=== PATIENT | male | born 1950 | race Caucasian/White ===

== ENCOUNTER → 2021-02-24 08:19 | Outpatient (CLI) | payer MEDICARE, SELFPAY ==
--- NOTE | ~2021-02-24 | CT_ITS ---
EXAMINATION: CT thoracic spine wo con DATE: 02/24/2021 08:52 INDICATION: Thoracic back pain. TECHNIQUE: Computed tomography (CT) of the thoracic spine was performed without intravenous contrast. Automated exposure control and iterative reconstruction technique were employed. The dose-length pro duct was 1058.02 mGy-cm. COMPARISON: None FINDINGS: There is 7 degrees dextrocurvature of thoracic spine. There is mild chronic anterior wedgin g of T5-T8, T11, and T12 vertebral bodies. There is severely decreased disc height from T5-T6 through T8-T9. There is mild to moderately decreased disc height at most other levels. There are bridging en dplate osteophytes from T5 to T12, consistent with diffuse idiopathic skeletal hyperostosis (DISH). T here is multilevel mild facet joint osteoarthritis. No neural foraminal stenosis or central canal maurizio nosis. There is ectasia of ascending aorta measuring 4.4 cm. The central pulmonary arteries are enlar ged, consistent with pulmonary arterial hypertension. A calcified right lung nodule and calcified rig ht hilar lymph nodes are consistent with old granulomatous disease. Cardiomegaly is noted. There are coronary artery calcifications. There are changes of aortic valve replacement and coronary artery byp ass grafting. There are surgical changes of the stomach. Calcifications in the spleen are consistent with old granulomatous disease. IMPRESSION: 1. Severe thoracic spondylosis. 2. DISH. Reviewed, dictated and finalized at location B.
--- NOTE | ~2021-02-24 | CT_ITS ---
EXAMINATION: CT lumbar spine wo con DATE: 02/24/2021 08:52 INDICATION: Lumbar spinal stenosis. Low back pain. TECHNIQUE: Computed tomography (CT) of the lumbar spine was performed without intravenous contrast. A utomated exposure control and iterative reconstruction technique were employed. The dose-length produ ct was 1037.84 mGy-cm. COMPARISON: None FINDINGS: There is 3 degrees levocurvature of lumbar spine. There is mild chronic anterior wedging of T12 vertebral body. There is mildly decreased disc height at T11-T12 and T12-L1. The following disc levels are specifically discussed: L1-L2: The disc does not extend beyond the endplate margin. There is mild bilateral facet joint osteo arthritis. There is no neural foraminal stenosis. There is no central canal stenosis. L2-L3: The disc is mildly bulging. There is severe bilateral facet joint osteoarthritis. There is no neural foraminal stenosis. There is no central canal stenosis. L3-L4: The disc is bulging. There is severe bilateral facet joint osteoarthritis. There is mild bilat eral neural foraminal stenosis. There is mild central canal stenosis. L4-L5: The disc is bulging. There is severe bilateral facet joint osteoarthritis. There is mild bilat eral neural foraminal stenosis. There is no central canal stenosis. L5-S1: The disc does not extend beyond the endplate margin. There is severe bilateral facet joint ost eoarthritis. There is mild bilateral neural foraminal stenosis. There is no central canal stenosis. IMPRESSION: 1. Mild lumbar spondylosis. Reviewed, dictated and finalized at location B. IMPRESSION: 1. Mild lumbar spondylosis.
== END ==
PROVIDERS: PCP Internal Medicine; Visit Provider Internal Medicine
DX: M47.894 Other spondylosis, thoracic region (principal); M48.14 Ankylosing hyperostosis [Forestier], thoracic region; M47.896 Other spondylosis, lumbar region
CPT/HCPCS: 72128; 72131

== ENCOUNTER 2022-04-17 17:42 | Emergency (ER) | payer MEDICARE, SELFPAY ==
--- NOTE | ~2022-04-17 | XR_ITS ---
EXAM: XR knee LT 3V, XR tibia fibula LT 2V DATE: 04/17/2022 18:35 (accession [id number]), 04/17/2022 18:36 (accession [id number]) HISTORY: fall injury,fall 1 wk ago,abrasions ant Lt knee, edema left lower leg. COMPARISON: None available. FINDINGS: Decreased mineralization. Left knee arthroplasty, without hardware fracture or abnormal pe rihardware lucency. Small volume left knee joint fluid. No fracture or dislocation. Mild degenerative change at the ankle joint. IMPRESSION: No acute osseous finding in the left knee or left tibia/fibula. Reviewed, dictated and finalized at location K. IMPRESSION: No acute osseous finding in the left knee or left tibia/fibula.
--- NOTE | ~2022-04-17 | XR_ITS ---
EXAM: XR elbow LT min 3V DATE: 04/17/2022 18:34 HISTORY: fall injury;fell 1 wk ago, abrasion post Lt elbow . COMPARISON: None available. FINDINGS: Normal mineralization. No fracture or dislocation. No lytic or blastic lesion. Joint space s are maintained. No erosion or periosteal change. Multiple surgical clips in the mid forearm. IMPRESSION: No acute osseous finding in the left elbow. Reviewed, dictated and finalized at location K.
[2022-04-17 17:45] VITALS: BP 151/88; PULSE 84; RESP 16; TEMP 36.4; O2SAT 98
--- NOTE | 2022-04-17 18:06 | ED.LOWEXIN ---
HPI - Extremity Injury (Lower) General Chief Complaint: Extremity Injury, Lower Stated Complaint: fall last tuesday, busted arm and leg Time Seen by Provider: 04/17/22 17:54 History of Present Illness HPI Narrative: 72-year-old male presents to the emergency room complaints of multiple injuries following a fall. Patient states 7 days ago he suffered a mechanical fall from standing position, landing directly on his left knee and then rolled onto his left elbow and lower back. Patient states that he suffered abrasions to his left knee and left elbow. Patient is currently taking Coumadin. Patient states that he noticed bruising immediately around his left knee which then spread into his bowen and ankle. Patient states that left knee pain is worse with ambulation, but is able to bear weight. Denies head injury. Denies neck or back pain. Related Data Home Medications Medication Instructions Recorded Confirmed alprazolam 1 mg tablet 1 mg PO TID PRN 04/30/20 04/13/22 aspirin 81 mg chewable tablet 81 mg PO DAILY 04/30/20 04/13/22 clotrimazole-betamethasone 1 1 applic topical BID 04/30/20 04/13/22 %-0.05 % topical cream docusate sodium 100 mg capsule 100 mg PO BID 04/30/20 04/13/22 (Colace) dutasteride 0.5 mg-tamsulosin ER 1 cap PO DAILY 04/30/20 04/13/22 0.4 mg capsule ext.release 24hr mphas (Bibiana) empagliflozin 10 mg tablet 10 mg PO DAILY 04/30/20 04/13/22 (Jardiance) finasteride 5 mg tablet 5 mg PO DAILY 04/30/20 04/13/22 furosemide 20 mg tablet 20 mg PO QAM 04/30/20 04/13/22 hydrocodone 10 mg-acetaminophen 15 ml PO Q12H PRN 04/30/20 04/13/22 325 mg/15 mL (15 mL) oral solution isosorbide mononitrate 30 mg 30 mg PO DAILY 04/30/20 04/13/22 tablet,extended release 24 hr metoprolol tartrate 50 mg tablet 50 mg PO Q12H 04/30/20 04/13/22 nitroglycerin 0.3 mg sublingual 0.3 mg sublingual Q5M PRN 04/30/20 04/13/22 tablet (Nitrostat) rosuvastatin 10 mg tablet (Crestor) 10 mg PO DAILY 04/30/20 04/13/22 sitagliptin 100 mg tablet (Januvia) 100 mg PO DAILY 04/30/20 04/13/22 solifenacin 10 mg tablet (Vesicare) 10 mg PO DAILY 04/30/20 04/13/22 torsemide 20 mg tablet 20 mg PO QAM 04/30/20 04/13/22 triamcinolone acetonide 0.1 % 1 applic topical BID PRN 04/30/20 04/13/22 topical cream valsartan 80 mg tablet (Diovan) 80 mg PO DAILY 04/30/20 04/13/22 warfarin 7.5 mg tablet 7.5 mg PO 2XW 04/30/20 04/13/22 insulin detemir U-100 100 unit/mL 25 unit subcut QHS 03/16/22 04/13/22 (3 mL) subcutaneous pen (Levemir FlexTouch U-100 Insulin) metformin 1,000 mg 24 hr 1,000 mg PO BID 03/16/22 04/13/22 tablet,extended release pantoprazole 40 mg tablet,delayed 40 mg PO QAM 03/16/22 04/13/22 release tamsulosin 0.4 mg capsule 0.4 mg PO DAILY 03/16/22 04/13/22 Allergies Allergy/AdvReac Type Severity Reaction Status Date / Time No Known Allergies Allergy Verified 04/13/22 10:35 Review of Systems Review of Systems: CONSTITUTIONAL: Denies fever, chills, or sweats. EYES: Denies visual changes, redness, or discharge. ENT: Denies rhinorrhea, congestion, sore throat, or otalgia. CARDIOVASCULAR: Denies chest pain, palpitations, or edema. RESPIRATORY: Denies cough or dyspnea. GASTROINTESTINAL: Denies abdominal pain, nausea, vomiting, or diarrhea. GENITOURINARY: Denies dysuria or hematuria. SKIN: Reports abrasions to left knee and left elbow MUSCULOSKELETAL: Reports left knee and left elbow pain NEUROLOGIC: Denies headache, numbness, dizziness, or weakness. PSYCHIATRIC: Denies anxiety or depression. [facility], [facility] Past Medical History Medical History Anxiety Arthritis HTN (hypertension) Family History Family History Father Diabetes mellitus Heart disease Mother Heart disease Social History Social History Smoking status: Never smoker Alcohol intake: never Substance
[2022-04-17 18:55] LABS: Basophils Percent Auto 0.3 % (0.2-1.2); Eosinophils Absolute Auto 0.1 K/mm3 (0-0.3); Eosinophils Percent Auto 0.8 % (0-4.4); Hematocrit 34.2 % (42.0-52.0); Hemoglobin 10.9 g/dL (14.0-18.0); Immature Granulocyte Absolute 0.03 K/mm3 (0.00-0.031); Immature Granulocyte Percent A 0.3 % (0-0.5); Lymphocytes Absolute Auto 1.82 K/mm3 (0.9-3.2); Lymphocytes Percent Auto 18.2 % (18.3-44.2); Mean Corpuscular HGB Conc 31.9 g/dl (32-36); Mean Corpuscular Hemoglobin 28.2 pg (26-34); Mean Corpuscular Volume 88.4 fl (80-100); Mean Platelet Volume 9.4 fl (7.4-10.4); Monocytes Percent Auto 10.4 % (2.6-8.5); Platelet Count Result 204 k/mm3 (150-375); Red Blood Count 3.87 M/mm3 (4.6-6.20); Red Cell Distribution Width 13.8 % (11.5-14.5)
[2022-04-17 19:04] LABS: Alanine Aminotransferase 14 U/L (6-50); Albumin Level 3.7 g/dL (3.5-5.1); Alkaline Phosphatase 60 U/L (38-126); Anion Gap 6 mmol/L (8-16); Aspartate Amino Transferase 19 U/L (17-59); Bilirubin,Total 0.4 mg/dL (0.2-1.3); Blood Urea Nitrogen 18 mg/dL (9-20); Calcium 8.4 mg/dL (8.4-10.2); Carbon Dioxide 31 mmol/L (22-30); Chloride 102 mmol/L (98-107); Estimated CRCL calculation 97 ml/min; Estimated Glomerular Filt Rate > 60; Glucose 177 mg/dL (65-110); Sodium 139 mmol/L (137-145)
[2022-04-17 19:06] LABS: Prothrombin Time 30.4 Seconds (11.1-14.7)
[2022-04-17] MEDS: CEPHALEXIN 500 MG CAPSULE PO (19:29)
== END 2022-04-17 19:43 | disposition home or self-care (01) ==
PROVIDERS: Emergency Provider Nurse Practitioner Family; PCP Family Medicine
DX: S50.02XA Contusion of left elbow, initial encounter (principal); S80.212A Abrasion, left knee, initial encounter; L08.9 Local infection of the skin and subcutaneous tissue, unspecified; I10 Essential (primary) hypertension; M19.90 Unspecified osteoarthritis, unspecified site; Z79.4 Long term (current) use of insulin; Z79.84 Long term (current) use of oral hypoglycemic drugs; Z79.01 Long term (current) use of anticoagulants; W18.30XA Fall on same level, unspecified, initial encounter
CPT/HCPCS: 36415; 73080; 73562; 73590; 80053; 83605; 85025; 85610; 87070; 87205; 99284; A9270

== ENCOUNTER → 2022-04-30 09:07 | Outpatient (CLI) | payer MEDICARE, SELFPAY ==
--- NOTE | ~2022-04-30 | MR_ITS ---
EXAMINATION: MR lower leg LT wo con DATE: 04/30/2022 10:06 INDICATION: Cellulitis at the left leg TECHNIQUE: Magnetic resonance imaging (MRI) of the left lower leg was performed without intravenous c ontrast. Sequences included axial, sagittal and coronal T1-weighted FSE and fluid sensitive FSE STIR. The contralateral right lower leg is included on the coronal images. COMPARISON: Radiographs dated FINDINGS: Metallic magnetic field artifact about the left knee associated with a total knee arthroplasty. Catarina l bone marrow signal throughout the bilateral lower legs. Prominent enthesopathic ossification at the distal patellar tendon. Focal asymmetric diffuse fatty atrophy of the musculature at the bilateral l ower legs. Diffuse subcutaneous edema throughout the bilateral calves including minimal fluid along t he margins of the superficial muscular fascia particularly at the posterior calves. No abnormal locul ated fluid collections to suggest abscess or hematoma. Visualized portion of the tendons are normal. IMPRESSION: 1. Relatively symmetric diffuse subcutaneous edema at the bilateral calves with no abscess. 2. Likely age-related symmetric mild diffuse fatty atrophy of the musculature of the bilateral lower legs. Reviewed, dictated and finalized at location B. IMPRESSION: 1. Relatively symmetric diffuse subcutaneous edema at the bilateral calves with no abscess. 2. Likely age-related symmetric mild diffuse fatty atrophy of the musculature o f the bilateral lower legs.
== END ==
PROVIDERS: PCP Internal Medicine; Visit Provider Internal Medicine
DX: T79.A22A Traumatic compartment syndrome of left lower extremity, initial encounter (principal); S80.12XA Contusion of left lower leg, initial encounter; X58.XXXA Exposure to other specified factors, initial encounter
CPT/HCPCS: 73718

== ENCOUNTER 2022-06-01 15:03 | Outpatient (CLI) | payer MEDICARE, SELFPAY ==
[2022-06-01 18:36] LABS: Basophils Percent Auto 0.2 % (0.2-1.2); Eosinophils Absolute Auto 0.1 K/mm3 (0-0.3); Eosinophils Percent Auto 1.1 % (0-4.4); Hematocrit 40.4 % (42.0-52.0); Hemoglobin 12.5 g/dL (14.0-18.0); Immature Granulocyte Absolute 0.04 K/mm3 (0.00-0.031); Immature Granulocyte Percent A 0.4 % (0-0.5); Lymphocytes Absolute Auto 2.37 K/mm3 (0.9-3.2); Lymphocytes Percent Auto 24.7 % (18.3-44.2); Mean Corpuscular HGB Conc 30.9 g/dl (32-36); Mean Corpuscular Hemoglobin 27.4 pg (26-34); Mean Corpuscular Volume 88.4 fl (80-100); Mean Platelet Volume 10.1 fl (7.4-10.4); Neutrophils Absolute Auto 6.1 K/mm3 (1.3-6.7); Neutrophils Percent Auto 63.6 % (45.5-73.1); Platelet Count Result 210 k/mm3 (150-375); Red Blood Count 4.57 M/mm3 (4.6-6.20); Red Cell Distribution Width 13.9 % (11.5-14.5); White Blood Count 9.6 K/mm3 (4.5-10.0)
[2022-06-01 18:48] LABS: Alanine Aminotransferase 12 U/L (6-50); Albumin Level 4.2 g/dL (3.5-5.1); Alkaline Phosphatase 59 U/L (38-126); Anion Gap 11 mmol/L (8-16); Aspartate Amino Transferase 30 U/L (17-59); Bilirubin,Total 0.3 mg/dL (0.2-1.3); Blood Urea Nitrogen 18 mg/dL (9-20); Calcium 8.9 mg/dL (8.4-10.2); Carbon Dioxide 27 mmol/L (22-30); Chloride 105 mmol/L (98-107); Cholesterol 144 mg/dL (0-200); Estimated Glomerular Filt Rate > 60; Glucose 98 mg/dL (65-110); HDL Direct 39 mg/dL; Potassium 4.2 mmol/L (3.4-5.0); Sodium 143 mmol/L (137-145); Triglycerides 190 mg/dL (<150)
[2022-06-01 19:04] LABS: LDL Cholesterol Direct 54 mg/dL
[2022-06-01 19:10] LABS: Creatinine Urine 192.3 mg/dL
[2022-06-01 19:13] LABS: MALB Creatinine Ratio 18.8 mg/g (0-30); Microalbumin Urine Random 36.2 mg/L (0-16.7)
[2022-06-01 19:24] LABS: INR 1.8; Prothrombin Time 20.6 Seconds (11.1-14.7)
[2022-06-01 20:28] LABS: Prostate Specific Antigen 0.8 ng/mL (< OR = 4.0)
[2022-06-01 20:32] LABS: Hemoglobin A1C 6.3 % (<5.7)
[2022-06-01 21:07] LABS: Folic Acid 10.5 ng/mL (2.76->20)
== END 2022-06-01 15:04 | disposition home or self-care (01) ==
LOC: ANHGOSHLAB 15:05
PROVIDERS: PCP Internal Medicine; Visit Provider Internal Medicine
DX: Z12.5 Encounter for screening for malignant neoplasm of prostate (principal); Z95.5 Presence of coronary angioplasty implant and graft; I25.10 Atherosclerotic heart disease of native coronary artery without angina pectoris; Z79.01 Long term (current) use of anticoagulants; E11.9 Type 2 diabetes mellitus without complications; Z95.2 Presence of prosthetic heart valve; D64.9 Anemia, unspecified
CPT/HCPCS: 36415; 80053; 80061; 82043; 82607; 82728; 82746; 83036; 84153; 85025; 85610; G0103

== ENCOUNTER 2022-06-14 09:05 | Outpatient (CLI) | payer MEDICARE, SELFPAY ==
[2022-06-14 19:28] LABS: INR 1.6; Prothrombin Time 18.3 Seconds (11.1-14.7)
== END 2022-06-14 09:06 | disposition home or self-care (01) ==
PROVIDERS: PCP Internal Medicine; Visit Provider Internal Medicine Cardiovascular Disease
DX: I25.810 Atherosclerosis of coronary artery bypass graft(s) without angina pectoris (principal)
CPT/HCPCS: 36415; 85610

== ENCOUNTER 2022-06-22 13:22 | Outpatient (CLI) | payer MEDICARE, SELFPAY ==
[2022-06-22 20:43] LABS: INR 3.5; Prothrombin Time 34.3 Seconds (11.1-14.7)
== END 2022-06-22 13:23 | disposition home or self-care (01) ==
LOC: ANHGOSHLAB 13:30
PROVIDERS: PCP Internal Medicine; Visit Provider Internal Medicine Cardiovascular Disease
DX: Z79.01 Long term (current) use of anticoagulants (principal)
CPT/HCPCS: 36415; 85610

== ENCOUNTER → 2022-07-01 09:13 | Outpatient (CLI) | payer MEDICARE, SELFPAY ==
--- NOTE | ~2022-07-01 | XR_ITS ---
XR chest 2V 07/01/2022 09:32 Indication: Cough. Wheezing. Procedure: PA and lateral views the chest Comparison: No prior studies for comparison. Findings: Status post median sternotomy for CABG. Cardiomegaly. There is a prosthetic heart valve. No pleural effusion or pneumothorax. No acute osseous abnormality. Mild thoracic spondylosis. Impression: 1: No acute cardiopulmonary disease. Reviewed, dictated and finalized at location A. Impression: 1: No acute cardiopulmonary disease.
== END ==
PROVIDERS: PCP Internal Medicine; Visit Provider Internal Medicine
DX: R05.9 Cough, unspecified (principal)
CPT/HCPCS: 71046

== ENCOUNTER 2022-07-15 10:40 | Outpatient (RCR) | payer MEDICARE, SELFPAY ==
[2022-07-15 19:46] LABS: Basophils Percent Auto 0.3 % (0.2-1.2); Eosinophils Absolute Auto 0.1 K/mm3 (0-0.3); Eosinophils Percent Auto 1.3 % (0-4.4); Hematocrit 39.2 % (42.0-52.0); Hemoglobin 12.8 g/dL (14.0-18.0); Immature Granulocyte Absolute 0.03 K/mm3 (0.00-0.031); Immature Granulocyte Percent A 0.3 % (0-0.5); Lymphocytes Absolute Auto 2.33 K/mm3 (0.9-3.2); Mean Corpuscular HGB Conc 32.7 g/dl (32-36); Mean Corpuscular Hemoglobin 27.2 pg (26-34); Mean Corpuscular Volume 83.2 fl (80-100); Mean Platelet Volume 10.4 fl (7.4-10.4); Monocytes Percent Auto 8.8 % (2.6-8.5); Neutrophils Absolute Auto 7.6 K/mm3 (1.3-6.7); Neutrophils Percent Auto 68.3 % (45.5-73.1); Platelet Count Result 218 k/mm3 (150-375); Red Blood Count 4.71 M/mm3 (4.6-6.20); Red Cell Distribution Width 14.2 % (11.5-14.5); White Blood Count 11.1 K/mm3 (4.5-10.0)
[2022-07-15 20:20] LABS: Hemoglobin A1C 6.2 % (<5.7)
[2022-07-15 21:26] LABS: Folic Acid 10.4 ng/mL (2.76->20)
== END 2022-07-15 10:41 | disposition home or self-care (01) ==
LOC: ANHGOSHLAB 10:40
PROVIDERS: PCP Internal Medicine; Visit Provider Internal Medicine
DX: D51.9 Vitamin B12 deficiency anemia, unspecified (principal); D64.9 Anemia, unspecified; E11.9 Type 2 diabetes mellitus without complications
CPT/HCPCS: 36415; 82607; 82746; 83036; 85025

== ENCOUNTER 2022-09-23 08:51 | Outpatient (CLI) | payer MEDICARE, SELFPAY ==
[2022-09-23 19:46] LABS: Hematocrit 39.7 % (42.0-52.0); Hemoglobin 12.5 g/dL (14.0-18.0); Mean Corpuscular HGB Conc 31.5 g/dl (32-36); Mean Corpuscular Hemoglobin 26.6 pg (26-34); Mean Corpuscular Volume 84.5 fl (80-100); Mean Platelet Volume 10.1 fl (7.4-10.4); Platelet Count Result 208 k/mm3 (150-375); Red Cell Distribution Width 14.1 % (11.5-14.5)
[2022-09-23 20:29] LABS: Hemoglobin A1C 7.3 % (<5.7)
== END 2022-09-23 08:52 | disposition home or self-care (01) ==
PROVIDERS: PCP Internal Medicine; Visit Provider Internal Medicine
DX: E11.59 Type 2 diabetes mellitus with other circulatory complications (principal); Z79.4 Long term (current) use of insulin; D51.9 Vitamin B12 deficiency anemia, unspecified
CPT/HCPCS: 36415; 82607; 83036; 85027

== ENCOUNTER 2022-09-23 09:36 | Outpatient (RCR) | payer MEDICARE, SELFPAY ==
[2022-07-19 19:26] LABS: INR 2.6; Prothrombin Time 26.7 Seconds (11.1-14.7)
[2022-09-23 19:35] LABS: Prothrombin Time 22.4 Seconds (11.1-14.7)
== END 2022-10-17 23:59 | disposition home or self-care (01) ==
LOC: ANHGOSHLAB 09:36
PROVIDERS: PCP Internal Medicine; Referring Provider Internal Medicine Cardiovascular Disease; Visit Provider Internal Medicine Cardiovascular Disease
DX: Z51.81 Encounter for therapeutic drug level monitoring (principal); E11.59 Type 2 diabetes mellitus with other circulatory complications; Z79.4 Long term (current) use of insulin; Z79.01 Long term (current) use of anticoagulants
CPT/HCPCS: 36415; 82607; 83036; 85027; 85610

== ENCOUNTER → 2022-10-25 13:24 | Outpatient (CLI) | payer MEDICARE, SELFPAY ==
--- NOTE | ~2022-10-25 | XR_ITS ---
Clinical Indication: Cough, shortness of breath AP and lateral views of the chest: Comparison: 07/01/2022 Findings: Small bilateral pleural effusions are present. Cardiomediastinal silhouette is stable, sta tus post CABG. Bones and soft tissues are unremarkable. Impression: Small bilateral pleural effusions. Status post CABG and cardiac valve replacement. Reviewed, dictated and finalized at location . [employer] Impression: Small bilateral pleural effusions. Status post CABG and cardiac valve replacement.
== END ==
PROVIDERS: PCP Clinical Nurse Specialist; Visit Provider Clinical Nurse Specialist
DX: R05.9 Cough, unspecified (principal); R06.02 Shortness of breath; J90 Pleural effusion, not elsewhere classified
CPT/HCPCS: 71046

== ENCOUNTER 2023-01-03 08:01 | Outpatient (CLI) | payer MEDICARE, SELFPAY ==
[2023-01-03 18:56] LABS: Alanine Aminotransferase 20 U/L (6-50); Albumin Level 3.9 g/dL (3.5-5.1); Alkaline Phosphatase 67 U/L (38-126); Anion Gap 6 mmol/L (8-16); Aspartate Amino Transferase 42 U/L (17-59); Bilirubin,Total 0.6 mg/dL (0.2-1.3); Blood Urea Nitrogen 28 mg/dL (9-20); Calcium 8.8 mg/dL (8.4-10.2); Carbon Dioxide 28 mmol/L (22-30); Chloride 105 mmol/L (98-107); Cholesterol 143 mg/dL (0-200); Estimated Glomerular Filt Rate > 60; Glucose 108 mg/dL (65-110); HDL Direct 33 mg/dL; Potassium 4.1 mmol/L (3.4-5.0); Sodium 139 mmol/L (137-145); Triglycerides 310 mg/dL (<150)
[2023-01-03 19:09] LABS: LDL Cholesterol Direct 57 mg/dL
[2023-01-03 19:36] LABS: Hematocrit 43.1 % (42.0-52.0); Mean Corpuscular HGB Conc 32.5 g/dl (32-36); Mean Corpuscular Hemoglobin 27.5 pg (26-34); Mean Corpuscular Volume 84.5 fl (80-100); Mean Platelet Volume 10.9 fl (7.4-10.4); Platelet Count Result 249 k/mm3 (150-375); Red Cell Distribution Width 15.3 % (11.5-14.5); White Blood Count 11.2 K/mm3 (4.5-10.0)
[2023-01-03 20:10] LABS: Hemoglobin A1C 7.2 % (<5.7)
== END 2023-01-03 08:02 | disposition home or self-care (01) ==
LOC: ANHGOSHLAB 08:03
PROVIDERS: PCP Internal Medicine; Visit Provider Internal Medicine
DX: E11.59 Type 2 diabetes mellitus with other circulatory complications (principal); I25.810 Atherosclerosis of coronary artery bypass graft(s) without angina pectoris; Z79.4 Long term (current) use of insulin
CPT/HCPCS: 36415; 80053; 80061; 83036; 85027

== ENCOUNTER 2023-01-18 07:57 | Outpatient (RCR) | payer MEDICARE, SELFPAY ==
[2022-10-22 20:00] LABS: INR 2.7
[2022-11-05 21:23] LABS: INR 3.7; Prothrombin Time 35.9 Seconds (11.1-14.7)
[2022-11-19 17:34] LABS: INR 2.3; Prothrombin Time 24.7 Seconds (11.1-14.7)
[2022-12-03 20:25] LABS: INR 2.1
[2022-12-10 19:50] LABS: INR 2.3; Prothrombin Time 24.2 Seconds (11.1-14.7)
[2022-12-24 20:09] LABS: INR 1.8; Prothrombin Time 20.4 Seconds (11.1-14.7)
[2023-01-03 19:07] LABS: INR 2.9; Prothrombin Time 29.2 Seconds (11.1-14.7)
[2023-01-18 10:30] LABS: INR 1.3; Prothrombin Time 15.4 Seconds (11.1-14.7)
== END 2023-01-20 23:59 | disposition home or self-care (01) ==
LOC: ANHGOSHLAB 07:57
PROVIDERS: PCP Internal Medicine; Visit Provider Internal Medicine Cardiovascular Disease
DX: Z51.81 Encounter for therapeutic drug level monitoring (principal); Z79.01 Long term (current) use of anticoagulants; Z79.899 Other long term (current) drug therapy
CPT/HCPCS: 36415; 80053; 80061; 83036; 85027; 85610

== ENCOUNTER 2023-02-08 08:15 | Outpatient (RCR) | payer MEDICARE, SELFPAY ==
[2023-01-31 18:48] LABS: INR 4.7; Prothrombin Time 42.5 Seconds (11.1-14.7)
[2023-02-08 20:17] LABS: INR 2.5; Prothrombin Time 26.2 Seconds (11.1-14.7)
== END 2023-05-01 23:59 | disposition home or self-care (01) ==
LOC: ANHGOSHLAB 08:15
PROVIDERS: PCP Internal Medicine; Visit Provider Internal Medicine
DX: Z51.81 Encounter for therapeutic drug level monitoring (principal); Z79.01 Long term (current) use of anticoagulants
CPT/HCPCS: 36415; 85610

== ENCOUNTER 2023-05-02 08:16 | Outpatient (CLI) | payer MEDICARE, SELFPAY ==
[2023-05-02 15:56] LABS: Hematocrit 41.4 % (42.0-52.0); Hemoglobin 13.4 g/dL (14.0-18.0); Mean Corpuscular HGB Conc 32.4 g/dl (32-36); Mean Corpuscular Hemoglobin 28.1 pg (26-34); Mean Corpuscular Volume 86.8 fl (80-100); Mean Platelet Volume 10.4 fl (7.4-10.4); Platelet Count Result 186 k/mm3 (150-375); Red Blood Count 4.77 M/mm3 (4.6-6.20); White Blood Count 8.6 K/mm3 (4.5-10.0)
[2023-05-02 17:32] LABS: Hemoglobin A1C 5.7 % (<5.7)
[2023-05-02 17:46] LABS: Alanine Aminotransferase 15 U/L (6-50); Albumin Level 3.9 g/dL (3.5-5.1); Alkaline Phosphatase 47 U/L (38-126); Anion Gap 7 mmol/L (8-16); Aspartate Amino Transferase 25 U/L (17-59); Bilirubin,Total 0.4 mg/dL (0.2-1.3); Blood Urea Nitrogen 16 mg/dL (9-20); Calcium 8.7 mg/dL (8.4-10.2); Carbon Dioxide 27 mmol/L (22-30); Chloride 104 mmol/L (98-107); Cholesterol 118 mg/dL (0-200); Estimated Glomerular Filt Rate > 60; Glucose 141 mg/dL (65-110); HDL Direct 33 mg/dL; Potassium 3.5 mmol/L (3.4-5.0); Sodium 138 mmol/L (137-145); Triglycerides 199 mg/dL (<150)
[2023-05-02 17:57] LABS: LDL Cholesterol Direct 46 mg/dL
== END 2023-05-02 08:17 | disposition home or self-care (01) ==
LOC: ANHGOSHLAB 08:19
PROVIDERS: PCP Internal Medicine; Visit Provider Internal Medicine
DX: E11.59 Type 2 diabetes mellitus with other circulatory complications (principal); Z79.4 Long term (current) use of insulin
CPT/HCPCS: 36415; 80053; 80061; 83036; 85027

== ENCOUNTER 2023-05-19 08:59 | Outpatient (RCR) | payer MEDICARE, SELFPAY ==
[2023-03-01 20:05] LABS: Prothrombin Time 61.2 Seconds (11.1-14.7)
[2023-03-01 20:38] LABS: INR 7.4
[2023-03-07 14:00] LABS: INR 3.9; Prothrombin Time 42.1 Seconds (11.1-14.7)
[2023-03-14 18:47] LABS: INR 1.3; Prothrombin Time 16.4 Seconds (11.1-14.7)
[2023-03-21 19:05] LABS: INR 2.5; Prothrombin Time 29.3 Seconds (11.1-14.7)
[2023-04-05 14:26] LABS: Prothrombin Time 67.4 Seconds (11.1-14.7)
[2023-04-11 20:26] LABS: INR 1.7
[2023-04-18 14:41] LABS: INR 3.8; Prothrombin Time 41.1 Seconds (11.1-14.7)
[2023-04-25 14:31] LABS: INR 4.9; Prothrombin Time 50.3 Seconds (11.1-14.7)
[2023-05-02 16:07] LABS: INR 4.9; Prothrombin Time 50.4 Seconds (11.1-14.7)
[2023-05-19 14:56] LABS: INR 1.7; Prothrombin Time 21.6 Seconds (11.1-14.7)
== END 2023-05-30 23:59 | disposition home or self-care (01) ==
LOC: ANHGOSHLAB 08:59
PROVIDERS: PCP Internal Medicine; Visit Provider Internal Medicine Cardiovascular Disease
DX: Z51.81 Encounter for therapeutic drug level monitoring (principal); Z79.01 Long term (current) use of anticoagulants; Z79.899 Other long term (current) drug therapy
CPT/HCPCS: 36415; 80053; 80061; 83036; 85027; 85610

== ENCOUNTER 2023-07-28 08:29 | Emergency (ER) | payer MEDICARE, SELFPAY ==
--- NOTE | ~2023-07-28 | XR_ITS ---
Clinical Indication: Palpitations PA and lateral views of the chest: Comparison: 10/25/2022 Findings: Possible minimal right pleural effusion. Left lung clear. Cardiomediastinal silhouette is stable, status post probable CABG. Bones and soft tissues are unremarkable. Impression: Possible minimal right pleural effusion. Stable cardiomegaly, status post probable CABG. Reviewed, dictated and finalized at location . Impression: Possible minimal right pleural effusion. Stable cardiomegaly, status post probable CABG.
--- NOTE | 2023-07-28 08:31 | ECG_ITS ---
Measurements Intervals [place] Rate: 83 P: DE: 0 QRS: -28 QRSD: 116 T: 136 QT: 380 QTc: 447 Interpretive Statements ATRIAL FIBRILLATION FREQUENT VENTRICULAR PREMATURE COMPLEXES INTRAVENTRICULAR CONDUCTION DELAY DELAYED PRECORDIAL R/S TRANSITION LEFT VENTRICULAR HYPERTROPHY WITH ST-T CHANGE ABNORMAL ECG NO PREVIOUS ECG AVAILABLE FOR COMPARISON Electronically Signed On 07-28-2023 8:55:25 CDT by Enrique Vela D.O.
[2023-07-28 08:49] LABS: Basophils Percent Auto 0.3 % (0.2-1.2); Eosinophils Percent Auto 0.4 % (0-4.4); Hematocrit 39.6 % (42.0-52.0); Hemoglobin 12.5 g/dL (14.0-18.0); Immature Granulocyte Absolute 0.02 K/mm3 (0.00-0.031); Immature Granulocyte Percent A 0.3 % (0-0.5); Lymphocytes Absolute Auto 1.05 K/mm3 (0.9-3.2); Lymphocytes Percent Auto 13.6 % (18.3-44.2); Mean Corpuscular HGB Conc 31.6 g/dl (32-36); Mean Corpuscular Hemoglobin 27.9 pg (26-34); Mean Corpuscular Volume 88.4 fl (80-100); Mean Platelet Volume 9.9 fl (7.4-10.4); Monocytes Absolute Auto 0.7 K/mm3 (0.1-0.6); Monocytes Percent Auto 8.7 % (2.6-8.5); Neutrophils Absolute Auto 5.9 K/mm3 (1.3-6.7); Neutrophils Percent Auto 76.7 % (45.5-73.1); Platelet Count Result 146 k/mm3 (150-375); Red Blood Count 4.48 M/mm3 (4.6-6.20); Red Cell Distribution Width 14.9 % (11.5-14.5); White Blood Count 7.7 K/mm3 (4.5-10.0)
[2023-07-28 08:50] VITALS: BP 153/77; PULSE 82; RESP 18; TEMP 36.5; O2SAT 97
[2023-07-28 09:01] LABS: INR 3.6; Partial Thromboplastin Time 41.3 SECONDS (22.3-36.8); Prothrombin Time 39.3 Seconds (11.1-14.7)
[2023-07-28 09:03] LABS: Alanine Aminotransferase 16 U/L (6-50); Albumin Level 4.1 g/dL (3.5-5.1); Alkaline Phosphatase 45 U/L (38-126); Anion Gap 6 mmol/L (8-16); Aspartate Amino Transferase 22 U/L (17-59); Bilirubin,Total 0.6 mg/dL (0.2-1.3); Blood Urea Nitrogen 16 mg/dL (9-20); Calcium 8.7 mg/dL (8.4-10.2); Carbon Dioxide 27 mmol/L (22-30); Chloride 108 mmol/L (98-107); Estimated CRCL calculation 101 ml/min; Estimated Glomerular Filt Rate > 60; Glucose 151 mg/dL (65-110); Lipase 70 U/L (23-300); Potassium 3.9 mmol/L (3.4-5.0); Sodium 141 mmol/L (137-145)
[2023-07-28 09:15] LABS: Troponin I < 0.012 ng/mL (0.000-0.034)
[2023-07-28 11:38] VITALS: BP 155/97; PULSE 78; RESP 19; O2SAT 97
[2023-07-28 12:23] LABS: Troponin I < 0.012 ng/mL (0.000-0.034)
[2023-07-28 12:50] VITALS: BP 158/92; PULSE 69; RESP 19; O2SAT 97
[2023-07-28 13:16] LABS: Magnesium 1.7 mg/dL (1.6-2.3)
--- NOTE | 2023-07-28 14:04 | ED.ARRPALP ---
HPI - Arrhythmia/Palpitations General Chief Complaint: Arrhythmia/Palpitations Stated Complaint: palpitations Time Seen by Provider: 07/28/23 11:57 History of Present Illness HPI narrative: Patient is a 73-year-old male who presents ER with irregular heart rate. He has been noticing over the last week. He was recently started on a cardiac event monitor. He sees Dr. Vela. He reports its most noticeable when he is laying down at night trying to sleep because he can hear the clicking of his mechanical valve. He has no dizziness or weakness. No racing the heart. No chest pain or chest pressure. He is found no alleviating factors. Related Data Home Medications Medication Instructions Recorded Confirmed alprazolam 1 mg tablet 1 mg PO TID PRN 04/30/20 07/21/23 aspirin 81 mg chewable tablet 81 mg PO DAILY 04/30/20 07/21/23 docusate sodium 100 mg capsule 100 mg PO BID 04/30/20 07/21/23 (Colace) triamcinolone acetonide 0.1 % 1 applic topical BID PRN 04/30/20 07/21/23 topical cream calcium 600 mg-D3 800 unit-mag11 1 tablet PO DAILY 06/01/22 07/21/23 50 ei-zbcm-sywsiy-matias-s.borat tablet furosemide 20 mg tablet 20 mg PO .2Xweekly PRN 06/01/22 07/21/23 metoprolol tartrate 50 mg tablet 50 mg PO DAILY 06/01/22 07/21/23 multivitamin 1 tablet PO DAILY 06/01/22 07/21/23 citalopram 40 mg tablet 40 mg PO DAILY PRN 09/27/22 07/21/23 omega 2-fkl-xxv-fish oil 1,000 mg 2 cap PO DAILY 01/28/23 07/21/23 (120 mg-180 mg) capsule (Fish Oil) torsemide 20 mg tablet 20 mg PO .prn 01/28/23 07/21/23 semaglutide (weight loss) 0.5 0.5 mg subcut WEEKLY 02/24/23 07/21/23 mg/0.5 mL subcutaneous pen injector Allergies Allergy/AdvReac Type Severity Reaction Status Date / Time No Known Allergies Allergy Verified 07/21/23 09:07 Review of Systems Review of Systems: All systems reviewed & are unremarkable except as noted in HPI and below Cardiovascular: Cardiovascular: Denies chest pain and Denies radiating jaw, neck or arm pain Comments: Irregular heartbeat Respiratory: Respiratory: Reports no additional respiratory complaints Gastrointestinal: Gastrointestinal: Reports no additional gastrointestinal complaints Genitourinary: Genitourinary: Reports no additional male genitourinary complaints [facility] Past Medical History Medical History Allergies Anxiety Arthritis CAD (coronary artery disease) Cellulitis CHF (congestive heart failure) Heart attack Heart disease HTN (hypertension) Morbid obesity due to excess calories Skin cancer Surgical History Surgical History History of bariatric surgery History of left knee replacement History of open heart surgery 1994 Open heart Mechanical Valve Family History Family History Father Diabetes mellitus Heart disease Hypertension Mother Heart disease Social History Social History Smoking status: Never smoker Alcohol intake: never Substance use: never Lack of Transportation: No Lack of Food: Never True Current Housing: I Have Housing Concerned About Future Housing: Decline to Answer Difficulty Paying Gas/Electric Bills: No Difficulty Paying for Meds: No Currently Unemployed: No Education: High School Diploma/GED Difficulty w/ Childcare or Family Care: No Exam Narrative: GENERAL: Well-appearing, well-nourished, and in no acute distress. HEAD: Normocephalic, atraumatic. ENT: Mucous membranes moist. CHEST: Clear to auscultation. No respiratory distress. HEART: Irregular regular rate and rhythm. Mechanical click. Normal peripheral pulses. ABDOMEN: Soft, nontender, nondistended. EXTREMITIES: Normal range of motion. No edema. SKIN: Warm, dry, no rash. NEURO: Alert and oriented x3. PSYCH: Normal mood and affect. Course Course Emerg
[2023-07-28 14:35] VITALS: BP 158/92; PULSE 66; RESP 17; O2SAT 99
== END 2023-07-28 14:36 | disposition home or self-care (01) ==
PROVIDERS: Emergency Provider Emergency Medicine; PCP Internal Medicine
DX: I48.91 Unspecified atrial fibrillation (principal); I49.3 Ventricular premature depolarization; I25.10 Atherosclerotic heart disease of native coronary artery without angina pectoris; I50.9 Heart failure, unspecified; I11.0 Hypertensive heart disease with heart failure; I25.2 Old myocardial infarction; M19.90 Unspecified osteoarthritis, unspecified site; F41.9 Anxiety disorder, unspecified; Z96.652 Presence of left artificial knee joint; Z95.2 Presence of prosthetic heart valve; Z98.84 Bariatric surgery status; Z85.828 Personal history of other malignant neoplasm of skin; Z79.82 Long term (current) use of aspirin; Z79.85 Long-term (current) use of injectable non-insulin antidiabetic drugs; I45.9 Conduction disorder, unspecified; I51.7 Cardiomegaly
CPT/HCPCS: 36415; 71046; 80053; 83690; 83735; 84484; 85025; 85610; 85730; 93005; 99284

== ENCOUNTER 2023-08-12 07:34 | Inpatient (IN) | payer MEDICARE, SELFPAY ==
[2023-08-12] VITALS (13 sets, daily range): BP systolic 116–169; BP diastolic 74–99; PULSE 60–89; RESP 15–16; TEMP 36.3–36.8; O2SAT 93–98; BMI 36.6
--- NOTE | 2023-08-12 | ECHO_ITS ---
Patient Info Name: Reggie Nevarez Age: 73 years : 1950 Gender: Male Ht: 70 in Wt: 254 lbs BSA: 2.43 m2 HR: 74 bpm BP: 116 / 99 mmHg Heart Rhythm: Atrial Fibrillation Technical Quality: Poor Exam Date: 08/12/2023 2:12 PM Exam Location: [facility] Patient Status: Inpatient Admit Date: 08/12/2023 Staff Ordering Physician: Enrique Vela DO [employer] Operator: Danna Coles RDCS Attending Provider: Enrique Vela DO Referring Physician: Dane BAIN; Exam Type: CA echo dop color flow w con Study Info Indications - MECHANICAL AOV, PAF Complete two-dimensional, color flow and Doppler transthoracic echocardiogram is performed with contrast to opacify the left ventricle and to improve the deliniation of the left ventricle endocardial borders. Contrast/Agitated Saline Contrast/Ag. Saline: Definity Amount: 2.00 ml Administered By: Danna Coles RDCS Existing IV Access: Yes Reason for Poor Study: poor echocardiographic windows Summary 1. Technically suboptima study due to poor sonographic images. 2. Definity contrast administered improved wall motion interpretation. 3. Left ventricular chamber dimension is mildly enlarged. 4. Left ventricular systolic function is normal, estimated at 60-65%. 5. There is mild concentric increased left ventricular wall thickness. 6. The left ventricular diastolic function is abnormal. 7. E/e' 24 is elevated. 8. Atrial fibrillation. 9. Left atrial chamber dimension is severely enlarged. 10. Right atrial chamber dimension is severely enlarged. 11. Mechanical aortic valve is not well seen. 12. There is mild regurgitation of the mechanical aortic valve. 13. The mitral valve has moderately calcified annulus. 14. There is mild mitral valve regurgitation. 15. No pulmonary hypertension, estimated pulmonary arterial systolic pressure is 39 mmHg. Left Ventricle E/e' 24 is elevated. Atrial fibrillation. Definity contrast administered improved wall motion interpretation. Left ventricular chamber dimension is mildly enlarged. Left ventricular systolic function is normal, estimated at 60-65%. There is mild concentric increased left ventricular wall thickness. The left ventricular diastolic function is abnormal. Technically suboptima study due to poor sonographic images. Right Ventricle Right ventricular chamber dimension is normal. Right ventricular systolic function is normal. Left Atria Left atrial chamber dimension is severely enlarged. Right Atria Right atrial chamber dimension is severely enlarged. Aortic Valve There is no mechanical aortic valve stenosis by valve area and gradients. Mechanical aortic valve is not well seen. There is mild regurgitation of the mechanical aortic valve. Pulmonic Valve There is no pulmonic regurgitation. Mitral Valve The mitral valve has moderately calcified annulus. There is no mitral valve stenosis. There is mild mitral valve regurgitation. Tricuspid Valve There is no tricuspid valve regurgitation. No pulmonary hypertension, estimated pulmonary arterial systolic pressure is 39 mmHg. Pericardium/Pleural There is no pericardial effusion. Inferior Vena Cava Normal inferior vena cava with >50% collapse upon inspiration consistent with normal right atrial pressure, 5 mmHg. Aorta The aortic root size at the sinus of Valsalva is normal. Left Ventricular Outflow Tract Name Value Normal
--- NOTE | 2023-08-12 07:52 | ECG_ITS ---
Measurements Intervals [place] Rate: 68 P: [place]: 0 QRS: -24 QRSD: 118 T: 143 QT: 413 QTc: 441 Interpretive Statements ATRIAL FIBRILLATION WITH ABERRANT CONDUCTION OR VENTRICULAR PREMATURE COMPLEXES MODERATE INTRAVENTRICULAR CONDUCTION DELAY [105+ ms QRS DURATION, 80+ ms Q/S IN V1/V2, NO Q AND 60+ ms R IN I/aVL/V5/V6] MODERATE VOLTAGE CRITERIA FOR LVH, CONSIDER NORMAL VARIANT [MEETS CRITERIA IN ONE OF: R(aVL), S(V1), R(V5), R(V5/V6)+S(V1)] COMPARED TO ECG 07/28/2023 08:34:22 NO SIGNIFICANT CHANGES Electronically Signed On 08-12-2023 14:26:02 CDT by Velvet Nova M.D.
--- NOTE | 2023-08-12 08:05 | ADMGEN ---
This patient, Reggie Nevarez, was admitted to [facility] 3 AN IMU OVERFLOW STATUS PT FOR SOTALOL LOADING PER DR. DEL ANGEL. Patient/family oriented to hospital policies and general routines including ID bracelet, bed and alarms, visiting hours, pain management, procedures, bathroom and other care routines, personal items, smoking policy, room service/diet, and visiting hours. Information on how to activate the Rapid Response Team has been discussed. Patient/Family are encouraged to report perceived risks to care and to ask questions if they do not understand what they are told or what they should do.
[2023-08-12 08:28] LABS: Alanine Aminotransferase 14 U/L (6-50); Albumin Level 3.8 g/dL (3.5-5.1); Alkaline Phosphatase 48 U/L (38-126); Anion Gap 4 mmol/L (8-16); Aspartate Amino Transferase 20 U/L (17-59); Bilirubin,Total 0.8 mg/dL (0.2-1.3); Blood Urea Nitrogen 16 mg/dL (9-20); Calcium 8.4 mg/dL (8.4-10.2); Carbon Dioxide 26 mmol/L (22-30); Chloride 109 mmol/L (98-107); Estimated CRCL calculation 119 ml/min; Estimated Glomerular Filt Rate > 60; Glucose 140 mg/dL (65-110); Magnesium 1.7 mg/dL (1.6-2.3); Potassium 3.7 mmol/L (3.4-5.0); Sodium 139 mmol/L (137-145)
[2023-08-12 08:36] LABS: Basophils Percent Auto 0.3 % (0.2-1.2); Eosinophils Absolute Auto 0.1 K/mm3 (0-0.3); Eosinophils Percent Auto 0.6 % (0-4.4); Hematocrit 37.9 % (42.0-52.0); Hemoglobin 12.1 g/dL (14.0-18.0); Immature Granulocyte Absolute 0.02 K/mm3 (0.00-0.031); Immature Granulocyte Percent A 0.2 % (0-0.5); Lymphocytes Absolute Auto 1.04 K/mm3 (0.9-3.2); Lymphocytes Percent Auto 11.8 % (18.3-44.2); Mean Corpuscular HGB Conc 31.9 g/dl (32-36); Mean Corpuscular Hemoglobin 28.2 pg (26-34); Mean Corpuscular Volume 88.3 fl (80-100); Mean Platelet Volume 10.5 fl (7.4-10.4); Monocytes Absolute Auto 0.7 K/mm3 (0.1-0.6); Monocytes Percent Auto 7.7 % (2.6-8.5); Neutrophils Percent Auto 79.4 % (45.5-73.1); Platelet Count Result 153 k/mm3 (150-375); Red Blood Count 4.29 M/mm3 (4.6-6.20); Red Cell Distribution Width 14.8 % (11.5-14.5); White Blood Count 8.8 K/mm3 (4.5-10.0)
[2023-08-12] MEDS: SOTALOL HCL 80 MG TABLET PO ×2 (09:24→20:59)
--- NOTE | 2023-08-12 10:22 | PC.NURSE ---
DR. DEL ANGEL TO BEDSIDE TO SEE PT. CONDITION UPDATE GIVEN.
--- NOTE | 2023-08-12 11:27 | ECG_ITS ---
Measurements Intervals [place] Rate: 58 P: [place]: 0 QRS: -22 QRSD: 113 T: 135 QT: 433 QTc: 427 Interpretive Statements ATRIAL FIBRILLATION WITH SLOW VENTRICULAR RESPONSE WITH ABERRANT CONDUCTION OR VENTRICULAR PREMATURE COMPLEXES VOLTAGE CRITERIA FOR LVH [MEETS CRITERIA IN ONE OF: R(aVL), S(V1), R(V5), R(V5/V6)+S(V1)] MODERATE T-WAVE ABNORMALITY, CONSIDER LATERAL ISCHEMIA [-0.1+ mV T WAVE IN I/aVL/V5/V6] COMPARED TO ECG 08/12/2023 08:24:02 NO SIGNIFICANT CHANGES Electronically Signed On 08-12-2023 14:31:46 CDT by Velvet Nova M.D.
--- NOTE | 2023-08-12 12:11 | PM.IMHP ---
H&P: HPI History of Present Illness Date/Time: 08/12/23 12:11 Chief Complaint: Palpitations Narrative: 73 yr old man who is my regular cardiology patient and a patient of Dr. Nova presents as a direct admit for Sotalol loading for symptomatic atrial fibrillation. He has a history of CAD, CABG, mechanical aortic valve, DM, hypertension, dyslipidemia, PAF. He has palpitations, dizziness, sob when resting only for last few weeks. Reports he is limited at walking in from parking lot chronically due to knee pains first then FELICIANO. Denies chest pain, sob, orthopnea, PND, edema, dizziness, palpitations. 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 2004 [facility]: Mechanical aortic valve replacement. 1994 [facility]: 3 vessel CABG. Echo/MUGA:: 10/14/21 Echo at [facility]: TDS, EF 50%, mechanical AVR, mild AI, mild MR, mild LAE, mod LVH, grade I diastolic dysfunction. Electrophysiology:: 07/28/23 EKG: Atrial fibrillation at 83 bpm, frequent PVC's, IVCD, delayed precordial R/S transition, LVH with ST-T changes. 04/13/22 EKG: Sinus rhythm with first degree AV block, IVCD, LVH with ST-T change, BRWP, borderline T wave in anterolateral le Review of Systems Review of Systems: All systems reviewed & are unremarkable except as noted in HPI and below Constitutional: Constitutional: Reports as per HPI, Denies chills, Reports fatigue and Denies fever(s) Cardiovascular: Cardiovascular: Reports as per HPI, Reports chest pain, Reports irregular heart rhythm, Denies leg edema and Reports lightheadedness Respiratory: Respiratory: Reports as per HPI and Reports dyspnea Gastrointestinal: Gastrointestinal: Reports as per HPI and Denies abdominal pain Genitourinary: Genitourinary: Reports as per HPI and Denies dysuria Musculoskeletal: Musculoskeletal: Reports as per HPI Neurologic: Reports as per HPI, Reports dizziness and Denies syncope [facility] Past Medical History Medical History Allergies Anxiety Arthritis CAD (coronary artery disease) Cellulitis CHF (congestive heart failure) Heart attack Heart disease HTN (hypertension) Morbid obesity due to excess calories Skin cancer Surgical History Surgical History History of bariatric surgery History of left knee replacement History of open heart surgery 1994 Open heart Mechanical Valve Family History Family History Father Diabetes mellitus Heart disease Hypertension Mother Heart disease Social History Social History Smoking status: Never smoker Alcohol intake: never Substance use: never Lack of Transportation: No Lack of Food: Never True Current Housing: I Have Housing Concerned About Future Housing: No Difficulty Paying Gas/Electric Bills: No Difficulty Paying for Meds: No Currently Unemployed: No Education: Trade/Vocational Certificate Difficulty w/ Childcare or Family Care: No Spiritual care concerns: No Meds Home Medications and Allergies Home Medications Medication Instructions Recorded Confirmed Type alprazolam 1 mg tablet 1 mg PO TID PRN Anxiety 04/30/20 08/12/23 History aspirin 81 mg chewable tablet 81 mg PO DAILY 04/30/20 08/12/23 History docusate sodium 100 mg capsule 100 mg PO BID 04/30/20 08/12/23 History (Colace) triamcinolone acetonide 0.1 % 1 applic topical BID PRN Rash 04/30/20 08/12/23 History topical cream metoprolol tartrate 50 mg tablet 50 mg PO DAILY 06/01/22 08/12/23 History multivitamin 1 tablet PO DAILY 06/01/22 08/12/23 History hydrocodone 10 mg-acetaminophen 1 tablet PO Q8H PRN pain #60 tabs 06/22/22 08/12/23 Rx 325 mg tablet pen need
[2023-08-12] MEDS: PERFLUTREN LIPID MICROSPHERES 1.5 ML VIAL DILUTED TO 10 ML TOTAL VOLUME IV PUSH (14:45)
--- NOTE | 2023-08-12 15:05 | IVDEFINITY ---
Prior to administration of IV Definity the patient was educated on the risks and benefits of the imaging enhancing agent including potential adverse side effects. The patient verbalized understanding. Allergies were verified. No exclusion criteria were identified and at least one of the following inclusion criteria were met: 1) physician request, 2) patient technically difficult to image (per the [place] [employer]ocardi[employer] guidelines of two or more segments not discernable within the apical view), or 3) questionable left ventricular function. ?
[2023-08-12] MEDS: WARFARIN (*PBKC) 5 MG TABLET BY MOUTH (17:16)
[2023-08-12] MEDS: DOCUSATE SODIUM 100 MG CAPSULE PO (17:16)
[2023-08-12] MEDS: MAGNESIUM OXIDE 400 MG TABLET PO (17:17)
--- NOTE | 2023-08-12 18:15 | PC.NURSE ---
REPORT CALLED TO CITLALY PEREZ IN IMU. PT. IS TO TRANSFER TO IMU 210 TO CONTINUE CARE FOR SOTALOL LOADING. PT. AND FAMILY AWARE.
--- NOTE | 2023-08-12 18:45 | PC.NURSE ---
TRANSFERRED TO IMU 210 VIA ON MEDIA PROMOTER WITH ALL PERSONAL BELONGINGS. CHART AND MEDICATIONS GIVEN TO CHRIS BOUCHER ON ARRIVAL. FAMILY AT SIDE. VOICES NO C/O. NO DISTRESS NOTED. MONITOR REMAINS AFIB.
[2023-08-12 20:37] LABS: Glucose Point of Care 128 mg/dl (65-105)
--- NOTE | 2023-08-12 22:49 | ECG_ITS ---
Measurements Intervals [place] Rate: 67 P: CT: 0 QRS: -21 QRSD: 113 T: 134 QT: 453 QTc: 479 Interpretive Statements ATRIAL FIBRILLATION MODERATE INTRAVENTRICULAR CONDUCTION DELAY [105+ ms QRS DURATION, 80+ ms Q/S IN V1/V2, NO Q AND 60+ ms R IN I/aVL/V5/V6] MINIMAL VOLTAGE CRITERIA FOR LVH, CONSIDER NORMAL VARIANT [MEETS CRITERIA IN ONE OF: R(aVL), S(V1), R(V5), R(V5/V6)+S(V1)] ST DEVIATION AND MODERATE T-WAVE ABNORMALITY, CONSIDER LATERAL ISCHEMIA [-0.1+ mV T WAVE IN I/aVL/V5/V6] ABNORMAL ECG COMPARED TO ECG 08/12/2023 11:36:45 INTRAVENTRICULAR CONDUCTION DELAY NOW PRESENT Electronically Signed On 08-13-2023 8:31:27 CDT by Sameer Bailon M.D.
[2023-08-13] VITALS (21 sets, daily range): BP systolic 138–172; BP diastolic 68–94; PULSE 55–84; RESP 16–20; TEMP 36.2–36.5; O2SAT 95–99
[2023-08-13 05:22] LABS: INR 2.9; Prothrombin Time 33.1 Seconds (11.1-14.7)
--- NOTE | 2023-08-13 08:13 | PM.PNCARD ---
Progress Note: A&P Assessment and Plan (1) PAF (paroxysmal atrial fibrillation): Code(s): I48.0 - Paroxysmal atrial fibrillation Status: Acute Assessment and Plan: Symptomatic. Rate is normal. On Warfarin for mechanical AV. INR 2.9 today. Goal INR 2.5-3.0. Stopped Metoprolol. Started 08/12/23 Sotalol 80 mg every 12 hours. Check EKG 1-2 hours post each dose to check QT interval. Anticipate 1 more night stay. (2) Dyslipidemia: Code(s): E78.5 - Hyperlipidemia, unspecified Status: Acute Assessment and Plan: On Rosuvastatin. (3) HTN (hypertension): Qualifiers: Hypertension type: primary hypertension Qualified Code(s): I10 - Essential (primary) hypertension Code(s): I10 - Essential (primary) hypertension Status: Acute Assessment and Plan: High. Start Losartan 50 mg daily. Monitor BP. (4) H/O mechanical aortic valve replacement: Code(s): Z95.2 - Presence of prosthetic heart valve Status: Acute Assessment and Plan: 08/12/23 Echo: EF 60-65%, mild LVH, diastolic dysfunction (E/e' 24), severe biatrial enlargement, mechanical aortic valve, mild AI, mod MAC, mild MR. (5) CAD (coronary artery disease), autologous vein bypass graft: Qualifiers: Associated angina: without angina Qualified Code(s): I25.810 - Atherosclerosis of coronary artery bypass graft(s) without angina pectoris Code(s): I25.810 - Atherosclerosis of coronary artery bypass graft(s) without angina pectoris Status: Acute Assessment and Plan: Stable. (6) Diabetes: Qualifiers: Diabetes mellitus type: type 2 Diabetes mellitus usp insulin use: without usp use Diabetes mellitus complication status: with circulatory complication Diabetes mellitus complication detail: with other circulatory complications Qualified Code(s): E11.59 - Type 2 diabetes mellitus with other circulatory complications Code(s): E11.9 - Type 2 diabetes mellitus without complications Status: Acute Assessment and Plan: Continue home medication. (7) NANI (obstructive sleep apnea): Code(s): G47.33 - Obstructive sleep apnea (adult) (pediatric) Status: Acute Assessment and Plan: Diagnosed a few years ago but did not stay on CPAP due to not wearing it long enough due to claustrophobia and had device taken away. He is interested in trying it again. Will need to refer to sleep medicine specialist and reorder split night as outpatient. Subjective Date/time seen: 08/13/23 08:13 Interval history: Had trouble breathing last night to sleep, and requested CPAP which immediately allowed him to sleep. Denies chest pain. Exam Const: General: cooperative, healthy appearing, comfortable and obese Nutritional Appearance: obese Orientation/consciousness: oriented to person, oriented to place and oriented to time Resp: Auscultation: clear to auscultation bilaterally, no crackles, no rales, no rhonchi and no wheezes Cardio: Rate: regular rate Rhythm: abnormal rhythm Heart sounds: Clicking heart sound present (S2 click) and no murmurs Peripheral pulses: dorsalis pedis present Neuro: General: oriented to person, oriented to place and oriented to time Extrem: Right lower extremity: edema Left lower extremity: edema Other: Mild edema of both legs Objective Data Vital Signs Vital Signs: Vital Signs - 24 hr 08/12/23 09:24 08/12/23 12:00 08/12/23 09:30 Temperature 98.1 F Pulse Rate 76 65 Respiratory Rate 16 Blood Pressure 160/74 H Pulse Oximetry 97 Oxygen Delivery Room Air 08/12/23 12:00 08/12/23 16:00 08/12/23 16:30 Temperature 98.2 F Pulse Rate 63 Respiratory Rate 16 Blood Pressure 166/90 H Pulse Oximetry 98 Oxygen Delivery Room Air Room Air 08/12/23 16:00 08/12/23 10:00 08/12/23 12:00 Temperature Pulse Rate 70 68 64 Respiratory Rate Blood Pressure Pulse Oximetry Ox
[2023-08-13 08:17] LABS: Glucose Point of Care 106 mg/dl (65-105)
[2023-08-13] MEDS: MULTIVITAMINS THERAPEUTIC TAB (*BKC) 1 TABLET PO (08:58)
[2023-08-13] MEDS: metFORMIN HCL 500 MG TABLET 1000 MG PO (08:58)
[2023-08-13] MEDS: OMEGA 3 POLYUNSAT FATTY ACIDS 1 GM CAP PO (08:58)
[2023-08-13] MEDS: PANTOPRAZOLE 40 MG TABLET PO (08:58)
[2023-08-13] MEDS: SOTALOL HCL 80 MG TABLET PO ×2 (08:58→20:05)
[2023-08-13] MEDS: TAMSULOSIN HCL 0.4 MG CAPSULE PO (08:58)
[2023-08-13] MEDS: ROSUVASTATIN 10 MG TABLET PO (08:58)
[2023-08-13] MEDS: MAGNESIUM OXIDE 400 MG TABLET PO (08:59)
[2023-08-13] MEDS: ASPIRIN 81 MG CHEWABLE TABLET PO (08:59)
[2023-08-13] MEDS: ISOSORBIDE MONONITRATE 30 MG TAB.ER.24H PO (08:59)
[2023-08-13] MEDS: FINASTERIDE 5 MG TABLET PO (08:59)
[2023-08-13] MEDS: DOCUSATE SODIUM 100 MG CAPSULE PO ×2 (08:59→16:37)
[2023-08-13] MEDS: ALBUTEROL SULFATE NEB 2.5 MG/3 ML INH INHALATION ×3 (10:15→21:24)
--- NOTE | 2023-08-13 11:00 | ECG_ITS ---
Measurements Intervals [place] Rate: 72 P: [place]: 0 QRS: -24 QRSD: 114 T: 133 QT: 417 QTc: 458 Interpretive Statements ATRIAL FIBRILLATION MODERATE INTRAVENTRICULAR CONDUCTION DELAY [105+ ms QRS DURATION, 80+ ms Q/S IN V1/V2, NO Q AND 60+ ms R IN I/aVL/V5/V6] MODERATE VOLTAGE CRITERIA FOR LVH, CONSIDER NORMAL VARIANT [MEETS CRITERIA IN ONE OF: R(aVL), S(V1), R(V5), R(V5/V6)+S(V1)] ST DEVIATION AND MODERATE T-WAVE ABNORMALITY, CONSIDER LATERAL ISCHEMIA [-0.1+ mV T WAVE IN I/aVL/V5/V6] ABNORMAL ECG COMPARED TO ECG 08/12/2023 23:01:05 NO SIGNIFICANT CHANGES Electronically Signed On 08-13-2023 12:31:31 CDT by Sameer Bailon M.D.
[2023-08-13 12:17] LABS: Glucose Point of Care 85 mg/dl (65-105)
[2023-08-13] MEDS: VALSARTAN 80 MG TABLET 160 MG PO ×2 (12:28→20:05)
[2023-08-13 16:39] LABS: Glucose Point of Care 110 mg/dl (65-105)
--- NOTE | 2023-08-13 21:51 | ECG_ITS ---
Measurements Intervals [place] Rate: 57 P: [place]: 0 QRS: -22 QRSD: 111 T: 138 QT: 424 QTc: 416 Interpretive Statements ATRIAL FIBRILLATION WITH SLOW VENTRICULAR RESPONSE MODERATE INTRAVENTRICULAR CONDUCTION DELAY [105+ ms QRS DURATION, 80+ ms Q/S IN V1/V2, NO Q AND 60+ ms R IN I/aVL/V5/V6] MINIMAL VOLTAGE CRITERIA FOR LVH, CONSIDER NORMAL VARIANT [MEETS CRITERIA IN ONE OF: R(aVL), S(V1), R(V5), R(V5/V6)+S(V1)] ST DEVIATION AND MODERATE T-WAVE ABNORMALITY, CONSIDER LATERAL ISCHEMIA [-0.1+ mV T WAVE IN I/aVL/V5/V6] ABNORMAL ECG COMPARED TO ECG 08/13/2023 11:07:40 NO SIGNIFICANT CHANGES Electronically Signed On 08-14-2023 8:51:02 CDT by Sameer Bailon M.D.
[2023-08-14] VITALS (14 sets, daily range): BP systolic 151–168; BP diastolic 81–96; PULSE 55–80; RESP 16–20; TEMP 36.1–37.3; O2SAT 96–100
[2023-08-14 01:32] LABS: Glucose Point of Care 104 mg/dl (65-105)
[2023-08-14] MEDS: ALBUTEROL SULFATE NEB 2.5 MG/3 ML INH INHALATION ×2 (02:32→08:38)
[2023-08-14 05:08] LABS: Prothrombin Time 33.5 Seconds (11.1-14.7)
[2023-08-14 05:16] LABS: Anion Gap 7 mmol/L (8-16); Blood Urea Nitrogen 14 mg/dL (9-20); Carbon Dioxide 28 mmol/L (22-30); Chloride 106 mmol/L (98-107); Estimated CRCL calculation 103 ml/min; Estimated Glomerular Filt Rate > 60; Glucose 112 mg/dL (65-110); Magnesium 1.9 mg/dL (1.6-2.3); Potassium 4.1 mmol/L (3.4-5.0); Sodium 141 mmol/L (137-145)
[2023-08-14 07:45] LABS: Glucose Point of Care 109 mg/dl (65-105)
--- NOTE | 2023-08-14 08:15 | PM.DS ---
DS: Admitting Diagnosis Discharge Date 08/14/23 Admitting Diagnosis Symptomatic atrial fibrillation DS: Discharge Diagnosis Discharge Diagnosis Plan Symptomatic atrial fibrillation DS: Summary Hospital Course Reason for hospitalization: Sotalol loading for PAF Hospital Course: 73 yr old man who is my regular cardiology patient and a patient of Dr. Nova? presents as a direct admit for Sotalol loading for symptomatic atrial fibrillation.? He has a history of CAD, CABG, mechanical aortic valve, DM, hypertension, dyslipidemia, PAF, NANI years ago but did not tolerate CPAP due to claustrophobia. He tolerated Sotalol 80 mg every 12 hours and EKG were checked 2 hours post each dose with normal QTc interval. This morning reports he is feeling better and can breathe much better since using CPAP for sleep here in hospital and he is tolerating it. He has He has palpitations, dizziness, sob when resting only for last few weeks when diagnosed with new onset atrial fibrillation. Reports he is limited at walking in from parking lot chronically due to knee pains first then FELICIANO. Denies chest pain, sob, orthopnea, PND, edema, dizziness, palpitations. Time spent discussing smoking cessation with patient: more than 10 minutes Status at Discharge Cognitive/behavioral status at discharge: Normal and at baseline Functional status at discharge: independent ambulation Overall status at discharge: patient is back to baseline Time Spent with Patient Time attestation: Total time spent providing and/or coordinating discharge services: Time spent: Less than 30 minutes Exam Const: General: cooperative, healthy appearing, comfortable and obese Nutritional Appearance: obese Orientation/consciousness: oriented to person, oriented to place and oriented to time Resp: Auscultation: clear to auscultation bilaterally, no crackles, no rales, no rhonchi and no wheezes Cardio: Rate: regular rate Rhythm: abnormal rhythm Heart sounds: Clicking heart sound present (S2 click) and no murmurs Peripheral pulses: dorsalis pedis present Neuro: General: oriented to person, oriented to place and oriented to time Extrem: Right lower extremity: edema Left lower extremity: edema Other: Mild edema of both legs DS: Data Data Completed and Pending Labs on day of discharge: Labs from last 24 hours 08/14/23 08/14/23 08/13/23 07:24 04:20 19:56 PT 33.5 H INR 3.0 Sodium 141 Potassium 4.1 Chloride 106 Carbon Dioxide 28 Anion Gap 7 L BUN 14 Creatinine 0.70 Estim Creat Clear Calc 103 Estimated GFR > 60 Glucose 112 H POC Capillary Glucose 109 H 104 Calcium 9.0 Magnesium 1.9 08/13/23 08/13/23 08/13/23 15:43 11:53 07:36 PT INR Sodium Potassium Chloride Carbon Dioxide Anion Gap BUN Creatinine Estim Creat Clear Calc Estimated GFR Glucose POC Capillary Glucose 110 H 85 106 H Calcium Magnesium Discharge Plan Discharge Attending physician on discharge: Enrique Vela Discharging Clinician: Enrique Vela Patient Disposition: Home, Self-Care Activity: as tolerated Diet: heart healthy Patient Instructions: Antibiotic Form, Warfarin (By mouth), Sotalol (By mouth), Heart Failure (DC), A-fib (Atrial Fibrillation) (GEN) Stand Alone Forms: General Discharge Information Follow-up/Referrals: Enrique Vela, [Physician] - (Already has appointment for 2 weeks) Discharge Medications: New sotalol 80 mg Tablet 80 mg PO Q12HR Qty: 180 2RF valsartan [Diovan] 80 mg Tablet 160 mg PO Q12HR Qty: 180 2RF albuterol sulfate 2.5 mg /3 mL (0.083 %) Solution For Nebulization 2.5 mg inhalation Q6HRT 30 Days Qty: 360 0RF Continued albuterol sulfate 90 mcg/actuation HFA aerosol inhaler 1 puff inhalation Q4H PRN (Reason: shortness of breath or wheezing) Qty: 8.5 1RF Ozempic 2 mg/dose (8 mg/3 mL) pen injector 2 mg subcut WEEKLY Qt
[2023-08-14] MEDS: VALSARTAN 80 MG TABLET 160 MG PO (08:52)
[2023-08-14] MEDS: SOTALOL HCL 80 MG TABLET PO (08:52)
[2023-08-14] MEDS: TAMSULOSIN HCL 0.4 MG CAPSULE PO (08:52)
[2023-08-14] MEDS: ROSUVASTATIN 10 MG TABLET PO (08:52)
[2023-08-14] MEDS: MULTIVITAMINS THERAPEUTIC TAB (*BKC) 1 TABLET PO (08:53)
[2023-08-14] MEDS: DOCUSATE SODIUM 100 MG CAPSULE PO (08:53)
[2023-08-14] MEDS: PANTOPRAZOLE 40 MG TABLET PO (08:53)
[2023-08-14] MEDS: ISOSORBIDE MONONITRATE 30 MG TAB.ER.24H PO (08:53)
[2023-08-14] MEDS: ASPIRIN 81 MG CHEWABLE TABLET PO (08:53)
[2023-08-14] MEDS: MAGNESIUM OXIDE 400 MG TABLET PO (08:53)
[2023-08-14] MEDS: metFORMIN HCL 500 MG TABLET 1000 MG PO (08:53)
[2023-08-14] MEDS: OMEGA 3 POLYUNSAT FATTY ACIDS 1 GM CAP PO (08:53)
[2023-08-14] MEDS: FINASTERIDE 5 MG TABLET PO (08:53)
--- NOTE | 2023-08-14 11:00 | ECG_ITS ---
Measurements Intervals [place] Rate: 56 P: [place]: 0 QRS: -23 QRSD: 112 T: 138 QT: 438 QTc: 424 Interpretive Statements ATRIAL FIBRILLATION WITH SLOW VENTRICULAR RESPONSE MODERATE INTRAVENTRICULAR CONDUCTION DELAY [105+ ms QRS DURATION, 80+ ms Q/S IN V1/V2, NO Q AND 60+ ms R IN I/aVL/V5/V6] VOLTAGE CRITERIA FOR LVH [MEETS CRITERIA IN ONE OF: R(aVL), S(V1), R(V5), R(V5/V6)+S(V1)] ST DEVIATION AND MODERATE T-WAVE ABNORMALITY, CONSIDER LATERAL ISCHEMIA [-0.1+ mV T WAVE IN I/aVL/V5/V6] ABNORMAL ECG COMPARED TO ECG 08/13/2023 21:56:15 NO SIGNIFICANT CHANGES Electronically Signed On 08-15-2023 9:22:55 CDT by Sameer Bailon M.D.
[2023-08-14 11:53] LABS: Glucose Point of Care 87 mg/dl (65-105)
== END 2023-08-14 12:47 | disposition home or self-care (01) | DRG 310 ==
LOC: ANHCPC 16:54 → ANHIMU 19:01
PROVIDERS: Admitting Provider Internal Medicine Cardiovascular Disease; PCP Internal Medicine; Visit Provider Internal Medicine Cardiovascular Disease
DX: I48.0 Paroxysmal atrial fibrillation (principal); I25.10 Atherosclerotic heart disease of native coronary artery without angina pectoris; I10 Essential (primary) hypertension; E11.9 Type 2 diabetes mellitus without complications; E78.5 Hyperlipidemia, unspecified; E66.01 Morbid (severe) obesity due to excess calories; G47.33 Obstructive sleep apnea (adult) (pediatric); F41.9 Anxiety disorder, unspecified; Z96.652 Presence of left artificial knee joint; I25.2 Old myocardial infarction; Z23 Encounter for immunization; Z68.36 Body mass index [BMI] 36.0-36.9, adult; Z98.84 Bariatric surgery status; Z79.01 Long term (current) use of anticoagulants; Z79.82 Long term (current) use of aspirin; Z95.1 Presence of aortocoronary bypass graft; Z95.2 Presence of prosthetic heart valve
CPT/HCPCS: 36415; 80048; 80053; 82948; 83735; 84443; 85025; 85610; 90471; 90694; 93005; 94640; 94660; A9270; C8929; G0008; Q9957

== ENCOUNTER 2023-09-01 08:00 | Outpatient (RCR) | payer MEDICARE, SELFPAY ==
[2023-06-07 18:42] LABS: INR 3.8
[2023-06-13 13:42] LABS: INR 2.6; Prothrombin Time 30.4 Seconds (11.1-14.7)
[2023-06-20 13:14] LABS: INR 3.7; Prothrombin Time 39.8 Seconds (11.1-14.7)
[2023-06-27 11:49] LABS: INR 3.7; Prothrombin Time 40.2 Seconds (11.1-14.7)
[2023-07-04 13:53] LABS: INR 2.3; Prothrombin Time 26.9 Seconds (11.1-14.7)
[2023-07-18 19:23] LABS: INR 1.9
[2023-07-26 16:51] LABS: INR 3.3; Prothrombin Time 36.3 Seconds (11.1-14.7)
[2023-08-08 13:29] LABS: INR 2.1
[2023-08-22 18:58] LABS: INR 2.3; Prothrombin Time 27.2 Seconds (11.1-14.7)
[2023-09-01 19:33] LABS: INR 2.6; Prothrombin Time 29.4 Seconds (11.1-14.7)
== END 2023-09-05 23:59 | disposition home or self-care (01) ==
LOC: ANHGOSHLAB 08:00
PROVIDERS: PCP Internal Medicine; Visit Provider Internal Medicine Cardiovascular Disease
DX: Z51.81 Encounter for therapeutic drug level monitoring (principal); Z79.01 Long term (current) use of anticoagulants
CPT/HCPCS: 36415; 85610

== ENCOUNTER 2023-09-20 08:47 | Outpatient (CLI) | payer MEDICARE, SELFPAY ==
--- NOTE | 2023-10-01 22:55 | WPDHOMESLEEP ---
Sleep Study - Home Unattended Date of Study: 09/20/23 Ordering Provider: JESUS Flores Interpreting Provider: Katy Russell MD Home Sleep Study Type: Apnea Link Air Height: 1.78 m Weight: 108.862 kg Body Mass Index: 34.4 Neck Circumference (inches): 18.5 [place]: 3 Reason for Sleep Study Poor sleep, cannot sleep more than 3 hours a night since March after developing atrial fibrillation * 01/22/2016- split night sleep study; Apnea-hypopnea index 48.7, minimum saturation 80%, optimal pressure CPAP 11 cm; BMI was 45.2, now 34.4. * 08/12/2023 - echo = Left ventricular systolic function is normal, estimated at 60-65%. There is mild concentric increased left ventricular wall thickness. The left ventricular diastolic function is abnormal. Sleep History Reggie Nevarez is a 73-year-old man with atrial fibrillation since March. He finds it hard to breathe at night. He Frequently awakens from sleep feeling short of breath. He never wakes at night with heartburn, belching or coughing.??He occasionally snores, never snores loudly enough that others complain. He occasionally has trouble sleeping when he has a cold. He rarely wakes up gasping for breath during the night. He frequently has breathing problems at night. He never sweats excessively at night. He constantly notices his heart pounding or beating irregularly during the night. He rarely falls asleep during the day. He rarely falls asleep involuntarily, never falls asleep while driving. He never experiences loss of muscle tone with strong emotion. He never has daytime difficulty at work due to excessive sleepiness. He never feels paralyzed on waking or falling asleep. He never experiences vivid dreams upon waking or falling asleep. He never feels afraid of going to sleep. He never has nightmares. He never recalls his dreams. He occasionally has thoughts racing through his mind. He occasionally feels sad or depressed. He occasionally feels anxiety. He never notices parts of his body jerk. He never kicks during the night. He never feels crawling or aching feelings in his legs. He frequently feels leg pain at night. He never has morning jaw pain, never grinds his teeth at night. He occasionally feels bothered by pain during the day, never awakened by pain during the night. He occasional wakes up feeling stiff in the morning, and he rarely wakes feeling sore or achy. He rarely awakens with pain in his neck, spine, or joints. Normal bedtime is 8:00 p.m., falling asleep within an hour. He wakes once at night. while awake at night, he frequently goes outside for fresh air. He typically gets 3 hours of sleep per night. His wake up time is 5:00 a.m.. He takes no naps in the day. he is drowsy for 3 hours after waking. He feels better in the afternoon compared to other times of day. Habits:??Tobacco: Never Caffeine: 2 servings of tea daily. Alcohol: none Recreational substances: none PMFSH Past Medical History Medical History Allergies Anemia Anxiety Arthritis CAD (coronary artery disease) Cellulitis CHF (congestive heart failure) Diabetes Dyslipidemia GERD (gastroesophageal reflux disease) Heart attack Heart disease HTN (hypertension) Morbid obesity due to excess calories PAF (paroxysmal atrial fibrillation) Skin cancer Surgical History Surgical History History of bariatric surgery History of left knee replacement History of open heart surgery 1995 Open heart Mechanical Valve Family History Family History Father Diabetes mellitus Heart disease Hypertension Mother Heart disease Social History Social History Smoking status: Never smoker Alcohol intake: never Substance use: never Lack of Transportation: No Lack of Norma
[2023-10-01 23:16] VITALS: BMI 34.4
== END 2023-09-21 08:00 | disposition home or self-care (01) ==
LOC: ANHCSM 08:47
PROVIDERS: PCP Internal Medicine; Visit Provider Physician Assistant
DX: G47.33 Obstructive sleep apnea (adult) (pediatric) (principal)
CPT/HCPCS: 95806

== ENCOUNTER 2023-10-03 08:37 | Outpatient (RCR) | payer MEDICARE, SELFPAY ==
[2023-10-03 12:32] LABS: INR 1.6; Prothrombin Time 20.3 Seconds (11.1-14.7)
== END 2024-01-01 23:59 | disposition home or self-care (01) ==
LOC: ANHGOSHLAB 08:37
PROVIDERS: PCP Internal Medicine; Visit Provider Internal Medicine Cardiovascular Disease
DX: Z95.2 Presence of prosthetic heart valve (principal)
CPT/HCPCS: 36415; 85610

== ENCOUNTER → 2023-11-29 08:31 | Outpatient (CLI) | payer MEDICARE, SELFPAY ==
--- NOTE | ~2023-11-29 | XR_ITS ---
Left Shoulder Technique: AP and axillary views were obtained. Clinical History: Osteoarthritis Findings: No fracture or dislocation is seen. Osseous alignment is anatomic. The glenohumeral and acr omioclavicular joint spaces are preserved. Soft tissues are unremarkable. Impression: Unremarkable left shoulder radiographs. Reviewed, dictated and finalized at [facility]. ERMAKER CONTINUOUS CHURN Impression: Unremarkable left shoulder radiographs.
--- NOTE | ~2023-11-29 | XR_ITS ---
Right Shoulder Technique: AP and axillary views were obtained. Clinical History: Osteoporosis arthritis Findings: No fracture or dislocation is seen. Osseous alignment is anatomic. There is mild to moderat e degenerative change of the glenohumeral joint. AC joint is intact. Soft tissues are unremarkable. Impression: Mild to moderate glenohumeral joint degenerative change. Reviewed, dictated and finalized at location . MECHANIC Impression: Mild to moderate glenohumeral joint degenerative change.
--- NOTE | ~2023-11-29 | XR_ITS ---
Lumbosacral Spine: AP and lateral views with neutral, flexion, extension positioning Clinical History: Pain Findings: The normal lordotic curve is maintained. No fracture identified. There is 4 mm retrolisthes is of L2 over L3. There is moderate to advanced facet arthropathy throughout the lumbar spine. Interv ertebral disc spaces are relatively well-preserved. The sacroiliac joints are normally outlined. Impression: 4 mm retrolisthesis of L2 over L3. No instability evident on flexion or extension. Moderate to advanced facet arthropathy throughout the lumbar spine. Reviewed, dictated and finalized at location M. [employer] SUPERVISOR Impression: 4 mm retrolisthesis of L2 over L3. No instability evident on flexion or extensi on. Moderate to advanced facet arthropathy throughout the lumbar spine.
== END ==
PROVIDERS: PCP Nurse Practitioner Family; Visit Provider Nurse Practitioner Family
DX: M43.16 Spondylolisthesis, lumbar region (principal); M47.896 Other spondylosis, lumbar region; M19.011 Primary osteoarthritis, right shoulder
CPT/HCPCS: 72110; 73030

== ENCOUNTER 2024-03-16 13:01 | Outpatient (CLI) | payer MEDICARE, SELFPAY ==
--- NOTE | ~2024-03-16 | XR_ITS ---
EXAMINATION: [id number], XR_[id number] DATE: 03/16/2024 13:56 INDICATION: Bilateral knee pain TECHNIQUE: 1. Weight bearing anteroposterior and lateral views of the left knee were obtained. 2. Weight bearing anteroposterior and lateral views of the right knee were obtained. COMPARISON: None. FINDINGS: Left total knee arthroplasty with patellar resurfacing which appears well seated in near-anatomic ali gnment. No periprosthetic lucency to suggest loosening or infection. Normal alignment at the right kn ee. No fractures. Tricompartmental osteoarthritis at the right knee, severe in the medial compartment , mild to moderate at the patellofemoral compartment and mild at the lateral compartment. Soft tissue s are unremarkable with no joint effusion at either knee. IMPRESSION: 1. Severe medial compartment predominant tricompartmental osteoarthritis at the right knee. 2. Expected appearance of a left total knee arthroplasty. Reviewed, dictated and finalized at location A. IMPRESSION: 1. Severe medial compartment predominant tricompartmental osteoarthritis at the right knee. 2. Expected appearance of a left total knee arthroplasty.
--- NOTE | ~2024-03-16 | XR_ITS ---
XR cervical spine 4-5V DATE: 03/16/2024 13:56 INDICATION: Cervical radiculopathy. Shoulder pain. TECHNIQUE: Standing AP, open-mouth, odontoid, lateral and swimmer views COMPARISON: None FINDINGS: C1 and C2 are normally aligned and the odontoid process is intact. No fracture or dislocati on or locked facet or prevertebral soft tissue swelling. There is approximately 2.5 mm anterolisthesis at C4-5 and approximately 1.4 mm anterolisthesis at C5- 6. Mild loss of interspace height at C5-6. Moderately severe degenerative disc disease at C6-7. Status post sternotomy. Left dual lead pacemaker device. IMPRESSION: Moderate cervical spondylosis Reviewed, dictated and finalized at location A.
== END 2024-03-16 13:02 ==
PROVIDERS: PCP Pain Medicine Interventional Pain Medicine; Visit Provider Pain Medicine Interventional Pain Medicine
DX: M43.02 Spondylolysis, cervical region (principal); M17.11 Unilateral primary osteoarthritis, right knee; M25.519 Pain in unspecified shoulder; M54.17 Radiculopathy, lumbosacral region; Z96.652 Presence of left artificial knee joint
CPT/HCPCS: 72050; 73560

== ENCOUNTER 2024-12-17 09:36 | Outpatient (CLI) | payer MEDICARE, SELFPAY ==
--- NOTE | ~2024-12-17 | XR_ITS ---
EXAMINATION: XR hand BI arthritis min 3V DATE: 12/17/2024 10:09 INDICATION: Pain in joints of unspecified hand. TECHNIQUE: 4 views of right hand and 4 views of left hand on a total of 7 radiographs were obtained. COMPARISON: Left hand radiographs 03/14/2020 FINDINGS: RIGHT HAND: Alignment is normal. No fracture. There is mild osteoarthritis of first carpometacarpal j oint and most of the metacarpophalangeal joints and interphalangeal joints. There is moderate osteoar thritis of first interphalangeal joint and third, fourth, and fifth distal interphalangeal joints. LEFT HAND: Alignment is normal. No acute fracture. 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 There is severe osteoarthritis of first carpometacarpal joint . There is mild osteoarthritis of first metacarpophalangeal joint and some of the interphalangeal erasmo nts. There is moderate osteoarthritis of second, fourth, and fifth distal interphalangeal joints. The re are surgical clips in the forearm. IMPRESSION: 1. Polyarticular osteoarthritis. Reviewed, dictated and finalized at location A. CRIPTION BENEFIT SPECIALIST
== END 2024-12-17 09:37 | disposition home or self-care (01) ==
DX: M19.041 Primary osteoarthritis, right hand (principal); M19.042 Primary osteoarthritis, left hand
CPT/HCPCS: 73130

== ENCOUNTER 2025-01-03 13:19 | Outpatient (CLI) | payer MEDICARE, SELFPAY | END 2025-01-03 13:20 | disposition home or self-care (01) | LOC: MICIMG 13:21 | PROVIDERS: Visit Provider Specialist | DX: N18.2 Chronic kidney disease, stage 2 (mild) (principal) | CPT/HCPCS: 76770 ==

== ENCOUNTER 2025-01-10 07:47 | Outpatient (CLI) | payer MEDICARE, SELFPAY ==
--- OUTSIDE RECORDS SUMMARY | 2025-01-10 08:11 | XMS_ITS | Clinical Summary ---
Author Organization [facility] Address [address] [facility] [place] [address] Care Team Providers Care Filtering Machine Tender Name Role Phone Bennie Nova MD Primary Care Provider Alison jeronimo Source Comments [facility],non-owned Affiliates and Associated Physician Practices is amultiple site organization consisting of ambulatory clinics and hospital sitesin [place], [place], [place] and [place]. This disclosure is being madepursuant to the Care Everywhere program and may not contain all information available regarding this patient. Last updated 18.[facility] Novavax Allergies No known active allergies Medications * Be aware that medications may not be up to date on this document. Alwaysverify current medications with the patient. Medication Sig Dispensed Refills Start Date End Date Status clopidogrel (PLAVIX) 75 MG tablet Take 75 mg by mouth Two times a week. Active warfarin (COUMADIN) 5 MG tablet Take 5 mg by mouth once daily. 1.5- 2 tabs Active pioglitazone-metformin (ACTOPLUS MET) 15-850 MG tablet Take 1 Tab by mouth 2 times daily with morning and evening meal. Active torsemide (DEMADEX) 20 MG tablet Take 40 mg by mouth 2 times daily. Active tamsulosin CR 24hr (FLOMAX) 0.4 MG capsule Take 0.4 mg by mouth at bedtime. Take 30 minutes after a meal at the same time each day. Active traMADol (ULTRAM) 50 MG tablet Take 100 mg by mouth 2 times daily. Active metoprolol succinate XL 24hr (TOPROL XL) 50 MG tablet Take 50 mg by mouth 2 times daily. Active aspirin 81 MG tablet Take 81 mg by mouth once daily. Active valsartan (DIOVAN) 80 MG tablet Take 80 mg by mouth once daily. Active sitaGLIPtin (JANUVIA) 100 MG tablet Take 100 mg by mouth once daily. Active atorvastatin (LIPITOR) 20 MG tablet Take 20 mg by mouth at bedtime. Active ALPRAZolam (XANAX) 1 MG tablet Take 1 mg by mouth 3 times daily as needed. Active hydrocodone-acetaminop hen (LORTAB) 10-500 MG tablet Take 1 Tab by mouth every 4 hours as needed. Active Social History Tobacco Use Types Packs/Day Years Used Date Smoking Tobacco: Never Alcohol Use Standard Drinks/Week Comments Not Asked 0 (1 standard drink = 0.6 oz pur e alcohol) Sex and Gender Information Value Date Recorded Sex Assigned at Not on file Gender Identity Not on file Sexual Orientation Not on file Last Filed Vital Signs Vital Sign Reading Time Taken Comments Blood Pressure 182/85 10/09/2012 3:10 PM VENDING TECHNICIAN Pulse 70 10/09/2012 3:10 PM VENDING TECHNICIAN Temperature 36.7 C (98.1 F) 12/29/2010 11:35 AM VENDING TECHNICIAN Respiratory Rate 16 12/29/2010 11:35 AM VENDING TECHNICIAN Oxygen Saturation - - Inhaled Oxygen Concentration - - Weight 173.3 kg (382 lb) 10/09/2012 3:10 PM VENDING TECHNICIAN Height 177.8 cm (5' 10 ) 10/09/2012 3:10 PM VENDING TECHNICIAN Body Mass Index 54.81 10/09/2012 3:10 PM VENDING TECHNICIAN Plan of Treatment Health Maintenance Due Date Last Done Comments COLOGUARD (AGES 45-75) - COL ON CA SCREENING 1950 COLON MONITORING 1950 COLONOSCOPY - COLON CA SCREENING 1950 CT COLONOGRAPHY - COLON CA SCREENING 1950 Colorectal Cancer Screening 1950 FIT - COLON CA SCREENING 1950 FLEX SIG - COLON CA SCREENING 1950 MEDICARE AWV 12 MONTHS 1950 HEPATITIS C SCREENING 01/25/1968 DTAP/TDAP/TD VACCINES (1 - Tdap) 1969 PNEUMOCOCCAL VACCINE 50+ (1 of 1 - PCV) 01/30/2000 ZOSTER VACCINE (1 of 2) 01/30/2000 Respiratory Syncytial Virus (RSV) Vaccine Pt: or over 60 yrs (1 - Risk 60-74 years 1-dose series) 2010 COVID-19 VACCINE (2023-2 5 season) 2024 INFLUENZA VACCINE (#1) 2024 DEPRESSION SCREENING 11/07/2024 HEPATITIS B VACCINE Aged Out No longe r eligible based on patient's age to complete this topic HIB VACCINE Aged Out No longer eligi ble based on patient's age to complete this topic HPV VACCINE Aged Out No longer eligi ble based on patient's age to complete this topic MENINGOCOCCAL (Group B) VACCINE Aged Out No longer eligible based on patient's age to complete this topic MENINGOCOCCAL VACCINE Aged Out No francisco rani eligible based on patient's age to complete this topic Care Teams Filtering Machine Tender Relationship Specialty Start Date End Date Bennie Nova MD PCP - General Internal Medicine 10/10/12
--- OUTSIDE RECORDS SUMMARY | 2025-01-10 08:11 | XMS_ITS | Encounter Summary ---
Author Organization [facility] Address [address] [place] [address] Care Team Providers Care Hydrotechnical Specialist Name Role Phone Bennie Nova MD Primary Care Provider Alison ilfrancisco javier Encounter Details Date Type Department Care Team (Late st Contact Info) Description 04/13/2024 Lab Requisition [facility] - DermPath Lab [address] [place] [address] Lou Clark PA-C [address] [place] [address] Neoplasm of uncertain behavior of skin Social History Tobacco Use Types Packs/Day Years Used Date Smoking Tobacco: Never Alcohol Use Standard Drinks/Week Comments Not Asked 0 (1 standard drink = 0.6 oz pur e alcohol) Sex and Gender Information Value Date Recorded Sex Assigned at Not on file Gender Identity Not on file Sexual Orientation Not on file documented as of this encounter Plan of Treatment Not on file documented as of this encounter Procedures Procedure Name Priority Date/Time Associated Diagnosis Comments DERMATOPATHOLOGY Routine 04/13/2024 12:0 0 AM CDT Neoplasm of uncertain behavior of skin documented in this encounter Results * DERMATOPATHOLOGY (04/13/2024 12:00 AM CDT) Case Report Dermatopathology Report Case: [id number] Authorizing Provider: Lou Clark, Collected: 04/13/2024 12:00 AM HELEN Ordering Location: [facility] - Received: 04/16/2024 11:01 AM DermPath Lab Pathologist: Kassidy Mann MD Specimens: A) - Skin, right neck B) - Skin, left forehead 1:29 PM CDT DERMATOPATHOLOGY LABORATORY Final Diagnosis Specimen A. 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 The specimen consists of a shave biopsy measuring 6x4x2 mm. Jar 0. Specimen B: Received is one formalin filled container labeled with the patient's name and designated left forehead. The specimen consists of a shave biopsy measuring 8x7x2,7x5x2 mm. Jar 0. 1:29 PM CDT DERMATOPATHOLOGY LABORATORY Microscopic Description Specimen A. SKIN, right neck: The epidermis shows parakeratosis, full thickness disorderly maturation of keratinocytes, mitoses at different levels, and dyskeratotic cells. Specimen B. SKIN, left forehead: The epidermis shows parakeratosis, full thickness disorderly maturation of keratinocytes, mitoses at different levels, and dyskeratotic cells. 1:29 PM CDT DERMATOPATHOLOGY LABORATORY Disclaimer An external and internal positive and negative controls are appropriate for the histochemical, immunohistochemical and immunofluorescence stain(s) in this case (if any), except where stated explicitly. The performance characteristics of the stain(s) cited in this report were developed and its performance characteristic determined by the Dermatopathology Laboratory at [facility], directed by Dr. Luba Garcia. These tests need not be, and therefore are not, approved by the [place] Food and Drug Administration. The tests are used for clinical purposes. Billing Codes Specimen Charges Stain Charges 17882 98731 1 1 4 1:29 PM CDT DERMATOPATHOLOGY LABORATORY Embedded Images 1:29 PM CDT DERMATOPATHOLOGY LABORATORY Pathology/Cytology TISSUE SPECIMEN FROM SKIN / Unknown 04/13/2024 04/16/2024 11:01 AM CDT Miscellaneous samples (specimen) TISSUE SPECIMEN FROM SKIN / Unknown 04/13/2024 04/16/2024 11:01 AM CDT Lou Clark PA-C LAB - PATHOL OGY/CYTOLOGY ORDERABLES DERMATOPATHOLOGY LABORATORY [facility] - Department of Dermatology [facility] Specialized Medicine [address] [place] [address], [address] [phone] documented in this encounter Visit Diagnoses Diagnosis Neoplasm of uncertain behavior of skin documented in this encounter Care Teams Hydrotechnical Specialist Relationship Specialty Start Date End Date Bennie Nova MD PCP - General Internal Medicine 10/10/12 documented as of this encounter
--- OUTSIDE RECORDS SUMMARY | 2025-01-10 08:11 | XMS_ITS | Patient Health Summary ---
Author Organization [facility] Address [address] [place] [address] Care Team Providers Care Planer Offbearer Name Role Phone Bennie Nova MD Primary Care Provider Alison jeronimo Note from [facility],non-owned Affiliates and Associated Physician Practices is amultiple site organization consisting of ambulatory clinics and hospital sitesin [place], [place], [place] and [place]. This disclosure is being madepursuant to the Care Everywhere program and may not contain all information available regarding this patient. Last updated 18.[facility] Allergies No known active allergies Medications * Be aware that medications may not be up to date on this document. Alwaysverify current medications with the patient. * clopidogrel (PLAVIX) 75 MG tablet Take 75 mg by mouth Two times a week. * warfarin (COUMADIN) 5 MG tablet Take 5 mg by mouth once daily. 1.5- 2 tabs * pioglitazone-metformin (ACTOPLUS MET) 15-850 MG tablet Take 1 Tab by mouth 2 times daily with morning and evening meal. * torsemide (DEMADEX) 20 MG tablet Take 40 mg by mouth 2 times daily. * tamsulosin CR 24hr (FLOMAX) 0.4 MG capsule Take 0.4 mg by mouth at bedtime. Take 30 minutes after a meal at the same time each day. * traMADol (ULTRAM) 50 MG tablet Take 100 mg by mouth 2 times daily. * metoprolol succinate XL 24hr (TOPROL XL) 50 MG tablet Take 50 mg by mouth 2 times daily. * aspirin 81 MG tablet Take 81 mg by mouth once daily. * valsartan (DIOVAN) 80 MG tablet Take 80 mg by mouth once daily. * sitaGLIPtin (JANUVIA) 100 MG tablet Take 100 mg by mouth once daily. * atorvastatin (LIPITOR) 20 MG tablet Take 20 mg by mouth at bedtime. * ALPRAZolam (XANAX) 1 MG tablet Take 1 mg by mouth 3 times daily as needed. * hydrocodone-acetaminophen (LORTAB) 10-500 MG tablet Take 1 Tab by mouth every 4 hours as needed. Social History Tobacco Use Types Packs/Day Years [...] Comments Blood Pressure 182/85 10/09/2012 3:10 PM COLLAR TRIMMER Pulse 70 10/09/2012 3:10 PM COLLAR TRIMMER Temperature 36.7 C (98.1 F) 12/29/2010 11:35 AM COLLAR TRIMMER Respiratory Rate 16 12/29/2010 11:35 AM COLLAR TRIMMER Oxygen Saturation - - Inhaled Oxygen Concentration - - Weight 173.3 kg (382 lb) 10/09/2012 3:10 PM COLLAR TRIMMER Height 177.8 cm (5' 10 ) 10/09/2012 3:10 PM COLLAR TRIMMER Body Mass Index 54.81 10/09/2012 3:10 PM COLLAR TRIMMER Procedures * DERMATOPATHOLOGY(Performed 04/13/2024) Performed for Neoplasm of uncertain behavior of skin * DERMATOPATHOLOGY(Performed 11/20/2019) Results * DERMATOPATHOLOGY (04/13/2024 12:00 AM CDT) Only the most recent of2 resultswithin the time period is included. Case Report Dermatopathology Report Case: [id number] Authorizing Provider: Lou Clark, Collected: 04/13/2024 12:00 AM HELEN Ordering Location: [facility] - Received: 04/16/2024 11:01 AM DermPath Lab Pathologist: Kassidy aMnn MD Specimens: A) - Skin, right neck B) - Skin, left forehead 1:29 PM T DERMATOPATHOLOGY LABORATORY Final Diagnosis Specimen A. 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 Jar 0. 1:29 PM T DERMATOPATHOLOGY LABORATORY Microscopic Description Specimen A. SKIN, right neck: The epidermis shows parakeratosis, full thickness disorderly maturation of keratinocytes, mitoses at different levels, and dyskeratotic cells. Specimen B. SKIN, left forehead: The epidermis shows parakeratosis, full thickness disorderly maturation of keratinocytes, mitoses at different levels, and dyskeratotic cells. 1:29 PM T DERMATOPATHOLOGY LABORATORY Disclaimer An external and internal positive and negative controls are appropriate for the histochemical, immunohistochemical and immunofluorescence stain(s) in this case (if any), except where stated explicitly. The performance characteristics of the stain(s) cited in this report were developed and its performance characteristic determined by the Dermatopathology Laboratory at [facility], directed by Dr. Luba Garcia. These tests need not be, and therefore are not, approved by the [place] Food and Drug Administration. The tests are used for clinical purposes. Billing Codes Specimen Charges Stain Charges 03290 [id number] 1 1 1:29 PM CDT DERMATOPATHOLOGY LABORATORY Embedded Images 1:29 PM CDT DERMATOPATHOLOGY LABORATORY Pathology/Cytology TISSUE SPECIMEN FROM SKIN / Unknown 04/13/2024 04/16/2024 11:01 AM CDT Miscellaneous samples (specimen) TISSUE SPECIMEN FROM SKIN / Unknown 04/13/2024 04/16/2024 11:01 AM CDT Lou Clark PA-C LAB - PATHOL OGY/CYTOLOGY ORDERABLES DERMATOPATHOLOGY LABORATORY [facility] - Department of [facility] [address] [place] [address], [address] [phone] Care Teams Planer Offbearer Relationship Specialty Start Date End Date Bennie Nova MD PCP - General Internal Medicine 10/10/12
--- OUTSIDE RECORDS SUMMARY | 2025-01-10 08:11 | XMS_ITS | Referral Summary ---
Author Organization [facility] Address [address] [place] [address] Care Team Providers Care Cocktail Waitress Name Role Phone Bennie Nova MD Primary Care Provider Alison jeronimo Source Comments [facility],non-owned Affiliates and Associated Physician Practices is amultiple site organization consisting of ambulatory clinics and hospital sitesin [place], [place], [place] and [place]. This disclosure is being madepursuant to the Care Everywhere program and may not contain all information available regarding this patient. Last updated 18.[facility] [address] Allergies No known active allergies Medications * [...] Comments Blood Pressure 182/85 10/09/2012 3:10 PM SILVERING DEPARTMENT SUPERVISOR Pulse 70 10/09/2012 3:10 PM SILVERING DEPARTMENT SUPERVISOR Temperature 36.7 C (98.1 F) 12/29/2010 11:35 AM SILVERING DEPARTMENT SUPERVISOR Respiratory Rate 16 12/29/2010 11:35 AM SILVERING DEPARTMENT SUPERVISOR Oxygen Saturation - - Inhaled Oxygen Concentration - - Weight 173.3 kg (382 lb) 10/09/2012 3:10 PM SILVERING DEPARTMENT SUPERVISOR Height 177.8 cm (5' 10 ) 10/09/2012 3:10 PM SILVERING DEPARTMENT SUPERVISOR Body Mass Index 54.81 10/09/2012 3:10 PM SILVERING DEPARTMENT SUPERVISOR Plan of Treatment Not on file Care Teams Cocktail Waitress Relationship Specialty Start Date End Date Bennie Nova MD PCP - General Internal Medicine 10/10/12
--- OUTSIDE RECORDS SUMMARY | 2025-01-10 08:11 | XMS_ITS | Patient Health Record ---
Author Organization [facility] Office Address [address] [place] [address] [place] [address] Care Team Providers Care Mammal Keeper Name Role Phone Gigi Justin Unavailable [phone] REASON FOR REFERRAL No Information MEDICATIONS Medication SIG (Take, Route, Frequency, Duration) Notes Start Date End Date Status Ergocalciferol 1.25 MG (21029 UT) 1 capsule Orally Once a week for 90 day(s) 04/25/2024 09/29/2025 Active Calcitriol 0.25 MCG 1 capsule Orally Onc e a day for 90 day(s) 04/25/2024 09/29/2025 Active SOCIAL HISTORY Sex Assigned At : Social History Observation Description Sex Assigned At Male PROBLEMS Problem Type ICD Code Onset Dates Problem Status W/U Status Risk SNOMED Code Notes Problem Hyperlipidemia, unspecified (E78.5) Active confirmed Hyperlipidemia (29817549) Problem Anxiety disorder, unspecified (F41.9) Active confirmed Anxiety disorde r (436950345) Problem Heart failure, unspecified (I50.9) Active confirmed Heart failure (45512431) Problem Chronic kidney disease, stage 2 (mild) (N18.2) Active confirmed Chronic kidne y disease stage 2 (551997418) Problem Renal osteodystrophy (N25.0) Active confirmed Renal osteodystrophy (69677739) Problem Chronic fatigue, unspecified (R53.82) Active confirmed Chronic fatigue syndrome (disorder) (81045560) Problem 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) Active confirmed History of malignant neoplasm of larynx (181145010) Problem Benign prostatic hyperplasia without lower urinary tract symptoms (N40.0) Active confirmed Benign pros tatic hypertrophy without outflow obstruction (220059573) Problem CAD (coronary artery disease) (I25.10) Active confirmed Coronary artery disease (79999363) Encounters Encounter Location Date Provider Diagnosis [place] [facility] [address] [facility] [place] [address] 03/23/2024 Gigi Justin Chronic kidney disea se, stage 3a N18.31 ; Anxiety disorder, unspecified F41.9 ; Chronic fatigue, unspecified R53.82 ; Renal osteodystrophy N25.0 and Heart failure, unspecified I50.9 [facility] [address] [place] [address] 04/04/2024 Gigi Justin Chronic kidney disea se, stage 3a N18.31 ; Anxiety disorder, unspecified F41.9 ; Chronic fatigue, unspecified R53.82 ; Renal osteodystrophy N25.0 and Heart failure, unspecified I50.9 [place] [facility] [address] [place] [address] 04/25/2024 Gigi Singh Chronic kidney disea se, stage 3a N18.31 ; Anxiety disorder, unspecified F41.9 ; Chronic fatigue, unspecified R53.82 ; Renal osteodystrophy N25.0 and Heart failure, unspecified I50.9 [place] [facility] [address] [place] [address] 07/13/20[facility] [address] [place] [address] 12/12/2024 Gigi Justin Chronic kidney disea se, stage 3a N18.31 ; 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 ; Hyperlipidemia, unspecified E78.5 ; CAD (coronary artery disease) I25.10 and Benign prostatic hyperplasia without lower urinary tract symptoms N40.0 [place] [facility] [address] [place] [address] 12/26/2024 [facility] Office [address] [place] [address] 01/02/2025 Gigi Justin Chronic kidney disea se, stage 2 (mild) N18.2 ; Anxiety disorder, unspecified F41.9 ; Chronic fatigue, unspecified R53.82 ; Renal osteodystrophy N25.0 ; Heart failure, unspecified I50.9 ; 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 ; Hyperlipidemia, unspecified E78.5 ; CAD (coronary artery disease) I25.10 and Benign prostatic hyperplasia without lower urinary tract symptoms N40.0 [facility] [address] [place] [address] 12/19/2024 Gigi Justin [place] [facility] [address] [facility] [address] [place] [address] 01/02/2025 [facility] Office [address] [facility] [address] [place] [address] 04/25/2024 Gigi Justin ASSESSMENTS Encounter Date Diagnosis Assessment Notes Treatment Notes Treatment Clinical Notes Section Notes 03/23/2024 Chronic kidney disease, stage 3a (ICD-10 - N18.31) 04/04/2024 Chronic kidney disease, stage 3a (ICD-10 - N18.31) 04/25/2024 Chronic kidney disease, stage 3a (ICD-10 - N18.31) 12/12/2024 Personal history of malignant neoplasm of larynx (ICD-10 - Z85.21) 12/12/2024 Chronic kidney disease, stage 3a (ICD-10 - N18.31) 01/02/2025 Chronic kidney disease, stage 2 (mild) (ICD-10 - N18.2) 01/02/2025 Anxiety disorder, unspecified (ICD-10 - F41.9) 12/12/2024 Hyperlipidemia, unspecified (ICD-10 - E78.5) 04/25/2024 Anxiety disorder, unspecified (ICD-10 - F41.9) 04/04/2024 Anxiety disorder, unspecified (ICD-10 - F41.9) 03/23/2024 Anxiety disorder, unspecified (ICD-10 - F41.9) 03/23/2024 Chronic fatigue, unspecified (ICD-10 - R53.82) 04/04/2024 Chronic fatigue, unspecified (ICD-10 - R53.82) 04/25/2024 Chronic fatigue, unspecified (ICD-10 - R53.82) 12/12/2024 CAD (coronary artery disease) (ICD-10 - I25.10) 01/02/2025 Chronic fatigue, unspecified (ICD-10 - R53.82) 01/02/2025 Renal osteodystrophy (ICD-10 - N25.0) 04/25/2024 Renal osteodystrophy (ICD-10 - N25.0) 12/12/2024 Benign prostatic hyperplasia without lower urinary tract symptoms (ICD-10 - N40.0) 04/04/2024 Renal osteodystrophy (ICD-10 - N25.0) 03/23/2024 Renal osteodystrophy (ICD-10 - N25.0) 03/23/2024 Heart failure, unspecified (ICD-10 - I50.9) 04/04/2024 Heart failure, unspecified (ICD-10 - I50.9) 04/25/2024 Heart failure, unspecified (ICD-10 - I50.9) 01/02/2025 Heart failure, unspecified (ICD-10 - I50.9) 01/02/2025 Personal history of malignant neoplasm of larynx (ICD-10 - Z85.21) 01/02/2025 Hyperlipidemia, unspecified (ICD-10 - E78.5) 01/02/2025 CAD (coronary artery disease) (ICD-10 - I25.10) 01/02/2025 Benign prostatic hyperplasia without lower urinary tract symptoms (ICD-10 - N40.0) PLAN OF TREATMENT Next Appt Details Provider Name:Gigi Justin , 02/13/2025 04:15:00 PM, [address] [facility], [facility] [address], [place], [address],
--- OUTSIDE RECORDS SUMMARY | 2025-01-10 08:12 | XMS_ITS | Clinical Summary ---
Author Organization [facility] Office Center Address [address] [place] [address] Care Team Providers Care Field Support Specialist Name Role Phone Bennie Nova MD Primary Care Provider Allergies No known active allergies Medications ALPRAZolam (XANAX) 1 mg tablet TAKE 1 TABLET 3 TIMES DAILY NEEDED. 5 Active clopidogreL (Plavix) 75 mg tablet TAKE 1 TABLET twice a week. Active colchicine (Mitigare) 0.6 mg capsule daily Active docusate sodium (Stool Softener) 100 mg capsule TAKE 1 CAPSULE 3 TIMES DAILY. Active dutasteride-tams ulosin (Bibiana) 0.5-0.4 mg capsule, ER multiphase 24 hr daily Act fermin empagliflozin (Jardiance) 10 mg tablet daily Active enoxaparin (LOVENOX) 120 mg/0.8 mL syringe INJECT 120 MG Twice daily beginning on 03/28/16, 03/29/16 and 03/30/16. INJECT 120 mg once daily in morning only on 03/31/16 6 Active famotidine (Pepcid) 20 mg tablet TAKE 1 TABLET AT BEDTIME. Active glipiZIDE XL (GLUCOTROL XL) 10 mg 24 hr tablet 2 times daily Active insulin lispro (HumaLOG) 100 unit/mL vial for injection sliding scale 5 Active metFORMIN (GLUCOPHAGE) 1,000 mg tablet TAKE TABLET 1 tab po every 24 hours Active metoprolol tartrate (LOPRESSOR) 50 mg immediate release tablet every 12 hours 5 Active multivitamin-min -iron-FA-vit K (Adults Multivitamin) 18 mg iron-400 mcg-25 mcg tablet daily [address] (PROTONIX) 20 mg EC tablet 2 times daily 6 Active rosuvastatin (Crestor) 10 mg tablet daily Active solifenacin (Vesicare) 10 mg tablet daily 5 Active torsemide (DEMADEX) 20 mg tablet 2 times daily Active traMADoL (ULTRAM) 50 mg tablet TAKE 1 TABLET EVERY 4 TO 6 HOURS NEEDED FOR PAIN. Active ursodioL (ACTIGALL) 300 mg capsule TAKE 1 CAPSULE 2 TIMES DAILY. 6 Active warfarin (Coumadin) 7.5 mg tablet every other day 5 Active atorvastatin (LIPITOR) 40 mg tablet Take 1 tablet (40 mg total) by mouth daily Active dipyridamole (PERSANTINE) 75 mg tablet Take 1 tablet (75 mg total) by mouth 4 (four) times a day Active ferrous sulfate 325 mg (65 mg of elemental iron) tabletIndication s:Iron Deficiency Anemia Take 1 tablet (65 mg of elemental iron total) by mouth 3 (three) times a day with meals Active vitamin B complex capsule Take 1 capsule by mouth daily Active sacubitriL-valsa rtan (ENTRESTO) 49-51 mg tabletIndication s:chronic heart failure Take 1 tablet by mouth Active nitroglycerin (NITROSTAT) 0.[address] 1 tablet (0.4 mg total) under the tongue every 5 (five) minutes as needed for chest pain Active albuterol 2.5 mg/0.5 mL solution for nebulization Take by nebulization Active finasteride (PROSCAR) 5 mg tablet Take 1 tablet (5 mg total) by mouth daily Active cholestyramine-a spartame (QUESTRAN LIGHT) 4 gram powder in packet Active HYDROcodone-acet aminophen (XODOL) 7.5-300 mg per tablet Take 1 tablet by mouth every 6 (six) hours as needed for moderate pain (pain scale 5-7) Active gabapentin (NEURONTIN) 300 mg capsule Take 1 capsule (300 mg total) by mouth 3 (three) times a day Active cholecalciferol (VITAMIN D-3) 2000 unit capsule 1 capsule (2,000 Units total) Active calcitRIOL (ROCALTROL) 0.25 mcg capsule Take 1 capsule (0.25 mcg total) by mouth daily Active finerenone (Kerendia) 20 mg tablet Take by mouth Active semaglutide (Ozempic) 2 mg/dose (8 mg/3 mL) pen injector injection Inject 2 mg under the skin once a week Active Active Problems Problem Noted Date Diagnosed Date Malabsorption 06/29/2016 History of bariatric surgery 03/04/2016 Eating disorder, unspecified 09/30/2015 Chronic coronary artery disease 09/18/2015 Diabetes mellitus 09/18/2015 Benign essential hypertension 09/18/2015 Obstructive sleep apnea syndrome 09/18/2015 Morbid obesity 09/18/2015 Arthritis 05/01/2015 Surgical History Surgery Date Site/Laterality Comments BARIATRIC SURGERY ARTHROSCOPIC REPAIR ACL 11/07/2007 - 11/06/2008 REPLACEMENT TOTAL KNEE Left CORONARY ARTERY BYPASS GRAFT 11/07/1994 - 11/06/1995 3 vessel AORTIC VALVE REPLACEMENT 11/07/2004 - 11/06/2005 PLASTIC SURGERY ear reconstruction FEMORAL ARTERY ANEURYSM REPAIR Right INSERT / REPLACE / REMOVE PACEMAKER BONE TUMOR RESECTION neck COLONOSCOPY Medical History Medical History Date Comments Diabetes (HCC) Neuropathy Heart disease Arthritis H/O aortic valve replacement Mitral valve regurgitation Colon polyp Atrial fibrillation (HCC) Hypertension Hyperlipidemia Coronary artery disease Myocardial infarction (HCC) Type 2 diabetes mellitus (HCC) Sleep apnea Prostate atrophy Family History Medical History Relation Name Comments Heart disease Brother 1 Family history of cardiac disorder - (Added by TW Conv) Diabetes Brother 2 Family history of diabetes mellitus - (Added by TW Conv) Diabetes Father Family history of diabetes mellitus - (Added by TW Conv) Heart disease Father Family history of cardiac disorder - (Added by TW Conv) Hypertension Father Family history of hypertension - (Added by TW Conv) Obesity Father Family history of obesity - (Added by TW Conv) Arthritis Mother Family history of arthritis - (Added by TW Conv) Heart disease Mother Family history of cardiac disorder - (Added by TW Conv) Obesity Other 1 Family history of obesity - (Added by TW Conv) Obesity Other 2 Family history of obesity - Relation: Grandparent (Added by TW Conv) Heart disease Sister 1 Family history of cardiac disorder - (Added by TW Conv) Cancer Sister 2 Family history of malignant neoplasm - (Added by TW Conv) Relation Name Status Comments Brother 1 Brother 2 Father Mother Other 1 Other 2 Sister 1 Sister 2 Social History Tobacco Use Types Packs/Day Years Used Date Smoking Tobacco: Never AUDIT-C Answer Date Recorded Q1: How often do you have a drink containing alcohol? Never 08/17/2024 Q2: How many drinks containi ng alcohol do you have on a typical day when you are drinking? Patient does not drink Q3: How often do you have si x or more drinks on one occasion? Never 08/17/2024 Personal Safety Answer Date Recorded Have you ever been in or are you currently in a harmful physical or emotional relationship or is someone making you feel afraid or unsafe? 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 SUPPORT EQUIPMENT ASSEMBLER Gender Identity Not on file Sexual Orientation Not on file Obstetrics History Last Filed Vital Signs Vital Sign Reading Time Taken Comments Blood Pressure 128/84 10/02/2024 12:46 PM GROUND SU[employer] EQUIPMENT ASSEMBLER Pulse 88 10/02/2024 12:46 PM GROUND SUPPORT EQUIPMENT ASSEMBLER Temperature 36.7 C (98.1 F) 08/17/2024 9:05 AM CDT Respiratory Rate 16 10/02/2024 12:46 PM GROUND SUPPORT EQUIPMENT ASSEMBLER Oxygen Saturation 98% 10/02/2024 12:46 PM GROUND SUPPORT EQUIPMENT ASSEMBLER Inhaled Oxygen Concentration - - Weight 113.4 kg (250 lb) 10/02/2024 12:46 PM GROUND SUPPORT EQUIPMENT ASSEMBLER Height 177.8 cm (5' 10 ) 10/02/2024 12:46 PM GROUND SUPPORT EQUIPMENT ASSEMBLER Body Mass Index 35.87 10/02/2024 12:46 PM GROUND SUPPORT EQUIPMENT ASSEMBLER Plan of Treatment Health Maintenance Due Date Last Done Comments Albumin Creatinine Ratio, Urine 1950 Depression Screening 1950 Fall Risk Assessment 1950 Hemoglobin A1C 1950 Hepatitis C Screening 1950 Dilated Eye Exam 1950 Foot Exam 1950 DTaP/Tdap/Td Vaccine (1 - Tdap) 1961 Hepatitis B Screening 01/30/1968 Pneumococcal vaccine 65+ (1 of 2 - PCV) 1969 Zoster Vaccine (1 of 2) 01/30/2000 Well Visit 65+ 2015 Lipid Panel 04/02/2017 04/02/2016 Influenza Vaccine (#1) 2024 09/22/2020 eGFR 07/29/2024 07/29/2023 Colon Cancer Screening-Colonoscopy 08/17/20342023 Medical Devices Implanted Type Area Shingle Carrier Device Identifier Shelf Expiration Date Model / Serial / Lot Pacemaker Pacemaker N/A: Heart Plate Plate Left: Knee Prosthetic Valve Prosthetic Valve Bilateral : Heart Procedures Procedure Name Priority Date/Time Associated Diagnosis Comments COLONOSCOPY 08/17/2024 8:17 AM CDT EGFR STAT 07/29/2023 10:21 AM CDT SERUM LIPID PANEL Routine 04/02/2016 3:0 8 AM CDT from Last 3 Months or Most Recently Relevant to Health Maintenance Results * Colonoscopy (08/17/2024 8:17 AM CDT) Anatomical Region Laterality Modality Other Narrative Procedure Note Meryl Spears MD - 08/17/2024 8:17 AM CDT [facility] END[facility] Patient Name: Reggie Nevarez Procedure Date: 08/17/2024 8:17 AM Date of : 1950 Admit Type: Outpatient Age: 74 Gender: Male Attending MD: Meryl Spears M.D. Room: [facility] ENDOSCOPY ROOM 05 Note Status: Finalized Procedure: Colonoscopy Indications: Chronic diarrhea Referring MD: Bennie Nova M.D. Providers: Meryl Spears M.D. Medicines: See the Anesthesia note for documentation of the administered medications Complications: No immediate complications. Estimated Blood Loss: Estimated blood loss: none. Procedure: Pre-Anesthesia Assessment: - Prior to the procedure, a History and Physicalwas performed, and patient medications, allergies and sensitivities were reviewed. The patient'stolerance of previous anesthesia was reviewed. - The risks and benefits of the procedure and the sedation options and risks were discussed with the patient. All questions were answered and informed consent was obtained. The benefits, risks and alternatives of theprocedure and sedation were discussed and informed consentwas obtained. All questions were answered. Please referto the signed informed consent document in the medical record. The scope was passed under direct vision.The PCF-H180AL colonoscope was introduced through theanus and advanced to the cecum, identified byappendiceal orifice and ileocecal valve. The colonoscopy was performed without difficulty. The patient tolerated the procedure well. The quality of the bowel preparation was good. The ileocecal valve,appendiceal orifice, and rectum were photographed. Prep was administered in a single dose. Findings: The perianal and digital rectal examinations were normal. Pertinent negatives include normal sphincter tone. A 5 mm polyp was found in the transverse colon. The polyp wassessile. The polyp was removed with a jumbo cold forceps. Resection andretrieval were complete. A 12 mm polyp was found in the sigmoid colon. The polyp was sessile.The polyp was removed with a hot snare. Resection and retrieval were complete. To prevent bleeding after the polypectomy, one hemostaticclip was successfully placed. Clip donor relations coordinator: [employer]. Therewas no bleeding at the end of the procedure. Multiple small-mouthed diverticula were found in the left colon. Biopsies were taken with a cold forceps for histology. The retroflexed view of the distal rectum and anal verge was normaland showed no anal or rectal abnormalities. Impression: - One 5 mm polyp in the transverse colon, removedwith a jumbo cold forceps. Resected and retrieved. - One 12 mm polyp in the sigmoid colon, removedwith a hot snare. Resected and retrieved. Clip was placed. Clip donor relations coordinator: [employer]. - Diverticulosis in the left colon. Biopsied. - The distal rectum and anal verge are normal on retroflexion view. Recommendation: - Resume previous diet. - Continue present medications. - Await pathology results. Meryl Spears M.D. Meryl Spears M.D. 08/17/2024 9:11:17 AM . Number of Addenda: 0 Note Initiated On: 08/17/2024 8:17 AM Recognized by the [employer] for promoting quality in endoscopy Meryl Spears MD ENDOSCOPY PROCEDURES Kim l Result * eGFR (07/29/2023 10:21 AM CDT) eGFR >90 90 - 130 mL/min/1. 73 m2 [facility] Comment: Interpretive Data Reference Interval Normal >/= 90 mL/min/1.73m2 Mildly decreased* 60 - 89 mL/min/1.73m2 Mildly to moderately decreased 45 - 59 mL/min/1.73m2 Moderately to severely decreased 30 - 44 mL/min/1.73m2 Severely decreased 15 - 29 mL/min/1.73m2 Kidney Failure < 15 mL/min/1.73m2 *Relative to young adult level Estimated glomerular filtration rate is determined by the 2020 CKD-EPI equation recommended by the National Kidney Foundation (A Unifying Approach to GFR Estimation: Recommendations of the NKF-ASK Task Force on Reassessing the Inclusion of Race in Diagnosing Kidney Disease, JASN 2020). The CKD-EPI equation should not be used for patients with unstable renal function and has not been validated in children and those over 70. Current interpretive data was last reviewed 2021. Blood 07/29/2023 10:2 1 AM CDT 07/29/2023 10:27 AM CDT Benjy Webb MD LAB BLOOD ORDERABLES Final Result [facility] Department [place] [address] * (ABNORMAL) Serum lipid panel (04/02/2016 3:08 AM CDT) Cholesterol 186 30 - 200 mg/dl HISTORICAL RESULTS Comment: Interpretive Data Desirable: <200 mg/dL Borderline high: 200-239 mg/dL High: > or = 240 mg/dL Literature Reference: National Cholesterol Education Program (NCEP) Expert Panel on Detection, Evaluation, and Treatment of High Blood Cholesterol in Adults (Adult Treatment Panel III). Circulation 2004; 110:227. Current interpretive data was last revised on 2015. Triglycerides 556(H) 0 - 150 mg/dl HISTORICAL RESULTS Comment: Interpretive Data Desirable: < 150 mg/dL Borderline High: 150 - 199 mg/dL High: 200 - 499 mg/dL Very High: > or = 499 mg/dL Literature Reference: See Cholesterol Current interpretive data was last revised on 2015. HDL 21(L) >=40 mg/dl HISTORICAL RESULTS Comment: Interpretive Data Less than 40 mg/dL - low; A major risk factor for heart disease. Greater than or equal to 60 mg/dL - High; considered protective of heart disease. Literature Reference: See Cholesterol Current interpretive data was last revised on 2015. LDL 54 10 - 129 mg/dl HISTORICAL RESULTS Comment: Interpretive Data Optimal: < 100 mg/dL Near Optimal: 100 - 129 mg/dL Borderline High: 130 - 159 mg/dL High: 160 - 189 mg/dL Very high: > or = 190 mg/dL Literature Reference: See Cholesterol Current interpretive data was last revised on 2015. Non-HDL cholesterol, calculated 165 mg/dl HISTORICAL RESULTS Comment: Interpretive Data When triglycerides are >200 mg/dL, non-HDL C is a secondary target of therapy, with a goal 30 mg/dL higher than the identified LDL-C goal. Reference: See Cholesterol Reference. Current interpretive data was last revised 2015. Serum 04/02/2016 3:08 AM CDT us Historical Provider LAB BLOOD ORDERABLES Kim carpio Result HISTORICAL RESULTS from Last 3 Months or Most Recently Relevant to Health Maintenance Insurance MEDICARE [employer] [place] MEDICARE [id number] [facility] MEDICARE [facility] BLUE CROSS MEDICARE SUPPLEMENT Care Teams Field Support Specialist Relationship Specialty Start Date End Date Bennie Nova MD [address] [place] [address] PCP - General Cardiovascular Disease 06/02/21
--- OUTSIDE RECORDS SUMMARY | 2025-01-10 08:12 | XMS_ITS ---
Author Organization [facility] Address [address] [address] [place] [address] Care Team Providers Care Manager Food Beverage Name Role Phone Nhan Gigi Unavailable [phone] SOCIAL HISTORY Sex Assigned At : Social History Observation Description Sex Assigned At Male Encounters Encounter Location Date Provider Diagnosis [place] [facility] [address] [facility] [address] [place] [address] 12/26/2024 Gigi Justin PLAN OF TREATMENT Next Appt Details Provider Name:Gigi Justin , 02/13/2025 04:15:00 PM, [address] [facility], [facility] [address], [place], [address], Progress Notes * MANNIE CABELLODOB:1950 ( 74 yo F)Acc No.[id number]:12/26/2024 Progress Notes Patient: MANNIE CABELLO Provider: MD DENY, Brandon.Jose.C.P, F.A.S.N. :1950 Age:74 Y Sex:Female Date:12/26/2024 Address:[address] [place], [place] [address] [address], [place] [address] Subjective: * Chief Complaints: * * Medical History: Objective: Assessment: Plan: * Treatment: * Billing Information: * Visit Code: * Procedure Codes: * YSIS TESTER Sign off status: Pending * Provider: MD DENY, Brandon.Jose.C.P, F.A.S.N. Date: 12/26/2024
--- OUTSIDE RECORDS SUMMARY | 2025-01-10 08:12 | XMS_ITS | Clinical Summary ---
Author Organization [facility] [place] Address [address] [place] [address] Care Team Providers Care Wildlife Removal Specialist Name Role Phone Tiana Patterson MD Primary Care Provider Allergies Active Allergy Reactions Criticality Noted Date Comments Finerenone Other (See Comments) Low 06/21/2024 Lowers BP Medications albuterol (PROVENTIL,VENTOL IN) 2.5 mg/0.5 mL Solution for Nebulization Take by inhalation. Active amoxicillin (AMOXIL) 500 mg capsule TAKE 4 CAPSULES BY MOUTH ONE DOSE 1 HOUR PRIOR TO PROCEDURE 4 Active atorvastatin (LIPITOR) 40 mg tablet Take 40 mg by mouth daily. Active calcitRIOL (ROCALTROL) 0.25 mcg capsule take 1 capsule by mouth every day for 90 days Active Cholecalciferol, Vitamin D3, 50 mcg (2,000 unit) Capsule 2,000 Units. Active cholestyramine aspartame (PREVALITE,QUESTR AN LIGHT) 4 gram Powder in Packet Take 4 Grams by mouth. Active dipyridamole (PERSANTINE) 75 mg tablet take 1 tablet by mouth four times a day Active cyanocobalamin 1,000 mcg Tablet Take 1 Tablet by mouth daily. 4 Active Zetia 10 mg tablet Zetia 10 mg tablet 4 Active ergocalciferol (VITAMIN D2) 50,000 unit capsule Take 50,000 Units by mouth every 7 days. Active Jardiance 10 mg tablet Take 10 mg by mouth daily. Active ferrous sulfate 325 mg (65 mg iron) tablet ferrous sulfate 325 mg (65 mg iron) tablet 4 Active finasteride (PROSCAR) 5 mg tablet Take 5 mg by mouth daily. Active Kerendia 20 mg Tablet Take by mouth. 4 Active gabapentin (NEURONTIN) 300 mg capsule take 1 capsule by mouth four times a day Active HYDROcodone-aceta minophen (NORCO) 7.5-325 mg Tablet TAKE 1 TABLET BY MOUTH ONCE OR TWICE DAILY NEEDED 4 Active pantoprazole (PROTONIX) 40 mg Tablet, Delayed Release (E.C.) Take 40 mg by mouth daily. Active Entresto 97-103 mg Tablet Take 1 Tablet by mouth 2 times daily. Active Ozempic 2 mg/dose (8 mg/3 mL) Pen Injector INJECT 2MG UNDER THE SKIN ONCE WEEKLY. START WEEK 13 AND CONTINUE THEREAFTER Active SITagliptin phosphate (Januvia) 100 mg Tablet Take 100 mg by mouth daily. Active tamsulosin (FLOMAX) 0.4 mg capsule Take 0.4 mg by mouth daily. Active triamcinolone acetonide (KENALOG) 0.1 % Cream APPLY THIN COAT TO AFFECTED AREA TWICE A DAY Active warfarin (COUMADIN) 7.5 mg tablet warfarin 7.5 mg tablet Active Active Problems Problem Noted Date Diagnosed Date Diabetes mellitus 09/18/2015 Overview (11/01/2024): neg egfr Encounters Date Type Department Care Team Description 12/25/2024 External Device Data [facility]CTION Provider, Abstract 11/29/2024 External Device Data [facility] Provider, Abstract 11/28/2024 External Device Data [facility] Provider, Abstract 11/27/2024 External Device Data [facility] Provider, Abstract 11/20/2024 External Device Data [facility] Provider, Abstract 11/06/2024 External Device Data [facility] Provider, Abstract 11/01/2024 12:00 PM GAUGER DELIVERY Office Visit [facility] On[facility] and H[facility]ology - [place] [address] [place] [id number] Baron Menjivar MD Lymphadenopathy (Primary Dx) from Last 3 Months Family History Medical History Relation Name Comments Heart Disease Brother No Known Problems Child 1 No Known Problems Child 2 Diabetes Father Heart Disease Father No Known Problems Mother No Known Problems Sister Relation Name Status Comments Brother Child 1 Alive Child 2 Alive Father Mother Sister Alive Social History Tobacco Use Types Packs/Day Years Used Date Smoking Tobacco: Never Smokeless Tobacco: Never Alcohol Use Standard Drinks/Week Comments Never 0 (1 standard drink = 0.6 oz pur e alcohol) Sex and Gender Information Value Date Recorded Sex Assigned at Not on file Legal Sex Male 3:06 PM GAUGER DELIVERY Gender Identity Not on file Sexual Orientation Not on file Last Filed Vital Signs Vital Sign Reading Time Taken Comments Blood Pressure 131/79 11/01/2024 11:29 AM GAUGER DELIVERY Pulse 84 11/01/2024 11:29 AM GAUGER DELIVERY Temperature 36.6 C (97.8 F) 11/01/2024 11:29 AM GAUGER DELIVERY Respiratory Rate 16 11/01/2024 11:29 AM GAUGER DELIVERY Oxygen Saturation 96% 11/01/2024 11:29 AM GAUGER DELIVERY Inhaled Oxygen Concentration - - Weight 112.5 kg (248 lb) 11/01/2024 11:29 AM GAUGER DELIVERY Height 177.8 cm (5' 10 ) 11/01/2024 11:29 AM GAUGER DELIVERY Body Mass Index 35.58 11/01/2024 11:29 AM GAUGER DELIVERY Plan of Treatment Upcoming Encounters Date Type Department Care Team (Late st Contact Info) Description 02/08/2025 11:30 AM CDT Office Visit [facility] - [place] [address] [facility] [address] [place] [address] Tommy Ruiz MD [address] [facility] [address] [place] [address] Health Maintenance Due Date Last Done Comments DIABETES ANNUAL FOOT EXAM 01/30/1968 DIABETES ANNUAL RETINAL EXAM 01/30/1968 DIABETES HBA1C Q 6 MONTHS 01/30/1968 DIABETES MICROALBUMIN ANNUAL SCREEN 01/30/1968 LDL CHOLESTEROL ANNUAL 01/30/1968 DTAP/TDAP/TD VACCINES (1 - Tdap) 1969 PNEUMOCOCCAL VACCINE 50+ YEA RS (1 of 2 - PCV) 1969 FIT-DNA Q 3 years 1995 FIT/FOBT Q 1 year 1995 Flex Sig/CT Colonography Q 5 years 1995 ZOSTER VACCINE (1 of 2) 01/30/2000 RSV VACCINE (60+ or ) (1 - Risk 60-74 years 1-dose series) 2010 INFLUENZA VACCINE (#1) 2024 COLORECTAL SCREENING 08/17/2034 08/17/2024, 08/17/20 Colorectal Cancer Screening 08/17/2034 Insurance MEDICARE PART A AND B BCBS SUPP Care Teams Wildlife Removal Specialist Relationship Specialty Start Date End Date Tiana Patterson MD [address] [place] [id number] PCP - General Internal Medicine 11/02/24
--- OUTSIDE RECORDS SUMMARY | 2025-01-10 08:12 | XMS_ITS | CONTINUITY OF CARE DOCUMENT ---
Author Name brant guo Address Unknown Organization [facility] Address [address] [place] [address] Phone [phone] Care Team Providers Care Customer Engineer Name Role Phone Karl Wyman MD Unavailable [phone] Karl Wyman MD Unavailable NAHED WALTER MD Unavailable [phone] PROBLEMS Condition Status Date Provider Notes Vitamin D deficiency active Karl Hylton D B12 deficiency active Karl Wyman MD FOAL TE [facility] anticoagulant therapy active Rosalie Ulloa RN CAD s/p CABG;carotid plaue active Karl agudelo MD BALTAZAR to LAD and diagonal s tent circ , because free radial clsoed mechanical aortic valve replacement active Karl Wyman MD Hypertension active Karl Wyman MD Hyperlipidemia;NEG CRP and lpa active Karl Wyman MD NANI, adult;cpap in [place] active Karl Wyman MD Atrial fib;NML TSH active Karl Wyman MD and frequeent pvc and nsvt Morbid obesity active Karl Wyman MD kaye alysa slavere Diabetes mellitus, type 2 active Karl barfield MD neg egfr Systolic heart failure, chronic active Karl Wyman MD lowest 35 Microalbuminuria active Karl Wyman MD ne g egfr o n x 3 rx Pulmonary hypertension completed 1 - Karl Wyman MD Diarrhea active Karl Wyman MD IRON DEFICIENCY active Karl Wyman MD Screening active Karl Wyman MD FAMILY HISTORY OF HEART DISEASE active Karl Wyman MD dad Pulsatile tinnitus, bilateral completed - Karl Wyman MD PVCs active Meet foy MD Bradycardia, severe completed - Karl Wyman MD Sick sinus syndrome active Meet Naranjo MD S/P Dual chamb PCM - Biotronik ( MRI Safe) active Karl Wyman MD rv lead i n septum by sk Mitral regurgitation, severe active Kvng Jenkins MD Adenomatous colonic polyp active Karl barfield MD ENCOUNTERS Date Type Provider Location Encounter Diag nosis - In-person encounter Office Visit Karl Wyman MD [facility] MicroalbuminuriaAdenomatous colonic polyp - In-person encounter Office Visit Karl Wyman MD [facility] - In-person encounter Office Visit Karl Wyman MD [facility] - In-person encounter Office Visit Kvng Jenkins MD [facility] Mitral regurgitation, severe - In-person encounter Office Visit Karl Wyman MD [facility] CAD s/p CABG;carotid plaueSystolic heart failure, chronic - In-person encounter Office Visit Karl Wyman MD [facility] CAD s/p CABG;carotid plauePulmonary hypertensionS/P Dual chamb PCM - Biotronik ( MRI Safe) - In-person encounter Office Visit Meet Naranjo MD [facility] - In-person encounter Office Visit Karl Wyman MD [facility] CAD s/p CABG;carotid plaueOSA, adult;cpap in tolDiabetes mellitus, type 2Systolic heart failure, chronicScreeningPulsatile tinnitus, bilateralBradycardia, severe - In-person encounter Office Visit Meet Naranjo MD [facility] - In-person encounter Office Visit Meet Naranjo MD [facility] - In-person encounter Office Visit Meet Naranjo MD [facility] ScreeningPVCsSick sinus syndrome - In-person encounter Office Visit Karl Wyman MD [facility] mechanical aortic valve replacementAtrial fib;NML TSHMorbid obesitySystolic heart failure, chronicDiarrheaIRON DEFICIENCYFAMILY HISTORY OF HEART DISEASE - In-person encounter Office Visit Lincoln Maldonado MD [facility] - In-person encounter Office Visit Karl Wyman MD [facility] CAD s/p CABG;carotid plauemechanical aortic valve replacementHypertensionHyperlipi demia;NEG CRP and lpaOSA, adult;cpap in tolAtrial fib;NML TSHMorbid obesityDiabetes mellitus, type 2Systolic heart failure, chronic VITAL SIGNS Date Observation Value Provider Body Mass Index (Ratio) 35.41 kg/m2 Ronda Wyman MD blood pressure, diastolic 79 mm[Hg] [facility] [place] [facility], systolic 131 mm[Hg] Gissellemanny bailey [place] oxygen saturation, oximetry 99 % [facility] pulse rate 85 /min [facility] blood pressure, cuff size regular [facility] weight E&M 246.8 [lb_av] [facility] height E&M 70 [in_i] [facility] Body Mass Index (Ratio) 34.43 kg/m2 Ronda Wyman MD respiratory rate E&M 12 /min Mattie Hamlin blood pressure, cuff size regular Ol ivia [place] blood pressure, diastolic 64 mm[Hg] Ol ivia [place] blood pressure, systolic 158 mm[Hg] Foreign via [place] oxygen saturation, oximetry 98 % Mattie Hamlin pulse rate 91 /min Mattie [place] weight E&M 240 [lb_av] Mattie [place] height E&M 70 [in_i] Mattie [place] Body Mass Index (Ratio) 34.15 kg/m2 Ronda Wyman MD pulse rate 87 /min Kira Vasquez blood pressure, cuff size regular Ta dat Vasquez blood pressure, diastolic 78 mm[Hg] Ta bitha Vasquez blood pressure, systolic 120 mm[Hg] Tab itha Vasquez oxygen saturation, oximetry 97 % Kira Vasquez weight E&M 238 [lb_av] Kira Vasquez respiratory rate E&M 12 /min Kira Vasquez height E&M 70 [in_i] Kira Vasquez Body Mass Index (Ratio) 34.81 kg/m2 Norman Jenkins MD pulse rate 77 /min Isa Ruiz blood pressure, diastolic 82 mm[Hg] Li zbeth Waller blood pressure, systolic 138 mm[Hg] Elaine latosha Waller oxygen saturation, oximetry 98 % Isa Ruiz respiratory rate E&M 12 /min Isa Ruiz blood pressure, cuff size regular [facility]&M 242.6 [lb_av] Isa Waller height E&M 70 [in_i] Isa Ruiz Body Mass Index (Ratio) 34.15 kg/m2 Ronda Wyman MD blood pressure, cuff size large Ke rri Gruenenfelder blood pressure, diastolic 50 mm[Hg] Ke rri Gruenenfelder blood pressure, systolic 92 mm[Hg] Ker ri Gruenenfelder oxygen saturation, oximetry 96 % Brenda Gruenenfelder respiratory rate E&M 12 /min Brenda G ruenenfelder pulse rate 75 /min Brenda Gruenenfe lder weight E&M 238 [lb_av] Brenda Gruenenfe lder height E&M 70 [in_i] Brenda Gruenenfe [facility] Body Mass Index (Ratio) 34.86 kg/m2 Ronda Wyman MD respiratory rate E&M 20 /min Chung Keith blood pressure, cuff size regular Do nnell Keith blood pressure, diastolic 93 mm[Hg] Do nnell Keith blood pressure, systolic 137 mm[Hg] Eddy meyers Keith pulse rate 77 /min Chung Keith oxygen saturation, oximetry 95 % Chung Keith weight E&M 243 [lb_av] Chung Keith height E&M 70 [in_i] Chung Keith Body Mass Index (Ratio) 34.86 kg/m2 Estiven Naranjo MD blood pressure, cuff size large Ke rri Gruenenfelder blood pressure, diastolic 70 mm[Hg] Ke rri Gruenenfelder blood pressure, systolic 120 mm[Hg] Ker ri Gruenenfelder oxygen saturation, oximetry 96 % Brenda Gruenenfelder respiratory rate E&M 12 /min Brenda G ruenenfelder pulse rate 70 /min Brenda Tomas [facility] weight E&M 243 [lb_av] Brenda Tomas [facility] height E&M 70 [in_i] Brenda Tomas [facility] Body Mass Index (Ratio) 35.01 kg/m2 Ronda Wyman MD weight E&M 244 [lb_av] [facility], cuff size regular Tr lisette Null blood pressure, diastolic 92 mm[Hg] lisette Null blood pressure, systolic 157 mm[Hg] [facility] oxygen saturation, oximetry 97 % [facility] respiratory rate E&M 18 /min [facility] pulse rate 67 /min [facility] Body Mass Index (Ratio) 34.86 kg/m2 Estiven Naranjo MD oxygen saturation, oximetry 97 % Brenda Vargas respiratory rate E&M 12 /min Brenda potter pulse rate 66 /min Brenda Marin [facility] weight E&M 243 [lb_av] Brenda Marin [facility] height E&M 70 [in_i] Brenda Tomas Body Mass Index (Ratio) 34.29 kg/m2 Ochoa Becerra blood pressure, cuff size regular Ja rret blood pressure, diastolic 76 mm[Hg] Ja rret blood pressure, systolic 126 mm[Hg] Jar ret pulse rate 79 /min Evan oxygen saturation, oximetry 98 % Evan respiratory rate E&M 16 /min Evan Easterday weight E&M 239 [lb_av] Evan y height E&M 70 [in_i] Evan y Body Mass Index (Ratio) 34.72 kg/m2 Estiven Naranjo MD blood pressure, diastolic 80 mm[Hg] Li nkLogic blood pressure, systolic 172 mm[Hg] Alessia kLogic blood pressure, cuff size regular Ke rri Gruenenfelder blood pressure, diastolic 80 mm[Hg] Ke rri Gruenenfelder blood pressure, systolic 172 mm[Hg] Spencer ri [place] oxygen saturation, oximetry 98 % [facility] rate E&M 12 /min [facility]da [facility] pulse rate 90 /min Brenda Tomas lder weight E&M 242 [lb_av] Brenda Grmarcinfe lder height E&M 70 [in_i] Brenda Gruenenfe er Body Mass Index (Ratio) 35.15 kg/m2 Ronda Wyman MD blood pressure, cuff size regular Ja rret blood pressure, diastolic 83 mm[Hg] Ja rret blood pressure, systolic 135 mm[Hg] Jar ret pulse rate 57 /min Evan y oxygen saturation, oximetry 98 % Evan respiratory rate E&M 16 /min Evan weight E&M 245 [lb_av] Evan y height E&M 70 [in_i] Evan y blood pressure, cuff size regular Ja rret blood pressure, diastolic 86 mm[Hg] Ja rret blood pressure, systolic 136 mm[Hg] Khris ret pulse rate 65 /min Evan y oxygen saturation, oximetry 98 % Evan respiratory rate E&M 14 /min Evan height E&M 70 [in_i] Evan y Body Mass Index (Ratio) 35.01 kg/m2 Ronda Wyman MD height E&M 70 [in_i] [facility] blood pressure, cuff size regular [facility] blood pressure, diastolic 77 mm[Hg] [facility] blood pressure, systolic 148 mm[Hg] [facility] rate 92 /min [facility] oxygen saturation, oximetry 99 % [facility] respiratory rate E&M 15 /min [facility] iller weight E&M 244 [lb_av] [facility] ALLERGIES Allergy Name Onset Date Reaction Criticality Status KERENDIA charli bp Low Criticality active MULTAQ Low Criticality active RESULTS Date Observation Value Provider Reference Range Interpretation Location coagulation managed by Chay Goetz RN international normalized ratio (INR) 3.2 Chay Goetz RN Normal prothrombin time (patient) 38.7 s Chay Goetz RN coagulation managed by Chay Goetz RN international normalized ratio (INR) 3.2 Chay Goetz RN Normal prothrombin time (patient) 28.4 s Chay Goetz RN coagulation managed by Chay Goetz RN international normalized ratio (INR) 2.6 Chay Goetz RN Normal prothrombin time (patient) 31.4 s Chay Goetz RN coagulation managed by Chay Goetz RN international normalized ratio (INR) 3.3 Chay Goetz RN Normal prothrombin time (patient) 40.0 s Chay Bahs RN coagulation managed by Chay Goetz RN Chay Goetz RN international normalized ratio (INR) 3.2 Chay Bahs RN Normal prothrombin time (patient) 38.9 s Chay Bahs RN coagulation managed by Sera Souza RN international normalized ratio (INR) 2.9 Sera Souza RN Normal coagulation managed by Chay Goetz RN Chay Goetz RN international normalized ratio (INR) 1.9 Chay Goetz RN Normal prothrombin time (patient) 22.6 s Chay Goetz RN coagulation managed by Chay Goetz RN international normalized ratio (INR) 6.4 Chay Goetz RN Normal prothrombin time (patient) 77.3 s Chay Goetz RN coagulation managed by Chay Goetz RN international normalized ratio (INR) 3.3 Chay Goetz RN Normal prothrombin time (patient) 39.2 s Chay Goetz RN coagulation managed by Rosalie Ulloa RN prothrombin time (patient) 23.3 s Rosalie Ulloa RN international normalized ratio (INR) 1.9 Rosalie Ulloa RN Normal coagulation managed by Chay Goetz RN international normalized ratio (INR) 1.6 Chay Goetz RN Normal prothrombin time (patient) 19.8 s Chay Goetz RN coagulation managed by Rosalie Ulloa RN international normalized ratio (INR) 2.3 Rosalie Ulloa RN Normal prothrombin time (patient) 28.2 s Rosalie Ulloa RN coagulation managed by Rosalie Ulloa RN prothrombin time (patient) 25.2 s Rosalie Ulloa RN international normalized ratio (INR) 2.1 Rosalie Ulloa RN Normal coagulation managed by Rosalie Ulloa RN international normalized ratio (INR) 1.8 Rosalie Ulloa RN Normal coagulation managed by Chay Goetz RN Chay Goetz RN international normalized ratio (INR) 2.6 Chay Goetz RN Normal prothrombin time (patient) 30.9 s Chay Goetz RN coagulation managed by Chay Goetz RN Chay Goetz RN international normalized ratio (INR) 1.7 Chay Bahs RN Normal prothrombin time (patient) 19.8 s Chay Goetz RN coagulation managed by Chay Goetz RN Chay Goetz RN international normalized ratio (INR) 2.1 Chay Bahs RN Normal prothrombin time (patient) 25.4 s Chay Goetz RN coagulation managed by Rosalie Ulloa RN international normalized ratio (INR) 2.5 Rosalie Ulloa RN Normal coagulation managed by Chay Bahs RN Chay Goetz RN international normalized ratio (INR) 1.9 Chay Bahs RN Normal prothrombin time (patient) 22.5 s Chay Bahs RN coagulation managed by Chay Bahs RN Chay Goetz RN international normalized ratio (INR) 3.3 Chay Goetz RN Normal prothrombin time (patient) 39.7 s Chay Goetz RN coagulation managed by Chay Goetz RN Chay Goetz RN international normalized ratio (INR) 3.1 Chay Goetz RN Normal prothrombin time (patient) 37.7 s Chay Bahs RN coagulation managed by Rosalie Ulloa RN prothrombin time (patient) 29.9 s Rosalie Ulloa RN international normalized ratio (INR) 2.5 Rosalie Ulloa RN Normal coagulation managed by Chay Goetz RN Chay Bahs RN international normalized ratio (INR) 3.7 Chay Goetz RN Normal prothrombin time (patient) 44.1 s Chay Goetz RN coagulation managed by Chay Goetz RN international normalized ratio (INR) 1.3 Chay Goetz RN Normal prothrombin time (patient) 16.1 s Chay Goetz RN coagulation managed by Chay Goetz RN international normalized ratio (INR) 2.7 Chay Goetz RN Normal prothrombin time (patient) 32.7 s Chay Goetz RN coagulation managed by Chay Goetz RN international normalized ratio (INR) 2.4 Chay Goetz RN Normal prothrombin time (patient) 29.1 s Chay Goetz RN international normalized ratio (INR) 4.8 Brenda Betancurbrennen Normal prothrombin time (patient) 57.1 s Brenda Vargas coagulation managed by Rosalie Ulloa RN prothrombin time (patient) 48.1 s Rosalie Ulloa RN international normalized ratio (INR) 4.0 Rosalie Ulloa RN Normal coagulation managed by Rosalie Ulloa RN international normalized ratio (INR) 2.4 Rosalie Ulloa RN Normal prothrombin time (patient) 28.7 s Rosalie Ulloa RN coagulation managed by Rosalie Ulloa RN prothrombin time (patient) 17.9 s Rosalie Ulloa RN international normalized ratio (INR) 1.5 Rosalie Ulloa RN Normal coagulation managed by Chay Goetz RN international normalized ratio (INR) 3.1 Chay Goetz RN Normal prothrombin time (patient) 37.2 s Chay Goetz RN coagulation managed by Chay Goetz RN international normalized ratio (INR) 2.8 Chay Goetz RN Normal prothrombin time (patient) 33.4 s Chay Goetz RN coagulation managed by Chay Bahs RN international normalized ratio (INR) 2.3 Chay Bahs RN Normal prothrombin time (patient) 27.7 s Chay Bahs RN coagulation managed by Chay Bahs RN Chay Bahs RN international normalized ratio (INR) 2.4 Chay Bahs RN Normal prothrombin time (patient) 29.2 s Chay Bahs RN coagulation managed by Chay Goetz RN Chay Bahs RN international normalized ratio (INR) 1.5 Chay Goetz RN Normal prothrombin time (patient) 17.8 s Chay Bahs RN coagulation managed by Chay Cartwright Goetz RN international normalized ratio (INR) 1.3 Chay Goetz RN Normal prothrombin time (patient) 15.5 s Chay Goetz RN coagulation managed by Chay Cartwright Goetz RN international normalized ratio (INR) 1.2 Chay Goetz RN Normal prothrombin time (patient) 14.6 s Chay Bahs RN coagulation managed by Chay Cartwright Goetz RN international normalized ratio (INR) 4.3 Chay Goetz RN Normal prothrombin time (patient) 51.4 s Chay Bahs RN international normalized ratio (INR) 2.3 Sheryl Arriola Normal coagulation managed by Sheryl Arriola international normalized ratio (INR) 3.1 Sheryl Arriola Normal coagulation managed by Sheryl Arriola coagulation managed by Chay Goetz RN international normalized ratio (INR) 2.4 Chay Bahs CHRIS Normal prothrombin time (patient) 28.4 s Chay Goetz RN coagulation managed by Chay Bahs RN international normalized ratio (INR) 1.9 Chay Goetz RN Normal international normalized ratio (INR) 2.1 Chay Goetz RN Normal coagulation managed by Chay Goetz RN coagulation managed by Chay Goetz RN international normalized ratio (INR) 3.2 Chay Bahkeiry PEREZ Normal prothrombin time (patient) 38.5 s Chay Goetz RN coagulation managed by Chay Goetz RN international normalized ratio (INR) 3.5 Chay Goetz RN Normal prothrombin time (patient) 42.2 s Chay Goetz RN international normalized ratio (INR) 3.0 Sheryl Flako Normal coagulation managed by Sheryl Arriola RN Sheryltheresa Arriola coagulation managed by Rosalie Ulloa RN international normalized ratio (INR) 1.9 Rosalie Ulloa RN Normal prothrombin time (patient) 22.8 s Rosalie Ulloa RN coagulation managed by Chay Goetz RN international normalized ratio (INR) 5.0 Sheryl Arriola Normal coagulation managed by Rosalie Ulloa RN international normalized ratio (INR) 1.3 Rosalie Ulloa RN Normal prothrombin time (patient) 15.8 s Rosalie Ulloa RN coagulation managed by Rosalie Ulloa RN international normalized ratio (INR) 1.3 Rosalie Ulloa RN Normal prothrombin time (patient) 15.8 s Rosalie Ulloa RN coagulation managed by Chay Goetz RN international normalized ratio (INR) 1.9 Chay Goetz RN Normal prothrombin time (patient) 23.0 s Chay Goetz RN coagulation managed by Rosalie Ulloa RN international normalized ratio (INR) 6.0 Rosalie Ulloa RN Normal prothrombin time (patient) 72.3 s Rosalie Ulloa RN coagulation managed by Rosalie Ulloa RN coagulation managed by Chay Goetz RN international normalized ratio (INR) 1.8 Chay Goetz RN Low prothrombin time (patient) 22.0 s Chay Goetz RN HISTORY OF MEDICATION USE Medication Status Instructions Dates Provider Indications Com ments warfarin 7.5 mg tablet active TAKE 1 TABLET BY MOUTH ON TUESDAY, TUESDAY AND Tuesday Sheryl Flako warfarin 7.5 mg tablet completed Take one tab on Tuesdays, , and Saturdays. - Sheryl Flako ferrous sulfate 325 mg (65 mg iron) tablet active TAKE 1 TABLET BY MOUTH EVERY DAY Sheryl Flako Jardiance 10 mg tablet active TAKE 1 TABLET BY MOUTH EVERY DAY Sheryl Flako Zetia 10 mg tablet active Take 1 tablet by mouth once daily Karl Wyman MD Entresto 97-103 mg tablet active Take 1 tablet by mouth twice a day Karl Wyman MD triamcinolone acetonide 0.1% cream active Karl Wyman MD nitroglycerin 0.4 mg tablet, sublingual active Karl Wyman MD triamcinolone aceton-0.9% NaCl completed - Karl Wyman MD calcitriol 0.25 mcg capsule active TAKE 0.25 MCG CAPSULE A DAY Yuliana Aldana cholestyramine (bulk) powder active Yuliana Aldana Nitrostat completed DOSE UNKNOWN , NEEDED - Karl Wyman MD Nitrostat completed - Karl Wyman MD warfarin 5 mg tablet active Take 1 tablet by mouth on Mon, Wed, Fri, Sun. Sheryl Arriola Kerendia 20 mg tablet active TAKE 1 TABLET BY MOUTH ONCE A DAY Karl Wyman MD Entresto 49-51 mg tablet completed Take 1 tablet by mouth twice a day - Karl Morelsto 24-26 mg tablet completed Take 1 tablet by mouth twice a day - Karl Wyman MD Multaq 400 mg tablet completed TAKE 1 TABLET BY MOUTH TWICE DAILY WITH THE MORNING AND EVENING MEAL - Isa Waller hydrocodone-aceta minophen 7.5-300 mg tablet active Karl Wyman MD gabapentin 300 mg capsule active Karl Wyman MD torsemide 20 mg tablet completed as needed as directed TAKE 1 TABLET TWICE DAILY - Karl Wyman MD torsemide 20 mg tablet completed as needed as directed TAKE 1 TABLET TWICE DAILY - Karl Wyman MD Kerendia 20 mg tablet completed Take 1 tablet by mouth once a day - Kira Vasquez ergocalciferol (vitamin D2) 1,250 mcg (50,000 unit) capsule active TAKE 1 CAPSULE BY MOUTH EVERY 7 DAYS Karl Wyman MD warfarin 5 mg tablet completed Take 1 tablet by mouth every evening Except on Sat,Tues, and Thurs take 1 (one) tablet to = 5 mg - Rosalie Ulloa RN Coreg 3.125 mg tablet completed TAKE 1 TABLET BY MOUTH TWICE A DAY - Karl Wyman MD Entresto 97-103 mg tablet completed Take 1 tablet by mouth twice a day - Karl Wyman MD Ozempic 2 mg/dose (8 mg/3 mL) pen injector active Karl Wyman MD levofloxacin 500 mg tablet completed Take 1 tablet by mouth once a day for 14 days - Karl Wyman MD warfarin 2.5 mg tablet completed Take 1 tablet by mouth every evening Take With 5 mg tablet TUE,THUR,and SAT ONLY to = Seven and a half (7.5 mg) - Rosalie Ulloa RN warfarin 5 mg tablet completed Take 1 tablet by mouth every evening EXCEPT on Tues, Thurs, Sat and Sun take 1 1/2 tab - Rosalie Ulloa RN isosorbide mononitrate 30 mg tablet extended release 24 hr completed TAKE 1 TABLET BY MOUTH EVERY DAY - Karl Wyman MD dipyridamole 75 mg tablet active TAKE 1 TABLET BY MOUTH FOUR TIMES A DAY Brenda Vargas Percocet 5-325 mg tablet completed - Meet Naranjo MD cephalexin 500 mg capsule completed Take 1 capsule by mouth three times a day - Ochoa Bryanjai Percocet 5-325 mg tablet completed - Meet Naranjo MD Percocet 5-325 mg tablet completed Take 1 tablet by mouth every eight hours for pain - Karl Wyman MD atorvastatin 40 mg tablet active one tab daily Chay Goetz RN FeroSul 325 mg (65 mg iron) tablet completed Take 1 tablet by mouth once a day - Sheryl Arriola Kerendia 20 mg tablet completed Take 1 tablet by mouth once daily - Chay Goetz RN warfarin 5 mg tablet completed Take 1 tablet by mouth every evening EXCEPT on TUE,THUR and SAT Take one and one half tablets to = 7 1/2 mg - Chay Goetz RN warfarin 1 mg tablet completed Take 1 tablet by mouth every evening take on Tue-Tue-Tue only - Rosalie Ulloa RN warfarin 5 mg tablet completed Take 1 tablet by mouth every evening - Rosalie Ulloa RN warfarin 5 mg tablet completed Take 1 1/2 tablet by mouth every evening Per - Rosalie Ulloa RN Jardiance 10 mg tablet completed TAKE 1 TABLET BY MOUTH DAILY - Sheryl Arriola dipyridamole 75 mg tablet completed 1 tablet by mouth four times a day - Brenda Vargas sotalol 80 mg tablet completed one tab every 12 hours - Lincoln Maldonado MD pantoprazole 40 mg tablet,delayed release (DR/EC) active [facility] mg tablet completed - Karl Wyman MD sotalol 80 mg tablet completed - [facility] [employer] torsemide 20 mg tablet completed one tab as needed - Karl Wyman MD aspirin 81 mg capsule completed - [facility] hydrocodone-aceta minophen 10-300 mg tablet completed - Karl Wyman MD sildenafil 100 mg tablet completed - Karl Wyman MD albuterol sulfate 90 mcg/actuation HFA aerosol inhaler active Rose Mary Vasquez omega 3 completed - [facility] furosemide 20 mg tablet completed - [facility] rosuvastatin 10 mg tablet completed - Chay Goetz RN isosorbide mononitrate 30 mg tablet extended release 24 hr completed one tab in AM - Sheryl Flako warfarin tablet completed Mon&Fri 7.5mgT,W,Th,S,S -5mg - Rosalie Ulloa RN finasteride 5 mg tablet active one tab daily Chay Goetz RN tamsulosin 0.4 mg capsule active once daily Chay Goetz RN valsartan 160 mg tablet completed one tab every 12 hours - Karl Wyman MD semaglutide 1 mg/dose (4 mg/3 mL) pen injector completed once weekly - Karl Wyman MD metformin 1,000 mg tablet completed one tab daily - Karl Wyman MD SOCIAL HISTORY Date Observation Value Provider personal history of marijuana use no Karl Wyman MD drug use no Karl Hawthorne alcohol use no Karl [place]th[place] smoking status Never smoker Karl Wyman MD personal history of marijuana use no Karl Wyman MD drug use no Karl [place] alcohol use no Karl Serota M D smoking status Never smoker Karl Wyman MD personal history of marijuana use no Karl Wyman MD drug use no Karl Serota M D alcohol use no Karl Serota M D smoking status Never smoker Karl Wyman MD personal history of marijuana use no Isa Waller drug use no Isa Waller alcohol use no Isa Waller smoking status Never smoker Isa Waller personal history of marijuana use no Karl Wyman MD drug use no Karl Serota M D alcohol use no Karl Serota M D smoking status Never smoker Karl Wyman MD personal history of marijuana use no Karl Wyman MD drug use no Karl Serota M D alcohol use no Karl Serota M D smoking status Never smoker Karl Wyman MD personal history of marijuana use no Karl Wyman MD drug use no Karl Serota M D alcohol use no Karl Serota M D smoking status Never smoker Karl Wyman MD personal history of marijuana use no Ochoa Becerra drug use no Ochoa Becerra alcohol use no Ochoa Becerra smoking status Never smoker Ochoa Becerra personal history of marijuana use no Ochoa Becerra drug use no Ochoa Becerra alcohol use no Ochoa Becerra smoking status Never smoker Ochoa Becerra number of grandchildren Meet Becerra personal history of marijuana use no Karl Wyman MD drug use no Karl Wyman M D alcohol use no Karl Wyman M D smoking status Never smoker Karl Wyman MD personal history of marijuana use no Tony Susannah drug use no Tony Susannah alcohol use no Tony Susannah smoking status Never smoker Tony Ferraroina ri personal history of marijuana use no Julia Ventimiglia [employer] drug use no Julia Ventimig heidi [employer] alcohol use no Julia Ventimig heidi [employer] smoking status Never smoker Julia Ventim iglia [employer] FUNCTIONAL STATUS Date Observation Value Provider HRA, CV Assess/Plan, Angina (inactive) Management Plan continue current therapy Karl Wyman MD HRA, CV Assess/Plan, Angina (inactive) Management Plan continue current therapy Karl Wyman MD HRA, CV Assess/Plan, Angina (inactive) Management Plan continue current therapy Karl Wyman MD HRA, CV Assess/Plan, Angina (inactive) Management Plan continue current therapy Kvng Jenkins MD HRA, CV Assess/Plan, Angina (inactive) Management Plan continue current therapy Karl Wyman MD HRA, CV Assess/Plan, Angina (inactive) Management Plan continue current therapy Karl Wyman MD HRA, CV Assess/Plan, Angina (inactive) Management Plan continue current therapy Karl Wyman MD HRA, CV Assess/Plan, Angina (inactive) Management Plan continue current therapy Ochoa Becerra HRA, CV Assess/Plan, Angina (inactive) Management Plan continue current therapy Ochoa Becerra HRA, CV Assess/Plan, Angina (inactive) Management Plan continue current therapy Karl Wyman MD HRA, CV Assess/Plan, Angina (inactive) Management Plan continue current therapy Tony Davalos HRA, CV Assess/Plan, Angina (inactive) Management Plan continue current therapy Julia Giles [employer] INSURANCE PROVIDERS Payer name Policy type / Coverage type Becky red constitution party ID [place] [employer] Medicare [id number] [facility] [id number] ADVANCE DIRECTIVES Name Date DISCUSSED - NO DECISION MADE TREATMENT PLAN Date Name Performer :pro 1130 ef 35 Karl Wyman MD Cardiology: c ardiovented Karl Wyman MD Cardiology: 1 5% PVC burden, may not been true PVCs due to presence of AFIB Karl Wyman MD Cardiology Karl Wyman MD Cardiology: i ma open to lad, 55% cx in stent stent with neg ifr 24 , rca is smlall and 100% f ree radial closed p et 24 abnl cath His updated medication list for this problem includes: Nitroglycerin 0.4 Mg Tablet, Sublingual (Nitroglycerin) Warfarin 5 Mg Tablet (Warfarin) ..... Take 1 1/2 tablet by mouth every evening Dipyridamole 75 Mg Tablet (Dipyridamole) ..... Take 1 tablet by mouth four times a day Karl Wyman MD Cardiology:3.3 irnm todapedro m ild ai Karl Wyman MD Cardiology Karl Wyman MD Cardiology: 1 9 Karl Wyman MD Cardiology: s evre with mild ai Karl Wyman MD Cardiology: p ro 920 ef 35 Karl Wyman MD Cardiology: n eg pft N EG BRAIN CT Karl Wyman MD :sevre with mild ai Karl bryant MD :pro 920 ef 35 Karl Wyman MD :19 Karl Wyman MD Cardiology Karl Wyman MD Cardiology: n eg o and p, not do to ozempoci Karl Wyman MD Cardiology Karl Wyman MD Cardiology Karl Wyman MD Cardiology Karl Wyman MD Cardiology:steven open to lad, 55% cx stemnt with neg ifr 24 , rca is smlall and 100% pet 24 abnl cath 08, llima to lad, and dx, cx stent open non dom righ 90% f ree radial clses Karl Wyman MD Cardiology: c ardiovented Karl Wyman MD Cardiology: 3 1 Karl Wyman MD Cardiology: n eg pft N EG BRAIN CT Kalr Wyman MD Cardiology: e f 55, pro 920 Karl Wyman MD :ef 55, pro 920 Karl Wyman MD Cardiology:cardiovented Karl fernando MD Cardiology: 5 .9 Karl Wyman MD Cardiology: u p to date with colon Karl Wyman MD Cardiology: H is updated medication list for this problem includes: Carvedilol 3.125 Mg Tablet (Carvedilol) ..... Take 1 tablet by mouth twice a day BP today: 120/78 P rior BP: 138/82 (06/19/2024) Karl Wyman MD Cardiology Karl Wyman MD Cardiology:pet 24 ab nl cath 08, llima to lad, and dx, cx stent open non dom righ 90% f ree radial clses Karl Wyman MD Cardiology: n eg pft N EG BRAIN CT Karl Wyman MD Cardiology: 1 5% PVC burden, may not been true PVCs due to presence of AFIB Karl Wyman MD Cardiology:candi fernando MD Cardiology Karl Wyman MD Cardiology:upt to 55, pro 2300 H fransisco Wyman MD Cardiology Kvng Jenkins MD Cardiology Kvng Jenkins MD Cardiology Kvng Jenkins MD Cardiology Kvng Jenkins MD Cardiology Karl Wyman MD Cardiology: 3 1 Karl Wyman MD Cardiology Karl Wyman MD Cardiology Karl Wyman MD Cardiology: 5 .9 aKrl Wyman MD Cardiology Karl Wyman MD Cardiology:up to 55 p ro 2300 e f 43% Karl Wyman MD Cardiology: u p to date with colon Karl Wyman MD Cardiology: p et 24,large defect fixed, some reversibliey c ath 08, baltazar to lad and dx, cx stnet open nod dom righ 90% Karl Wyman MD Cardiology:sevre mr by maryse p ap 30, avr good, mod to severe mr and mild ai and mild tr Karl Wyman MD Cardiology: c chaitanya 05/2024 Karl Wyman MD Cardiology: n eg pft N EG BRAIN CT Karl Wyman MD Cardiology: 3 1 Karl Wyman MD Cardiology: u p to date with colon Karl Wyman MD Cardiology: 5 .9 Karl Wyman MD Cardiology Karl Wyman MD Cardiology: p ro 2300 e f 43% Karl Wyman MD Cardiology: A F burden 97% from 03/10 Karl Wyman MD Cardiology Karl Wyman MD Cardiology:pet 24,la rge defect fixed, some reversibliey c ath 08, baltazar to lad and dx, cx stnet open nod dom righ 90% Karl Wyman MD Cardiology:pap 30, a vr good, mod to severe mr and mild ai and mild tr Karl Wyman MD Cardiology: n eg pft N EG BRAIN CT Karl Wyman MD :31 Karl Wyman MD Electrophysiology Saulius Kalvai herb SNYDER Electrophysiology Saulius Kalvai tis MD Cardiology: 3 0 Karl Wyman MD Cardiology Karl Wyman MD Cardiology:up to date with colon Karl Wyman MD Cardiology:pro 2300 e f 43% Karl Wyman MD Cardiology Karl Wyman MD Cardiology:cath 08, baltazar to lad and dx, cx stnet open nod dom righ 90% Karl Wyman MD Cardiology:5.9 Karl Wyman MD Cardiology: 2 4 Karl Wyman MD Cardiology:pap 30, a vr goo but has mod to severe mr and mild ai and milt tr Karl Wyman MD Cardiology:neg pft N EG VIT D AND BRAIN CT Karl Wyman MD Cardiology:neg o and p, not do t o ozempoci Karl Wyman MD Electrophysiology: E cho was done 12/2023 showing EF 43%, mod LVH, mod LAE, mod to severe MR, normal functioning mechanical aortic valve prosthesis. Mild aortic valve regurgitation. Ochoa Becerra Electrophysiology:Echo EF 43% fr om 12/2023 Ochoa Becerra Electrophysiology:AF burden 97% from 03/10 Ochoa Becerra Electrophysiology: B P today: 126/76 P rior BP: 172/80 (02/24/2024) Ochoa Becerra Electrophysiology:Pt denies any CP or SOB. Ochoa Becerra Electrophysiology:ca nnot control A> fib without a .pacemaker Orders: [id number] MOD 45-59 min (CPT-[id number]) Meet Naranjo MD Electrophysiology:wo re holter in Dec which revealed AFIB 100% avg rate 67 bpm. 7 runs of non sustained VT, 15% PVC burden. U nclear how long he has been in AFIB, he had decreased EF, he has mod to severe MR, I recommend BiV PCM implant for synchrony and consider Cardioversion afterwards given LAE, LV hypokinesis, and presence of aortic mechanical valve, he has mod to severe MR, and HF with LV dysfunction with EF of 43%. Pt is symptomatic H is updated medication list for this problem includes: Warfarin 5 Mg Tablet (Warfarin) ..... Take 1 tablet by mouth every evening except on , th, sat and sun take 1 1/2 tab Warfarin 1 Mg Tablet (Warfarin) ..... Take 1 tablet by mouth every evening take on tue-tue-tue only Isosorbide Mononitrate 30 Mg Tablet Extended Release 24 Hr (Isosorbide mononitrate) ..... One tab in am Dipyridamole 75 Mg Tablet (Dipyridamole) ..... 1 tablet by mouth four times a day Nitroglycerin 0.4 Mg Tablet, Sublingual (Nitroglycerin) Meet Naranjo MD Electrophysiology:15 % PVC burden, may not been true PVCs due to presence of AFIB Ochoa Becerra Electrophysiology:wo re holter in Dec which revealed AFIB 100% avg rate 67 bpm. 7 runs of non sustained VT, 15% PVC burden. U nclear how long he has been in AFIB, he had decreased EF, he has mod to severe MR, I recommend BiV PCM implant for synchrony and consider Cardioversion afterwards given LAE, LV hypokinesis, and presence of aortic mechanical valve, he has mod to severe MR, and HF with LV dysfunction with EF of 43%. Pt is symptomatic and would benefit from Biv PCM for optimal treatment of his AFIB and CHF. Ochoa Becerra Electrophysiology: H is updated medication list for this problem includes: Valsartan 160 Mg Tablet (Valsartan) ..... One tab every 12 hours Jardiance 10 Mg Tablet (Empagliflozin) ..... Take 1 tablet by mouth daily Ochoa Becerra Electrophysiology: B P today: 172/80 P rior BP: 135/83 (01/12/2024) His updated medication list for this problem includes: Torsemide 20 Mg Tablet (Torsemide) ..... One tab as needed Valsartan 160 Mg Tablet (Valsartan) ..... One tab every 12 hours Ochoa Becerra Electrophysiology:Ec ho was done 12/2023 showing EF 43%, mod LVH, mod LAE, mod to severe MR, normal functioning mechanical aortic valve prosthesis. Mild aortic valve regurgitation. Ochoa Becerra Electrophysiology: c ath 08, juan to lad and sx open cx stent open , non dom righ 90% February 24, 2024 n o angina at this time H is updated medication list for this problem includes: Warfarin 5 Mg Tablet (Warfarin) ..... Take 1 tablet by mouth every evening except on , , sat and sun take 1 1/2 tab Warfarin 1 Mg Tablet (Warfarin) ..... Take 1 tablet by mouth every evening take on tue-tue-tue only Isosorbide Mononitrate 30 Mg Tablet Extended Release 24 Hr (Isosorbide mononitrate) ..... One tab in am Dipyridamole 75 Mg Tablet (Dipyridamole) ..... 1 tablet by mouth four times a day Nitroglycerin 0.4 Mg Tablet, Sublingual (Nitroglycerin) Ochoa Becerra :NEG VIT D AND BRAIN CT Karl fernando MD :24 Karl Wyman MD :5.9 Karl Wmyan MD :EF43, PRO 2250 Karl Wyman MD Cardiology Karl Wyman MD Cardiology:neg brain ct Karl fernando MD Cardiology:6 Karl Wyman MD Cardiology:The patie nt is using CPAP on a regular basis. The patient has been benefiting from therapy and should continue use. Karl Wyman MD Cardiology:15% pvc Karl Wyman MD Cardiology:cath 08, juan to lad and sx open cx stent open , non dom righ 90% Karl Wyman MD Cardiology:ef 43 p ro 1900 Karl Wyman MD Cardiology:due to ozempci ? Ronda Wyman MD Cardiology: H is updated medication list for this problem includes: Rosuvastatin 10 Mg Tablet (Rosuvastatin) Karl Wyman MD Cardiology: 2 12 Karl Wyman MD Cardiology:pap 30 a vr good but now has mod to severe mr adn midl ai and mild tr Karl Wyman MD :30 Karl Wyman MD :avr good but now arreguin s mod to severe mr adn midl ai and mild tr Karl Wyman MD :pro 1900 Karl Wyman MD Cardiology Tonyhernán Davalos Cardiology: EKG show s Afib with very slow ventricular response. We will stop sotalol. Will obtain telecentry and lab work Otnyhernán Davalos Cardiology: H is updated medication list for this problem includes: Metformin 1,000 Mg Tablet (Metformin) ..... One tab daily Valsartan 160 Mg Tablet (Valsartan) ..... One tab every 12 hours Jardiance 10 Mg Tablet (Empagliflozin) ..... Take 1 tablet by mouth daily Tony Davalos Cardiology: B P today: 136/86 P rior BP: 148/77 (10/06/2023) The following medications were removed from the medication list: Sotalol 80 Mg Tablet (Sotalol) ..... One tab every 12 hours His updated medication list for this problem includes: Torsemide 20 Mg Tablet (Torsemide) ..... One tab as needed Valsartan 160 Mg Tablet (Valsartan) ..... One tab every 12 hours Tony Davalos Cardiology: H x of CABG and stents in the past l ast echo showed EF of 60-65% The following medications were removed from the medication list: Sotalol 80 Mg Tablet (Sotalol) His updated medication list for this problem includes: Dipyridamole 75 Mg Tablet (Dipyridamole) ..... 1 tablet by mouth four times a day Sotalol 80 Mg Tablet (Sotalol) Nitroglycerin 0.4 Mg Tablet, Sublingual (Nitroglycerin) Isosorbide Mononitrate 30 Mg Tablet Extended Release 24 Hr (Isosorbide mononitrate) Tony Davalos Cardiology:Pt came t [facility] for IN[facility] check, however complained to nurse of SOB, orthopnea and dizziness. Diuretics have been on hold for a few months. Exact reason unknown. Will obtain echo. EKG shows Afib with very slow ventricular response. We will stop sotalol. Will obtain telecentry and lab work Tony Davalos :212 Karl Wyman MD :6 Karl Wyman MD Cardiology: H is updated medication list for this problem includes: Jardiance 10 Mg Tablet (Empagliflozin) ..... Take 1 tablet by mouth daily Valsartan 160 Mg Tablet (Valsartan) Metformin 1,000 Mg Tablet (Metformin) [facility] Cardiology:untreated with AHI of 8=48 and oxygen saturation dropping to 80% w ill refer to pulmonary for further management [facility] Cardiology:with EF o f 60% on last echo l ast pBNP 1900 w ill add Jardiance in setting of diastolic CHF, CAD and DM The following medications were removed from the medication list: Furosemide 20 Mg Tablet (Furosemide) Sotalol 80 Mg Tablet (Sotalol) His updated medication list for this problem includes: Dipyridamole 75 Mg Tablet (Dipyridamole) ..... 1 tablet by mouth four times a day Sotalol 80 Mg Tablet (Sotalol) Torsemide 20 Mg Tablet (Torsemide) Nitroglycerin 0.4 Mg Tablet, Sublingual (Nitroglycerin) Isosorbide Mononitrate 30 Mg Tablet Extended Release 24 Hr (Isosorbide mononitrate) Valsartan 160 Mg Tablet (Valsartan) [facility] Cardiology: T he following medications were removed from the medication list: Furosemide 20 Mg Tablet (Furosemide) Sotalol 80 Mg Tablet (Sotalol) His updated medication list for this problem includes: Sotalol 80 Mg Tablet (Sotalol) Torsemide 20 Mg Tablet (Torsemide) Valsartan 160 Mg Tablet (Valsartan) Julia Giles [facility] Cardiology:Hx of CAB G and stents in the past l ast echo showed EF of 60-65% w ill obtain full report and any recent cardiac test (stress and cath) w ill stop asa as on warfarin T he following medications were removed from the medication list: Sotalol 80 Mg Tablet (Sotalol) His updated medication list for this problem includes: Dipyridamole 75 Mg Tablet (Dipyridamole) ..... 1 tablet by mouth four times a day Sotalol 80 Mg Tablet (Sotalol) Nitroglycerin 0.4 Mg Tablet, Sublingual (Nitroglycerin) Isosorbide Mononitrate 30 Mg Tablet Extended Release 24 Hr (Isosorbide mononitrate) Julia Giles [facility] Cardiology:currently in afib r ate is controlled O n sotalol with normal Egfr on last labs Q TC 398 today o n warfarin for AC G iven that patient symptomatic with afib will plan for CV. INR 1.8 today so will plan after therapuetic R isk/benefits discussed with patient and understanding verbalized. 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 1 tablet by mouth four times a day Sotalol 80 Mg Tablet (Sotalol) Nitroglycerin 0.4 Mg Tablet, Sublingual (Nitroglycerin) Isosorbide Mononitrate 30 Mg Tablet Extended Release 24 Hr (Isosorbide mononitrate) Julia Giles [facility] Date Name PROTHROMBIN TIME WIT H INR PROTHROMBIN TIME WIT H INR PROBNP, N TERMINAL BASIC METABOLIC PANE L W/EGFR CXR- PA/Lat Holter Monitor [address] Angio Chest (Aort a) CT Angio, abdomen an d pelvis Holter Monitor 24 Hr Complete Echo LIPID PANEL PROBNP, N TERMINAL PROTHROMBIN TIME WIT H INR CBC (INCLUDES DIFF/P LT) BASIC METABOLIC PANE L W/EGFR Holter Monitor [address] Angio Coronaries PROBNP, N TERMINAL Holter Monitor 24 Hr RPM (remote patient monitoring) Complete Echo M[facility] - [facility] Complete Echo Holter Monitor 24 Hr Renal Artery Duplex RPM (remote patient monitoring) MAGNESIUM BASIC METABOLIC PANE L W/EGFR PROTHROMBIN TIME WIT H INR Stress Cardiac PET-C T Complete Echo PARTIAL THROMBOPLAST IN TIME, ACTIVATED PROTHROMBIN TIME WIT H INR LIPID PANEL CBC (INCLUDES DIFF/P LT) BASIC METABOLIC PANE L W/EGFR Carotid Duplex Bilat eral DLCO - 13261 FRC - 68332 FVC - 66441 CXR- PA/Lat FOLATE, SERUM VITAMIN B12 IRON AND TOTAL IRON BINDING CAPACITY FERRITIN CBC (INCLUDES DIFF/P LT) Stress Cardiac PET-C T TSH, free T4, total T3 PROBNP, N TERMINAL BASIC METABOLIC PANE L W/EGFR Complete Echo CRP, high sensitivit y LIPID PANEL Lipoprotein (a) BASIC METABOLIC PANE L W/EGFR Microalb/Creatinine Urine, Random HEMOGLOBIN A1c Monitor - Telemetry (Mobile Cardiac) Complete Echo PROTHROMBIN TIME WIT H INR CRP, high sensitivit y Microalb/Creatinine Urine, Random LIPID PANEL Lipoprotein (a) TSH, free T4, total T3 FOLATE, SERUM Vitamin D, 25-Hydrox y IRON AND TOTAL IRON BINDING CAPACITY FERRITIN CBC (INCLUDES DIFF/P LT) HISTORY OF PROCEDURES Procedure Date Procedure Name Provider Procedure Notes S tatus Gamal Pacheco MD complet ed Gamal Justin MD completed Gamal Wyman MD complete d Gamal Pacheco MD complet ed Gamal Escudero MD compl eted Gamal Herbert MD complete d Gamal Herbert MD complete d Gamal Goetz RN completed Gamal Wyman MD complete d Complex e/m visit ad d on Karl Wyman MD completed Gamal Naranjo MD comp leted Gamal Wyman MD complete d Gamal Wyman MD complete d Gamal Ulloa RN completed Gamal Ulloa RN completed Complex e/m visit ad d on Karl Wyman MD completed Gamal Wyman MD complete d Gamal Wyman MD complete d Gamal Wyman MD complete d Gamal Ulloa RN completed Gamal Wyman MD complete d Complex e/m visit ad d on Karl Wyman MD completed Gamal Wyman MD complete d Complex e/m visit ad d on Karl Wyman MD completed Gamal Wyman MD complete d Complex e/m visit ad d on Karl Wyman MD completed EKG Karl Wyman MD complete d Gamal Maldonado MD completed Protime Chay Goetz RN completed Protjonn Naranjo MD comp leted Protjonn Wyman MD complete d Protjonn Naranjo MD comp leted Protjonn Naranjo MD comp leted Gamal Justin MD completed Protime Rhina Escudero MD compl eted Gamal Wyman MD complete d ARTUR Naranjo MD comp leted Gamal Maldonado MD completed Gamal Herbert MD complete d Gamal Wyman MD complete d Spirometry Karl Wyman MD complete d FVC / MVV - 96096 Karl Wyman MD c ompleted SpO2 w/o 6min walk/titration Karl Wyman MD completed SVC - 57714 Karl Wyman MD complet ed DLCO - 68649 Karl Wyman MD comple venus Gamal Pacheco MD complet ed Gamal Whiting MD completed Gamal Pacheco MD complet ed Gamal Wyman MD complete d Gamal Wyman MD complete d Gamal Herbert MD complete d Gamal Maldonado MD completed ARTUR Wyman MD complete d Gamal Goetz RN completed Phone Anti-Coag Management Karl Wyman MD completed Gamal Maldonado MD completed Gamal Maldonado MD completed Gamal Herbert MD complete d Gamal Webb MD complet ed Gamal Maldonado MD completed Gamal Wyman MD complete d Gamal Wyman MD complete d Gamal Whiting MD completed Gamal Wyman MD complete d
--- OUTSIDE RECORDS SUMMARY | 2025-01-10 08:12 | XMS_ITS | Clinical Summary ---
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 Name Role Phone Unavailable Primary Care Provider Unavailabl e Social History Tobacco Use Types Packs/Day Years Used Date Smoking Tobacco: Never Assessed Sex and Gender Information Value Date Recorded Sex Assigned at Not on file Legal Sex Male 8:45 AM CDT Gender Identity Not on file Sexual Orientation Not on file Plan of Treatment Health Maintenance Due Date Last Done Comments Colorectal Cancer Screening Colonoscopy (10 Years) 1950 Hepatitis C 01/30/1968 DTaP, Tdap and Td Vaccines ( 1 - Tdap) 1969 Zoster Vaccines (1 of 2) 01/30/2000 Annual Medicare Wellness Visit 2015 Pneumococcal Vaccine: 65+ Ye ars (1 of 1 - PCV) 2015 COVID-19 Vaccine ( - 2023-2 5 season) 2024 Influenza Adult (#1) 2024 RSV Immunization or 60+ Years (1 - 1-dose 75+ series) 2025 Meningococcal B Vaccine Aged Out No l onger eligible based on patient's age to complete this topic Meningococcal Vaccine Aged Out No francisco rani eligible based on patient's age to complete this topic RSV Immunizations Under 20 Months Aged Out No longer eligible based on patient's age to complete this topic Insurance MEDICARE [facility]
--- OUTSIDE RECORDS SUMMARY | 2025-01-10 08:12 | XMS_ITS | Data Portability ---
Author Organization [facility] Address [address] [place] [id number] Assessment No assessment recorded. Plan of Treatment Reminders Order Date Submit Date Provider Last Modified By Organization Details Last Modified Time Details Appointments None record ed. Lab None record ed. Referral None record ed. Procedures None record ed. Surgeries None record ed. Imaging None record ed. Medication Orders None record ed. Patient TargetsNo targets recorded. Patient InstructionsNo instructions recorded. Reason for Referral None Reported. Medical Equipment None Reported. Vitals None Recorded Social History None recorded. Functional Status None recorded. Mental Status None recorded. Family History Nothing Reported. Medical History No medical history recorded. Immunizations Vaccine Type Date Status Note Provider Nam e and Address Organization Details Recorded Time COVID-19, mRNA, LNP-S, PF, 100 mcg/0.5mL dose or 50 mcg/0.25mL dose 12/12/2020 completed WAYNE Nuñez [place] [facility] 12/12/2020 14:14:04 COVID-19, mRNA, LNP-S, PF, 100 mcg/0.5mL dose or 50 mcg/0.25mL dose 01/12/2021 completed Emily Carmona MA [facility] 01/12/2021 16:25:39 Past Encounters Encounter ID Performer Location Encounter Start Date Encounter Closed Date Diagnosis/Indication Diagnosis SNOMED-CT Code Diagnosis ICD10 Code Diagnosis Note [id number] ISAI Valdez 14 IM [address] [place] [id number] 12/12/2020 12:21:04 12/12/2020 18:38:06 Administration of SARS-CoV-2 antigen vaccine [id number] Z23 [id number] ISAI Valdez 14 [address] [place] [address] 01/09/2021 12:02:47 01/12/2021 07:55:43 Administration of SARS-CoV-2 antigen vaccine [id number] Health Concerns Section Related Observation LastModified by Organization Detai ls LastModified Time None Recorded Concern Status LastModified by Organization Details LastModified Time None Recorded Advance Directives Directive None Recorded Payers Encounter Date Sequence Insurance Name Policy Number Policy Umana Covered Member ID Umana Member ID Guarantor Name 12/12/2020 1 [place] Reggie Nevarez [id number] Reggie Nevarez 12/12/2020 2 [place] [id number] Reggie Nevarez [id number] Reggie Nevarez 01/09/2021 1 [place] Reggie Nevarez [id number] Reggie Nevarez 01/09/2021 2 [place] [id number] Reggie Nevarez [id number] Reggie Nevarez
--- OUTSIDE RECORDS SUMMARY | 2025-01-10 08:12 | XMS_ITS | Referral Summary ---
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 Gender Identity Not on file Sexual Orientation Not on file Last Filed Vital Signs Vital Sign Reading Time Taken Comments Blood Pressure 128/84 10/02/2024 12:46 PM RESIDENTIAL LEASING AGENT Pulse 88 10/02/2024 12:46 PM RESIDENTIAL LEASING AGENT Temperature 36.7 C (98.1 F) 08/17/2024 9:05 AM CDT Respiratory Rate 16 10/02/2024 12:46 PM RESIDENTIAL LEASING AGENT Oxygen Saturation 98% 10/02/2024 12:46 PM RESIDENTIAL LEASING AGENT Inhaled Oxygen Concentration - - Weight 113.4 kg (250 lb) 10/02/2024 12:46 PM RESIDENTIAL LEASING AGENT Height 177.8 cm (5' 10 ) 10/02/2024 12:46 PM RESIDENTIAL LEASING AGENT Body Mass Index 35.87 10/02/2024 12:46 PM RESIDENTIAL LEASING AGENT Plan of Treatment Not on file Medical Devices Implanted Type Area Batch Operator Device Identifier Shelf Expiration Date Model / [...] Spears MD - 08/17/2024 8:17 AM CDT [facility] GI ENDOSCOPY Patient Name: Reggie Nevarez Procedure Date: 08/17/2024 8:17 AM Date of : 1950 Admit Type: Outpatient Age: 74 Gender: Male Attending MD: Meryl Spears M.D. Room: [facility] ENDOSCOPY ROOM 05 Note Status: [...] polypectomy, one hemostaticclip was successfully placed. 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 Therewas no bleeding at the end of [...] Resected and retrieved. Clip was placed. 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 - Diverticulosis in the left colon. Biopsied. - The distal rectum and anal verge are normal on retroflexion view. Recommendation: - Resume previous diet. - Continue present medications. - Await pathology results. Meryl Spears M.D. Meryl Spears M.D. 08/17/2024 9:11:17 AM . Number of Addenda: 0 Note Initiated On: 08/17/2024 8:17 AM Recognized by the [employer] for promoting quality in endoscopy us Meryl Spears MD ENDOSCOPY PROCEDURES Kim l Result * eGFR (07/29/2023 10:21 AM CDT) eGFR >90 90 - 130 mL/min/1. 73 m2 [facility]STORE[facility] Comment: Interpretive Data Reference Interval Normal >/= [...] MD LAB BLOOD ORDERABLES Final Result [facility]ST[facility] Department [place] [address] * (ABNORMAL) Serum lipid panel (04/02/2016 3:08 [...] Recently Relevant to Health Maintenance Insurance MEDICARE [facility] MEDICARE [facility] MEDICARE [facility] BLUE CROSS MEDICARE SUPPLEMENT Care Teams Charge Poster Relationship Specialty Start Date End Date Bennie Nova MD [address] [place] [address] PCP - General Cardiovascular Disease 06/02/21
--- OUTSIDE RECORDS SUMMARY | 2025-01-10 08:12 | XMS_ITS | Data Portability ---
Author Organization [place] - [facility], Main Office Address [address] [place] [address] Care Team Providers Care Forest Examiner Name Role Phone TIANA PATTERSON Primary Care Provider [phone] TIANA PATTERSON Referring Provider [phone] STELLA WYMAN Pharmacovigilance Scientist GIGI RUIZ Time Clock Inspector Assessment Encounter Date Assessment Date Assessment LastModified by Organization Details LastModified Time 06/05/2024 06/05/2024 10/20/2023: A1C 5.8 PSA 0.72 Gluc 100 TG 176 HGB 12.7 Urine micro alb 65.2 01/13/2024: A1C 5.9 Urine micro alb 24.6 Glob 2.4L, TP WNL 04/29/2024: A1C 6.2 04/30/2024: TP 5.8L, glob 2.4L HGB 12.7 05/03/2024: VIT D 26.4 Urine micro alb30.9 Not available 06/04/2024 19:17:35 09/04/2024 09/04/2024 10/20/2023: A1C 5.8 PSA 0.72 Gluc 100 TG 176 HGB 12.7 Urine micro alb 65.2 01/13/2024: A1C 5.9 Urine micro alb 24.6 Glob 2.4L, TP WNL 04/29/2024: A1C 6.2 04/30/2024: TP 5.8L, glob 2.4L HGB 12.7 05/03/2024: VIT D 26.4 Urine micro alb30.9 08/31/2024: A1C 5.9 VIT D 24.1 Gluc 107, TP 6.0, Glob 2.3 TG 168 Urine micro alb 19.9 Not available 09/03/2024 18:04:45 12/06/2024 12/06/2024 10/20/2023: A1C 5.8 PSA 0.72 Gluc 100 TG 176 HGB 12.7 Urine micro alb 65.2 01/13/2024: A1C 5.9 Urine micro alb 24.6 Glob 2.4L, TP WNL 04/29/2024: A1C 6.2 04/30/2024: TP 5.8L, glob 2.4L HGB 12.7 05/03/2024: VIT D 26.4 Urine micro alb30.9 08/31/2024: A1C 5.9 VIT D 24.1 Gluc 107, TP 6.0, Glob 2.3 TG 168 Urine micro alb 19.9 11/22/2024: Dr Spears Glob 2.2L, TP WNL Hep panel Neg Not available 12/06/2024 12:26:15 Plan of Treatment Reminders Order Date Submit Date Provider Last Modified By Organization Details Last Modified Time Details Appointments Any 15 2024 08:30A Warner vasquez MD Not available Not available Not available Lab urinalysi s, dipstick 2024 025 [facility] [place], [address] [facility], [address], [place], [address], 12/17/2024 10:49:09 lipid panel, serum [address] (Lab), [address] [place], [address], 12/06/2024 09:45:12 CBC w/ auto diff [address] (Lab), [address] [place], [address], 12/06/2024 09:45:12 CMP, serum or plasma [address] (Lab), [address] [place], [address], 12/06/2024 09:45:13 TSH, serum or plasma [address] (Lab), [address] [place], [address], 12/06/2024 09:45:13 vitamin D, 25-hydrox y, total, serum [address] (Lab), [address] [place], [address], 12/06/2024 09:45:13 glycohemo globin, total, blood [address] (Lab), [address] [place], [address], 12/06/2024 09:45:12 microalbu min, urine [address] (Lab), [address] [place], [address], 12/06/2024 09:45:12 lipid panel, serum [address] (Lab), [address] [place], [address], 09/10/2024 10:02:41 CBC w/ auto diff [address] (Lab), [address] [place], [address], 09/10/2024 10:02:41 CMP, serum or plasma [address] (Lab), [address] [place], [address], 09/10/2024 10:02:41 TSH, serum or plasma [address] (Lab), [address] [place], [address], 09/10/2024 10:02:41 vitamin D, 25-hydrox y, total, serum [address] (Lab), [address] [place], [address], 09/10/2024 10:02:41 glycohemo globin, total, blood [address] (Lab), [address] [place], [address], 09/10/2024 10:02:41 microalbu min, urine [address] (Lab), [address] [place], [address], 09/10/2024 10:02:41 lipid panel, serum 2023 [facility] (Lab), [address] [place], [address], 07/02/2024 14:54:00 CBC w/ auto diff 2023 [facility] (Lab), [address] [place], [address], 07/02/2024 14:34:27 CMP, serum or plasma 2023 [facility] (Lab), [address] [place], [address], 08/31/2024 11:43:26 TSH, serum or plasma 2023 024 [facility] (Lab), [address] [place], [address], 08/31/2024 12:03:05 vitamin D, 25-hydrox y, total, serum [email or web address] [place] [address] (Lab), [address] [place], [address], 12/03/2024 12:43:14 glycohemo globin, total, blood 2023 024 [facility] (Lab), [address] [place], [address], 09/03/2024 14:39:57 microalbu min, urine 2023 024 [facility] (Lab), [address] [place], [address], 08/31/2024 11:40:26 Referral nephrolog ist referral - Please call patient to schedule an appointme nt. Thank you. 2024 025 ROSA Ruiz MD (Nephrology, [address] [facility], [address], [place], [address], 01/09/2025 04:24:45 pulmonolo gist referral - Please call patient to schedule an appointme nt. Thank you. 2024 025 FLETCHER Aldridge FACE CLEANER-C, [address] [facility], [address], [place], [address], 12/10/2024 15:15:25 urologist referral - Please call patient to schedule an appointme nt. Thank you. 2024 025 [email or web address] Rafael Mares, [address] [facility], [address], [place], [address], 12/10/2024 15:04:30 podiatris t referral - Please call patient to schedule an appointme nt. Thank you. ( I believe this patient is already being followed by your office) 2024 025 FLETCHER Wu DPM, [address], [address], [place], [address], 12/10/2024 14:50:39 cardiolog ist referral - Please call patient to schedule an appointme nt. Thank you. 2024 025 FLETCHER Birmingham MD, [address], [address], [place], [address], 01/09/2025 15:36:36 nephrolog ist referral 2023 024 tammy Ruiz MD (Nephrology, [address], [address], [place], [address], 09/10/2024 10:02:41 pulmonolo gist referral - Please call patient to schedule. 2023 024 [email or web address] Pham MIXONP-C, [address] [facility], [facility] [address], [place], [address], 09/21/2024 13:26:19 urologist referral - Please call patient to schedule. 2023 024 ROSA Mares, [address] [facility], [facility] [address], [place], [address], 09/12/2024 16:30:27 podiatris t referral - Please call patient to schedule. 2023 024 [email or web address] Wu DPM, [address], [address], [place], [address], 11/15/2024 09:52:52 cardiolog ist referral 2023 024 tammy Wyman MD, [address] [facility], [facility] [address], [place], [address], 09/10/2024 10:02:41 nephrolog ist referral 2023 024 [email or web address] Gigi Ruiz MD (Nephrology, [address], [address], [place], [address], 12/03/2024 12:43:33 pulmonolo gist referral 2023 024 [email or web address] Jorge Tyson MD, [address] [facility], [place], [address], 10/25/2024 18:26:15 podiatris t referral 2023 024 [email or web address] Marcelino Wu DPM, [address], [address], [place], [address], 10/25/2024 18:24:16 cardiolog ist referral 2023 024 [email or web address] Stella Wyman MD, [address], [address], [place], [address], 10/25/2024 18:24:43 Procedures None recorded. Surgeries None recorded. Imaging None recorded. Medication Orders tamsulosi n 0.4 mg capsule 2024 025 [facility]acy #[id number], [address], [place], [address], 12/14/2024 16:12:42 tamsulosi n 0.4 mg capsule 2023 024 [facility] #[id number], [address], [place], [address], 06/05/2024 15:26:30 Patient TargetsNo targets recorded. Patient Instructions Encounter Date Encounter Id Patient Instructions Last Modified By Organization Details Last Modified Time 09/12/2024 [id number] 1. The patient i s already taking tamsulosin and finasteride 2. I really do not think there is anything I can offer except limit his fluids but otherwise no other recommendations and just follow up as needed Not available 09/12/2024 16:15:42 12/14/2024 [id number] 1. BPH with obstruction 2. I will increase his tamsulosin to 2 capsules a day he will take it at 6:00 p.m. 3. He can either have his primary care refill the prescription or he can come back here in 1 year Not available 12/14/2024 16:12:13 Reason for Referral Channel Marketing Coordinator Referral for Type 2 diabetes mellitus without complication Referring Physician: iTana Patterson Internal Medicine, Encounter Date: 06/05/2024 Pharmacovigilance Scientist Referral for Co ronary arteriosclerosis Referring Physician: Tiana Patterson Internal Medicine, Encounter Date: 06/05/2024 Er Rn Referral for O bstructive sleep apnea syndrome Referring Physician: Bernard Lieberman Medicine, Encounter Date: 06/05/2024 Time Clock Inspector Referral for Pr oteinuria Referring Physician: Bernard Lieberman Medicine, Encounter Date: 06/05/2024 Channel Marketing Coordinator Referral for Type 2 diabetes mellitus without complication Please call patient to schedule. Referring Physician: Bernard Lieberman, Encounter Date: 09/04/2024 Pharmacovigilance Scientist Referral for Co ronary arteriosclerosis Referring Physician: Bernard Lieberman Medicine, Encounter Date: 09/04/2024 Er Rn Referral for O bstructive sleep apnea syndrome Please call patient to schedule. Referring Physician: Bernard Lieberman Medicine, Encounter Date: 09/04/2024 Time Clock Inspector Referral for Pr oteinuria Referring Physician: Bernard Lieberman, Encounter Date: 09/04/2024 Urologist Referral for Urina ry incontinence Please call patient to schedule. Referring Physician: Bernard Lieberman Medicine, Encounter Date: 09/04/2024 Channel Marketing Coordinator Referral for Type 2 diabetes mellitus without complication Please call patient to schedule an appointment. Thank you. ( I believe this patient is already being followed by your office) Referring Physician: Tiana Patterson Internal Medicine, Encounter Date: 12/06/2024 Pharmacovigilance Scientist Referral for Co ronary arteriosclerosis Please call patient to schedule an appointment. Thank you. Referring Physician: Tiana Patterson Internal Medicine, Encounter Date: 12/06/2024 Er Rn Referral for O bstructive sleep apnea syndrome Please call patient to schedule an appointment. Thank you. Referring Physician: Tiana Patterson Internal Medicine, Encounter Date: 12/06/2024 Time Clock Inspector Referral for Pr oteinuria Please call patient to schedule an appointment. Thank you. Referring Physician: Tiana Patterson Internal Medicine, Encounter Date: 12/06/2024 Urologist Referral for Urina ry incontinence Please call patient to schedule an appointment. Thank you. Referring Physician: Tiana Patterson Internal Medicine, Encounter Date: 12/06/2024 Results Created Date Observation Date Name Description Value Unit Range Abnormal Flag Note LastModifiedBy Organization Detail LastModifiedTime 08/31/2008/31/2024 CBC/C OMPLE TE BLD COUNT W/DIF F white blood cells 7.4 x10'3 /uL 4.2-10 .8 Not Available [facility] (Lab) [address] [place], [address], 08/31/2024 11:18:30 08/31/20 24 08/31/2024 CBC/C OMPLE TE BLD COUNT W/DIF F red blood cells 4.90 x10'6 /uL 4.10-5 .80 Not Available [facility] (Lab) [address] [place], [address], 08/31/2024 11:18:30 08/31/20 24 08/31/2024 CBC/C OMPLE TE BLD COUNT W/DIF F hemoglobin 14.9 g/dL 13.2-1 7.0 Not Available [facility] (Lab) [address] [place], [address], 08/31/2024 11:18:30 08/31/20 24 08/31/2024 CBC/C OMPLE TE BLD COUNT W/DIF F hematocrit 45.5 % 39.3-5 0.0 Not Available [facility] (Lab) [address] [place], [address], 08/31/2024 11:18:30 08/31/2008/31/2024 CBC/C OMPLE TE BLD COUNT W/DIF F mean red cell volume 92.9 fL 80.0-9 7.0 Not Available [facility] (Lab) [address] [place], [address], 08/31/2024 11:18:30 08/31/2008/31/2024 CBC/C OMPLE TE BLD COUNT W/DIF F mean red cell hemoglobin 30.4 pg 27.0-3 3.0 Not Available [facility] (Lab) [address] [place], [address], 08/31/2024 11:18:30 08/31/2008/31/2024 CBC/C OMPLE TE BLD COUNT W/DIF F mean RBC HGB concentratio n 32.7 g/dL 31.0-3 6.0 Not Available [facility] (Lab) [address] [place], [address], 08/31/2024 11:18:30 08/31/2008/31/2024 CBC/C OMPLE TE BLD COUNT W/DIF F red cell distribution width 14.0 % 11.8-1 5.5 Not Available [facility] (Lab) [address] [place], [address], 08/31/2024 11:18:30 08/31/2008/31/2024 CBC/C OMPLE TE BLD COUNT W/DIF F platelets 151 x10'3 /uL 150-40 0 Not Available [facility] (Lab) [address] [place], [address], 08/31/2024 11:18:30 08/31/2008/31/2024 CBC/C OMPLE TE BLD COUNT W/DIF F mean platelet volume 10.0 fL 9.0-12 .4 Not Available [facility] (Lab) [address] [place], [address], 08/31/2024 11:18:30 08/31/2008/31/2024 CBC/C OMPLE TE BLD COUNT W/DIF F neutrophils 78.8 % 39.0-7 2.0 high Not Available [facility] (Lab) [address] [place], [address], 08/31/2024 11:18:30 08/31/2008/31/2024 CBC/C OMPLE TE BLD COUNT W/DIF F lymphocytes 11.8 % 16.0-4 7.0 low Not Available [facility] (Lab) [address] [place], [address], 08/31/2024 11:18:30 08/31/2008/31/2024 CBC/C OMPLE TE BLD COUNT W/DIF F monocytes 8.1 % 5.0-12 .0 Not Available [facility] (Lab) [address] [place], [address], 08/31/2024 11:18:30 08/31/2008/31/2024 CBC/C OMPLE TE BLD COUNT W/DIF F eosinophils 0.5 % 1.0-7. 0 low Not Available [facility] (Lab) [address] [place], [address], 08/31/2024 11:18:30 08/31/2008/31/2024 CBC/C OMPLE TE BLD COUNT W/DIF F basophils 0.3 % 0.0-2. 0 Not Available [facility] (Lab) [address] [place], [address], 08/31/2024 11:18:30 08/31/2008/31/2024 CBC/C OMPLE TE BLD COUNT W/DIF F immature granulocytes 0.5 % 0.00-0 .50 Not Available [facility] (Lab) [address] [place], [address], 08/31/2024 11:18:30 08/31/2008/31/2024 CBC/C OMPLE TE BLD COUNT W/DIF F neutrophils, absolute count 5.82 x10'3 /uL 1.5-8. 0 Not Available [facility] (Lab) [address] [place], [address], 08/31/2024 11:18:30 08/31/2008/31/2024 CBC/C OMPLE TE BLD COUNT W/DIF F lymphocytes, absolute count 0.87 x10'3 /uL 1.07-3 .43 low Not Available [facility] (Lab) [address] [place], [address], 08/31/2024 11:18:30 08/31/2008/31/2024 CBC/C OMPLE TE BLD COUNT W/DIF F monocytes, absolute count 0.60 x10'3 /uL 0.29-0 .99 Not Available [facility] (Lab) [address] [place], [address], 08/31/2024 11:18:30 08/31/2008/31/2024 CBC/C OMPLE TE BLD COUNT W/DIF F eosinophils, absolute count 0.04 x10'3 /uL 0.02-0 .53 Not Available [facility] (Lab) [address] [place], [address], 08/31/2024 11:18:30 08/31/20 24 08/31/2024 CBC/C OMPLE TE BLD COUNT W/DIF F basophils, absolute count 0.02 x10'3 /uL 0.01-0 .08 Not Available [facility] (Lab) [address] [place], [address], 08/31/2024 11:18:30 08/31/20 24 08/31/2024 CBC/C OMPLE TE BLD COUNT W/DIF F immature granulocytes ,absolute 0.04 x10'3 /uL 0.00-0 .05 Not Available [facility] (Lab) [address] [place], [address], 08/31/2024 11:18:30 08/31/20 24 08/31/2024 CBC/C OMPLE TE BLD COUNT W/DIF F nucleated red blood cells 0.0 % -0 Not Available [facility] (Lab) [address] [place], [address], 08/31/2024 11:18:30 08/31/20 24 08/31/2024 CBC/C OMPLE TE BLD COUNT W/DIF F NRBC# 0.00 x10'3 /uL Not Available [facility] (Lab) [address] [place], [address], 08/31/2024 11:18:30 08/31/20 24 08/31/2024 MICRO ALBUM IN RANDO M URINE microalbumin , urine 19.9 mg/L 0.0-16 .6 high Not Available [facility] (Lab) [address] [place], [address], 08/31/2024 11:40:26 08/31/20 24 08/31/2024 LIPID PANEL cholesterol 151 mg/dL 140-19 9 NIH SHANA NSUS RECOM MENDA TION FOR VICKY STERO L: ADULT CHILD LOW RISK: <200 <170 BORDE RLINE : <200- 239 ----- HIGH RISK: >240 >200 Not Available [facility] (Lab) [address] [place], [address], 08/31/2024 11:43:16 08/31/2008/31/2024 LIPID PANEL triglyceride s 168 mg/dL 0-150 high NIH SHANA NSUS REPOR T RECOM MENDA TION FOR TRIGL YCERI VIOLETTA: ADULT CHILD LOW RISK: <150 ----- BODER LINE: 150-1 99 ----- HIGH RISK: >200 ----- Not Available [facility] (Lab) [address] [place], [address], 08/31/2024 11:43:16 08/31/2008/31/2024 LIPID PANEL HDL cholesterol 45 mg/dL 40- Not Available [facility] (Lab) [address] [place], [address], 08/31/2024 11:43:16 08/31/2008/31/2024 LIPID PANEL LDL cholesterol, calculated 72 mg/dL 0-130 NIH SHANA NSUS REPOR T RECOM MENDA TIONS FOR LDL: ADULT CHILD LOW RISK <130 <110 (OPTI MAL LDL) <100 ----- BORDE RLINE : 130-1 59 ----- HIGH RISK: >160 >130 A TRIGL YCERI DE RESUL T >400 INVAL IDATE S THE CALCU LATIO N FOR LDL FRACT IONAT ION - THE LDL RESUL T WILL NOT BE REPOR SHANNAN. Not Available [facility] (Lab) [address] [place], [address], 08/31/2024 11:43:16 08/31/2008/31/2024 COMPR EHENS DEANNA METAB OLIC PANEL sodium 138 mmol/ L 137-14 5 Not Available [facility] (Lab) [address] [place], [address], 08/31/2024 11:43:26 08/31/2008/31/2024 COMPR EHENS DEANNA METAB OLIC PANEL potassium 5.0 mmol/ L 3.5-5. 1 Not Available [facility] (Lab) [address] [place], [address], 08/31/2024 11:43:26 08/31/20 24 08/31/2024 COMPR EHENS DEANNA METAB OLIC PANEL chloride 104 mmol/ L 98-107 Not Available [facility] (Lab) [address] [place], [address], 08/31/2024 11:43:26 08/31/2008/31/2024 COMPR EHENS DEANNA METAB OLIC PANEL carbon dioxide 28 mmol/ L 22-30 Not Available [facility] (Lab) [address] [place], [address], 08/31/2024 11:43:26 08/31/2008/31/2024 COMPR EHENS DEANNA METAB OLIC PANEL anion gap 11.0 mmol/ L 14-22 low Not Available [facility] (Lab) [address] [place], [address], 08/31/2024 11:43:26 08/31/2008/31/2024 COMPR EHENS DEANNA METAB OLIC PANEL glucose 107 mg/dL 70-99 high Not Available [facility] (Lab) [address] [place], [address], 08/31/2024 11:43:26 08/31/2008/31/2024 COMPR EHENS DEANNA METAB OLIC PANEL BUN 16 mg/dL 8-19 Not Available [facility] (Lab) [address] [place], [address], 08/31/2024 11:43:26 08/31/20 24 08/31/2024 COMPR EHENS DEANNA METAB OLIC PANEL creatinine 0.76 mg/dL 0.66-1 .25 Not Available [facility] (Lab) [address] [place], [address], 08/31/2024 11:43:26 08/31/2008/31/2024 COMPR EHENS DEANNA METAB OLIC PANEL GFR >60 Refer ence Range : [place] ge GFR Healt hy Adult : >60 mL/mi n/1.7 3 m2 Chron ic Kidne y Disea se: 15-60 mL/mi n/1.7 3 m2 Kidne y Failu re: <15/m L/min /1.73 m2 www.n iddk. nih.g ov The MDRD study equat ion has not been valid ated in child samia <18 years of age; pregn ant women ; the elder ly >85 years of age; or in some racia l or ethni c subgr oups, such as Hisva nics. Outsi de the valid ated tiffanie eters , estim ated GFR is less accur ate, requi ring clini christopher judgm ent on a case- by-ca se basis . Clini christopher inter preta tion for other races and ages must be made by the clini julianna. The MDRD study equat ion has not been valid ated for the evalu ation of serum creat inine relat ed to nutri elijah l statu s or medic ation usage . For perso ns <18 years of age, a pedia tric GFR calcu lator is avail able on the [facility] websi te: https ://fozia luna.caesar rg/pr ofess ional s/kdo qi/gf r_cal culat or Not Available [facility] (Lab) [address] [place], [address], 08/31/2024 11:43:26 08/31/2008/31/2024 COMPR EHENS DEANNA METAB OLIC PANEL alkaline phosphatase 64 U/L 38-126 Not Available [facility] (Lab) [address] [place], [address], 08/31/2024 11:43:26 08/31/20 24 08/31/2024 COMPR EHENS DEANNA METAB OLIC PANEL alanine aminotransfe rase 17 U/L 0-50 Not Available [facility] (Lab) [address] [place], [address], 08/31/2024 11:43:26 08/31/20 24 08/31/2024 COMPR EHENS DEANNA METAB OLIC PANEL aspartate aminotransfe rase 23 U/L 15-46 Not Available [facility] (Lab) [address] [place], [address], 08/31/2024 11:43:26 08/31/2008/31/2024 COMPR EHENS DEANNA METAB OLIC PANEL bilirubin, total 0.80 mg/dL 0.20-1 .30 Not Available [facility] (Lab) [address] [place], [address], 08/31/2024 11:43:26 08/31/2008/31/2024 COMPR EHENS DEANNA METAB OLIC PANEL calcium 9.4 mg/dL 8.4-10 .2 Not Available [facility] (Lab) [address] [place], [address], 08/31/2024 11:43:26 08/31/20 24 08/31/2024 COMPR EHENS DEANNA METAB OLIC PANEL total protein 6.0 g/dL 6.3-8. 2 low Not Available [facility] (Lab) [address] [place], [address], 08/31/2024 11:43:26 08/31/20 24 08/31/2024 COMPR EHENS DEANNA METAB OLIC PANEL albumin 3.7 g/dL 3.0-4. 4 Not Available [facility] (Lab) [address] [place], [address], 08/31/2024 11:43:26 08/31/20 24 08/31/2024 COMPR EHENS DEANNA METAB OLIC PANEL globulin 2.3 g/dL 2.6-4. 2 low Not Available [facility] (Lab) [address] [place], [address], 08/31/2024 11:43:26 08/31/2008/31/2024 COMPR EHENS DEANNA METAB OLIC PANEL A/G ratio 1.6 ratio 1.0-2. 0 Not Available [facility] (Lab) [address] [place], [address], 08/31/2024 11:43:26 08/31/2008/31/2024 TSH W/REF SAAD FT4 TSH with reflex free T4 0.684 uIU/m L 0.465- 4.680 Not Available [facility] (Lab) [address] [place], [address], 08/31/2024 12:03:05 08/31/2008/31/2024 VITAM IN D 25-HY DROXY [id number] 24.1 NG/mL 30-100 low Vitam in D Statu s: Defic ient: <20 ng/mL Insuf ficie nt: 20-29 ng/mL Suffi cient : 30-10 0 ng/mL Not Available [facility] (Lab) [address] [place], [address], 08/31/2024 12:05:58 08/31/2009/03/2024 HEMOG LOBIN A1C HA1C 5.9 % 4.0-6. 0 Diabe sal Scree elliott Crite jack: <5.7% Consi stent with absen ce of diabe sal 5.7-6 .4% Consi stent with incre ased risk for diabe sal (pred iabet es) >OR=6 .5% Consi stent with diabe sal REFER ENCE: Diabe sal Care 2015, 39(Zacarias ppl.1 ):s13 -s22 Not Available [facility] (Lab) [address] [place], [address], 09/03/2024 14:39:57 05/22/20 24 05/22/2024 cardi ac stres s test No observ ation record ed. [address] [facility] [address], [place], [address], 10/23/2024 09:06:42 09/14/20 24 09/14/2024 imagi ng/di agnos tic resul t No observ ation record ed. [address] [facility] [address], [place], [address], 10/23/2024 09:07:00 09/18/20 24 09/18/2024 CT, angio gram, chest + abdom en + pelvi s, w/ contr ast No observ ation record ed. [address] [place], [address], 10/23/2024 09:08:31 09/27/20 24 09/27/2024 XR, chest , 2 view No observ ation record ed. [address] [place], [address], 10/23/2024 09:08:46 10/24/20 24 10/24/2024 US, liver [facility] [place] [address] [place] [address] Patien t Name: MANNIE NEVAREZ Access ion #: [id number] Sex: M : 1949 4 Dictat ed By: Lashell bryant Francisco Attend ing Physic franklyn: ALFONZO HEBERT Orderi allison Physic franklyn: ALFONZO HBEERT Exam Date: 2023 06:58 AM Exam Name: US ABDOME N SINGLE ORGAN Admitt ing Diagno sis(es ): INDICA TION: non alcoho lic fatty liver TECHNI QUE: Multip le real-t jonn sonogr aphic images were obtain ed of the right upper quadra nt. COMPAR SANDEE: US ABDOME N RETROP ER on DOS: 4 FINDIN GS: The liver demons trates increa sed echote xture withou t focal mass lesion s. The liver measur es 18.5 cm. There is no intrah epatic or extrah epatic ductal dilata tion. The common duct measur es 0.5 cm. Cholel ithias is. The gallbl adder wall measur es 0.3 cm and is within normal limits . The right kidney measur es 10.8 cm. The right kidney is normal in contou r, size, and shape. The echoge nicity is normal . There is no hydron ephros is. The pancre as is not well visual ized due to overly ing bowel gas. IMPRES MEGAN: Hepato megaly and hepati c steato sis. Cholel ithias is. Electr onical ly Signed by: Lashell Francisco at 2023 07:51: 24 AM Page 1 [email or web address] [facility] ([employer]) [address] [place] [address], [id number], 11/27/2024 11:50:16 Result Notes None recorded. Problems Name Problem SNOMED Code Status Onset Date Resolution Date Notes Provider Name and Address Organization Details Recorded Time Spinal stenosis of lumbar region 36324001 Active 2022 Not Available [facility] 3 12:47:20 Morbid obesity 473820337 Active 2022 Not Available [facility] 3 12:47:20 Osteoarthr itis of knee 744105606 Active Not Available [facility] 3 12:47:20 Low back pain 635866226 Active 2022 Not Available [facility] 3 12:47:20 Osteoarthr itis 577924882 Active 2021 Not Available [facility] 3 12:47:20 Arthropath y of joint of hand 323467221 Active Not Available [facility] 3 12:47:20 Osteoarthr itis of right knee joint [id number] 00 Active 2022 BENNIE Luis null, [place] - [place] [employer] [facility] 3 08:45:57 Coronary arterioscl erosis 05221963 Active 2022 Tiana bryant MD [address], [place], [address] , [facility] 3 13:56:07 Type 2 diabetes mellitus without complicati on [id number] Active 2022 Tiana bryant MD [address], [place], [address] , [facility] 3 13:56:16 Hyperlipid emia 47913318 Active 2022 Tiana bryant MD [address], [place], [address] , [facility] 3 13:56:56 Vitamin D deficiency 30872924 Active 2022 Tiana bryant MD [address], [place], [address] , [facility] 3 14:07:39 Urinary incontinen ce 397172423 Active 2022 Tiana bryant MD [address], [place], [address] , [facility] 3 14:23:53 Gastroesop hageal reflux disease without esophagiti s 112167727 Active 2022 Tiana bryant MD [address], [place], [address] , [facility] 3 14:24:14 Chronic pain 18138612 Active 2022 Tiana bryant MD [address], [place], [address] , [facility] 3 14:24:54 Atrial fibrillati on 27555568 Active 2022 Tiana bryant MD [address], [place], [address] , [facility] 3 14:25:54 Obstructiv e sleep apnea syndrome 00104024 Active 2022 Tiana bryant MD [address], [place], [address] , [facility] 3 14:26:12 Bilateral osteoarthr itis of knees [id number] 07 Active 2022 Sarah Rabago RMJose null, [place] - [facility] 3 08:33:04 Osteoarthr itis of left knee joint 1093022205382 09 Active 2022 Amaya Beth CMA null, [place] [facility] 3 08:49:55 Chronic diarrhea 774727391 Active 2023 Evelina Best MA null, [place] [facility] 4 11:40:20 Proteinuri a 56983884 Active 2023 Tiana bryant MD [address], [place], [address] , [facility] 4 17:27:16 Pain of left knee joint 1264594157501 07 Active 2023 Tiana bryant MD [address], [place], [address] , [facility] 4 09:36:49 Diarrhea 41726781 Active 2023 Tiana bryant MD [address], [place], [address] , [facility] 4 10:17:42 Chronic pain syndrome 288511752 Active 2023 Evelina Best MA null, [place] [facility] 4 14:16:46 Neuropathy 151843394 Active 2023 Tiana bryant MD [address], [place], [address] , [facility] [employer] [facility] 4 15:37:24 Pruritic rash 03534719 Active 2023 Tiana bryant MD [address], [place], [address] , [facility] [employer] [facility] 4 09:27:08 Lesion of skin of face 935250609777 Active 2023 Tiana bryant MD [address], [place], [address] , [facility] [employer] [facility] 4 09:29:33 Erectile dysfunctio n 779682304 Active 2023 Tiana bryant MD [address], [place], [address] , [facility] [employer] [facility] 4 12:03:37 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 001470596 Active 2023 Rafael Mares MD [address], [place], [address] , [facility] [employer] [facility] 4 16:15:23 Paratrache al lymphadeno tierra 19206017 Active 2023 Mildred Fam CMA null, [facility] [employer] [facility] 4 09:52:03 Non-alcoho lic fatty liver 858932708 Active 2023 Mildred Fam DISEASE EDUCATION SPECIALIST null, [facility] [employer] [facility] 4 09:56:45 Hepatomega ly 92808907 Active 2023 Mildred Fam CMA null, [facility] [employer] [facility] 4 16:09:09 Notes:Medical History: Anxie ty Rhinitis with postnasal drip Obesity with very sevre OSAHS, AHI = 49, 01/22/16, off autoCPAP Hypertension Hyperlipidemia T2DM with neuropathy CAD s/p FL ZACK Urge urinary incontinence BPH RLS Gout Knee/Hand OA on hydrocodone Procedure History: T&A 195 CABG 1993 AVR 2004 Gastric sleeve surgery 2016 Problem Notes None recorded. Procedures Surgical History Date Name Laterality Status Provider Name and Address Organization Details Recorded Time 03/16/20 Pacemaker completed Valarie Reed DYLONJose [place] [employer] [place] [employer] [facility] 04/26/2024 09:09:47 01/26/20 Medicare Wellness CPT Code, subsequent completed Eusebia Taylor MA [facility] [employer] [facility] 01/26/2024 10:46:49 11/07/19 00 bariatric operative procedure completed Bibiana Manzano [place] [employer] [facility] [employer] [facility] 09/12/2024 14:14:45 open heart surgery completed Valarie Reed Jose MA [employer] [facility] [employer] [facility] 10/20/2023 14:17:29 Knee Replacement completed Valarie Reed Jose [facility] [employer] [facility] 10/20/2023 14:06:52 Knee completed Valarie Reed Jose [employer] [facility] [employer] [facility] 10/20/2023 14:07:29 Tonsillectomy completed Valarie Reed [facility] [employer] [facility] [employer] [facility] 10/20/2023 14:07:35 Imaging Results Imaging Date Name Status LastModified by Ninoska espinozaformerly [facility] Details LastModified Time 05/22/2024 cardiac stress test completed [address] [facility] [address], [place], [address], 10/23/2024 09:06:42 09/14/2024 imaging/diagn ostic result completed [address] [facility] [address], [place], [address], 10/23/2024 09:07:00 09/18/2024 CT, angiogram, chest + abdomen + pelvis, w/ contrast completed [address] [place], [address], 10/23/2024 09:08:31 09/27/2024 XR, chest, 2 view completed [address] [place], [address], 10/23/2024 09:08:46 10/24/2024 US, liver active [facility] [address] [place], [address], 11/27/2024 11:50:16 Procedure Notes None recorded. Medical Equipment None Reported. Allergies No known drug allergies Medications Name Sig Start Date Stop Date Status Note LastModified by Organization Details LastModified Time amoxicillin 500 mg capsule TAKE ONE CAPSULE 3 TIMES DAILY FOR 5 DAYS 2024 active Not Available Not Available Not Avai lable atorvastati n 40 mg tablet TAKE 1 TABLET BY MOUTH EVERY DAY active Not Available Not Available No t Available clonidine HCl 0.1 mg tablet TAKE 1 TABLET BY MOUTH EVERY DAY 12/30 completed Not Available Not Available Not Available ropinirole 1 mg tablet TAKE 1 TABLET BY MOUTH EVERY DAY NEEDED active Not Available Not Available No t Available torsemide 20 mg tablet TAKE 1 TABLET BY MOUTH TWICE A DAY NEEDED DIRECTED 12/06 completed Not Available Not Available Not Available albuterol sulfate 2.5 mg/3 mL (0.083 %) solution for nebulizatio n PLEASE SEE ATTACHED FOR DETAILED DIRECTION S active Not Available Not Available No t Available citalopram 40 mg tablet 08/06 completed Not Available Not Available Not Available Stool Softener 100 mg capsule TAKE ONE CAPSULE TWICE DAILY 02/18 completed Not Available Not Available Not Available alprazolam 1 mg tablet Take 1 tablet as needed by oral route. 10/26 completed Not Available Not Available Not Available ofloxacin 0.3 % eye drops 11/17 completed Not Available Not Available Not Available tizanidine 4 mg tablet TAKE 1 TABLET BY MOUTH TWICE A DAY NEEDED MUSCLE SPASMS 12/30 completed Not Available Not Available Not Available sotalol 80 mg tablet TAKE 1 TABLET BY MOUTH TWICE A DAY 04/16 completed Not Available Not Available Not Available warfarin 7.5 mg tablet TAKE 1 TABLET BY MOUTH ON TUESDAY, TUESDAY AND TUESDAY active Not Available Not Available No t Available isosorbide mononitrate ER 30 mg tablet,exte nded release 24 hr TAKE 1 TABLET BY MOUTH EVERY DAY 09/04 completed Not Available Not Available Not Available fluorouraci l 5 % topical cream APPLY TO AFFECTED AREA(S) ON LEFT OF FOREHEAD/ RIGHT OF NECK TWICE DAILY X6 WEEKS 09/12 completed Not Available Not Available Not Available cyanocobala min (vit B-12) 1,000 mcg tablet TAKE 1 TABLET BY MOUTH EVERY DAY 12/06 completed Not Available Not Available Not Available warfarin 2.5 mg tablet TAKE 1 TABLET BY MOUTH EVERY EVENING WITH 5 MG TABLET TUE,THUR, AND SAT ONLY TOTAL = 7.5MG 09/12 completed Not Available Not Available Not Available valsartan 80 mg tablet TAKE 1 TABLET BY MOUTH EVERY DAY 10/20 completed Not Available Not Available Not Available clopidogrel 75 mg tablet TAKE 1 TABLET BY MOUTH 2 TIMES A WEEK 12/30 completed Not Available Not Available Not Available fexofenadin e 180 mg tablet TAKE 1 TABLET BY MOUTH EVERY DAY FOR 10 DAYS 01/12 completed Not Available Not Available Not Available hydrocodone 10 mg-acetamin ophen 325 mg tablet TAKE 1 TABLET BY MOUTH TWICE A DAY NEEDED FOR PAINNo alcohol, driving or with sedating medicatio ns 04/16 completed Not Available Not Available Not Available aspirin 81 mg tablet,mena yed release Take 1 tablet every day by oral route. 10/26 completed Not Available Not Available Not Available sildenafil 100 mg tablet TAKE 1 30 MINUTES TO 4 HOURS BEFORE ACTIVITY 09/12 completed Not Available Not Available Not Available triamcinolo ne acetonide 0.1 % topical cream APPLY THIN COAT TO AFFECTED AREA TWICE A DAY active Not Available Not Available No t Available temazepam 7.5 mg capsule TAKE 1 CAPSULE BY MOUTH EVERY DAY AT BEDTIME NEEDED FOR SLEEP 10/20 completed Not Available Not Available Not Available carvedilol 3.125 mg tablet TAKE 1 TABLET BY MOUTH TWICE A DAY active Not Available Not Available No t Available Lipitor 20 mg tablet Take 1 tablet twice a day by oral route. 08/06 completed Not Available Not Available Not Available warfarin 4 mg tablet TAKE 1 TABLET BY MOUTH EVERY DAY 09/12 completed Not Available Not Available Not Available oxycodone-a cetaminophe n 5 mg-325 mg tablet TAKE 1 TABLET BY MOUTH EVERY EIGHT HOURS FOR PAIN 04/16 completed Not Available Not Available Not Available tamsulosin 0.4 mg capsule Take 2 capsules by oral route for 90 days. 2024 active Not Available Not Available Not Avai lable dipyridamol e 75 mg tablet TAKE 1 TABLET BY MOUTH FOUR TIMES A DAY active Not Available Not Available No t Available OneTouch Ultra Test strips USE TO TEST TWICE DAILY active Not Available Not Available No t Available Kenalog 10 mg/mL suspension for injection in office 01/25 completed [facility]: [id number]- 20 Not Available Not Available Not Available doxycycline monohydrate 100 mg capsule TAKE 1 CAPSULE BY MOUTH TWICE A DAY FOR 7 DAYS 12/30 completed Not Available Not Available Not Available hydrocodone 7.5 mg-acetamin ophen 325 mg tablet TAKE 1 TABLET BY MOUTH ONCE A DAY TO TWICE A DAY NEEDED active Not Available Not Available No t Available cephalexin 500 mg capsule TAKE 1 CAPSULE BY MOUTH THREE TIMES A DAY 04/16 completed Not Available Not Available Not Available pantoprazol e 40 mg tablet,mena yed release TAKE 1 TABLET BY MOUTH EVERY DAY active Not Available Not Available No t Available oseltamivir 75 mg capsule 08/06 completed Not Available Not Available Not Available ferrous sulfate 325 mg (65 mg iron) tablet TAKE 1 TABLET BY MOUTH EVERY DAY active Not Available Not Available No t Available metformin 1,000 mg tablet TAKE 1 TABLET BY MOUTH EVERY DAY 04/16 completed Not Available Not Available Not Available ropinirole 0.5 mg tablet TAKE 1 TABLET BY MOUTH EVERY DAY NEEDED active Not Available Not Available No t Available clotrimazol e-betametha sone 1 %-0.05 % topical cream APPLY TO AFFECTED AREA TWICE A DAY 09/12 completed Not Available Not Available Not Available warfarin 5 mg tablet TAKE 1 1/2 TABLET BY MOUTH EVERY EVENING EXCEPT ON TUESDAY, TUESDAY ,TUESDAY TAKE ONLY 1 TAB active Not Available Not Available No t Available metoprolol tartrate 50 mg tablet TAKE 1 TABLET BY MOUTH TWICE A DAY 10/20 completed Not Available Not Available Not Available triamcinolo ne acetonide 0.025 % topical ointment 08/06 completed Not Available Not Available Not Available nitroglycer in 0.[address] 1 TABLET UNDER THE TONGUE EVERY 5 MINUTES, UP TO 3 DOSES NEEDED FOR CHEST PAIN active Not Available Not Available No t Available Xylocaine 20 mg/mL (2 %) injection solution In office injection administe red by the provider 06/03 completed Not Available Not Available Not Available gabapentin 300 mg capsule TAKE 1 CAPSULE BY MOUTH FOUR TIMES A DAY active Not Available Not Available No t Available diclofenac sodium 75 mg tablet,mena yed release TAKE 1 TABLET BY MOUTH TWICE A DAY NEEDED 04/26 completed Not Available Not Available Not Available codeine 10 mg-guaifene sin 100 mg/5 mL oral liquid 08/06 completed Not Available Not Available Not Available bisacodyl 5 mg tablet,mena yed release TAKE 6 TABLETS BY MOUTH AT 8 AM ON 02/02 completed Not Available Not Available Not Available digoxin 125 mcg (0.125 mg) tablet TAKE 1 TABLET BY MOUTH EVERY DAY 12/30 completed Not Available Not Available Not Available furosemide 20 mg tablet TAKE 1 TABLET BY MOUTH EVERY DAY 12/30 completed Not Available Not Available Not Available ergocalcife rol (vitamin D2) 1,250 mcg (50,000 unit) capsule TAKE 1 CAPSULE BY MOUTH ONE TIME PER WEEK active Not Available Not Available No t Available warfarin 1 mg tablet TAKE 1 TABLET BY MOUTH EVERY EVENING TAKE ON RI ONLY 04/16 completed Not Available Not Available Not Available levofloxaci n 500 mg tablet TAKE 1 TABLET BY MOUTH ONCE A DAY FOR 14 DAYS 04/16 completed Not Available Not Available Not Available levofloxaci n 750 mg tablet TAKE 1 TABLET BY MOUTH EVERY DAY AFTER FOOD 06/03 completed Not Available Not Available Not Available albuterol sulfate HFA 90 mcg/actuati on aerosol inhaler INHALE 1 PUFF BY MOUTH ONCE EVERY 4 HOURS NEEDED FOR SHORTNESS OF BREATH/WH EEZING 12/30 completed Not Available Not Available Not Available doxycycline hyclate 100 mg tablet TAKE 1 TABLET BY MOUTH ONCE EVERY 12 HOURS FOR 7 DAYS 12/30 completed Not Available Not Available Not Available calcitriol 0.25 mcg capsule TAKE 1 CAPSULE BY MOUTH EVERY DAY FOR 90 DAYS active Not Available Not Available No t Available finasteride 5 mg tablet TAKE 1 TABLET BY MOUTH EVERY DAY active Not Available Not Available No t Available amoxicillin 875 mg-potassiu m clavulanate 125 mg tablet TAKE 1 TABLET BY MOUTH TWICE A DAY AFTER FOOD 11/10 completed Not Available Not Available Not Available valsartan 160 mg tablet TAKE 1 TABLET BY MOUTH TWICE A DAY 04/26 completed Not Available Not Available Not Available Asprin Ec Low Dose 81 mg tablet,mena yed release Take 1 tablet every day by oral route. 08/15 completed Not Available Not Available Not Available valsartan 40 mg tablet TAKE 1 TABLET BY MOUTH EVERY DAY 12/30 completed Not Available Not Available Not Available ezetimibe 10 mg tablet TAKE 1 TABLET BY MOUTH EVERY DAY active Not Available Not Available No t Available rosuvastati n 10 mg tablet TAKE 1 TABLET BY MOUTH EVERY DAY 10/26 completed Not Available Not Available Not Available rosuvastati n 40 mg tablet Take 1 tablet every day by oral route. 12/15 completed Not Available Not Available Not Available Marcaine (PF) 0.5 % (5 mg/mL) injection solution in office 01/25 completed Not Available Not Available Not Available hydrocodone 10 mg-acetamin ophen 300 mg tablet Take 1 tablet as needed by oral route. 08/06 completed Not Available Not Available Not Available BD Ultra-Fine Mini Pen Needle 31 gauge x 3/16 USE TO INJECT ONCE DAILY WITH LEVEMIR active Not Available Not Available No t Available solifenacin 10 mg tablet Take 1 tablet every day by oral route. 02/18 completed Not Available Not Available Not Available Vitamin B-12 active Not Available Not Available Not Available aspirin 80 mg 08/15 completed Not Available Not Available Not Available digoxin 08/15 completed Not Available Not Available Not Available Vitamin D3 12/06 completed Not Available Not Available Not Available Vitamin B12 1,000mg daily active Not Available Not Available No t Available hydrocodone 7.5 mg-acetamin ophen 300 mg tablet TAKE 1 TABLET BY MOUTH EVERY DAY NEEDED 12/06 completed Not Available Not Available Not Available lidocaine (PF) 10 mg/mL (1 %) injection solution In office injection administe red by the provider 11/10 completed [facility]: [phone] [phone]- [phone] Not Available Not Available Not Available tramadol ER 100 mg tablet,exte nded release 24 hr Take 1 tablet twice a day by oral route. 08/15 completed Not Available Not Available Not Available Januvia 100 mg tablet TAKE 1 TABLET BY MOUTH EVERY DAY 12/30 completed Not Available Not Available Not Available Cholestyram ine Light 4 gram oral powder TAKE 1 TO 2 SCOOPS BY MOUTH ONCE DAILY NEEDED active Not Available Not Available No t Available Gavilyte-C 240 gram-22.72 gram-6.72 gram-5.84 gram oral solution 06/03 completed Not Available Not Available Not Available Multaq 400 mg tablet TAKE 1 TABLET BY MOUTH TWICE A DAY WITH MEALS IN THE MORNING & IN THE EVENING 09/04 completed Not Available Not Available Not Available Colcrys 02/18 completed Not Available Not Available Not Available dutasteride 0.5 mg-tamsulos in ER 0.4 mg capsule ext.release 24hr mphas TAKE 1 CAPSULE BY MOUTH EVERY DAY 06/03 completed Not Available Not Available Not Available ropivacaine (PF) 5 mg/mL (0.5 %) injection solution in office procedure , administe red by provider 12/15 completed [facility] [phone] Not Available Not Available Not Available metoprolol succ 50 mg-hydrochl orothiazide 12.5 mg tablet,ext. rel 24 hr Take 1 tablet twice a day by oral route. 08/15 completed Not Available Not Available Not Available Janumet XR 50 mg-500 mg tablet,exte nded release Take 1 tablet twice a day by oral route. 08/06 completed Not Available Not Available Not Available Ca 600 mg-D3 800 unit-mag ox 40 mg-Zn-coppe r-Mn-boron chewable tablet CHEW AND SWALLOW 1 TABLET THREE TIMES DAILY 08/15 completed Not Available Not Available Not Available Levemir FlexTouch U-100 Insulin 100 unit/mL (3 mL) subcutaneou s pen INJECT 20 UNITS UNDER THE SKIN ONCE DAILY DIRECTED 10/20 completed Not Available Not Available Not Available Jardiance 10 mg tablet TAKE 1 TABLET BY MOUTH EVERY DAY active Not Available Not Available No t Available Entresto 97 mg-103 mg tablet TAKE 1 TABLET BY MOUTH TWICE A DAY active Not Available Not Available No t Available Entresto 49 mg-51 mg tablet TAKE 1 TABLET BY MOUTH TWICE A DAY 12/06 completed Not Available Not Available Not Available Entresto 24 mg-26 mg tablet TAKE 1 TABLET BY MOUTH TWICE A DAY 09/04 completed Not Available Not Available Not Available Ozempic 0.25 mg or 0.5 mg (2 mg/1.5 mL) subcutaneou s pen injector INJECT 0.25MG UNDER THE SKIN ONCE WEEKLY [id number] THEN INCREASE TO 0.5MG ONCE WEEKLY [id number] 10/20 completed Not Available Not Available Not Available OneTouch Ultra Blue Test Strip USE TO TEST 4 TIMES A WEEK 02/18 completed Not Available Not Available Not Available OneTouch Ultra2 Meter USE DIRECTED 02/18 completed Not Available Not Available Not Available OneTouch Delica Plus Lancet 33 gauge USE TO TEST 4 TIMES A WEEK 02/18 completed Not Available Not Available Not Available Ozempic 1 mg/dose (4 mg/3 mL) subcutaneou s pen injector INJECT 1 MG (0.75 ML) UNDER THE SKIN ONCE WEEKLY FOR WEEKS 9-12 OF THERAPY 10/20 completed Not Available Not Available Not Available BinaxNOW COVID-19 Ag Self Test kit REFER TO MANUFACTU RER PACKING FOR DIRECTION S 10/20 completed Not Available Not Available Not Available Kerendia 20 mg tablet TAKE 1 TABLET BY MOUTH EVERY DAY active Not Available Not Available No t Available Ozempic 2 mg/dose (8 mg/3 mL) subcutaneou s pen injector INJECT 2MG UNDER THE SKIN ONCE WEEKLY active Not Available Not Available No t Available Vitals Date Recorded Body height Body mass index (BMI) Body weight Body temperature Heart rate Systolic blood pressure Diastolic blood pressure Provider Name and Address Organization Details Last Updated DateTime 4 175.26 cm 34.9 kg/m2 098704. 8 g 97.4 [degF] 78 /min 110 mm[Hg] 62 mm[Hg] BENNIE Saldivar [place] - [facility] [employer] [facility] 4 14:56:36 Date Recorded Body height Body temperature Heart rate Systolic blood pressure Diastolic blood pressure Provider Name and Address Organization Details Last Updated DateTime 09/04/2024 175.26 cm 97.2 [degF] 78 /min 128 mm[Hg] 70 mm[Hg] BENNIE [facility]divar [facility] [employer] [facility] 4 11:56:36 Date Recorded Body height Body mass index (BMI) Body weight Body temperature Oxygen saturation Oxygen saturation in Arterial blood by Pulse oximetry Heart rate Systolic blood pressure Diastolic blood pressure Provider Name and Address Organization Details Last Updated DateTime 4 172.72 cm 37.6 kg/m2 376148. 32 g 97.3 [degF] 96 % 96 % 85 /min 132 mm[Hg] 73 mm[Hg] Bibiana Manzano [facility] [employer] [facility] 4 14:13:00 Date Recorded Body height Body mass index (BMI) Body weight Body temperature Heart rate Oxygen saturation Oxygen saturation in Arterial blood by Pulse oximetry Pain severity - 0-10 verbal numeric rating [Score] - Reported Systolic blood pressure Diastolic blood pressure Provider Name and Address Organization Details Last Updated DateTime 5 172.72 cm 36.6 kg/m2 530301. 76 g 97.4 [degF] 89 /min 98 % 98 % 5 120 mm[Hg] 60 mm[Hg] Diane Clarke MA [facility] [employer] [facility] 5 09:06:59 Date Recorded Body height Body temperature Heart rate Oxygen saturation Oxygen saturation in Arterial blood by Pulse oximetry Systolic blood pressure Diastolic blood pressure Provider Name and Address Organization Details Last Updated DateTime 5 172.72 cm 97.2 [degF] 85 /min 97 % 97 % 116 mm[Hg] 93 mm[Hg] Bibiana Manzano [employer] [facility] [employer] 5 15:36:18 Social History Question Answer Notes LastModified by Organizat ion Details LastModified Time Tobacco Smoking Status Never Smoker Not Available [facility] 01/05/2023 12:45:57 Do You Have An Advance Directive? No Information not available 10/20/2023 What Is Your Level Of Alcohol Consumption? None [id number] Information not available 01/05/2023 Are You Blind Or Do You Have Difficulty Seeing? No Information not available 10/20/2023 What Is Your Level Of Caffeine Consumption? Moderate Information not available 10/20/2023 In The 14 Days Before Symptom Onset, Have You Had Close Contact With A Laboratory-confi rmed COVID-19 While That Case Was Ill? No Information not available 10/20/2023 In The 14 Days Before Symptom Onset, Have You Had Close Contact With A Person Who Is Under Investigation For COVID-19 While That Person Was Ill? No Information not available 10/20/2023 Are You Currently Employed? No [employer] Information not available 10/20/2023 Are You Deaf Or Do You Have Serious Difficulty Hearing? No Information not available 10/20/2023 What Type Of Diet Are You Following? REGULAR [id number] Information not available 01/05/2023 What Is The Highest Grade Or Level Of School You Have Completed Or The Highest Degree You Have Received? [id number] Information not available 10/20/2023 Do You Have An Electrostatic Air Filter? No [id number] Information not available 01/05/2023 Have There Been Any Changes To Your Family Or Social Situation? No Information not available 04/16/2024 What Is The Fluoride Status Of Your Home? Unknown Information not available 10/20/2023 Are There Any Guns Present In Your Home? Yes MIGRATION.[id number] [id number] Information not available 01/05/2023 Do You Have A Humidifier? Yes MIGRATION.48402 67044 Information not available 01/05/2023 Do You Use Insect Repellent Routinely? No Information not available 12/06/2024 Where Do You Live? [place] MIGRATION.50138 [id number] Information not available 01/05/2023 Do You Have A Medical Power Of Business Performance Manager? Yes Information not available 10/20/2023 Do You Have Moisture Problems In Your Home? No MIGRATION.[id number] [id number] Information not available 01/05/2023 What Was The Date Of Your Most Recent Tobacco Screening? 12/14/2024 [email or web address] Information not available 12/14/2024 Do You Have Any Pets? Yes MIGRATION.11825 60172 Information not available 01/05/2023 What Is Your Relationship Status? Information not available 10/20/2023 Do You Use Your Seat Belt Or Car Seat Routinely? Yes Information not available 10/20/2023 Do You Have Smoke And Carbon Monoxide Detectors In Your Home? Yes MIGRATION.65381 [id number] Information not available 01/05/2023 Are You Passively Exposed To Smoke? No MIGRATION.22146 68988 Information not available 01/05/2023 Are There Any Smokers In Your House? No Information not available 10/20/2023 Do You Feel Stressed (tense, Restless, Nervous, Or Anxious, Or Unable To Sleep At Night)? [id number] Information not available 10/20/2023 Do You Use Any Illicit Or Recreational Drugs? No Information not available 10/20/2023 Do You Use Sunscreen Routinely? No MIGRATION.43447 38449 Information not available 01/05/2023 Has Tobacco Cessation Counseling Been Provided? No N/a Information not available 10/20/2023 Have You Recently Traveled Abroad? No MIGRATION.05517 06471 Information not available 01/05/2023 Do You Have Any Dietary Restrictions? No MIGRATION.11182 58630 Information not available 01/05/2023 Do You Or Have You Ever Used Any Other Forms Of Tobacco Or Nicotine? No Information not available 10/20/2023 Sex: Male Functional Status Question Answer Note LastModified by Organizat ion Details LastModified Time Do you have difficulty walking or climbing stairs? Yes Information not available 10/20/2023 Do you have transportation difficulties? No Information not available 01/26/2024 Are you able to walk? YESASSIST usually uses cane Information not available 10/20/2023 Do you have difficulty doing errands alone? No Information not available 10/20/2023 Are you able to care for yourself? Yes Information n ot available 10/20/2023 Do you have difficulty dressing or bathing? Yes Information not available 10/20/2023 What is your exercise level? Occasional [email or web address] Information not available 01/26/2024 Mental Status Question Answer Note LastModified by Organization D etails LastModified Time Do you have difficulty concentrating, remembering or making decisions? No Information no t available 10/20/2023 Family History Relationship Description Onset Age of this Age Resolved Age Notes LastModified by Organization Details LastModified Time Father Heart disease [id number] Not available 01/05/2023 12:45:59 Father Hypertensive disorder [id number] Not available 01/05/2023 12:45:59 Father Diabetes mellitus MIGRATION.504 [id number] Not available 01/05/2023 12:45:59 Medical History Condition Response BLINDNESS N KIDNEY STONES N CARPAL TUNNEL SYNDROME N MRSA N LUNG DISEASE/DISORDER N HISTORY OF DRUG ABUSE N RADIATION / CHEMOTHERAPY N COPD N SPORTS INJURY N ANKLE PAIN N BLOOD DISEASES N SCHIZOPHRENIA N SHINGLES N BOWEL PROBLEMS N SHOULDER PAIN N DEPRESSION (INCLUDING POST ) N STROKE/TIA N KNEE PAIN N ULCERS N BENIGN PROSTATIC HYPERPLASIA N OBESITY N GERD/NAUSEA N ANEURYSM N URINARY/BLADDER/KIDNEY PROBLEMS N CORONARY ARTERY DISEASE (CAD) Y ADDICTION CONCERNS N USE OF BLOOD THINNERS Y SKIN PROBLEMS Y EMPHYSEMA N MUSCLE,JOINT OR BONE PROBLEMS N DVT N STOMACH ULCERS N BLOOD CLOTS N USE OF NSAIDS N CONCUSSION OR SPINAL TRAUMA N NEUROPATHY N AIDS/HIV N FRACTURES N ELBOW PAIN N HYPERTENSION Y TOURETTE'S N ANXIETY DISORDER N Metal allergy N BLOOD TRANSFUSION N ANEMIA/BLOOD DISORDER N BIPOLAR DISORDER N BRONCHITIS N OSTEOARTHRITIS N TUBERCULOSIS N FOOT PROBLEM N HEART VALVE DISORDERS Y SLEEP APNEA Y ALLERGIES/HAYFEVER N SOFT TISSUE INJURY N INFECTIOUS DISEASE N HEART ARRHYTHMIA N INSOMNIA N RHEUMATOID ARTHRITIS N HIGH CHOLESTEROL / HYPERLIPIDEMIA N EDEMA N CHRONIC PAIN SYNDROME N CAROTID BLOCKAGE N BACK / NECK PROBLEMS N BURSITIS N HERNIATED DISC N DIALYSIS N FIBROMYALGIA N OSTEOPOROSIS N ARTHRITIS Y NO SIGNIFICANT PAST MEDICAL HISTORY N PERIPHERAL NEUROPATHY N DIABETES, TYPE Y HEARTBURN / REFLUX N HEPATITIS / LIVER DISEASE N GOUT N SLEEP DISORDER N ALZHEIMER'S DISEASE N HERPES N SEIZURES/EPILEPSY N HEADACHES/MIGRAINES N VASCULAR DISEASE N HIP PAIN N Blood Disorder N DIZZINESS N HEAD TRAUMA OR INJURY N HEART DISEASE/HEART PROBLEMS Y MULTIPLE SCLEROSIS N CARDIAC ARRHYTHMIA N CANCER: SPECIFY Y ANESTHESIA COMPLICATIONS N ATRIAL FIBRILLATION Y AUTOIMMUNE DISEASE N Past Encounters Encounter ID Performer Location Encounter Start Date Encounter Closed Date Diagnosis/Indication Diagnosis SNOMED-CT Code Diagnosis ICD10 Code Diagnosis Note [id number] [facility] [address] [place] [address] 02/18/2021 00:00:00 02/18/2021 11:32:06 [id number] [facility] [address] [place] [address] 06/19/2021 00:00:00 06/19/2021 14:55:34 [id number] [facility] [address] [place] [address], [place] [address] 11/17/2021 00:00:00 11/17/2021 15:32:34 [id number] [facility] [address] [place] [address], [place] [address] 01/12/2022 00:00:00 01/12/2022 10:01:46 [id number] [facility] [address] [place] [address] 2022 00:00:00 2022 14:19:26 [id number] [facility] [address] [place] [address] 05/26/2022 00:00:00 05/26/2022 15:15:44 [id number] [facility] [address] [place] [address], [place] [address] 08/10/2022 00:00:00 08/10/2022 10:20:52 [id number] [facility] [address] [place] [address] 09/08/2022 00:00:00 09/08/2022 09:38:15 [id number] [facility] [address] [place] [address] 11/25/2022 00:00:00 11/25/2022 09:19:23 [id number] [facility] [address] [place] [address] 12/17/2022 00:00:00 12/17/2022 10:08:24 [id number] [facility] [address] [place] [address] 12/23/2022 00:00:00 12/23/2022 09:20:24 [id number] [facility] [address] [place] [address] 12/30/2022 00:00:00 12/30/2022 09:33:05 [id number] OSMAR Suarez [facility] [address] [place] [address] 03/25/2023 08:38:13 03/25/2023 09:26:01 Osteoarthritis of right knee joint [id number] 20193 M17.11 [id number] OSMAR Suarez [facility] [address] [place] [address] 06/24/2023 08:44:09 06/24/2023 09:15:28 Osteoarthritis of right knee joint 8987210893 55086 M17.11 [id number] Tiana bryant MD [facility] [address] [facility], [address] [place] [address] 10/20/2023 13:47:19 10/20/2023 15:03:58 Screening - NAD 600584858 Z13.9 C-scope: Get yearly flu shotGet TdapGet Shingrix vaccineGet PCV #20Get COVID 19 vaccineGet RSV vaccine RTC in 3 months, do labs ER if worse, he did verbalize his understand ing of the above Coronary arteriosclerosis 58879581 I25.10 On ASAOn dipyridamo le 75mg qidOn isosorbide ER 30mg dailyOn NTGOn sotalol 80mg bidOn torsemide 20mg dailyOn valsartan 160mg bidOn warfarin Sees Dr Wyman, INR to be done by [facility] 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 722152772 E11.9 On jardiance 10mg dailyOn metformin 1000mg dailyOn Ozempic 2mg weekly Get labs Hyperlipidemia 64694429 E78.5 Screening for malignant neoplasm of prostate 614936781 Z12.5 Vitamin D deficiency 347 35410 E55.9 Urinary incontinence 165 593592 R32 On finasterid e 5mg daily Gastroesop hageal reflux disease without esophagitis 889136253 K21.9 On pantoprazo le 40mg dailyGet EGD done Chronic pain 91884289 G8 9.29 Advised not to take any NSAIDs!Nee ds to see pain management , unable to provide any opiates or controlled substances Atrial fibrillation 4943 6004 I48[address] Wyman Obstructiv e sleep apnea syndrome 21907801 G47.33 Screening for malignant neoplasm of colon 410835029 Z12.11 [id number] Jorge Richard MD [facility] [address] [place] [address] 10/26/2023 08:26:07 10/26/2023 09:13:32 Osteoarthritis of right knee joint [id number] 41753 M17.11 [id number] Tiana bryant MD [facility] [place] [facility] [address] [facility], [address] [place] [address] 01/26/2024 08:52:47 01/26/2024 10:22:16 Screening - NAD 308078339 Z13.9 C-scope: Get this done Get yearly flu shotGet TdapGet Shingrix vaccineGet PCV #20Get COVID 19 vaccineGet RSV vaccine RTC in 3 months, do labs ER if worse, he did verbalize his understand ing of the above Coronary arteriosclerosis 03233906 I25.10 ECHO 01/05/2024 : In a fib On ASAOn dipyridamo le 75mg qidOn isosorbide ER 30mg dailyOn NTGOn sotalol 80mg bidOn torsemide 20mg dailyOn valsartan 160mg bidOn warfarin Sees Dr Wyman, INR to be done by [facility] 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 707411545 E11.9 On jardiance 10mg dailyNot on metformin 1000mg dailyNot on Ozempic 2mg weekly, stopped by Dr Wyamn 01/12/2024 , d/t diarrhea Get labs Hyperlipidemia 42819958 E78.5 On atorvastat in 40mg dailyGet labs Vitamin D deficiency 347 79150 E55.9 Urinary incontinence 165 108860 R32 On finasterid e 5mg daily Gastroesop hageal reflux disease without esophagitis 241054620 K21.9 On pantoprazo le 40mg dailyGet EGD done Chronic pain 17190611 G8 9.29 Advised not to take any NSAIDs!Nee ds to see pain management , unable to provide any opiates or controlled substances OV 01/26/2024 :[facility] pain management 11/17/2023 His hydrocodon e was not prescribed , and this did coincide with his diarrhea, may be withdrawal ? Atrial fibrillation 4943 6004 I48.[address] Wyman Obstructiv e sleep apnea syndrome 65140469 G47.33 Dr Tyson 08/10/2022 Screening for malignant neoplasm of colon 584594850 Z12.11 Proteinuria 48988487 R80 .9 On [facility] eds to see nephrology Pain of le ft knee joint 0040052153 67435 M25.562 José Miguel PRASAD 01/25/2024 , s/p kenalog Diarrhea 31965305 R19.7 Has stopped the metformin, ozempicHis opiates were not renewed by pain management Also stop the iron tabsMay need to be on cholestyra mine or take lomotil as neededIf not better then see GI Adult heal th examination 695880690 Z00.00 Screening for disorder 267809008 Z13.9 [id number] OSMAR Suarez [facility] [address] [place] [address] 01/25/2024 08:59:32 01/25/2024 11:45:22 Osteoarthritis of left knee joint 8651297255 79003 M17.12 [id number] Tiana bryant MD [facility] [address] [place] [address] 04/16/2024 08:54:53 04/16/2024 09:30:32 Screening - NAD 794450475 Z13.9 C-scope: Get this done Get yearly flu shotGet TdapGet Shingrix vaccineGet PCV #20Get COVID 19 vaccineGet RSV vaccine RTC in 2 months, do labs ER if worse, he did verbalize his understand ing of the above Coronary arteriosclerosis 06889568 I25.10 ECHO 01/05/2024 : In a fib On ASAOn dipyridamo le 75mg qidOn isosorbide ER 30mg dailyOn NTGOn sotalol 80mg bidOn torsemide 20mg dailyOn valsartan 160mg bidOn warfarin Sees Dr Wyman, INR to be done by [facility] 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 667121379 E11.9 On jardiance 10mg dailyNot on metformin 1000mg dailyNot on Ozempic 2mg weekly, stopped by Dr Wyman 01/12/2024 , d/t diarrhea Get labs Hyperlipidemia 02814230 E78.5 On atorvastat in 40mg dailyGet labs Vitamin D deficiency 347 23947 E55.9 Urinary incontinence 165 472616 R32 On finasterid e 5mg daily Gastroesop hageal reflux disease without esophagitis 204541075 K21.9 On pantoprazo le 40mg dailyGet EGD done Chronic pain 71421652 G8 9.29 Advised not to take any NSAIDs!Nee ds to see pain management , unable to provide any opiates or controlled substances OV 01/26/2024 :[facility] pain management 11/17/2023 His hydrocodon e was not prescribed , and this did coincide with his diarrhea, may be withdrawal ? OV 04/16/2024 :Now see Dr Rach aggarwal hydrocodon e as needed Atrial fibrillation 4943 6004 I48.[address] Wyman Obstructiv e sleep apnea syndrome 30991225 G47.33 Dr Tyson 08/10/2022 Screening for malignant neoplasm of colon 787824313 Z12.11 Proteinuria 55103147 R80 .9 On [facility] eds to see nephrology Pain of le ft knee joint 1947984007 74190 M25.562 José Miguel PRASAD 01/25/2024 , s/p kenalog Diarrhea 23172995 R19.7 Has stopped the metformin, ozempicHis opiates were not renewed by pain management Also stop the iron tabsMay need to be on cholestyra mine or take lomotil as neededIf not better then see GI OV 04/16/2024 :On cholestyra minaShould see GI to determine the cause of the diarrhea Neuropathy 065456489 G62 .9 Sees his manager of investigations Is on qutenza (capsacin) Pruritic rash 55671974 L 28.2 Lesion of skin of face 4847854419 06 L98.9 Sees his dermatolog ist in [facility] hyperemic lesion noted on the L scalp and R mid neck [id number] Tiana bryant MD [facility] [address] [facility] [address] [place] [address] 04/26/2024 08:23:58 04/26/2024 09:38:30 Screening - NAD 017029218 Z13.9 C-scope: Get this done Get yearly flu shotGet TdapGet Shingrix vaccineGet PCV #20Get COVID 19 vaccineGet RSV vaccine RTC in 2 months, do labs ER if worse, he did verbalize his understand ing of the above Coronary arteriosclerosis 46147319 I25.10 ECHO 01/05/2024 : In a fibUS carotid 02/02/2024 On ASAOn coregOn dipyridamo le 75mg qidOn isosorbide ER 30mg dailyOn NTGNot on sotalol 80mg bidOn torsemide 20mg dailyNot on valsartan 160mg bid, d/c 04/12/2024 On entresto 97-103mg bid Dr Wyman 04/12/[address] Wyman, INR to be done by [facility] 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 760312303 E11.9 On jardiance 10mg dailyNot on metformin 1000mg dailyNot on Ozempic 2mg weekly, stopped by Dr Wyman 01/12/2024 , d/t diarrhea Get labs Hyperlipidemia 27264923 E78.5 On atorvastat in 40mg dailyGet labs Vitamin D deficiency 347 01330 E55.9 Urinary incontinence 165 431293 R32 On finasterid e 5mg daily Gastroesop hageal reflux disease without esophagitis 296048511 K21.9 On pantoprazo le 40mg dailyGet EGD done, has seen Dr Spears Chronic pain 55942081 G8 9.29 Advised not to take any NSAIDs!Nee ds to see pain management , unable to provide any opiates or controlled substances OV 01/26/2024 :[facility] pain management 11/17/2023 His hydrocodon e was not prescribed , and this did coincide with his diarrhea, may be withdrawal ? OV 04/16/2024 :Now see Dr Rach aggarwal hydrocodon e as needed OV 04/26/2024 :On hydrocodon Bonnie gabapentin Atrial fibrillation 4943 6004 I48.[address] Wyman Obstructiv e sleep apnea syndrome 19503375 G47.33 Dr Tyson 08/10/2022 Proteinuria 24677474 R80 .[address] Ruiz 03/27/2024 Pain of le ft knee joint 7477320745 36951 M25.562 José Miguel Mcduffie PA 01/25/2024 , s/p kenalog Diarrhea 61250139 R19.7 Has stopped the metformin, ozempicHis opiates were not renewed by pain management Also stop the iron tabsMay need to be on cholestyra mine or take lomotil as neededIf not better then see GI OV 04/16/2024 :On cholestyra minaShould see GI to determine the cause of the diarrhea OV 04/26/2024 :Dr Spears 04/11/2024 , to get EGD and C-scope Neuropathy 084508428 G62 .9 Sees his manager of investigations Is on qutenza (capsacin) Pruritic rash 46205041 L 28.2 Has noted a rash underneath the abdominal fold, none today, but has used clot-betam ethasone in the past with good reliefRene w the clotrimazo le-betamet hasone cream Lesion of skin of face 5977728806 06 L98.9 [facility] noted on the L scalp and R mid neck [id number] Tiana bryant MD [facility] [address] [facility], [address] [place] [address] 06/05/2024 14:41:48 06/05/2024 15:28:55 Screening - NAD 003578074 Z13.9 C-scope: Get this done Get yearly flu shotGet TdapGet Shingrix vaccineGet PCV #20Get COVID 19 vaccineGet RSV vaccine RTC in 3 months, do labs ER if worse, he did verbalize his understand ing of the above Coronary arteriosclerosis 25917275 I25.10 ECHO 01/05/2024 : In a fibUS carotid 02/02/2024 On ASAOn coreg 3.125mg bidOn dipyridamo le 75mg qidOn isosorbide ER 30mg dailyOn NTGNot on sotalol 80mg bidOn torsemide 20mg dailyNot on valsartan 160mg bid, d/c 04/12/2024 On entresto 97-103mg bid Dr Wyman 04/12/[address] Wyman, INR to be done by [facility] is now to get another procedure done by Dr Wyamn as per his history 06/05/2024 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 644896302 E11.9 On jardiance 10mg dailyNot on metformin 1000mg dailyBack on Ozempic 2mg weekly as he feels that his diarrhea has improved, advised to stop if getting any procedure 06/05/2024 Get labs Hyperlipidemia 04045767 E78.5 On atorvastat in 40mg dailyGet labs Vitamin D deficiency 347 28951 E55.9 Urinary incontinence 165 576648 R32 On finasterid e 5mg dailyOn flomax renewed 06/05/2024 Gastroesop hageal reflux disease without esophagitis 399030361 K21.9 On pantoprazo le 40mg dailyGet EGD done, has seen Dr Spears Chronic pain 01902957 G8 9.29 Advised not to take any NSAIDs!Nee ds to see pain management , unable to provide any opiates or controlled substances OV 01/26/2024 :[facility] pain management 11/17/2023 His hydrocodon e was not prescribed , and this did coincide with his diarrhea, may be withdrawal ? OV 04/16/2024 :Now see Dr Loyd n hydrocodon e as needed OV 04/26/2024 :On hydrocodon Bonnie gabapentin OV 06/05/2024 :On hydrocodon Bonnie gabapentin Sees Dr Watters Atrial fibrillation 3[address] 05/22/[address] Wyman Obstructiv e sleep apnea syndrome 81053362 G47.33 Dr Tyson 08/10/2022 Proteinuria 29364857 R80 .9 Not on kerendiaDr Ruiz 03/27/2024 Pain of le ft knee joint 8301905843 65894 M25.562 José Miguel PRASAD 01/25/2024 , s/p kenalog Diarrhea 45782247 R19.7 Has stopped the metformin, ozempicHis opiates were not renewed by pain management Also stop the iron tabsMay need to be on cholestyra mine or take lomotil as neededIf not better then see GI OV 04/16/2024 :On cholestyra minaShould see GI to determine the cause of the diarrhea OV 04/26/2024 :Dr Spears 04/11/2024 , to get EGD and C-scope OV 06/05/2024 : Get EGD and C-scope Neuropathy 489484283 G62 .9 Sees his manager of investigations Is on qutenza (capsacin) Pruritic rash 66136085 L 28.2 Has noted a rash underneath the abdominal fold, none today, but has used clot-betam ethasone in the past with good reliefRene w the clotrimazo le-betamet hasone cream as needed Lesion of skin of face 8766151656 06 L98.9 Sees his dermatolog ist in [facility] hyperemic lesion noted on the L scalp and R mid neck [id number] Tiana bryant MD [employer] [facility] [place] [facility] [address] [facility], [facility] [place] [address] 09/04/2024 11:32:25 09/04/2024 12:23:42 Screening - NAD 593696616 Z13.9 C-scope: Get this done Get yearly flu shotGet TdapGet Shingrix vaccineGet PCV #20Get COVID 19 vaccineGet RSV vaccine RTC in 3 months, do labs ER if worse, he did verbalize his understand ing of the above Coronary arteriosclerosis 00074761 I25.10 ECHO 01/05/2024 : In a fibUS carotid 02/02/2024 [facility] 08/21/2024 : [facility] Dr Jenkins On ASANot on coreg 3.125mg bidOn dipyridamo le 75mg qidNot on isosorbide ER 30mg dailyOn NTGNot on sotalol 80mg bidOn torsemide 20mg dailyNot on valsartan 160mg bid, d/c 04/12/2024 On entresto 49-51mg bid Dr Spencer warfarin Sees Dr Wyman last OV 08/09/2024 , referred Dr Wise 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 746164333 E11.9 On jardiance 10mg dailyNot on metformin 1000mg dailyBack on Ozempic 2mg weekly as he feels that his diarrhea has improved, advised to stop if getting any procedure 06/05/2024 Get labs Hyperlipidemia 71578716 E78.5 On atorvastat in 40mg dailyGet labs Vitamin D deficiency 347 44103 E55.9 Urinary incontinence 165 246289 R32 On finasterid e 5mg dailyOn flomax renewed 06/05/[address] Mares 09/04/2024 Gastroesop hageal reflux disease without esophagitis 508734295 K21.9 On pantoprazo le 40mg dailyGet EGD done, has seen Dr Spears Chronic pain 37259842 G8 9.29 Advised not to take any NSAIDs!Nee ds to see pain management , unable to provide any opiates or controlled substances OV 01/26/2024 :[facility] pain management 11/17/2023 His hydrocodon e was not prescribed , and this did coincide with his diarrhea, may be withdrawal ? OV 04/16/2024 :Now see Dr Rach aggarwal hydrocodon e as needed OV 04/26/2024 :On hydrocodon Bonnie gabapentin OV 06/05/2024 :On hydrocodon Bonnie gabapentin Sees Dr Watters OV 09/04/2024 :On hydrocodon Bonnie gabapentin Sees Dr Watters Atrial fibrillation 4943 [address] 05/22/[address] Wyman Obstructiv e sleep apnea syndrome 94360148 G47.33 Dr Tyson 08/10/2022 Proteinuria 65739893 R80 .9 On kerendiaLo w protein, more protein in diet and see nephrology Dr Ruiz 03/27/2024 Pain of le ft knee joint 1765271609 80172 M25.562 José Miguel PRASAD 01/25/2024 , s/p kenalog Diarrhea 11967652 R19.7 Has stopped the metformin, ozempicHis opiates were not renewed by pain management Also stop the iron tabsMay need to be on cholestyra mine or take lomotil as neededIf not better then see GI OV 04/16/2024 :On cholestyra minaShould see GI to determine the cause of the diarrhea OV 04/26/2024 :Dr Spears 04/11/2024 , to get EGD and C-scope OV 06/05/2024 : Get EGD and C-scope OV 09/04/2024 : To get EGD and C-scope Neuropathy 033177918 G62 .9 Sees his manager of investigations Is on qutenza (capsacin) Pruritic rash 69238696 L 28.2 Has noted a rash underneath the abdominal fold, none today, but has used clot-betam ethasone in the past with good reliefRene w the clotrimazo le-betamet hasone cream as needed Lesion of skin of face 4270821499 06 L98.9 Sees his dermatolog ist in [place] , [facility] hyperemic lesion noted on the L scalp and R mid neck Erectile dysfunction 860 345947 F52.21 On sildenafil Does well [id number] Rafael Mares MD [facility] [address], [address] [place] [address] 09/12/2024 13:53:44 09/12/2024 15:13:23 Urinary incontinence 991995228 R32 Benign pro static hyperplasia with outflow obstruction 934463259 N40.1 [id number] Tiana bryant MD [facility] [address] [place] [address], [place] [address] 1 12/06/2024 09:01:34 12/06/2024 09:45:25 Screening - NAD 382452194 Z13.9 C-scope: As per Dr Spears, EGD/C-scop e: 08/17/2024 Get yearly flu shotGet TdapGet Shingrix vaccineGet PCV #20Get COVID 19 vaccineGet RSV vaccine RTC in 3 months, do labs ER if worse, he did verbalize his understand ing of the above Coronary arteriosclerosis [id number] I25.10 ECHO 01/05/2024 : In a fibUS carotid 02/02/2024 HC 08/21/2024 : [facility] Dr Jenkins On ASANot on coreg 3.125mg bidOn dipyridamo le 75mg qidNot on isosorbide ER 30mg dailyOn NTGNot on sotalol 80mg bidOn torsemide 20mg dailyNot on valsartan 160mg bid, d/c 04/12/2024 On entresto 49-51mg bid Dr Spencer warfarin Sees Dr Zamzam britt OV 08/09/2024 , referred Dr Kathleen Wyman 09/27/2024 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 027311735 E11.9 On jardiance 10mg dailyNot on metformin 1000mg dailyBack on Ozempic 2mg weekly as he feels that his diarrhea has improved, advised to stop if getting any procedure 06/05/2024 Get labs Hyperlipidemia 07343344 E78.5 On atorvastat in 40mg dailyGet labs Vitamin D deficiency 347 00481 E55.9 Urinary incontinence 165 364610 R32 On finasterid e 5mg dailyOn flomax renewed 06/05/2024 Dr Mares 09/12/2024 Gastroesop hageal reflux disease without esophagitis 685174019 K21.9 On pantoprazo le 40mg dailyGet EGD done, has seen Dr Spears Chronic pain 17191550 G8 9.29 Advised not to take any NSAIDs!Nee ds to see pain management , unable to provide any opiates or controlled substances OV 01/26/2024 :[facility] pain management 11/17/2023 His hydrocodon e was not prescribed , and this did coincide with his diarrhea, may be withdrawal ? OV 04/16/2024 :Now see Dr Loyd n hydrocodon e as needed OV 04/26/2024 :On hydrocodon Bonnie gabapentin OV 06/05/2024 :On hydrocodon Bonnie gabapentin Sees Dr Watters OV 09/04/2024 :On hydrocodon Bonnie gabapentin Sees Dr Watters Atrial fibrillation [address] 05/22/[address] Wyman Obstructiv e sleep apnea syndrome 60178719 G47.33 Dr Tyson 08/10/2022 Proteinuria 73132333 R80 .9 On kerendiaLo w protein, more protein in diet and see nephrology Dr Ruiz 03/27/2024 Pain of le ft knee joint 8256565078 75351 M25.562 José Miguel PRASAD 01/25/2024 , s/p kenalog Diarrhea 97644306 R19.7 Has stopped the metformin, ozempicHis opiates were not renewed by pain management Also stop the iron tabsMay need to be on cholestyra mine or take lomotil as neededIf not better then see GI OV 04/16/2024 :On cholestyra minaShould see GI to determine the cause of the diarrhea OV 04/26/2024 :Dr Spears 04/11/2024 , to get EGD and C-scope OV 06/05/2024 : Get EGD and C-scope OV 09/04/2024 : To get EGD and C-scope OV 12/06/2024 : Dr Spears 11/16/2024 OV Neuropathy 575559418 G62 .9 Sees his manager of investigations Is on qutenza (capsacin) Pruritic rash 89284667 L 28.2 Has noted a rash underneath the abdominal fold, none today, but has used clot-betam ethasone in the past with good reliefRene w the clotrimazo le-betamet hasone cream as needed Lesion of skin of face 2667492548 06 L98.9 Se[place] dermatolog ist [place] , [place] hype[place]ic lesion noted on the L scalp and R mid neck Erectile dysfunction 860 247504 F52.21 On sildenafil Does well Paratrache al lymphadenopathy 84219129 R59.0 Dr Ruiz 11/01/2024 : f/u in [address] scan [id number] Rafael Mares MD [facility] [address], [address] [place] [address] 12/14/2024 15:01:37 12/14/2024 16:00:20 Urinary incontinence 528901679 R32 Benign pro static hyperplasia with outflow obstruction 068636775 N40.1 Health Concerns Section Related Observation LastModified by Organization Detai ls LastModified Time None Recorded Concern Status LastModified by Organization Details LastModified Time None Recorded Advance Directives Directive N: Payers Encounter Date Sequence Insurance Name Policy Number Policy Umana Covered Member ID Umana Member ID Guarantor Name 06/05/2024 1 [place] Mannie Nevarez [id number] 05 Mannie Nevarez 06/05/2024 2 [place] [id number] Mannie Nevarez [id number] 22 Mannie Nevarez 09/04/2024 1 [place] Mann[place] Nevarez [id number] Mannie Nevarez 09/04/2024 2 [place] [id number] Mannie Nevarez [id number] Mannie De La Torre Nevarez 09/12/2024 1 [place] Mannie Nevarez [id number] 05 Mannie Nevarez 09/12/2024 2 [place] [id number] Mannie Nevarez [id number] 22 Mannie De La Torre Nevarez 12/06/2024 1 [place] Mannie Nevarez [id number] 05 Mannie Nevarez 12/06/2024 2 [place] [id number] Mannie Nevarez [id number] 22 Mannie Nevarez 12/14/2024 1 [place] Mannie Nevarez [id number] 05 Mannie Nevarez 12/14/2024 2 [place] [id number] Mannie Nevarez [id number] 22 Mannie Nevarez Notes Date Note Type Note Provider Name and Address Organization Details Recorded Time 06/05/2024 text/html OV 10/20/2023:He re to establish care Past [email or web address] Reviewed social family and surgical history, does well today, get labs OV 01/26/2024: Here for his f/u apt, he has noted some diarrhea, no blood in stool, no abdominal pain, no N/V or constipation, normal appetite OV 04/16/2024:Here for his f/u apt, he was c/o a lesion on the glans penis, this is now resolved, he also has seen Dr Watters OV 04/26/2024: Here for his f/u apt, he is doing well today, he would like his clotrimazole cream renewed, has no new labs for now, is to now get a stress test with Dr Wyman prior to doing his EGD/C-scope, states that the cholestyramine has helped a lot and his diarrhea is much better OV 06/05/2024: Here for his f/u apt, he is doing well today, he did do the labs on 05/03/2024 Tiana Patterson MD [address], [address], [place], [address], [facility] [employer] 06/05/2024 15:48:10 09/04/2024 text/html OV 10/20/2023:He re to establish care Past hxCADHLDDMII Reviewed social family and surgical history, does well today, get labs OV 01/26/2024: Here for his f/u apt, he has noted some diarrhea, no blood in stool, no abdominal pain, no N/V or constipation, normal appetite OV 04/16/2024:Here for his f/u apt, he was c/o a lesion on the glans penis, this is now resolved, he also has seen Dr Watters OV 04/26/2024: Here for his f/u apt, he is doing well today, he would like his clotrimazole cream renewed, has no new labs for now, is to now get a stress test with Dr Wyman prior to doing his EGD/C-scope, states that the cholestyramine has helped a lot and his diarrhea is much better OV 06/05/2024: Here for his f/u apt, he is doing well today, he did do the labs on 05/03/2024 OV 09/04/2024: Here for his routine apt, he feels well today Tiana Patterson MD [address], [place], [address], [facility] [employer] 09/06/2024 18:53:52 09/12/2024 text/html this patient is taking tamsulosin and finasteride. He has some slight urinary incontinence occasionally. He is also diabetic and he is obese. He gets up maybe a few times per night but he was wondering for some reason if he can be started on Flomax but he did not realize tamsulosin was the same as Flomax He also drinks excessive amount of fluids throughout the day Rafael Mares MD [address], [place], [address], [facility] [employer] 09/12/2024 16:16:03 12/06/2024 text/html OV 10/20/2023:He re to establish care Past hxCADHLDDMII Reviewed social family and surgical history, does well today, get labs OV 01/26/2024: Here for his f/u apt, he has noted some diarrhea, no blood in stool, no abdominal pain, no N/V or constipation, normal appetite OV 04/16/2024:Here for his f/u apt, he was c/o a lesion on the glans penis, this is now resolved, he also has seen Dr Watters OV 04/26/2024: Here for his f/u apt, he is doing well today, he would like his clotrimazole cream renewed, has no new labs for now, is to now get a stress test with Dr Wyman prior to doing his EGD/C-scope, states that the cholestyramine has helped a lot and his diarrhea is much better OV 06/05/2024: Here for his f/u apt, he is doing well today, he did do the labs on 05/03/2024 OV 09/04/2024: Here for his routine apt, he feels well today OV 12/06/2024: Here for his routine apt, he has seen the GI Dr Spears and also done labs with his office, he feels well today, and is also now seeing Dr Watters, does c/o neuropathy, but he does take the gabapentin Tiana Patterson MD [address], [place], [address], [facility] [employer] 12/06/2024 12:26:32 12/14/2024 text/html this patient has had BPH for years he has been taking tamsulosin once a day and when he misses a dose he can definitely tell because his stream gets much slower He is on several different medications of blood pressure pills. He has obesity. But overall he says the medication works well when he is taking it Rafael Mares MD [address] [facility], [facility] [address], [place], [address], [facility] 12/14/2024 16:12:44
--- OUTSIDE RECORDS SUMMARY | 2025-01-10 08:12 | XMS_ITS | Encounter Summary ---
Author Organization [facility] Address [address] [place] [address] Care Team Providers Care Regional Trainer Name Role Phone Bennie Nova MD Primary Care Provider Alison ilfrancisco javier Encounter Details Date Type Department Care Team (Late st Contact Info) Description 11/21/2019 Lab Requisition [facility] [address] [facility], [place] [address] Hali Fletcher DO [address] [facility] [address] DEPT [place] [address] Social History Tobacco Use Types Packs/Day Years [...] Priority Date/Time Associated Diagnosis Comments DERMATOPATHOLOGY Routine 11/20/2019 12:0 0 AM FLOWER PICKER documented in this encounter Results * DERMATOPATHOLOGY (11/20/2019 12:00 AM FLOWER PICKER) Case Report Dermatopathology Report Case: [id number] Authorizing Provider: Hali Fletcher DO Collected: 11/20/2019 12:00 AM Ordering Location: [facility] D[facility] Lab Received: 11/21/2019 01:31 PM Pathologist: Warner Garcia MD Specimen: Skin, left alevism 0 7:23 PM [facility] DERMATOPATHOLOGY LABORATORY Final Diagnosis Specimen A. 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 0 7:23 PM [facility] Gross Description Specimen A: Received is one formalin filled container labeled with the patient's name and designated left alevism. The specimen consists of a shave measuring 3l4i4um. Jar 0. 0 7:23 PM [facility] DERMATOPATH[facility]Y [facility]ORY Microscopic Description Specimen A. SKIN, left alevism: Arising in the epidermis and extending into the dermis there are irregularly shaped aggregates of keratinocytes showing evidence of premature cornification. 0 7:23 PM [facility] Disclaimer An external and internal positive and negative controls are appropriate for the histochemical, immunohistochemical and immunofluorescence stain(s) in this case (if any), except where stated explicitly. The performance characteristics of the stain(s) cited in this report were developed and its performance characteristic determined by the Dermatopathology Laboratory at [facility], directed by Dr. Luba Garcia. These tests need not be, and therefore are not, approved by the [place] Food and Drug Administration. The tests are used for clinical purposes. Billing Codes Specimen Charges Stain Charges 16937 1 0 7:23 PM [facility] Embedded Images 0 7:23 PM [facility] Pathology/Cytolog y TISSUE SPECIMEN FROM SKIN / Unknown 11/20/2019 11/21/2019 1:31 PM [facility] Hali Fletcher DO LAB - PATHOLOGY/C YTOLOGY ORDERABLES DERMATOPATHOLOGY LABORATORY [facility] - Department of Dermatology [address] [place] [address], [address] [phone] documented in this encounter Visit Diagnoses Not on filedocumented in this encounter Care Teams Regional Trainer Relationship Specialty Start Date End Date Bennie Nova MD PCP - General Internal Medicine 10/10/12 documented as of this encounter
--- OUTSIDE RECORDS SUMMARY | 2025-01-10 08:12 | XMS_ITS ---
Author Organization [facility] Address [address] [facility] [address] [place] [address] Care Team Providers Care Cotton Program Technician Name Role Phone Nhan Gigi Unavailable [phone] SOCIAL HISTORY Sex Assigned At : Social History Observation Description Sex Assigned At Male PROBLEMS Problem Type ICD Code Onset Dates Problem Status W/U Status Risk SNOMED Code Notes Problem Chronic kidney disease, stage 2 (mild) (N18.2) Active confirmed Chronic kidney disease stage 2 ([id number]) Encounters Encounter Location Date Provider Diagnosis [place] [facility] [address] [facility] [address] [place] [address] 01/02/2025 Gigi Justin Chronic kidney disea se, stage 2 (mild) N18.2 ; Anxiety disorder, unspecified F41.9 ; Chronic fatigue, unspecified R53.82 ; Renal osteodystrophy N25.0 ; Heart failure, unspecified I50.9 ; 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 ; Hyperlipidemia, unspecified E78.5 ; CAD (coronary artery disease) I25.10 and Benign prostatic hyperplasia without lower urinary tract symptoms N40.0 ASSESSMENTS Encounter Date Diagnosis Assessment Notes Treatment [...] OF TREATMENT Next Appt Details Provider Name:Gigi Nhan , 02/13/2025 04:15:00 PM, [address] [facility] [address], [place], [place], [facility], Progress Notes * MANNIE CABELLODOB:1950 ( 74 yo F)Acc No.[id number]:01/02/2025 Progress Notes Patient: MANNIE CABELLO Provider: MD DENY, F.A.C.P, F.A.S.N. :1950 Age:74 Y Sex:Female Date:01/02/2025 Address:[address] [place] [address], [place] [address] Subjective: * Chief Complaints: * * Medical History: Objective: Assessment: * Assessment: 1. Chronic kidney disease, stage 2 (mild) - N18.2 (Primary) 2. Anxiety disorder, unspecified - F41.9 3. Chronic fatigue, unspecified - R53.82 4. Renal osteodystrophy - N25.0 5. Heart failure, unspecified - I50.9 6. Personal history of malignant neoplasm of larynx - Z85.21 7. Hyperlipidemia, unspecified - E78.5 8. CAD (coronary artery disease) - I25.10 9. Benign prostatic hyperplasia without lower urinary tract symptoms - N40.0 Plan: * Treatment: * Billing Information: * Visit Code: 34939 Office Visit, Est Pt., Level 4. * Procedure Codes: * ER TECHNICIAN Sign off status: Pending * Provider: MD DENY, Brandon.A.C.P, F.A.S.N. Date: 01/02/2025
--- OUTSIDE RECORDS SUMMARY | 2025-01-10 08:12 | XMS_ITS ---
Author Organization [facility] Address [address] [place] [address] Care Team Providers Care Patient Support Assistant Name Role Phone Gigi Justin Unavailable [phone] MEDICATIONS Medication SIG (Take, Route, Frequency, Duration) Notes Start Date End Date Status Ergocalciferol 1.25 MG (24061 UT) 1 capsule Orally Once a week for 90 day(s) 04/25/2024 09/29/2025 Active Calcitriol 0.25 MCG 1 capsule Orally Onc e a day for 90 day(s) 04/25/2024 09/29/2025 Active SOCIAL HISTORY Sex Assigned At : Social History Observation Description Sex Assigned At Male Encounters Encounter Location Date Provider Diagnosis [place] [facility] [address] [facility] [address] [place] [address] 01/02/2025 Gigi Justin PLAN OF TREATMENT Medication Medication Name Sig Start Date Stop Date Notes Ergocalciferol 1.25 MG (5000 0 UT) 1 capsule Orally Once a week for 90 day(s) 04/25/2024 09/29/2025 Calcitriol 0.25 MCG 1 capsule Orally Onc e a day for 90 day(s) 04/25/2024 09/29/2025 Next Appt Details Provider Name:Gigi Justin , 02/13/2025 04:15:00 PM, [address] [facility], [facility] [address], [place], [address], Progress Notes * CABELLOMANNIEDOB:1950 ( 74 yo F)Acc No.[id number]:01/02/2025 Patient: MANNIE CABELLO :1950 Age:74 Y Sex:Female Address:[address] [place] [address] [address], [place] [address] * Refills Refill Ergocalciferol Capsule, 1.25 MG (35104 UT), Orally, 13, 1 capsule, Once a week, 90 day(s), Refills=2 Refill Calcitriol Capsule, 0.25 MCG, Orally, 90 Capsule, 1 capsule, Once a day, 90 day(s), Refills=2 * * Date:
--- OUTSIDE RECORDS SUMMARY | 2025-01-10 08:12 | XMS_ITS | Continuity of Care Document ---
Author Organization [facility] Address [address] [place] [address] [place] [address] Phone Care Team Providers Care Gang Knife Fish Chopper Name Role Phone Hoa Gonzalez Unavailable Unavailable Procedures Procedure Date Eye Exam & Treatment Refraction Eye Exam & Treatment Eye Exam & Treatment Refraction Advance Directives Directive Yes / No Effective Date File Name No Information Encounters Encounter Description Practice Location Reason(s) For Visit Diagnoses Date Provider Providers Copied on Encounter [facility], [address] [place] [address] [address], [place], [place], [id number], tel:[phone] [facility] No Information Jan- 4-201 0 Lisa Solitario [address] [facility] [address] , [address], [place], [place], [facility], [place]. tel:[phone] [facility], [address] [place] [address] [address], [place], [place], [id number], [place] tel:[phone] [facility] No Information 9-200 9 Lisa Solitario [address], [place], [place], [facility], [place]. tel:[phone] [facility], [address] [place] [address] [address], [place], [place], [address], tel:[phone] [facility] No Information 7200 7 Lisa Camara. [address] , [address], [place], [address], [place]. tel:[phone] Family History Family Member Type Diagnosis Age At Onset No Information Payers Payer name Insurance type Covered constitution party ID Authorheidy guerrero(s) [facility] Out Of State [id number] Social History Type Description Quantity Date Captured [...]
[2025-01-10 08:44] LABS: INR 2.5; Prothrombin Time 27.3 Seconds (11.1-14.7)
== END 2025-01-10 07:48 | disposition home or self-care (01) ==
PROVIDERS: PCP Internal Medicine; Visit Provider Internal Medicine Cardiovascular Disease
DX: I48.0 Paroxysmal atrial fibrillation (principal); Z95.2 Presence of prosthetic heart valve; Z79.01 Long term (current) use of anticoagulants
CPT/HCPCS: 36415; 85610

== ENCOUNTER 2025-01-29 08:14 | Outpatient (CLI) | payer MEDICARE, SELFPAY ==
--- NOTE | ~2025-01-29 | CT_ITS ---
EXAMINATION: CT chest abdomen pelvis w con DATE: 01/29/2025 08:47 INDICATION: Lymphadenopathy TECHNIQUE: Computed tomography (CT) of the chest, abdomen, and pelvis was performed with 100 mL Omnip aque-350 intravenous contrast. Automated exposure control and iterative reconstruction technique were employed. The dose-length product was 1728.15 mGy-cm. COMPARISON: None FINDINGS: CHEST CT: Small right and trace left posterior layering pleural effusions with mild dependent atelectasis in madina th lungs. Calcified nodules in the right lower lobe along with calcified right hilar and mediastinal lymph nodes consistent with old granulomatous disease. No pneumonia or pulmonary edema. Cardiomegaly. Atherosclerotic coronary artery calcific lesion. Aortic valve repair. Dual-lead cardiac pacemaker wi th lead tips at the right atrial appendage and at the right ventricle. Thoracic aorta is normal in ca liber with no dissection. Single mildly enlarged right paratracheal lymph node which measures 2.5 x 1 .5 cm and which may be reactive. No other pathologically enlarged thoracic lymphadenopathy. Small sli ding-type hiatal hernia. Severe thoracic spondylosis with bridging osteophytes at multiple levels con sistent with diffuse idiopathic skeletal hyperostosis (DISH). ABDOMEN/PELVIS CT: Sleeve gastrectomy with suture line along the greater curvature of the stomach. Calcified gallstones in the dependent aspect of the otherwise normal-appearing gallbladder. Multiple splenic calcification s consistent with old granulomatous disease. Pancreas, bilateral adrenal glands and right kidney are normal. 5 mm nonobstructing stone at a lower pole calyx of the left kidney with no hydronephrosis. Madina wels including the appendix are normal. Bladder is normal. No free intraperitoneal gas or fluid. No p athologically enlarged abdominal or pelvic lymphadenopathy. Mild lumbar spondylosis. Moderate bilater al hip and sacroiliac osteoarthritis. IMPRESSION: 1. Single mildly enlarged right paratracheal lymph node which is most likely reactive. No other patho logically enlarged thoracic, abdominal or pelvic lymphadenopathy. 2. Cardiomegaly. 3. Small right and trace left pleural effusions. 4. Cholelithiasis. 5. 5 mm nonobstructing left renal stone. Reviewed, dictated and finalized at location B. IMPRESSION: 1. Single mildly enlarged right paratracheal lymph node which is most likely re active. No other pathologically enlarged thoracic, abdominal or pelvic lymphade nopathy. 2. Cardiomegaly. 3. Small right and trace left pleural effusions. 4. Cholelithiasis. 5. 5 mm nonobstructing left renal stone.
--- OUTSIDE RECORDS SUMMARY | 2025-01-29 08:35 | XMS_ITS | Clinical Summary ---
Author Organization [facility] Address [address] [facility] [place] [address] Care Team Providers Care Industrial Maintenance Repairer Name Role Phone Bennie Nova MD Primary Care Provider Alison jeronimo Source Comments [facility],non-owned Affiliates and Associated Physician Practices is amultiple site organization consisting of ambulatory clinics and hospital sitesin [place], [place], [place] and [place]. This disclosure is being madepursuant to the Care Everywhere program and may not contain all information available regarding this patient. Last updated 18.[facility] Allergies No known active allergies Medications * [...] Comments Blood Pressure 182/85 10/09/2012 3:10 PM NEWSCAST DIRECTOR Pulse 70 10/09/2012 3:10 PM NEWSCAST DIRECTOR Temperature 36.7 C (98.1 F) 12/29/2010 11:35 AM NEWSCAST DIRECTOR Respiratory Rate 16 12/29/2010 11:35 AM NEWSCAST DIRECTOR Oxygen Saturation - - Inhaled Oxygen Concentration - - Weight 173.3 kg (382 lb) 10/09/2012 3:10 PM NEWSCAST DIRECTOR Height 177.8 cm (5' 10 ) 10/09/2012 3:10 PM NEWSCAST DIRECTOR Body Mass Index 54.81 10/09/2012 3:10 PM NEWSCAST DIRECTOR Plan of Treatment Health Maintenance Due Date [...] to complete this topic MENINGOCOCCAL (Group B) VACC INE SHARED DECISION-MAKING Aged Out No longer eligibl e based on patient's age to complete this topic MENINGOCOCCAL GROUPS A/C/Y/W VACCINE Aged Out No longer eligible b ased on patient's age to complete this topic Care Teams Industrial Maintenance Repairer Relationship Specialty Start Date End Date Bennie Nova MD PCP - General Internal Medicine 10/10/12
--- OUTSIDE RECORDS SUMMARY | 2025-01-29 08:35 | XMS_ITS | Encounter Summary ---
Author Organization [facility] Address [address] [place] [address] Care Team Providers Care Water Gas Operator Name Role Phone Bennie Nova MD Primary Care Provider Alison ilfrancisco javier Encounter Details Date Type Department Care Team (Late st Contact Info) Description 04/13/2024 Lab Requisition [facility] - DermPath Lab [address] [facility], [place] [address] Lou Clark PA-C [address] [place] [address] Neoplasm of uncertain behavior of [...] AM CDT) Case Report Dermatopathology Report Case: [id number] Authorizing Provider: Lou Clark, Collected: 04/13/2024 12:00 AM HELEN Ordering Location: [facility] - Received: 04/16/2024 11:01 AM DermPath [...] characteristic determined by the Dermatopathology Laboratory at [facility], directed by Dr. Luba Garcia. These tests need not be, and therefore are not, approved by the [place] Food and Drug Administration. The tests are used for clinical purposes. Billing Codes Specimen Charges Stain Charges 23287 82156 1 1 4 1:29 PM CDT DERMATOPATHOLOGY LABORATORY Embedded Images 1:29 PM CDT DERMATOPATHOLOGY LABORATORY Pathology/Cytology TISSUE SPECIMEN FROM SKIN / Unknown 04/13/2024 04/16/2024 11:01 AM CDT Miscellaneous samples (specimen) TISSUE SPECIMEN FROM SKIN / Unknown 04/13/2024 04/16/2024 11:01 AM CDT Lou Clark PA-C LAB - PATHOL OGY/CYTOLOGY ORDERABLES DERMATOPATHOLOGY LABORATORY [facility] - Department of Dermatology [facility] [address] [place] [address], [address] [phone] documented in this encounter Visit Diagnoses Diagnosis Neoplasm of uncertain behavior of skin documented in this encounter Care Teams Water Gas Operator Relationship Specialty Start Date End Date Bennie Nova MD PCP - General Internal Medicine 10/10/12 documented as of this encounter
--- OUTSIDE RECORDS SUMMARY | 2025-01-29 08:35 | XMS_ITS | Data Portability ---
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 Operator Name Role Phone NAHED PATTERSON Primary Care Provider NAHED PATTERSON Referring Provider STELLA WYMAN Business Information Analyst GIGI RUIZ Furnace Operator [employer] Assessment Encounter Date Assessment Date Assessment LastModified [...] Lab urinalysi s, dipstick 2024 025 ROSA [facility], [address] [facility] [address], [place], [address], 12/17/2024 10:49:09 lipid panel, serum [email or web address] [place] [address] (Lab), [address] [place], [address], 12/06/2024 09:45:12 CBC w/ auto diff [email or web address] (Lab), [address] [place], [address], 12/06/2024 09:45:12 CMP, serum or plasma [address] (Lab), [address] [place], [address], 12/06/2024 09:45:13 TSH, serum or plasma [address] (Lab), [address] [place], [address], 12/06/2024 09:45:13 vitamin D, 25-hydrox y, total, serum [address] (Lab), [address] [place], [address], 12/06/2024 09:45:13 glycohemo globin, total, blood [address] (Lab), [address] [place], [address], 12/06/2024 09:45:12 microalbu min, urine [address] (Lab), [address] [place], [address], 12/06/2024 09:45:12 lipid panel, serum [address] (Lab), [address] [place], [address], 09/10/2024 10:02:41 CBC w/ auto diff [address] (Lab), [address] [place], [address], 09/10/2024 10:02:41 CMP, serum or plasma [address] (Lab), [address] [place], [address], 09/10/2024 10:02:41 TSH, serum or plasma [address] (Lab), [address] [place], [address], 09/10/2024 10:02:41 vitamin D, 25-hydrox y, total, serum [address] (Lab), [address] [place], [address], 09/10/2024 10:02:41 glycohemo globin, total, blood [address] (Lab), [address] [place], [address], 09/10/2024 10:02:41 microalbu min, urine [address] (Lab), [address] [place], [address], 09/10/2024 10:02:41 lipid panel, serum 2023 [facility] (Lab), [address] [place], [address], 07/02/2024 14:54:00 CBC w/ auto diff 2023 [facility] (Lab), [address] [place], [address], 07/02/2024 14:34:27 CMP, serum or plasma 2023 [facility] (Lab), [address] [place], [address], 08/31/2024 11:43:26 TSH, serum or plasma 2023 024 [facility] (Lab), [address] [place], [address], 08/31/2024 12:03:05 vitamin D, 25-hydrox y, total, serum [email or web address] [place] [address] (Lab), [address] [place], [address], 12/03/2024 12:43:14 glycohemo globin, total, blood 2023 024 [facility] (Lab), [address] [place], [address], 09/03/2024 14:39:57 microalbu min, urine 2023 024 [facility] (Lab), [address] [place], [address], 08/31/2024 11:40:26 Referral nephrolog ist referral - Please call patient to schedule an appointme nt. Thank you. 2024 025 [email or web address] Gigi Ruiz MD (Nephrology, [address] [facility], [address], [place], [address], 01/15/2025 18:05:31 pulmonolo gist referral - Please call patient to schedule an appointme nt. Thank you. 2024 025 FLETCHER Aldridge COILER-C, [address] [facility], [address], [place], [address], 12/10/2024 15:15:25 urologist referral - Please call patient to schedule an appointme nt. Thank you. 2024 025 [email or web address] Rafael Mares, [address] [facility], [address], [place], [address], 12/10/2024 15:04:30 podiatris t referral - Please call patient to schedule an appointme nt. Thank you. ( I believe this patient is already being followed by your office) 2024 025 FLETCHER Wu DPM, [address], [address], [place], [address], 12/10/2024 14:50:39 cardiolog ist referral - Please call patient to schedule an appointme nt. Thank you. 2024 025 FLETCHER Birmingham MD, [address], [address], [place], [address], 01/09/2025 15:36:36 nephrolog ist referral 2023 024 tammy Ruiz MD (Nephrology, [address], [address], [place], [address], 09/10/2024 10:02:41 pulmonolo gist referral - Please call patient to schedule. 2023 024 [email or web address] Pham MIXONP-C, [address] [facility], [facility] [address], [place], [address], 09/21/2024 13:26:19 urologist referral - Please call patient to schedule. 2023 024 ROSA Mares, [address] [facility], [facility] [address], [place], [address], 09/12/2024 16:30:27 podiatris t referral - Please call patient to schedule. 2023 024 [email or web address] Wu DPM, [address], [address], [place], [address], 11/15/2024 09:52:52 cardiolog ist referral 2023 024 tammy Wyman MD, [address] [facility], [facility] [address], [place], [address], 09/10/2024 10:02:41 nephrolog ist referral 2023 024 [email or web address] Gigi Ruiz MD (Nephrology, [address], [address], [place], [address], 12/03/2024 12:43:33 pulmonolo gist referral 2023 024 [email or web address] Jorge Tyson MD, [address] [facility], [place], [address], 10/25/2024 18:26:15 podiatris t referral 2023 024 [email or web address] Marcelino Wu DPM, [address], [address], [place], [address], 10/25/2024 18:24:16 cardiolog ist referral 2023 024 [email or web address] Stella Wyman MD, [address], [address], [place], [address], 10/25/2024 18:24:43 Procedures None recorded. Surgeries None recorded. Imaging None recorded. Medication Orders tamsulosi n 0.4 mg capsule 2024 025 [facility] #[id number], [address], [place], [address], 12/14/2024 16:12:42 tamsulosi n 0.4 mg capsule 2023 024 [facility] #[id number], [address], [place], [address], 06/05/2024 15:26:30 Patient TargetsNo targets recorded. Patient Instructions Encounter Date Encounter Id Patient Instructions Last Modified By Organization Details Last Modified Time 09/12/2024 [id number] 1. The patient i s already taking tamsulosin and finasteride 2. I really do not think there is anything I can offer except limit his fluids but otherwise no other recommendations and just follow up as needed Not available 09/12/2024 16:15:42 12/14/2024 [id number] 1. BPH with obstruction 2. I will increase his tamsulosin to 2 capsules a day he will take it at 6:00 p.m. 3. He can either have his primary care refill the prescription or he can come back here in 1 year Not available 12/14/2024 16:12:13 Reason for Referral Spring Bender Referral for Type 2 diabetes mellitus without complication Referring Physician: Nahed Patterson Internal Medicine, Encounter Date: 06/05/2024 Business Information Analyst Referral for Co ronary arteriosclerosis Referring Physician: Nahed Patterson Internal Medicine, Encounter Date: 06/05/2024 Fashion Director Referral for O bstructive sleep apnea syndrome Referring Physician: Bernard Lieberman Medicine, Encounter Date: 06/05/2024 Furnace Operator Oil Or Gas Referral for Pr oteinuria Referring Physician: Bernard Lieberman Medicine, Encounter Date: 06/05/2024 Spring Bender Referral for Type 2 diabetes mellitus without complication Please call patient to schedule. Referring Physician: Bernard Lieberman, Encounter Date: 09/04/2024 Business Information Analyst Referral for Co ronary arteriosclerosis Referring Physician: Bernard Lieberman Medicine, Encounter Date: 09/04/2024 Fashion Director Referral for O bstructive sleep apnea syndrome Please call patient to schedule. Referring Physician: Bernard Lieberman Medicine, Encounter Date: 09/04/2024 Furnace Operator Oil Or Gas Referral for Pr oteinuria Referring Physician: Bernard Lieberman, Encounter Date: 09/04/2024 Urologist Referral for Urina ry incontinence Please call patient to schedule. Referring Physician: Bernard Lieberman Medicine, Encounter Date: 09/04/2024 Spring Bender Referral for Type 2 diabetes mellitus without complication Please call patient to schedule an appointment. Thank you. ( I believe this patient is already being followed by your office) Referring Physician: Nahed Patterson Internal Medicine, Encounter Date: 12/06/2024 Business Information Analyst Referral for Co ronary arteriosclerosis Please call patient to schedule an appointment. Thank you. Referring Physician: Nahed Ptaterson Internal Medicine, Encounter Date: 12/06/2024 Fashion Director Referral for O bstructive sleep apnea syndrome Please call patient to schedule an appointment. Thank you. Referring Physician: Nahed Patterson Internal Medicine, Encounter Date: 12/06/2024 Furnace Operator Oil Or Gas Referral for Pr oteinuria Please call patient to schedule an appointment. Thank you. Referring Physician: Nahed Patterson Internal Medicine, Encounter Date: 12/06/2024 Urologist Referral for Urina ry incontinence Please call patient to schedule an appointment. Thank you. Referring Physician: Nahed Patterson Internal Medicine, Encounter Date: 12/06/2024 Results Created Date Observation Date Name Description Value Unit Range Abnormal Flag Note LastModifiedBy Organization Detail LastModifiedTime 08/31/2008/31/2024 CBC/C OMPLE TE BLD COUNT W/DIF F white blood cells 7.4 x10'3 /uL 4.2-10 .8 Not Available [facility] (Lab) [address] [place], [address], 08/31/2024 11:18:30 08/31/20 24 08/31/2024 CBC/C OMPLE TE BLD COUNT W/DIF F red blood cells 4.90 x10'6 /uL 4.10-5 .80 Not Available [facility] (Lab) [address] [place], [address], 08/31/2024 11:18:30 08/31/20 24 08/31/2024 CBC/C OMPLE TE BLD COUNT W/DIF F hemoglobin 14.9 g/dL 13.2-1 7.0 Not Available [facility] (Lab) [address] [place], [address], 08/31/2024 11:18:30 08/31/20 24 08/31/2024 CBC/C OMPLE TE BLD COUNT W/DIF F hematocrit 45.5 % 39.3-5 0.0 Not Available [facility] (Lab) [address] [place], [address], 08/31/2024 11:18:30 08/31/2008/31/2024 CBC/C OMPLE TE BLD COUNT W/DIF F mean red cell volume 92.9 fL 80.0-9 7.0 Not Available [facility] (Lab) [address] [place], [address], 08/31/2024 11:18:30 08/31/2008/31/2024 CBC/C OMPLE TE BLD COUNT W/DIF F mean red cell hemoglobin 30.4 pg 27.0-3 3.0 Not Available [facility] (Lab) [address] [place], [address], 08/31/2024 11:18:30 08/31/2008/31/2024 CBC/C OMPLE TE BLD COUNT W/DIF F mean RBC HGB concentratio n 32.7 g/dL 31.0-3 6.0 Not Available [facility] (Lab) [address] [place], [address], 08/31/2024 11:18:30 08/31/2008/31/2024 CBC/C OMPLE TE BLD COUNT W/DIF F red cell distribution width 14.0 % 11.8-1 5.5 Not Available [facility] (Lab) [address] [place], [address], 08/31/2024 11:18:30 08/31/2008/31/2024 CBC/C OMPLE TE BLD COUNT W/DIF F platelets 151 x10'3 /uL 150-40 0 Not Available [facility] (Lab) [address] [place], [address], 08/31/2024 11:18:30 08/31/2008/31/2024 CBC/C OMPLE TE BLD COUNT W/DIF F mean platelet volume 10.0 fL 9.0-12 .4 Not Available [facility] (Lab) [address] [place], [address], 08/31/2024 11:18:30 08/31/2008/31/2024 CBC/C OMPLE TE BLD COUNT W/DIF F neutrophils 78.8 % 39.0-7 2.0 high Not Available [facility] (Lab) [address] [place], [address], 08/31/2024 11:18:30 08/31/2008/31/2024 CBC/C OMPLE TE BLD COUNT W/DIF F lymphocytes 11.8 % 16.0-4 7.0 low Not Available [facility] (Lab) [address] [place], [address], 08/31/2024 11:18:30 08/31/2008/31/2024 CBC/C OMPLE TE BLD COUNT W/DIF F monocytes 8.1 % 5.0-12 .0 Not Available [facility] (Lab) [address] [place], [address], 08/31/2024 11:18:30 08/31/2008/31/2024 CBC/C OMPLE TE BLD COUNT W/DIF F eosinophils 0.5 % 1.0-7. 0 low Not Available [facility] (Lab) [address] [place], [address], 08/31/2024 11:18:30 08/31/2008/31/2024 CBC/C OMPLE TE BLD COUNT W/DIF F basophils 0.3 % 0.0-2. 0 Not Available [facility] (Lab) [address] [place], [address], 08/31/2024 11:18:30 08/31/2008/31/2024 CBC/C OMPLE TE BLD COUNT W/DIF F immature granulocytes 0.5 % 0.00-0 .50 Not Available [facility] (Lab) [address] [place], [address], 08/31/2024 11:18:30 08/31/2008/31/2024 CBC/C OMPLE TE BLD COUNT W/DIF F neutrophils, absolute count 5.82 x10'3 /uL 1.5-8. 0 Not Available [facility] (Lab) [address] [place], [address], 08/31/2024 11:18:30 08/31/2008/31/2024 CBC/C OMPLE TE BLD COUNT W/DIF F lymphocytes, absolute count 0.87 x10'3 /uL 1.07-3 .43 low Not Available [facility] (Lab) [address] [place], [address], 08/31/2024 11:18:30 08/31/2008/31/2024 CBC/C OMPLE TE BLD COUNT W/DIF F monocytes, absolute count 0.60 x10'3 /uL 0.29-0 .99 Not Available [facility] (Lab) [address] [place], [address], 08/31/2024 11:18:30 08/31/2008/31/2024 CBC/C OMPLE TE BLD COUNT W/DIF F eosinophils, absolute count 0.04 x10'3 /uL 0.02-0 .53 Not Available [facility] (Lab) [address] [place], [address], 08/31/2024 11:18:30 08/31/20 24 08/31/2024 CBC/C OMPLE TE BLD COUNT W/DIF F basophils, absolute count 0.02 x10'3 /uL 0.01-0 .08 Not Available [facility] (Lab) [address] [place], [address], 08/31/2024 11:18:30 08/31/20 24 08/31/2024 CBC/C OMPLE TE BLD COUNT W/DIF F immature granulocytes ,absolute 0.04 x10'3 /uL 0.00-0 .05 Not Available [facility] (Lab) [address] [place], [address], 08/31/2024 11:18:30 08/31/20 24 08/31/2024 CBC/C OMPLE TE BLD COUNT W/DIF F nucleated red blood cells 0.0 % -0 Not Available [facility] (Lab) [address] [place], [address], 08/31/2024 11:18:30 08/31/20 24 08/31/2024 CBC/C OMPLE TE BLD COUNT W/DIF F NRBC# 0.00 x10'3 /uL Not Available [facility] (Lab) [address] [place], [address], 08/31/2024 11:18:30 08/31/20 24 08/31/2024 MICRO ALBUM IN RANDO M URINE microalbumin , urine 19.9 mg/L 0.0-16 .6 high Not Available [facility] (Lab) [address] [place], [address], 08/31/2024 11:40:26 08/31/20 24 08/31/2024 LIPID PANEL cholesterol 151 mg/dL 140-19 9 NIH SHANA NSUS RECOM MENDA TION FOR VICKY STERO L: ADULT CHILD LOW RISK: <200 <170 BORDE RLINE : <200- 239 ----- HIGH RISK: >240 >200 Not Available [facility] (Lab) [address] [place], [address], 08/31/2024 11:43:16 08/31/2008/31/2024 LIPID PANEL triglyceride s 168 mg/dL 0-150 high NIH SHANA NSUS REPOR T RECOM MENDA TION FOR TRIGL YCERI VIOLETTA: ADULT CHILD LOW RISK: <150 ----- BODER LINE: 150-1 99 ----- HIGH RISK: >200 ----- Not Available [facility] (Lab) [address] [place], [address], 08/31/2024 11:43:16 08/31/2008/31/2024 LIPID PANEL HDL cholesterol 45 mg/dL 40- Not Available [facility] (Lab) [address] [place], [address], 08/31/2024 11:43:16 08/31/2008/31/2024 LIPID PANEL LDL cholesterol, [...] WILL NOT BE REPOR SHANNAN. Not Available [facility] (Lab) [address] [place], [address], 08/31/2024 11:43:16 08/31/2008/31/2024 COMPR EHENS DEANNA METAB OLIC PANEL sodium 138 mmol/ L 137-14 5 Not Available [facility] (Lab) [address] [place], [address], 08/31/2024 11:43:26 08/31/2008/31/2024 COMPR EHENS DEANNA METAB OLIC PANEL potassium 5.0 mmol/ L 3.5-5. 1 Not Available [facility] (Lab) [address] [place], [address], 08/31/2024 11:43:26 08/31/20 24 08/31/2024 COMPR EHENS DEANNA METAB OLIC PANEL chloride 104 mmol/ L 98-107 Not Available [facility] (Lab) [address] [place], [address], 08/31/2024 11:43:26 08/31/2008/31/2024 COMPR EHENS DEANNA METAB OLIC PANEL carbon dioxide 28 mmol/ L 22-30 Not Available [facility] (Lab) [address] [place], [address], 08/31/2024 11:43:26 08/31/2008/31/2024 COMPR EHENS DEANNA METAB OLIC PANEL anion gap 11.0 mmol/ L 14-22 low Not Available [facility] (Lab) [address] [place], [address], 08/31/2024 11:43:26 08/31/2008/31/2024 COMPR EHENS DEANNA METAB OLIC PANEL glucose 107 mg/dL 70-99 high Not Available [facility] (Lab) [address] [place], [address], 08/31/2024 11:43:26 08/31/2008/31/2024 COMPR EHENS DEANNA METAB OLIC PANEL BUN 16 mg/dL 8-19 Not Available [facility] (Lab) [address] [place], [address], 08/31/2024 11:43:26 08/31/20 24 08/31/2024 COMPR EHENS DEANNA METAB OLIC PANEL creatinine 0.76 mg/dL 0.66-1 .25 Not Available [facility] (Lab) [address] [place], [address], 08/31/2024 11:43:26 08/31/2008/31/2024 COMPR EHENS DEANNA METAB OLIC PANEL GFR >60 Refer ence Range : Burton ge GFR Healt hy Adult : >60 [...] or ethni c subgr oups, such as Hisok nics. Outsi de the valid ated tiffanie [...] calcu lator is avail able on the [facility] websi te: https ://fozia luna.caesar rg/pr ofess ional s/kdo qi/gf r_cal culat or Not Available [facility] (Lab) [address] [place], [address], 08/31/2024 11:43:26 08/31/2008/31/2024 COMPR EHENS DEANNA METAB OLIC PANEL alkaline phosphatase 64 U/L 38-126 Not Available [facility] (Lab) [address] [place], [address], 08/31/2024 11:43:26 08/31/20 24 08/31/2024 COMPR EHENS DEANNA METAB OLIC PANEL alanine aminotransfe rase 17 U/L 0-50 Not Available [facility] (Lab) [address] [place], [address], 08/31/2024 11:43:26 08/31/20 24 08/31/2024 COMPR EHENS DEANNA METAB OLIC PANEL aspartate aminotransfe rase 23 U/L 15-46 Not Available [facility] (Lab) [address] [place], [address], 08/31/2024 11:43:26 08/31/2008/31/2024 COMPR EHENS DEANNA METAB OLIC PANEL bilirubin, total 0.80 mg/dL 0.20-1 .30 Not Available [facility] (Lab) [address] [place], [address], 08/31/2024 11:43:26 08/31/2008/31/2024 COMPR EHENS DEANNA METAB OLIC PANEL calcium 9.4 mg/dL 8.4-10 .2 Not Available [facility] (Lab) [address] [place], [address], 08/31/2024 11:43:26 08/31/20 24 08/31/2024 COMPR EHENS DEANNA METAB OLIC PANEL total protein 6.0 g/dL 6.3-8. 2 low Not Available [facility] (Lab) [address] [place], [address], 08/31/2024 11:43:26 08/31/20 24 08/31/2024 COMPR EHENS DEANNA METAB OLIC PANEL albumin 3.7 g/dL 3.0-4. 4 Not Available [facility] (Lab) [address] [place], [address], 08/31/2024 11:43:26 08/31/20 24 08/31/2024 COMPR EHENS DEANNA METAB OLIC PANEL globulin 2.3 g/dL 2.6-4. 2 low Not Available [facility] (Lab) [address] [place], [address], 08/31/2024 11:43:26 08/31/2008/31/2024 COMPR EHENS DEANNA METAB OLIC PANEL A/G ratio 1.6 ratio 1.0-2. 0 Not Available [facility] (Lab) [address] [place], [address], 08/31/2024 11:43:26 08/31/2008/31/2024 TSH W/REF SAAD FT4 TSH with reflex free T4 0.684 uIU/m L 0.465- 4.680 Not Available [facility] (Lab) [address] [place], [address], 08/31/2024 12:03:05 08/31/2008/31/2024 VITAM IN D 25-HY DROXY [id number] 24.1 NG/mL 30-100 low Vitam in D Statu s: Defic ient: <20 ng/mL Insuf ficie nt: 20-29 ng/mL Suffi cient : 30-10 0 ng/mL Not Available [facility] (Lab) [address] [place], [address], 08/31/2024 12:05:58 08/31/2009/03/2024 HEMOG LOBIN A1C HA1C 5.9 % 4.0-6. 0 Diabe sal Scree elliott Crite jack: <5.7% Consi stent with absen ce of diabe sal 5.7-6 .4% Consi stent with incre ased risk for diabe sal (pred iabet es) >OR=6 .5% Consi stent with diabe sal REFER ENCE: Diabe sal Care 2015, 39(Zacarias ppl.1 ):s13 -s22 Not Available [facility] (Lab) [address] [place], [address], 09/03/2024 14:39:57 05/22/20 24 05/22/2024 cardi ac stres s test No observ ation record ed. [address] [facility] [address], [place], [address], 10/23/2024 09:06:42 09/14/20 24 09/14/2024 imagi ng/di agnos tic resul t No observ ation record ed. [address] [facility] [address], [place], [address], 10/23/2024 09:07:00 09/18/20 24 09/18/2024 CT, angio gram, chest + abdom en + pelvi s, w/ contr ast No observ ation record ed. [address] [place], [address], 10/23/2024 09:08:31 09/27/20 24 09/27/2024 XR, chest , 2 view No observ ation record ed. [address] [place], [address], 10/23/2024 09:08:46 10/24/20 24 10/24/2024 US, liver [facility] [address] [place] [address] Patien t Name: MANNIE NEVAREZ Access ion #: [id number] Sex: M : 1949 4 Dictat ed By: Lashell bryant Francisco Attend ing Physic franklyn: ALFONZO HEBERT Orderi allison Physic franklyn: ALFONZO HEBERT Exam Date: 2023 06:58 AM Exam Name: [...] at 2023 07:51: 24 AM Page 1 [email or web address] [facility] (One Call Scheduling) [address] [place] [address], [address], 11/27/2024 11:50:16 Result Notes None recorded. Problems Name Problem SNOMED Code Status Onset Date Resolution Date Notes Provider Name and Address Organization Details Recorded Time Spinal stenosis of lumbar region 68242286 Active 2022 Not Available [facility] 3 12:47:20 Morbid obesity 985686551 Active 2022 Not Available [facility] 3 12:47:20 Osteoarthr itis of knee 782424188 Active Not Available [facility] 3 12:47:20 Low back pain 870309661 Active 2022 Not Available [facility] 3 12:47:20 Osteoarthr itis 987552232 Active 2021 Not Available [facility] 3 12:47:20 Arthropath y of joint of hand 090771288 Active Not Available [facility] 3 12:47:20 Osteoarthr itis of right knee joint 1063319535049 00 Active 2022 BENNIE Luis null, [place] [employer] [facility] 3 08:45:57 Coronary arterioscl erosis 90798407 Active 2022 Nahed bryant MD [address], [address], [place], [address] , [facility] 3 13:56:07 Type 2 diabetes mellitus without complicati on 560867639 Active 2022 Nahed bryant MD [address], [address], [place], [address] , [facility] 3 13:56:16 Hyperlipid emia 25965649 Active 2022 Nahed bryant MD [address], [place], [address] , [facility] 3 13:56:56 Vitamin D deficiency 22044782 Active 2022 Nahed bryant MD [address], [place], [address] , [facility] 3 14:07:39 Urinary incontinen ce 849001420 Active 2022 Nahed bryant MD [address], [place], [address] , [facility] 3 14:23:53 Gastroesop hageal reflux disease without esophagiti s 221471474 Active 2022 Nahed bryant MD [address], [address], [place], [address] , [facility] 3 14:24:14 Chronic pain 99254217 Active 2022 Nahed bryant MD [address], [place], [address] , [facility] 3 14:24:54 Atrial fibrillati on 95829241 Active 2022 Nahed bryant MD [address], [place], [address] , [facility] 3 14:25:54 Obstructiv e sleep apnea syndrome 38684756 Active 2022 Nahed bryant MD [address], [address], [place], [address] , [facility] 3 14:26:12 Bilateral osteoarthr itis of knees 0713284362097 07 Active 2022 Sarah Rabago RMJose null, [place] - [facility] 3 08:33:04 Osteoarthr itis of left knee joint 9703162313091 09 Active 2022 Amaya Beth CMA null, [place] [facility] [place] [facility] 3 08:49:55 Chronic diarrhea 291628037 Active 2023 Evelina Best MA null, [place] [facility] 4 11:40:20 Proteinuri a [id number] Active 2023 Nahed bryant MD [address], [address], [place], [address] , [facility] 4 17:27:16 Pain of left knee joint [id number] 07 Active 2023 Nahed bryant MD [address], [address], [place], [address] , [facility] 4 09:36:49 Diarrhea 45764362 Active 2023 Nahed bryant MD [address], [place], [address] , [facility] [facility] 4 10:17:42 Chronic pain syndrome 538999451 Active 2023 Evelina Best MA null, [place] [facility] [place] [facility] 4 14:16:46 Neuropathy 773477765 Active 2023 Nahed bryant MD [address], [address], [place], [address] , [facility] [employer] [facility] 4 15:37:24 Pruritic rash 75454874 Active 2023 Nahed bryant MD [address], [address], [place], [address] , [facility] [employer] [facility] 4 09:27:08 Lesion of skin of face 513027369657 Active 2023 Nahed bryant MD [address], [address], [place], [address] , [facility] [employer] [facility] 4 09:29:33 Erectile dysfunctio n 987101359 Active 2023 Nahed bryant MD [address], [address], [place], [address] , [facility] [employer] [facility] 4 12:03:37 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 502117288 Active 2023 Rafael Mares MD [address], [address], [place], [address] , [facility] [employer] [facility] 4 16:15:23 Paratrache al lymphadeno tierra 85006118 Active 2023 Mildred Fam CMA null, [facility] [employer] [facility] 4 09:52:03 Non-alcoho lic fatty liver 261070228 Active 2023 Mildred Fam [employer]LE [employer] DEVELOPER null, [facility] [employer] [facility] 4 09:56:45 Hepatomega ly 46573907 Active 2023 Mildred Fam CMA null, [facility] [employer] [facility] 4 16:09:09 Notes:Medical History: Anxie ty Rhinitis with postnasal drip Obesity with very sevre OSAHS, AHI = 49, 01/22/16, off autoCPAP Hypertension Hyperlipidemia T2DM with neuropathy CAD s/p [place] ZACK Urge urinary incontinence BPH RLS Gout Knee/Hand OA on hydrocodone Procedure History: T&A 195 CABG 1993 AVR 2004 Gastric sleeve surgery 2016 Problem Notes None recorded. Procedures Surgical History Date Name Laterality Status Provider Name and Address Organization Details Recorded Time 03/16/20 Pacemaker completed Valarie Reed DYLONJose [place] [employer] [place] [employer] [facility] 04/26/2024 09:09:47 01/26/20 Medicare Wellness CPT Code, subsequent completed Eusebia Taylor MA [facility] [employer] [facility] 01/26/2024 10:46:49 11/07/19 00 bariatric operative procedure completed Bibiana Manzano [place] [employer] [facility] [employer] [facility] 09/12/2024 14:14:45 open heart surgery completed Valarie Reed Jose [place] [employer] [facility] [employer] [facility] 10/20/2023 14:17:29 Knee Replacement completed Valarie Reed Jose [facility] [employer] [facility] 10/20/2023 14:06:52 Knee completed Valarie Reed Jose [employer] [facility] [employer] [facility] 10/20/2023 14:07:29 Tonsillectomy completed Valarie Reed [facility] [employer] [facility] [employer] [facility] 10/20/2023 14:07:35 Imaging Results Imaging Date Name Status LastModified by [facility] Details LastModified Time 05/22/2024 cardiac stress test completed [address] [facility] [address], [place], [address], 10/23/2024 09:06:42 09/14/2024 imaging/diagn ostic result completed [address] [facility] [address], [place], [address], 10/23/2024 09:07:00 09/18/2024 CT, angiogram, chest + abdomen + pelvis, w/ contrast completed [address] [place], [address], 10/23/2024 09:08:31 09/27/2024 XR, chest, 2 view completed [address] [place], [address], 10/23/2024 09:08:46 10/24/2024 US, liver active [email or web address] [facility] ([facility]) [address] [place], [address], 11/27/2024 11:50:16 Procedure Notes None recorded. Medical Equipment None Reported. Allergies No known drug allergies Medications Name Sig Start Date Stop Date Status Note LastModified by Organization Details LastModified Time amoxicillin 500 mg capsule TAKE ONE CAPSULE BY MOUTH 3 TIMES DAILY FOR 5 DAYS active Not Available Not Available No t Available atorvastati n 40 mg tablet TAKE 1 [...] suspension for injection in office 01/25 completed [facility]: 0003- 0494- 20 Not Available Not Available Not Available doxycycline monohydrate 100 mg capsule TAKE 1 CAPSULE BY MOUTH TWICE A DAY FOR 7 DAYS 12/30 completed Not Available Not Available Not Available hydrocodone 7.5 mg-acetamin ophen 325 mg tablet TAKE 1 TABLET BY MOUTH EVERY DAY TO TWICE A DAY NEEDED active [...] administe red by the provider 11/10 completed [facility]: [phone]- [phone]- [phone] Not Available Not Available [...] , administe red by provider 12/15 completed [facility] [phone] -[phone] Not Available Not Available Not [...] INJECT 0.25MG UNDER THE SKIN ONCE WEEKLY [id number] THEN INCREASE TO 0.5MG ONCE WEEKLY [id number] 10/20 completed Not Available Not Available Not [...] Updated DateTime 4 175.26 cm 34.9 kg/m2 882880. 8 g 97.4 [degF] 78 /min 110 mm[Hg] 62 mm[Hg] BENNIE Saldivar [place] - [facility] [place] [employer] [facility] 4 14:56:36 Date Recorded Body height Body temperature Heart rate Systolic blood pressure Diastolic blood pressure Provider Name and Address Organization Details Last Updated DateTime 09/04/2024 175.26 cm 97.2 [degF] 78 /min 128 mm[Hg] 70 mm[Hg] BENNIE Saldivar [facility] [employer] [facility] 4 11:56:36 Date Recorded Body height Body mass index (BMI) Body weight Body temperature Oxygen saturation Oxygen saturation in Arterial blood by Pulse oximetry Heart rate Systolic blood pressure Diastolic blood pressure Provider Name and Address Organization Details Last Updated DateTime 4 172.72 cm 37.6 kg/m2 573360. 32 g 97.3 [degF] 96 % 96 % 85 /min 132 mm[Hg] 73 mm[Hg] Bibiana Manzano [facility] [employer] [facility] 4 14:13:00 Date Recorded Body height Body mass index (BMI) Body weight Body temperature Heart rate Oxygen saturation Oxygen saturation in Arterial blood by Pulse oximetry Pain severity - 0-10 verbal numeric rating [Score] - Reported Systolic blood pressure Diastolic blood pressure Provider Name and Address Organization Details Last Updated DateTime 5 172.72 cm 36.6 kg/m2 916372. 76 g 97.4 [degF] 89 /min 98 % 98 % 5 120 mm[Hg] 60 mm[Hg] Diane Clarke MA [facility] [employer] [facility] 5 09:06:59 Date Recorded Body height Body temperature Heart rate Oxygen saturation Oxygen saturation in Arterial blood by Pulse oximetry Systolic blood pressure Diastolic blood pressure Provider Name and Address Organization Details Last Updated DateTime 5 172.72 cm 97.2 [degF] 85 /min 97 % 97 % 116 mm[Hg] 93 mm[Hg] Bibiana Manzano [facility] [employer] [facility] 5 15:36:18 Social History Question Answer Notes LastModified by Organizat ion Details LastModified Time Tobacco Smoking Status Never Smoker Not Available [facility] 01/05/2023 12:45:57 Do You Have An Advance Directive? No Information not available 10/20/2023 What Is Your Level Of Alcohol Consumption? None [id number] Information not available 01/05/2023 Are You Blind [...] Type Of Diet Are You Following? REGULAR MIGRATION.[id number] [id number] Information not available 01/05/2023 What Is The Highest Grade Or Level Of School You Have Completed Or The Highest Degree You Have Received? [id number] Information not available 10/20/2023 Do You Have An Electrostatic Air Filter? No MIGRATION.38989 08095 Information not available 01/05/2023 Have There Been Any Changes To Your Family Or Social Situation? No Information not available 04/16/2024 What Is The Fluoride Status Of Your Home? Unknown Information not available 10/20/2023 Are There Any Guns Present In Your Home? Yes [id number].46200 [id number] Information not available 01/05/2023 Do You Have A Humidifier? Yes MIGRATION.34718 60469 Information not available 01/05/2023 Do You Use Insect Repellent Routinely? No Information not available 12/06/2024 Where Do You Live? [place] MIGRATION.58118 62498 Information not available 01/05/2023 Do You Have A Medical Power Of Chief Credit Officer? Yes Information not available 10/20/2023 Do You Have Moisture Problems In Your Home? No MIGRATION.57601 00773 Information not available 01/05/2023 What Was The Date Of Your Most Recent Tobacco Screening? 12/14/2024 [email or web address] Information not available 12/14/2024 Do You Have Any Pets? Yes MIGRATION.18341 94223 Information not available 01/05/2023 What Is Your Relationship Status? Information not available 10/20/2023 Do You Use Your Seat Belt Or Car Seat Routinely? Yes Information not available 10/20/2023 Do You Have Smoke And Carbon Monoxide Detectors In Your Home? Yes MIGRATION.64698 85977 Information not available 01/05/2023 Are You Passively Exposed To Smoke? No MIGRATION.81118 98994 Information not available 01/05/2023 Are There Any Smokers In Your House? No Information not available 10/20/2023 Do You Feel Stressed (tense, Restless, Nervous, Or Anxious, Or Unable To Sleep At Night)? [id number] Information not available 10/20/2023 Do You Use Any Illicit Or Recreational Drugs? No Information not available 10/20/2023 Do You Use Sunscreen Routinely? No MIGRATION.84816 39528 Information not available 01/05/2023 Has Tobacco Cessation Counseling Been Provided? No N/a Information not available 10/20/2023 Have You Recently Traveled Abroad? No MIGRATION.54868 46732 Information not available 01/05/2023 Do You Have Any Dietary Restrictions? No MIGRATION.24501 25093 Information not available 01/05/2023 Do You Or [...] Organization Details LastModified Time Father Heart disease [id number] Not available 01/05/2023 12:45:59 Father Hypertensive disorder [id number] Not available 01/05/2023 12:45:59 Father Diabetes mellitus [id number].010 [id number] Not available 01/05/2023 12:45:59 Medical History Condition Response BLINDNESS N KIDNEY STONES N MRSA N CARPAL TUNNEL SYNDROME N LUNG DISEASE/DISORDER N HISTORY OF DRUG ABUSE N COPD N RADIATION / CHEMOTHERAPY N SPORTS INJURY N ANKLE PAIN N BLOOD DISEASES N SCHIZOPHRENIA N SHINGLES N SHOULDER PAIN N DEPRESSION (INCLUDING POST ) N BOWEL PROBLEMS N STROKE/TIA N KNEE PAIN N ULCERS [...] N NEUROPATHY N AIDS/HIV N FRACTURES N HYPERTENSION Y ELBOW PAIN N TOURETTE'S N Metal allergy N ANXIETY DISORDER N BLOOD TRANSFUSION N ANEMIA/BLOOD DISORDER N BIPOLAR DISORDER N BRONCHITIS N OSTEOARTHRITIS N TUBERCULOSIS N FOOT PROBLEM N HEART VALVE DISORDERS Y SLEEP APNEA Y SOFT TISSUE INJURY N ALLERGIES/HAYFEVER N INFECTIOUS DISEASE N HEART ARRHYTHMIA N [...] SNOMED-CT Code Diagnosis ICD10 Code Diagnosis Note [id number] [facility] [address] [place] [address] 02/18/2021 00:00:00 02/18/2021 11:32:06 [id number] [facility] [address] [place] [address] 06/19/2021 00:00:00 06/19/2021 14:55:34 [id number] [facility] [address] [place] [address] 11/17/2021 00:00:00 11/17/2021 15:32:34 [id number] [facility] [address] [place] [address] 01/12/2022 00:00:00 01/12/2022 10:01:46 [id number] [facility] [address] [place] [address] 2022 00:00:00 2022 14:19:26 [id number] [facility] [address] [place] [address] 05/26/2022 00:00:00 05/26/2022 15:15:44 [id number] [facility] [address] [place] [address] 08/10/2022 00:00:00 08/10/2022 10:20:52 [id number] [facility] [address] [place] [address] 09/08/2022 00:00:00 09/08/2022 09:38:15 [id number] [facility] [address] [place] [address] 11/25/2022 00:00:00 11/25/2022 09:19:23 [id number] [facility] [address] [place] [address] 12/17/2022 00:00:00 12/17/2022 10:08:24 [id number] [facility] [address] [place] [address] 12/23/2022 00:00:00 12/23/2022 09:20:24 [id number] [facility] [address] [place] [address] 12/30/2022 00:00:00 12/30/2022 09:33:05 [id number] OSMAR Suarez [facility] [address] [place] [address] 03/25/2023 08:38:13 03/25/2023 09:26:01 Osteoarthritis of right knee joint 5540030884 72289 M17.11 [id number] OSMAR Suarez [facility] [address] [place] [address] 06/24/2023 08:44:09 06/24/2023 09:15:28 Osteoarthritis of right knee joint 0819307223 98344 M17.11 [id number] Nahed bryant MD [facility] [address] [facility], [address] [place] [address] 10/20/2023 13:47:19 10/20/2023 15:03:58 Screening - NAD 438716620 Z13.9 C-scope: Get yearly flu shotGet TdapGet Shingrix vaccineGet PCV #20Get COVID 19 vaccineGet RSV vaccine RTC in 3 months, do labs ER if worse, he did verbalize his understand ing of the above Coronary arteriosclerosis 26137110 I25.10 On ASAOn dipyridamo le 75mg qidOn isosorbide ER 30mg dailyOn NTGOn sotalol 80mg bidOn torsemide 20mg dailyOn valsartan 160mg bidOn warfarin Sees Dr Wyman, INR to be done by [facility] 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 142315884 E11.9 On jardiance 10mg dailyOn metformin 1000mg dailyOn Ozempic 2mg weekly Get labs Hyperlipidemia 50395327 E78.5 Screening for malignant neoplasm of prostate 384911658 Z12.5 Vitamin D deficiency 347 46250 E55.9 Urinary incontinence 165 643117 R32 On finasterid e 5mg daily Gastroesop hageal reflux disease without esophagitis 221298630 K21.9 On pantoprazo le 40mg dailyGet EGD done Chronic pain 73965910 G8 9.29 Advised not to take any NSAIDs!Nee ds to see pain management , unable to provide any opiates or controlled substances Atrial fibrillation 4943 [address] I48[address] Wyman Obstructiv e sleep apnea syndrome 29899908 G47.33 Screening for malignant neoplasm of colon 120524024 Z12.11 [id number] Jorge Richard MD [facility] [address] [place] [address] 10/26/2023 08:26:07 10/26/2023 09:13:32 Osteoarthritis of right knee joint 6802841850 98081 M17.11 [id number] Nahed bryant MD [facility] [address] [facility], [facility] [address] [place] [address] 01/26/2024 08:52:47 01/26/2024 10:22:16 Screening - NAD 245149687 Z13.9 C-scope: Get this done Get yearly flu shotGet TdapGet Shingrix vaccineGet PCV #20Get COVID 19 vaccineGet RSV vaccine RTC in 3 months, do labs ER if worse, he did verbalize his understand ing of the above Coronary arteriosclerosis 36556483 I25.10 ECHO 01/05/2024 : In a fib On ASAOn dipyridamo le 75mg qidOn isosorbide ER 30mg dailyOn NTGOn sotalol 80mg bidOn torsemide 20mg dailyOn valsartan 160mg bidOn warfarin Sees Dr Wyman, INR to be done by [facility] 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 670973291 E11.9 On jardiance 10mg dailyNot on metformin 1000mg dailyNot on Ozempic 2mg weekly, stopped by Dr Wyman 01/12/2024 , d/t diarrhea Get labs Hyperlipidemia 42931474 E78.5 On atorvastat in 40mg dailyGet labs Vitamin D deficiency 347 67287 E55.9 Urinary incontinence 165 963567 R32 On finasterid e 5mg daily Gastroesop hageal reflux disease without esophagitis 677851823 K21.9 On pantoprazo le 40mg dailyGet EGD done Chronic pain 31972164 G8 9.29 Advised not to take any NSAIDs!Nee ds to see pain management , unable to provide any opiates or controlled substances OV 01/26/2024 :[facility] pain management 11/17/2023 His hydrocodon e was not prescribed , and this did coincide with his diarrhea, may be withdrawal ? Atrial fibrillation 4943 6004 I48.[address] Wyman Obstructiv e sleep apnea syndrome 75146919 G47.33 Dr Tyson 08/10/2022 Screening for malignant neoplasm of colon 375685109 Z12.11 Proteinuria 16744168 R80 .9 On [facility] eds to see nephrology Pain of le ft knee joint 6289541316 78772 M25.562 José Miguel PRASAD 01/25/2024 , s/p kenalog Diarrhea 69204347 R19.7 Has stopped the metformin, ozempicHis opiates were not renewed by pain management Also stop the iron tabsMay need to be on cholestyra mine or take lomotil as neededIf not better then see GI Adult heal th examination 257900248 Z00.00 Screening for disorder 165712351 Z13.9 [id number] OSMAR Suarez [facility] [address] [place] [address] 01/25/2024 08:59:32 01/25/2024 11:45:22 Osteoarthritis of left knee joint 5693441805 91235 M17.12 [id number] Nahed bryant MD [facility] [address] [place] [address] 04/16/2024 08:54:53 04/16/2024 09:30:32 Screening - NAD 759946902 Z13.9 C-scope: Get this done Get yearly flu shotGet TdapGet Shingrix vaccineGet PCV #20Get COVID 19 vaccineGet RSV vaccine RTC in 2 months, do labs ER if worse, he did verbalize his understand ing of the above Coronary arteriosclerosis 95917022 I25.10 ECHO 01/05/2024 : In a fib On ASAOn dipyridamo le 75mg qidOn isosorbide ER 30mg dailyOn NTGOn sotalol 80mg bidOn torsemide 20mg dailyOn valsartan 160mg bidOn warfarin Sees Dr Wyman, INR to be done by [facility] 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 565869715 E11.9 On jardiance 10mg dailyNot on metformin 1000mg dailyNot on Ozempic 2mg weekly, stopped by Dr Wyman 01/12/2024 , d/t diarrhea Get labs Hyperlipidemia 32894714 E78.5 On atorvastat in 40mg dailyGet labs Vitamin D deficiency 347 47817 E55.9 Urinary incontinence 165 205495 R32 On finasterid e 5mg daily Gastroesop hageal reflux disease without esophagitis 663709744 K21.9 On pantoprazo le 40mg dailyGet EGD done Chronic pain 49425913 G8 9.29 Advised not to take any NSAIDs!Nee ds to see pain management , unable to provide any opiates or controlled substances OV 01/26/2024 :[facility] pain management 11/17/2023 His hydrocodon e was not prescribed , and this did coincide with his diarrhea, may be withdrawal ? OV 04/16/2024 :Now see Dr Loyd n hydrocodon e as needed Atrial fibrillation 4943 6004 I48.[address] Wyman Obstructiv e sleep apnea syndrome 67191863 G47.33 Dr Tyson 08/10/2022 Screening for malignant neoplasm of colon 912233923 Z12.11 Proteinuria 76616502 R80 .9 On kerendiaNe eds to see nephrology Pain of le ft knee joint 2980787624 90625 M25.562 José Miguel PRASAD 01/25/2024 , s/p kenalog Diarrhea 69119172 R19.7 Has stopped the metformin, ozempicHis opiates were not renewed by pain management Also stop the iron tabsMay need to be on cholestyra mine or take lomotil as neededIf not better then see GI OV 04/16/2024 :On cholestyra minaShould see GI to determine the cause of the diarrhea Neuropathy 711069745 G62 .9 Sees his proposal editor Is on qutenza (capsacin) Pruritic rash 51677512 L 28.2 Lesion of skin of face 7006585525 06 L98.9 [facility] noted on the L scalp and R mid neck [id number] Nahed bryant MD [facility] [address] [facility] [address] [place] [address] 04/26/2024 08:23:58 04/26/2024 09:38:30 Screening - NAD 935121560 Z13.9 C-scope: Get this done Get yearly flu shotGet TdapGet Shingrix vaccineGet PCV #20Get COVID 19 vaccineGet RSV vaccine RTC in 2 months, do labs ER if worse, he did verbalize his understand ing of the above Coronary arteriosclerosis 58025830 I25.10 ECHO 01/05/2024 : In a fibUS carotid 02/02/2024 On ASAOn coregOn dipyridamo le 75mg qidOn isosorbide ER 30mg dailyOn NTGNot on sotalol 80mg bidOn torsemide 20mg dailyNot on valsartan 160mg bid, d/c 04/12/2024 On entresto 97-103mg bid Dr Wyamn 04/12/[address] Wyman, INR to be done by [facility] 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 833196763 E11.9 On jardiance 10mg dailyNot on metformin 1000mg dailyNot on Ozempic 2mg weekly, stopped by Dr Wyman 01/12/2024 , d/t diarrhea Get labs Hyperlipidemia 51832456 E78.5 On atorvastat in 40mg dailyGet labs Vitamin D deficiency 347 06456 E55.9 Urinary incontinence 165 576892 R32 On finasterid e 5mg daily Gastroesop hageal reflux disease without esophagitis 013960957 K21.9 On pantoprazo le 40mg dailyGet EGD done, has seen Dr Spears Chronic pain 04947815 G8 9.29 Advised not to take any [...] Dr Wyman Obstructiv e sleep apnea syndrome 99767763 G47.33 Dr Tyson 08/10/2022 Proteinuria 81484570 R80 .[address] Nhan 03/27/2024 Pain of le ft knee joint 9657925256 10213 M25.562 José Miguel Mcduffie PA 01/25/2024 , s/p kenalog Diarrhea 36004247 R19.7 Has stopped the metformin, ozempicHis opiates were not renewed by pain management Also stop the iron tabsMay need to be on cholestyra mine or take lomotil as neededIf not better then see GI OV 04/16/2024 :On cholestyra minaShould see GI to determine the cause of the diarrhea OV 04/26/2024 :Dr Spears 04/11/2024 , to get EGD and C-scope Neuropathy 160140441 G62 .9 Sees his proposal editor Is on qutenza (capsacin) Pruritic rash 16917048 L 28.2 Has noted a rash underneath the abdominal fold, none today, but has used clot-betam ethasone in the past with good reliefRene w the clotrimazo le-betamet hasone cream Lesion of skin of face 2812243757 06 L98.9 [facility] hyperem[facility] lesion noted on the L scalp and R mid neck [id number] MD FAMILIA [facility] [address] [facility] [address] [place] [address] 06/05/2024 14:41:48 06/05/2024 15:28:55 Screening - NAD 406917858 Z13.9 C-scope: Get this done Get yearly flu shotGet TdapGet Shingrix vaccineGet PCV #20Get COVID 19 vaccineGet RSV vaccine RTC in 3 months, do labs ER if worse, he did verbalize his understand ing of the above Coronary arteriosclerosis 96452856 I25.10 ECHO 01/05/2024 : In a fibUS carotid 02/02/2024 On ASAOn coreg 3.125mg bidOn dipyridamo le 75mg qidOn isosorbide ER 30mg dailyOn NTGNot on sotalol 80mg bidOn torsemide 20mg dailyNot on valsartan 160mg bid, d/c 04/12/2024 On entresto 97-103mg bid Dr Wyman 04/12/[address] Wyman, INR to be done by [facility] is now to get another procedure done by Dr Wyman as per his history 06/05/2024 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 503883955 E11.9 On jardiance 10mg dailyNot on metformin 1000mg dailyBack on Ozempic 2mg weekly as he feels that his diarrhea has improved, advised to stop if getting any procedure 06/05/2024 Get labs Hyperlipidemia 62154959 E78.5 On atorvastat in 40mg dailyGet labs Vitamin D deficiency 347 93405 E55.9 Urinary incontinence 165 527357 R32 On finasterid e 5mg dailyOn flomax renewed 06/05/2024 Gastroesop hageal reflux disease without esophagitis 247092020 K21.9 On pantoprazo le 40mg dailyGet EGD done, has seen Dr Spears Chronic pain 08496555 G8 9.29 Advised not to take any [...] Dr Wyman Obstructiv e sleep apnea syndrome 32222851 G47.33 Dr Tyson 08/10/2022 Proteinuria 92754935 R80 .9 Not on kerendiaDr Ruiz 03/27/2024 Pain of le ft knee joint 0448161607 98601 M25.562 José Miguel PRASAD 01/25/2024 , s/p kenalog Diarrhea 59275995 R19.7 Has stopped the metformin, ozempicHis opiates [...] 06/05/2024 : Get EGD and C-scope Neuropathy 044832170 G62 .9 Sees his proposal editor Is on qutenza (capsacin) Pruritic rash 78400735 L 28.2 Has noted a rash underneath the abdominal fold, none today, but has used clot-betam ethasone in the past with good reliefRene w the clotrimazo le-betamet hasone cream as needed Lesion of skin of face 6987306533 06 L98.9 Sees his dermatolog ist in [facility] hyperemic lesion noted on the L scalp and R mid neck [id number] Nahed bryant MD [facility] [address] [facility], [facility] [address] [place] [address] 09/04/2024 11:32:25 09/04/2024 12:23:42 Screening - NAD 106987497 Z13.9 C-scope: Get this done Get yearly flu shotGet TdapGet Shingrix vaccineGet PCV #20Get COVID 19 vaccineGet RSV vaccine RTC in 3 months, do labs ER if worse, he did verbalize his understand ing of the above Coronary arteriosclerosis 22295002 I25.10 ECHO 01/05/2024 : In a fibUS [...] 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 531760864 E11.9 On jardiance 10mg dailyNot on metformin 1000mg dailyBack on Ozempic 2mg weekly as he feels that his diarrhea has improved, advised to stop if getting any procedure 06/05/2024 Get labs Hyperlipidemia 46575137 E78.5 On atorvastat in 40mg dailyGet labs Vitamin D deficiency 347 44267 E55.9 Urinary incontinence 165 044366 R32 On finasterid e 5mg dailyOn flomax renewed 06/05/[address] Mares 09/04/2024 Gastroesop hageal reflux disease without esophagitis 589412680 K21.9 On pantoprazo le 40mg dailyGet EGD done, has seen Dr Spears Chronic pain 24037197 G8 9.29 Advised not to take any [...] Dr Wyman Obstructiv e sleep apnea syndrome 88098413 G47.33 Dr Tyson 08/10/2022 Proteinuria 35075312 R80 .9 On kerendiaLo w protein, more protein in diet and see nephrology Dr Ruiz 03/27/2024 Pain of le ft knee joint 3341321073 38449 M25.562 José Miguel PRASAD 01/25/2024 , s/p kenalog Diarrhea 46689464 R19.7 Has stopped the metformin, ozempicHis opiates [...] : To get EGD and C-scope Neuropathy 414513566 G62 .9 Sees his proposal editor Is on qutenza (capsacin) Pruritic rash 65149164 L 28.2 Has noted a rash underneath the abdominal fold, none today, but has used clot-betam ethasone in the past with good reliefRene w the clotrimazo le-betamet hasone cream as needed Lesion of skin of face 5262128298 06 L98.9 Sees his dermatolog ist in [facility] hyperemic lesion noted on the L scalp and R mid neck Erectile dysfunction 860 472167 F52.21 On sildenafil Does well [id number] Rafael Mares MD [facility] [place] [address] [place] [address] 09/12/2024 13:53:44 09/12/2024 15:13:23 Urinary incontinence 982391087 R32 Benign pro static hyperplasia with outflow obstruction 619488227 N40.1 [id number] Nahed bryant MD [facility] [address] [facility] [address] 1 12/06/2024 09:01:34 12/06/2024 09:45:25 Screening - NAD 859876387 Z13.9 C-scope: As per Dr Spears, EGD/C-scop e: 08/17/2024 Get yearly flu shotGet TdapGet Shingrix vaccineGet PCV #20Get COVID 19 vaccineGet RSV vaccine RTC in 3 months, do labs ER if worse, he did verbalize his understand ing of the above Coronary arteriosclerosis 66792613 I25.10 ECHO 01/05/2024 : In a fibUS [...] 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 694492038 E11.9 On jardiance 10mg dailyNot on metformin 1000mg dailyBack on Ozempic 2mg weekly as he feels that his diarrhea has improved, advised to stop if getting any procedure 06/05/2024 Get labs Hyperlipidemia 03454759 E78.5 On atorvastat in 40mg dailyGet labs Vitamin D deficiency 347 22330 E55.9 Urinary incontinence 165 934516 R32 On finasterid e 5mg dailyOn flomax renewed 06/05/2024 Dr Mares 09/12/2024 Gastroesop hageal reflux disease without esophagitis 758579445 K21.9 On pantoprazo le 40mg dailyGet EGD done, has seen Dr Spears Chronic pain 71476414 G8 9.29 Advised not to take any [...] Dr Wyman Obstructiv e sleep apnea syndrome 35653156 G47.33 Dr Tyson 08/10/2022 Proteinuria 47105292 R80 .9 On kerendiaLo w protein, more protein in diet and see nephrology Dr Ruiz 03/27/2024 Pain of le ft knee joint 0127944497 66721 M25.562 José Miguel PRASAD 01/25/2024 , s/p kenalog Diarrhea 09356850 R19.7 Has stopped the metformin, ozempicHis opiates [...] 12/06/2024 : Dr Spears 11/16/2024 OV Neuropathy 249922117 G62 .9 Sees his proposal editor Is on qutenza (capsacin) Pruritic rash 24212798 L 28.2 Has noted a rash underneath the abdominal fold, none today, but has used clot-betam ethasone in the past with good reliefRene w the clotrimazo le-betamet hasone cream as needed Lesion of skin of face 9886456778 06 L98.9 [place]olog ist [place] hyperemic lesion noted on the L scalp and R mid neck Erectile dysfunction 860 575451 F52.21 On sildenafil Does well Paratrache al lymphadenopathy 58885831 R59.0 Dr Ruiz 11/01/2024 : f/u in [address] scan [id number] Rafael Mares MD [facility] [address] [address] 12/14/2024 15:01:37 12/14/2024 16:00:20 Urinary incontinence 111814148 R32 Benign pro static hyperplasia with outflow obstruction 992868633 N40.1 Health Concerns Section Related Observation LastModified by Organization Kvng ls LastModified Time None Recorded Concern Status LastModified by Organization Details LastModified Time None Recorded Advance Directives Directive N: Payers Encounter Date Sequence Insurance Name Policy Number Policy Umana Covered Member ID Umana Member ID Guarantor Name 06/05/2024 1 [place] Mannie Nevarez [id number] Mannie Nevarez 06/05/2024 2 [place] [id number] Mannie Nevarez [id number] 22 Mannie Nevarez 09/04/2024 1 [place] Mannie Nevarez [id number] 05 Mannie Nevarez 09/04/2024 2 [place] [id number] Mannie Nevarez [id number] 22 Mannie Nevarez 09/12/2024 1 [place] Mannie Nevarez [id number] 05 Mannie Nevarez 09/12/2024 2 [place] [id number] Mannie Nevarez [id number] 22 Mannie Nevarez 12/06/2024 1 [place] Mannie Nevarez [id number] Mannie Nevarez 12/06/2024 2 [place] [id number] Mannie Nevarez [id number] 22 Mannie Nevarez 12/14/2024 1 [place] Mannie Nevarez [id number] 05 Mannie Nevarez 12/14/2024 2 [place] [id number] Mannie Nevarez [id number] 22 Mannie Nevarez Notes Date Note Type [...] he did do the labs on 05/03/2024 Nahed Patterson MD [address], [address], [place], [address], [employer] [facility] Animated Speech 06/05/2024 15:48:10 09/04/2024 text/html OV 10/20/2023:He re [...] his routine apt, he feels well today Nahed Pattersno MD [address], [address], [place], [address], [employer] [facility] Animated Speech 09/06/2024 18:53:52 09/12/2024 text/html this patient is [...] amount of fluids throughout the day Rafael Maers MD [address], [place], [address], [facility] [employer] [facility] Animated Speech 09/12/2024 16:16:03 12/06/2024 text/html OV 10/20/2023:He re [...] neuropathy, but he does take the gabapentin Nahed Patterson MD [address], [place], [address], [employer] [facility] Animated Speech 12/06/2024 12:26:32 12/14/2024 text/html this patient has [...] is taking it Rafael Mares MD [address], [address], [place], [address], [place] [facility] 12/14/2024 16:12:44
--- OUTSIDE RECORDS SUMMARY | 2025-01-29 08:35 | XMS_ITS | Clinical Summary ---
Author Organization [facility] [place] Address [address] [place] [address] Care Team Providers Care Experimental Mechanic Electrical Name Role Phone Tiana Patterson MD Primary [...] STL ABSTRACTION Provider, Abstract 11/01/2024 12:00 PM AUTOMOBILE REPOSSESSOR Office Visit [facility] - [place] [address] [place] [address] Baron Menjivar MD Lymphadenopathy (Primary Dx) [...] on file Legal Sex Male 3:06 PM AUTOMOBILE REPOSSESSOR Gender Identity Not on file Sexual Orientation Not on file Last Filed Vital Signs Vital Sign Reading Time Taken Comments Blood Pressure 131/79 11/01/2024 11:29 AM AUTOMOBILE REPOSSESSOR Pulse 84 11/01/2024 11:29 AM AUTOMOBILE REPOSSESSOR Temperature 36.6 C (97.8 F) 11/01/2024 11:29 AM AUTOMOBILE REPOSSESSOR Respiratory Rate 16 11/01/2024 11:29 AM AUTOMOBILE REPOSSESSOR Oxygen Saturation 96% 11/01/2024 11:29 AM AUTOMOBILE REPOSSESSOR Inhaled Oxygen Concentration - - Weight 112.5 kg (248 lb) 11/01/2024 11:29 AM AUTOMOBILE REPOSSESSOR Height 177.8 cm (5' 10 ) 11/01/2024 11:29 AM AUTOMOBILE REPOSSESSOR Body Mass Index 35.58 11/01/2024 11:29 AM AUTOMOBILE REPOSSESSOR Plan of Treatment Upcoming Encounters Date Type Department Care Team (Late st Contact Info) Description 02/08/2025 11:30 AM CDT Office Visit [facility] - [place] [address] [facility] [address] [place] [address] Tommy Ruiz MD [address] [facility] [address] [place] [address] Health Maintenance Due Date Last [...] A AND B BCBS SUPP Care Teams Experimental Mechanic Electrical Relationship Specialty Start Date End Date Tiana Patterson MD [address] [place] [address] PCP - General Internal Medicine 11/02/24
--- OUTSIDE RECORDS SUMMARY | 2025-01-29 08:35 | XMS_ITS | Patient Health Record ---
Author Organization [facility] Address [address] [place] [address] Care Team Providers Care Smt Machine Operator Name Role Phone Gigi Justin Unavailable [phone] REASON FOR REFERRAL No Information MEDICATIONS Medication SIG (Take, Route, Frequency, Duration) Notes Start Date End Date Status Ergocalciferol 1.25 MG (59697 UT) 1 capsule Orally Once a week [...] Problem Hyperlipidemia, unspecified (E78.5) Active confirmed Hyperlipidemia (77561901) Problem Anxiety disorder, unspecified (F41.9) Active confirmed Anxiety disorde r (741171560) Problem Heart failure, unspecified (I50.9) Active confirmed Heart failure (46679990) Problem Chronic kidney disease, stage 2 (mild) (N18.2) Active confirmed Chronic kidne y disease stage 2 (787294352) Problem Renal osteodystrophy (N25.0) Active confirmed Renal osteodystrophy (35869542) Problem Chronic fatigue, unspecified (R53.82) Active confirmed Chronic fatigue syndrome (disorder) (67919032) Problem 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) Active confirmed History of malignant neoplasm of larynx (818801592) Problem Benign prostatic hyperplasia without lower urinary tract symptoms (N40.0) Active confirmed Benign pros tatic hypertrophy without outflow obstruction (813682191) Problem CAD (coronary artery disease) (I25.10) Active confirmed Coronary artery disease (72214409) Encounters Encounter Location Date Provider Diagnosis [facility] [address] [facility] [place] [address] 03/23/2024 Gigi Justin Chronic kidney disea se, stage 3a N18.31 ; Anxiety disorder, unspecified F41.9 ; Chronic fatigue, unspecified R53.82 ; Renal osteodystrophy N25.0 and Heart failure, unspecified I50.9 [address] [place] [address] 04/04/2024 Gigi Justin Chronic kidney disea se, stage 3a N18.31 ; Anxiety disorder, unspecified F41.9 ; Chronic fatigue, unspecified R53.82 ; Renal osteodystrophy N25.0 and Heart failure, unspecified I50.9 [facility] [address] [place] [address] 04/25/2024 Gigi Singh Chronic kidney disea se, stage 3a N18.31 ; Anxiety disorder, unspecified F41.9 ; Chronic fatigue, unspecified R53.82 ; Renal osteodystrophy N25.0 and Heart failure, unspecified I50.9 [facility] [address] [place] [address] [facility] [address] [place] [address] 12/12/2024 Gigi Justin Chronic kidney disea se, stage 3a N18.31 ; 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 ; Hyperlipidemia, unspecified E78.5 ; CAD (coronary artery disease) I25.10 and Benign prostatic hyperplasia without lower urinary tract symptoms N40.0 [facility] [address] [place] [address] 12/26/2024 [facility] Office [address] [place] [address] 01/02/2025 Gigi Justin Chronic kidney disea se, stage 2 (mild) N18.2 ; Anxiety disorder, unspecified F41.9 ; Chronic fatigue, unspecified R53.82 ; Renal osteodystrophy N25.0 ; Heart failure, unspecified I50.9 ; 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 ; Hyperlipidemia, unspecified E78.5 ; CAD (coronary artery disease) I25.10 and Benign prostatic hyperplasia without lower urinary tract symptoms N40.0 [facility] [place] [facility] [address] [place] [address] 12/19/2024 Gigi Justin [facility] [address] [facility] 15 [place] [address] 01/02/2025 Gigi [facility] [address] [facility] 15 [place] [address] 04/25/2024 Gigi Justin ASSESSMENTS Encounter Date Diagnosis [...] Name:Gigi Justin , 02/13/2025 04:15:00 PM, [address] [facility], [facility] 15, [place], [address],
--- OUTSIDE RECORDS SUMMARY | 2025-01-29 08:35 | XMS_ITS | Data Portability ---
Author Organization [facility]GELIT[facility] LUCIANMyla Taylor Address [address] [place] [address] Assessment No assessment recorded. Plan of Treatment [...] 50 mcg/0.25mL dose 12/12/2020 completed WAYNE Nuñez MD - SI 12/12/2020 14:14:04 COVID-19, mRNA, LNP-S, PF, 100 mcg/0.5mL dose or 50 mcg/0.25mL dose 01/12/2021 completed Emily Carmona MA [facility] SI 01/12/2021 16:25:39 Past Encounters Encounter ID Performer Location Encounter Start Date Encounter Closed Date Diagnosis/Indication Diagnosis SNOMED-CT Code Diagnosis ICD10 Code Diagnosis Note [id number] ISAI Valdez 14 IM [address] [place] [address] 12/12/2020 12:21:04 12/12/2020 18:38:06 Administration of SARS-CoV-2 antigen vaccine 625658111 Z23 [id number] ISAI Valdez 14 IM 4 [place] [address] 01/09/2021 12:02:47 01/12/2021 07:55:43 Administration of SARS-CoV-2 antigen vaccine 321069163 Z23 Health Concerns Section Related Observation LastModified by Organization Detai ls LastModified Time None Recorded Concern Status LastModified by Organization Details LastModified Time None Recorded Advance Directives Directive None Recorded Payers Encounter Date Sequence Insurance Name Policy Number Policy Umana Covered Member ID Umana Member ID Guarantor Name 12/12/2020 1 [place] Reggie Nevarez [id number] 5 Reggie Nevarez 12/12/2020 2 [place] [id number] Reggie Nevarez [id number] Reggie Nevarez 01/09/2021 1 [place] Reggie Nevarez [id number] 5 Reggie Nevarez 01/09/2021 2 [place] [id number] Reggie Nevarez [id number] Reggie Nevarez
--- OUTSIDE RECORDS SUMMARY | 2025-01-29 08:36 | XMS_ITS ---
Author Organization [facility] Address [address] [place] [address] Care Team Providers Care Orchid Superintendent Name Role Phone Gigi Justin Unavailable [phone] SOCIAL HISTORY Sex Assigned At : Social History Observation Description Sex Assigned At Male Encounters Encounter Location Date Provider Diagnosis [place] [facility] [address] [facility] 15 [place] [address] 12/26/2024 Gigi Justin PLAN OF TREATMENT Next Appt Details Provider Name:Gigi Justin , 02/13/2025 04:15:00 PM, [address] [facility], [facility] 15, [place], [address], Progress Notes * MANNIE CABELLODOB:1950 ( 75 yo F)Acc No.[id number]:12/26/2024 Progress Notes Patient: MANNIE CABELLO Provider: MD DENY, Brandon.Jose.C.P, F.A.S.N. :1950 Age:74 Y Sex:Female Date:12/26/2024 Address:[address] [place], [place] [address] [address], [place] [address] Subjective: * Chief Complaints: * * Medical History: Objective: Assessment: Plan: * Treatment: * Billing Information: * Visit Code: * Procedure Codes: * Sign off status: Pending * Provider: MD DENY, Brandon.Jose.C.P, F.A.S.N. Date: 12/26/2024
--- OUTSIDE RECORDS SUMMARY | 2025-01-29 08:36 | XMS_ITS ---
Author Organization [facility] Address [address] [place] [address] Care Team Providers Care Kitchen Stewardess Name Role Phone Gigi Justin Unavailable [phone] MEDICATIONS Medication SIG (Take, Route, Frequency, Duration) Notes Start Date End Date Status Ergocalciferol 1.25 MG (69547 UT) 1 capsule Orally Once a week for 90 day(s) 04/25/2024 09/29/2025 Active Calcitriol 0.25 MCG 1 capsule Orally Onc e a day for 90 day(s) 04/25/2024 09/29/2025 Active SOCIAL HISTORY Sex Assigned At : Social History Observation Description Sex Assigned At Male Encounters Encounter Location Date Provider Diagnosis [facility] [address] [facility] [address] [place] [address] 01/02/2025 Gigi Justin PLAN OF TREATMENT Medication Medication Name Sig Start Date Stop Date Notes Ergocalciferol 1.25 MG (5000 0 UT) 1 capsule Orally Once a week for 90 day(s) 04/25/2024 09/29/2025 Calcitriol 0.25 MCG 1 capsule Orally Onc e a day for 90 day(s) 04/25/2024 09/29/2025 Next Appt Details Provider Name:Gigi Justin , 02/13/2025 04:15:00 PM, [address] [facility], [facility] 15, [place], [address], Progress Notes * CABELLOMANNIEDOB:1950 ( 75 yo F)Acc No.[id number]:01/02/2025 Patient: MANNIE CABELLO :1950 Age:74 Y Sex:Female Address:[address] [place] [address] [address], [place] [address] * Refills Refill Ergocalciferol Capsule, 1.25 MG (73049 UT), Orally, 13, 1 capsule, Once a week, 90 day(s), Refills=2 Refill Calcitriol Capsule, 0.25 MCG, Orally, 90 Capsule, 1 capsule, Once a day, 90 day(s), Refills=2 * * Date:
--- OUTSIDE RECORDS SUMMARY | 2025-01-29 08:36 | XMS_ITS | Clinical Summary ---
Author Organization [facility] Address [address] [place], [place] [address] Care Team Providers Care Coordinator Of Online Programs Name Role Phone Unavailable Primary Care Provider [...] age to complete this topic Insurance MEDICARE [facility]
--- OUTSIDE RECORDS SUMMARY | 2025-01-29 08:36 | XMS_ITS | Encounter Summary ---
Author Organization [facility] Address [address] [place] [address] Care Team Providers Care Rubber Goods Tester Name Role Phone Bennie Nova MD Primary Care Provider Alison ilfrancisco javier Encounter Details Date Type Department Care Team (Late st Contact Info) Description 11/21/2019 Lab Requisition [facility] [address] [facility], [place] [address] Hali Fletcher DO [address] [facility] 3 [place] [address] Social History Tobacco Use Types Packs/Day Years [...] Comments DERMATOPATHOLOGY Routine 11/20/2019 12:0 0 AM CUFF MATCHER documented in this encounter Results * DERMATOPATHOLOGY (11/20/2019 12:00 AM CUFF MATCHER) Case Report Dermatopathology Report Case: [id number] Authorizing Provider: Hali Fletcher DO Collected: 11/20/2019 12:00 AM Ordering Location: [facility] Lab Received: 11/21/2019 01:31 PM Pathologist: Warner Garcia MD Specimen: Skin, left yarsanism 0 7:23 PM [facility]ER[facility] Final Diagnosis Specimen A. 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 0 7:23 PM [facility] Gross Description Specimen A: Received is one formalin filled container labeled with the patient's name and designated left yarsanism. The specimen consists of a shave measuring 8s7m6ux. Jar 0. 0 7:23 PM [facility] Microscopic Description Specimen A. SKIN, left yarsanism: Arising in the epidermis and extending into the dermis there are irregularly shaped aggregates of keratinocytes showing evidence of premature cornification. 0 7:23 PM [facility] Disclaimer An external and internal positive and negative controls are appropriate for the histochemical, immunohistochemical and immunofluorescence stain(s) in this case (if any), except where stated explicitly. The performance characteristics of the stain(s) cited in this report were developed and its performance characteristic determined by the Dermatopathology Laboratory at [facility], directed by Dr. Luba Garcia. These tests need not be, and therefore are not, approved by the [place] Food and Drug Administration. The tests are used for clinical purposes. Billing Codes Specimen Charges Stain Charges 99273 1 0 7:23 PM [facility] Embedded Images 0 7:23 PM [facility] Pathology/Cytolog y TISSUE SPECIMEN FROM SKIN / Unknown 11/20/2019 11/21/2019 1:31 PM CUFF MATCHER Hali Fletcher DO LAB - PATHOLOGY/C YTOLOGY ORDERABLES DERMATOPATHOLOGY LABORATORY [facility] - Department of Dermatology [address] [place] [address], [address] [phone] documented in this encounter Visit Diagnoses Not on filedocumented in this encounter Care Teams Rubber Goods Tester Relationship Specialty Start Date End Date Bennie Nova MD PCP - General Internal Medicine 10/10/12 documented as of this encounter
--- OUTSIDE RECORDS SUMMARY | 2025-01-29 08:36 | XMS_ITS | Clinical Summary ---
Author Organization [facility] Address [address] [place] [address] Care Team Providers Care Visual Education Teacher Name Role Phone Bennie Nova MD Primary [...] on file Legal Sex Male 12:10 AM MECHANICAL ADJUSTER Gender Identity Not on file Sexual Orientation Not on file Obstetrics History Last Filed Vital Signs Vital Sign Reading Time Taken Comments Blood Pressure 128/84 10/02/2024 12:46 PM MECHANICAL ADJUSTER Pulse 88 10/02/2024 12:46 PM MECHANICAL ADJUSTER Temperature 36.7 C (98.1 F) 08/17/2024 9:05 AM CDT Respiratory Rate 16 10/02/2024 12:46 PM MECHANICAL ADJUSTER Oxygen Saturation 98% 10/02/2024 12:46 PM MECHANICAL ADJUSTER Inhaled Oxygen Concentration - - Weight 113.4 kg (250 lb) 10/02/2024 12:46 PM MECHANICAL ADJUSTER Height 177.8 cm (5' 10 ) 10/02/2024 12:46 PM MECHANICAL ADJUSTER Body Mass Index 35.87 10/02/2024 12:46 PM MECHANICAL ADJUSTER Plan of Treatment Health Maintenance Due Date [...] Screening-Colonoscopy 08/17/20342023 Medical Devices Implanted Type Area Rn New Grad Device Identifier Shelf Expiration Date Model / [...] Spears MD - 08/17/2024 8:17 AM CDT [facility] GI ENDOSCOPY Patient Name: Reggie Nevarez Procedure Date: 08/17/2024 8:17 AM Date of : 1950 Admit Type: Outpatient Age: 74 Gender: Male Attending MD: Meryl Spears M.D. Room: [facility] ENDOSCOPY ROOM 05 Note Status: Finalized Procedure: [...] polypectomy, one hemostaticclip was successfully placed. Clip cotton weigher operator: [employer]. Therewas no bleeding at the end of [...] Resected and retrieved. Clip was placed. Clip cotton weigher operator: [employer]. - Diverticulosis in the left colon. Biopsied. - The distal rectum and anal verge are normal on retroflexion view. Recommendation: - Resume previous diet. - Continue present medications. - Await pathology results. Meryl Spears M.D. Meryl Spears M.D. 08/17/2024 9:11:17 AM . Number of Addenda: 0 Note Initiated On: 08/17/2024 8:17 AM Recognized by the [employer] [place] [employer] Gastrointestinal Endoscopy for promoting quality in endoscopy Meryl Spears MD ENDOSCOPY PROCEDURES Kim l Result * eGFR (07/29/2023 10:21 AM CDT) eGFR >90 90 - 130 mL/min/1. 73 m2 [facility] Comment: Interpretive Data Reference Interval Normal >/= [...] BLOOD ORDERABLES Final Result [facility] Department [place] [address] * (ABNORMAL) Serum lipid panel (04/02/2016 3:08 [...] Recently Relevant to Health Maintenance Insurance MEDICARE [facility] MEDICARE BLUE CROSS MEDICARE SUPPLEMENT MEDICARE [facility] [employer] MEDICARE SUPPLEMENT Care Teams Visual Education Teacher Relationship Specialty Start Date End Date Bennie Nova MD [address] [place] [address] PCP - General Cardiovascular Disease 06/02/21
--- OUTSIDE RECORDS SUMMARY | 2025-01-29 08:36 | XMS_ITS | Referral Summary ---
Author Organization [facility] at [facility] Address [address] [place] [address] Care Team Providers Care Hot Mix Operator Name Role Phone Bennie Nova MD [...] on file Legal Sex Male 12:10 AM SUPERINTENDENT CONSTRUCTION Gender Identity Not on file Sexual Orientation Not on file Last Filed Vital Signs Vital Sign Reading Time Taken Comments Blood Pressure 128/84 10/02/2024 12:46 PM SUPERINTENDENT CONSTRUCTION Pulse 88 10/02/2024 12:46 PM SUPERINTENDENT CONSTRUCTION Temperature 36.7 C (98.1 F) 08/17/2024 9:05 AM CDT Respiratory Rate 16 10/02/2024 12:46 PM SUPERINTENDENT CONSTRUCTION Oxygen Saturation 98% 10/02/2024 12:46 PM SUPERINTENDENT CONSTRUCTION Inhaled Oxygen Concentration - - Weight 113.4 kg (250 lb) 10/02/2024 12:46 PM SUPERINTENDENT CONSTRUCTION Height 177.8 cm (5' 10 ) 10/02/2024 12:46 PM SUPERINTENDENT CONSTRUCTION Body Mass Index 35.87 10/02/2024 12:46 PM SUPERINTENDENT CONSTRUCTION Plan of Treatment Not on file Medical Devices Implanted Type Area Training Developer Device Identifier Shelf Expiration Date Model / [...] Spears MD - 08/17/2024 8:17 AM CDT [facility] Patient Name: Reggie Nevarez Procedure Date: 08/17/2024 8:17 AM Date of : 1950 Admit Type: Outpatient Age: 74 Gender: Male Attending MD: Meryl Spears M.D. Room: [facility] ENDOSCOPY ROOM 05 Note [...] polypectomy, one hemostaticclip was successfully placed. Clip blending machine operator: [employer]. Therewas no bleeding at the end of [...] Resected and retrieved. Clip was placed. Clip blending machine operator: [employer]. - Diverticulosis in the left colon. Biopsied. - The distal rectum and anal verge are normal on retroflexion view. Recommendation: - Resume previous diet. - Continue present medications. - Await pathology results. Meryl Spears M.D. Meryl Spears M.D. 08/17/2024 9:11:17 AM . Number of Addenda: 0 Note Initiated On: 08/17/2024 8:17 AM Recognized by the [place] [employer] for promoting quality [...] BLOOD ORDERABLES Final Result PHILIPPE CASTORENA [facility] [place] [address] * (ABNORMAL) Serum lipid panel (04/02/2016 3:08 [...] Recently Relevant to Health Maintenance Insurance MEDICARE [facility] MEDICARE BLUE CROSS MEDICARE [place] [address] [facility] BLUE CROSS MEDICARE SUPPLEMENT Care Teams Hot Mix Operator Relationship Specialty Start Date End Date Bennie Nova MD [address] [place] [address] PCP - General Cardiovascular Disease 06/02/21
--- OUTSIDE RECORDS SUMMARY | 2025-01-29 08:36 | XMS_ITS | Continuity of Care Document ---
Author Organization [facility] Address [address] [place] [address] [place] [address] Phone Care Team Providers Care Client Business Manager Name Role Phone Hoa Gonzalez Unavailable Unavailable Procedures Procedure Date Eye Exam & Treatment Refraction Eye Exam & Treatment Eye Exam & Treatment Refraction Advance Directives Directive Yes / No Effective Date File Name No Information Encounters Encounter Description Practice Location Reason(s) For Visit Diagnoses Date Provider Providers Copied on Encounter [facility], [address] [place] [address] [address], [place], [place], [address], tel:[phone] [facility] No Information Jan- 4-201 0 Lisa Solitario [address] [facility] , [address], [place], [place], [facility], [place]. tel:[phone] [facility], [address] [place] [address] [address], [place], [place], [id number], [place] tel:[phone] [facility] No Information 9-200 9 Lisa Solitario [address] [facility] [address], [place], [place], [facility], [place]. tel:[phone] [facility], [address] [place] [address] [address], [place], [place], [id number], tel:[phone] [facility] No Information 7[address] Lisa Camara. [address] , [address], [place], [address], [place]. tel:[phone] Family History Family Member Type Diagnosis Age At Onset No Information Payers Payer name Insurance type Covered republican ID Authorheidy guerrero(s) [facility] Out Of State [id number] Social History Type Description Quantity Date Captured [...]
--- OUTSIDE RECORDS SUMMARY | 2025-01-29 08:36 | XMS_ITS | CONTINUITY OF CARE DOCUMENT ---
Author Name brant guo Address Unknown Organization [facility] Address [address] [facility] [address] [place] [address] Phone [phone] Care Team Providers Care Collection Clerk Name Role Phone Karl Wyman MD Unavailable [phone] Karl Wyman MD Unavailable NAHED WALTER MD Unavailable PROBLEMS Condition Status Date Provider Notes Vitamin D deficiency active Karl Hawthorne B12 deficiency active Karl Wyman MD FOAMISH TE NOML assisted anticoagulant therapy active Rosalie Ulloa RN Adenomatous colonic polyp active Karl barfield MD Mitral regurgitation, severe active Kvng Jenkins MD S/P Dual chamb PCM - Biotronik ( MRI Safe) active Karl Wyman MD rv lead i n septum by sk Sick sinus syndrome active Meet Naranjo MD Bradycardia, severe completed - Karl Wyman MD PVCs active Meet foy MD Pulsatile tinnitus, bilateral completed - Karl Wyman MD FAMILY HISTORY OF HEART DISEASE active Karl Wyman MD dad Screening active Karl Wyman MD IRON DEFICIENCY active Karl Wyman MD Diarrhea active Karl Wyman MD Pulmonary hypertension completed 1 - Karl Wyman MD Microalbuminuria active Karl Wyman MD ne g egfr o n x 3 rx Systolic heart failure, chronic active Karl Wyman MD lowest 35 Diabetes mellitus, type 2 active Karl barfield MD neg egfr Morbid obesity active Karl Wyman MD kaye alysa slavere Atrial fib;NML TSH active Karl Wyman MD and frequeent pvc and nsvt NANI, adult;cpap in [place] active Karl Wyman MD Hyperlipidemia;NEG CRP and lpa active Karl Wyman MD Hypertension active Karl Wyman MD mechanical aortic valve replacement active Karl Wyman MD CAD s/p CABG;carotid plaue active Karl agudelo MD BALTAZAR to LAD and diagonal s tent circ , because free radial clsoed ENCOUNTERS Date Type Provider Location Encounter Diag nosis - In-person encounter Office Visit Karl Wyman MD [facility] MicroalbuminuriaAdenomatous colonic polyp - In-person encounter Office Visit Karl Wyman MD [facility] - In-person encounter Office Visit Karl Wyman MD [facility] - In-person encounter Office Visit Kvng Jenkins MD [facility] Mitral regurgitation, severe - In-person encounter Office Visit Karl Wyman MD [facility] CAD s/p CABG;carotid plaueSystolic heart failure, chronic - In-person encounter Office Visit Karl Wyman MD [facility] CAD s/p CABG;carotid plauePulmonary hypertensionS/P Dual chamb PCM - Biotronik ( MRI Safe) - In-person encounter Office Visit Meet Naranjo MD [facility] - In-person encounter Office Visit Karl Wyman MD [facility] CAD s/p CABG;carotid plaueOSA, adult;cpap in tolDiabetes mellitus, type 2Systolic heart failure, chronicScreeningPulsatile tinnitus, bilateralBradycardia, severe - In-person encounter Office Visit Meet Naranjo MD [facility] - In-person encounter Office Visit Meet Naranjo MD [facility] - In-person encounter Office Visit Meet Naranjo MD [facility] ScreeningPVCsSick sinus syndrome - In-person encounter Office Visit Karl Wyman MD [facility] mechanical aortic valve replacementAtrial fib;NML TSHMorbid obesitySystolic heart failure, chronicDiarrheaIRON DEFICIENCYFAMILY HISTORY OF HEART DISEASE - In-person encounter Office Visit Lincoln Maldonado MD [facility] - In-person encounter Office Visit Karl Wyman MD [facility] CAD s/p CABG;carotid plauemechanical aortic valve replacementHypertensionHyperlipi demia;NEG CRP and lpaOSA, adult;cpap in tolAtrial fib;NML TSHMorbid obesityDiabetes mellitus, type 2Systolic heart failure, chronic VITAL SIGNS Date Observation Value Provider Body Mass Index (Ratio) 35.41 kg/m2 Ronda Wyman MD blood pressure, diastolic 79 mm[Hg] [facility] pressure, systolic 131 mm[Hg] Gissellemanny bailey [place] oxygen saturation, oximetry 99 % [facility] pulse rate 85 /min [facility] blood pressure, cuff size regular [facility] weight E&M 246.8 [lb_av] [facility] height E&M 70 [in_i] [facility] Body Mass Index (Ratio) 34.43 kg/m2 Ronda [...] Isa Ruiz blood pressure, cuff size regular [facility] weight E&M 242.6 [lb_av] Isa Waller height [...] Ronda Wyman MD weight E&M 244 [lb_av] [facility], cuff size regular Tr lisette Null blood pressure, diastolic 92 mm[Hg] lisette Null blood pressure, systolic 157 mm[Hg] [facility] oxygen saturation, oximetry 97 % [facility] respiratory rate E&M 18 /min [facility] pulse rate 67 /min [facility] Body Mass Index (Ratio) 34.86 kg/m2 Estiven [...] Sachineld oxygen saturation, oximetry 98 % [facility] respiratory rate E&M 12 /min [facility] pulse rate 90 /min Brenda Tomas lder weight E&M 242 [lb_av] Brenda Grmarcinfe lder height E&M 70 [in_i] Brenda Gruenenfe er Body Mass Index (Ratio) 35.15 kg/m2 Ronda yWman MD blood pressure, cuff size regular Ja [...] Ronda Wyman MD height E&M 70 [in_i] [facility] blood pressure, cuff size regular [facility] blood pressure, diastolic 77 mm[Hg] [facility] blood pressure, systolic 148 mm[Hg] [facility] pulse rate 92 /min [facility] oxygen saturation, oximetry 99 % [facility] respiratory rate E&M 15 /min [facility] iller weight E&M 244 [lb_av] [facility] ALLERGIES Allergy Name Onset Date Reaction Criticality [...] s Rosalie Ulloa RN coagulation managed by hCay Goetz RN international normalized ratio (INR) 5.0 [...] pantoprazole 40 mg tablet,delayed release (DR/EC) active [facility] alprazolam 1 mg tablet completed - Karl Wyman MD sotalol 80 mg tablet completed - JuliaAscension St. [facility]'s Sleep Centermigltx SEAT BUILDER torsemide 20 mg tablet completed one tab as needed - Karl Wyman MD aspirin 81 mg capsule completed - [facility]P hydrocodone-aceta minophen 10-300 mg tablet completed - Karl Wyman MD sildenafil 100 mg tablet completed - Karl Wyman MD albuterol sulfate 90 mcg/actuation HFA aerosol inhaler active Rose Mary Vasquez omega 3 completed - [facility] SEAT BUILDER furosemide 20 mg tablet completed - [facility]igl[facility] rosuvastatin 10 mg tablet completed - Chay Goetz RN isosorbide mononitrate 30 mg tablet extended release 24 hr completed one tab in AM - Sheryl Flkao warfarin tablet completed Mon&Fri 7.5mgT,W,Th,S,S -5mg - [...] history of marijuana use no Julia Ventimiglia SEAT BUILDER drug use no Julia Ventimig heidi SEAT BUILDER alcohol use no Julia Ventimig heidi SEAT BUILDER smoking status Never smoker Julia Ventim iglia SEAT BUILDER FUNCTIONAL STATUS Date Observation Value Provider HRA, [...] Management Plan continue current therapy Julia Giles SEAT BUILDER INSURANCE PROVIDERS Payer name Policy type / Coverage type Becky red libertarian ID [place] MEDICARE Medicare [id number] [facility] [id number] ADVANCE DIRECTIVES Name Date DISCUSSED - NO [...] EG BRAIN CT Karl Wyman MD Cardiology: e f 55, pro [...] Cardiology Karl Wyman MD Cardiology: 5 .9 Karl [...] a .pacemaker Orders: 9203 MOD 45-59 min (CPT-19160) Meet Naranjo MD Electrophysiology:wo re holter in [...] MD :24 Karl Wyman MD :5.9 Karl Wyman MD :EF43, PRO 2250 Karl Wyman MD [...] adn midl ai and mild tr Karl Wymna MD :30 Karl Wyman MD :avr good but now arreguin s mod to severe mr adn midl ai and mild tr Karl Wyman MD :pro 1900 Karl Wyman MD Cardiology Tonyhernán Davalos Cardiology: EKG show s Afib with very slow ventricular response. We will stop sotalol. Will obtain telecentry and lab work Tonyhernán Davalos Cardiology: H is updated medication list [...] Tablet (Valsartan) Metformin 1,000 Mg Tablet (Metformin) [facility] Cardiology:untreated with AHI of 8=48 and oxygen saturation dropping to 80% w ill refer to pulmonary for further management [facility] Cardiology:with EF o f 60% on [...] (Isosorbide mononitrate) Valsartan 160 Mg Tablet (Valsartan) [facility] Cardiology: T he following medications were removed from the medication list: Furosemide 20 Mg Tablet (Furosemide) Sotalol 80 Mg Tablet (Sotalol) His updated medication list for this problem includes: Sotalol 80 Mg Tablet (Sotalol) Torsemide 20 Mg Tablet (Torsemide) Valsartan 160 Mg Tablet (Valsartan) Julia Giles [facility] Cardiology:Hx of CAB G and [...] Release 24 Hr (Isosorbide mononitrate) Julia Giles [facility] Cardiology:currently in afib r ate [...] obtain his recent tele monitor from previous branch officer T he following medications were removed from the medication list: Sotalol 80 Mg Tablet (Sotalol) His updated medication list for this problem includes: Dipyridamole 75 Mg Tablet (Dipyridamole) ..... 1 tablet by mouth four times a day Sotalol 80 Mg Tablet (Sotalol) Nitroglycerin 0.4 Mg Tablet, Sublingual (Nitroglycerin) Isosorbide Mononitrate 30 Mg Tablet Extended Release 24 Hr (Isosorbide mononitrate) Julia Giles [facility] Date Name PROTHROMBIN TIME WIT [...] W/EGFR Carotid Duplex Bilat eral DLCO - 72042 FRC - 66543 FVC - 48326 CXR- PA/Lat FOLATE, SERUM VITAMIN B12 IRON [...] MD complete d FVC / MVV - 98454 Karl Wyman MD c ompleted SpO2 w/o 6min walk/titration Karl Wyman MD completed SVC - 38450 Karl Wyman MD complet ed DLCO - 90879 Karl Wyman MD comple venus Gamal Pacheco [...]
--- OUTSIDE RECORDS SUMMARY | 2025-01-29 08:36 | XMS_ITS ---
Author Organization [facility] Address [address] [facility] [address] [place] [address] Care Team Providers Care Brine Process Operator Name Role Phone Nhan Gigi Unavailable [phone] SOCIAL HISTORY Sex Assigned At : Social History Observation Description Sex Assigned At Male PROBLEMS Problem Type ICD Code Onset Dates Problem Status W/U Status Risk SNOMED Code Notes Problem Chronic kidney disease, stage 2 (mild) (N18.2) Active confirmed Chronic kidney disease stage 2 (345452548) Encounters Encounter Location Date Provider Diagnosis [place] [facility] [address] [facility] [address] [place] [address] 01/02/2025 Gigi Justin Chronic kidney disea se, [...] Name:Gigi Nhan , 02/13/2025 04:15:00 PM, [address] [facility] [address], [place], [place], [facility], Progress Notes * MANNIE CABELLODOB:1950 ( 75 yo F)Acc No.[id number]:01/02/2025 Progress Notes Patient: MANNIE CABELLO Provider: MD DENY, F.A.C.P, F.A.S.N. :1950 Age:74 Y Sex:Female Date:01/02/2025 Address:[address] [place] [address], [place] [address] Subjective: * Chief Complaints: * * Medical [...] Treatment: * Billing Information: * Visit Code: 08884 Office Visit, Est Pt., Level 4. * Procedure Codes: * Sign off status: Pending * Provider: MD DENY, F.A.C.P, F.A.S.N. Date: 01/02/2025
[2025-01-29 08:44] LABS: Estimated Glomerular Filt Rate > 60
== END 2025-01-29 08:15 | disposition home or self-care (01) ==
PROVIDERS: PCP Internal Medicine; Visit Provider Internal Medicine Medical Oncology
DX: R59.1 Generalized enlarged lymph nodes (principal); I51.7 Cardiomegaly; J90 Pleural effusion, not elsewhere classified; K80.20 Calculus of gallbladder without cholecystitis without obstruction; N20.0 Calculus of kidney
CPT/HCPCS: 36415; 71260; 74177; 80053; 85025; Q9967

== ENCOUNTER 2025-01-29 09:24 | Outpatient (CLI) | payer MEDICARE, SELFPAY ==
[2025-01-29 09:37] LABS: Basophils Percent Auto 0.3 % (0.2-1.2); Eosinophils Absolute Auto 0.1 K/mm3 (0-0.3); Eosinophils Percent Auto 0.8 % (0-4.4); Hematocrit 44.9 % (42.0-52.0); Hemoglobin 14.6 g/dL (14.0-18.0); Immature Granulocyte Absolute 0.02 K/mm3 (0.00-0.031); Immature Granulocyte Percent A 0.3 % (0-0.5); Lymphocytes Absolute Auto 1.24 K/mm3 (0.9-3.2); Lymphocytes Percent Auto 19.4 % (18.3-44.2); Mean Corpuscular HGB Conc 32.5 g/dl (32-36); Mean Corpuscular Hemoglobin 29.8 pg (26-34); Mean Corpuscular Volume 91.6 fl (80-100); Monocytes Absolute Auto 0.6 K/mm3 (0.1-0.6); Monocytes Percent Auto 9.2 % (2.6-8.5); Neutrophils Absolute Auto 4.5 K/mm3 (1.3-6.7); Platelet Count Result 147 k/mm3 (150-375); Red Cell Distribution Width 14.4 % (11.5-14.5); White Blood Count 6.4 K/mm3 (4.5-10.0)
--- OUTSIDE RECORDS SUMMARY | 2025-01-29 10:27 | XMS_ITS | Clinical Summary ---
Author Organization [facility] Address [address] [place] [address] Care Team Providers Care Call Out Operator Name Role Phone Tiana Patterson MD Primary [...] STL ABSTRACTION Provider, Abstract 11/01/2024 12:00 PM BRIQUETTE MACHINE OPERATOR Office Visit [facility] Oncology and Hematology - [address] [place] [phone] Baron Menjivar MD Lymphadenopathy (Primary Dx) [...] on file Legal Sex Male 3:06 PM BRIQUETTE MACHINE OPERATOR Gender Identity Not on file Sexual Orientation Not on file Last Filed Vital Signs Vital Sign Reading Time Taken Comments Blood Pressure 131/79 11/01/2024 11:29 AM BRIQUETTE MACHINE OPERATOR Pulse 84 11/01/2024 11:29 AM BRIQUETTE MACHINE OPERATOR Temperature 36.6 C (97.8 F) 11/01/2024 11:29 AM BRIQUETTE MACHINE OPERATOR Respiratory Rate 16 11/01/2024 11:29 AM BRIQUETTE MACHINE OPERATOR Oxygen Saturation 96% 11/01/2024 11:29 AM BRIQUETTE MACHINE OPERATOR Inhaled Oxygen Concentration - - Weight 112.5 kg (248 lb) 11/01/2024 11:29 AM BRIQUETTE MACHINE OPERATOR Height 177.8 cm (5' 10 ) 11/01/2024 11:29 AM BRIQUETTE MACHINE OPERATOR Body Mass Index 35.58 11/01/2024 11:29 AM BRIQUETTE MACHINE OPERATOR Plan of Treatment Upcoming Encounters Date Type Department Care Team (Late st Contact Info) Description 02/08/2025 11:30 AM CDT Office Visit [facility] Oncology and Hematology [facility] [address] [facility] [place] [facility] [address] [place] [address] Tommy Ruiz MD [address] [facility] [address] [place] [address] Health Maintenance Due Date Last [...] 1995 ZOSTER VACCINE (1 of 2) 01/30/2000 INFLUENZA VACCINE (#1) 2024 Traditional Medicare (ACO) A nnual Wellness Visit 01/26/2025 01/26/2024 RSV VACCINE (60+ or ) (1 - 1-dose 75+ series) 2025 COLORECTAL SCREENING 08/17/2034 08/17/2024, 08/17/20 Colorectal Cancer Screening 08/17/2034 Insurance MEDICARE PART A AND B BCBS SUPP Care Teams Call Out Operator Relationship Specialty Start Date End Date Tiana Patterson MD [address] [place] [phone] PCP - General Internal Medicine 11/02/24
--- OUTSIDE RECORDS SUMMARY | 2025-01-29 10:27 | XMS_ITS | Clinical Summary ---
Author Organization [facility] Address [address] [facility] [place] [address] Care Team Providers Care Police Matron Name Role Phone Bennie Nova MD Primary Care Provider Alison jeronimo Source Comments [facility],non-owned Affiliates and Associated Physician Practices is amultiple site organization consisting of ambulatory clinics and hospital sitesin [place], [place], [place]. This disclosure is being madepursuant to the Care Everywhere program and may not contain all information available regarding this patient. Last updated 18.[facility] Allergies No known active allergies Medications * [...] Comments Blood Pressure 182/85 10/09/2012 3:10 PM SENIOR SQL SERVER DATABASE DEVELOPER Pulse 70 10/09/2012 3:10 PM SENIOR SQL SERVER DATABASE DEVELOPER Temperature 36.7 C (98.1 F) 12/29/2010 11:35 AM SENIOR SQL SERVER DATABASE DEVELOPER Respiratory Rate 16 12/29/2010 11:35 AM SENIOR SQL SERVER DATABASE DEVELOPER Oxygen Saturation - - Inhaled Oxygen Concentration - - Weight 173.3 kg (382 lb) 10/09/2012 3:10 PM SENIOR SQL SERVER DATABASE DEVELOPER Height 177.8 cm (5' 10 ) 10/09/2012 3:10 PM SENIOR SQL SERVER DATABASE DEVELOPER Body Mass Index 54.81 10/09/2012 3:10 PM SENIOR SQL SERVER DATABASE DEVELOPER Plan of Treatment Health Maintenance Due Date [...] age to complete this topic Care Teams Police Matron Relationship Specialty Start Date End Date Bennie Nova MD PCP - General Internal Medicine 10/10/12
--- OUTSIDE RECORDS SUMMARY | 2025-01-29 10:27 | XMS_ITS | Encounter Summary ---
Author Organization [facility] Address [address] [place] [address] Care Team Providers Care Cell Reliner Name Role Phone Bennie Nova MD Primary Care Provider Alison ilfrancisco javier Encounter Details Date Type Department Care Team (Late st Contact Info) Description 04/13/2024 Lab Requisition [facility] - DermPath Lab [address] [facility] [place] [address] Lou Clark PA-C [address] [place] [address] Neoplasm of uncertain behavior of [...] AM CDT) Case Report Dermatopathology Report Case: [id number] Authorizing Provider: Lou Clark, Collected: 04/13/2024 12:00 AM HELEN Ordering Location: [facility] - Received: 04/16/2024 11:01 AM DermPath Lab [...] characteristic determined by the Dermatopathology Laboratory at [facility], directed by Dr. Luba Garcia. These tests need not be, and therefore are not, approved by the [place] Food and Drug Administration. The tests are used for clinical purposes. Billing Codes Specimen Charges Stain Charges 38904 47626 1 1 4 1:29 PM CDT DERMATOPATHOLOGY LABORATORY Embedded Images 1:29 PM CDT DERMATOPATHOLOGY LABORATORY Pathology/Cytology TISSUE SPECIMEN FROM SKIN / Unknown 04/13/2024 04/16/2024 11:01 AM CDT Miscellaneous samples (specimen) TISSUE SPECIMEN FROM SKIN / Unknown 04/13/2024 04/16/2024 11:01 AM CDT Lou Clark PA-C LAB - PATHOL OGY/CYTOLOGY ORDERABLES DERMATOPATHOLOGY LABORATORY [facility] - Department of Dermatology [facility] [address] [place] [address], [address] [phone] documented in this encounter Visit Diagnoses Diagnosis Neoplasm of uncertain behavior of skin documented in this encounter Care Teams Cell Reliner Relationship Specialty Start Date End Date Bennie Nova MD PCP - General Internal Medicine 10/10/12 documented as of this encounter
[2025-01-29 10:28] LABS: Alanine Aminotransferase 14 U/L (6-50); Albumin Level 4.2 g/dL (3.5-5.1); Alkaline Phosphatase 59 U/L (38-126); Anion Gap 9 mmol/L (4-12); Aspartate Amino Transferase 30 U/L (17-59); Bilirubin,Total 0.9 mg/dL (0.2-1.3); Blood Urea Nitrogen 18 mg/dL (9-20); Calcium 8.7 mg/dL (8.4-10.2); Carbon Dioxide 28 mmol/L (22-30); Chloride 104 mmol/L (98-107); Estimated Glomerular Filt Rate > 60; Glucose 105 mg/dL (65-110); Potassium 4.3 mmol/L (3.4-5.0); Sodium 141 mmol/L (137-145)
--- OUTSIDE RECORDS SUMMARY | 2025-01-29 10:28 | XMS_ITS | Continuity of Care Document ---
Author Organization [facility] Address [address] [place] [address] [place] [address] Phone Care Team Providers Care Senior Research Associate Name Role Phone Hoa Gonzalez Unavailable Unavailable Procedures Procedure Date Eye Exam & Treatment Refraction Eye Exam & Treatment Eye Exam & Treatment Refraction Advance Directives Directive Yes / No Effective Date File Name No Information Encounters Encounter Description Practice Location Reason(s) For Visit Diagnoses Date Provider Providers Copied on Encounter [facility], [address] [place] [address] [address], [place], [place], [address], tel:[phone] [facility] No Information Jan- 4-201 0 Lisa Solitario [address] [facility] [facility] [address], [place], [place], [facility], [place]. tel:[phone] [facility], [address] [place] [address] [address], [place], [place], [address], [place] tel:[phone] [facility] No Information 9-200 9 Lisa Solitario [address], [place], [place], [facility], [place]. tel:[phone] [facility], [address] [place] [address] [address], [place], [place], [address], tel:[phone] [facility] No Information 7200 7 Lisa Camara. [address], [place], [address], [place]. tel:[phone] Family History Family Member Type Diagnosis Age At Onset No Information Payers Payer name Insurance type Covered green party ID Authorheidy guerrero(s) [facility] Out Of State [id number] Social History Type Description Quantity Date Captured [...]
--- OUTSIDE RECORDS SUMMARY | 2025-01-29 10:28 | XMS_ITS | Encounter Summary ---
Author Organization [facility] Address [address] [place] [address] Care Team Providers Care Help Desk Supervisor Name Role Phone Bennie Nova MD Primary Care Provider Alison ilfrancisco javier Encounter Details Date Type Department Care Team (Late st Contact Info) Description 11/21/2019 Lab Requisition [facility] [address] [facility], [place] [address] Hali Fletcher DO [address] [facility] [address] [place] [address] Social History Tobacco Use Types Packs/Day Years [...] Comments DERMATOPATHOLOGY Routine 11/20/2019 12:0 0 AM DISTANCE EDUCATION COORDINATOR documented in this encounter Results * DERMATOPATHOLOGY (11/20/2019 12:00 AM DISTANCE EDUCATION COORDINATOR) Case Report Dermatopathology Report Case: [id number] Authorizing Provider: Hali Fletcher DO Collected: 11/20/2019 12:00 AM Ordering Location: [facility] Received: 11/21/2019 01:31 PM Pathologist: Warner Garcia MD Specimen: Skin, left nondenominational 0 7:23 PM [facility] DERMATOPATHOLOGY [facility]ORATORY Final Diagnosis Specimen A. 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 0 7:23 PM DISTANCE EDUCATION COORDINATOR DERMATOPATHOLOGY LABORATORY Gross Description Specimen A: Received is one formalin filled container labeled with the patient's name and designated left nondenominational. The specimen consists of a shave measuring [id number]. Jar 0. 0 7:23 PM [facility] DERMATOPATHOLOGY [facility]ORATORY Microscopic Description Specimen A. SKIN, left nondenominational: Arising in the epidermis and extending into the dermis there are irregularly shaped aggregates of keratinocytes showing evidence of premature cornification. 0 7:23 PM DISTANCE EDUCATION COORDINATOR DERMATOPATHOLOGY LABORATORY Disclaimer An external and internal positive and negative controls are appropriate for the histochemical, immunohistochemical and immunofluorescence stain(s) in this case (if any), except where stated explicitly. The performance characteristics of the stain(s) cited in this report were developed and its performance characteristic determined by the Dermatopathology Laboratory at [facility], directed by Dr. Luba Garcia. These tests need not be, and therefore are not, approved by the [place] Food and Drug Administration. The tests are used for clinical purposes. Billing Codes Specimen Charges Stain Charges 03991 1 0 7:23 PM DISTANCE EDUCATION COORDINATOR DERMATOPATHOLOGY LABORATORY Embedded Images 0 7:23 PM DISTANCE EDUCATION COORDINATOR DERMATOPATHOLOGY LABORATORY Pathology/Cytolog y TISSUE SPECIMEN FROM SKIN / Unknown 11/20/2019 11/21/2019 1:31 PM DISTANCE EDUCATION COORDINATOR Hali Fletcher DO LAB - PATHOLOGY/C YTOLOGY ORDERABLES DERMATOPATHOLOGY LABORATORY [facility] - Department of Dermatology [address] [place] [address], [address] [phone] documented in this encounter Visit Diagnoses Not on filedocumented in this encounter Care Teams Help Desk Supervisor Relationship Specialty Start Date End Date Bennie Nova MD PCP - General Internal Medicine 10/10/12 documented as of this encounter
--- OUTSIDE RECORDS SUMMARY | 2025-01-29 10:28 | XMS_ITS | Clinical Summary ---
Author Organization [facility] at the [facility] Address [address] [place] [address] Care Team Providers Care Superintendent [employer] Name Role Phone Bennie Nova MD Primary [...] on file Legal Sex Male 12:10 AM FOUNDER & CEO Gender Identity Not on file Sexual Orientation Not on file Obstetrics History Last Filed Vital Signs Vital Sign Reading Time Taken Comments Blood Pressure 128/84 10/02/2024 12:46 PM FOUNDER & CEO Pulse 88 10/02/2024 12:46 PM FOUNDER & CEO Temperature 36.7 C (98.1 F) 08/17/2024 9:05 AM CDT Respiratory Rate 16 10/02/2024 12:46 PM FOUNDER & CEO Oxygen Saturation 98% 10/02/2024 12:46 PM FOUNDER & CEO Inhaled Oxygen Concentration - - Weight 113.4 kg (250 lb) 10/02/2024 12:46 PM FOUNDER & CEO Height 177.8 cm (5' 10 ) 10/02/2024 12:46 PM FOUNDER & CEO Body Mass Index 35.87 10/02/2024 12:46 PM FOUNDER & CEO Plan of Treatment Health Maintenance Due Date [...] Screening-Colonoscopy 08/17/20342023 Medical Devices Implanted Type Area Farm Tractor Mechanic Device Identifier Shelf Expiration Date Model / [...] Spears MD - 08/17/2024 8:17 AM CDT [facility] GI ENDOSCOPY Patient Name: Reggie Nevarez Procedure Date: 08/17/2024 8:17 AM Date of : 1950 Admit Type: Outpatient Age: 74 Gender: Male Attending MD: Meryl Spears M.D. Room: [facility] ENDOSCOPY ROOM 05 Note Status: Finalized [...] polypectomy, one hemostaticclip was successfully placed. Clip cow rider: [place]. Therewas no bleeding at the end of [...] Resected and retrieved. Clip was placed. Clip cow rider: [place]. - Diverticulosis in the left colon. Biopsied. - The distal rectum and anal verge are normal on retroflexion view. Recommendation: - Resume previous diet. - Continue present medications. - Await pathology results. Meryl Spears M.D. Meryl Spears M.D. 08/17/2024 9:11:17 AM . Number of Addenda: 0 Note Initiated On: 08/17/2024 8:17 AM Recognized by the [place] [employer] for promoting quality in endoscopy Meryl Spears MD ENDOSCOPY PROCEDURES Kim l Result * eGFR (07/29/2023 10:21 AM CDT) eGFR >90 90 - 130 mL/min/1. 73 m2 [facility] Comment: Interpretive Data Reference Interval Normal [...] BLOOD ORDERABLES Final Result [facility] Department [place] [address] * (ABNORMAL) Serum lipid panel (04/02/2016 3:08 [...] Recently Relevant to Health Maintenance Insurance MEDICARE [facility] MEDICARE BLUE CROSS MEDICARE SUPPLEMENT MEDICARE [facility] BLUE CROSS MEDICARE SUPPLEMENT Care Teams Superintendent [employer] Relationship Specialty Start Date End Date Bennie Nova MD [address] [place] [address] PCP - General Cardiovascular Disease 06/02/21
--- OUTSIDE RECORDS SUMMARY | 2025-01-29 10:28 | XMS_ITS | Clinical Summary ---
Author Organization [facility] Address [address] [place], [place] [id number] Care Team Providers Care Account Underwriter Name Role Phone Unavailable Primary Care Provider [...] age to complete this topic Insurance MEDICARE [facility]
--- OUTSIDE RECORDS SUMMARY | 2025-01-29 10:28 | XMS_ITS | Referral Summary ---
Author Organization [facility] Address [address] [place] [address] Care Team Providers Care Financial Administration Officer Name Role Phone Bennie Nova MD Primary [...] on file Legal Sex Male 12:10 AM SCHOOL HEALTH ASSISTANT Gender Identity Not on file Sexual Orientation Not on file Last Filed Vital Signs Vital Sign Reading Time Taken Comments Blood Pressure 128/84 10/02/2024 12:46 PM SCHOOL HEALTH ASSISTANT Pulse 88 10/02/2024 12:46 PM SCHOOL HEALTH ASSISTANT Temperature 36.7 C (98.1 F) 08/17/2024 9:05 AM CDT Respiratory Rate 16 10/02/2024 12:46 PM SCHOOL HEALTH ASSISTANT Oxygen Saturation 98% 10/02/2024 12:46 PM SCHOOL HEALTH ASSISTANT Inhaled Oxygen Concentration - - Weight 113.4 kg (250 lb) 10/02/2024 12:46 PM SCHOOL HEALTH ASSISTANT Height 177.8 cm (5' 10 ) 10/02/2024 12:46 PM SCHOOL HEALTH ASSISTANT Body Mass Index 35.87 10/02/2024 12:46 PM SCHOOL HEALTH ASSISTANT Plan of Treatment Not on file Medical Devices Implanted Type Area Employee Wellness/Fitness Coordinator Device Identifier Shelf Expiration Date Model / [...] Spears MD - 08/17/2024 8:17 AM CDT [facility] GI ENDOSCOPY Patient Name: Reggie Nevarez Procedure Date: 08/17/2024 8:17 AM Date of : 1950 Admit Type: Outpatient Age: 74 Gender: Male Attending MD: Meryl Spears M.D. Room: [facility] ENDOSCOPY ROOM 05 Note Status: Finalized [...] polypectomy, one hemostaticclip was successfully placed. 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 Therewas no bleeding at the end of [...] Resected and retrieved. Clip was placed. 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 - Diverticulosis in the left colon. Biopsied. - The distal rectum and anal verge are normal on retroflexion view. Recommendation: - Resume previous diet. - Continue present medications. - Await pathology results. Meryl Spears M.D. Meryl Spears M.D. 08/17/2024 9:11:17 AM . Number of Addenda: 0 Note Initiated On: 08/17/2024 8:17 AM Recognized by the [employer] Gastrointestinal Endoscopy for promoting quality [...] Webb MD LAB BLOOD ORDERABLES Final Result [facility] Department [place] [address] * (ABNORMAL) Serum lipid panel (04/02/2016 3:08 [...] to Health Maintenance Insurance MEDICARE [facility] MEDICARE BLUE CROSS MEDICARE SUPPLEMENT MEDICARE [facility] BLUE CROSS MEDICARE SUPPLEMENT Care Teams Financial Administration Officer Relationship Specialty Start Date End Date Bennie Noav MD [address] [place] [address] PCP - General Cardiovascular Disease 06/02/21
--- OUTSIDE RECORDS SUMMARY | 2025-01-29 10:28 | XMS_ITS | CONTINUITY OF CARE DOCUMENT ---
Author Name brant guo Address Unknown Organization [facility] Address [address] [facility] [address] [place] [address] Phone [phone] Care Team Providers Care Sas Programmer Analyst Name Role Phone Karl Wyman MD Unavailable Karl Wyman MD Unavailable NAHED WALTER MD Unavailable [phone] PROBLEMS Condition Status Date Provider Notes Vitamin D deficiency active Karl Hylton D B12 deficiency active Karl Wyman MD FOAL [facility] anticoagulant therapy active Rosalie Ulloa RN CAD [...] - Karl Wyman MD Diarrhea active Karl yWman MD IRON DEFICIENCY active Karl Wyman MD Screening active Karl Wyman MD FAMILY HISTORY OF HEART DISEASE active Karl Wyman MD dad Pulsatile tinnitus, bilateral completed - Karl Wyman MD PVCs active Meet foy MD Sick sinus syndrome active Meet Naranjo MD S/P Dual chamb PCM - Biotronik ( MRI Safe) active Karl Wyman MD rv lead i n septum by sk Mitral regurgitation, severe active Kvng Jenkins MD Adenomatous colonic polyp active Karl barfield MD Bradycardia, severe completed - Karl Wyman MD ENCOUNTERS Date Type Provider Location Encounter Diag nosis - In-person encounter Office Visit Karl Wyman MD [place] [facility] MicroalbuminuriaAdenomatous colonic polyp - In-person encounter Office Visit Karl Wyman MD [place] [facility] - In-person encounter Office Visit Karl Wyman MD [place] [facility] - In-person encounter Office Visit Kvng Jenkins MD [facility] Mitral regurgitation, severe - In-person encounter Office Visit Karl Wyman MD [place] [facility] CAD s/p CABG;carotid plaueSystolic heart failure, chronic - In-person encounter Office Visit Karl Wyman MD [place] [facility] CAD s/p CABG;carotid plauePulmonary hypertensionS/P Dual chamb PCM - Biotronik ( MRI Safe) - In-person encounter Office Visit Meet Naranjo MD [place] [facility] - In-person encounter Office Visit Karl Wyman MD [place] [facility] CAD s/p CABG;carotid plaueOSA, adult;cpap in tolDiabetes mellitus, type 2Systolic heart failure, chronicScreeningPulsatile tinnitus, bilateralBradycardia, severe - In-person encounter Office Visit Meet Naranjo MD [place] [facility] - In-person encounter Office Visit Meet Naranjo MD [place] [facility] - In-person encounter Office Visit Meet Naranjo MD [place] [facility] ScreeningPVCsSick sinus syndrome - In-person encounter Office Visit Karl Wyman MD [place] [facility] mechanical aortic valve replacementAtrial fib;NML TSHMorbid obesitySystolic heart failure, chronicDiarrheaIRON DEFICIENCYFAMILY HISTORY OF HEART DISEASE - In-person encounter Office Visit Lincoln Maldonado MD [place] [facility] - In-person encounter Office Visit Karl Wyman MD [place] [facility] CAD s/p CABG;carotid plauemechanical aortic valve replacementHypertensionHyperlipi demia;NEG CRP and lpaOSA, adult;cpap in tolAtrial fib;NML TSHMorbid obesityDiabetes mellitus, type 2Systolic heart failure, chronic VITAL SIGNS Date Observation Value Provider Body Mass Index (Ratio) 35.41 kg/m2 Ronda Wyman MD blood pressure, diastolic 79 mm[Hg] [facility] [place] blood pressure, systolic 131 mm[Hg] Gissellemanny bailey [place] oxygen saturation, oximetry 99 % [facility] pulse rate 85 /min [facility] blood pressure, cuff size regular [facility] weight E&M 246.8 [lb_av] [facility] height E&M 70 [in_i] [facility] Body Mass Index (Ratio) 34.43 [...] Isa Ruiz blood pressure, cuff size regular [facility] weight E&M 242.6 [lb_av] Isa Waller [...] lder height E&M 70 [in_i] Brenda Gruenenfe [facility] Body Mass Index (Ratio) 34.86 kg/m2 Ronda [...] ruenenfelder pulse rate 70 /min Brenda Tomas [facility] weight E&M 243 [lb_av] Brenda Tomas [facility] height E&M 70 [in_i] Brenda Tomas [facility] Body Mass Index (Ratio) 35.01 kg/m2 Ronda Wyman MD weight E&M 244 [lb_av] [facility], cuff size regular Tr lisette Null blood pressure, diastolic 92 mm[Hg] lisette Null blood pressure, systolic 157 mm[Hg] [facility] oxygen saturation, oximetry 97 % [facility] respiratory rate E&M 18 /min [facility] pulse rate 67 /min [facility] Body Mass Index (Ratio) 34.86 kg/m2 Estiven Naranjo MD oxygen saturation, oximetry 97 % Brenda Vargas respiratory rate E&M 12 /min Brenda potter pulse rate 66 /min Brenda Marin [facility] weight E&M 243 [lb_av] Brenda Marin [facility] height E&M 70 [in_i] Brenda Tomas Body [...] Sachin[place] oxygen saturation, oximetry 98 % [facility] respiratory rate E&M 12 /min [facility] pulse rate 90 /min Brenda [...] Ja rret blood pressure, systolic 136 mm[Hg] Khrsi ret pulse rate 65 /min Evan y oxygen saturation, oximetry 98 % Evan respiratory rate E&M 14 /min Evan height E&M 70 [in_i] Evan y Body Mass Index (Ratio) 35.01 kg/m2 Ronda Wyman MD height E&M 70 [in_i] [facility] blood pressure, cuff size regular [facility] blood pressure, diastolic 77 mm[Hg] [facility] blood pressure, systolic 148 mm[Hg] [facility] pulse [facility] 92 /min [facility] oxygen saturation, oximetry 99 % [facility] respiratory rate E&M 15 /min [facility] iller weight E&M 244 [lb_av] [facility] ALLERGIES Allergy Name Onset Date Reaction [...] RN Normal prothrombin time (patient) 19.8 s Cahy Goetz RN coagulation managed by Chay Goetz [...] Normal prothrombin time (patient) 57.1 s Brenda Varags coagulation managed by Rosalie Ulloa RN prothrombin [...] s Chay Bahs RN coagulation managed by Chya Cartwright Goetz RN international normalized ratio (INR) [...] pantoprazole 40 mg tablet,delayed release (DR/EC) active [facility] alprazolam 1 mg tablet completed - Karl Wyman MD sotalol 80 mg tablet completed - [facility] FILM LIBRARY CLERK torsemide 20 mg tablet completed one tab as needed - Karl Wyman MD aspirin 81 mg capsule completed - [facility] hydrocodone-aceta minophen 10-300 mg tablet completed - Karl Wyman MD sildenafil 100 mg tablet completed - Karl Wyman MD albuterol sulfate 90 mcg/actuation HFA aerosol inhaler active Rose Mary Vasquez omega 3 completed - [facility] FILM LIBRARY CL[facility] furosemide 20 mg tablet completed - [facility] rosuvastatin 10 mg tablet completed - Chay [...] history of marijuana use no Julia Ventimiglia FILM LIBRARY CLERK drug use no Julia Ventimig heidi FILM LIBRARY CLERK alcohol use no Julia Ventimig heidi FILM LIBRARY CLERK smoking status Never smoker Julia Ventim iglia FILM LIBRARY CLERK FUNCTIONAL STATUS Date Observation Value Provider HRA, [...] (inactive) Management Plan continue current therapy Karl Wyamn MD HRA, CV Assess/Plan, Angina (inactive) Management [...] Management Plan continue current therapy Julia Giles FILM LIBRARY CLERK INSURANCE PROVIDERS Payer name Policy type / Coverage type Becky red republican ID [place] Medicare [id number] [facility] [id number] ADVANCE DIRECTIVES Name Date DISCUSSED - NO [...] Wyman MD Cardiology Karl Wyman MD Cardiology Kral Wyman MD Cardiology:steven open to lad, 55% [...] a .pacemaker Orders: 9203 MOD 45-59 min (CPT-07890) Meet Naranjo MD Electrophysiology:wo re holter in [...] true PVCs due to presence of AFIB cOhoa Becerra Electrophysiology:wo re holter in Dec which [...] Tablet (Valsartan) Metformin 1,000 Mg Tablet (Metformin) [facility] Cardiology:untreated with AHI of 8=48 and oxygen saturation dropping to 80% w ill refer to pulmonary for further management [facility] Cardiology:with EF o f 60% on last [...] (Isosorbide mononitrate) Valsartan 160 Mg Tablet (Valsartan) [facility] Cardiology: T he following medications were removed from the medication list: Furosemide 20 Mg Tablet (Furosemide) Sotalol 80 Mg Tablet (Sotalol) His updated medication list for this problem includes: Sotalol 80 Mg Tablet (Sotalol) Torsemide 20 Mg Tablet (Torsemide) Valsartan 160 Mg Tablet (Valsartan) Julia Giles [facility] Cardiology:Hx of CAB G and stents in [...] Release 24 Hr (Isosorbide mononitrate) Julia Giles [facility] Cardiology:currently in afib r ate is controlled [...] obtain his recent tele monitor from previous public relations studies director T he following medications were removed from the medication list: Sotalol 80 Mg Tablet (Sotalol) His updated medication list for this problem includes: Dipyridamole 75 Mg Tablet (Dipyridamole) ..... 1 tablet by mouth four times a day Sotalol 80 Mg Tablet (Sotalol) Nitroglycerin 0.4 Mg Tablet, Sublingual (Nitroglycerin) Isosorbide Mononitrate 30 Mg Tablet Extended Release 24 Hr (Isosorbide mononitrate) Julia Giles [facility] Date Name PROTHROMBIN TIME WIT H INR [...] W/EGFR Carotid Duplex Bilat eral DLCO - 75061 FRC - 96599 FVC - 28807 CXR- PA/Lat FOLATE, SERUM VITAMIN B12 IRON [...] MD complete d FVC / MVV - 86382 Karl Wyman MD c ompleted SpO2 w/o 6min walk/titration Karl Wyman MD completed SVC - 47697 Karl Wyman MD complet ed DLCO - 11113 Karl Wyman MD comple venus Gamal Pacheco [...]
== END 2025-01-29 09:25 | disposition home or self-care (01) ==
PROVIDERS: PCP Internal Medicine; Visit Provider Internal Medicine Hematology & Oncology
DX: R59.1 Generalized enlarged lymph nodes (principal)
CPT/HCPCS: 36415; 80053; 85025

== ENCOUNTER 2025-02-03 07:08 | Emergency (ER) | payer MEDICARE, SELFPAY ==
[2025-02-03] VITALS (17 sets, daily range): BP systolic 95–127; BP diastolic 60–93; PULSE 84; RESP 16; TEMP 36.7; O2SAT 94–100
--- NOTE | ~2025-02-03 | CT_ITS ---
CLINICAL INDICATION: Left hip pain. COMPARISON: Reference is made to a plain film evaluation of the left hip performed less than an hour earlier yielding degenerative disease without acute fracture. TECHNIQUE: Computed tomography (CT) of the pelvis was performed without intravenous contrast. The dos e-length product was 496.22 mGy-cm. FINDINGS/OBSERVATIONS: Bone mineralization is age-appropriate. No acute fracture is appreciated on cross sectional imaging. Significant degenerative disease is redemonstrated. Cystic degeneration is also noted, not detected on plain film evaluation. Bone island within the acetabulum, a nonspecific finding. Significant vascular calcifications are noted. Well-corticated osseous density is identified posterior to the left lateral sacrum. IMPRESSION: Degenerative disease, without acute fracture. Reviewed, dictated and finalized at location A.
--- NOTE | ~2025-02-03 | XR_ITS ---
HISTORY: L hip pain, spontaneous COMPARISON: Reference is made to CT examination of the chest abdomen and pelvis performed 5 days ear lier. TECHNIQUE: 2 views of the left hip along with an AP view of the pelvis FINDINGS: No acute fracture or dislocation is identified. Superior lateral sclerosis of the bilateral femoral acetabular joint spaces is present consistent wit h osteoarthritis. Degenerative disease within the visualized portion of the lower lumbar spine. Fecal stasis within the rectum. Age-appropriate mineralization. IMPRESSION: Degenerative disease without acute fracture or dislocation Reviewed, dictated and finalized at location A.
--- OUTSIDE RECORDS SUMMARY | 2025-02-03 07:10 | XMS_ITS | Clinical Summary ---
Author Organization [facility] Address [address] [place] [address] Care Team Providers Care Riveter Helper Name Role Phone Bennie Nova MD Primary Care Provider Alison jeronimo Source Comments [facility],non-owned Affiliates and Associated Physician Practices is amultiple site organization consisting of ambulatory clinics and hospital sitesin [place], [place], [place] and [place]. This disclosure is being madepursuant to the Care Everywhere program and may not contain all information available regarding this patient. Last updated 18.[facility] Allergies No known active allergies Medications * [...] Comments Blood Pressure 182/85 10/09/2012 3:10 PM DRAFTER CIVIL (CAD) Pulse 70 10/09/2012 3:10 PM DRAFTER CIVIL (CAD) Temperature 36.7 C (98.1 F) 12/29/2010 11:35 AM DRAFTER CIVIL (CAD) Respiratory Rate 16 12/29/2010 11:35 AM DRAFTER CIVIL (CAD) Oxygen Saturation - - Inhaled Oxygen Concentration - - Weight 173.3 kg (382 lb) 10/09/2012 3:10 PM DRAFTER CIVIL (CAD) Height 177.8 cm (5' 10 ) 10/09/2012 3:10 PM DRAFTER CIVIL (CAD) Body Mass Index 54.81 10/09/2012 3:10 PM DRAFTER CIVIL (CAD) Plan of Treatment Health Maintenance Due Date [...] age to complete this topic Care Teams Riveter Helper Relationship Specialty Start Date End Date Bennie Nova MD PCP - General Internal Medicine 10/10/12
--- OUTSIDE RECORDS SUMMARY | 2025-02-03 07:10 | XMS_ITS | Encounter Summary ---
Author Organization [facility] Address [address] [place] [address] Care Team Providers Care Pleat Patternmaker Name Role Phone Bennie Nova MD Primary Care Provider Alison ilfrancisco javier Encounter Details Date Type Department Care Team (Late st Contact Info) Description 04/13/2024 Lab Requisition [facility] - DermPath Lab [address] [facility] [place] [address] Lou Clark PA-C [address] [place] [address] Neoplasm of uncertain behavior of [...] AM CDT) Case Report Dermatopathology Report Case: [id number] Authorizing Provider: Lou Clark, Collected: 04/13/2024 12:00 AM HELEN Ordering Location: [facility] - Received: 04/16/2024 11:01 AM DermPath [...] characteristic determined by the Dermatopathology Laboratory at [facility], directed by Dr. Luba Garcia. These tests need not be, and therefore are not, approved by the [place] Food and Drug Administration. The tests are used for clinical purposes. Billing Codes Specimen Charges Stain Charges 36429 19810 1 1 4 1:29 PM CDT DERMATOPATHOLOGY LABORATORY Embedded Images 1:29 PM CDT DERMATOPATHOLOGY LABORATORY Pathology/Cytology TISSUE SPECIMEN FROM SKIN / Unknown 04/13/2024 04/16/2024 11:01 AM CDT Miscellaneous samples (specimen) TISSUE SPECIMEN FROM SKIN / Unknown 04/13/2024 04/16/2024 11:01 AM CDT Lou Clark PA-C LAB - PATHOL OGY/CYTOLOGY ORDERABLES DERMATOPATHOLOGY LABORATORY [facility] - Department of Dermatology [facility] [address] [place] [address], [address] [phone] documented in this encounter Visit Diagnoses Diagnosis Neoplasm of uncertain behavior of skin documented in this encounter Care Teams Pleat Patternmaker Relationship Specialty Start Date End Date Bennie Nova MD PCP - General Internal Medicine 10/10/12 documented as of this encounter
--- OUTSIDE RECORDS SUMMARY | 2025-02-03 07:10 | XMS_ITS | Patient Health Record ---
Author Organization [facility] Address [address] [place] [address] [place] [address] Care Team Providers Care Mortgage Manager Name Role Phone Gigi Justin Unavailable [phone] REASON FOR REFERRAL No Information MEDICATIONS Medication SIG (Take, Route, Frequency, Duration) Notes Start Date End Date Status Ergocalciferol 1.25 MG (00311 UT) 1 capsule Orally Once a week [...] Problem Hyperlipidemia, unspecified (E78.5) Active confirmed Hyperlipidemia (92117483) Problem Anxiety disorder, unspecified (F41.9) Active confirmed Anxiety disorde r (472857994) Problem Heart failure, unspecified (I50.9) Active confirmed Heart failure (88520655) Problem Chronic kidney disease, stage 2 (mild) (N18.2) Active confirmed Chronic kidne y disease stage 2 (892714081) Problem Renal osteodystrophy (N25.0) Active confirmed Renal osteodystrophy (70319121) Problem Chronic fatigue, unspecified (R53.82) Active confirmed Chronic fatigue syndrome (disorder) (60390747) Problem 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) Active confirmed History of malignant neoplasm of larynx (280976984) Problem Benign prostatic hyperplasia without lower urinary tract symptoms (N40.0) Active confirmed Benign pros tatic hypertrophy without outflow obstruction (943424361) Problem CAD (coronary artery disease) (I25.10) Active confirmed Coronary artery disease (46989121) Encounters Encounter Location Date Provider Diagnosis [facility] [address] [facility] [place] [address] 03/23/2024 Gigi Justin Chronic kidney disea se, stage 3a N18.31 ; Anxiety disorder, unspecified F41.9 ; Chronic fatigue, unspecified R53.82 ; Renal osteodystrophy N25.0 and Heart failure, unspecified I50.9 [facility] [address] [place] [address] 04/04/2024 Gigi Justin Chronic kidney disea se, stage 3a N18.31 ; Anxiety disorder, unspecified F41.9 ; Chronic fatigue, unspecified R53.82 ; Renal osteodystrophy N25.0 and Heart failure, unspecified I50.9 [facility] [address] [place] [address] 04/25/2024 Gigi Singh Chronic kidney disea se, stage 3a N18.31 ; Anxiety disorder, unspecified F41.9 ; Chronic fatigue, unspecified R53.82 ; Renal osteodystrophy N25.0 and Heart failure, unspecified I50.9 [facility] [address] [place] [address] [facility] [address] [place] [address] 12/12/2024 Gigi Justin Chronic kidney disea se, stage 3a N18.31 ; 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 ; Hyperlipidemia, unspecified E78.5 ; CAD (coronary artery disease) I25.10 and Benign prostatic hyperplasia without lower urinary tract symptoms N40.0 [facility] [address] [place] [address] 12/26/2024 [facility] [address] [place] [address] 01/02/2025 Gigi Justin Chronic kidney disea se, stage 2 (mild) N18.2 ; Anxiety disorder, unspecified F41.9 ; Chronic fatigue, unspecified R53.82 ; Renal osteodystrophy N25.0 ; Heart failure, unspecified I50.9 ; 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 ; Hyperlipidemia, unspecified E78.5 ; CAD (coronary artery disease) I25.10 and Benign prostatic hyperplasia without lower urinary tract symptoms N40.0 [facility] [place] [facility] [address] [place] [address] 12/19/2024 Gigi Justin [facility] [address] [facility] [address] [place] [address] 01/02/2025 [facility] [address] [facility] [address] [place] [address] 04/25/2024 Gigi Justin ASSESSMENTS Encounter Date Diagnosis [...] Name:Gigi Justin , 02/13/2025 04:15:00 PM, [address] [facility], [facility] [address], [place], [address],
--- OUTSIDE RECORDS SUMMARY | 2025-02-03 07:11 | XMS_ITS | Data Portability ---
Author Organization [place] [facility], Main Office Address [address] [place] [address] Care Team Providers Care Air Analyst Name Role Phone NAHED PATTERSON Primary Care Provider NAHED PATTERSON Referring Provider STELLA WYMAN Motion Study Analyst GIGI RUIZ Binding Cutter Synthetic Cloth Assessment Encounter Date Assessment Date Assessment LastModified [...] available Lab urinalysi s, dipstick 2024 025 SEWAREN [facility], [address] [facility] [address], [place], [address], 12/17/2024 10:49:09 lipid panel, serum [email or web address] (Lab), [address] [place], [address], 12/06/2024 09:45:12 CBC w/ auto diff 2024 025 [facility] (Lab), [address] [place], [address], 2025 13:52:13 CMP, serum or plasma 2024 025 ROSA [facility] (Lab), [address] [place], [address], 2025 13:52:13 TSH, serum or plasma [address] (Lab), [address] [place], [address], 12/06/2024 09:45:13 vitamin D, 25-hydrox y, total, serum [address] (Lab), [address] [place], [address], 12/06/2024 09:45:13 glycohemo globin, total, blood [address] (Lab), [address] [place], [address], 12/06/2024 09:45:12 microalbu min, urine [address] (Lab), [address] [place], [address], 12/06/2024 09:45:12 lipid panel, serum [address] (Lab), [address] [place], [address], 09/10/2024 10:02:41 CBC w/ auto diff [address] (Lab), [address] [place], [address], 09/10/2024 10:02:41 CMP, serum or plasma 2023 024 [facility] [address] (Lab), [address] [place], [address], 09/10/2024 10:02:41 TSH, serum or plasma [address] (Lab), [address] [place], [address], 09/10/2024 10:02:41 vitamin D, 25-hydrox y, total, serum [address] (Lab), [address] [place], [address], 09/10/2024 10:02:41 glycohemo globin, total, blood [address] (Lab), [address] [place], [address], 09/10/2024 10:02:41 microalbu min, urine [address] (Lab), [address] [place], [address], 09/10/2024 10:02:41 lipid panel, serum 2023 [facility] (Lab), [address] [place], [address], 07/02/2024 14:54:00 CBC w/ auto diff 2023 [facility] (Lab), [address] [place], [address], 07/02/2024 14:34:27 CMP, serum or plasma 2023 [facility] (Lab), [address] [place], [address], 08/31/2024 11:43:26 TSH, serum or plasma 2023 024 [facility] (Lab), [address] [place], [address], 08/31/2024 12:03:05 vitamin D, 25-hydrox y, total, serum 2023 024 [email or web address] [facility] (Lab), [address] [place], [address], 12/03/2024 12:43:14 glycohemo globin, total, blood 2023 024 [facility] (Lab), [address] [place], [address], 09/03/2024 14:39:57 microalbu min, urine 2023 024 [facility] (Lab), [address] [place], [address], 08/31/2024 11:40:26 Referral nephrolog ist referral - Please call patient to schedule an appointme nt. Thank you. 2024 025 [email or web address] Gigi Ruiz MD (Nephrology, [address] [facility], [address], [place], [address], 01/15/2025 18:05:31 pulmonolo gist referral - Please call patient to schedule an appointme nt. Thank you. 2024 025 FLETCHER DONALDSON-C, [address] [facility], [address], [place], [address], 12/10/2024 15:15:25 urologist referral - Please call patient to schedule an appointme nt. Thank you. 2024 025 Rafael Mares, [address] [facility], [facility] [address], [place], [address], 12/10/2024 15:04:30 podiatris t referral - Please call patient to schedule an appointme nt. Thank you. ( I believe this patient is already being followed by your office) 2024 025 FLETCHER Wu DPM, [address], [address], [place], [address], 12/10/2024 14:50:39 cardiolog ist referral - Please call patient to schedule an appointme nt. Thank you. 2024 025 FLETCHER Birmingham MD, [address], [address], [place], [address], 01/09/2025 15:36:36 nephrolog ist referral 2023 024 tammy Ruiz MD (Nephrology, [address], [address], [place], [address], 09/10/2024 10:02:41 pulmonolo gist referral - Please call patient to schedule. 2023 024 [email or web address] Pham Aldridge DIRECTORY CARRIER-C, [address] [facility], [address], [place], [address], 09/21/2024 13:26:19 urologist referral - Please call patient to schedule. 2023 024 ROSA Mares, [address] [facility], [facility] [address], [place], [address], 09/12/2024 16:30:27 podiatris t referral - Please call patient to schedule. 2023 024 [email or web address] Wu DPWarner, [address], [address], [place], [address], 11/15/2024 09:52:52 cardiolog ist referral 2023 024 tammy Wyman MD, [address] [facility], [address], [place], [address], 09/10/2024 10:02:41 nephrolog ist referral 2023 024 [email or web address] Gigi Ruiz MD (Nephrology, [address], [address], [place], [address], 12/03/2024 12:43:33 pulmonolo gist referral 2023 024 [email or web address] Jorge Tyson MD, [address] [facility], [place], [address], 10/25/2024 18:26:15 podiatris t referral 2023 024 [email or web address] Marcelino Wu DPM, [address], [address], [place], [address], 10/25/2024 18:24:16 cardiolog ist referral 2023 024 [email or web address] Stella Wyman MD, [address] [facility], [address], [place], [address], 10/25/2024 18:24:43 Procedures None recorded. Surgeries None recorded. Imaging None recorded. Medication Orders tamsulosi n 0.[address] [facility] #[id number], [address], [place], [address], 12/14/2024 16:12:42 tamsulosi n 0.4 mg capsule [address] [facility]acy #[id number], [address], [place], [address], 06/05/2024 15:26:30 Patient TargetsNo targets recorded. Patient Instructions Encounter Date Encounter Id Patient Instructions Last Modified By Organization Details Last Modified Time 09/12/2024 [id number] 1. The patient i s already taking tamsulosin and finasteride 2. I really do not think there is anything I can offer except limit his fluids but otherwise no other recommendations and just follow up as needed Not available 09/12/2024 16:15:42 12/14/2024 [id number] 1. BPH with obstruction 2. I will increase his tamsulosin to 2 capsules a day he will take it at 6:00 p.m. 3. He can either have his primary care refill the prescription or he can come back here in 1 year Not available 12/14/2024 16:12:13 Reason for Referral Quality Control Industrial Engineer Referral for Type 2 diabetes mellitus without complication Referring Physician: Nahed Patterson Internal Medicine, Encounter Date: 06/05/2024 Motion Study Analyst Referral for Co ronary arteriosclerosis Referring Physician: Nahed Patterson Internal Medicine, Encounter Date: 06/05/2024 Manager Erp Referral for O bstructive sleep apnea syndrome Referring Physician: Bernard Lieberman Medicine, Encounter Date: 06/05/2024 Binding Cutter Synthetic Cloth Referral for Pr oteinuria Referring Physician: Bernard Lieberman Medicine, Encounter Date: 06/05/2024 Quality Control Industrial Engineer Referral for Type 2 diabetes mellitus without complication Please call patient to schedule. Referring Physician: Bernard Lieberman, Encounter Date: 09/04/2024 Motion Study Analyst Referral for Co ronary arteriosclerosis Referring Physician: Bernard Lieberman, Encounter Date: 09/04/2024 Manager Erp Referral for O bstructive sleep apnea syndrome Please call patient to schedule. Referring Physician: Bernard Lieberman Medicine, Encounter Date: 09/04/2024 Binding Cutter Synthetic Cloth Referral for Pr oteinuria Referring Physician: Bernard Lieberman, Encounter Date: 09/04/2024 Urologist Referral for Urina ry incontinence Please call patient to schedule. Referring Physician: Bernard Lieberman, Encounter Date: 09/04/2024 Quality Control Industrial Engineer Referral for Type 2 diabetes mellitus without complication Please call patient to schedule an appointment. Thank you. ( I believe this patient is already being followed by your office) Referring Physician: Nahed Patterson Internal Medicine, Encounter Date: 12/06/2024 Motion Study Analyst Referral for Co ronary arteriosclerosis Please call patient to schedule an appointment. Thank you. Referring Physician: Nahed Patterson, Internal Medicine, Encounter Date: 12/06/2024 Manager Erp Referral for O bstructive sleep apnea syndrome Please call patient to schedule an appointment. Thank you. Referring Physician: Nahed Patterson Internal Medicine, Encounter Date: 12/06/2024 Binding Cutter Synthetic Cloth Referral for Pr oteinuria Please call patient [...] 7.4 x10'3 /uL 4.2-10 .8 Not Available [facility] (Lab) [address] [place], [address], 08/31/2024 11:18:30 08/31/20 24 08/31/2024 CBC/C OMPLE TE BLD COUNT W/DIF F red blood cells 4.90 x10'6 /uL 4.10-5 .80 Not Available [facility] (Lab) [address] [place], [address], 08/31/2024 11:18:30 08/31/20 24 08/31/2024 CBC/C OMPLE TE BLD COUNT W/DIF F hemoglobin 14.9 g/dL 13.2-1 7.0 Not Available [facility] (Lab) [address] [place], [address], 08/31/2024 11:18:30 08/31/20 24 08/31/2024 CBC/C OMPLE TE BLD COUNT W/DIF F hematocrit 45.5 % 39.3-5 0.0 Not Available [facility] (Lab) [address] [place], [address], 08/31/2024 11:18:30 08/31/2008/31/2024 CBC/C OMPLE TE BLD COUNT W/DIF F mean red cell volume 92.9 fL 80.0-9 7.0 Not Available [facility] (Lab) [address] [place], [address], 08/31/2024 11:18:30 08/31/2008/31/2024 CBC/C OMPLE TE BLD COUNT W/DIF F mean red cell hemoglobin 30.4 pg 27.0-3 3.0 Not Available [facility] (Lab) [address] [place], [address], 08/31/2024 11:18:30 08/31/2008/31/2024 CBC/C OMPLE TE BLD COUNT W/DIF F mean RBC HGB concentratio n 32.7 g/dL 31.0-3 6.0 Not Available [facility] (Lab) [address] [place], [address], 08/31/2024 11:18:30 08/31/2008/31/2024 CBC/C OMPLE TE BLD COUNT W/DIF F red cell distribution width 14.0 % 11.8-1 5.5 Not Available [facility] (Lab) [address] [place], [address], 08/31/2024 11:18:30 08/31/2008/31/2024 CBC/C OMPLE TE BLD COUNT W/DIF F platelets 151 x10'3 /uL 150-40 0 Not Available [facility] (Lab) [address] [place], [address], 08/31/2024 11:18:30 08/31/2008/31/2024 CBC/C OMPLE TE BLD COUNT W/DIF F mean platelet volume 10.0 fL 9.0-12 .4 Not Available [facility] (Lab) [address] [place], [address], 08/31/2024 11:18:30 08/31/2008/31/2024 CBC/C OMPLE TE BLD COUNT W/DIF F neutrophils 78.8 % 39.0-7 2.0 high Not Available [facility] (Lab) [address] [place], [address], 08/31/2024 11:18:30 08/31/2008/31/2024 CBC/C OMPLE TE BLD COUNT W/DIF F lymphocytes 11.8 % 16.0-4 7.0 low Not Available [facility] (Lab) [address] [place], [address], 08/31/2024 11:18:30 08/31/2008/31/2024 CBC/C OMPLE TE BLD COUNT W/DIF F monocytes 8.1 % 5.0-12 .0 Not Available [facility] (Lab) [address] [place], [address], 08/31/2024 11:18:30 08/31/2008/31/2024 CBC/C OMPLE TE BLD COUNT W/DIF F eosinophils 0.5 % 1.0-7. 0 low Not Available [facility] (Lab) [address] [place], [address], 08/31/2024 11:18:30 08/31/2008/31/2024 CBC/C OMPLE TE BLD COUNT W/DIF F basophils 0.3 % 0.0-2. 0 Not Available [facility] (Lab) [address] [place], [address], 08/31/2024 11:18:30 08/31/2008/31/2024 CBC/C OMPLE TE BLD COUNT W/DIF F immature granulocytes 0.5 % 0.00-0 .50 Not Available [facility] (Lab) [address] [place], [address], 08/31/2024 11:18:30 08/31/2008/31/2024 CBC/C OMPLE TE BLD COUNT W/DIF F neutrophils, absolute count 5.82 x10'3 /uL 1.5-8. 0 Not Available [facility] (Lab) [address] [place], [address], 08/31/2024 11:18:30 08/31/2008/31/2024 CBC/C OMPLE TE BLD COUNT W/DIF F lymphocytes, absolute count 0.87 x10'3 /uL 1.07-3 .43 low Not Available [facility] (Lab) [address] [place], [address], 08/31/2024 11:18:30 08/31/2008/31/2024 CBC/C OMPLE TE BLD COUNT W/DIF F monocytes, absolute count 0.60 x10'3 /uL 0.29-0 .99 Not Available [facility] (Lab) [address] [place], [address], 08/31/2024 11:18:30 08/31/2008/31/2024 CBC/C OMPLE TE BLD COUNT W/DIF F eosinophils, absolute count 0.04 x10'3 /uL 0.02-0 .53 Not Available [facility] (Lab) [address] [place], [address], 08/31/2024 11:18:30 08/31/20 24 08/31/2024 CBC/C OMPLE TE BLD COUNT W/DIF F basophils, absolute count 0.02 x10'3 /uL 0.01-0 .08 Not Available [facility] (Lab) [address] [place], [address], 08/31/2024 11:18:30 08/31/20 24 08/31/2024 CBC/C OMPLE TE BLD COUNT W/DIF F immature granulocytes ,absolute 0.04 x10'3 /uL 0.00-0 .05 Not Available [facility] (Lab) [address] [place], [address], 08/31/2024 11:18:30 08/31/20 24 08/31/2024 CBC/C OMPLE TE BLD COUNT W/DIF F nucleated red blood cells 0.0 % -0 Not Available [facility] (Lab) [address] [place], [address], 08/31/2024 11:18:30 08/31/20 24 08/31/2024 CBC/C OMPLE TE BLD COUNT W/DIF F NRBC# 0.00 x10'3 /uL Not Available [facility] (Lab) [address] [place], [address], 08/31/2024 11:18:30 08/31/20 24 08/31/2024 MICRO ALBUM IN RANDO M URINE microalbumin , urine 19.9 mg/L 0.0-16 .6 high Not Available [facility] (Lab) [address] [place], [address], 08/31/2024 11:40:26 08/31/20 24 08/31/2024 LIPID PANEL cholesterol 151 mg/dL 140-19 9 NIH SHANA NSUS RECOM MENDA TION FOR VICKY STERO L: ADULT CHILD LOW RISK: <200 <170 BORDE RLINE : <200- 239 ----- HIGH RISK: >240 >200 Not Available [facility] (Lab) [address] [place], [address], 08/31/2024 11:43:16 08/31/2008/31/2024 LIPID PANEL triglyceride s 168 mg/dL 0-150 high NIH SHANA NSUS REPOR T RECOM MENDA TION FOR TRIGL YCERI VIOLETTA: ADULT CHILD LOW RISK: <150 ----- BODER LINE: 150-1 99 ----- HIGH RISK: >200 ----- Not Available [facility] (Lab) [address] [place], [address], 08/31/2024 11:43:16 08/31/2008/31/2024 LIPID PANEL HDL cholesterol 45 mg/dL 40- Not Available [facility] (Lab) [address] [place], [address], 08/31/2024 11:43:16 08/31/2008/31/2024 LIPID PANEL LDL cholesterol, [...] WILL NOT BE REPOR SHANNAN. Not Available [facility] (Lab) [address] [place], [address], 08/31/2024 11:43:16 08/31/2008/31/2024 COMPR EHENS DEANNA METAB OLIC PANEL sodium 138 mmol/ L 137-14 5 Not Available [facility] (Lab) [address] [place], [address], 08/31/2024 11:43:26 08/31/2008/31/2024 COMPR EHENS DEANNA METAB OLIC PANEL potassium 5.0 mmol/ L 3.5-5. 1 Not Available [facility] (Lab) [address] [place], [address], 08/31/2024 11:43:26 08/31/2008/31/2024 COMPR EHENS DEANNA METAB OLIC PANEL chloride 104 mmol/ L 98-107 Not Available [facility] (Lab) [address] [place], [address], 08/31/2024 11:43:26 08/31/2008/31/2024 COMPR EHENS DEANNA METAB OLIC PANEL carbon dioxide 28 mmol/ L 22-30 Not Available [facility] (Lab) [address] [place], [address], 08/31/2024 11:43:26 08/31/2008/31/2024 COMPR EHENS DEANNA METAB OLIC PANEL anion gap 11.0 mmol/ L 14-22 low Not Available [facility] (Lab) [address] [place], [address], 08/31/2024 11:43:26 08/31/20 24 08/31/2024 COMPR EHENS DEANNA METAB OLIC PANEL glucose 107 mg/dL 70-99 high Not Available [facility] (Lab) [address] [place], [address], 08/31/2024 11:43:26 08/31/2008/31/2024 COMPR EHENS DEANNA METAB OLIC PANEL BUN 16 mg/dL 8-19 Not Available [facility] (Lab) [address] [place], [address], 08/31/2024 11:43:26 08/31/20 24 08/31/2024 COMPR EHENS DEANNA METAB OLIC PANEL creatinine 0.76 mg/dL 0.66-1 .25 Not Available [facility] (Lab) [address] [place], [address], 08/31/2024 11:43:26 08/31/2008/31/2024 COMPR EHENS DEANNA METAB OLIC PANEL GFR >60 Refer ence Range : [place] ge GFR Healt hy Adult : >60 [...] or ethni c subgr oups, such as Hispa nics. Outsi de the valid ated tiffanie [...] calcu lator is avail able on the [facility] websi te: https ://fozia chow.steve luna.o rg/pr ofess ional s/kdo qi/gf r_cal culat or Not Available [facility] (Lab) [address] [place], [address], 08/31/2024 11:43:26 08/31/2008/31/2024 COMPR EHENS DEANNA METAB OLIC PANEL alkaline phosphatase 64 U/L 38-126 Not Available [facility] (Lab) [address] [place], [address], 08/31/2024 11:43:26 08/31/20 24 08/31/2024 COMPR EHENS DEANNA METAB OLIC PANEL alanine aminotransfe rase 17 U/L 0-50 Not Available [facility] (Lab) [address] [place], [address], 08/31/2024 11:43:26 08/31/2008/31/2024 COMPR EHENS DEANNA METAB OLIC PANEL aspartate aminotransfe rase 23 U/L 15-46 Not Available [facility] (Lab) [address] [place], [address], 08/31/2024 11:43:26 08/31/2008/31/2024 COMPR EHENS DEANNA METAB OLIC PANEL bilirubin, total 0.80 mg/dL 0.20-1 .30 Not Available [facility] (Lab) [address] [place], [address], 08/31/2024 11:43:26 08/31/2008/31/2024 COMPR EHENS DEANNA METAB OLIC PANEL calcium 9.4 mg/dL 8.4-10 .2 Not Available [facility] (Lab) [address] [place], [address], 08/31/2024 11:43:26 08/31/2008/31/2024 COMPR EHENS DEANNA METAB OLIC PANEL total protein 6.0 g/dL 6.3-8. 2 low Not Available [facility] (Lab) [address] [place], [address], 08/31/2024 11:43:26 08/31/2008/31/2024 COMPR EHENS DEANNA METAB OLIC PANEL albumin 3.7 g/dL 3.0-4. 4 Not Available [facility] (Lab) [address] [place], [address], 08/31/2024 11:43:26 08/31/20 24 08/31/2024 COMPR EHENS DEANNA METAB OLIC PANEL globulin 2.3 g/dL 2.6-4. 2 low Not Available [facility] (Lab) [address] [place], [address], 08/31/2024 11:43:26 08/31/2008/31/2024 COMPR EHENS DEANNA METAB OLIC PANEL A/G ratio 1.6 ratio 1.0-2. 0 Not Available [facility] (Lab) [address] [place], [address], 08/31/2024 11:43:26 08/31/2008/31/2024 TSH W/REF SAAD FT4 TSH with reflex free T4 0.684 uIU/m L 0.465- 4.680 Not Available [facility] (Lab) [address] [place], [address], 08/31/2024 12:03:05 08/31/2008/31/2024 VITAM IN D 25-HY DROXY vd25oh 24.1 NG/mL 30-100 low Vitam in D Statu s: Defic ient: <20 ng/mL Insuf ficie nt: 20-29 ng/mL Suffi cient : 30-10 0 ng/mL Not Available [facility] (Lab) [address] [place], [address], 08/31/2024 12:05:58 08/31/2009/03/2024 HEMOG LOBIN A1C HA1C 5.9 % 4.0-6. 0 Diabe sal Scree elliott Crite jack: <5.7% Consi stent with absen ce of diabe sal 5.7-6 .4% Consi stent with incre ased risk for diabe sal (pred iabet es) >OR=6 .5% Consi stent with diabe sal REFER ENCE: Diabe sal Care 2016, 39(Zacarias ppl.1 ):s13 -s22 Not Available [facility] (Lab) [address] [place], [address], 09/03/2024 14:39:57 05/22/20 24 05/22/2024 cardi ac stres s test No observ ation record ed. [address] [facility] [address], [place], [address], 10/23/2024 09:06:42 09/14/20 24 09/14/2024 imagi ng/di agnos tic resul t No observ ation record ed. [address] [facility] [address], [place], [address], 10/23/2024 09:07:00 09/18/20 24 09/18/2024 CT, angio gram, chest + abdom en + pelvi s, w/ contr ast No observ ation record ed. [address] [place], [address], 10/23/2024 09:08:31 09/27/20 24 09/27/2024 XR, chest , 2 view No observ ation record ed. [address] [place], [address], 10/23/2024 09:08:46 10/24/20 24 10/24/2024 US, liver [facility] [address] [address] Patien t Name: MANNIE NEVAREZ Access ion #: [id number] Sex: M : 1949 4 Dictat ed By: Lashell bryant Francisco Attend ing Physic franklyn: ALFONZO HEBERT Orderi ng Physic franklyn: ALFONZO HEBERT Exam Date: 2023 [...] at 2023 07:51: 24 AM Page 1 [facility] ([facility] Sched[facility]) [address] [place], [address], 11/27/2024 11:50:16 01/30/2001/29/2025 imagi ng/di agnos tic resul t No observ ation record ed. [facility] [address] [place] [address] [address], [place], [address], 2025 17:01:47 Result Notes None recorded. Problems Name Problem SNOMED Code Status Onset Date Resolution Date Notes Provider Name and Address Organization Details Recorded Time Spinal stenosis of lumbar region 43795356 Active 2022 Not Available [facility] 3 12:47:20 Morbid obesity 562301567 Active 2022 Not Available [facility] 3 12:47:20 Osteoarthr itis of knee 490458833 Active Not Available [facility] 3 12:47:20 Low back pain 648874268 Active 2022 Not Available [facility] 3 12:47:20 Osteoarthr itis 644233356 Active 2021 Not Available [facility] 3 12:47:20 Arthropath y of joint of hand 349870498 Active Not Available [facility] 3 12:47:20 Osteoarthr itis of right knee joint 9812217683027 00 Active 2022 BENNIE Luis, [facility] 3 08:45:57 Coronary arterioscl erosis 11019281 Active 2022 Nahed bryant MD [address], [address], [place], [address] , [facility] 3 13:56:07 Type 2 diabetes mellitus without complicati on 911799976 Active 2022 Nahed bryant MD [address], [address], [place], [address] , [facility] 3 13:56:16 Hyperlipid emia 72489431 Active 2022 Nahed bryant MD [address], [address], [place], [address] , [facility] 3 13:56:56 Vitamin D deficiency 03682353 Active 2022 Nahed bryant MD [address], [address], [place], [address] , [facility] 3 14:07:39 Urinary incontinen ce 023462084 Active 2022 Nahed bryant MD [address], [address], [place], [address] , [facility] 3 14:23:53 Gastroesop hageal reflux disease without esophagiti s 003985947 Active 2022 Nahed bryant MD [address], [address], [place], [address] , [facility] 3 14:24:14 Chronic pain 89169667 Active 2022 Nahed bryant MD [address], [address], [place], [address] , [place] [facility] 3 14:24:54 Atrial fibrillati on 33574460 Active 2022 Nahed bryant MD [address], [address], [place], [address] , [place] [facility] 3 14:25:54 Obstructiv e sleep apnea syndrome 20452406 Active 2022 Nahed bryant MD [address], [address], [place], [address] , [place] [facility] 3 14:26:12 Bilateral osteoarthr itis of knees 1355661961405 07 Active 2022 BENNIE Luis null, [place] [facility] 3 08:33:04 Osteoarthr itis of left knee joint 6466905235543 09 Active 2022 Amaya Beth CMA null, [place] [facility] 3 08:49:55 Chronic diarrhea 940270290 Active 2023 Evelina Best MA null, [place] [facility] 4 11:40:20 Proteinuri a 66928603 Active 2023 Nahed bryant MD [address], [address], [place], [address] , [place] [facility] 4 17:27:16 Pain of left knee joint 4810597236244 07 Active 2023 Nahed bryant MD [address], [address], [place], [address] , [place] [facility] 4 09:36:49 Diarrhea 77136335 Active 2023 Nahed bryant MD [address], [address], [place], [address] , [place] [facility] 4 10:17:42 Chronic pain syndrome 283469731 Active 2023 Evelina Best MA null, [facility] 4 14:16:46 Neuropathy 074119399 Active 2023 Nahed bryant MD [address], [address], [place], [address] , [facility] 4 15:37:24 Pruritic rash 55837579 Active 2023 Nahed bryant MD [address], [place], [address] , [facility] 4 09:27:08 Lesion of skin of face 870555864863 Active 2023 Nahed bryant MD [address], [address], [place], [address] , [facility] 4 09:29:33 Erectile dysfunctio n [id number] Active 2023 Nahed bryant MD [address], [place], [address] , [facility] 4 12:03:37 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 [id number] Active 2023 Rafael Mares MD [address], [place], [address] , [facility] [facility] 4 16:15:23 Paratrache al lymphadeno tierra [id number] Active 2023 Mildred Fam CMA null, [facility] 4 09:52:03 Non-alcoho lic fatty liver 194488235 Active 2023 Mildred Fam CMA null, [facility] 4 09:56:45 Hepatomega ly 73915003 Active 2023 iMldred Fam CMA null, [facility] 16:09:09 Notes:Medical History: Anxie ty Rhinitis with postnasal drip Obesity with very sevre OSAHS, AHI = 49, 01/22/16, off autoCPAP Hypertension Hyperlipidemia T2DM with neuropathy CAD s/p [place] ZACK Urge urinary incontinence BPH RLS Gout Knee/Hand OA on hydrocodone Procedure History: T&A 195 CABG 1993 AVR 2004 Gastric sleeve surgery 2016 Problem Notes None recorded. Procedures Surgical History Date Name Laterality Status Provider Name and Address Organization Details Recorded Time 03/16/20 Pacemaker completed Valarie Reed Jose [employer] [facility] 04/26/2024 09:09:47 01/26/20 Medicare Wellness CPT Code, subsequent completed Eusebia Taylor MA [employer] [facility] 01/26/2024 10:46:49 11/07/19 00 bariatric operative procedure completed Bibiana Manzano [employer] [facility] 09/12/2024 14:14:45 open heart surgery completed Valarie Reed Jose [employer] [facility] 10/20/2023 14:17:29 Knee Replacement completed Valarie Reed Jose [employer] [facility] 10/20/2023 14:06:52 Knee completed Valarie Reed Jose [employer] [facility] 10/20/2023 14:07:29 Tonsillectomy completed Valarie Reed [facility] [employer] [facility] 10/20/2023 14:07:35 Imaging Results Imaging Date Name Status LastModified by [facility] [place] Details LastModified Time 05/22/2024 cardiac stress test completed [email or web address] [facility] [address], [place], [address], 10/23/2024 09:06:42 09/14/2024 imaging/diagn ostic result completed [address] [facility] [address], [place], [address], 10/23/2024 09:07:00 09/18/2024 CT, angiogram, chest + abdomen + pelvis, w/ contrast completed [id number] [place], [address], 10/23/2024 09:08:31 09/27/2024 XR, chest, 2 view completed [email or web address] [facility] [address] [place], [address], 10/23/2024 09:08:46 10/24/2024 US, liver active [email or web address] [facility] [address] [place], [address], 11/27/2024 11:50:16 2025 imaging/diagn ostic result active [facility] [address], [place], [address], 2025 17:01:47 Procedure Notes None recorded. Medical Equipment None [...] MOUTH EVERY EVENING WITH 5 MG TABLET TUE,, AND TUE ONLY TOTAL = 7.5MG 09/12 completed Not [...] suspension for injection in office 01/25 completed [facility]: 0003- 0494- 20 Not Available Not [...] TABLET BY MOUTH EVERY EVENING TAKE ON TUE-TUE- RI ONLY 04/16 completed Not Available Not [...] Not Available Not Available No t Available cholestyram ine (with sugar) 4 gram powder for susp in a packet active Not Available Not Available Not Available rosuvastati n 10 mg tablet TAKE [...] administe red by the provider 11/10 completed [facility]: 0409- 4276- 17 Not Available Not [...] , administe red by provider 12/15 completed [facility] 16393 -064- [phone] Not Available Not Available Not [...] INJECT 0.25MG UNDER THE SKIN ONCE WEEKLY [id number] THEN INCREASE TO 0.5MG ONCE WEEKLY [id number] 10/20 completed Not Available Not Available Not [...] Updated DateTime 4 175.26 cm 34.9 kg/m2 196922. 8 g 97.4 [degF] 78 /min 110 mm[Hg] 62 mm[Hg] Valarie Brianna BENNIE [place] [employer] [facility] [employer] [facility] 4 14:56:36 Date Recorded Body height Body temperature Heart rate Systolic blood pressure Diastolic blood pressure Provider Name and Address Organization Details Last Updated DateTime 09/04/2024 175.26 cm 97.2 [degF] 78 /min 128 mm[Hg] 70 mm[Hg] Valarie Reed Jose [place] [employer] [facility] [employer] [facility] 4 11:56:36 Date Recorded Body height Body mass index (BMI) Body weight Body temperature Oxygen saturation Oxygen saturation in Arterial blood by Pulse oximetry Heart rate Systolic blood pressure Diastolic blood pressure Provider Name and Address Organization Details Last Updated DateTime 4 172.72 cm 37.6 kg/m2 578960. 32 g 97.3 [degF] 96 % 96 % 85 /min 132 mm[Hg] 73 mm[Hg] Bibiana Manzano [place] [employer] [facility] [employer] [facility] 4 14:13:00 Date Recorded Body height Body mass index (BMI) Body weight Body temperature Heart rate Oxygen saturation Oxygen saturation in Arterial blood by Pulse oximetry Pain severity - 0-10 verbal numeric rating [Score] - Reported Systolic blood pressure Diastolic blood pressure Provider Name and Address Organization Details Last Updated DateTime 5 172.72 cm 36.6 kg/m2 054483. 76 g 97.4 [degF] 89 /min 98 % 98 % 5 120 mm[Hg] 60 mm[Hg] Diane Clarke MA [facility] [employer] [facility] 5 09:06:59 Date Recorded Body height Body temperature Heart rate Oxygen saturation Oxygen saturation in Arterial blood by Pulse oximetry Systolic blood pressure Diastolic blood pressure Provider Name and Address Organization Details Last Updated DateTime 5 172.72 cm 97.2 [degF] 85 /min 97 % 97 % 116 mm[Hg] 93 mm[Hg] Bibiana Manzano [place] - [facility] 5 15:36:18 Social History Question Answer Notes LastModified by Organizat ion Details LastModified Time Tobacco Smoking Status Never Smoker Not Available [employer] 01/05/2023 12:45:57 Do You Have An Advance Directive? No Information not available 10/20/2023 What Is Your Level Of Alcohol Consumption? None [id number] Information not available 01/05/2023 Are You Blind [...] Type Of Diet Are You Following? REGULAR [id number].[id number] Information not available 01/05/2023 What Is The Highest Grade Or Level Of School You Have Completed Or The Highest Degree You Have Received? [id number] Information not available 10/20/2023 Do You Have An Electrostatic Air Filter? No MIGRATION.43033 74683 Information not available 01/05/2023 Have There Been Any Changes To Your Family Or Social Situation? No Information not available 04/16/2024 What Is The Fluoride Status Of Your Home? Unknown Information not available 10/20/2023 Are There Any Guns Present In Your Home? Yes [id number].36556 [id number] Information not available 01/05/2023 Do You Have A Humidifier? Yes MIGRATION.78711 [id number] Information not available 01/05/2023 Do You Use Insect Repellent Routinely? No Information not available 12/06/2024 Where Do You Live? [place] MIGRATION.84709 93235 Information not available 01/05/2023 Do You Have A Medical Power Of Desk Pens Assembler? Yes Information not available 10/20/2023 Do You Have Moisture Problems In Your Home? No MIGRATION.15436 04030 Information not available 01/05/2023 What Was The Date Of Your Most Recent Tobacco Screening? 12/14/2024 [email or web address] Information not available 12/14/2024 Do You Have Any Pets? Yes MIGRATION.03871 12810 Information not available 01/05/2023 What Is Your Relationship Status? Information not available 10/20/2023 Do You Use Your Seat Belt Or Car Seat Routinely? Yes Information not available 10/20/2023 Do You Have Smoke And Carbon Monoxide Detectors In Your Home? Yes MIGRATION.81572 20278 Information not available 01/05/2023 Are You Passively Exposed To Smoke? No MIGRATION.42047 63876 Information not available 01/05/2023 Are There Any Smokers In Your House? No Information not available 10/20/2023 Do You Feel Stressed (tense, Restless, Nervous, Or Anxious, Or Unable To Sleep At Night)? [id number] Information not available 10/20/2023 Do You Use Any Illicit Or Recreational Drugs? No Information not available 10/20/2023 Do You Use Sunscreen Routinely? No MIGRATION.91495 43779 Information not available 01/05/2023 Has Tobacco Cessation Counseling Been Provided? No N/a Information not available 10/20/2023 Have You Recently Traveled Abroad? No MIGRATION.41398 51020 Information not available 01/05/2023 Do You Have Any Dietary Restrictions? No MIGRATION.94672 17813 Information not available 01/05/2023 Do You Or [...] Organization Details LastModified Time Father Heart disease [id number] Not available 01/05/2023 12:45:59 Father Hypertensive disorder [id number] Not available 01/05/2023 12:45:59 Father Diabetes mellitus [id number] Not available 01/05/2023 12:45:59 Medical History Condition Response BLINDNESS N KIDNEY STONES N MRSA N CARPAL TUNNEL SYNDROME N LUNG DISEASE/DISORDER N HISTORY OF DRUG ABUSE N RADIATION / CHEMOTHERAPY N COPD N SPORTS INJURY N ANKLE PAIN N BLOOD DISEASES N SCHIZOPHRENIA N SHINGLES N SHOULDER PAIN N BOWEL PROBLEMS N DEPRESSION (INCLUDING POST ) N STROKE/TIA N ULCERS N KNEE PAIN N BENIGN PROSTATIC HYPERPLASIA N OBESITY N [...] DISEASE N HEART ARRHYTHMIA N INSOMNIA N HIGH CHOLESTEROL / HYPERLIPIDEMIA N RHEUMATOID ARTHRITIS N EDEMA N CHRONIC PAIN SYNDROME N CAROTID BLOCKAGE N BACK / NECK PROBLEMS N BURSITIS N HERNIATED DISC N DIALYSIS N FIBROMYALGIA N OSTEOPOROSIS N ARTHRITIS Y NO SIGNIFICANT PAST MEDICAL HISTORY N PERIPHERAL NEUROPATHY N DIABETES, TYPE Y HEARTBURN / REFLUX N HEPATITIS / LIVER DISEASE N GOUT N ALZHEIMER'S DISEASE N SLEEP DISORDER N HERPES N HEADACHES/MIGRAINES N SEIZURES/EPILEPSY N VASCULAR DISEASE N Blood Disorder N HIP PAIN N DIZZINESS N HEAD TRAUMA OR INJURY N HEART DISEASE/HEART PROBLEMS Y MULTIPLE SCLEROSIS N CANCER: SPECIFY Y CARDIAC ARRHYTHMIA N ANESTHESIA COMPLICATIONS N ATRIAL FIBRILLATION Y AUTOIMMUNE DISEASE N Past Encounters Encounter ID Performer Location Encounter Start Date Encounter Closed Date Diagnosis/Indication Diagnosis SNOMED-CT Code Diagnosis ICD10 Code Diagnosis Note [id number] [facility] [place] [address] [place] [address] 02/18/2021 00:00:00 02/18/2021 11:32:06 [id number] [facility] [place] [address] [facility] [address] [place] [address] 06/19/2021 00:00:00 06/19/2021 14:55:34 [id number] [facility] [address] [address] 11/17/2021 00:00:00 11/17/2021 15:32:34 [id number] [facility] [address] [address] 01/12/2022 00:00:00 01/12/2022 10:01:46 [id number] [facility] [place] [address] [facility] [address] [place] [address] 2022 00:00:00 2022 14:19:26 [id number] [facility] [place] [address] [place] [address] 05/26/2022 00:00:00 05/26/2022 15:15:44 [id number] [facility] [address] [address] 08/10/2022 00:00:00 08/10/2022 10:20:52 [id number] [facility] [place] [address] [place] [address] 09/08/2022 00:00:00 09/08/2022 09:38:15 [id number] [facility] [place] [address] [place] [address] 11/25/2022 00:00:00 11/25/2022 09:19:23 [id number] [facility] [place] [address] [place] [address] 12/17/2022 00:00:00 12/17/2022 10:08:24 [id number] [facility] [place] [address] [place] [address] 12/23/2022 00:00:00 12/23/2022 09:20:24 [id number] [facility] [place] [address] [place] [address] 12/30/2022 00:00:00 12/30/2022 09:33:05 [id number] OSMAR Suarez [facility] [place] [address] [place] [address] 03/25/2023 08:38:13 03/25/2023 09:26:01 Osteoarthritis of right knee joint 3320876264 45978 M17.11 [id number] OSMAR Suarez [facility] [place] [address] [place] [address] 06/24/2023 08:44:09 06/24/2023 09:15:28 Osteoarthritis of right knee joint 9654268566 20012 M17.11 [id number] Nahed bryant MD [facility] [address] [facility], [address] [place] [address] 10/20/2023 13:47:19 10/20/2023 15:03:58 Screening - NAD 210477292 Z13.9 C-scope: Get yearly flu shotGet TdapGet Shingrix vaccineGet PCV #20Get COVID 19 vaccineGet RSV vaccine RTC in 3 months, do labs ER if worse, he did verbalize his understand ing of the above Coronary arteriosclerosis 26184030 I25.10 On ASAOn dipyridamo le 75mg qidOn isosorbide ER 30mg dailyOn NTGOn sotalol 80mg bidOn torsemide 20mg dailyOn valsartan 160mg bidOn warfarin Sees Dr Wyman, INR to be done by [facility] 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 708722279 E11.9 On jardiance 10mg dailyOn metformin 1000mg dailyOn Ozempic 2mg weekly Get labs Hyperlipidemia 19854748 E78.5 Screening for malignant neoplasm of prostate 975323230 Z12.5 Vitamin D deficiency 347 63976 E55.9 Urinary incontinence 165 569397 R32 On finasterid e 5mg daily Gastroesop hageal reflux disease without esophagitis 817577914 K21.9 On pantoprazo le 40mg dailyGet EGD done Chronic pain 39671064 G8 9.29 Advised not to take any NSAIDs!Nee ds to see pain management , unable to provide any opiates or controlled substances Atrial fibrillation 4943 [address] I48[address] Wyman Obstructiv e sleep apnea syndrome 09791421 G47.33 Screening for malignant neoplasm of colon 191649005 Z12.11 [id number] Jorge Richard MD [facility] [place] [address] [place] [address] 10/26/2023 08:26:07 10/26/2023 09:13:32 Osteoarthritis of right knee joint 4128157496 76077 M17.11 [id number] Nahed bryant MD [facility] [address] [facility], [address] [place] [address] 01/26/2024 08:52:47 01/26/2024 10:22:16 Screening - NAD 873190828 Z13.9 C-scope: Get this done Get yearly flu shotGet TdapGet Shingrix vaccineGet PCV #20Get COVID 19 vaccineGet RSV vaccine RTC in 3 months, do labs ER if worse, he did verbalize his understand ing of the above Coronary arteriosclerosis 81324194 I25.10 ECHO 01/05/2024 : In a fib On ASAOn dipyridamo le 75mg qidOn isosorbide ER 30mg dailyOn NTGOn sotalol 80mg bidOn torsemide 20mg dailyOn valsartan 160mg bidOn warfarin Sees Dr Wyman, INR to be done by [facility] 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 913062290 E11.9 On jardiance 10mg dailyNot on metformin 1000mg dailyNot on Ozempic 2mg weekly, stopped by Dr Wyman 01/12/2024 , d/t diarrhea Get labs Hyperlipidemia 96319366 E78.5 On atorvastat in 40mg dailyGet labs Vitamin D deficiency 347 39502 E55.9 Urinary incontinence 165 979164 R32 On finasterid e 5mg daily Gastroesop hageal reflux disease without esophagitis 345596314 K21.9 On pantoprazo le 40mg dailyGet EGD done Chronic pain 51586819 G8 9.29 Advised not to take any NSAIDs!Nee ds to see pain management , unable to provide any opiates or controlled substances OV 01/26/2024 :[facility] pain management 11/17/2023 His hydrocodon e was not prescribed , and this did coincide with his diarrhea, may be withdrawal ? Atrial fibrillation 4943 [address]004 I48.[address] Wyman Obstructiv e sleep apnea syndrome 07704271 G47.33 Dr Tyson 08/10/2022 Screening for malignant neoplasm of colon 056863467 Z12.11 Proteinuria 37595263 R80 .9 On [facility]rology Pain of le ft knee joint 9299548591 05481 M25.562 José Miguel PRASAD 01/25/2024 , s/p kenalog Diarrhea 99996649 R19.7 Has stopped the metformin, ozempicHis opiates were not renewed by pain management Also stop the iron tabsMay need to be on cholestyra mine or take lomotil as neededIf not better then see GI Adult heal th examination 900968464 Z00.00 Screening for disorder 834775908 Z13.9 [id number] OSMAR Suarez [facility] [place] [address] [place] [address] 01/25/2024 08:59:32 01/25/2024 11:45:22 Osteoarthritis of left knee joint 6050773641 85107 M17.12 [id number] Nahed bryant MD [facility] [address] [facility] [place] [address] 04/16/2024 08:54:53 04/16/2024 09:30:32 Screening - NAD 423926238 Z13.9 C-scope: Get this done Get yearly flu shotGet TdapGet Shingrix vaccineGet PCV #20Get COVID 19 vaccineGet RSV vaccine RTC in 2 months, do labs ER if worse, he did verbalize his understand ing of the above Coronary arteriosclerosis 28420767 I25.10 ECHO 01/05/2024 : In a fib On ASAOn dipyridamo le 75mg qidOn isosorbide ER 30mg dailyOn NTGOn sotalol 80mg bidOn torsemide 20mg dailyOn valsartan 160mg bidOn warfarin Sees Dr Wyman, INR to be done by [facility] 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 541292715 E11.9 On jardiance 10mg dailyNot on metformin 1000mg dailyNot on Ozempic 2mg weekly, stopped by Dr Wyman 01/12/2024 , d/t diarrhea Get labs Hyperlipidemia 62763818 E78.5 On atorvastat in 40mg dailyGet labs Vitamin D deficiency 347 45380 E55.9 Urinary incontinence 165 235785 R32 On finasterid e 5mg daily Gastroesop hageal reflux disease without esophagitis 124314511 K21.9 On pantoprazo le 40mg dailyGet EGD done Chronic pain 32888606 G8 9.29 Advised not to take any [...] Dr Wyman Obstructiv e sleep apnea syndrome 50763562 G47.33 Dr Tyson 08/10/2022 Screening for malignant neoplasm of colon 564016266 Z12.11 Proteinuria 41580292 R80 .9 On kerendiaNe eds to see nephrology Pain of le ft knee joint 3485909553 87114 M25.562 José Miguel PRASAD 01/25/2024 , s/p kenalog Diarrhea 56156480 R19.7 Has stopped the metformin, ozempicHis opiates were not renewed by pain management Also stop the iron tabsMay need to be on cholestyra mine or take lomotil as neededIf not better then see GI OV 04/16/2024 :On cholestyra minaShould see GI to determine the cause of the diarrhea Neuropathy 313519366 G62 .9 Sees his manager product support Is on qutenza (capsacin) Pruritic rash 69473360 L 28.2 Lesion of skin of face 5049908213 06 L98.9 Sees his dermatolog ist in [facility] hyperemic lesion noted on the L scalp and R mid neck [id number] Nahed bryant MD [facility] [address] [facility], [facility] [address] [place] [address] 04/26/2024 08:23:58 04/26/2024 09:38:30 Screening - NAD 536947646 Z13.9 C-scope: Get this done Get yearly flu shotGet TdapGet Shingrix vaccineGet PCV #20Get COVID 19 vaccineGet RSV vaccine RTC in 2 months, do labs ER if worse, he did verbalize his understand ing of the above Coronary arteriosclerosis 65441246 I25.10 ECHO 01/05/2024 : In a fibUS carotid 02/02/2024 On ASAOn coregOn dipyridamo le 75mg qidOn isosorbide ER 30mg dailyOn NTGNot on sotalol 80mg bidOn torsemide 20mg dailyNot on valsartan 160mg bid, d/c 04/12/2024 On entresto 97-103mg bid Dr Wyman 04/12/[address] Wyman, INR to be done by [facility] 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 210367659 E11.9 On jardiance 10mg dailyNot on metformin 1000mg dailyNot on Ozempic 2mg weekly, stopped by Dr Wyman 01/12/2024 , d/t diarrhea Get labs Hyperlipidemia 65662268 E78.5 On atorvastat in 40mg dailyGet labs Vitamin D deficiency 347 28064 E55.9 Urinary incontinence 165 321438 R32 On finasterid e 5mg daily Gastroesop hageal reflux disease without esophagitis 080566458 K21.9 On pantoprazo le 40mg dailyGet EGD done, has seen Dr Spears Chronic pain 39792228 G8 9.29 Advised not to take any [...] Dr Wyman Obstructiv e sleep apnea syndrome 17436317 G47.33 Dr Tyson 08/10/2022 Proteinuria 37432563 R80 .[address]han 03/27/2024 Pain of le ft knee joint 1217711266 36574 M25.562 José Miguel PRAASD 01/25/2024 , s/p kenalog Diarrhea 52585858 R19.7 Has stopped the metformin, ozempicHis opiates were not renewed by pain management Also stop the iron tabsMay need to be on cholestyra mine or take lomotil as neededIf not better then see GI OV 04/16/2024 :On cholestyra minaShould see GI to determine the cause of the diarrhea OV 04/26/2024 :Dr Spears 04/11/2024 , to get EGD and C-scope Neuropathy 797640266 G62 .9 Sees his manager product support Is on qutenza (capsacin) Pruritic rash 11299264 L 28.2 Has noted a rash underneath the abdominal fold, none today, but has used clot-betam ethasone in the past with good reliefRene w the clotrimazo le-betamet hasone cream Lesion of skin of face 9069175728 06 L98.9 Sees his dermatolog ist in [place] hyperemic lesion noted on the L scalp and R mid neck [id number] Nahed bryant MD [facility] [address] [facility] [address] [place] [address] 06/05/2024 14:41:48 06/05/2024 15:28:55 Screening - NAD 031386594 Z13.9 C-scope: Get this done Get yearly flu shotGet TdapGet Shingrix vaccineGet PCV #20Get COVID 19 vaccineGet RSV vaccine RTC in 3 months, do labs ER if worse, he did verbalize his understand ing of the above Coronary arteriosclerosis 56913283 I25.10 ECHO 01/05/2024 : In a fibUS carotid 02/02/2024 On ASAOn coreg 3.125mg bidOn dipyridamo le 75mg qidOn isosorbide ER 30mg dailyOn NTGNot on sotalol 80mg bidOn torsemide 20mg dailyNot on valsartan 160mg bid, d/c 04/12/2024 On entresto 97-103mg bid Dr Wyman 04/12/[address] Wyman, INR to be done by [facility] is now to get another procedure done by Dr Wyman as per his history 06/05/2024 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 642720275 E11.9 On jardiance 10mg dailyNot on metformin 1000mg dailyBack on Ozempic 2mg weekly as he feels that his diarrhea has improved, advised to stop if getting any procedure 06/05/2024 Get labs Hyperlipidemia 17939400 E78.5 On atorvastat in 40mg dailyGet labs Vitamin D deficiency 347 42232 E55.9 Urinary incontinence 165 195674 R32 On finasterid e 5mg dailyOn flomax renewed 06/05/2024 Gastroesop hageal reflux disease without esophagitis 274287606 K21.9 On pantoprazo le 40mg dailyGet EGD done, has seen Dr Spears Chronic pain 99087235 G8 9.29 Advised not to take any [...] Dr Wyman Obstructiv e sleep apnea syndrome 74731012 G47.33 Dr Tyson 08/10/2022 Proteinuria 23257801 R80 .9 Not on kerendiaDr Nhan 03/27/2024 Pain of le ft knee joint 9777681351 32471 M25.562 José Miguel PRASAD 01/25/2024 , s/p kenalog Diarrhea 14475888 R19.7 Has stopped the metformin, ozempicHis opiates [...] 06/05/2024 : Get EGD and C-scope Neuropathy 225473497 G62 .9 Sees his manager product support Is on qutenza (capsacin) Pruritic rash 63372571 L 28.2 Has noted a rash underneath the abdominal fold, none today, but has used clot-betam ethasone in the past with good reliefRene w the clotrimazo le-betamet hasone cream as needed Lesion of skin of face 4783645466 06 L98.9 Sees his dermatolog ist in [facility] hyperemic lesion noted on the L scalp and R mid neck [id number] Nahed bryant MD [facility] [address] [facility] [address] [place] [address] 09/04/2024 11:32:25 09/04/2024 12:23:42 Screening - NAD 681642446 Z13.9 C-scope: Get this done Get yearly flu shotGet TdapGet Shingrix vaccineGet PCV #20Get COVID 19 vaccineGet RSV vaccine RTC in 3 months, do labs ER if worse, he did verbalize his understand ing of the above Coronary arteriosclerosis 47187086 I25.10 ECHO 01/05/2024 : In a fibUS [...] 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 646447483 E11.9 On jardiance 10mg dailyNot on metformin 1000mg dailyBack on Ozempic 2mg weekly as he feels that his diarrhea has improved, advised to stop if getting any procedure 06/05/2024 Get labs Hyperlipidemia 33641963 E78.5 On atorvastat in 40mg dailyGet labs Vitamin D deficiency 347 82720 E55.9 Urinary incontinence 165 903618 R32 On finasterid e 5mg dailyOn flomax renewed 06/05/[address] Mares 09/04/2024 Gastroesop hageal reflux disease without esophagitis 934343149 K21.9 On pantoprazo le 40mg dailyGet EGD done, has seen Dr Spears Chronic pain 17768809 G8 9.29 Advised not to take any [...] Dr Wyman Obstructiv e sleep apnea syndrome 44522985 G47.33 Dr Tyson 08/10/2022 Proteinuria 84097137 R80 .9 On kerendiaLo w protein, more protein in diet and see nephrology Dr Ruiz 03/27/2024 Pain of le ft knee joint [id number] 27497 M25.562 José Miguel Reta PA 01/25/2024 , s/p kenalog Diarrhea 92279787 R19.7 Has stopped the metformin, ozempicHis opiates [...] : To get EGD and C-scope Neuropathy 465157096 G62 .9 Sees his manager product support Is on qutenza (capsacin) Pruritic rash 05125987 L 28.2 Has noted a rash underneath the abdominal fold, none today, but has used clot-betam ethasone in the past with good reliefRene w the clotrimazo le-betamet hasone cream as needed Lesion of skin of face 2249610314 06 L98.9 Sees his dermatolog ist in [facility] hyperemic lesion noted on the L scalp and R mid neck Erectile dysfunction 860 250969 F52.21 On sildenafil Does well [id number] Rafael Mares MD [facility] [place] [address] [facility] [address] [place] [address] 09/12/2024 13:53:44 09/12/2024 15:13:23 Urinary incontinence 451019562 R32 Benign pro static hyperplasia with outflow obstruction 597064967 N40.1 [id number] Nahed bryant MD [facility] Internal [facility] [address] [place] [address] 12/06/2024 09:01:34 12/06/2024 09:45:25 Screening - NAD 653535568 Z13.9 C-scope: As per Dr Spears, EGD/C-scop e: 08/17/2024 Get yearly flu shotGet TdapGet Shingrix vaccineGet PCV #20Get COVID 19 vaccineGet RSV vaccine RTC in 3 months, do labs ER if worse, he did verbalize his understand ing of the above Coronary arteriosclerosis 26443262 I25.10 ECHO 01/05/2024 : In a fibUS carotid 02/02/2024 HC 08/21/2024 : [facility] Dr Jenkins On ASANot on coreg 3.125mg bidOn dipyridamo le 75mg qidNot on isosorbide ER 30mg dailyOn NTGNot on sotalol 80mg bidOn torsemide 20mg dailyNot on valsartan 160mg bid, d/c 04/12/2024 On entresto 49-51mg bid Dr Spencer warfarin Sees Dr Wyman last OV 08/09/2024 , referred Dr Kathleen Wyman 09/27/2024 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.] Dr Wyman Obstructiv e sleep apnea syndrome 01314873 G47.33 Dr Tyson 08/10/2022 Proteinuria 54826160 R80 .9 On kerendiaLo w protein, more protein in diet and see nephrology Dr Ruiz 03/27/2024 Pain of le ft knee joint 2995050872 94795 M25.562 José Miguel Mcduffie PA 01/25/2024 , s/p kenalog Diarrhea 15635226 R19.7 Has stopped the metformin, ozempicHis opiates [...] 12/06/2024 : Dr Spears 11/16/2024 OV Neuropathy 032647974 G62 .9 Sees his manager product support Is on qutenza (capsacin) Pruritic rash 52615812 L 28.2 Has noted a rash underneath the abdominal fold, none today, but has used clot-betam ethasone in the past with good reliefRene w the clotrimazo le-betamet hasone cream as needed Lesion of skin of face 4318236352 06 L98.9 Sees [place] dermatolog ist in [place] , [place] hyperemic lesion noted on the L scalp and R mid neck Erectile dysfunction 860 751259 F52.21 On sildenafil Does well Paratrache al lymphadenopathy 50670022 R59.0 Dr Ruiz 11/01/2024 : f/u in [address] scan [id number] Rafael Mares MD [facility] [place] [address] [place] [address] 12/14/2024 15:01:37 12/14/2024 16:00:20 Urinary incontinence 366692783 R32 Benign pro static hyperplasia with outflow obstruction 831720446 N40.1 Health Concerns Section Related Observation LastModified by Organization Detai ls LastModified Time None Recorded Concern Status LastModified by Organization Details LastModified Time None Recorded Advance Directives Directive N: Payers Encounter Date Sequence Insurance Name Policy Number Policy Umana Covered Member ID Umana Member ID Guarantor Name 06/05/2024 1 [place] Mannie Nevarez [id number] Mannie Nevarez 06/05/2024 2 [place] [id number] Mannieobdulia Nevarez [id number] 22 Mannieobdulia Nevarez 09/04/2024 1 [place] Mannieobdulia Nevarez [id number] Mannieobdulia Nevarez 09/04/2024 2 [place] [id number] Mannieobdulia Nevarez [id number] 22 Mannie L Nevarez 09/12/2024 1 [place] Mannieobdulia Nevarez [id number] 05 Mannie Britt Nevarez 09/12/2024 2 [place] [id number] Mannieobdulia Nevarez [id number] 22 Mannie L Nevarez 12/06/2024 1 [place] Mannie Nevarez [id number] 05 Mannieobdulia Nevarez 12/06/2024 2 [place] [id number] Mannieobdulia Nevarez [id number] 22 Mannie L Nevarez 12/14/2024 1 [place] Mannie Nevarez [id number] 05 Mannieobdulia Nevarez 12/14/2024 2 [place] [id number] Mannieobdulia Nevarez [id number] 22 Mannie Nevarez Notes Date Note Type [...] the labs on 05/03/2024 Nahed Patterson MD [address] [place] [address], [facility] [address], [place], [address], [facility] [employer] 06/05/2024 15:48:10 09/04/2024 text/html OV 10/20/2023:He re to establish care [facility] social family and surgical history, does [...] routine apt, he feels well today Nahed Patterson MD [address], [facility] [address], [place], [address], [facility] [employer] [facility] 09/06/2024 18:53:52 09/12/2024 text/html this patient is [...] day Rafael Mares MD [address], [facility] [address], [place], [address], [facility] [employer] [facility] 09/12/2024 16:16:03 12/06/2024 text/html OV 10/20/2023:He re [...] take the gabapentin Nahed Patterson MD [address], [place], [address], [facility] 12/06/2024 12:26:32 12/14/2024 text/html this patient has [...] is taking it Rafael Mares MD [address], [place], [address], [employer] 12/14/2024 16:12:44
--- OUTSIDE RECORDS SUMMARY | 2025-02-03 07:11 | XMS_ITS | Clinical Summary ---
Author Organization [facility] Office [facility] Address [address] [place] [address] Care Team Providers Care Security Guard Supervisor Name Role Phone Bennie Nova MD Primary Care Provider [phone] Allergies No known active allergies Medications ALPRAZolam [...] on file Legal Sex Male 12:10 AM TECHNICAL RECRUITER Gender Identity Not on file Sexual Orientation Not on file Obstetrics History Last Filed Vital Signs Vital Sign Reading Time Taken Comments Blood Pressure 128/84 10/02/2024 12:46 PM TECHNICAL RECRUITER Pulse 88 10/02/2024 12:46 PM TECHNICAL RECRUITER Temperature 36.7 C (98.1 F) 08/17/2024 9:05 AM CDT Respiratory Rate 16 10/02/2024 12:46 PM TECHNICAL RECRUITER Oxygen Saturation 98% 10/02/2024 12:46 PM TECHNICAL RECRUITER Inhaled Oxygen Concentration - - Weight 113.4 kg (250 lb) 10/02/2024 12:46 PM TECHNICAL RECRUITER Height 177.8 cm (5' 10 ) 10/02/2024 12:46 PM TECHNICAL RECRUITER Body Mass Index 35.87 10/02/2024 12:46 PM TECHNICAL RECRUITER Plan of Treatment Health Maintenance Due Date [...] Screening-Colonoscopy 08/17/20342023 Medical Devices Implanted Type Area Lead Cargo Mover Device Identifier Shelf Expiration Date Model / [...] Spears MD - 08/17/2024 8:17 AM CDT [facility] GI ENDOSCOPY Patient Name: Reggie Nevarez Procedure Date: 08/17/2024 8:17 AM Date of : 1950 Admit Type: Outpatient Age: 74 Gender: Male Attending MD: Meryl Spears M.D. Room: [facility] ENDOSCOPY ROOM 05 Note Status: [...] polypectomy, one hemostaticclip was successfully placed. Clip varnish supervisor: Home Inventory S[pecialists. Therewas no bleeding at the end of [...] Resected and retrieved. Clip was placed. Clip varnish supervisor: Home Inventory S[pecialists. - Diverticulosis in the left colon. Biopsied. - The distal rectum and anal verge are normal on retroflexion view. Recommendation: - Resume previous diet. - Continue present medications. - Await pathology results. Meryl Spears M.D. Meryl Spears M.D. 08/17/2024 9:11:17 AM . Number of Addenda: 0 Note Initiated On: 08/17/2024 8:17 AM Recognized by the [employer] for promoting quality in endoscopy Meryl Spears MD ENDOSCOPY PROCEDURES Kim l Result * eGFR (07/29/2023 10:21 AM CDT) eGFR >90 90 - 130 mL/min/1. 73 m2 [facility] Comment: Interpretive Data Reference Interval Normal [...] BLOOD ORDERABLES Final Result [facility] Department [place] [address] * (ABNORMAL) Serum lipid panel (04/02/2016 3:08 [...] Recently Relevant to Health Maintenance Insurance MEDICARE [facility] MEDICARE BLUE CROSS MEDICARE SUPPLEMENT MEDICARE [facility] BLUE CROSS MEDICARE SUPPLEMENT Care Teams Security Guard Supervisor Relationship Specialty Start Date End Date Bennie Nova MD [address] [place] [address] PCP - General Cardiovascular Disease 06/02/21
--- OUTSIDE RECORDS SUMMARY | 2025-02-03 07:11 | XMS_ITS | Continuity of Care Document ---
Author Organization [facility] Address [address] [place] [address] [place] [address] Phone Care Team Providers Care Mail Agent Name Role Phone Hoa Gonzalez Unavailable Unavailable Procedures Procedure Date Eye Exam & Treatment Refraction Eye Exam & Treatment Eye Exam & Treatment Refraction Advance Directives Directive Yes / No Effective Date File Name No Information Encounters Encounter Description Practice Location Reason(s) For Visit Diagnoses Date Provider Providers Copied on Encounter [facility], [address] [place] [address] [address], [place], [place], [id number], tel:[phone] [facility] No Information Jan- 4-201 0 Lisa Solitario [address] [facility] [address] , [address], [place], [place], [facility], [place]. tel:[phone] [facility], [address] [place] [address] [address], [place], [place], [id number], [place] tel:[phone] [facility] No Information 9-200 9 Lisa Sol[address]ario [address] [facility], [place], [place], [facility], [place]. tel:[phone] [facility], [address] [place] [address] [address], [place], [place], [id number], tel:[phone] [facility] No Information 7200 7 Lisa Camara. [address] , [address], [place], [address], [place]. tel:[phone] Family History Family Member Type Diagnosis Age At Onset No Information Payers Payer name Insurance type Covered democrat ID Authorheidy guerrero(s) [facility] Out Of State [id number] Social History Type Description Quantity Date Captured [...]
--- OUTSIDE RECORDS SUMMARY | 2025-02-03 07:11 | XMS_ITS | Clinical Summary ---
Author Organization [facility] Address [address] [place], [place] [id number] Care Team Providers Care Consumer Analyst Name Role Phone Unavailable Primary Care Provider [...] age to complete this topic Insurance MEDICARE [facility]
--- OUTSIDE RECORDS SUMMARY | 2025-02-03 07:11 | XMS_ITS | Clinical Summary ---
Author Organization [facility] [place] Address [address] [place] [address] Care Team Providers Care Secretary To The Vice President Name Role Phone Tiana Patterson MD Primary [...] Encounters Date Type Department Care Team Description 01/30/2025 Orders Only [facility] On[facility] [address] [place] [address] Tommy Ruiz MD 12/25/2024 External Device Data ST[facility] ABSTRACTION Provider, Abstract 11/29/2024 External Device Data [facility] ABSTRACTION Provider, Abstract 11/28/2024 External Device Data [facility] ABSTRACTION Provider, Abstract 11/27/2024 External Device Data [place]STRACTION Provider, Abstract 11/20/2024 External Device Data [place]STRA[place] Provider, Abstract 11/06/2024 External Device Data [place] ABSTRACTION Provider, Abstract from Last 3 Months Family History Medical [...] on file Legal Sex Male 3:06 PM HIDE DROPPER Gender Identity Not on file Sexual Orientation Not on file Last Filed Vital Signs Vital Sign Reading Time Taken Comments Blood Pressure 131/79 11/01/2024 11:29 AM HIDE DROPPER Pulse 84 11/01/2024 11:29 AM HIDE DROPPER Temperature 36.6 C (97.8 F) 11/01/2024 11:29 AM HIDE DROPPER Respiratory Rate 16 11/01/2024 11:29 AM HIDE DROPPER Oxygen Saturation 96% 11/01/2024 11:29 AM HIDE DROPPER Inhaled Oxygen Concentration - - Weight 112.5 kg (248 lb) 11/01/2024 11:29 AM HIDE DROPPER Height 177.8 cm (5' 10 ) 11/01/2024 11:29 AM HIDE DROPPER Body Mass Index 35.58 11/01/2024 11:29 AM HIDE DROPPER Plan of Treatment Upcoming Encounters Date Type Department Care Team (Late st Contact Info) Description 02/08/2025 11:30 AM CDT Office Visit [facility] Oncology and Hematology - [place] [address] [facility] [address] [place] [address] Tommy Ruiz MD [address] [facility] [address] [place] [address] Health Maintenance Due Date Last [...] series) 2025 COLORECTAL SCREENING 08/17/2034 08/17/2024, 08/17/20 24 Colorectal Cancer Screening 08/17/2034 Procedures Procedure Name Priority Date/Time Associated Diagnosis Comments COMPREHENSIVE METABOLIC PANEL Routine 2025 2:[address] CHEST ABDOMEN PELVIS W CONT Routine 2025 9:00 AM CDT from Last 3 Months Results * COMPREHENSIVE METABOLIC PANEL (2025 2:42 PM CDT) Blood us Tommy Ruiz MD CHEMISTRY ORDERABLES Final Resu lt * CT CHEST ABDOMEN PELVIS W CONT (2025 9:00 AM CDT) Anatomical Region Laterality Modality Chest Computed Tomogra phy us Tommy Ruiz MD CT ORDERABLES Final Result from Last 3 Months Insurance [address] [place] [address] MEDICARE PART A AND B BCBS SUPP Care Teams Secretary To The Vice President Relationship Specialty Start Date End Date Tiana Patterson MD [address] [place] [phone] PCP - General Internal Medicine 11/02/24
--- OUTSIDE RECORDS SUMMARY | 2025-02-03 07:11 | XMS_ITS | CONTINUITY OF CARE DOCUMENT ---
Author Name brant guo Address Unknown Organization [facility] Address [address] [place] [address] Phone [phone] Care Team Providers Care Pulverizer Name Role Phone Karl Wyman MD Unavailable [phone] Karl Wyman MD Unavailable NAHED WALTER [...] alysa slavere Diabetes mellitus, type 2 active Kral barfield MD neg egfr Systolic heart failure, [...] In-person encounter Office Visit Karl Wyman MD [facility] MicroalbuminuriaAdenomatous colonic polyp - In-person encounter Office Visit Karl Wyman MD [facility] - In-person encounter Office Visit Karl Wyman MD [facility] - In-person encounter Office Visit Kvng Jenkins MD [facility] Mitral regurgitation, severe - In-person encounter Office Visit Karl Wyman MD [facility] CAD s/p CABG;carotid plaueSystolic heart failure, chronic - In-person encounter Office Visit Karl Wyman MD [facility] CAD s/p CABG;carotid plauePulmonary hypertensionS/P Dual chamb PCM - Biotronik ( MRI Safe) - In-person encounter Office Visit Meet Naranjo MD [facility] - In-person encounter Office Visit Karl Wyman MD [facility] CAD s/p CABG;carotid plaueOSA, adult;cpap in tolDiabetes mellitus, type 2Systolic heart failure, chronicScreeningPulsatile tinnitus, bilateralBradycardia, severe - In-person encounter Office Visit Meet Naranjo MD [facility] - In-person encounter Office Visit Meet Naranjo MD [facility] - In-person encounter Office Visit Meet Naranjo MD [facility] ScreeningPVCsSick sinus syndrome - In-person encounter Office Visit Karl Wyman MD [facility] mechanical aortic valve replacementAtrial fib;NML TSHMorbid obesitySystolic heart failure, chronicDiarrheaIRON DEFICIENCYFAMILY HISTORY OF HEART DISEASE - In-person encounter Office Visit Lincoln Maldonado MD [facility] - In-person encounter Office Visit Karl Wyman MD [facility] CAD s/p CABG;carotid plauemechanical aortic valve replacementHypertensionHyperlipi demia;NEG CRP and lpaOSA, adult;cpap in tolAtrial fib;NML TSHMorbid obesityDiabetes mellitus, type 2Systolic heart failure, chronic VITAL SIGNS Date Observation Value Provider Body Mass Index (Ratio) 35.41 kg/m2 Ronda Wyman MD blood pressure, diastolic 79 mm[Hg] [facility], systolic 131 mm[Hg] Gissellemanny bailey [place] oxygen saturation, oximetry 99 % [facility] pulse rate 85 /min [facility] blood pressure, cuff size regular [facility] weight E&M 246.8 [lb_av] [facility] height E&M 70 [in_i] [facility] Body Mass Index (Ratio) 34.43 kg/m2 Ronda [...] Isa Ruiz blood pressure, cuff size regular [facility] weight E&M 242.6 [lb_av] Isa Waller [...] lder height E&M 70 [in_i] Brenda Gruenenfe [facility] Body Mass Index (Ratio) 34.86 kg/m2 Ronda [...] ruenenfelder pulse rate 70 /min Brenda Tomas [facility] weight E&M 243 [lb_av] Brenda Tomas [facility] height E&M 70 [in_i] Brenda Tomas [facility] Body Mass Index (Ratio) 35.01 kg/m2 Ronda Wyman MD weight E&M 244 [lb_av] [facility] blood pressure, cuff size regular Tr lisette Null blood pressure, diastolic 92 mm[Hg] lisette Null blood pressure, systolic 157 mm[Hg] [facility] oxygen saturation, oximetry 97 % [facility] respiratory rate E&M 18 /min [facility] pulse rate 67 /min [facility] Body Mass Index (Ratio) 34.86 kg/m2 Estiven Naranjo MD oxygen saturation, oximetry 97 % Brenda Vargas respiratory rate E&M 12 /min Brenda potter pulse rate 66 /min Brenda Marin [facility] weight E&M 243 [lb_av] Brenda Marin [facility] height E&M 70 [in_i] Brenda Tomas Body Mass Index (Ratio) 34.29 kg/m2 Ochoa Becerra blood pressure, cuff size regular Ja rret blood pressure, diastolic 76 mm[Hg] Ja rret blood pressure, systolic 126 mm[Hg] Jar ret pulse rate 79 /min Evan oxygen saturation, oximetry 98 % Eavn respiratory rate E&M 16 /min Evan Easterday weight E&M 239 [lb_av] Evan y height E&M 70 [in_i] Evan y Body Mass Index (Ratio) 34.72 kg/m2 Estiven Naarnjo MD blood pressure, diastolic 80 mm[Hg] Li nkLogic blood pressure, systolic 172 mm[Hg] Alessia kLogic blood pressure, cuff size regular Ke rri Gruenenfelder blood pressure, diastolic 80 mm[Hg] Ke rri Gruenenfelder blood pressure, systolic 172 mm[Hg] Spencer ri Sachineld oxygen saturation, oximetry 98 % [facility] respiratory rate E&M 12 /min Brenda [facility] pulse rate 90 /min [...] Ronda Wyman MD height E&M 70 [in_i] [facility] blood pressure, cuff size regular [facility] blood pressure, diastolic 77 mm[Hg] [facility] blood pressure, systolic 148 mm[Hg] [facility] pulse rate 92 /min [facility] oxygen saturation, oximetry 99 % [facility] respiratory rate E&M 15 /min [facility] iller weight E&M 244 [lb_av] [facility] ALLERGIES Allergy Name Onset Date [...] TABLET BY MOUTH TWICE A DAY - Kral Wyman MD Entresto 97-103 mg tablet completed [...] pantoprazole 40 mg tablet,delayed release (DR/EC) active [facility] alprazolam 1 mg tablet completed - Karl Wyman MD sotalol 80 mg tablet completed - [facility]SS[facility] CALL CIRCUIT WORKER torsemide 20 mg tablet completed one tab as needed - Karl Wyman MD aspirin 81 mg capsule completed - [facility] hydrocodone-aceta minophen 10-300 mg tablet completed - Karl Wyman MD sildenafil 100 mg tablet completed - Karl Wyman MD albuterol sulfate 90 mcg/actuation HFA aerosol inhaler active Rose Mary Vasquez omega 3 completed - [facility] CALL CIRCUIT WORKER furosemide 20 mg tablet completed - [facility] rosuvastatin 10 mg tablet completed - [...] history of marijuana use no Julia Ventimiglia CALL CIRCUIT WORKER drug use no Julia Ventimig heidi CALL CIRCUIT WORKER alcohol use no Julia Ventimig heidi CALL CIRCUIT WORKER smoking status Never smoker Julia Ventim iglia CALL CIRCUIT WORKER FUNCTIONAL STATUS Date Observation Value Provider HRA, [...] Management Plan continue current therapy Julia Giles CALL CIRCUIT WORKER INSURANCE PROVIDERS Payer name Policy type / Coverage type Becky red constitution party ID [place] Medicare [id number] [facility] [id number] ADVANCE DIRECTIVES Name Date DISCUSSED - NO DECISION MADE TREATMENT PLAN Date Name Performer :pro 1130 ef 35 Karl Wyman MD Cardiology: c ardiovented Karl Wyman MD Cardiology: 1 5% PVC burden, may not been true PVCs due to presence of AFIB Karl Wyman MD Cardiology Kral Wyman MD Cardiology: i ma open to [...] Cardiology: 3 1 Karl Wyman MD Cardiology Kalr Wyman MD Cardiology Karl Wyman MD Cardiology: [...] cx stnet open nod dom righ 90% aKrl Wyman MD Cardiology:pap 30, a vr good, mod to severe mr and mild ai and mild tr Karl Wyman MD Cardiology: n eg pft N EG BRAIN CT Karl Wyman MD :31 Karl Wyman MD Electrophysiology Saulius Kalvai herb SNYDER Electrophysiology Saulius Kalvai tis MD Cardiology: 3 0 Kral Wyman MD Cardiology Karl Wyman MD Cardiology:up [...] a .pacemaker Orders: 9203 MOD 45-59 min (CPT-[id number]) Meet Naranjo MD Electrophysiology:wo re holter in [...] Tablet (Valsartan) Metformin 1,000 Mg Tablet (Metformin) [facility] Cardiology:untreated with AHI of 8=48 and oxygen saturation dropping to 80% w ill refer to pulmonary for further management [facility] Cardiology:with EF o f 60% [...] (Isosorbide mononitrate) Valsartan 160 Mg Tablet (Valsartan) [facility] Cardiology: T he following medications were removed from the medication list: Furosemide 20 Mg Tablet (Furosemide) Sotalol 80 Mg Tablet (Sotalol) His updated medication list for this problem includes: Sotalol 80 Mg Tablet (Sotalol) Torsemide 20 Mg Tablet (Torsemide) Valsartan 160 Mg Tablet (Valsartan) Julia Giles [facility] Cardiology:Hx of CAB G and stents in [...] Release 24 Hr (Isosorbide mononitrate) Julia Giles [facility] Cardiology:currently in afib r ate is controlled [...] obtain his recent tele monitor from previous bass fisher T he following medications were removed from the medication list: Sotalol 80 Mg Tablet (Sotalol) His updated medication list for this problem includes: Dipyridamole 75 Mg Tablet (Dipyridamole) ..... 1 tablet by mouth four times a day Sotalol 80 Mg Tablet (Sotalol) Nitroglycerin 0.4 Mg Tablet, Sublingual (Nitroglycerin) Isosorbide Mononitrate 30 Mg Tablet Extended Release 24 Hr (Isosorbide mononitrate) Julia Giles [facility] Date Name PROTHROMBIN TIME WIT H INR [...] W/EGFR Carotid Duplex Bilat eral DLCO - 16437 FRC - 76719 FVC - 03205 CXR- PA/Lat FOLATE, SERUM VITAMIN B12 IRON [...] ad d on Karl Wyman MD completed Gamla Wyman MD complete d Gamal Wyman MD complete d Gamal Wymna MD complete d Gamal Ulloa RN completed [...] MD complete d FVC / MVV - 27373 Karl Wyman MD c ompleted SpO2 w/o 6min walk/titration Karl Wyman MD completed SVC - 79083 Karl Wyman MD complet ed DLCO - 18136 Karl Wyman MD comple venus Gamal Pacheco [...]
--- OUTSIDE RECORDS SUMMARY | 2025-02-03 07:11 | XMS_ITS | Referral Summary ---
Author Organization [facility] Address [address] [place] [address] Care Team Providers Care Robot Technician Name Role Phone Bennie Nova MD Primary [...] on file Legal Sex Male 12:10 AM RESOURCE SPECIALIST TEACHER Gender Identity Not on file Sexual Orientation Not on file Last Filed Vital Signs Vital Sign Reading Time Taken Comments Blood Pressure 128/84 10/02/2024 12:46 PM RESOURCE SPECIALIST TEACHER Pulse 88 10/02/2024 12:46 PM RESOURCE SPECIALIST TEACHER Temperature 36.7 C (98.1 F) 08/17/2024 9:05 AM CDT Respiratory Rate 16 10/02/2024 12:46 PM RESOURCE SPECIALIST TEACHER Oxygen Saturation 98% 10/02/2024 12:46 PM RESOURCE SPECIALIST TEACHER Inhaled Oxygen Concentration - - Weight 113.4 kg (250 lb) 10/02/2024 12:46 PM RESOURCE SPECIALIST TEACHER Height 177.8 cm (5' 10 ) 10/02/2024 12:46 PM RESOURCE SPECIALIST TEACHER Body Mass Index 35.87 10/02/2024 12:46 PM RESOURCE SPECIALIST TEACHER Plan of Treatment Not on file Medical Devices Implanted Type Area Gm Mobile Device Identifier Shelf Expiration Date Model / [...] Spears MD - 08/17/2024 8:17 AM CDT [facility] GI ENDOSCOPY Patient Name: Reggie Nevarez Procedure Date: 08/17/2024 8:17 AM Date of : 1950 Admit Type: Outpatient Age: 74 Gender: Male Attending MD: Meryl Spears M.D. Room: [facility] ENDOSCOPY ROOM 05 Note Status: [...] polypectomy, one hemostaticclip was successfully placed. Clip book canvasser: [employer]. Therewas no bleeding at the end of [...] Resected and retrieved. Clip was placed. Clip book canvasser: [employer]. - Diverticulosis in the left colon. Biopsied. - The distal rectum and anal verge are normal on retroflexion view. Recommendation: - Resume previous diet. - Continue present medications. - Await pathology results. Meryl Spears M.D. Meryl Spears M.D. 08/17/2024 9:11:17 AM . Number of Addenda: 0 Note Initiated On: 08/17/2024 8:17 AM Recognized by the [employer] for promoting quality [...] BLOOD ORDERABLES Final Result PHILIPPE CASTORENA [facility] Department [place] [address] * (ABNORMAL) Serum lipid panel (04/02/2016 3:08 [...] Recently Relevant to Health Maintenance Insurance [facility]ICARE [facility] MEDICARE BLUE CROSS MEDICARE SUPPLEMENT MEDICARE [facility] BLUE CROSS MEDICARE SUPPLEMENT Care Teams Robot Technician Relationship Specialty Start Date End Date Bennie Nova MD [address] [place] [address] PCP - General Cardiovascular Disease 06/02/21
--- OUTSIDE RECORDS SUMMARY | 2025-02-03 07:11 | XMS_ITS | Data Portability ---
Author Organization ANGELITO LUCIANMyla Taylor Address [address] [place], [place] [address], [place] [address] Assessment No assessment recorded. Plan of Treatment [...] 50 mcg/0.25mL dose 12/12/2020 completed WAYNE Nuñez [place] - [place] 12/12/2020 14:14:04 COVID-19, mRNA, LNP-S, PF, 100 mcg/0.5mL dose or 50 mcg/0.25mL dose 01/12/2021 completed Emily Carmona MA [facility] SI 01/12/2021 16:25:39 Past Encounters Encounter ID Performer Location Encounter Start Date Encounter Closed Date Diagnosis/Indication Diagnosis SNOMED-CT Code Diagnosis ICD10 Code Diagnosis Note [id number] ISAI Valdez 14 IM [address] [place] [phone] 12/12/2020 12:21:04 12/12/2020 18:38:06 Administration of SARS-CoV-2 antigen vaccine 774689980 Z23 [id number] ISAI Valdez 14 IM [address] [place] [phone] 01/09/2021 12:02:47 01/12/2021 07:55:43 Administration of SARS-CoV-2 antigen vaccine 746681979 Z23 Health Concerns Section Related Observation LastModified by Organization Detai ls LastModified Time None Recorded Concern Status LastModified by Organization Details LastModified Time None Recorded Advance Directives Directive None Recorded Payers Encounter Date Sequence Insurance Name Policy Number Policy Umana Covered Member ID Umana Member ID Guarantor Name 12/12/2020 1 [place] Reggie Nevarez [id number] Reggie Nevarez 12/12/2020 2 [place] [id number] Reggie Nevarez [id number] Reggie Nevarez 01/09/2021 1 [place] Reggie Nevarez [id number] Reggie Nevarez 01/09/2021 2 [place] [id number] Reggie Nevarez [id number] Reggie Nevarez
--- OUTSIDE RECORDS SUMMARY | 2025-02-03 07:12 | XMS_ITS ---
Author Organization [facility] Address [address] [place] [address] [place] [address] Care Team Providers Care Plate Put In Worker Name Role Phone Gigi Justin Unavailable [phone] SOCIAL HISTORY Sex Assigned At : Social History Observation Description Sex Assigned At Male Encounters Encounter Location Date Provider Diagnosis [place] [facility] [address] [place] [address] 12/26/2024 Gigi Justin PLAN OF TREATMENT Next Appt Details Provider Name:Gigi Justin , 02/13/2025 04:15:00 PM, [address] [facility], [facility] [address], [place], [address], Progress Notes * MANNIE CABELLODOB:1950 ( 75 yo F)Acc No.[id number]:12/26/2024 Progress Notes Patient: MANNIE CABELLO Provider: MD DENY, Brandon.Jose.C.P, F.A.S.N. :1950 Age:74 Y Sex:Female Date:12/26/2024 Address:[address] [place], [place] [address] [address], [place] [address] Subjective: * Chief Complaints: * * Medical History: Objective: Assessment: Plan: * Treatment: * Billing Information: * Visit Code: * Procedure Codes: * Sign off status: Pending * Provider: MD DENY, Brandon.Jose.C.P, F.A.S.N. Date: 12/26/2024
--- OUTSIDE RECORDS SUMMARY | 2025-02-03 07:12 | XMS_ITS ---
Author Organization [facility] Address [address] [place] [address] Care Team Providers Care Delivery Helper Name Role Phone Gigi Justin Unavailable [phone] MEDICATIONS Medication SIG (Take, Route, Frequency, Duration) Notes Start Date End Date Status Ergocalciferol 1.25 MG (59854 UT) 1 capsule Orally Once a week for 90 day(s) 04/25/2024 09/29/2025 Active Calcitriol 0.25 MCG 1 capsule Orally Onc e a day for 90 day(s) 04/25/2024 09/29/2025 Active SOCIAL HISTORY Sex Assigned At : Social History Observation Description Sex Assigned At Male Encounters Encounter Location Date Provider Diagnosis [place] [facility] [address] [facility] [address] [place] [address] 01/02/2025 Gigi Justin PLAN OF TREATMENT Medication Medication Name Sig Start Date Stop Date Notes Ergocalciferol 1.25 MG (5000 0 UT) 1 capsule Orally Once a week for 90 day(s) 04/25/2024 09/29/2025 Calcitriol 0.25 MCG 1 capsule Orally Onc e a day for 90 day(s) 04/25/2024 09/29/2025 Next Appt Details Provider Name:Gigi Justin , 02/13/2025 04:15:00 PM, [address] [facility], [facility], [place], [address], Progress Notes * CABELLOMANNIEDOB:1950 ( 75 yo F)Acc No.[id number]:01/02/2025 Patient: MANNIE CABELLO :1950 Age:74 Y Sex:Female Address:[address] [place] [address] [address], [place] [address] * Refills Refill Ergocalciferol Capsule, 1.25 MG (01003 UT), Orally, 13, 1 capsule, Once a week, 90 day(s), Refills=2 Refill Calcitriol Capsule, 0.25 MCG, Orally, 90 Capsule, 1 capsule, Once a day, 90 day(s), Refills=2 * * Date:
--- OUTSIDE RECORDS SUMMARY | 2025-02-03 07:12 | XMS_ITS | Encounter Summary ---
Author Organization [facility] [employer] [facility] Address [address] [place] [address] Care Team Providers Care Lab Support Technician Name Role Phone Tiana Patterson MD Primary Care Provider Encounter Details Date Type Department Care Team (Late Contact Info) Description 01/30/2025 Orders Only [facility] Oncology and Hematology - [address] [place] [address] Tommy Ruiz MD [facility] [address] [place] [phone] Social History Tobacco Use Types Packs/Day Years Used Date Smoking Tobacco: Never Smokeless Tobacco: Never Alcohol Use Standard Drinks/Week Comments Never 0 (1 standard drink = 0.6 oz pur e alcohol) Sex and Gender Information Value Date Recorded Sex Assigned at Not on file Legal Sex Male 3:06 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 Gender Identity Not on file Sexual Orientation Not on file documented as of this encounter Plan of Treatment Upcoming Encounters Date Type Department Care Team (Late st Contact Info) Description 02/08/2025 11:30 AM CDT Office Visit [facility] Oncology and Hematology - [address] [place] [address] Tommy Ruiz MD [facility] [address] [place] [phone] documented as of this encounter Procedures Procedure Name Priority Date/Time Associated Diagnosis Comments COMPREHENSIVE METABOLIC PANEL Routine 2025 2:[address] CHEST ABDOMEN PELVIS W CONT Routine 2025 9:00 AM CDT documented in this encounter Results * COMPREHENSIVE METABOLIC PANEL (2025 2:42 PM CDT) Blood us Tommy Ruiz MD CHEMISTRY ORDERABLES Final Resu lt * CT CHEST ABDOMEN PELVIS W CONT (2025 9:00 AM CDT) Anatomical Region Laterality Modality Chest Computed Tomogra phy us Tommy Ruiz MD CT ORDERABLES Final Result documented in this encounter Visit Diagnoses Not on filedocumented in this encounter Care Teams Lab Support Technician Relationship Specialty Start Date End Date Tiana Patterson MD [address] [address] PCP - General Internal Medicine 11/02/24 documented as of this encounter
--- OUTSIDE RECORDS SUMMARY | 2025-02-03 07:12 | XMS_ITS | Encounter Summary ---
Author Organization [facility] Address [address] [place] [address] Care Team Providers Care Support Worker Name Role Phone Bennie Nova MD Primary Care Provider Alison ilfrancisco javier Encounter Details Date Type Department Care Team (Late st Contact Info) Description 11/21/2019 Lab Requisition [facility] [address] [facility] [place] [address] Hali Fletcher DO [address] [facility] [address] [place] [address] Social History Tobacco Use Types Packs/Day Years [...] Comments DERMATOPATHOLOGY Routine 11/20/2019 12:0 0 AM DIRECTOR OF EDUCATION AND TRAINING documented in this encounter Results * DERMATOPATHOLOGY (11/20/2019 12:00 AM DIRECTOR OF EDUCATION AND TRAINING) Case Report Dermatopathology Report Case: [id number] Authorizing Provider: Hali Fletcher DO Collected: 11/20/2019 12:00 AM Ordering Location: [facility] Received: 11/21/2019 01:31 PM Pathologist: Warner Garcia MD Specimen: Skin, left roman catholic 0 7:23 PM [facility] DERMATOPATHOLOGY LABORATORY Final Diagnosis Specimen A. SKIN, left roman catholic: SQUAMOUS CELL CARCINOMA, WELL DIFFERENTIATED (C44.329) 0 7:23 PM DIRECTOR OF EDUCATION AND TRAINING DERMATOPATHOLOGY LABORATORY Clinical History R/O NMSC, non-healing. 0 7:23 PM DIRECTOR OF EDUCATION AND TRAINING DERMATOPATHOLOGY LABORATORY Gross Description Specimen A: Received is one formalin filled container labeled with the patient's name and designated left roman catholic. The specimen consists of a shave measuring [id number]. Jar 0. 0 7:23 PM [facility] DERMATOPATHOLOGY LABORATORY Microscopic Description Specimen A. SKIN, left roman catholic: Arising in the epidermis and extending into the dermis there are irregularly shaped aggregates of keratinocytes showing evidence of premature cornification. 0 7:23 PM DIRECTOR OF EDUCATION AND TRAINING DERMATOPATHOLOGY LABORATORY Disclaimer An external and internal positive and negative controls are appropriate for the histochemical, immunohistochemical and immunofluorescence stain(s) in this case (if any), except where stated explicitly. The performance characteristics of the stain(s) cited in this report were developed and its performance characteristic determined by the Dermatopathology Laboratory at [facility], directed by Dr. Luba Garcia. These tests need not be, and therefore are not, approved by the [place] Food and Drug Administration. The tests are used for clinical purposes. Billing Codes Specimen Charges Stain Charges 45987 1 0 7:23 PM DIRECTOR OF EDUCATION AND TRAINING DERMATOPATHOLOGY LABORATORY Embedded Images 0 7:23 PM DIRECTOR OF EDUCATION AND TRAINING DERMATOPATHOLOGY LABORATORY Pathology/Cytolog y TISSUE SPECIMEN FROM SKIN / Unknown 11/20/2019 11/21/2019 1:31 PM DIRECTOR OF EDUCATION AND TRAINING Hali Fletcher DO LAB - PATHOLOGY/C YTOLOGY ORDERABLES DERMATOPATHOLOGY LABORATORY [facility] - Department of Dermatology [address] [place] [address], [address] [phone] documented in this encounter Visit Diagnoses Not on filedocumented in this encounter Care Teams Support Worker Relationship Specialty Start Date End Date Bennie Nova MD PCP - General Internal Medicine 10/10/12 documented as of this encounter
--- OUTSIDE RECORDS SUMMARY | 2025-02-03 08:51 | XMS_ITS | Clinical Summary ---
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 Gender Identity Not on file Sexual Orientation Not on file Obstetrics History Last Filed Vital Signs Vital Sign Reading Time Taken Comments Blood Pressure 128/84 10/02/2024 12:46 PM PIERCING MILL OPERATOR Pulse 88 10/02/2024 12:46 PM PIERCING MILL OPERATOR Temperature 36.7 C (98.1 F) 08/17/2024 9:05 AM CDT Respiratory Rate 16 10/02/2024 12:46 PM PIERCING MILL OPERATOR Oxygen Saturation 98% 10/02/2024 12:46 PM PIERCING MILL OPERATOR Inhaled Oxygen Concentration - - Weight 113.4 kg (250 lb) 10/02/2024 12:46 PM PIERCING MILL OPERATOR Height 177.8 cm (5' 10 ) 10/02/2024 12:46 PM PIERCING MILL OPERATOR Body Mass Index 35.87 10/02/2024 12:46 PM PIERCING MILL OPERATOR Plan of Treatment Health Maintenance Due Date [...] Screening-Colonoscopy 08/17/20342023 Medical Devices Implanted Type Area Mine Wirer Device Identifier Shelf Expiration Date Model / [...] Spears MD - 08/17/2024 8:17 AM CDT [facility] GI ENDOSCOPY Patient Name: Reggie Nevarez Procedure Date: 08/17/2024 8:17 AM Date of : 1950 Admit Type: Outpatient Age: 74 Gender: Male Attending MD: Meryl Spears M.D. Room: [facility] ENDOSCOPY ROOM 05 Note Status: Finalized [...] polypectomy, one hemostaticclip was successfully placed. Clip librarian assistant: Wh[employer]. Therewas no bleeding at the end of [...] Resected and retrieved. Clip was placed. Clip librarian assistant: [employer]. - Diverticulosis in the left colon. Biopsied. - The distal rectum and anal verge are normal on retroflexion view. Recommendation: - Resume previous diet. - Continue present medications. - Await pathology results. Meryl Spears M.D. Meryl Spears M.D. 08/17/2024 9:11:17 AM . Number of Addenda: 0 Note Initiated On: 08/17/2024 8:17 AM Recognized by the [place] [employer] for promoting quality in endoscopy Meryl Spears MD ENDOSCOPY PROCEDURES Kim l Result * eGFR (07/29/2023 10:21 AM CDT) eGFR >90 90 - 130 mL/min/1. 73 m2 [facility] Comment: Interpretive Data Reference Interval Normal >/= [...] BLOOD ORDERABLES Final Result [facility]IL[facility] Department [place] [address] * (ABNORMAL) Serum lipid panel (04/02/2016 3:08 [...] Recently Relevant to Health Maintenance Insurance MEDICARE [facility] MEDICARE BLUE CROSS MEDICARE SUPPLEMENT MEDICARE [facility] BLUE CROSS MEDICARE SUPPLEMENT Care Teams Ladler Relationship Specialty Start Date End Date Bennie Nova MD [address] [place] [address] PCP - General Cardiovascular Disease 06/02/21
--- OUTSIDE RECORDS SUMMARY | 2025-02-03 08:51 | XMS_ITS | Encounter Summary ---
Author Organization [facility] Address [address] [place] [address] Care Team Providers Care Directory Clerk Name Role Phone Bennie Nova MD Primary Care Provider Alison ilfrancisco javier Encounter Details Date Type Department Care Team (Late st Contact Info) Description 04/13/2024 Lab Requisition [facility] - DermPath Lab [address] [facility], [place] [address] Lou Clark PA-C [address] [place] [address] Neoplasm of uncertain behavior of [...] AM CDT) Case Report Dermatopathology Report Case: [id number] Authorizing Provider: Lou Clark, Collected: 04/13/2024 12:00 AM HELEN Ordering Location: [facility] - Received: 04/16/2024 11:01 AM DermPath [...] characteristic determined by the Dermatopathology Laboratory at [facility], directed by Dr. Luba Garcia. These tests need not be, and therefore are not, approved by the [place] Food and Drug Administration. The tests are used for clinical purposes. Billing Codes Specimen Charges Stain Charges 57160 17582 1 1 4 1:29 PM CDT DERMATOPATHOLOGY LABORATORY Embedded Images 1:29 PM CDT DERMATOPATHOLOGY LABORATORY Pathology/Cytology TISSUE SPECIMEN FROM SKIN / Unknown 04/13/2024 04/16/2024 11:01 AM CDT Miscellaneous samples (specimen) TISSUE SPECIMEN FROM SKIN / Unknown 04/13/2024 04/16/2024 11:01 AM CDT Lou Clark PA-C LAB - PATHOL OGY/CYTOLOGY ORDERABLES DERMATOPATHOLOGY LABORATORY [facility] - Department of Dermatology [facility] [address] [place] [address], [address] [phone] documented in this encounter Visit Diagnoses Diagnosis Neoplasm of uncertain behavior of skin documented in this encounter Care Teams Directory Clerk Relationship Specialty Start Date End Date Bennie Nova MD PCP - General Internal Medicine 10/10/12 documented as of this encounter
--- OUTSIDE RECORDS SUMMARY | 2025-02-03 08:51 | XMS_ITS | Encounter Summary ---
Author Organization [facility] Address [address] [place] [address] Care Team Providers Care Propulsion Motor And Generator Repairer Name Role Phone Tiana Patterson MD Primary Care Provider Encounter Details Date Type Department Care Team (Late Contact Info) Description 01/30/2025 Orders Only [facility] Oncology and Hematology - [address] [place] [address] Tommy Ruiz MD [facility] [address] [place] [phone] Social History Tobacco Use Types Packs/Day Years Used Date Smoking Tobacco: Never Smokeless Tobacco: Never Alcohol Use Standard Drinks/Week Comments Never 0 (1 standard drink = 0.6 oz pur e alcohol) Sex and Gender Information Value Date Recorded Sex Assigned at Not on file 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 Gender Identity Not on file Sexual Orientation Not on file documented as of this encounter Plan of Treatment Upcoming Encounters Date Type Department Care Team (Late st Contact Info) Description 02/08/2025 11:30 AM CDT Office Visit [facility] Oncology and Hematology - [address] [place] [address] Tommy Ruiz MD [facility] [address] [place] [phone] documented as of this encounter Procedures [...] on filedocumented in this encounter Care Teams Propulsion Motor And Generator Repairer Relationship Specialty Start Date End Date Tiana Patterson MD [address] [address] PCP - General Internal Medicine 11/02/24 documented as of this encounter
--- OUTSIDE RECORDS SUMMARY | 2025-02-03 08:51 | XMS_ITS | CONTINUITY OF CARE DOCUMENT ---
Author Name brant guo Address Unknown Organization [facility] Address [address] [place] [address] Phone [phone] Care Team Providers Care Plaster Foreman Name Role Phone Karl Wyman MD Unavailable Karl Wyman MD Unavailable [phone] NAHED WALTER MD Unavailable PROBLEMS Condition Status Date Provider Notes Vitamin D deficiency active Karl Hylton D B12 deficiency active Karl Wyman MD [facility]AL [facility] residential anticoagulant therapy active Rosalie Ulloa RN CAD [...] In-person encounter Office Visit Karl Wyman MD [facility] MicroalbuminuriaAdenomatous colonic polyp - In-person encounter Office Visit Karl Wyman MD [place] [facility] - In-person encounter Office Visit Karl Wyman MD [place] [facility] - In-person encounter Office Visit Kvng Jenkins MD [facility] Mitral regurgitation, severe - In-person encounter Office Visit Karl Wyman MD [place] [facility] CAD s/p CABG;carotid plaueSystolic heart failure, chronic - In-person encounter Office Visit Karl Wyman MD [place] [facility] CAD s/p CABG;carotid plauePulmonary hypertensionS/P Dual chamb PCM - Biotronik ( MRI Safe) - In-person encounter Office Visit Meet Naranjo MD [facility] - In-person encounter Office Visit Karl Wyman MD [facility] CAD s/p CABG;carotid plaueOSA, adult;cpap in tolDiabetes mellitus, type 2Systolic heart failure, chronicScreeningPulsatile tinnitus, bilateralBradycardia, severe - In-person encounter Office Visit Meet Naranjo MD [facility] - In-person encounter Office Visit Meet Naranjo MD [facility] - In-person encounter Office Visit Meet Naranjo MD [facility] ScreeningPVCsSick sinus syndrome - In-person encounter Office Visit Karl Wyman MD [place] [facility] mechanical aortic valve replacementAtrial fib;NML TSHMorbid obesitySystolic heart failure, chronicDiarrheaIRON DEFICIENCYFAMILY HISTORY OF HEART DISEASE - In-person encounter Office Visit Lincoln Maldonado MD [facility] - In-person encounter Office Visit Karl Wyman MD [facility] CAD s/p CABG;carotid plauemechanical aortic valve replacementHypertensionHyperlipi demia;NEG CRP and lpaOSA, adult;cpap in tolAtrial fib;NML TSHMorbid obesityDiabetes mellitus, type 2Systolic heart failure, chronic VITAL SIGNS Date Observation Value Provider Body Mass Index (Ratio) 35.41 kg/m2 Ronda Wyman MD blood pressure, diastolic 79 mm[Hg] [facility] [place] blood pressure, systolic 131 mm[Hg] Gissellemanny bailey [place] oxygen saturation, oximetry 99 % [facility] pulse rate 85 /min [facility] blood pressure, cuff size regular [facility] weight E&M 246.8 [lb_av] [facility] height E&M 70 [in_i] [facility] Body Mass Index (Ratio) 34.43 kg/m2 [...] Isa Ruiz blood pressure, cuff size regular [facility] weight E&M 242.6 [lb_av] Isa Waller height [...] lder height E&M 70 [in_i] Brenda Gruenenfe [facility][note 2] Body Mass Index (Ratio) 34.86 kg/m2 Ronda [...] ruenenfelder pulse rate 70 /min Brenda Tomas [facility][note 2] weight E&M 243 [lb_av] Brenda Tomas [facility][note 2] height E&M 70 [in_i] Brenda Tomas [facility][note 2] Body Mass Index (Ratio) 35.01 kg/m2 Ronda Wyman MD weight E&M 244 [lb_av] [facility], cuff size regular Tr lisette Null blood pressure, diastolic 92 mm[Hg] lisette Null blood pressure, systolic 157 mm[Hg] [facility] oxygen saturation, oximetry 97 % [facility] respiratory rate E&M 18 /min [facility] pulse rate 67 /min [facility] Body Mass Index (Ratio) 34.86 kg/m2 Estiven Naranjo MD oxygen saturation, oximetry 97 % Brenda Vargas respiratory rate E&M 12 /min Brenda potter pulse rate 66 /min Brenda Marin [facility][note 2] weight E&M 243 [lb_av] Brenda Marin [facility][note 2] height E&M 70 [in_i] Brenda Tomas Body [...] [place] oxygen saturation, oximetry 98 % [facility] respiratory rate E&M 12 /min [facility] pulse rate 90 /min Brenda Tomas lder [...] Ronda Wyman MD height E&M 70 [in_i] [facility] blood pressure, cuff size regular [facility] blood pressure, diastolic 77 mm[Hg] [facility] blood pressure, systolic 148 mm[Hg] [facility] pulse rate 92 /min [facility] oxygen saturation, oximetry 99 % [facility] respiratory rate E&M 15 /min [facility] iller weight E&M 244 [lb_av] [facility] ALLERGIES Allergy Name Onset Date Reaction [...] pantoprazole 40 mg tablet,delayed release (DR/EC) active [facility] alprazolam 1 mg tablet completed - Karl Wyman MD sotalol 80 mg tablet completed - [facility] [place]note 2]miglwi CALL BOX WIRER torsemide 20 mg tablet completed one tab as needed - Karl Wyman MD aspirin 81 mg capsule completed - [facility] hydrocodone-aceta minophen 10-300 mg tablet completed - Karl Wyman MD sildenafil 100 mg tablet completed - Karl Wyman MD albuterol sulfate 90 mcg/actuation HFA aerosol inhaler active Rose Mary Vasquez omega 3 completed - [facility] W[facility] furosemide 20 mg tablet completed - [facility] rosuvastatin 10 mg tablet completed - Chay [...] of marijuana use no Julia Ventimiglia CALL BOX WIRER drug use no Julia Ventimig heidi CALL BOX WIRER alcohol use no Julia Ventimig heidi CALL BOX WIRER smoking status Never smoker Julia Ventim iglia CALL BOX WIRER FUNCTIONAL STATUS Date Observation Value Provider HRA, [...] Plan continue current therapy Julia Giles CALL BOX WIRER INSURANCE PROVIDERS Payer name Policy type / Coverage type Becky red republican [place] Medicare [id number] [facility] [id number] ADVANCE DIRECTIVES Name Date DISCUSSED - NO [...] stnet open nod dom righ 90% Karl Wmyan MD Cardiology:5.9 Karl Wyman MD Cardiology: 2 [...] a .pacemaker Orders: 9203 MOD 45-59 min ([id number]) Meet Naranjo MD Electrophysiology:wo re holter in [...] Tablet (Valsartan) Metformin 1,000 Mg Tablet (Metformin) [facility] Cardiology:untreated with AHI of 8=48 and oxygen saturation dropping to 80% w ill refer to pulmonary for further management [facility] Cardiology:with EF o f 60% [...] (Isosorbide mononitrate) Valsartan 160 Mg Tablet (Valsartan) [facility] Cardiology: T he following medications were removed from the medication list: Furosemide 20 Mg Tablet (Furosemide) Sotalol 80 Mg Tablet (Sotalol) His updated medication list for this problem includes: Sotalol 80 Mg Tablet (Sotalol) Torsemide 20 Mg Tablet (Torsemide) Valsartan 160 Mg Tablet (Valsartan) Julia Giles [facility] Cardiology:Hx of CAB G and stents [...] Release 24 Hr (Isosorbide mononitrate) Julia Giles [facility] Cardiology:currently in afib r ate is [...] obtain his recent tele monitor from previous milk pasteurizer T he following medications were removed from the medication list: Sotalol 80 Mg Tablet (Sotalol) His updated medication list for this problem includes: Dipyridamole 75 Mg Tablet (Dipyridamole) ..... 1 tablet by mouth four times a day Sotalol 80 Mg Tablet (Sotalol) Nitroglycerin 0.4 Mg Tablet, Sublingual (Nitroglycerin) Isosorbide Mononitrate 30 Mg Tablet Extended Release 24 Hr (Isosorbide mononitrate) Julia Giles [facility] Date Name PROTHROMBIN TIME WIT H [...] W/EGFR Carotid Duplex Bilat eral DLCO - 54915 FRC - 05158 FVC - 34154 CXR- PA/Lat FOLATE, SERUM VITAMIN B12 IRON [...] d Protjonn Naranjo MD comp leted Protjonn Naarnjo MD comp leted Gamal Justin MD completed Protime Rhina Escudero MD compl eted Gamal Wyman MD complete d ARTUR Naranjo MD comp leted Gamal Maldonado MD completed Gamal Herbert MD complete d Gamal Wyman MD complete d Spirometry Karl Wyman MD complete d FVC / MVV - 49028 Karl Wyman MD c ompleted SpO2 w/o 6min walk/titration Karl Wyman MD completed SVC - 38227 Karl Wyman MD complet ed DLCO - 16545 Karl Wyman MD comple venus Gamal Pacheco [...]
--- OUTSIDE RECORDS SUMMARY | 2025-02-03 08:51 | XMS_ITS | Referral Summary ---
Author Organization [facility] at the [facility] Office Center Address [address] [place] [address] Care Team Providers Care Boot And Saddle Repair Person Name Role Phone Bennie Nova MD Primary [...] on file Legal Sex Male 12:10 AM CHILD PROTECTIVE SERVICES SPECIALIST Gender Identity Not on file Sexual Orientation Not on file Last Filed Vital Signs Vital Sign Reading Time Taken Comments Blood Pressure 128/84 10/02/2024 12:46 PM CHILD PROTECTIVE SERVICES SPECIALIST Pulse 88 10/02/2024 12:46 PM CHILD PROTECTIVE SERVICES SPECIALIST Temperature 36.7 C (98.1 F) 08/17/2024 9:05 AM CDT Respiratory Rate 16 10/02/2024 12:46 PM CHILD PROTECTIVE SERVICES SPECIALIST Oxygen Saturation 98% 10/02/2024 12:46 PM CHILD PROTECTIVE SERVICES SPECIALIST Inhaled Oxygen Concentration - - Weight 113.4 kg (250 lb) 10/02/2024 12:46 PM CHILD PROTECTIVE SERVICES SPECIALIST Height 177.8 cm (5' 10 ) 10/02/2024 12:46 PM CHILD PROTECTIVE SERVICES SPECIALIST Body Mass Index 35.87 10/02/2024 12:46 PM CHILD PROTECTIVE SERVICES SPECIALIST Plan of Treatment Not on file Medical Devices Implanted Type Area Cigarette Roller Device Identifier Shelf Expiration Date Model / [...] Region Laterality Modality Other Narrative Procedure Note Merly Spears MD - 08/17/2024 8:17 AM CDT [facility] GI ENDOSCOPY Patient Name: Reggie Nevarez Procedure Date: 08/17/2024 8:17 AM Date of : 1950 Admit Type: Outpatient Age: 74 Gender: Male Attending MD: Meryl Spears M.D. Room: [facility] ENDOSCOPY ROOM 05 Note Status: Finalized [...] polypectomy, one hemostaticclip was successfully placed. Clip counter help: [employer]. Therewas no bleeding at the end of [...] Resected and retrieved. Clip was placed. Clip counter help: [employer]. - Diverticulosis in the left colon. Biopsied. - The distal rectum and anal verge are normal on retroflexion view. Recommendation: - Resume previous diet. - Continue present medications. - Await pathology results. Meryl Spears M.D. Meryl Spears M.D. 08/17/2024 9:11:17 AM . Number of Addenda: 0 Note Initiated On: 08/17/2024 8:17 AM Recognized by the [place] [employer] Gastrointestinal Endoscopy for promoting quality [...] BLOOD ORDERABLES Final Result PHILIPPE [facility] [place] [address] * (ABNORMAL) Serum lipid panel (04/02/2016 3:08 [...] Recently Relevant to Health Maintenance Insurance MEDICARE [facility] MEDICARE BLUE CROSS MEDICARE SUPPLEMENT MEDICARE [facility] BLUE CROSS MEDICARE SUPPLEMENT Care Teams Boot And Saddle Repair Person Relationship Specialty Start Date End Date Bennie Nova MD [address] [place] [address] PCP - General Cardiovascular Disease 06/02/21
--- OUTSIDE RECORDS SUMMARY | 2025-02-03 08:51 | XMS_ITS | Clinical Summary ---
Author Organization [facility] Address [address] [facility] [place] [address] Care Team Providers Care Fire Sprinkler Fitter Name Role Phone Bennie Nova MD Primary Care Provider Alison jeronimo Source Comments [facility],non-owned Affiliates and Associated Physician Practices is amultiple site organization consisting of ambulatory clinics and hospital sitesin [place], [place], [place] and [place]. This disclosure is being madepursuant to the Care Everywhere program and may not contain all information available regarding this patient. Last updated 18.[facility] [employer] Allergies No known active allergies Medications * [...] Comments Blood Pressure 182/85 10/09/2012 3:10 PM BIBLE WORKER Pulse 70 10/09/2012 3:10 PM BIBLE WORKER Temperature 36.7 C (98.1 F) 12/29/2010 11:35 AM BIBLE WORKER Respiratory Rate 16 12/29/2010 11:35 AM BIBLE WORKER Oxygen Saturation - - Inhaled Oxygen Concentration - - Weight 173.3 kg (382 lb) 10/09/2012 3:10 PM BIBLE WORKER Height 177.8 cm (5' 10 ) 10/09/2012 3:10 PM BIBLE WORKER Body Mass Index 54.81 10/09/2012 3:10 PM BIBLE WORKER Plan of Treatment Health Maintenance Due Date [...] age to complete this topic Care Teams Fire Sprinkler Fitter Relationship Specialty Start Date End Date Bennie Nova MD PCP - General Internal Medicine 10/10/12
--- OUTSIDE RECORDS SUMMARY | 2025-02-03 08:51 | XMS_ITS | Continuity of Care Document ---
Author Organization [facility] Address [address] [place] [address] [place] [address] Phone Care Team Providers Care Wet End Operator Name Role Phone Hoa Gonzalez Unavailable Unavailable Procedures Procedure Date Eye Exam & Treatment Refraction Eye Exam & Treatment Eye Exam & Treatment Refraction Advance Directives Directive Yes / No Effective Date File Name No Information Encounters Encounter Description Practice Location Reason(s) For Visit Diagnoses Date Provider Providers Copied on Encounter [facility], [address] [place] [address] [address], [place], [place], [id number], tel:[phone] [facility] No Information Jan- 4-201 0 Lisa Solitario [address], [place], [place], [facility], [place]. tel:[phone] [facility], [address] [place] [address] [address], [place], [place], [id number], [place] tel:[phone] [facility] No Information 9-200 9 Lisa Solitario [address], [place], [place], [facility], [place]. tel:[phone] [facility], [address] [place] [address] [address], [place], [place], [id number], tel:[phone] [facility] No Information 7200 7 Lisa Camara. [address], [place], [address], [place]. tel:[phone] Family History Family Member Type Diagnosis Age At Onset No Information Payers Payer name Insurance type Covered alliance party ID Authorheidy guerrero(s) [facility] Out Of State [id number] Social History Type Description Quantity Date Captured [...]
--- OUTSIDE RECORDS SUMMARY | 2025-02-03 08:51 | XMS_ITS | Clinical Summary ---
Author Organization [facility] Address [address] [place] [address] Care Team Providers Care Optical Laboratory Technician Name Role Phone Tiana Patterson MD [...] Department Care Team Description 01/30/2025 Orders Only [facility] On[facility]ematology [facility] [address] [place] [phone] Tommy Ruiz MD 12/25/2024 External Device Data [...] on file Legal Sex Male 3:06 PM CURING OVEN TENDER Gender Identity Not on file Sexual Orientation Not on file Last Filed Vital Signs Vital Sign Reading Time Taken Comments Blood Pressure 131/79 11/01/2024 11:29 AM CURING OVEN TENDER Pulse 84 11/01/2024 11:29 AM CURING OVEN TENDER Temperature 36.6 C (97.8 F) 11/01/2024 11:29 AM CURING OVEN TENDER Respiratory Rate 16 11/01/2024 11:29 AM CURING OVEN TENDER Oxygen Saturation 96% 11/01/2024 11:29 AM CURING OVEN TENDER Inhaled Oxygen Concentration - - Weight 112.5 kg (248 lb) 11/01/2024 11:29 AM CURING OVEN TENDER Height 177.8 cm (5' 10 ) 11/01/2024 11:29 AM CURING OVEN TENDER Body Mass Index 35.58 11/01/2024 11:29 AM CURING OVEN TENDER Plan of Treatment Upcoming Encounters Date Type Department Care Team (Late st Contact Info) Description 02/08/2025 11:30 AM CDT Office Visit [facility] Oncology and Hematology - Only [address] [facility] [address] [place] [address] Tommy Ruiz MD [address] [facility] [address] [place] [address] Health Maintenance Due Date Last [...] Result from Last 3 Months Insurance [address] [place] [address] MEDICARE PART A AND B BCBS SUPP Care Teams Optical Laboratory Technician Relationship Specialty Start Date End Date Tiana Patterson MD [address] [place] [phone] PCP - General Internal Medicine 11/02/24
--- OUTSIDE RECORDS SUMMARY | 2025-02-03 08:51 | XMS_ITS | Clinical Summary ---
Author Organization [facility] Address [address] [place], [place] [id number] Care Team Providers Care Holistic Pulser Name Role Phone Unavailable Primary Care Provider [...] age to complete this topic Insurance MEDICARE [facility]
--- OUTSIDE RECORDS SUMMARY | 2025-02-03 08:52 | XMS_ITS | Encounter Summary ---
Author Organization [facility] Address [address] [place] [address] Care Team Providers Care Workforce Specialist Name Role Phone Bennie Nova MD Primary Care Provider Alison ilfrancisco javier Encounter Details Date Type Department Care Team (Late st Contact Info) Description 11/21/2019 Lab Requisition [facility] [address] [facility], [place] [address] Hali Fletcher DO [address] [facility] 3 [place] [address] Social History Tobacco Use Types Packs/Day Years [...] Comments DERMATOPATHOLOGY Routine 11/20/2019 12:0 0 AM AUTOMATIC SPINNING LATHE OPERATOR documented in this encounter Results * DERMATOPATHOLOGY (11/20/2019 12:00 AM AUTOMATIC SPINNING LATHE OPERATOR) Case Report Dermatopathology Report Case: [id number] Authorizing Provider: Hali Fletcher DO Collected: 11/20/2019 12:00 AM Ordering Location: [facility] DermPath Lab Received: 11/21/2019 01:31 PM Pathologist: Warner Garcia MD Specimen: Skin, left anabaptism 0 7:23 PM [facility] DERMATOPATH[facility]Y [facility]ORATORY Final Diagnosis Specimen A. SKIN, left anabaptism: SQUAMOUS CELL CARCINOMA, WELL DIFFERENTIATED (C44.329) 0 7:23 PM AUTOMATIC SPINNING LATHE OPERATOR DERMATOPATHOLOGY LABORATORY Clinical History R/O NMSC, non-healing. 0 7:23 PM AUTOMATIC SPINNING LATHE OPERATOR DERMATOPATHOLOGY LABORATORY Gross Description Specimen A: Received is one formalin filled container labeled with the patient's name and designated left anabaptism. The specimen consists of a shave measuring [id number]. Jar 0. 0 7:23 PM [facility] DERMATOPATH[facility]Y [facility]ORATORY Microscopic Description Specimen A. SKIN, left anabaptism: Arising in the epidermis and extending into the dermis there are irregularly shaped aggregates of keratinocytes showing evidence of premature cornification. 0 7:23 PM AUTOMATIC SPINNING LATHE OPERATOR DERMATOPATHOLOGY LABORATORY Disclaimer An external and internal positive and negative controls are appropriate for the histochemical, immunohistochemical and immunofluorescence stain(s) in this case (if any), except where stated explicitly. The performance characteristics of the stain(s) cited in this report were developed and its performance characteristic determined by the Dermatopathology Laboratory at [facility], directed by Dr. Luba Garcia. These tests need not be, and therefore are not, approved by the [place] Food and Drug Administration. The tests are used for clinical purposes. Billing Codes Specimen Charges Stain Charges 03371 1 0 7:23 PM AUTOMATIC SPINNING LATHE OPERATOR DERMATOPATHOLOGY LABORATORY Embedded Images 0 7:23 PM AUTOMATIC SPINNING LATHE OPERATOR DERMATOPATHOLOGY LABORATORY Pathology/Cytolog y TISSUE SPECIMEN FROM SKIN / Unknown 11/20/2019 11/21/2019 1:31 PM AUTOMATIC SPINNING LATHE OPERATOR Hali Fletcher DO LAB - PATHOLOGY/C YTOLOGY ORDERABLES DERMATOPATHOLOGY LABORATORY [facility] - Department of Dermatology [address] [place] [address], [address] [phone] documented in this encounter Visit Diagnoses Not on filedocumented in this encounter Care Teams Workforce Specialist Relationship Specialty Start Date End Date Bennie Nova MD PCP - General Internal Medicine 10/10/12 documented as of this encounter
--- OUTSIDE RECORDS SUMMARY | 2025-02-03 08:52 | XMS_ITS ---
Author Organization [facility] Address [address] [facility] [address] [place] [address] Care Team Providers Care Liaison Officer Name Role Phone Nhan Gigi Unavailable [phone] SOCIAL HISTORY Sex Assigned At : Social History Observation Description Sex Assigned At Male PROBLEMS Problem Type ICD Code Onset Dates Problem Status W/U Status Risk SNOMED Code Notes Problem Chronic kidney disease, stage 2 (mild) (N18.2) Active confirmed Chronic kidney disease stage 2 (886280654) Encounters Encounter Location Date Provider Diagnosis [place] [facility] [address] [facility] [address] [place] [address] 01/02/2025 Gigi Justin Chronic kidney disea se, [...] Name:Gigi Nhan , 02/13/2025 04:15:00 PM, [address] [facility], [place], [place], [facility], Progress Notes * MANNIE CABELLODOB:1950 ( 75 yo F)Acc No.[id number]:01/02/2025 Progress Notes Patient: MANNIE CABELLO Provider: MD DENY, F.A.C.P, F.A.S.N. :1950 Age:74 Y Sex:Female Date:01/02/2025 Address:[address] [place] [address], [place] [address] Subjective: * Chief Complaints: * * Medical [...] Treatment: * Billing Information: * Visit Code: 51681 Office Visit, Est Pt., Level 4. * Procedure Codes: * Sign off status: Pending * Provider: MD DENY, F.A.C.P, F.A.S.N. Date: 01/02/2025
--- NOTE | 2025-02-03 09:15 | ED_ITS ---
HPI - Extremity Injury (Lower) General Chief Complaint: Extremity Injury, Lower Stated Complaint: knot to left hip area Time Seen by Provider: 02/03/25 08:46 Source: patient and family Mode of arrival: ambulatory Limitations: no limitations History of Present Illness HPI Narrative: Patient presents with pain at left hip where he feels like he has a knot. He denies any trauma/injury/falls. Pain radiates down his leg. He discovered it yesterday when getting up while at a restaurant eating breakfast. He is on warfarin for a mechanical valve, last dose last night. He has had to use a walker but not normally (occasionally a cane). Tried a heating pad and cold ice packs as well as Biofreeze, voltaran. 2 knee surgeries on the left side but no prior hip injury/surgery. Related Data Home Medications ?Medication ?Instructions ?Recorded ?Confirmed ?Last Taken ?Type finasteride 5 mg tablet 5 mg PO DAILY 08/12/23 11/09/24 08/11/23 History warfarin 5 mg tablet See Rx Instructions .Route .COMPLEX 08/12/23 11/09/24 08/11/23 History triamcinolone acetonide 0.1 % 1 applic topical BID 08/26/23 11/09/24 Unknown History topical cream atorvastatin 40 mg tablet 40 mg PO DAILY 05/07/24 11/09/24 Unknown History carvedilol 3.125 mg tablet 3.125 mg PO Q12H 05/07/24 11/09/24 Unknown History cholestyramine (with sugar) 4 gram ea PO 05/07/24 11/09/24 Unknown History powder for susp in a packet dipyridamole 75 mg tablet 75 mg PO Q8H 05/07/24 11/09/24 Unknown History empagliflozin 10 mg tablet 10 mg PO DAILY 05/07/24 11/09/24 Unknown History (Jardiance) ferrous sulfate 325 mg (65 mg 325 mg PO DAILY 05/07/24 11/09/24 Unknown History iron) tablet,delayed release finerenone 20 mg tablet (Kerendia) 20 mg PO DAILY 05/07/24 11/09/24 Unknown History gabapentin 300 mg capsule 300 mg PO DAILY 05/07/24 11/09/24 Unknown History mecobalamin (vitamin B12) 1,000 1,000 mcg PO DAILY 05/07/24 11/09/24 Unknown History mcg chewable tablet sacubitril 97 mg-valsartan 103 mg 1 tablet PO BID 05/07/24 11/09/24 Unknown History tablet (Entresto) semaglutide 2 mg/dose (8 mg/3 mL) mg subcut 08/08/24 11/09/24 Unknown History subcutaneous pen injector (Ozempic) warfarin 7.5 mg tablet mg PO 08/08/24 11/09/24 Unknown History Allergies Allergy/AdvReac Type Severity Reaction Status Date / Time No Known Allergies Allergy Verified 02/03/25 07:20 [facility] Past Medical History Medical History History of heart attack Pacemaker PAF (paroxysmal atrial fibrillation) Morbid obesity due to excess calories Anemia Cellulitis Heart disease Heart attack CHF (congestive heart failure) CAD (coronary artery disease) Skin cancer Allergies Dyslipidemia HTN (hypertension) Arthritis Anxiety GERD (gastroesophageal reflux disease) Diabetes Surgical History Surgical History History of knee surgery trauma to both knees History of neck surgery History of bariatric surgery History of left knee replacement History of open heart surgery 1994 Open heart Mechanical Valve 2004 Family History Family History Father Diabetes mellitus Heart disease Hypertension Mother Heart disease Social History Social History (Updated 11/09/24 @ 07:41 by Amaya Beth [facility]) Smoking status: Never smoker Alcohol intake: never Substance use: never Do You Feel Safe in your Home?: Yes Lack of Transportation: No Lack of Food: Never True Current Housing: I Have Housing Concerned About Future Housing: No Difficulty Paying Gas/Electric Bills: No Difficulty Paying for Meds: No Currently Unemployed: No Education: Bachelor's Degree Difficulty w/ Childcare or Family Care: No Spiritual care concerns: No Exam 2 Narrative: GENERAL: Well-appearing, well-nourished, and in no acute distress. HEAD: Normocephalic, atraumatic. EYES: Non injected, non icteric ENT: Nares clear, no rhinorrhea or epistaxis. NECK: Supple. CHEST: Speaking in full sentences. No respiratory distress. HEART: Regular rate and rhythm. . ABDOMEN: Soft, nondistended. EXTREMITIES: Normal range of motion. No lower extremity edema. Pelvis stable to compression. Patient's hip joint is palpable but without bony deformity/abnormality. No leg shortening/rotation. SKIN: Warm, dry, no rash. No erythena/lesions/ecchymosis over left hip. NEURO: No focal deficits. Alert and oriented x3. PSYCH: Normal mood and affect. Course Vital Signs Vital signs: Vital Signs Temperature 98.1 F 02/03/25 07:17 Pulse Rate 84 02/03/25 07:17 Respiratory Rate 16 02/03/25 07:17 Blood Pressure 121/79 02/03/25 07:17 Pulse Oximetry 98 02/03/25 07:17 Oxygen Delivery Room Air 02/03/25 07:17 Temperature 98.1 F 02/03/25 07:17 Pulse Rate 84 02/03/25 07:17 Respiratory Rate 16 02/03/25 07:17 Blood Pressure 127/93 H 02/03/25 10:31 Pulse Oximetry 97 02/03/25 10:00 Oxygen Delivery Room Air 02/03/25 07:17 MDM - Extremity Injury (Lower) MDM Narrative Medical decision making narrative: Patient presents with left hip pain. No trauma/injury. In the emergency department she is afebrile with vital signs that are within normal limits. Patient's medications are reviewed and he is on warfarin 7.5 mg on Tuesday and 5 mg on the rest of the week. He does report he takes this in the evening in his last dose was yesterday, 02/02/2025. He also takes hydrocodone - acetaminophen 7.5-325 (once a day or twice if needed) and he notes that he took this at 4:00 a.m.. He is having pain again and so another dose of this is ordered. INR is elevated, 4.7, above goal for mechanical valve (he states 2.5-3.5). Plain film imaging is negative. Will obtain CT imaging given concern for occult labral tear but patient also has a possible occult seroma or hematoma given this supratherapeutic anticoagulation. Patient is able to ambulate to the door with the nurse. he experiences pain with this but is able to do so. No evidence of bleeding so recommendation for supra- therapeutic anticoagulation is to hold warfarin, repeat INR, and resume when appropriate. Unable to place outpatient order for this as unable to Cc patient's PCP. He has an upcoming appointment to establish with quantitative consultant Dr Momin on Tuesday. I recommend he hold tonya's warfarin dose and call cardiology office in the morning to ask if he should get an outpatient INR test tomorrow in anticipation of appointment on Tuesday or wait until Tuesday to do so. and verify understanding and are amenable to this plan. Prescribed acetaminophen and lidocaine patches. Discharged in stable condition. Differential Diagnosis Differential diagnosis: Likely other ( hip impingement, bursitis , fracture, dislocation, hematoma, seroma; labral tear) Lab Data Attestation: I reviewed the patient's lab results. Lab results narrative: no leukocytosis, anemia, thrombocytopenia. Chemistry normal. 02/03/25 09:54 02/03/25 09:54 Labs: Lab Results 02/03/25 Range/Units 09:54 WBC 7.8 (4.5-10.0) K/mm3 RBC 4.71 (4.6-6.20) M/mm3 Hgb 14.1 (14.0-18.0) g/dL Hct 43.1 (42.0-52.0) % MCV 91.5 (80-100) fl MCH 29.9 (26-34) pg MCHC 32.7 (32-36) g/dl RDW 14.4 (11.5-14.5) % Plt Count 151 (150-375) k/mm3 MPV 9.7 (7.4-10.4) fl Immature Gran % (Auto) 0.3 (0-0.5) % Neut % (Auto) 78.2 H (45.5-73.1) % Lymph % (Auto) 12.0 L (18.3-44.2) % [place] % (Auto) 9.1 H (2.6-8.5) % Eos % (Auto) 0.1 (0-4.4) % Baso % (Auto) 0.3 (0.2-1.2) % Lymph # (Auto) 0.94 (0.9-3.2) K/mm3 [place] # (Auto) 0.7 H (0.1-0.6) K/mm3 Eos # (Auto) 0.0 (0-0.3) K/mm3 Baso # (Auto) 0.0 (0.0-0.1) K/mm3 Abs Immat Gran (auto) 0.02 (0.00-0.031) K/mm3 Absolute Neuts (auto) 6.1 (1.3-6.7) K/mm3 Absolute Nucleated RBC 0.000 (0.0-0.012) K/mm3 Nucleated RBC % 0.0 (0.0-0.2) % PT 45.2 H (11.1-14.7) Seconds INR 4.7 APTT 47.0 H (22.3-36.8) Seconds Sodium 139 (137-145) mmol/L Potassium 4.3 (3.4-5.0) mmol/L Chloride 106 (98-107) mmol/L Carbon Dioxide 25 (22-30) mmol/L Anion Gap 8 (4-12) mmol/L BUN 14 (9-20) mg/dL Creatinine 0.63 L (0.7-1.3) mg/dL Estim Creat Clear Calc 105 ml/min Estimated GFR > 60 (59 - ) Glucose 94 (65-110) mg/dL Calcium 8.8 (8.4-10.2) mg/dL Imaging Data Radiologist's impression: IMPRESSION: Degenerative disease without acute fracture or dislocation IMPRESSION: Degenerative disease, without acute fracture. Discharge Plan Discharge Clinical Impression: Degenerative joint disease of left hip, Elevated INR, Acute pain of left hip Patient Disposition: Home, Self-Care Condition: Stable Instructions: Antibiotic Form, Elevated INR (ED), Hip Pain (ED), Lower Back Exercises (ED) Additional Instructions: INR was 4.7. * Recommend Hold Warfarin * Contact your primary care physician to request a repeat lab draw check of your INR if you don't currently have one scheduled. * Recommend Resume Warfarin at lower dose once INR therapeutic. No evidence of fracture or dislocation or abscess/hematoma/seroma. You may have a labral tear or other injury that would require additional imaging/physical therapy, etc. Follow up with your primary care physician. In the interim, you can continue to use the pain medicine you are prescribed and add additional acetaminophen (though each hydrocodone tablet also contains 325mg; take that into account so you don't accidentally overdose); maximum safe dosing of Tylenol/acetaminophen is 4000mg/day. Patient Language: Yoruba Prescriptions: New acetaminophen 500 mg capsule See Rx Instructions .ROUTE .COMPLEX PRN (Reason: pain) Qty: 30 0RF Rx Instructions: Take 1 or 2 (500mg or 1000mg) every 6 hours ; not to exceed 4000mg total per day lidocaine 4 % adhesive patch,medicated 1 patch topical DAILY PRN (Reason: pain) Qty: 15 0RF No Action albuterol sulfate 90 mcg/actuation HFA aerosol inhaler 1 puff inhalation Q4H PRN (Reason: shortness of breath or wheezing) Qty: 8.5 1RF Kerendia 20 mg tablet 20 mg PO DAILY dipyridamole 75 mg tablet 75 mg PO Q8H Rx Instructions: administer 1 hour before or 2 hours after food or meals ferrous sulfate 325 mg (65 mg iron) tablet,delayed release (DR/EC) 325 mg PO DAILY mecobalamin (vitamin B12) 1,000 mcg tablet,chewable 1,000 mcg PO DAILY carvedilol 3.125 mg tablet 3.125 mg PO Q12H Rx Instructions: must administer with a meal/food Entresto 97-103 mg tablet 1 tablet PO BID atorvastatin 40 mg tablet 40 mg PO DAILY Jardiance 10 mg tablet 10 mg PO DAILY gabapentin 300 mg capsule 300 mg PO DAILY cholestyramine (with sugar) 4 gram powder in packet PO hydrocodone-acetaminophen 10-325 mg tablet 1 tablet PO Q8H PRN (Reason: pain) Qty: 60 0RF sildenafil [Viagra] 100 mg tablet 100 mg PO DAILY PRN (Reason: sexual activity) Qty: 30 1RF Rx Instructions: administer 30 minutes to 4 hours before activity triamcinolone acetonide 0.1 % cream 1 applic topical BID warfarin 7.5 mg tablet PO Ozempic 2 mg/dose (8 mg/3 mL) pen injector subcut finasteride 5 mg tablet 5 mg PO DAILY warfarin 5 mg tablet See Rx Instructions .ROUTE .COMPLEX Rx Instructions: Takes 5mg po on , Tue, , Tue, Sat, Sun. Takes 4mg po on Tuesday only. (DME) pen needle, diabetic [BD Ultra-Fine Mini Pen Needle] 31 gauge x 3/16 needle See Rx Instructions .ROUTE .COMPLEX Qty: 100 3RF Dose Instruction: USE DAILY WITH LEVEMIR Rx Instructions: USE DAILY WITH LEVEMIR nitroglycerin 0.4 mg tablet, sublingual 0.4 mg sublingual Q5M PRN (Reason: chest pain) Qty: 30 0RF Rx Instructions: do not exceed 3 doses per episode (DME) OneTouch Ultra Test Strip See Rx Instructions .Route Qty: 100 2RF Rx Instructions: Use to check BS BID albuterol sulfate 2.5 mg /3 mL (0.083 %) solution for nebulization 2.5 mg inhalation Q4-6H PRN (Reason: shortness of breath or wheezing) Qty: 75 0RF pantoprazole 40 mg tablet,delayed release (DR/EC) 40 mg PO QAM Qty: 90 0RF Rx Instructions: NEEDS APPOINTMENT FOR FURTHER REFILLS tamsulosin 0.4 mg capsule 0.4 mg PO DAILY Qty: 90 0RF Rx Instructions: NEEDS APPOINTMENT FOR FURTHER REFILLS Follow-up/Referrals: Leonardo,MD Tiana [Primary Care Provider] - Time of Disposition: 12:02
[2025-02-03] MEDS: HYDROcodone/acetaminophen (*CRX) 7.5-325 MG TABLET 1 TAB PO (09:45)
[2025-02-03 10:02] LABS: Basophils Percent Auto 0.3 % (0.2-1.2); Eosinophils Percent Auto 0.1 % (0-4.4); Hematocrit 43.1 % (42.0-52.0); Hemoglobin 14.1 g/dL (14.0-18.0); Immature Granulocyte Absolute 0.02 K/mm3 (0.00-0.031); Immature Granulocyte Percent A 0.3 % (0-0.5); Lymphocytes Absolute Auto 0.94 K/mm3 (0.9-3.2); Mean Corpuscular HGB Conc 32.7 g/dl (32-36); Mean Corpuscular Hemoglobin 29.9 pg (26-34); Mean Corpuscular Volume 91.5 fl (80-100); Mean Platelet Volume 9.7 fl (7.4-10.4); Monocytes Absolute Auto 0.7 K/mm3 (0.1-0.6); Monocytes Percent Auto 9.1 % (2.6-8.5); Neutrophils Absolute Auto 6.1 K/mm3 (1.3-6.7); Neutrophils Percent Auto 78.2 % (45.5-73.1); Platelet Count Result 151 k/mm3 (150-375); Red Blood Count 4.71 M/mm3 (4.6-6.20); Red Cell Distribution Width 14.4 % (11.5-14.5); White Blood Count 7.8 K/mm3 (4.5-10.0)
[2025-02-03 10:11] LABS: Anion Gap 8 mmol/L (4-12); Blood Urea Nitrogen 14 mg/dL (9-20); Calcium 8.8 mg/dL (8.4-10.2); Carbon Dioxide 25 mmol/L (22-30); Chloride 106 mmol/L (98-107); Estimated CRCL calculation 105 ml/min; Estimated Glomerular Filt Rate > 60; Glucose 94 mg/dL (65-110); Potassium 4.3 mmol/L (3.4-5.0); Sodium 139 mmol/L (137-145)
[2025-02-03 10:16] LABS: INR 4.7; Prothrombin Time 45.2 Seconds (11.1-14.7)
--- NOTE | 2025-02-03 11:57 | PC.NURSE ---
Ambulatory in room using walker. Tolerated well.
[2025-02-03] MEDS: ACETAMINOPHEN 325 MG TABLET 650 MG PO (12:10)
[2025-02-03] MEDS: LIDOCAINE 5% PATCH 1 PATCH TRANSDERM (12:10)
== END 2025-02-03 12:46 | disposition home or self-care (01) ==
PROVIDERS: Emergency Provider Student in an Organized Health Care Education/Training Program; PCP Internal Medicine
DX: M25.552 Pain in left hip (principal); M16.12 Unilateral primary osteoarthritis, left hip; R79.1 Abnormal coagulation profile; I25.2 Old myocardial infarction; I48.0 Paroxysmal atrial fibrillation; I50.9 Heart failure, unspecified; I25.10 Atherosclerotic heart disease of native coronary artery without angina pectoris; E78.5 Hyperlipidemia, unspecified; E11.9 Type 2 diabetes mellitus without complications; E66.01 Morbid (severe) obesity due to excess calories; Z68.35 Body mass index [BMI] 35.0-35.9, adult; K21.9 Gastro-esophageal reflux disease without esophagitis; M19.90 Unspecified osteoarthritis, unspecified site; Z95.0 Presence of cardiac pacemaker; Z96.652 Presence of left artificial knee joint; Z86.2 Personal history of diseases of the blood and blood-forming organs and certain disorders involving the immune mechanism; Z85.828 Personal history of other malignant neoplasm of skin; Z79.01 Long term (current) use of anticoagulants; Z79.84 Long term (current) use of oral hypoglycemic drugs; Z79.85 Long-term (current) use of injectable non-insulin antidiabetic drugs
CPT/HCPCS: 36415; 73502; 73700; 80048; 85025; 85610; 85730; 99284; A9270

== ENCOUNTER 2025-02-12 06:47 | Outpatient (CLI) | payer MEDICARE, SELFPAY ==
--- OUTSIDE RECORDS SUMMARY | 2025-02-12 06:56 | XMS_ITS | Encounter Summary ---
Author Organization [facility] Address [address] [place] [address] Care Team Providers Care Directional Survey Drafter Name Role Phone Bennie Nova MD Primary Care Provider Alison ilfrancisco javier Encounter Details Date Type Department Care Team (Late st Contact Info) Description 04/13/2024 Lab Requisition [facility] - DermPath Lab [address] [facility], [place] [address] Lou Clark PA-C [address] [place] [address] Neoplasm of uncertain behavior of [...] AM CDT) Case Report Dermatopathology Report Case: [id number] Authorizing Provider: Lou Clark, Collected: 04/13/2024 12:00 AM HELEN Ordering Location: [facility] - Received: 04/16/2024 11:01 AM DermPath [...] characteristic determined by the Dermatopathology Laboratory at [facility], directed by Dr. Luba Garcia. These tests need not be, and therefore are not, approved by the [place] Food and Drug Administration. The tests are used for clinical purposes. Billing Codes Specimen Charges Stain Charges 27801 28990 1 1 4 1:29 PM CDT DERMATOPATHOLOGY LABORATORY Embedded Images 1:29 PM CDT DERMATOPATHOLOGY LABORATORY Pathology/Cytology TISSUE SPECIMEN FROM SKIN / Unknown 04/13/2024 04/16/2024 11:01 AM CDT Miscellaneous samples (specimen) TISSUE SPECIMEN FROM SKIN / Unknown 04/13/2024 04/16/2024 11:01 AM CDT Lou Clark PA-C LAB - PATHOL OGY/CYTOLOGY ORDERABLES DERMATOPATHOLOGY LABORATORY [facility] - Department of Dermatology [facility] [address] [place] [address], [address] [phone] documented in this encounter Visit Diagnoses Diagnosis Neoplasm of uncertain behavior of skin documented in this encounter Care Teams Directional Survey Drafter Relationship Specialty Start Date End Date Bennie Nova MD PCP - General Internal Medicine 10/10/12 documented as of this encounter
--- OUTSIDE RECORDS SUMMARY | 2025-02-12 06:56 | XMS_ITS ---
Author Organization [facility] Address [address] [place] [address] [place] [address] Care Team Providers Care Turret Punch Press Operator Name Role Phone Gigi Justin Unavailable [phone] MEDICATIONS Medication SIG (Take, Route, Frequency, Duration) Notes Start Date End Date Status Ergocalciferol 1.25 MG (42310 UT) 1 capsule Orally Once a week for 90 day(s) 04/25/2024 09/29/2025 Active Calcitriol 0.25 MCG 1 capsule Orally Onc e a day for 90 day(s) 04/25/2024 09/29/2025 Active SOCIAL HISTORY Sex Assigned At : Social History Observation Description Sex Assigned At Male Encounters Encounter Location Date Provider Diagnosis [place] [facility] [address] [facility] [address] [place] [address] 01/02/2025 Gigi Justin PLAN OF TREATMENT Medication Medication Name Sig Start Date Stop Date Notes Ergocalciferol 1.25 MG (5000 0 UT) 1 capsule Orally Once a week for 90 day(s) 04/25/2024 09/29/2025 Calcitriol 0.25 MCG 1 capsule Orally Onc e a day for 90 day(s) 04/25/2024 09/29/2025 Next Appt Details Provider Name:Gigi Justin , 02/13/2025 04:15:00 PM, [address] [facility], [facility], [place], [address], Progress Notes * CABELLOMANNIEDOB:1950 ( 75 yo F)Acc No.[id number]:01/02/2025 Patient: MANNIE CABELLO :1950 Age:74 Y Sex:Female Address:[address] [place] [address] [address], [place] [address] * Refills Refill Ergocalciferol Capsule, 1.25 MG (93639 UT), Orally, 13, 1 capsule, Once a week, 90 day(s), Refills=2 Refill Calcitriol Capsule, 0.25 MCG, Orally, 90 Capsule, 1 capsule, Once a day, 90 day(s), Refills=2 * * Date:
--- OUTSIDE RECORDS SUMMARY | 2025-02-12 06:56 | XMS_ITS | Encounter Summary ---
Author Organization [facility] Healthcare Address [address] [place] [address] Care Team Providers Care Census Taker Name Role Phone Bennie Nova MD Primary Care Provider [phone] Reason for Referral * Cardiology (Routine) - Closed Specialty Diagnoses / Procedures Referred By Contac t Referred To Contact Procedures MCT Mobile Cardiac Telemetry Event Monitor Nereyda Hutchinson MD [address] [place] [address] Phone: tel: Referral ID Status Reason Start Date Expiration Date Visits Re quested Visits Authorized [id number] Closed 02/11/2025 03/13/2026 1 1 Encounter Details Date Type Department Care Team (Late st Contact Info) Description 02/11/2025 Orders Only [facility] Cardiology [address] [facility] [address] [place] [phone] Nereyda Hutchinson MD [address] [place] [address] Social History Tobacco Use Types Packs/Day Years [...] on file Legal Sex Male 12:10 AM EDITOR BOOK Gender Identity Not on file Sexual Orientation Not on file documented as of this encounter Plan of Treatment Not on file documented as of this encounter Procedures Procedure Name Priority Date/Time Associated Diagnosis Comments MCT - MOBILE CARDIAC TELEMETRY EVENT MONITOR Routine 07/22/2023 12:20 PM CDT documented in this encounter Results * MCT Mobile Cardiac Telemetry Event Monitor (07/22/2023 12:20 PM CDT) Anatomical Region Laterality Modality Other us Historical Provider [facility] SUJEY Drew Result - Final documented in this encounter Visit Diagnoses Not on filedocumented in this encounter Care Teams Census Taker Relationship Specialty Start Date End Date Bennie Nova MD [address] [place] [address] PCP - General Cardiovascular Disease 06/02/21 documented as of this encounter
--- OUTSIDE RECORDS SUMMARY | 2025-02-12 06:56 | XMS_ITS | Clinical Summary ---
Author Organization [facility] Address [address] [place] [address] Care Team Providers Care Fundraising Officer Name Role Phone Bennie Nova MD Primary Care Provider Alison jeronimo Source Comments [facility],non-owned Affiliates and Associated Physician Practices is amultiple site organization consisting of ambulatory clinics and hospital sitesin [place], [place], [place] and [place]. This disclosure is being madepursuant to the Care Everywhere program and may not contain all information available regarding this patient. Last updated 18.[facility] [employer] Allergies No known active allergies Medications * [...] Comments Blood Pressure 182/85 10/09/2012 3:10 PM CASKET UPHOLSTERER Pulse 70 10/09/2012 3:10 PM CASKET UPHOLSTERER Temperature 36.7 C (98.1 F) 12/29/2010 11:35 AM CASKET UPHOLSTERER Respiratory Rate 16 12/29/2010 11:35 AM CASKET UPHOLSTERER Oxygen Saturation - - Inhaled Oxygen Concentration - - Weight 173.3 kg (382 lb) 10/09/2012 3:10 PM CASKET UPHOLSTERER Height 177.8 cm (5' 10 ) 10/09/2012 3:10 PM CASKET UPHOLSTERER Body Mass Index 54.81 10/09/2012 3:10 PM CASKET UPHOLSTERER Plan of Treatment Health Maintenance Due Date [...] 01/30/2000 ZOSTER VACCINE (1 of 2) 01/30/2000 COVID-19 VACCINE (2023-2 5 season) 2024 DEPRESSION SCREENING 11/07/2024 Respiratory Syncytial Virus (RSV) Vaccine Pt: or over 60 yrs (1 - 1-dose 75+ series) 2025 INFLUENZA VACCINE (Season Ended) 2025 HEPATITIS B VACCINE Aged Out No longe [...] age to complete this topic Care Teams Fundraising Officer Relationship Specialty Start Date End Date Bennie Nova MD PCP - General Internal Medicine 10/10/12
--- OUTSIDE RECORDS SUMMARY | 2025-02-12 06:56 | XMS_ITS | CONTINUITY OF CARE DOCUMENT ---
Author Name brant guo Address Unknown Organization [facility] Address [address] [facility] [address] [place] [address] Phone [phone] Care Team Providers Care Inventory Accountant Name Role Phone Karl Wyman MD Unavailable [...] slavere Diabetes mellitus, type 2 active Karl barfiedl MD neg egfr Systolic heart failure, chronic active Karl Wyman MD lowest 35 Microalbuminuria active Karl Wyman MD ne g egfr o n x 3 rx Pulmonary hypertension completed 1 - Karl Wyman MD Diarrhea active Kalr Wyman MD IRON DEFICIENCY active Karl Wyman [...] In-person encounter Office Visit Karl Wyman MD [facility] MicroalbuminuriaAdenomatous colonic polyp - In-person encounter Office Visit Karl Wyman MD [facility] - In-person encounter Office Visit Karl Wyman MD [facility] - In-person encounter Office Visit Kvng Jenkins MD [facility] Mitral regurgitation, severe - In-person encounter Office Visit Karl Wyman MD [facility] CAD s/p CABG;carotid plaueSystolic heart failure, chronic - In-person encounter Office Visit Karl Wyman MD [facility] CAD s/p CABG;carotid plauePulmonary hypertensionS/P Dual chamb PCM - Biotronik ( MRI Safe) - In-person encounter Office Visit Meet Naranjo MD [facility] - In-person encounter Office Visit Karl Wyman MD [facility] CAD s/p CABG;carotid plaueOSA, adult;cpap in tolDiabetes mellitus, type 2Systolic heart failure, chronicScreeningPulsatile tinnitus, bilateralBradycardia, severe - In-person encounter Office Visit Meet Naranjo MD [facility] - In-person encounter Office Visit Meet Naranjo MD [facility] - In-person encounter Office Visit Meet Naranjo MD [facility] ScreeningPVCsSick sinus syndrome - In-person encounter Office Visit Karl Wyman MD [facility] mechanical aortic valve replacementAtrial fib;NML TSHMorbid obesitySystolic heart failure, chronicDiarrheaIRON DEFICIENCYFAMILY HISTORY OF HEART DISEASE - In-person encounter Office Visit Lincoln Maldonado MD [facility] - In-person encounter Office Visit Karl Wyman MD [facility] CAD s/p CABG;carotid plauemechanical aortic valve replacementHypertensionHyperlipi demia;NEG CRP and lpaOSA, adult;cpap in tolAtrial fib;NML TSHMorbid obesityDiabetes mellitus, type 2Systolic heart failure, chronic VITAL SIGNS Date Observation Value Provider Body Mass Index (Ratio) 35.41 kg/m2 Ronda Wyman MD blood pressure, diastolic 79 mm[Hg] [facility] [place] blood pressure, systolic 131 mm[Hg] Gissellemanny bailey [place] oxygen saturation, oximetry 99 % [facility] pulse rate 85 /min [facility] blood pressure, cuff size regular [facility] weight E&M 246.8 [lb_av] [facility] height E&M 70 [in_i] [facility] Body Mass Index (Ratio) 34.43 kg/m2 Ronda [...] Isa Ruiz blood pressure, cuff size regular [facility] weight E&M 242.6 [lb_av] Isa Waller [...] height E&M 70 [in_i] Brenda Gruenenfe [facility] Body Mass Index (Ratio) 34.86 kg/m2 Ronda [...] pulse rate 70 /min Brenda Tomas [facility] weight E&M 243 [lb_av] Brenda Tomas [facility] height E&M 70 [in_i] Brenda Tomas [facility] Body Mass Index (Ratio) 35.01 kg/m2 Ronda Wyman MD weight E&M 244 [lb_av] [facility] blood pressure, cuff size regular Tr lisette Null blood pressure, diastolic 92 mm[Hg] lisette Null blood pressure, systolic 157 mm[Hg] [facility] oxygen saturation, oximetry 97 % [facility] respiratory rate E&M 18 /min [facility] pulse rate 67 /min [facility] Body Mass Index (Ratio) 34.86 kg/m2 Estiven Naranjo MD oxygen saturation, oximetry 97 % Brenda Vargas respiratory rate E&M 12 /min Brenda potter pulse rate 66 /min Brenda Marin [facility] weight E&M 243 [lb_av] Brenda Marin [facility] height E&M 70 [in_i] Brenda Tomas Body [...] blood pressure, systolic 172 mm[Hg] Spencer ri [facility] oxygen saturation, oximetry 98 % [facility] respiratory rate E&M 12 /min [facility] pulse rate 90 /min [...] Ronda Wyman MD height E&M 70 [in_i] [facility] blood pressure, cuff size regular [facility] blood pressure, diastolic 77 mm[Hg] [facility] blood pressure, systolic 148 mm[Hg] [facility] pulse rate 92 /min [facility] oxygen saturation, oximetry 99 % [facility] respiratory rate E&M 15 /min [facility] iller weight E&M 244 [lb_av] [facility] ALLERGIES Allergy Name Onset Date [...] nitroglycerin 0.4 mg tablet, sublingual active Karl Wymna MD triamcinolone aceton-0.9% NaCl completed - Karl [...] pantoprazole 40 mg tablet,delayed release (DR/EC) active [facility] alprazolam 1 mg tablet completed - Karl Wyman MD sotalol 80 mg tablet completed - [facility] STUDIO PRODUCER torsemide 20 mg tablet completed one tab as needed - Karl Wyman MD aspirin 81 mg capsule completed - [facility] hydrocodone-aceta minophen 10-300 mg tablet completed - Karl Wyman MD sildenafil 100 mg tablet completed - Karl Wyman MD albuterol sulfate 90 mcg/actuation HFA aerosol inhaler active Rose Mary Vasquez omega 3 completed - [facility] STUDIO PRODUCER furosemide 20 mg tablet completed - [facility] rosuvastatin 10 mg tablet completed - Chay [...] personal history of marijuana use no Karl Wmyan MD drug use no Karl Serota M [...] history of marijuana use no Julia Ventimiglia STUDIO PRODUCER drug use no Julia Ventimig heidi STUDIO PRODUCER alcohol use no Julia Ventimig heidi STUDIO PRODUCER smoking status Never smoker Julia Ventim iglia STUDIO PRODUCER FUNCTIONAL STATUS Date Observation Value Provider HRA, [...] Management Plan continue current therapy Julia Giles STUDIO PRODUCER INSURANCE PROVIDERS Payer name Policy type / Coverage type Becky red constitution party ID [place] Medicare [id number] [facility] [id number] ADVANCE DIRECTIVES Name Date DISCUSSED - NO [...] Karl Wyman MD Cardiology: 3 1 Karl Wymna MD Cardiology Karl Wyman MD Cardiology Karl [...] mr and mild ai and milt tr Kral Wyman MD Cardiology:neg pft N EG VIT [...] a .pacemaker Orders: 9203 MOD 45-59 min (CPT-[id number]) Meet Naranjo MD Electrophysiology:wo re holter in [...] Nitroglycerin 0.4 Mg Tablet, Sublingual (Nitroglycerin) Ochoa Bceerra :NEG VIT D AND BRAIN CT Karl [...] (Valsartan) Metformin 1,000 Mg Tablet (Metformin) [facility] Cardiology:untreated with AHI of 8=48 and oxygen saturation dropping to 80% w ill refer to pulmonary for further management [facility] Cardiology:with EF o f 60% [...] mononitrate) Valsartan 160 Mg Tablet (Valsartan) 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 1 tablet by mouth four times a day Sotalol 80 Mg Tablet (Sotalol) Nitroglycerin 0.4 Mg Tablet, Sublingual (Nitroglycerin) Isosorbide Mononitrate 30 Mg Tablet Extended Release 24 Hr (Isosorbide mononitrate) Julia Giles [facility] Date Name PROTHROMBIN TIME WIT [...] W/EGFR Carotid Duplex Bilat eral DLCO - 95493 FRC - 79896 FVC - 68278 CXR- PA/Lat FOLATE, SERUM VITAMIN B12 IRON [...] MD complete d FVC / MVV - 68033 Karl Wyman MD c ompleted SpO2 w/o 6min walk/titration Karl Wyman MD completed SVC - 37531 Karl Wyman MD complet ed DLCO - 36359 Karl Wyman MD comple venus Gamal Pacheco MD complet ed Gamal Whiting MD completed Gamal Pacheco MD complet ed Gamla Wyman MD complete d Gamal Wyman [...]
--- OUTSIDE RECORDS SUMMARY | 2025-02-12 06:56 | XMS_ITS ---
Author Organization [facility] Address [address] [facility] [address] [place] [address] Care Team Providers Care Regional Engineer Name Role Phone Nhan Gigi Unavailable [phone] SOCIAL HISTORY Sex Assigned At : Social History Observation Description Sex Assigned At Male PROBLEMS Problem Type ICD Code Onset Dates Problem Status W/U Status Risk SNOMED Code Notes Problem Chronic kidney disease, stage 2 (mild) (N18.2) Active confirmed Chronic kidney disease stage 2 (777478699) Encounters Encounter Location Date Provider Diagnosis [facility] [address] [facility] [address] [place] [address] 01/02/2025 Gigi Justin Chronic kidney disea se, [...] Name:Gigi Nhan , 02/13/2025 04:15:00 PM, [address] [facility] [address], [place], [place], [facility], Progress Notes * MANNIE CABELLODOB:1950 ( 75 yo F)Acc No.[id number]:01/02/2025 Progress Notes Patient: MANNIE CABELLO Provider: MD DENY, F.A.C.P, F.A.S.N. :1950 Age:74 Y Sex:Female Date:01/02/2025 Address:[address] [place] [address], [place] [address] Subjective: * Chief Complaints: * * Medical [...] Treatment: * Billing Information: * Visit Code: 00820 Office Visit, Est Pt., Level 4. * Procedure Codes: * Sign off status: Pending * Provider: MD DENY, F.A.C.P, F.A.S.N. Date: 01/02/2025
--- OUTSIDE RECORDS SUMMARY | 2025-02-12 06:56 | XMS_ITS | Clinical Summary ---
Author Organization [facility] Address [address] [place] [address] Care Team Providers Care Cloth Printer Helper Name Role Phone Tiana Patterson MD Primary Care Provider Allergies Active Allergy Reactions Criticality Noted Date Comments Finerenone Other (See Comments) Low 06/21/2024 Lowers BP Medications albuterol (PROVENTIL,BOLA GUADALUPE) 2.5 mg/0.5 mL Solution for Nebulization Take by inhalation. Active atorvastatin (LIPITOR) 40 mg tablet Take 40 mg by mouth daily. Active calcitRIOL (ROCALTROL) 0.25 mcg capsule take 1 capsule by mouth every day for 90 days Active Cholecalciferol, Vitamin D3, 50 mcg (2,000 unit) Capsule 2,000 Units. Active cholestyramine aspartame (PREVALITE,QUEST RAN LIGHT) 4 gram Powder in Packet Take 4 Grams by mouth. Active dipyridamole (PERSANTINE) 75 mg tablet take 1 tablet by mouth four times a day Active cyanocobalamin 1,000 mcg Tablet Take 1 Tablet by mouth daily. 10/02/20 24 Active ergocalciferol (VITAMIN D2) 50,000 unit capsule Take 50,000 Units by mouth every 7 days. Active Jardiance 10 mg tablet Take 10 mg by mouth daily. Active ferrous sulfate 325 mg (65 mg iron) tablet ferrous sulfate 325 mg (65 mg iron) tablet 10/03/20 24 Active finasteride (PROSCAR) 5 mg tablet Take 5 mg by mouth daily. Active Kerendia 20 mg Tablet Take by mouth. 08/09/20 24 Active gabapentin (NEURONTIN) 300 mg capsule take 1 capsule by mouth four times a day Active HYDROcodone-acet aminophen (NORCO) 7.5-325 mg Tablet TAKE 1 TABLET BY MOUTH ONCE OR TWICE DAILY NEEDED 10/12/20 24 Active pantoprazole (PROTONIX) 40 mg Tablet, Delayed Release (E.C.) Take 40 mg by mouth daily. Active Entresto 97-103 mg Tablet Take 1 Tablet by mouth 2 times daily. Active Ozempic 2 mg/dose (8 mg/3 mL) Pen Injector INJECT 2MG UNDER THE SKIN ONCE WEEKLY. START WEEK 13 AND CONTINUE THEREAFTER Active tamsulosin (FLOMAX) 0.4 mg capsule Take 0.4 mg by mouth daily. Active warfarin (COUMADIN) 7.5 mg tablet warfarin 7.5 mg tablet Active SITagliptin phosphate (Januvia) 100 mg Tablet Take 100 mg by mouth daily. 025 Discontinu ed(Alterna te therapy prescribed ) Active Problems Problem Noted Date Diagnosed Date Diabetes mellitus 09/18/2015 Overview (11/01/2024): neg egfr Encounters Date Type Department Care Team Description 02/08/2025 11:30 AM CDT Office Visit [facility] [address] [place] [address] Tommy Ruiz MD Lymphadenopathy (Primary Dx) 01/30/2025 Orders Only [facility] [place] [address] [place] [address] Tommy Ruiz MD 12/25/2024 External Device Data [...] Date Smoking Tobacco: Never Smokeless Tobacco: Never Tobacco Cessation:Counseling Given: Not Answered Alcohol Use Standard Drinks/Week Comments Never 0 (1 standard drink = 0.6 oz pur e alcohol) Sex and Gender Information Value Date Recorded Sex Assigned at Not on file Legal Sex Male 3:06 PM MEDICAL INSURANCE CLERK Gender Identity Not on file Sexual Orientation Not on file Last Filed Vital Signs Vital Sign Reading Time Taken Comments Blood Pressure 120/70 02/08/2025 11:06 AM CDT Pulse 86 02/08/2025 11:06 AM CDT Temperature 36.1 C (96.9 F) 02/08/2025 11:06 AM CDT Respiratory Rate 15 02/08/2025 11:0 6 AM CDT Oxygen Saturation 98% 02/08/2025 11: 06 AM CDT Inhaled Oxygen Concentration - - Weight 106.5 kg (234 lb 12.8 oz) 2024 11:06 AM CDT Height 177.8 cm (5' 10 ) 11/01/2024 11: 29 AM MEDICAL INSURANCE CLERK Body Mass Index 33.69 11/01/2024 11:29 AM MEDICAL INSURANCE CLERK Plan of Treatment Upcoming Encounters Date Type Department Care Team (Late st Contact Info) Description 05/14/2025 11:45 AM CDT Office Visit [facility] - [place] [address] [facility] [address] [place] [address] Tommy Ruiz MD [address] [facility] [address] [place] [address] Health Maintenance Due Date Last Done Comments DIABETES ANNUAL FOOT EXAM 01/30/1968 DIABETES ANNUAL RETINAL EXAM 01/30/1968 DIABETES MICROALBUMIN ANNUAL SCREEN 01/30/1968 LDL CHOLESTEROL ANNUAL 01/30/1968 DTAP/TDAP/TD VACCINES (1 - Tdap) 1969 PNEUMOCOCCAL VACCINE 50+ YEA RS (1 of 2 - PCV) 1969 FIT-DNA Q 3 years 1995 FIT/FOBT Q 1 year 1995 Flex Sig/CT Colonography Q 5 years 1995 ZOSTER VACCINE (1 of 2) 01/30/2000 INFLUENZA VACCINE (#1) 2024 RSV VACCINE (60+ or ) (1 - 1-dose 75+ series) 2025 DIABETES HBA1C Q 6 MONTHS 03/01/2025 08/31/2024 COLORECTAL SCREENING 08/17/2034 08/17/2024, 08/17/20 24 Colorectal [...] Final Result from Last 3 Months Insurance MEDICARE PART A AND B [facility] SUPP Care Teams Cloth Printer Helper Relationship Specialty Start Date End Date Tiana Patterson MD [address] [place] [address] [place] [phone] PCP - General Internal Medicine 11/02/24
--- OUTSIDE RECORDS SUMMARY | 2025-02-12 06:56 | XMS_ITS | Patient Health Record ---
Author Organization [facility] Address [address] [place] [address] [place] [address] Care Team Providers Care Occupational Health Rn Name Role Phone Gigi Justin Unavailable [phone] REASON FOR REFERRAL No Information MEDICATIONS Medication SIG (Take, Route, Frequency, Duration) Notes Start Date End Date Status Ergocalciferol 1.25 MG (82411 UT) 1 capsule Orally Once a week [...] Problem Hyperlipidemia, unspecified (E78.5) Active confirmed Hyperlipidemia (35335753) Problem Anxiety disorder, unspecified (F41.9) Active confirmed Anxiety disorde r (630028384) Problem Heart failure, unspecified (I50.9) Active confirmed Heart failure (36393146) Problem Chronic kidney disease, stage 2 (mild) (N18.2) Active confirmed Chronic kidne y disease stage 2 (794146520) Problem Renal osteodystrophy (N25.0) Active confirmed Renal osteodystrophy (46615348) Problem Chronic fatigue, unspecified (R53.82) Active confirmed Chronic fatigue syndrome (disorder) (43047381) Problem 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 [place] [address] 03/23/2024 Gigi Justin Chronic kidney disea se, stage 3a N18.31 ; Anxiety disorder, unspecified F41.9 ; Chronic fatigue, unspecified R53.82 ; Renal osteodystrophy N25.0 and Heart failure, unspecified I50.9 [facility] [address] [place] [address] 04/04/2024 Gigi Justin Chronic kidney disea se, stage 3a N18.31 ; Anxiety disorder, unspecified F41.9 ; Chronic fatigue, unspecified R53.82 ; Renal osteodystrophy N25.0 and Heart failure, unspecified I50.9 [facility] [address] [place] [address] 04/25/2024 Gigi Singh Chronic kidney disea se, stage 3a N18.31 ; Anxiety disorder, unspecified F41.9 ; Chronic fatigue, unspecified R53.82 ; Renal osteodystrophy N25.0 and Heart failure, unspecified I50.9 [facility] [address] [place] [address] [facility] [address] [place] [address] 12/12/2024 Gigi Justin Chronic kidney disea se, stage 3a N18.31 ; 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 ; Hyperlipidemia, unspecified E78.5 ; CAD (coronary artery disease) I25.10 and Benign prostatic hyperplasia without lower urinary tract symptoms N40.0 [facility] [address] [place] [address] 12/26/2024 [facility] [address] [place] [address] 01/02/2025 Gigi Justin Chronic kidney disea se, stage 2 (mild) N18.2 ; Anxiety disorder, unspecified F41.9 ; Chronic fatigue, unspecified R53.82 ; Renal osteodystrophy N25.0 ; Heart failure, unspecified I50.9 ; 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 ; Hyperlipidemia, unspecified E78.5 ; CAD (coronary artery disease) I25.10 and Benign prostatic hyperplasia without lower urinary tract symptoms N40.0 [facility] [address] [place] [address] 12/19/2024 Gigi Justin [facility] [address] [facility] [address] [place] [address] 01/02/2025 [facility] [address] [facility] [address] [place] [address] 04/25/2024 Gigi Justin ASSESSMENTS Encounter Date Diagnosis [...] Name:Gigi Justin , 02/13/2025 04:15:00 PM, [address] [facility], [facility] [address], [place], [address],
--- OUTSIDE RECORDS SUMMARY | 2025-02-12 06:57 | XMS_ITS | Continuity of Care Document ---
Author Organization [facility] Address [address] [place] [address] [place] [address] Phone Care Team Providers Care Interactive Media Marketing Specialist Name Role Phone Hoa Gonzalez Unavailable Unavailable Procedures Procedure Date Eye Exam & Treatment Refraction Eye Exam & Treatment Eye Exam & Treatment Refraction Advance Directives Directive Yes / No Effective Date File Name No Information Encounters Encounter Description Practice Location Reason(s) For Visit Diagnoses Date Provider Providers Copied on Encounter [facility], [address] [place] [address] [address], [place], [place], [id number], tel:[phone] [facility] No Information Jan- 4-201 0 Lisa Solitario [address], [place], [place], [facility], [place]. tel:[phone] [facility], [address] [place] [address] [address], [place], [place], [id number], [place] tel:[phone] [facility] No Information 9-200 9 Lisa Solitario [address], [place], [place], [facility], [place]. tel:[phone] [facility], [address] [place] [address] [address], [place], [place], [id number], tel:[phone] [facility] No Information 7200 7 Lisa Camara. [address], [place], [address], [place]. tel:[phone] Family History Family Member Type Diagnosis Age At Onset No Information Payers Payer name Insurance type Covered republican ID Authorheidy guerrero(s) [facility] Out Of State [id number] Social History Type Description Quantity Date Captured [...]
--- OUTSIDE RECORDS SUMMARY | 2025-02-12 06:57 | XMS_ITS | Data Portability ---
Author Organization [place] - [facility] [employer], Main Office Address [address] [place] [address] Care Team Providers Care Mechanical Product Design Engineer Name Role Phone TIANA PATTERSON Primary Care Provider TIANA PATTERSON Referring Provider [phone] STELLA WYMAN Assembly Line Leader GIGI RUIZ Fuel Oil Truck Driver Assessment Encounter Date Assessment Date Assessment LastModified [...] available Lab urinalysi s, dipstick 2024 025 BELEN [facility], [address] [facility] [address], [place], [address], 12/17/2024 10:49:09 lipid panel, serum [email or web address] (Lab), [address] [place], [address], 12/06/2024 09:45:12 CBC w/ auto diff 2024 025 [facility] (Lab), [address] [place], [address], 2025 13:52:13 CMP, serum or plasma 2024 025 ROSA [facility] (Lab), [address] [place], [address], 2025 13:52:13 TSH, serum or plasma [address] (Lab), [address] [place], [address], 12/06/2024 09:45:13 vitamin D, 25-hydrox y, total, serum [address] (Lab), [address] [place], [address], 12/06/2024 09:45:13 glycohemo globin, total, blood [address] (Lab), [address] [place], [address], 12/06/2024 09:45:12 microalbu min, urine [address] (Lab), [address] [place], [address], 12/06/2024 09:45:12 lipid panel, serum [address] (Lab), [address] [place], [address], 09/10/2024 10:02:41 CBC w/ auto diff [address] (Lab), [address] [place], [address], 09/10/2024 10:02:41 CMP, serum or plasma 2023 [facility]24 [email or web address] [address] (Lab), [address] [place], [address], 09/10/2024 10:02:41 TSH, serum or plasma [address] (Lab), [address] [place], [address], 09/10/2024 10:02:41 vitamin D, 25-hydrox y, total, serum [address] (Lab), [address] [place], [address], 09/10/2024 10:02:41 glycohemo globin, total, blood [address] (Lab), [address] [place], [address], 09/10/2024 10:02:41 microalbu min, urine [address] (Lab), [address] [place], [address], 09/10/2024 10:02:41 lipid panel, serum 2023 [facility] (Lab), [address] [place], [address], 07/02/2024 14:54:00 CBC w/ auto diff 2023 [facility] (Lab), [address] [place], [address], 07/02/2024 14:34:27 CMP, serum or plasma 2023 [facility] (Lab), [address] [place], [address], 08/31/2024 11:43:26 TSH, serum or plasma 2023 024 [facility] (Lab), [address] [place], [address], 08/31/2024 12:03:05 vitamin D, 25-hydrox y, total, serum 2023 024 [email or web address] [facility] (Lab), [address] [place], [address], 12/03/2024 12:43:14 glycohemo globin, total, blood 2023 024 [facility] (Lab), [address] [place], [address], 09/03/2024 14:39:57 microalbu min, urine 2023 024 [facility] (Lab), [address] [place], [address], 08/31/2024 11:40:26 Referral nephrolog ist referral - Please call patient to schedule an appointme nt. Thank you. 2024 025 [email or web address] Gigi Ruiz MD (Nephrology, [address] [facility], [address], [place], [address], 01/15/2025 18:05:31 pulmonolo gist referral - Please call patient to schedule an appointme nt. Thank you. 2024 025 ROSA Pham Aldridge DIESEL DINKEY ENGINEER-C, [address] [facility], [facility] [address], [place], [address], 02/08/2025 04:12:36 urologist referral - Please call patient to schedule an appointme nt. Thank you. 2024 025 [email or web address] Rafael Mares, [address] [facility], [facility] [address], [place], [address], 12/10/2024 15:04:30 podiatris t referral - Please call patient to schedule an appointme nt. Thank you. ( I believe this patient is already being followed by your office) 2024 025 FLETCHER Wu DPM, [address], [address], [place], [address], 12/10/2024 14:50:39 cardiolog ist referral - Please call patient to schedule an appointme nt. Thank you. 2024 025 FLETCHER Birmingham MD, [address], [address], [place], [address], 01/09/2025 15:36:36 nephrolog ist referral 2023 024 tammy Ruiz MD (Nephrology, [address], [address], [place], [address], 09/10/2024 10:02:41 pulmonolo gist referral - Please call patient to schedule. 2023 024 [email or web address] Pham MIXONP-C, [address] [facility], [facility] [address], [place], [address], 09/21/2024 13:26:19 urologist referral - Please call patient to schedule. 2023 024 ROSA Mares, [address] [facility], [facility] [address], [place], [address], 09/12/2024 16:30:27 podiatris t referral - Please call patient to schedule. 2023 024 [email or web address] Marcelino Wu DPM, [address], [address], [place], [address], 11/15/2024 09:52:52 cardiolog ist referral 2023 024 tammy Wyman MD, [address] [facility] [address], [place], [address], 09/10/2024 10:02:41 nephrolog ist referral 2023 024 [email or web address] Gigi Ruiz MD (Nephrology, [address], [address], [place], [address], 12/03/2024 12:43:33 pulmonolo gist referral 2023 024 [email or web address] Jorge Tyson MD, [address] [facility], [place], [address], 10/25/2024 18:26:15 podiatris t referral 2023 024 [email or web address] Marcelino Wu DPM, [address], [address], [place], [address], 10/25/2024 18:24:16 cardiolog ist referral 2023 024 Stella Wyman MD, [address] [facility], [address], [place], [address], 10/25/2024 18:24:43 Procedures None recorded. Surgeries None recorded. Imaging None recorded. Medication Orders tamsulosi n 0.4 mg capsule 2024 025 [facility] #[id number], [address], [place], [address], 12/14/2024 16:12:42 tamsulosi n 0.4 mg capsule 2023 024 [facility] #[id number], [address], [place], [address], 06/05/2024 15:26:30 Patient TargetsNo targets recorded. Patient Instructions Encounter Date Encounter Id Patient Instructions Last Modified By Organization Details Last Modified Time 09/12/2024 [id number] 1. The patient i s already taking tamsulosin and finasteride 2. I really do not think there is anything I can offer except limit his fluids but otherwise no other recommendations and just follow up as needed Not available 09/12/2024 16:15:42 12/14/2024 [id number] 1. BPH with obstruction 2. I will increase his tamsulosin to 2 capsules a day he will take it at 6:00 p.m. 3. He can either have his primary care refill the prescription or he can come back here in 1 year Not available 12/14/2024 16:12:13 Reason for Referral Entry Level Marketing Assistant Referral for Type 2 diabetes mellitus without complication Referring Physician: Tiana Patterson Internal Medicine, Encounter Date: 06/05/2024 Assembly Line Leader Referral for Co ronary arteriosclerosis Referring Physician: Tiana Patterson Internal Medicine, Encounter Date: 06/05/2024 Cell Support Operator Referral for O bstructive sleep apnea syndrome Referring Physician: Tiana Patterson Internal Medicine, Encounter Date: 06/05/2024 Fuel Oil Truck Driver Referral for Pr oteinuria Referring Physician: Bernard Lieberman Medicine, Encounter Date: 06/05/2024 Entry Level Marketing Assistant Referral for Type 2 diabetes mellitus without complication Please call patient to schedule. Referring Physician: Bernard Lieberman, Encounter Date: 09/04/2024 Assembly Line Leader Referral for Co ronary arteriosclerosis Referring Physician: Bernard Lieberman Medicine, Encounter Date: 09/04/2024 Cell Support Operator Referral for O bstructive sleep apnea syndrome Please call patient to schedule. Referring Physician: Bernard Lieberman Medicine, Encounter Date: 09/04/2024 Fuel Oil Truck Driver Referral for Pr oteinuria Referring Physician: Bernard Lieberman, Encounter Date: 09/04/2024 Urologist Referral for Urina ry incontinence Please call patient to schedule. Referring Physician: Bernard Lieberman, Encounter Date: 09/04/2024 Entry Level Marketing Assistant Referral for Type 2 diabetes mellitus without complication Please call patient to schedule an appointment. Thank you. ( I believe this patient is already being followed by your office) Referring Physician: Tiana Patterson Internal Medicine, Encounter Date: 12/06/2024 Assembly Line Leader Referral for Co ronary arteriosclerosis Please call patient to schedule an appointment. Thank you. Referring Physician: Tiana Patterson Internal Medicine, Encounter Date: 12/06/2024 Cell Support Operator Referral for O bstructive sleep apnea syndrome Please call patient to schedule an appointment. Thank you. Referring Physician: Tiana Patterson Internal Medicine, Encounter Date: 12/06/2024 Fuel Oil Truck Driver Referral for Pr oteinuria Please call patient [...] 7.4 x10'3 /uL 4.2-10 .8 Not Available [facility] (Lab) [address] [place], [address], 08/31/2024 11:18:30 08/31/20 24 08/31/2024 CBC/C OMPLE TE BLD COUNT W/DIF F red blood cells 4.90 x10'6 /uL 4.10-5 .80 Not Available [facility] (Lab) [address] [place], [address], 08/31/2024 11:18:30 08/31/20 24 08/31/2024 CBC/C OMPLE TE BLD COUNT W/DIF F hemoglobin 14.9 g/dL 13.2-1 7.0 Not Available [facility] (Lab) [address] [place], [address], 08/31/2024 11:18:30 08/31/20 24 08/31/2024 CBC/C OMPLE TE BLD COUNT W/DIF F hematocrit 45.5 % 39.3-5 0.0 Not Available [facility] (Lab) [address] [place], [address], 08/31/2024 11:18:30 08/31/2008/31/2024 CBC/C OMPLE TE BLD COUNT W/DIF F mean red cell volume 92.9 fL 80.0-9 7.0 Not Available [facility] (Lab) [address] [place], [address], 08/31/2024 11:18:30 08/31/2008/31/2024 CBC/C OMPLE TE BLD COUNT W/DIF F mean red cell hemoglobin 30.4 pg 27.0-3 3.0 Not Available [facility] (Lab) [address] [place], [address], 08/31/2024 11:18:30 08/31/2008/31/2024 CBC/C OMPLE TE BLD COUNT W/DIF F mean RBC HGB concentratio n 32.7 g/dL 31.0-3 6.0 Not Available [facility] (Lab) [address] [place], [address], 08/31/2024 11:18:30 08/31/2008/31/2024 CBC/C OMPLE TE BLD COUNT W/DIF F red cell distribution width 14.0 % 11.8-1 5.5 Not Available [facility] (Lab) [address] [place], [address], 08/31/2024 11:18:30 08/31/2008/31/2024 CBC/C OMPLE TE BLD COUNT W/DIF F platelets 151 x10'3 /uL 150-40 0 Not Available [facility] (Lab) [address] [place], [address], 08/31/2024 11:18:30 08/31/2008/31/2024 CBC/C OMPLE TE BLD COUNT W/DIF F mean platelet volume 10.0 fL 9.0-12 .4 Not Available [facility] (Lab) [address] [place], [address], 08/31/2024 11:18:30 08/31/2008/31/2024 CBC/C OMPLE TE BLD COUNT W/DIF F neutrophils 78.8 % 39.0-7 2.0 high Not Available [facility] (Lab) [address] [place], [address], 08/31/2024 11:18:30 08/31/2008/31/2024 CBC/C OMPLE TE BLD COUNT W/DIF F lymphocytes 11.8 % 16.0-4 7.0 low Not Available [facility] (Lab) [address] [place], [address], 08/31/2024 11:18:30 08/31/2008/31/2024 CBC/C OMPLE TE BLD COUNT W/DIF F monocytes 8.1 % 5.0-12 .0 Not Available [facility] (Lab) [address] [place], [address], 08/31/2024 11:18:30 08/31/2008/31/2024 CBC/C OMPLE TE BLD COUNT W/DIF F eosinophils 0.5 % 1.0-7. 0 low Not Available [facility] (Lab) [address] [place], [address], 08/31/2024 11:18:30 08/31/2008/31/2024 CBC/C OMPLE TE BLD COUNT W/DIF F basophils 0.3 % 0.0-2. 0 Not Available [facility] (Lab) [address] [place], [address], 08/31/2024 11:18:30 08/31/2008/31/2024 CBC/C OMPLE TE BLD COUNT W/DIF F immature granulocytes 0.5 % 0.00-0 .50 Not Available [facility] (Lab) [address] [place], [address], 08/31/2024 11:18:30 08/31/2008/31/2024 CBC/C OMPLE TE BLD COUNT W/DIF F neutrophils, absolute count 5.82 x10'3 /uL 1.5-8. 0 Not Available [facility] (Lab) [address] [place], [address], 08/31/2024 11:18:30 08/31/2008/31/2024 CBC/C OMPLE TE BLD COUNT W/DIF F lymphocytes, absolute count 0.87 x10'3 /uL 1.07-3 .43 low Not Available [facility] (Lab) [address] [place], [address], 08/31/2024 11:18:30 08/31/2008/31/2024 CBC/C OMPLE TE BLD COUNT W/DIF F monocytes, absolute count 0.60 x10'3 /uL 0.29-0 .99 Not Available [facility] (Lab) [address] [place], [address], 08/31/2024 11:18:30 08/31/2008/31/2024 CBC/C OMPLE TE BLD COUNT W/DIF F eosinophils, absolute count 0.04 x10'3 /uL 0.02-0 .53 Not Available [facility] (Lab) [address] [place], [address], 08/31/2024 11:18:30 08/31/20 24 08/31/2024 CBC/C OMPLE TE BLD COUNT W/DIF F basophils, absolute count 0.02 x10'3 /uL 0.01-0 .08 Not Available [facility] (Lab) [address] [place], [address], 08/31/2024 11:18:30 08/31/20 24 08/31/2024 CBC/C OMPLE TE BLD COUNT W/DIF F immature granulocytes ,absolute 0.04 x10'3 /uL 0.00-0 .05 Not Available [facility] (Lab) [address] [place], [address], 08/31/2024 11:18:30 08/31/20 24 08/31/2024 CBC/C OMPLE TE BLD COUNT W/DIF F nucleated red blood cells 0.0 % -0 Not Available [facility] (Lab) [address] [place], [address], 08/31/2024 11:18:30 08/31/2008/31/2024 CBC/C OMPLE TE BLD COUNT W/DIF F NRBC# 0.00 x10'3 /uL Not Available [facility] (Lab) [address] [place], [address], 08/31/2024 11:18:30 08/31/20 24 08/31/2024 MICRO ALBUM IN RANDO M URINE microalbumin , urine 19.9 mg/L 0.0-16 .6 high Not Available [facility] (Lab) [address] [place], [address], 08/31/2024 11:40:26 08/31/20 24 08/31/2024 LIPID PANEL cholesterol 151 mg/dL 140-19 9 NIH SHANA NSUS RECOM MENDA TION FOR VICKY STERO L: ADULT CHILD LOW RISK: <200 <170 BORDE RLINE : <200- 239 ----- HIGH RISK: >240 >200 Not Available [facility] (Lab) [address] [place], [address], 08/31/2024 11:43:16 08/31/2008/31/2024 LIPID PANEL triglyceride s 168 mg/dL 0-150 high NIH SHANA NSUS REPOR T RECOM MENDA TION FOR TRIGL YCERI VIOLETTA: ADULT CHILD LOW RISK: <150 ----- BODER LINE: 150-1 99 ----- HIGH RISK: >200 ----- Not Available [facility] (Lab) [address] [place], [address], 08/31/2024 11:43:16 08/31/2008/31/2024 LIPID PANEL HDL cholesterol 45 mg/dL 40- Not Available [facility] (Lab) [address] [place], [address], 08/31/2024 11:43:16 08/31/2008/31/2024 LIPID PANEL LDL cholesterol, [...] WILL NOT BE REPOR SHANNAN. Not Available [facility] (Lab) [address] [place], [address], 08/31/2024 11:43:16 08/31/2008/31/2024 COMPR EHENS DEANNA METAB OLIC PANEL sodium 138 mmol/ L 137-14 5 Not Available [facility] (Lab) [address] [place], [address], 08/31/2024 11:43:26 08/31/2008/31/2024 COMPR EHENS DEANNA METAB OLIC PANEL potassium 5.0 mmol/ L 3.5-5. 1 Not Available [facility] (Lab) [address] [place], [address], 08/31/2024 11:43:26 08/31/2008/31/2024 COMPR EHENS DEANNA METAB OLIC PANEL chloride 104 mmol/ L 98-107 Not Available [facility] (Lab) [address] [place], [address], 08/31/2024 11:43:26 08/31/2008/31/2024 COMPR EHENS DEANNA METAB OLIC PANEL carbon dioxide 28 mmol/ L 22-30 Not Available [facility] (Lab) [address] [place], [address], 08/31/2024 11:43:26 08/31/2008/31/2024 COMPR EHENS DEANNA METAB OLIC PANEL anion gap 11.0 mmol/ L 14-22 low Not Available [facility] (Lab) [address] [place], [address], 08/31/2024 11:43:26 08/31/2008/31/2024 COMPR EHENS DEANNA METAB OLIC PANEL glucose 107 mg/dL 70-99 high Not Available [facility] (Lab) [address] [place], [address], 08/31/2024 11:43:26 08/31/2008/31/2024 COMPR EHENS DEANNA METAB OLIC PANEL BUN 16 mg/dL 8-19 Not Available [facility] (Lab) [address] [place], [address], 08/31/2024 11:43:26 08/31/20 24 08/31/2024 COMPR EHENS DEANNA METAB OLIC PANEL creatinine 0.76 mg/dL 0.66-1 .25 Not Available [facility] (Lab) [address] [place], [address], 08/31/2024 11:43:26 08/31/2008/31/2024 COMPR EHENS DEANNA METAB OLIC PANEL GFR >60 Refer ence Range : [place] ge GFR Healt hy Adult : >60 mL/mi n/1.7 3 m2 Chron ic Kidne y Disea se: 15-60 mL/mi n/1.7 3 m2 Kidne y Failu re: <15/m L/min /1.73 m2 www.n iddk. [facility].g ov The MDRD study equat ion has not been valid ated in child samia <18 years of age; pregn ant women ; the elder ly >85 years of age; or in some racia l or ethni c subgr oups, such as Hisolu nics. Outsi de the valid ated tiffanie [...] calcu lator is avail able on the [facility] websi te: https ://fozia w.steve luna.o rg/pr ofess ional s/kdo qi/gf r_cal culat or Not Available [facility] (Lab) [address] [place], [address], 08/31/2024 11:43:26 08/31/2008/31/2024 COMPR EHENS DEANNA METAB OLIC PANEL alkaline phosphatase 64 U/L 38-126 Not Available [facility] (Lab) [address] [place], [address], 08/31/2024 11:43:26 08/31/20 24 08/31/2024 COMPR EHENS DEANNA METAB OLIC PANEL alanine aminotransfe rase 17 U/L 0-50 Not Available [facility] (Lab) [address] [place], [address], 08/31/2024 11:43:26 08/31/20 24 08/31/2024 COMPR EHENS DEANNA METAB OLIC PANEL aspartate aminotransfe rase 23 U/L 15-46 Not Available [facility] (Lab) [address] [place], [address], 08/31/2024 11:43:26 08/31/2008/31/2024 COMPR EHENS DEANNA METAB OLIC PANEL bilirubin, total 0.80 mg/dL 0.20-1 .30 Not Available [facility] (Lab) [address] [place], [address], 08/31/2024 11:43:26 08/31/2008/31/2024 COMPR EHENS DEANNA METAB OLIC PANEL calcium 9.4 mg/dL 8.4-10 .2 Not Available [facility] (Lab) [address] [place], [address], 08/31/2024 11:43:26 08/31/2008/31/2024 COMPR EHENS DEANNA METAB OLIC PANEL total protein 6.0 g/dL 6.3-8. 2 low Not Available [facility] (Lab) [address] [place], [address], 08/31/2024 11:43:26 08/31/20 24 08/31/2024 COMPR EHENS DEANNA METAB OLIC PANEL albumin 3.7 g/dL 3.0-4. 4 Not Available [facility] (Lab) [address] [place], [address], 08/31/2024 11:43:26 08/31/20 24 08/31/2024 COMPR EHENS DEANNA METAB OLIC PANEL globulin 2.3 g/dL 2.6-4. 2 low Not Available [facility] (Lab) [address] [place], [address], 08/31/2024 11:43:26 08/31/2008/31/2024 COMPR EHENS DEANNA METAB OLIC PANEL A/G ratio 1.6 ratio 1.0-2. 0 Not Available [facility] (Lab) [address] [place], [address], 08/31/2024 11:43:26 08/31/2008/31/2024 TSH W/REF SAAD FT4 TSH with reflex free T4 0.684 uIU/m L 0.465- 4.680 Not Available [facility] (Lab) [address] [place], [address], 08/31/2024 12:03:05 08/31/2008/31/2024 VITAM IN D 25-HY DROXY [id number] 24.1 NG/mL 30-100 low Vitam in D Statu s: Defic ient: <20 ng/mL Insuf ficie nt: 20-29 ng/mL Suffi cient : 30-10 0 ng/mL Not Available [facility] (Lab) [address] [place], [address], 08/31/2024 12:05:58 08/31/2009/03/2024 HEMOG LOBIN A1C HA1C 5.9 % 4.0-6. 0 Diabe sal Scree elliott Crite jack: <5.7% Consi stent with absen ce of diabe sal 5.7-6 .4% Consi stent with incre ased risk for diabe sal (pred iabet es) >OR=6 .5% Consi stent with diabe sal REFER ENCE: Diabe sal Care 2016, 39(Zacarias ppl.1 ):s13 -s22 Not Available [facility] (Lab) [address] [place], [address], 09/03/2024 14:39:57 05/22/20 24 05/22/2024 cardi ac stres s test No observ ation record ed. [address] [facility] [address], [place], [address], 10/23/2024 09:06:42 09/14/20 24 09/14/2024 imagi ng/di agnos tic resul t No observ ation record ed. [address] [facility] [address], [place], [address], 10/23/2024 09:07:00 09/18/20 24 09/18/2024 CT, angio gram, chest + abdom en + pelvi s, w/ contr ast No observ ation record ed. [address] [place], [address], 10/23/2024 09:08:31 09/27/20 24 09/27/2024 XR, chest , 2 view No observ ation record ed. [address] [place], [address], 10/23/2024 09:08:46 10/24/20 24 10/24/2024 US, liver [facility] [address] [place] [address] [phone] Patien t Name: MANNIE NEVAREZ Access ion #: [id number] Sex: M : 1949 4 Dictat [...] at 2023 07:51: 24 AM Page 1 [email or web address] [facility] (One Call Scheduling) [address] [place] [address], [address], 11/27/2024 11:50:16 01/30/20 25 2025 imagi ng/di agnos tic resul t No observ ation record ed. [address], [address], 2025 17:01:47 02/04/20 25 02/03/2025 imagi ng/di agnos tic resul t No observ ation record ed. [address], [address], 02/03/2025 11:27:52 02/04/20 25 02/03/2025 imagi ng/di agnos tic resul t No observ ation record ed. [address], [address], 02/03/2025 12:32:48 Result Notes None recorded. Problems Name Problem SNOMED Code Status Onset Date Resolution Date Notes Provider Name and Address Organization Details Recorded Time Spinal stenosis of lumbar region 60808912 Active 2022 Not Available [facility] 03/01/202 3 12:47:20 Morbid obesity 989653008 Active 2022 Not Available [facility] 3 12:47:20 Osteoarthr itis of knee 168238159 Active Not Available [facility] 3 12:47:20 Low back pain 748558760 Active 2022 Not Available [facility] 3 12:47:20 Osteoarthr itis 482891608 Active 2021 Not Available [facility] 3 12:47:20 Arthropath y of joint of hand 166414399 Active Not Available [facility] 3 12:47:20 Osteoarthr itis of right knee joint 7409106396224 00 Active 2022 BENNIE Luis, [place] - [facility] 3 08:45:57 Coronary arterioscl erosis 70247850 Active 2022 Tiana bryant MD [address], [address], [place], [address] , [facility] 3 13:56:07 Type 2 diabetes mellitus without complicati on 135524263 Active 2022 Tiana bryant MD [address], [address], [place], [address] , [facility] 3 13:56:16 Hyperlipid emia 58015336 Active 2022 Tiana bryant MD [address], [address], [place], [address] , [facility] 3 13:56:56 Vitamin D deficiency 09847235 Active 2022 Tiana bryant MD [address], [address], [place], [address] , [facility] 3 14:07:39 Urinary incontinen ce 456725377 Active 2022 Tiana bryant MD [address], [place], [address] , [facility] 3 14:23:53 Gastroesop hageal reflux disease without esophagiti s 430848009 Active 2022 Tiana bryant MD [address], [place], [address] , [facility] 3 14:24:14 Chronic pain 96754102 Active 2022 Tiana bryant MD [address], [place], [address] , [facility] 3 14:24:54 Atrial fibrillati on 25665473 Active 2022 Tiana bryant MD [address], [place], [address] , [facility] 3 14:25:54 Obstructiv e sleep apnea syndrome 00603823 Active 2022 Tiana bryant MD [address], [place], [address] , [facility] 3 14:26:12 Bilateral osteoarthr itis of knees 4287660814001 07 Active 2022 BENNIE Luis null, [place] - [facility] 3 08:33:04 Osteoarthr itis of left knee joint [id number] 09 Active 2022 Amaya Beth CMA null, [place] [facility] 3 08:49:55 Chronic diarrhea [id number] Active 2023 Evelina Best MA null, [place] [facility] 4 11:40:20 Proteinuri a [id number] Active 2023 Tiana bryant MD [address], [place], [address] , [facility] 4 17:27:16 Pain of left knee joint [id number] 07 Active 2023 Tiana bryant MD [address], [place], [address] , [facility] 4 09:36:49 Diarrhea 78340902 Active 2023 Tiana bryant MD [address], [place], [address] , [facility] 4 10:17:42 Chronic pain syndrome [id number] Active 2023 E[facility] Best [facility] system, [facility] 4 14:16:46 Neuropathy 379193994 Active 2023 Tiana bryant MD [address], [place], [address] , [facility] 4 15:37:24 Pruritic rash 33973117 Active 2023 Tiana bryant MD [address], [place], [address] , [facility] [employer] [facility] 4 09:27:08 Lesion of skin of face 141056279733 Active 2023 Tiana bryant MD [address], [place], [address] , [facility] 4 09:29:33 Erectile dysfunctio n 483420964 Active 2023 Tiana bryant MD [address], [place], [address] , [facility] [employer] [facility] 4 12:03:37 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 697123091 Active 2023 Rafael Mares MD [address], [place], [address] , [facility] 4 16:15:23 Paratrache al lymphadeno tierra 91542956 Active 2023 Mildred Fam CMA null, [facility] [employer] [facility] 4 09:52:03 Non-alcoho lic fatty liver 390343276 Active 2023 Mildred Fam [employer] DIRECTOR null, [facility] [employer] [facility] 4 09:56:45 Hepatomega ly 89688935 Active 2023 Mildred Fam CMA null, [place] [employer] [facility] [employer] [facility] 4 16:09:09 Notes:Medical History: Anxie ty Rhinitis with postnasal drip Obesity with very sevre OSAHS, AHI = 49, 01/22/16, off autoCPAP Hypertension Hyperlipidemia T2DM with neuropathy CAD s/p MN ZACK Urge urinary incontinence BPH RLS Gout Knee/Hand OA on hydrocodone Procedure History: T&A 1957 CABG 1993 AVR 2004 Gastric sleeve surgery 2016 Problem Notes None recorded. Procedures Surgical History Date Name Laterality Status Provider Name and Address Organization Details Recorded Time 03/16/20 24 Pacemaker completed BENNIE Saldivar [facility] [employer] [facility] 04/26/2024 09:09:47 01/26/20 Medicare Wellness CPT Code, subsequent completed Eusebia Taylor MA [facility] [employer] [facility] 01/26/2024 10:46:49 11/07/19 00 bariatric operative procedure completed Bibiana Manzano MS [employer] [facility] [employer] [facility] 09/12/2024 14:14:45 open heart surgery completed Valarie Reed Jose [facility] [employer] [facility] 10/20/2023 14:17:29 Knee Replacement completed BENNIE Saldivar [facility] [employer] [facility] 10/20/2023 14:06:52 Knee completed BENNIE Saldivar [facility] [employer] [facility] 10/20/2023 14:07:29 Tonsillectomy completed Valarie Reed Jose [facility] [employer] [facility] 10/20/2023 14:07:35 Imaging Results Imaging Date Name Status LastModified by [facility] Details LastModified Time 05/22/2024 cardiac stress test completed [address] [facility] [address], [place], [address], 10/23/2024 09:06:42 09/14/2024 imaging/diagn ostic result completed [address] [facility] [address], [place], [address], 10/23/2024 09:07:00 09/18/2024 CT, angiogram, chest + abdomen + pelvis, w/ contrast completed [address] [place], [address], 10/23/2024 09:08:31 09/27/2024 XR, chest, 2 view completed [address] [place], [address], 10/23/2024 09:08:46 10/24/2024 US, liver active [facility] ([facility] Sched[facility]) [address] [place], [address], 11/27/2024 11:50:16 2025 imaging/diagn ostic result active [address], [address], 2025 17:01:47 02/03/2025 imaging/diagn ostic result active [address], [address], 02/03/2025 11:27:52 02/03/2025 imaging/diagn ostic result active [address], [address], 02/03/2025 12:32:48 Procedure Notes None recorded. Medical Equipment None [...] EVENING WITH 5 MG TABLET TUE,, AND SAT ONLY TOTAL = 7.5MG 09/12 [...] Not Available Not Available No t Available Cholestyram ine Light 4 gram powder for suspension in a packet Take 1 packet twice a day by oral route as needed. 2024 active Not Available Not Available Not Avai lable Lipitor 20 mg tablet Take 1 tablet [...] suspension for injection in office 01/25 completed [facility]: [id number] [id number] 20 Not Available Not Available [...] Not Available No t Available amoxicillin 875 mg-mindiu m clavulanate 125 mg tablet TAKE 1 [...] administe red by the provider 11/10 completed [facility]: 0409- [id number] 17 Not Available Not Available [...] 2 SCOOPS BY MOUTH ONCE DAILY NEEDED 02/04 completed Not Available Not Available Not Available Gavilyte-C 240 gram-22.72 gram-6.72 gram-5.84 gram [...] , administe red by provider 12/15 completed [facility] [id number] -[id number] [phone] Not Available Not Available Not [...] INJECT 0.25MG UNDER THE SKIN ONCE WEEKLY S9FCTVR THEN INCREASE TO 0.5MG ONCE WEEKLY V2DNETU 10/20 completed Not Available Not Available Not [...] and Address Organization Details Last Updated DateTime 175.26 cm 34.9 kg/m2 221448. 8 g 97.4 [degF] 78 /min 110 mm[Hg] 62 mm[Hg] Valarie Reed Jose [facility] [employer] [facility] 4 14:56:36 Date Recorded Body height Body temperature Heart rate Systolic blood pressure Diastolic blood pressure Provider Name and Address Organization Details Last Updated DateTime 09/04/2024 175.26 cm 97.2 [degF] 78 /min 128 mm[Hg] 70 mm[Hg] Valarie Reed Jose [facility] [employer] [facility] 4 11:56:36 Date Recorded Body height Body mass index (BMI) Body weight Body temperature Oxygen saturation Oxygen saturation in Arterial blood by Pulse oximetry Heart rate Systolic blood pressure Diastolic blood pressure Provider Name and Address Organization Details Last Updated DateTime 4 172.72 cm 37.6 kg/m2 946874. 32 g 97.3 [degF] 96 % 96 % 85 /min 132 mm[Hg] 73 mm[Hg] Bibiana Manzano [facility] [employer] [facility] 4 14:13:00 Date Recorded Body height Body mass index (BMI) Body weight Body temperature Heart rate Oxygen saturation Oxygen saturation in Arterial blood by Pulse oximetry Pain severity - 0-10 verbal numeric rating [Score] - Reported Systolic blood pressure Diastolic blood pressure Provider Name and Address Organization Details Last Updated DateTime 5 172.72 cm 36.6 kg/m2 352056. 76 g 97.4 [degF] 89 /min 98 % 98 % 5 120 mm[Hg] 60 mm[Hg] Diane Clarke MA [facility] [employer] [facility] 5 09:06:59 Date Recorded Body height Body temperature Heart rate Oxygen saturation Oxygen saturation in Arterial blood by Pulse oximetry Systolic blood pressure Diastolic blood pressure Provider Name and Address Organization Details Last Updated DateTime 5 172.72 cm 97.2 [degF] 85 /min 97 % 97 % 116 mm[Hg] 93 mm[Hg] Bibiana Manzano MS [employer] [facility] [employer] [facility] 5 15:36:18 Social History Question Answer Notes LastModified by Organizat ion Details LastModified Time Tobacco Smoking Status Never Smoker Not Available [facility] 01/05/2023 12:45:57 Do You Have An Advance Directive? No Information not available 10/20/2023 What Is Your Level Of Alcohol Consumption? None [id number] Information not available 01/05/2023 Are You Blind Or Do You Have Difficulty Seeing? No Information not available 10/20/2023 What Is Your Level Of Caffeine Consumption? Moderate Information not available 10/20/2023 In The 14 Days Before Symptom Onset, Have You Had Close Contact With A [facility] While That Case Was Ill? No Information not available 10/20/2023 In The 14 Days Before Symptom Onset, Have You Had Close Contact With A Person Who Is Under Investigation For COVID-19 While That Person Was Ill? No Information not available 10/20/2023 Are You Currently Employed? No Ivette poe Information not available 10/20/2023 Are You Deaf Or Do You Have Serious Difficulty Hearing? No Information not available 10/20/2023 What Type Of Diet Are You Following? REGULAR [id number].[id number] Information not available 01/05/2023 What Is The Highest Grade Or Level Of School You Have Completed Or The Highest Degree You Have Received? [id number] Information not available 10/20/2023 Do You Have An Electrostatic Air Filter? No MIGRATION.66349 [id number] Information not available 01/05/2023 Have There Been Any Changes To Your Family Or Social Situation? No Information not available 04/16/2024 What Is The Fluoride Status Of Your Home? Unknown Information not available 10/20/2023 Are There Any Guns Present In Your Home? Yes [id number] Information not available 01/05/2023 Do You Have A Humidifier? Yes MIGRATION.13406 58215 Information not available 01/05/2023 Do You Use Insect Repellent Routinely? No Information not available 12/06/2024 Where Do You Live? [place] MIGRATION.[id number] Information not available 01/05/2023 Do You Have A Medical Power Of Dental Receptionist? Yes Information not available 10/20/2023 Do You Have Moisture Problems In Your Home? No MIGRATION.28854 41520 Information not available 01/05/2023 What Was The Date Of Your Most Recent Tobacco Screening? 12/14/2024 [email or web address] Information not available 12/14/2024 Do You Have Any Pets? Yes MIGRATION.86878 [id number] Information not available 01/05/2023 What Is Your Relationship Status? Information not available 10/20/2023 Do You Use Your Seat Belt Or Car Seat Routinely? Yes Information not available 10/20/2023 Do You Have Smoke And Carbon Monoxide Detectors In Your Home? Yes MIGRATION.24944 08811 Information not available 01/05/2023 Are You Passively Exposed To Smoke? No MIGRATION.45608 64567 Information not available 01/05/2023 Are There Any Smokers In Your House? No Information not available 10/20/2023 Do You Feel Stressed (tense, Restless, Nervous, Or Anxious, Or Unable To Sleep At Night)? [id number] Information not available 10/20/2023 Do You Use Any Illicit Or Recreational Drugs? No Information not available 10/20/2023 Do You Use Sunscreen Routinely? No MIGRATION.64131 81699 Information not available 01/05/2023 Has Tobacco Cessation Counseling Been Provided? No N/a Information not available 10/20/2023 Have You Recently Traveled Abroad? No MIGRATION.48980 18951 Information not available 01/05/2023 Do You Have Any Dietary Restrictions? No MIGRATION.22205 75416 Information not available 01/05/2023 Do You Or [...] Organization Details LastModified Time Father Heart disease [id number] Not available 01/05/2023 12:45:59 Father Hypertensive disorder [id number] [id number] Not available 01/05/2023 12:45:59 Father Diabetes mellitus [id number] [id number] Not available 01/05/2023 12:45:59 Medical History Condition [...] SNOMED-CT Code Diagnosis ICD10 Code Diagnosis Note [id number] [facility] [place] [address] [place] [address] 02/18/2021 00:00:00 02/18/2021 11:32:06 [id number] [facility] [place] [address] [place] [address] 06/19/2021 00:00:00 06/19/2021 14:55:34 [id number] [facility] [place] [address] [place] [address], [place] [address] 11/17/2021 00:00:00 11/17/2021 15:32:34 [id number] [facility] [address] [place] [address], [place] [address] 01/12/2022 00:00:00 01/12/2022 10:01:46 [id number] [facility] [place] [address] [place] [address] 2022 00:00:00 2022 14:19:26 [id number] [facility] [place] [address] [place] [address] 05/26/2022 00:00:00 05/26/2022 15:15:44 [id number] [facility] [address] [place] [address], [place] [address] 08/10/2022 00:00:00 08/10/2022 10:20:52 [id number] [facility] [place] [address] [place] [address] 09/08/2022 00:00:00 09/08/2022 09:38:15 [id number] [facility] [place] [address] [place] [address] 11/25/2022 00:00:00 11/25/2022 09:19:23 [id number] [facility] [place] [address] [place] [address] 12/17/2022 00:00:00 12/17/2022 10:08:24 [id number] [facility] [place] [address] [place] [address] 12/23/2022 00:00:00 12/23/2022 09:20:24 [id number] [facility] [place] [address] [place] [address] 12/30/2022 00:00:00 12/30/2022 09:33:05 [id number] OLU Suarez [facility] [place] [address] [place] [address] 03/25/2023 08:38:13 03/25/2023 09:26:01 Osteoarthritis of right knee joint 3070228652 25343 M17.11 [id number] OLU Suarez [facility] [place] [address] [place] [address] 06/24/2023 08:44:09 06/24/2023 09:15:28 Osteoarthritis of right knee joint 1297115188 21069 M17.11 [id number] Tiana bryant MD [facility] Internal Med [facility] [address] [facility], [address] [place] [address] 10/20/2023 13:47:19 10/20/2023 15:03:58 Screening - NAD 805270462 Z13.9 C-scope: Get yearly flu shotGet TdapGet Shingrix vaccineGet PCV #20Get COVID 19 vaccineGet RSV vaccine RTC in 3 months, do labs ER if worse, he did verbalize his understand ing of the above Coronary arteriosclerosis 11971541 I25.10 On ASAOn dipyridamo le 75mg qidOn isosorbide ER 30mg dailyOn NTGOn sotalol 80mg bidOn torsemide 20mg dailyOn valsartan 160mg bidOn warfarin Sees Dr Wyman, INR to be done by [facility] 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 610633624 E11.9 On jardiance 10mg dailyOn metformin 1000mg dailyOn Ozempic 2mg weekly Get labs Hyperlipidemia 58512139 E78.5 Screening for malignant neoplasm of prostate 534134202 Z12.5 Vitamin D deficiency 347 04750 E55.9 Urinary incontinence 165 695471 R32 On finasterid e 5mg daily Gastroesop hageal reflux disease without esophagitis 695242822 K21.9 On pantoprazo le 40mg dailyGet EGD done Chronic pain 78816026 G8 9.29 Advised not to take any NSAIDs!Nee ds to see pain management , unable to provide any opiates or controlled substances Atrial fibrillation 4943 [address] I48.[address] Wyman Obstructiv e sleep apnea syndrome 25626378 G47.33 Screening for malignant neoplasm of colon 001133800 Z12.11 [id number] Jorge Richard MD [facility] [place] [address] [place] [address] 10/26/2023 08:26:07 10/26/2023 09:13:32 Osteoarthritis of right knee joint 0460393254 34668 M17.11 [id number] Tiana bryant MD [facility] Internal Med [facility] [address] [facility], [facility] [address] [place] [address] 01/26/2024 08:52:47 01/26/2024 10:22:16 Screening - NAD 536703069 Z13.9 C-scope: Get this done Get yearly flu shotGet TdapGet Shingrix vaccineGet PCV #20Get COVID 19 vaccineGet RSV vaccine RTC in 3 months, do labs ER if worse, he did verbalize his understand ing of the above Coronary arteriosclerosis 19292278 I25.10 ECHO 01/05/2024 : In a fib On ASAOn dipyridamo le 75mg qidOn isosorbide ER 30mg dailyOn NTGOn sotalol 80mg bidOn torsemide 20mg dailyOn valsartan 160mg bidOn warfarin Sees Dr Wyman, INR to be done by [facility] 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 054291039 E11.9 On jardiance 10mg dailyNot on metformin 1000mg dailyNot on Ozempic 2mg weekly, stopped by Dr Wyman 01/12/2024 , d/t diarrhea Get labs Hyperlipidemia 91863524 E78.5 On atorvastat in 40mg dailyGet labs Vitamin D deficiency 347 98530 E55.9 Urinary incontinence 165 879749 R32 On finasterid e 5mg daily Gastroesop hageal reflux disease without esophagitis 455253731 K21.9 On pantoprazo le 40mg dailyGet EGD done Chronic pain 17209647 G8 9.29 Advised not to take any NSAIDs!Nee ds to see pain management , unable to provide any opiates or controlled substances OV 01/26/2024 :[facility] pain management 11/17/2023 His hydrocodon e was not prescribed , and this did coincide with his diarrhea, may be withdrawal ? Atrial fibrillation 4943 6004 I48.[address] Wyman Obstructiv e sleep apnea syndrome 34131270 G47.33 Dr Tyson 08/10/2022 Screening for malignant neoplasm of colon 664738344 Z12.11 Proteinuria 18841661 R80 .9 On kerendiaNe eds to see nephrology Pain of le ft knee joint 1662820534 64671 M25.562 José Miguel PRASAD 01/25/2024 , s/p kenalog Diarrhea 84277398 R19.7 Has stopped the metformin, ozempicHis opiates were not renewed by pain management Also stop the iron tabsMay need to be on cholestyra mine or take lomotil as neededIf not better then see GI Adult heal th examination 094181683 Z00.00 Screening for disorder 514864979 Z13.9 [id number] OLU Suarez [facility] [place] [address] [place] [address] 01/25/2024 08:59:32 01/25/2024 11:45:22 Osteoarthritis of left knee joint 6885926297 35446 M17.12 [id number] Tiana bryant MD [facility] Internal Med [facility] [address] [place] [address] 04/16/2024 08:54:53 04/16/2024 09:30:32 Screening - NAD 249059340 Z13.9 C-scope: Get this done Get yearly flu shotGet TdapGet Shingrix vaccineGet PCV #20Get COVID 19 vaccineGet RSV vaccine RTC in 2 months, do labs ER if worse, he did verbalize his understand ing of the above Coronary arteriosclerosis 95707371 I25.10 ECHO 01/05/2024 : In a fib On ASAOn dipyridamo le 75mg qidOn isosorbide ER 30mg dailyOn NTGOn sotalol 80mg bidOn torsemide 20mg dailyOn valsartan 160mg bidOn warfarin Sees Dr Wyman, INR to be done by [facility] 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 679551700 E11.9 On jardiance 10mg dailyNot on metformin 1000mg dailyNot on Ozempic 2mg weekly, stopped by Dr Wyman 01/12/2024 , d/t diarrhea Get labs Hyperlipidemia 07418858 E78.5 On atorvastat in 40mg dailyGet labs Vitamin D deficiency 347 48723 E55.9 Urinary incontinence 165 934409 R32 On finasterid e 5mg daily Gastroesop hageal reflux disease without esophagitis 278934377 K21.9 On pantoprazo le 40mg dailyGet EGD done Chronic pain 02670917 G8 9.29 Advised not to take any [...] Dr Wyman Obstructiv e sleep apnea syndrome 72070298 G47.33 Dr Tyson 08/10/2022 Screening for malignant neoplasm of colon 823918251 Z12.11 Proteinuria 36257606 R80 .9 On [facility] eds to see nephrology Pain of le ft knee joint 9971112510 51870 M25.562 José Miguel PRASAD 01/25/2024 , s/p kenalog Diarrhea 17440687 R19.7 Has stopped the metformin, ozempicHis opiates were not renewed by pain management Also stop the iron tabsMay need to be on cholestyra mine or take lomotil as neededIf not better then see GI OV 04/16/2024 :On cholestyra minaShould see GI to determine the cause of the diarrhea Neuropathy 639401316 G62 .9 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) Pruritic rash 96383814 L 28.2 Lesion of skin of face 4296419495 06 L98.9 Sees his dermatolog ist in [place] , [facility] hyperemic lesion noted on the L scalp and R mid neck [id number] Tiana bryant MD [facility] [address] [facility] [address] [place] [address] 04/26/2024 08:23:58 04/26/2024 09:38:30 Screening - NAD 673791435 Z13.9 C-scope: Get this done Get yearly flu shotGet TdapGet Shingrix vaccineGet PCV #20Get COVID 19 vaccineGet RSV vaccine RTC in 2 months, do labs ER if worse, he did verbalize his understand ing of the above Coronary arteriosclerosis 82196096 I25.10 ECHO 01/05/2024 : In a fibUS carotid 02/02/2024 On ASAOn coregOn dipyridamo le 75mg qidOn isosorbide ER 30mg dailyOn NTGNot on sotalol 80mg bidOn torsemide 20mg dailyNot on valsartan 160mg bid, d/c 04/12/2024 On entresto 97-103mg bid Dr Wyman 04/12/[address] Wyman, INR to be done by [facility] 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 427212125 E11.9 On jardiance 10mg dailyNot on metformin 1000mg dailyNot on Ozempic 2mg weekly, stopped by Dr Wyman 01/12/2024 , d/t diarrhea Get labs Hyperlipidemia 14366090 E78.5 On atorvastat in 40mg dailyGet labs Vitamin D deficiency 347 67771 E55.9 Urinary incontinence 165 790820 R32 On finasterid e 5mg daily Gastroesop hageal reflux disease without esophagitis 079967577 K21.9 On pantoprazo le 40mg dailyGet EGD done, has seen Dr Spears Chronic pain 09580052 G8 9.29 Advised not to take any [...] Dr Wyman Obstructiv e sleep apnea syndrome 27159416 G47.33 Dr Tyson 08/10/2022 Proteinuria 65435039 R80 [address] Ruiz 03/27/2024 Pain of le ft knee joint 6109900574 02520 M25.562 José Miguel Sheehanstef PRASAD 01/25/2024 , s/p kenalog Diarrhea 88798594 R19.7 Has stopped the metformin, ozempicHis opiates were not renewed by pain management Also stop the iron tabsMay need to be on cholestyra mine or take lomotil as neededIf not better then see GI OV 04/16/2024 :On cholestyra minaShould see GI to determine the cause of the diarrhea OV 04/26/2024 :Dr Spears 04/11/2024 , to get EGD and C-scope Neuropathy 183413876 G62 .9 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) Pruritic rash 11659486 L 28.2 Has noted a rash underneath the abdominal fold, none today, but has used clot-betam ethasone in the past with good reliefRene w the clotrimazo le-betamet hasone cream Lesion of skin of face 9373843633 06 L98.9 [facility] noted on the L scalp and R mid neck [id number] Tiana bryant MD [facility] Internal Med [place] [address] [facility], [address] [place] [address] 06/05/2024 14:41:48 06/05/2024 15:28:55 Screening - NAD 895953318 Z13.9 C-scope: Get this done Get yearly flu shotGet TdapGet Shingrix vaccineGet PCV #20Get COVID 19 vaccineGet RSV vaccine RTC in 3 months, do labs ER if worse, he did verbalize his understand ing of the above Coronary arteriosclerosis 55198647 I25.10 ECHO 01/05/2024 : In a fibUS carotid 02/02/2024 On ASAOn coreg 3.125mg bidOn dipyridamo le 75mg qidOn isosorbide ER 30mg dailyOn NTGNot on sotalol 80mg bidOn torsemide 20mg dailyNot on valsartan 160mg bid, d/c 04/12/2024 On entresto 97-103mg bid Dr Wyman 04/12/[address] Wyman, [facility] another procedure done by Dr Wyman as per his history 06/05/2024 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 706431260 E11.9 On jardiance 10mg dailyNot on metformin 1000mg dailyBack on Ozempic 2mg weekly as he feels that his diarrhea has improved, advised to stop if getting any procedure 06/05/2024 Get labs Hyperlipidemia 50959334 E78.5 On atorvastat in 40mg dailyGet labs Vitamin D deficiency 347 91340 E55.9 Urinary incontinence 165 416425 R32 On finasterid e 5mg dailyOn flomax renewed 06/05/2024 Gastroesop hageal reflux disease without esophagitis 092857656 K21.9 On pantoprazo le 40mg dailyGet EGD done, has seen Dr Spears Chronic pain 60166386 G8 9.29 Advised not to take any [...] Dr Wyman Obstructiv e sleep apnea syndrome 28078492 G47.33 Dr Tyson 08/10/2022 Proteinuria 50575032 R80 .9 Not on kerendiaDr Ruiz 03/27/2024 Pain of le ft knee joint 2281295884 60730 M25.562 José Miguel PRASAD 01/25/2024 , s/p kenalog Diarrhea 40649223 R19.7 Has stopped the metformin, ozempicHis opiates [...] 06/05/2024 : Get EGD and C-scope Neuropathy 064778217 G62 .9 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) Pruritic rash 45067778 L 28.2 Has noted a rash underneath the abdominal fold, none today, but has used clot-betam ethasone in the past with good reliefRene w the clotrimazo le-betamet hasone cream as needed Lesion of skin of face 4058660557 06 L98.9 [facility] ist [facility] [place] [facility] noted on the L scalp and R mid neck [id number] Tiana bryant MD [facility] Internal Med [facility] [address] [facility] [place] [address] 09/04/2024 11:32:25 09/04/2024 12:23:42 Screening - NAD 831277155 Z13.9 C-scope: Get this done Get yearly flu shotGet TdapGet Shingrix vaccineGet PCV #20Get COVID 19 vaccineGet RSV vaccine RTC in 3 months, do labs ER if worse, he did verbalize his understand ing of the above Coronary arteriosclerosis 01138654 I25.10 ECHO 01/05/2024 : In a fibUS carotid 02/02/2024 HC 08/21/2024 : HV Dr Jenkins On ASANot on coreg 3.125mg bidOn dipyridamo le 75mg qidNot on isosorbide ER 30mg dailyOn NTGNot on sotalol 80mg bidOn torsemide 20mg dailyNot on valsartan 160mg bid, d/c 04/12/2024 On entresto 49-51mg bid Dr Spencer warfarin Sees Dr Wyman last OV 08/09/2024 , referred Dr Wise 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 154849689 E11.9 On jardiance 10mg dailyNot on metformin 1000mg dailyBack on Ozempic 2mg weekly as he feels that his diarrhea has improved, advised to stop if getting any procedure 06/05/2024 Get labs Hyperlipidemia 94419970 E78.5 On atorvastat in 40mg dailyGet labs Vitamin D deficiency 347 85650 E55.9 Urinary incontinence 165 490351 R32 On finasterid e 5mg dailyOn flomax renewed 06/05/[address] Mares 09/04/2024 Gastroesop hageal reflux disease without esophagitis 627025631 K21.9 On pantoprazo le 40mg dailyGet EGD done, has seen Dr Spears Chronic pain 85442000 G8 9.29 Advised not to take any [...] Dr Wyman Obstructiv e sleep apnea syndrome 86021460 G47.33 Dr Tyson 08/10/2022 Proteinuria 28965884 R80 .9 On kerendiaLo w protein, more protein in diet and see nephrology Dr Ruiz 03/27/2024 Pain of le ft knee joint 5135546224 30337 M25.562 José Miguel Mcduffie PA 01/25/2024 , s/p kenalog Diarrhea 36385571 R19.7 Has stopped the metformin, ozempicHis opiates [...] : To get EGD and C-scope Neuropathy 528773071 G62 .9 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) Pruritic rash 01014099 L 28.2 Has noted a rash underneath the abdominal fold, none today, but has used clot-betam ethasone in the past with good reliefRene w the clotrimazo le-betamet hasone cream as needed Lesion of skin of face 3314759603 06 L98.9 Sees his dermatolog ist in [facility] hyperemic lesion noted on the L scalp and R mid neck Erectile dysfunction 860 326164 F52.21 On sildenafil Does well [id number] Rafael Mares MD [facility] [address] [place] [address] [place] [id number] 09/12/2024 13:53:44 09/12/2024 15:13:23 Urinary incontinence 656506279 R32 Benign pro static hyperplasia with outflow obstruction 639678538 N40.1 [id number] Tiana bryant MD [facility] [address] [facility] [address] [place] [address] 12/06/2024 09:01:34 12/06/2024 09:45:25 Screening - NAD 459084549 Z13.9 C-scope: As per Dr Spears, EGD/C-scop e: 08/17/2024 Get yearly flu shotGet TdapGet Shingrix vaccineGet PCV #20Get COVID 19 vaccineGet RSV vaccine RTC in 3 months, do labs ER if worse, he did verbalize his understand ing of the above Coronary arteriosclerosis 97892813 I25.10 ECHO 01/05/2024 : In a fibUS [...] 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.] Dr Wyman Obstructiv e sleep apnea syndrome 46237000 G47.33 Dr Tyson 08/10/2022 Proteinuria 24198925 R80 .9 On kerendiaLo w protein, more protein in diet and see nephrology Dr Ruiz 03/27/2024 Pain of le ft knee joint 2322781588 70914 M25.562 José Miguel PRASAD 01/25/2024 , s/p kenalog Diarrhea 86360882 R19.7 Has stopped the metformin, ozempicHis opiates [...] 12/06/2024 : Dr Spears 11/16/2024 OV Neuropathy 554872212 G62 .9 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) Pruritic rash 46109481 L 28.2 Has noted a rash underneath the abdominal fold, none today, but has used clot-betam ethasone in the past with good reliefRene w the clotrimazo le-betamet hasone cream as needed Lesion of skin of face 3762267617 06 L98.9 [place] hype[place] lesion noted on the L scalp and R mid neck Erectile dysfunction 860 100221 F52.21 On sildenafil Does well Paratrache al lymphadenopathy 97506717 R59.0 Dr Ruiz 11/01/2024 : f/u in [address] scan [id number] Rafael Mares MD [facility] [address] [address] 12/14/2024 15:01:37 12/14/2024 16:00:20 Urinary incontinence 913230968 R32 Benign pro static hyperplasia with outflow obstruction 696072207 N40.1 Health Concerns Section Related Observation LastModified by Organization Detai ls LastModified Time None Recorded Concern Status LastModified by Organization Details LastModified Time None Recorded Advance Directives Directive N: Payers Encounter Date Sequence Insurance Name Policy Number Policy Umana Covered Member ID Umana Member ID Guarantor Name 06/05/2024 1 [place] Mannie Nevarez [id number] Mannie Nevarez 06/05/2024 2 [place] [id number] Mannie Nevarez [id number] Mannie Nevarez 09/04/2024 1 [place] Mann[place] Nevarez [id number] Mannie Nevarez 09/04/2024 2 [place] [id number] Mannie Nevarez [id number] 22 Mannie Nevarez 09/12/2024 1 [place] Mannie Nevarez [id number] Mannie Nevarez 09/12/2024 2 [place] [id number] Mannie Nevarez [id number] 22 Mannie Nevarez 12/06/2024 1 [place] Mannie Nevarez [id number] 05 Mannie Nevarez 12/06/2024 2 [place] [id number] Mannie Nevarez [id number] 22 Mannie Nevarez 12/14/2024 1 [place] Mannie Nevarez [id number] 5 [id number] 05 Mannie Nevarez 12/14/2024 2 [place] [id number] Mannie Nevarez [id number] 22 Mannie Nevarez Notes Date Note Type [...] on 05/03/2024 Tiana Patterson MD [address], [address], [place], [address], [employer] [facility] [employer] 06/05/2024 15:48:10 09/04/2024 text/html OV 10/20/2023:He re [...] well today Tiana Patterson MD [address], [place], [address], [employer] [facility] [employer] 09/06/2024 18:53:52 09/12/2024 text/html this patient is [...] the day Rafael Mares MD [address], [place], [address], [employer] [facility] [employer] 09/12/2024 16:16:03 12/06/2024 text/html OV 10/20/2023:He re [...] Patterson MD [address], [place], [address], [employer] 12/06/2024 12:26:32 12/14/2024 text/html this patient has [...] is taking it Rafael Mares MD [address], [place], [address], [employer] 12/14/2024 16:12:44
--- OUTSIDE RECORDS SUMMARY | 2025-02-12 06:57 | XMS_ITS | Referral Summary ---
Author Organization [facility] Address [address] [place] [phone] Care Team Providers Care Aerial Survey Technician Name Role Phone Bennie Nova MD Primary Care Provider Encounters Date Type Department Care Team Description 02/11/2025 Orders Only [facility] Cardiology [address] [place] [address] [address] [place] [phone] Nereyda Hutchinson MD 02/06/2025 Anticoagulation Visit [facility] Cardiology [address] [place] [address] [address] [place] [phone] Hilda Robledo RN 02/05/2025 Orders Only [facility] Cardiology [address] [place] [address] [address] [place] [phone] Yessica Larios MD 02/05/2025 Telephone [facility] Cardiology [address] [place] [address] [address] [place] [phone] Jonah Momin MD 02/05/2025 9:15 AM CDT Office Visit [facility] Cardiology [address] [place] [address] [address] [place] [phone] Jonah Momin MD Atherosclerosis of [place] coronary artery of [place] heart without angina pectoris; Chronic atrial fibrillation, unspecified (HCC); Other thrombophilia (HCC) from Last 3 Months Allergies No known active allergies Medications empagliflozin (Jardiance) 10 mg tablet daily Active famotidine (Pepcid) 20 mg tablet TAKE 1 TABLET AT BEDTIME. Active pantoprazole DR (PROTONIX) 20 mg EC tablet 2 times daily 04/09/20 16 Active traMADoL (ULTRAM) 50 mg tablet TAKE 1 TABLET EVERY 4 TO 6 HOURS NEEDED FOR PAIN. Active warfarin (Coumadin) 7.5 mg tablet every other day 09/18/20 15 Active vitamin B complex capsule Take 1 capsule by mouth daily Active albuterol 2.5 mg/0.5 mL solution for [...] under the skin once a week Active atorvastatin (LIPITOR) 40 mg tablet Take 1 tablet (40 mg total) by mouth daily 90 tablet 02/06/20 026 Active ezetimibe (ZETIA) 10 mg tablet Take 1 tablet (10 mg total) by mouth daily 90 tablet 02/06/20 026 Active sacubitriL-valsa rtan (ENTRESTO) 97-103 mg tabletIndication s:chronic heart failure Take 1 tablet by mouth 2 (two) times a day 180 tablet 02/06/20 25 026 Active dipyridamole (PERSANTINE) 75 mg tablet Take 1 tablet (75 mg total) by mouth 4 (four) times a day 360 tablet 02/06/20 026 Active ALPRAZolam (XANAX) 1 mg tablet TAKE 1 TABLET 3 TIMES DAILY NEEDED. 09/18/20 15 025 Discontin ued(Thera py completed ) clopidogreL (Plavix) 75 mg tablet TAKE 1 TABLET twice a week. 025 Discontin ued(Thera py completed ) colchicine (Mitigare) 0.6 mg capsule daily Discontin ued(Thera py completed ) docusate sodium (Stool Softener) 100 mg capsule TAKE 1 CAPSULE 3 TIMES DAILY. Discontin ued(Thera py completed ) dutasteride-tams ulosin (Bibiana) 0.5-0.4 mg capsule, ER multiphase 24 hr daily Discontin ued(Thera py completed ) enoxaparin (LOVENOX) 120 mg/0.8 mL syringe INJECT 120 MG Twice daily beginning on 03/28/16, 03/29/16 and 03/30/16. INJECT 120 mg once daily in morning only on 03/31/16 03/18/20 16 025 Discontin ued(Thera py completed ) glipiZIDE XL (GLUCOTROL XL) 10 mg 24 hr tablet 2 times daily 025 Discontin ued(Thera py completed ) insulin lispro (HumaLOG) 100 unit/mL vial for injection sliding scale 09/18/20 15 025 Discontin ued(Thera py completed ) metFORMIN (GLUCOPHAGE) 1,000 mg tablet TAKE TABLET 1 tab po every 24 hours 025 Discontin ued(Thera py completed ) metoprolol tartrate (LOPRESSOR) 50 mg immediate release tablet every 12 hours 09/18/20 15 025 Discontin ued(Thera py completed ) multivitamin-min -iron-FA-vit K (Adults Multivitamin) 18 mg iron-400 mcg-25 mcg tablet daily 04/09/20 16 025 Discontin ued(Thera py completed ) rosuvastatin (Crestor) 10 mg tablet daily 025 Discontin ued(Thera py completed ) solifenacin (Vesicare) 10 mg tablet daily 09/18/20 15 025 Discontin ued(Thera py completed ) torsemide (DEMADEX) 20 mg tablet 2 times daily 025 Discontin ued(Thera py completed ) ursodioL (ACTIGALL) 300 mg capsule TAKE 1 CAPSULE 2 TIMES DAILY. 04/09/20 16 025 Discontin ued(Thera py completed ) atorvastatin (LIPITOR) 40 mg tablet Take 1 tablet (40 mg total) by mouth daily 025 Discontin ued(Reord er) dipyridamole (PERSANTINE) 75 mg tablet Take 1 tablet (75 mg total) by mouth 4 (four) times a day 025 Discontin ued(Reord er) ferrous sulfate 325 mg (65 mg of elemental iron) tabletIndication s:Iron Deficiency Anemia Take 1 tablet (65 mg of elemental iron total) by mouth 3 (three) times a day with meals 025 Discontin ued(Thera py completed ) sacubitriL-valsa rtan (ENTRESTO) 49-51 mg tabletIndication s:chronic heart failure Take 1 tablet by mouth 025 Discontin ued(Thera py completed ) nitroglycerin (NITROSTAT) 0.[address] 1 tablet (0.4 mg total) under the tongue every 5 (five) minutes as needed for chest pain 025 Discontin ued(Thera py completed ) Active Problems Problem Noted Date Diagnosed Date Chronic atrial fibrillation, unspecified Other thrombophilia 02/05/2025 Malabsorption 06/29/2016 History of bariatric surgery 03/04/2016 [...] on file Legal Sex 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 Gender Identity Not on file Sexual Orientation Not on file Last Filed Vital Signs Vital Sign Reading Time Taken Comments Blood Pressure 120/68 02/05/2025 8:57 AM CDT Pulse 85 02/05/2025 8:57 AM CDT Temperature 36.7 C (98.1 F) 08/17/2024 9:05 AM CDT Respiratory Rate 16 10/02/2024 12:46 PM EARTH SCIENCE TECHNICIAN Oxygen Saturation 97% 02/05/2025 8:57 AM CDT Inhaled Oxygen Concentration - - Weight 108.4 kg (239 lb) 02/05/2025 8:57 AM CDT Height 175.3 cm (5' 9 ) 02/05/2025 8:57 AM CDT Body Mass Index 35.29 02/05/2025 8:57 AM CDT Plan of Treatment Not on file Medical Devices Implanted Type Area Engineering Technician Device Identifier Shelf Expiration Date Model / Serial / Lot Pacemaker Pacemaker N/A: Heart Plate Plate Left: Knee Prosthetic Valve Prosthetic Valve Bilateral : Heart Procedures Procedure Name Priority Date/Time Associated Diagnosis Comments POCT LIPID PANEL Routine 02/05/2025 8:45 AM CDT Atherosclerosis of [place] coronary artery of [place] heart without angina pectoris ELECTROCARDIOGRAM REPORT Routine 02/05/2025 Chronic atrial fibrillation, unspecified (HCC) COLONOSCOPY 08/17/2024 8:17 AM CDT EGFR STAT 07/29/2023 10:21 AM CDT from Last 3 Months or Most Recently Relevant to Health Maintenance Results * POCT lipid panel (02/05/2025 8:45 AM CDT) Cholesterol, POC <100 mg/dL HDL, POC 43 mg/dL Triglycerides, POC 82 mg/dL LDL Cholesterol POC 39.6 mg/dL Chol/HDL Ratio, POC n/a Non-HDL Cholesterol, POC n/a mg/dL Cholesterol Total, POC <100 mg/dL Capillary blood 02/05/2025 8 :45 AM CDT us Jonha Momin MD POINT OF CARE TEST ORDERABLES Fi nal Result * Electrocardiogram Report (02/05/2025) 02/05/2025 us Jonah Momin MD ECG ORDERABLES Final Result * Colonoscopy (08/17/2024 8:17 AM CDT) Anatomical Region Laterality Modality Other Narrative Procedure Note Meryl Spears MD - 08/17/2024 8:17 AM CDT [facility] Patient Name: Reggie Nevarez Procedure Date: 08/17/2024 8:17 AM Date of : 1950 Admit Type: Outpatient Age: 74 Gender: Male Attending MD: Meryl Spears M.D. Room: [facility] ENDOSCOPY ROOM 05 Note Status: Finalized Procedure: [...] polypectomy, one hemostaticclip was successfully placed. Clip laserist: [employer]. Therewas no bleeding at the end of [...] Resected and retrieved. Clip was placed. Clip laserist: Game[employer]ell. - Diverticulosis in the left colon. Biopsied. - The distal rectum and anal verge are normal on retroflexion view. Recommendation: - Resume previous diet. - Continue present medications. - Await pathology results. Meryl Spears M.D. Meryl Spears M.D. 08/17/2024 9:11:17 AM . Number of Addenda: 0 Note Initiated On: 08/17/2024 8:17 AM Recognized by the [employer] for promoting quality [...] 1 AM CDT 07/29/2023 10:27 AM CDT us Benjy Webb MD LAB BLOOD ORDERABLES Final Result [facility] [address] from Last 3 Months or Most Recently Relevant to Health Maintenance Insurance MEDICARE [facility] MEDICARE [employer]UE [employer]OSS MEDICARE SUPPLEMENT MEDICARE [facility] [employer]OSS MEDICARE SUPPLEMENT Care Teams Aerial Survey Technician Relationship Specialty Start Date End Date Bennie Nova MD [address] [place] [address] PCP - General Cardiovascular Disease 06/02/21
--- OUTSIDE RECORDS SUMMARY | 2025-02-12 06:57 | XMS_ITS | Clinical Summary ---
Author Organization [facility] Address [address] [place] [address] Care Team Providers Care Cross Tie Turner Name Role Phone Unavailable Primary Care Provider [...] Vaccine ( - 2023-2 5 season) 2024 RSV Immunization or 60+ Years (1 [...] age to complete this topic Insurance MEDICARE [facility]
--- OUTSIDE RECORDS SUMMARY | 2025-02-12 06:57 | XMS_ITS | Data Portability ---
Author Organization [facility] Address [address] [address] Assessment No assessment recorded. Plan of Treatment [...] 50 mcg/0.25mL dose 12/12/2020 completed WAYNE Nuñez [place] - [place] 12/12/2020 14:14:04 COVID-19, mRNA, LNP-S, PF, 100 mcg/0.5mL dose or 50 mcg/0.25mL dose 01/12/2021 completed Emily Carmona MA [facility] SI 01/12/2021 16:25:39 Past Encounters Encounter ID Performer Location Encounter Start Date Encounter Closed Date Diagnosis/Indication Diagnosis SNOMED-CT Code Diagnosis ICD10 Code Diagnosis Note [id number] ISAI Valdez 14 IM [address] [place] [address] 12/12/2020 12:21:04 12/12/2020 18:38:06 Administration of SARS-CoV-2 antigen vaccine 135826879 Z23 [id number] ISAI Valdez 14 [address] [place] [address] 01/09/2021 12:02:47 01/12/2021 07:55:43 Administration of SARS-CoV-2 antigen vaccine 235054777 Z23 Health Concerns Section Related Observation LastModified by Organization Detai ls LastModified Time None Recorded Concern Status LastModified by Organization Details LastModified Time None Recorded Advance Directives Directive None Recorded Payers Encounter Date Sequence Insurance Name Policy Number Policy Umana Covered Member ID Umana Member ID Guarantor Name 12/12/2020 1 [place] Reggie Nevarez [id number] Reggie Nevarez 12/12/2020 2 [place] [id number] Reggie Nevarez [id number] Reggie Nevarez 01/09/2021 1 [place] Reggie Nevarez [id number] Reggie Nevarez 01/09/2021 2 [place] [id number] Reggie Nevarez [id number] Reggie Nevarez
--- OUTSIDE RECORDS SUMMARY | 2025-02-12 06:57 | XMS_ITS ---
Author Organization [facility] Address [address] [place] [address] [place] [address] Care Team Providers Care Edi Coordinator Name Role Phone Nhan Gigi Unavailable [phone] SOCIAL HISTORY Sex Assigned At : Social History Observation Description Sex Assigned At Male Encounters Encounter Location Date Provider Diagnosis [place] [facility] [address] [facility] [address] [place] [address] 12/26/2024 Gigi Justin PLAN OF TREATMENT Next Appt Details Provider Name:Gigi Justin , 02/13/2025 04:15:00 PM, [address] [facility], [facility] [address], [place], [address], Progress Notes * MANNIE CABELLODOB:1950 ( 75 yo F)Acc No.[id number]:12/26/2024 Progress Notes Patient: MANNIE CABELLO Provider: MD DENY, Brandon.Jose.C.P, F.A.S.N. :1950 Age:74 Y Sex:Female Date:12/26/2024 Address:[address] [place], [place] [address] [address], [place] [address] Subjective: * Chief Complaints: * * Medical History: Objective: Assessment: Plan: * Treatment: * Billing Information: * Visit Code: * Procedure Codes: * Sign off status: Pending * Provider: MD DENY, Brandon.Jose.C.P, F.A.S.N. Date: 12/26/2024
--- OUTSIDE RECORDS SUMMARY | 2025-02-12 06:57 | XMS_ITS | Clinical Summary ---
Author Organization [facility] Address [address] [place] [address] Care Team Providers Care Valve Tester Name Role Phone Bennie Nova MD Primary Care Provider [phone] Allergies No known active allergies Medications empagliflozin [...] mg total) by mouth daily 90 tablet 3 02/06/20 25 Active ezetimibe (ZETIA) 10 mg tablet Take 1 tablet (10 mg total) by mouth daily 90 tablet 3 02/06/20 25 Active sacubitriL-valsa rtan (ENTRESTO) 97-103 mg tabletIndication s:chronic heart failure Take 1 tablet by mouth 2 (two) times a day 180 tablet 3 02/06/20 25 Active dipyridamole (PERSANTINE) 75 mg tablet Take 1 tablet (75 mg total) by mouth 4 (four) times a day 360 tablet 3 02/06/20 Active ALPRAZolam (XANAX) 1 mg tablet TAKE 1 TABLET 3 TIMES DAILY NEEDED. 09/18/20 15 025 Discontin ued(Thera py completed ) clopidogreL (Plavix) 75 mg tablet TAKE 1 TABLET twice a week. 025 Discontin ued(Thera py completed ) colchicine (Mitigare) 0.6 mg capsule daily 025 Discontin ued(Thera py completed ) docusate sodium (Stool Softener) 100 mg capsule TAKE 1 CAPSULE 3 TIMES DAILY. 025 Discontin ued(Thera py completed ) dutasteride-tams ulosin (Bibiana) 0.5-0.4 mg capsule, ER multiphase 24 hr daily 025 Discontin ued(Thera py completed ) enoxaparin (LOVENOX) [...] ) rosuvastatin (Crestor) 10 mg tablet daily Discontin ued(Thera py completed ) solifenacin (Vesicare) 10 mg tablet daily 09/18/20 15 025 Discontin ued(Thera py completed ) torsemide (DEMADEX) 20 mg tablet 2 times daily Discontin ued(Thera py completed ) ursodioL (ACTIGALL) 300 mg capsule TAKE 1 CAPSULE 2 TIMES DAILY. 04/09/20 16 025 Discontin ued(Thera py completed ) atorvastatin (LIPITOR) 40 mg tablet Take 1 tablet (40 mg total) by mouth daily Discontin ued(Reord er) dipyridamole (PERSANTINE) 75 mg tablet Take 1 tablet (75 mg total) by mouth 4 (four) times a day Discontin ued(Reord er) ferrous sulfate 325 mg (65 mg of elemental iron) tabletIndication s:Iron Deficiency Anemia Take 1 tablet (65 mg of elemental iron total) by mouth 3 (three) times a day with meals Discontin ued(Thera py completed ) sacubitriL-valsa rtan [...] Date Diagnosed Date Chronic atrial fibrillation, unspecified 025 Other thrombophilia 02/05/2025 Malabsorption 06/29/2016 History of bariatric surgery 03/04/2016 Eating disorder, unspecified 09/30/2015 Chronic coronary artery disease 09/18/2015 Diabetes mellitus 09/18/2015 Benign essential hypertension 09/18/2015 Obstructive sleep apnea syndrome 09/18/2015 Morbid obesity 09/18/2015 Arthritis 05/01/2015 Encounters Date Type Department Care Team Description 02/11/2025 Orders Only [facility] Cardiology [address] [place] [address] [place] [address] [phone] ProviderNereyda MD 02/06/2025 Anticoagulation Visit [facility] Cardiology [address] [place] [address] [place] [address] [phone] Hilda Robledo RN 02/05/2025 9:15 AM CDT Office Visit [facility] Cardiology [address] [place] [address] [address] [place] [address] [phone] Jonah Momin MD Atherosclerosis of [place] coronary artery of [place] heart without angina pectoris; Chronic atrial fibrillation, unspecified (HCC); Other thrombophilia (HCC) 02/05/2025 Orders Only [facility] Cardiology [address] [place] [address] [address] [place] [phone] Yessica Larios MD 02/05/2025 Telephone [facility] Cardiology [address] [place] [address] [address] [place] [address] [phone] Jonah Momin MD from Last 3 Months Surgical History Surgery Date Site/Laterality Comments BARIATRIC [...] on file Legal 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 Gender Identity Not on file Sexual Orientation Not on file Obstetrics History Last Filed Vital Signs Vital Sign Reading Time Taken Comments Blood Pressure 120/68 02/05/2025 8:57 AM CDT Pulse 85 02/05/2025 8:57 AM CDT Temperature 36.7 C (98.1 F) 08/17/2024 9:05 AM CDT Respiratory Rate 16 10/02/2024 12:46 PM VACCINE CUSTOMER REPRESENTATIVE Oxygen Saturation 97% 02/05/2025 8:57 AM CDT Inhaled Oxygen Concentration - - Weight 108.4 kg (239 lb) 02/05/2025 8:57 AM CDT Height 175.3 cm (5' 9 ) 02/05/2025 8:57 AM CDT Body Mass Index 35.29 02/05/2025 8:57 AM CDT Plan of Treatment Health Maintenance Due Date [...] of 2) 01/30/2000 Well Visit 65+ 2015 eGFR 07/29/2024 07/29/2023 Influenza Vaccine (Season Ended) 2025 09/22/20 20 Lipid Panel 02/05/2026 02/05/2025, 04/02/2016 Colon Cancer Screening-Colonoscopy 08/17/20342023 Medical Devices Implanted Type Area Interactive Producer Device Identifier Shelf Expiration Date Model / Serial / Lot Pacemaker Pacemaker N/A: Heart Plate Plate Left: Knee Prosthetic Valve Prosthetic Valve Bilateral : Heart Procedures Procedure Name Priority Date/Time Associated Diagnosis Comments POCT LIPID PANEL Routine 02/05/2025 8:45 AM CDT Atherosclerosis of [place] coronary artery of [place] heart without angina pectoris ELECTROCARDIOGRAM REPORT Routine [...] blood 02/05/2025 8 :45 AM CDT us Jonah Momin MD POINT OF CARE TEST ORDERABLES Fi nal Result * Electrocardiogram Report (02/05/2025) 02/05/2025 us Jonah Momin MD ECG ORDERABLES Final Result * Colonoscopy (08/17/2024 8:17 AM CDT) Anatomical Region Laterality Modality Other Narrative Procedure Note Meryl Spears MD - 08/17/2024 8:17 AM CDT [facility] Patient Name: Reggie Nevarez Procedure Date: 08/17/2024 8:17 AM Date of : 1950 Admit Type: Outpatient Age: 74 Gender: Male Attending MD: Meryl Spears M.D. Room: [facility] ENDOSCOPY ROOM 05 Note Status: Finalized [...] polypectomy, one hemostaticclip was successfully placed. Clip professor of practice: Ofuz. Therewas no bleeding at the end of [...] Resected and retrieved. Clip was placed. Clip professor of practice: Ofuz. - Diverticulosis in the left colon. Biopsied. - The distal rectum and anal verge are normal on retroflexion view. Recommendation: - Resume previous diet. - Continue present medications. - Await pathology results. Meryl Spears M.D. Meryl Spears M.D. 08/17/2024 9:11:17 AM . Number of Addenda: 0 Note Initiated On: 08/17/2024 8:17 AM Recognized by the [place] [employer] for promoting quality in endoscopy Meryl Spears MD ENDOSCOPY PROCEDURES [place] Result * eGFR (07/29/2023 10:21 AM CDT) eGFR >90 90 - 130 mL/min/1. 73 m2 [facility] Comment: Interpretive Data Reference Interval Normal [...] Webb MD LAB BLOOD ORDERABLES Final Result [facility] Department [place] [address] from Last 3 Months or Most Recently Relevant to Health Maintenance Insurance MEDICARE [facility] MEDICARE [employer]UE [employer] MEDICARE SUPPLEMENT MEDICARE [facility] MEDICARE SUPPLEMENT Care Teams Valve Tester Relationship Specialty Start Date End Date Bennie Nova MD [address] [phone] PCP - General Cardiovascular Disease 06/02/21
--- OUTSIDE RECORDS SUMMARY | 2025-02-12 06:57 | XMS_ITS | Encounter Summary ---
Author Organization [facility] Address [address] [place] [address] Care Team Providers Care Director Of Tax Services Name Role Phone Bennie Nova MD Primary Care Provider Alison ilfrancisco javier Encounter Details Date Type Department Care Team (Late st Contact Info) Description 11/21/2019 Lab Requisition [facility] [address] [facility] [place] [address] Hali Fletcher DO [address] [facility] [address] [place] [phone] Social History Tobacco Use Types Packs/Day Years [...] Comments DERMATOPATHOLOGY Routine 11/20/2019 12:0 0 AM TIMBER SUPERVISOR documented in this encounter Results * DERMATOPATHOLOGY (11/20/2019 12:00 AM TIMBER SUPERVISOR) Case Report Dermatopathology Report Case: [id number] Authorizing Provider: Hali Fletcher DO Collected: 11/20/2019 12:00 AM Ordering Location: [facility] Lab Received: 11/21/2019 01:31 PM Pathologist: Warner Garcia MD Specimen: Skin, left yarsani 0 7:23 PM [facility] DERMATOPATHOLOGY LABORATORY Final Diagnosis Specimen A. SKIN, left yarsani: SQUAMOUS CELL CARCINOMA, WELL DIFFERENTIATED (C44.329) 0 7:23 PM TIMBER SUPERVISOR DERMATOPATHOLOGY LABORATORY Clinical History R/O NMSC, non-healing. 0 7:23 PM TIMBER SUPERVISOR DERMATOPATHOLOGY LABORATORY Gross Description Specimen A: Received is one formalin filled container labeled with the patient's name and designated left yarsani. The specimen consists of a shave measuring [id number]. Jar 0. 0 7:23 PM [facility] DERMATOPATHOLOGY LABORATORY Microscopic Description Specimen A. SKIN, left yarsani: Arising in the epidermis and extending into the dermis there are irregularly shaped aggregates of keratinocytes showing evidence of premature cornification. 0 7:23 PM TIMBER SUPERVISOR DERMATOPATHOLOGY LABORATORY Disclaimer An external and internal positive and negative controls are appropriate for the histochemical, immunohistochemical and immunofluorescence stain(s) in this case (if any), except where stated explicitly. The performance characteristics of the stain(s) cited in this report were developed and its performance characteristic determined by the Dermatopathology Laboratory at [facility], directed by Dr. Luba Garcia. These tests need not be, and therefore are not, approved by the [place] Food and Drug Administration. The tests are used for clinical purposes. Billing Codes Specimen Charges Stain Charges 64952 1 0 7:23 PM TIMBER SUPERVISOR DERMATOPATHOLOGY LABORATORY Embedded Images 0 7:23 PM TIMBER SUPERVISOR DERMATOPATHOLOGY LABORATORY Pathology/Cytolog y TISSUE SPECIMEN FROM SKIN / Unknown 11/20/2019 11/21/2019 1:31 PM TIMBER SUPERVISOR Hali Fletcher DO LAB - PATHOLOGY/C YTOLOGY ORDERABLES DERMATOPATHOLOGY LABORATORY [facility] - Department of Dermatology [address] [place] [address], [address] [phone] documented in this encounter Visit Diagnoses Not on filedocumented in this encounter Care Teams Director Of Tax Services Relationship Specialty Start Date End Date Bennie Nova MD PCP - General Internal Medicine 10/10/12 documented as of this encounter
[2025-02-12 08:28] LABS: Basophils Percent Auto 0.1 % (0.2-1.2); Eosinophils Percent Auto 0.1 % (0-4.4); Hematocrit 44.1 % (42.0-52.0); Hemoglobin 13.8 g/dL (14.0-18.0); Immature Granulocyte Absolute 0.02 K/mm3 (0.00-0.031); Immature Granulocyte Percent A 0.2 % (0-0.5); Lymphocytes Absolute Auto 0.88 K/mm3 (0.9-3.2); Lymphocytes Percent Auto 10.6 % (18.3-44.2); Mean Corpuscular HGB Conc 31.3 g/dl (32-36); Mean Corpuscular Hemoglobin 29.4 pg (26-34); Mean Corpuscular Volume 93.8 fl (80-100); Monocytes Absolute Auto 0.7 K/mm3 (0.1-0.6); Neutrophils Absolute Auto 6.8 K/mm3 (1.3-6.7); Platelet Count Result 160 k/mm3 (150-375); Red Cell Distribution Width 14.6 % (11.5-14.5); White Blood Count 8.3 K/mm3 (4.5-10.0)
[2025-02-12 08:35] LABS: Alanine Aminotransferase 14 U/L (6-50); Albumin Level 4.1 g/dL (3.5-5.1); Alkaline Phosphatase 57 U/L (38-126); Anion Gap 9 mmol/L (4-12); Aspartate Amino Transferase 18 U/L (17-59); Bilirubin,Total 1.1 mg/dL (0.2-1.3); Blood Urea Nitrogen 16 mg/dL (9-20); Calcium 8.9 mg/dL (8.4-10.2); Carbon Dioxide 24 mmol/L (22-30); Chloride 107 mmol/L (98-107); Estimated Glomerular Filt Rate > 60; Glucose 104 mg/dL (65-110); Sodium 140 mmol/L (137-145); Uric Acid 4.8 mg/dL (3.5-8.5)
[2025-02-12 08:59] LABS: Thyroid Stimulating Hormone 0.824 uIU/mL (0.465-4.680)
[2025-02-12 09:50] LABS: Parathyroid Intact 62.4 pg/mL (14.5-75.2)
[2025-02-12 09:55] LABS: Vitamin D 25 Hydroxy 38.6 ng/mL
[2025-02-12 09:56] LABS: Creatinine Urine 158.2 mg/dL
[2025-02-12 09:58] LABS: MALB Creatinine Ratio 35.1 mg/g (0-30); Microalbumin Urine Random 55.5 mg/L (0-16.7)
[2025-02-12 17:45] LABS: Add Urine Microscopic? YES; Appearance Urine Clear (Clear); Bacteria Urine None Seen /hpf; Bilirubin Urine Negative (Negative); Blood Urine Negative (Negative); Color Urine Yellow (Yellow); Glucose Urine UA 3+ mg/dL (Negative); Ketones Urine Trace mg/dL (Negative); Leukocyte Esterase Ur Negative LEU/UL (Negative); Nitrate Urine Negative (Negative); Non Pathogenic Casts 0-2; Protein Urine Trace mg/dL (Negative); RBC Urine 0-2 /hpf (0-2); Specific Grav Ur 1.037 (1.001-1.035); Squamous Epithelial Cell Urine None Seen /hpf (Few); Urobilinogen Urine 0.2 mg/dL (<2.0); WBC Urine 0-5 /hpf (0-3)
== END 2025-02-12 06:48 | disposition home or self-care (01) ==
PROVIDERS: PCP Internal Medicine; Visit Provider Specialist
DX: I12.9 Hypertensive chronic kidney disease with stage 1 through stage 4 chronic kidney disease, or unspecified chronic kidney disease (principal); N18.2 Chronic kidney disease, stage 2 (mild); E55.9 Vitamin D deficiency, unspecified; N39.0 Urinary tract infection, site not specified; R35.0 Frequency of micturition; R73.09 Other abnormal glucose; E78.41 Elevated Lipoprotein(a); E21.3 Hyperparathyroidism, unspecified; R94.6 Abnormal results of thyroid function studies
CPT/HCPCS: 36415; 80053; 81001; 82043; 82306; 83970; 84443; 84550; 85025

== ENCOUNTER 2025-04-09 09:02 | Outpatient (CLI) | payer MEDICARE, SELFPAY ==
--- OUTSIDE RECORDS SUMMARY | 2025-04-09 09:11 | XMS_ITS | Clinical Summary ---
Author Organization [facility] [place] Address [address] [place] [address] Care Team Providers Care Wall Insulation Sprayer Name Role Phone Tiana Patterson MD Primary [...] 1 Tablet by mouth daily. 4 Active ergocalciferol (VITAMIN D2) 50,000 unit [...] BY MOUTH ONCE OR TWICE DAILY NEEDED Active pantoprazole (PROTONIX) 40 mg Tablet, Delayed [...] Encounters Date Type Department Care Team Description 04/02/2025 External Device Data [facility] ABSTRACTION Provider, Abstract 03/28/2025 External Device Data [place] ABSTRACTION Provider, Abstract 03/27/2025 External Device Data [place] ABSTRACTION Provider, Abstract 03/26/2025 External Device Data [place] ABSTRACTION Provider, Abstract 02/08/2025 11:30 AM CDT Office Visit [facility] Oncology and Hematology - [place] [address] [place] [address] Tommy Ruiz MD Lymphadenopathy (Primary Dx) 01/30/2025 Orders Only [facility] Oncology and Hematology - [place] [address] [place] [address] Tommy Ruiz MD from Last 3 Months Family History Medical [...] on file Legal Sex Male 3:06 PM [place] Gender Identity Not on file Sexual Orientation [...] 11:06 AM CDT Height 177.8 cm (5' 10) 11/01/2024 11: 29 AM [place] Body Mass Index 33.69 11/01/2024 11:29 AM [place] Plan of Treatment Upcoming Encounters Date Type Department Care Team (Late st Contact Info) Description 05/14/2025 11:45 AM CDT Office Visit [facility] Oncology and Hematology - [place] [address] [facility] [address] [place] [address] Tommy Ruiz MD [address] [facility] [address] [place] [address] Health Maintenance Due Date Last [...] METABOLIC PANEL (2025 2:42 PM CDT) Blood Tommy Ruiz MD CHEMISTRY ORDERABLES Final Resu lt * CT CHEST ABDOMEN PELVIS W CONT (2025 9:00 AM CDT) Anatomical Region Laterality Modality Chest Computed Tomogra phy Tommy Ruiz MD CT ORDERABLES Final Result from Last 3 Months Insurance [address] [place] [address] MEDICARE PART A AND B [facility] Care Teams Wall Insulation Sprayer Relationship Specialty Start Date End Date Tiana Patterson MD [address] [place] [address] [address] [place] [phone] PCP - General Internal Medicine 11/02/24
--- OUTSIDE RECORDS SUMMARY | 2025-04-09 09:12 | XMS_ITS ---
Author Organization [facility] Address [address] [place] [address] [place] [address] Care Team Providers Care Manufacturing Sales Representative Name Role Phone Nhan Gigi Unavailable [phone] Social History Sex Assigned At : Social History Observation Description Sex Assigned At Male Problems Problem Type SNOMED Code ICD Code Onset Dates Problem Status W/U Status Risk Notes Problem Chronic kidney disease, stage 2 (mild) (N18.2) Active confirmed Encounters Encounter Location Date Provider Diagnosis [place] Office [address] [facility] [address] [place] [address] 01/02/2025 Gigi Justin Chronic kidney disea se, [...] Next Appt Details Provider Name:Gigi Justin , 06/12/2025 02:30:00 PM, [address] [place] [facility], [place], [address], Progress Notes * MANNIE CABELLODOB:1950 ( 75 yo F)Acc No.[id number]:01/02/2025 Progress Notes Patient: MANNIE APARICIO Provider: Nayeli MAE MD, F.A.C.P, F.A.S.N. :1950 A ge:74 Y S ex:Female Date:01/02/2025 Address:[address] [place] [address], [place], [place] Subjective: * Chief Complaints: * * Medical [...] Treatment: * Billing Information: * Visit Code: 70415 Office Visit, Est Pt., Level 4. * Procedure Codes: * Electronic signature of Fox Justin MD on 04/09/2025 at 09:11 AM CDT Sign off status: Pending * Provider: Nayeli MAE MD, Brandon.Jose.C.P, F.A.S.N. Date: 0 01/02/2025 Generated for Printing/Faxing/eTransmitting on: 0 04/09/2025 09:11 AM CDT
--- OUTSIDE RECORDS SUMMARY | 2025-04-09 09:12 | XMS_ITS | Clinical Summary ---
Author Organization [facility] Address [address] [facility] [address] Care Team Providers Care Life Skills Teacher Name Role Phone Bennie Nova MD Primary Care Provider Alison jeronimo Source Comments [facility],non-owned Affiliates and Associated Physician Practices is amultiple site organization consisting of ambulatory clinics and hospital sitesin [place], [place], [place] and [place]. This disclosure is being madepursuant to the Care Everywhere program and may not contain all information available regarding this patient. Last updated 18.[facility] [employer] Allergies No known active allergies Medications * Be aware that medications may not be up to date on this document. Alwaysverify current medications with the patient. clopidogrel (PLAVIX) 75 MG tablet Take 75 mg by mouth Two times a week. Active warfarin (COUMADIN) 5 MG tablet Take 5 mg by mouth once daily. 1.5- 2 tabs Active pioglitazone-me tformin (ACTOPLUS MET) 15-850 MG tablet Take 1 [...] mouth 3 times daily as needed. Active hydrocodone-missy taminophen (LORTAB) 10-500 MG tablet Take 1 Tab by mouth every 4 hours as needed. Active Social History Tobacco Use Types Packs/Day Years Used Date Smoking Tobacco: Never Alcohol Use Standard Drinks/Week Comments Not Asked 0 (1 standard drink = 0.6 oz pur e alcohol) Sex and Gender Information Value Date Recorded Sex Assigned at Not on file Legal Sex Male 10:01 AM HEALTHCARE MANAGER Gender Identity Not on file Sexual Orientation Not on file Last Filed Vital Signs Vital Sign Reading Time Taken Comments Blood Pressure 182/85 10/09/2012 3:10 PM HEALTHCARE MANAGER Pulse 70 10/09/2012 3:10 PM HEALTHCARE MANAGER Temperature 36.7 C (98.1 F) 12/29/2010 11:35 AM HEALTHCARE MANAGER Respiratory Rate 16 12/29/2010 11:35 AM HEALTHCARE MANAGER Oxygen Saturation - - Inhaled Oxygen Concentration - - Weight 173.3 kg (382 lb) 10/09/2012 3:10 PM HEALTHCARE MANAGER Height 177.8 cm (5' 10) 10/09/2012 3:10 PM HEALTHCARE MANAGER Body Mass Index 54.81 10/09/2012 3:10 PM HEALTHCARE MANAGER Plan of Treatment Health Maintenance Due Date [...] VACCINE (1 of 2) 01/30/2000 COVID-19 VACCINE (1 - 2023-2 5 season) 2024 DEPRESSION SCREENING 11/07/2024 Respiratory [...] patient's age to complete this topic Insurance [facility] MEDICARE [facility] BLUE [facility] ANTHEM ANTHEM MEDICARE Care Teams Life Skills Teacher Relationship Specialty Start Date End Date Bennie Nova MD PCP - General Internal Medicine 10/10/12
--- OUTSIDE RECORDS SUMMARY | 2025-04-09 09:12 | XMS_ITS | Continuity of Care Document ---
Author Organization [facility] [place] Address [address] [place] [address] [place] [address] Phone Care Team Providers Care Irrigation District Manager Name Role Phone Hoa Gonzalez Unavailable Unavailable Procedures Procedure Date Eye Exam & Treatment Refraction Eye Exam & Treatment Eye Exam & Treatment Refraction Advance Directives Directive Yes / No Effective Date File Name No Information Encounters Encounter Description Practice Location Reason(s) For Visit Diagnoses Date Provider Providers Copied on Encounter [facility], [address] [place] [address] [address], [place], [place], [id number], tel:[phone] [facility] [place] No Information Jan- 4-201 0 Lisa Solitario [address] , [address], [place], [place], [facility], [place]. tel:[phone] [facility], [address] [place] [address] [address], [place], [place], [id number], [place] tel:[phone] [facility] [place] No Information 9-200 9 Lisa Solitario [address], [place], [place], [facility], [place]. tel:[phone] [facility], [address] [place] [address] [address], [place], [place], [id number], tel:[phone] [facility] [place] No Information 7200 7 Lisa Camara. [address], [place], [address], [place]. tel:[phone] Family History Family Member Type Diagnosis Age At Onset No Information Payers Payer name Insurance type Covered republican ID Authorheidy guerrero(s) [facility] Out Of State [id number] Social History Type Description Quantity Date Captured [...]
--- OUTSIDE RECORDS SUMMARY | 2025-04-09 09:12 | XMS_ITS | Data Portability ---
Author Organization [place] - [facility] [employer], Main Office Address [address] [place] [address] Care Team Providers Care Physician Office Nurse Name Role Phone NAHED PATTERSON Primary Care Provider [phone] NAHED PATTERSON Referring Provider [phone] STELLA WYMAN Senior Treasury Analyst GIGI RUIZ Loader Operator/Ground Leader Assessment Encounter Date Assessment Date Assessment LastModified [...] available Lab urinalysi s, dipstick 2024 025 [facility], [address] [facility] [address], [place], [address], 12/17/2024 10:49:09 lipid panel, serum [email or web address] (Lab), [address] [place], [address], 12/06/2024 09:45:12 CBC w/ auto diff 2024 025 [facility] (Lab), [address] [place], [address], 2025 13:52:13 CMP, serum or plasma 2024 025 ROSA [facility] (Lab), [address] [place], [address], 2025 13:52:13 TSH, serum or plasma [address] (Lab), [address] [place], [address], 12/06/2024 09:45:13 vitamin D, 25-hydrox y, total, serum [address] (Lab), [address] [place], [address], 12/06/2024 09:45:13 glycohemo globin, total, blood [address] (Lab), [address] [place], [address], 12/06/2024 09:45:12 microalbu min, urine [address] (Lab), [address] [place], [address], 12/06/2024 09:45:12 lipid panel, serum [address] (Lab), [address] [place], [address], 03/04/2025 14:07:45 CBC w/ auto diff [address] (Lab), [address] [place], [address], 03/04/2025 14:07:46 CMP, serum or plasma [address] (Lab), [address] [place], [address], 03/04/2025 14:07:46 TSH, serum or plasma [address] (Lab), [address] [place], [address], 03/04/2025 14:07:46 vitamin D, 25-hydrox y, total, serum [address] (Lab), [address] [place], [address], 03/04/2025 14:07:46 glycohemo globin, total, blood [address] (Lab), [address] [place], [address], 03/04/2025 14:07:45 microalbu min, urine [address] (Lab), [address] [place], [address], 03/04/2025 14:07:45 lipid panel, serum 2023 024 [facility] (Lab), [address] [place], [address], 07/02/2024 14:54:00 CBC w/ auto diff 2023 024 [facility] (Lab), [address] [place], [address], 07/02/2024 14:34:27 CMP, serum or plasma 2023 024 [facility] (Lab), [address] [place], [address], 08/31/2024 11:43:26 TSH, serum or plasma 2023 024 [facility] (Lab), [address] [place], [address], 08/31/2024 12:03:05 vitamin D, 25-hydrox y, total, serum 2023 024 [email or web address] [facility] (Lab), [address] [place], [address], 12/03/2024 12:43:14 glycohemo globin, total, blood 2023 024 [facility] (Lab), [address] [place], [address], 09/03/2024 14:39:57 microalbu min, urine 2023 024 [facility] (Lab), [address] [place], [address], 08/31/2024 11:40:26 Referral nephrolog ist referral - Please call patient to schedule an appointme nt. Thank you. 2024 025 [email or web address] Gigi Ruiz MD (Nephrology, [address] [facility], [address], [place], [address], 01/15/2025 18:05:31 pulmonolo gist referral - Please call patient to schedule an appointme nt. Thank you. 2024 025 Pham Aldridge DINKEY ENGINE MECHANIC-C, [address] [facility], [facility] [address], [place], [address], 02/12/2025 08:48:37 urologist referral - Please call patient to schedule an appointme nt. Thank you. 2024 025 [email or web address] Rafael Mares, [address] [facility], [facility] [address], [place], [address], 12/10/2024 15:04:30 podiatris t referral - Please call patient to schedule an appointme nt. Thank you. ( I believe this patient is already being followed by your office) 2024 025 FLETCHER Wu DPM, [address], [address], [place], [address], 12/10/2024 14:50:39 cardiolog ist referral - Please call patient to schedule an appointme nt. Thank you. 2024 025 ROSA Birmingham MD, [address], [address], [place], [address], 04/09/2025 04:27:06 nephrolog ist referral 2023 024 tammy Ruiz MD (Nephrology, [address], [address], [place], [address], 09/10/2024 10:02:41 pulmonolo gist referral - Please call patient to schedule. 2023 024 [email or web address] Pham Aldridge DINKEY ENGINE MECHANIC-C, [address] [facility], [address], [place], [address], 09/21/2024 13:26:19 urologist referral - Please call patient to schedule. 2023 024 ROSA Mares, [address] [facility], [facility] [address], [place], [address], 09/12/2024 16:30:27 podiatris t referral - Please call patient to schedule. 2023 024 [email or web address] Wu [employer], [address], [address], [place], [address], 11/15/2024 09:52:52 cardiolog ist referral 2023 024 tammy Wyman MD, [address] [facility], [address], [place], [address], 09/10/2024 10:02:41 nephrolog ist referral 2023 024 [email or web address] Gigi Ruiz MD (Nephrology, [address], [address], [place], [address], 12/03/2024 12:43:33 pulmonolo gist referral 2023 024 [email or web address] Jorge Tyson MD, [address] [facility], [place], [address], 10/25/2024 18:26:15 podiatris t referral 2023 024 [email or web address] Marcelino Wu DPM, [address], [address], [place], [address], 10/25/2024 18:24:16 cardiolog ist referral 2023 024 [email or web address] Stella Wyman MD, [address] [facility], [address], [place], [address], 10/25/2024 18:24:43 Procedures None recorded. Surgeries None recorded. Imaging None recorded. Medication Orders tamsulosi n 0.4 mg capsule 2024 025 [facility]/Pharmacy #[id number], [address], [place], [address], 12/14/2024 16:12:42 tamsulosi n 0.4 mg capsule 2023 024 [facility]/Pharmacy #[id number], [address], [place], [address], 06/05/2024 15:26:30 Patient TargetsNo targets recorded. Patient Instructions Encounter Date Encounter Id Patient Instructions Last Modified By Organization Details Last Modified Time 09/12/2024 [id number] 1. The patient i s already taking tamsulosin and finasteride 2. I really do not think there is anything I can offer except limit his fluids but otherwise no other recommendations and just follow up as needed Not available 09/12/2024 16:15:42 12/14/2024 [id number] 1. BPH with obstruction 2. I will increase his tamsulosin to 2 capsules a day he will take it at 6:00 p.m. 3. He can either have his primary care refill the prescription or he can come back here in 1 year Not available 12/14/2024 16:12:13 Reason for Referral Senior Technical Support Analyst Referral for Type 2 diabetes mellitus without complication Referring Physician: Nahed Patterson Internal Medicine, Encounter Date: 06/05/2024 Senior Treasury Analyst Referral for Co ronary arteriosclerosis Referring Physician: Nahed Patterson Internal Medicine, Encounter Date: 06/05/2024 Personal Loan Specialist Referral for O bstructive sleep apnea syndrome Referring Physician: Bernard Lieberman Medicine, Encounter Date: 06/05/2024 Loader Operator/Ground Leader Referral for Pr oteinuria Referring Physician: Nahed Patterson Internal Medicine, Encounter Date: 06/05/2024 Senior Technical Support Analyst Referral for Type 2 diabetes mellitus without complication Please call patient to schedule. Referring Physician: Bernard Lieberman, Encounter Date: 09/04/2024 Senior Treasury Analyst Referral for Co ronary arteriosclerosis Referring Physician: Bernard Lieberman, Encounter Date: 09/04/2024 Personal Loan Specialist Referral for O bstructive sleep apnea syndrome Please call patient to schedule. Referring Physician: Nahed Patterson Internal Medicine, Encounter Date: 09/04/2024 Loader Operator/Ground Leader Referral for Pr oteinuria Referring Physician: Bernard Lieberman Medicine, Encounter Date: 09/04/2024 Urologist Referral for Urina ry incontinence Please call patient to schedule. Referring Physician: Bernard Lieberman, Encounter Date: 09/04/2024 Senior Technical Support Analyst Referral for Type 2 diabetes mellitus without complication Please call patient to schedule an appointment. Thank you. ( I believe this patient is already being followed by your office) Referring Physician: Nahed Patterson, Internal Medicine, Encounter Date: 12/06/2024 Senior Treasury Analyst Referral for Co ronary arteriosclerosis Please call patient to schedule an appointment. Thank you. Referring Physician: Nahed Patterson, Internal Medicine, Encounter Date: 12/06/2024 Personal Loan Specialist Referral for O bstructive sleep apnea syndrome Please call patient to schedule an appointment. Thank you. Referring Physician: Nahed Patterson, Internal Medicine, Encounter Date: 12/06/2024 Loader Operator/Ground Leader Referral for Pr oteinuria Please call patient to schedule an appointment. Thank you. Referring Physician: Nahed Patterson, Internal Medicine, Encounter Date: 12/06/2024 Urologist Referral for Urina ry incontinence Please call patient to schedule an appointment. Thank you. Referring Physician: Nahed Patterson, Internal Medicine, Encounter Date: 12/06/2024 Results Created Date Observation Date Name Description Value Unit Range Abnormal Flag Note LastModifiedBy Organization Detail LastModifiedTime 08/31/2008/31/2024 CBC/C OMPLE TE BLD COUNT W/DIF F white blood cells 7.4 x10'3 /uL 4.2-10 .8 Not Available [facility] (Lab) [address] [place], [address], 08/31/2024 11:18:30 08/31/20 24 08/31/2024 CBC/C OMPLE TE BLD COUNT W/DIF F red blood cells 4.90 x10'6 /uL 4.10-5 .80 Not Available [facility] (Lab) [address] [place], [address], 08/31/2024 11:18:30 08/31/20 24 08/31/2024 CBC/C OMPLE TE BLD COUNT W/DIF F hemoglobin 14.9 g/dL 13.2-1 7.0 Not Available [facility] (Lab) [address] [place], [address], 08/31/2024 11:18:30 08/31/2008/31/2024 CBC/C OMPLE TE BLD COUNT W/DIF F hematocrit 45.5 % 39.3-5 0.0 Not Available [facility] (Lab) [address] [place], [address], 08/31/2024 11:18:30 08/31/2008/31/2024 CBC/C OMPLE TE BLD COUNT W/DIF F mean red cell volume 92.9 fL 80.0-9 7.0 Not Available [facility] (Lab) [address] [place], [address], 08/31/2024 11:18:30 08/31/2008/31/2024 CBC/C OMPLE TE BLD COUNT W/DIF F mean red cell hemoglobin 30.4 pg 27.0-3 3.0 Not Available [facility] (Lab) [address] [place], [address], 08/31/2024 11:18:30 08/31/2008/31/2024 CBC/C OMPLE TE BLD COUNT W/DIF F mean RBC HGB concentratio n 32.7 g/dL 31.0-3 6.0 Not Available [facility] (Lab) [address] [place], [address], 08/31/2024 11:18:30 08/31/2008/31/2024 CBC/C OMPLE TE BLD COUNT W/DIF F red cell distribution width 14.0 % 11.8-1 5.5 Not Available [facility] (Lab) [address] [place], [address], 08/31/2024 11:18:30 08/31/20 24 08/31/2024 CBC/C OMPLE TE BLD COUNT W/DIF F platelets 151 x10'3 /uL 150-40 0 Not Available [facility] (Lab) [address] [place], [address], 08/31/2024 11:18:30 08/31/2008/31/2024 CBC/C OMPLE TE BLD COUNT W/DIF F mean platelet volume 10.0 fL 9.0-12 .4 Not Available [facility] (Lab) [address] [place], [address], 08/31/2024 11:18:30 08/31/2008/31/2024 CBC/C OMPLE TE BLD COUNT W/DIF F neutrophils 78.8 % 39.0-7 2.0 high Not Available [facility] (Lab) [address] [place], [address], 08/31/2024 11:18:30 08/31/2008/31/2024 CBC/C OMPLE TE BLD COUNT W/DIF F lymphocytes 11.8 % 16.0-4 7.0 low Not Available [facility] (Lab) [address] [place], [address], 08/31/2024 11:18:30 08/31/2008/31/2024 CBC/C OMPLE TE BLD COUNT W/DIF F monocytes 8.1 % 5.0-12 .0 Not Available [facility] (Lab) [address] [place], [address], 08/31/2024 11:18:30 08/31/2008/31/2024 CBC/C OMPLE TE BLD COUNT W/DIF F eosinophils 0.5 % 1.0-7. 0 low Not Available [facility] (Lab) [address] [place], [address], 08/31/2024 11:18:30 08/31/20 24 08/31/2024 CBC/C OMPLE TE BLD COUNT W/DIF F basophils 0.3 % 0.0-2. 0 Not Available [facility] (Lab) [address] [place], [address], 08/31/2024 11:18:30 08/31/2008/31/2024 CBC/C OMPLE TE BLD COUNT W/DIF F immature granulocytes 0.5 % 0.00-0 .50 Not Available [facility] (Lab) [address] [place], [address], 08/31/2024 11:18:30 08/31/2008/31/2024 CBC/C OMPLE TE BLD COUNT W/DIF F neutrophils, absolute count 5.82 x10'3 /uL 1.5-8. 0 Not Available [facility] (Lab) [address] [place], [address], 08/31/2024 11:18:30 08/31/2008/31/2024 CBC/C OMPLE TE BLD COUNT W/DIF F lymphocytes, absolute count 0.87 x10'3 /uL 1.07-3 .43 low Not Available [facility] (Lab) [address] [place], [address], 08/31/2024 11:18:30 08/31/2008/31/2024 CBC/C OMPLE TE BLD COUNT W/DIF F monocytes, absolute count 0.60 x10'3 /uL 0.29-0 .99 Not Available [facility] (Lab) [address] [place], [address], 08/31/2024 11:18:30 08/31/2008/31/2024 CBC/C OMPLE TE BLD COUNT W/DIF F eosinophils, absolute count 0.04 x10'3 /uL 0.02-0 .53 Not Available [facility] (Lab) [address] [place], [address], 08/31/2024 11:18:30 08/31/20 24 08/31/2024 CBC/C OMPLE TE BLD COUNT W/DIF F basophils, absolute count 0.02 x10'3 /uL 0.01-0 .08 Not Available [facility] (Lab) [address] [place], [address], 08/31/2024 11:18:30 08/31/20 24 08/31/2024 CBC/C OMPLE TE BLD COUNT W/DIF F immature granulocytes ,absolute 0.04 x10'3 /uL 0.00-0 .05 Not Available [facility] (Lab) [address] [place], [address], 08/31/2024 11:18:30 08/31/2008/31/2024 CBC/C OMPLE TE BLD COUNT W/DIF F nucleated red blood cells 0.0 % -0 Not Available [facility] (Lab) [address] [place], [address], 08/31/2024 11:18:30 08/31/2008/31/2024 CBC/C OMPLE TE BLD COUNT W/DIF F NRBC# 0.00 x10'3 /uL Not Available [facility] (Lab) [address] [place], [address], 08/31/2024 11:18:30 08/31/2008/31/2024 MICRO ALBUM IN RANDO M URINE microalbumin , urine 19.9 mg/L 0.0-16 .6 high Not Available [facility] (Lab) [address] [place], [address], 08/31/2024 11:40:26 08/31/2008/31/2024 LIPID PANEL cholesterol 151 mg/dL 140-19 9 NIH SHANA NSUS RECOM MENDA TION FOR VICKY STERO L: ADULT CHILD LOW RISK: <200 <170 BORDE RLINE : <200- 239 ----- HIGH RISK: >240 >200 Not Available [facility] (Lab) [address] [place], [address], 08/31/2024 11:43:16 08/31/2008/31/2024 LIPID PANEL triglyceride s 168 mg/dL 0-150 high NIH SHANA NSUS REPOR T RECOM MENDA TION FOR TRIGL YCERI VIOLETTA: ADULT CHILD LOW RISK: <150 ----- BODER LINE: 150-1 99 ----- HIGH RISK: >200 ----- Not Available [facility] (Lab) [address] [place], [address], 08/31/2024 11:43:16 08/31/2008/31/2024 LIPID PANEL HDL cholesterol 45 mg/dL 40- Not Available [facility] (Lab) [address] [place], [address], 08/31/2024 11:43:16 08/31/2008/31/2024 LIPID PANEL LDL cholesterol, calculated 72 mg/dL 0-130 NIH SHANA NSUS REPOR T RECOM MENDA TIONS FOR LDL: ADULT CHILD LOW RISK <130 <110 (OPTI MAL LDL) <100 ----- SUSYDE RLINE : 130-1 59 ----- HIGH RISK: >160 >130 A TRIGL YCERI DE RESUL T >400 INVAL IDATE S THE CALCU LATIO N FOR LDL FRACT IONAT ION - THE LDL RESUL T WILL NOT BE REPOR SHANNAN. Not Available [facility] (Lab) [address] [place], [address], 08/31/2024 11:43:16 08/31/2008/31/2024 COMPR EHENS DEANNA METAB OLIC PANEL sodium 138 mmol/ L 137-14 5 Not Available [facility] (Lab) [address] [place], [address], 08/31/2024 11:43:26 08/31/2008/31/2024 COMPR EHENS DEANNA METAB OLIC PANEL potassium 5.0 mmol/ L 3.5-5. 1 Not Available [facility] (Lab) [address] [place], [address], 08/31/2024 11:43:26 08/31/2008/31/2024 COMPR EHENS DEANNA METAB OLIC PANEL chloride 104 mmol/ L 98-107 Not Available [facility] (Lab) [address] [place], [address], 08/31/2024 11:43:26 08/31/2008/31/2024 COMPR EHENS DEANNA METAB OLIC PANEL carbon dioxide 28 mmol/ L 22-30 Not Available [facility] (Lab) [address] [place], [address], 08/31/2024 11:43:26 08/31/2008/31/2024 COMPR EHENS DEANNA METAB OLIC PANEL anion gap 11.0 mmol/ L 14-22 low Not Available [facility] (Lab) [address] [place], [address], 08/31/2024 11:43:26 08/31/2008/31/2024 COMPR EHENS DEANNA METAB OLIC PANEL glucose 107 mg/dL 70-99 high Not Available [facility] (Lab) [address] [place], [address], 08/31/2024 11:43:26 08/31/2008/31/2024 COMPR EHENS DEANNA METAB OLIC PANEL BUN 16 mg/dL 8-19 Not Available [facility] (Lab) [address] [place], [address], 08/31/2024 11:43:26 08/31/20 24 08/31/2024 COMPR EHENS DEANNA METAB OLIC PANEL creatinine 0.76 mg/dL 0.66-1 .25 Not Available [facility] (Lab) [address] [place], [address], 08/31/2024 11:43:26 08/31/20 24 08/31/2024 COMPR EHENS DEANNA METAB OLIC PANEL GFR >60 Refer ence Range : [place] ge GFR Healt hy Adult : >60 [...] calcu lator is avail able on the [facility] websi te: https ://fozia w.steve luna.o rg/pr ofess ional s/kdo qi/gf r_cal culat or Not Available [facility] (Lab) [address] [place], [address], 08/31/2024 11:43:26 08/31/20 24 08/31/2024 COMPR EHENS DEANNA METAB OLIC PANEL alkaline phosphatase 64 U/L 38-126 Not Available [facility] (Lab) [address] [place], [address], 08/31/2024 11:43:26 08/31/20 24 08/31/2024 COMPR EHENS DEANNA METAB OLIC PANEL alanine aminotransfe rase 17 U/L 0-50 Not Available [facility] (Lab) [address] [place], [address], 08/31/2024 11:43:26 08/31/2008/31/2024 COMPR EHENS DEANNA METAB OLIC PANEL aspartate aminotransfe rase 23 U/L 15-46 Not Available [facility] (Lab) [address] [place], [address], 08/31/2024 11:43:26 08/31/2008/31/2024 COMPR EHENS DEANNA METAB OLIC PANEL bilirubin, total 0.80 mg/dL 0.20-1 .30 Not Available [facility] (Lab) [address] [place], [address], 08/31/2024 11:43:26 08/31/2008/31/2024 COMPR EHENS DEANNA METAB OLIC PANEL calcium 9.4 mg/dL 8.4-10 .2 Not Available [facility] (Lab) [address] [place], [address], 08/31/2024 11:43:26 08/31/2008/31/2024 COMPR EHENS DEANNA METAB OLIC PANEL total protein 6.0 g/dL 6.3-8. 2 low Not Available [facility] (Lab) [address] [place], [address], 08/31/2024 11:43:26 08/31/2008/31/2024 COMPR EHENS DEANNA METAB OLIC PANEL albumin 3.7 g/dL 3.0-4. 4 Not Available [facility] (Lab) [address] [place], [address], 08/31/2024 11:43:26 08/31/2008/31/2024 COMPR EHENS DEANNA METAB OLIC PANEL globulin 2.3 g/dL 2.6-4. 2 low Not Available [facility] (Lab) [address] [place], [address], 08/31/2024 11:43:26 08/31/2008/31/2024 COMPR EHENS DEANNA METAB OLIC PANEL A/G ratio 1.6 ratio 1.0-2. 0 Not Available [facility] (Lab) [address] [place], [address], 08/31/2024 11:43:26 08/31/2008/31/2024 TSH W/REF SAAD FT4 TSH with reflex free T4 0.684 uIU/m L 0.465- 4.680 Not Available [facility] (Lab) [address] [place], [address], 08/31/2024 12:03:05 08/31/2008/31/2024 VITAM IN D 25-HY DROXY [id number] 24.1 NG/mL 30-100 low Vitam in D Statu s: Defic ient: <20 ng/mL Insuf ficie nt: 20-29 ng/mL Suffi cient : 30-10 0 ng/mL Not Available [facility] (Lab) [address] [place], [address], 08/31/2024 12:05:58 08/31/2009/03/2024 HEMOG LOBIN A1C HA1C 5.9 % 4.0-6. 0 Diabe sal Scree elliott Crite jack: <5.7% Consi stent with absen ce of diabe sal 5.7-6 .4% Consi stent with incre ased risk for diabe sal (pred iabet es) >OR=6 .5% Consi stent with diabe sal REFER ENCE: Diabe sal Care 2016, 39(Zacarias ppl.1 ):s13 -s22 Not Available [facility] (Lab) [address] [place], [address], 09/03/2024 14:39:57 05/22/20 24 05/22/2024 cardi ac stres s test No observ ation record ed. [address] [facility] [address], [place], [address], 10/23/2024 09:06:42 09/14/20 24 09/14/2024 imagi ng/di agnos tic resul t No observ ation record ed. [address] [facility] [address], [place], [address], 10/23/2024 09:07:00 09/18/20 24 09/18/2024 CT, angio gram, chest + abdom en + pelvi s, w/ contr ast No observ ation record ed. [address], [address], 10/23/2024 09:08:31 09/27/20 24 09/27/2024 XR, chest , 2 view No observ ation record ed. [address] [place], [address], 10/23/2024 09:08:46 10/24/20 24 10/24/2024 US, liver [facility] [address] [address] [phone] Patien t Name: MANNIE CABELLO Access ion #: [id number] Sex: M : 1949 4 Dictat ed By: Lashell Francisco Attend ing Physic franklyn: ALFONZO HEBERT Orderjai cooper Physic franklyn: ALFONZO HEBERT Exam Date: 2023 [...] at 2023 07:51: 24 AM Page 1 [facility] (One Call Scheduling) [address] [place], [address], 11/27/2024 11:50:16 01/30/20 25 2025 imagi ng/di agnos tic resul t No observ ation record ed. [address] [place] [address], [address], 2025 17:01:47 02/04/20 25 02/03/2025 imagi ng/di agnos tic resul t No observ ation record ed. [address], [address], 02/03/2025 11:27:52 02/04/20 25 02/03/2025 imagi ng/di agnos tic resul t No observ ation record ed. [address], [address], 02/03/2025 12:32:48 Result Notes None recorded. Problems Name Problem SNOMED Code Status Onset Date Resolution Date Notes Provider Name and Address Organization Details Recorded Time Spinal stenosis of lumbar region 87671991 Active 2022 Not Available [facility] 12:47:20 Morbid obesity 193154636 Active 2022 Not Available [facility] 3 12:47:20 Osteoarthr itis of knee 337991040 Active Not Available [facility] 3 12:47:20 Low back pain 391399687 Active 2022 Not Available [facility] 3 12:47:20 Osteoarthr itis 322142503 Active 2021 Not Available [facility] 3 12:47:20 Arthropath y of joint of hand 671244422 Active Not Available [facility] 3 12:47:20 Osteoarthr itis of right knee joint 8396140443664 00 Active 2022 BENNIE Luis, [facility] 3 08:45:57 Coronary arterioscl erosis 77096994 Active 2022 Nahed bryant MD [address], [address], [place], [address] , [facility] 3 13:56:07 Type 2 diabetes mellitus without complicati on 569083843 Active 2022 Nahed bryant MD [address], [place], [address] , [facility] 3 13:56:16 Hyperlipid emia 90286090 Active 2022 Nahed bryant MD [address], [address], [place], [address] , [facility] 3 13:56:56 Vitamin D deficiency 84477392 Active 2022 Nahed bryant MD [address], [address], [place], [address] , [facility] 3 14:07:39 Urinary incontinen ce 103434632 Active 2022 Nahed bryant MD [address], [place], [address] , [facility] 3 14:23:53 Gastroesop hageal reflux disease without esophagiti s 231937401 Active 2022 Nahed bryant MD [address], [address], [place], [address] , [facility] 3 14:24:14 Chronic pain 33693397 Active 2022 Nahed bryant MD [address], [address], [place], [address] , [facility] 3 14:24:54 Atrial fibrillati on 15428021 Active 2022 Nahed bryant MD [address], [address], [place], [address] , [facility] 3 14:25:54 Obstructiv e sleep apnea syndrome 17033066 Active 2022 Nahed bryant MD [address], [place], [address] , [facility] 3 14:26:12 Bilateral osteoarthr itis of knees 3285968416335 07 Active 2022 BENNIE Luis null, [place] [facility] 3 08:33:04 Osteoarthr itis of left knee joint [id number] 09 Active 2022 Amaya Beth CMA null, [place] [facility] 3 08:49:55 Chronic diarrhea 045215403 Active 2023 Evelina Best MA null, [place] [facility] 4 11:40:20 Proteinuri a 47159624 Active 2023 Nahed bryant MD [address], [address], [place], [address] , [facility] 4 17:27:16 Pain of left knee joint [id number] 07 Active 2023 Nahed bryant MD [address], [address], [place], [address] , [facility] 4 09:36:49 Diarrhea 24023125 Active 2023 Nahed bryant MD [address], [address], [place], [address] , [facility] 4 10:17:42 Chronic pain syndrome 570270476 Active 2023 Evelina Best MA [facility], [facility] 4 14:16:46 Neuropathy 088622548 Active 2023 Nahed bryant MD [address], [address], [place], [address] , [facility] 4 15:37:24 Pruritic rash 13656825 Active 2023 Nahed bryant MD [address], [address], [place], [address] , [facility] S[employer] 4 09:27:08 Lesion of skin of face 619715158513 Active 2023 Nahed bryant MD [address], [address], [place], [address] , [facility] 4 09:29:33 Erectile dysfunctio n 169504637 Active 2023 Nahed bryant MD [address], [address], [place], [address] , [facility] 4 12:03:37 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 376261952 Active 2023 Rafael Mares MD [address], [address], [place], [address] , [facility] 4 16:15:23 Paratrache al lymphadeno tierra 37549403 Active 2023 Mildred FamMICH null, [facility] 4 09:52:03 Non-alcoho lic fatty liver 640017922 Active 2023 Eduardajose Fam CMA null, [facility] 4 09:56:45 Hepatomega ly 09606117 Active 2023 Eduardajose FamMICH lorri, [facility] 4 16:09:09 Notes:Medical History: Anxie ty Rhinitis with postnasal drip Obesity with very sevre OSAHS, AHI = 49, 01/22/16, off autoCPAP Hypertension Hyperlipidemia T2DM with neuropathy CAD s/p [place] ZACK Urge urinary incontinence BPH RLS Gout Knee/Hand OA on hydrocodone Procedure History: T&A 1957 CABG 1993 AVR 2004 Gastric sleeve surgery 2016 Problem Notes None recorded. Procedures Surgical History Date Name Laterality Status Provider Name and Address Organization Details Recorded Time 03/16/20 24 Pacemaker completed BENNIE Saldivar [facility] 04/26/2024 09:09:47 01/26/20 24 Medicare Wellness CPT Code, subsequent completed Eusebia Taylor MA [facility] Youjia [facility] 01/26/2024 10:46:49 11/07/19 00 bariatric operative procedure completed Bibiana Manzano [facility] 09/12/2024 14:14:45 open heart surgery completed Valarie Reed Jose [facility] 10/20/2023 14:17:29 Knee Replacement completed Valarie Reed Jose [facility] 10/20/2023 14:06:52 Knee completed Valarie Reed Jose [facility] 10/20/2023 14:07:29 Tonsillectomy completed Valarie Reed Jose [facility] 10/20/2023 14:07:35 Imaging Results None recorded. Procedure Notes None recorded. Medical Equipment None [...] BY MOUTH TWICE A DAY NEEDED DIRECTED active Not Available Not Available No t Available albuterol sulfate 2.5 mg/3 mL (0.083 [...] TAKE 1 TABLET BY MOUTH EVERY DAY 12/14 /2023 completed Not Available Not Available Not Available [...] completed Not Available Not Available Not Available acetaminoph en 500 mg tablet TAKE 1-2 TABLETS BY MOUTH EVERY 6 HOURS NEEDED FOR PAIN *DO NOT EXCEED 8 TABLETS DAILY* active Not Available Not Available No t Available sildenafil 100 mg tablet TAKE 1 30 MINUTES TO 4 HOURS BEFORE ACTIVITY 09/12 completed Not Available Not Available Not Available triamcinolo ne acetonide 0.1 % topical cream APPLY THIN COAT TO AFFECTED AREA TWICE A DAY 2024 active Not Available Not Available Not Avai lable temazepam 7.5 mg capsule TAKE 1 CAPSULE BY MOUTH EVERY DAY AT BEDTIME NEEDED FOR SLEEP 10/20 completed Not Available Not Available Not Available carvedilol 3.125 mg tablet TAKE 1 TABLET BY MOUTH TWICE A DAY active Not Available Not Available No t Available Cholestyram ine Light 4 gram powder for suspension in a packet DISSOLVE CONTENTS OF 1 PACKET IN 4 TO 6 OUNCES OF LIQUID AND TAKE TWICE DAILY NEEDED active Not Available Not Available [...] Available Not Available tamsulosin 0.4 mg capsule TAKE 2 CAPSULES BY ORAL ROUTE FOR 90 DAYS. active Not Available Not Available No t Available dipyridamol e 75 mg tablet TAKE 1 TABLET BY MOUTH FOUR TIMES A DAY active Not Available Not Available No t Available OneTouch Ultra Test strips USE TO TEST TWICE DAILY active Not Available Not Available No t Available Kenalog 10 mg/mL suspension for injection in office 01/25 completed [facility]: 0003- [phone]- 20 Not Available Not Available Not Available doxycycline monohydrate 100 mg capsule TAKE 1 CAPSULE BY MOUTH TWICE A DAY FOR 7 DAYS 12/30 completed Not Available Not Available Not Available hydrocodone 7.5 mg-acetamin ophen 325 mg tablet TAKE 1-2 TABLETS BY MOUTH ONCE DAILY TO TWICE A DAY NEEDED active Not [...] red by the provider 11/10 completed [facility]: [phone]- [phone] Not Available Not Available [...] administe red by provider 12/15 completed [facility] [phone] -[phone] Not Available Not Available Not [...] Available Not Available No t Available Entresto 24 mg-26 mg tablet TAKE 1 TABLET BY MOUTH TWICE A DAY 09/04 completed Not Available Not Available Not Available Ozempic 0.25 mg or 0.5 mg (2 mg/1.5 mL) subcutaneou s pen injector INJECT 0.25MG UNDER THE SKIN ONCE WEEKLY [id number] THEN INCREASE TO 0.5MG ONCE WEEKLY [id number] 10/20 completed Not Available Not Available Not [...] Updated DateTime 5 172.72 cm 36.6 kg/m2 737001. 76 g 97.4 [degF] 89 /min 98 % 98 % 120 mm[Hg] 60 mm[Hg] Diane Clarke [place] [employer] 5 09:06:59 Date Recorded Body height Body temperature Heart rate Oxygen saturation Oxygen saturation in Arterial blood by Pulse oximetry Systolic blood pressure Diastolic blood pressure Provider Name and Address Organization Details Last Updated DateTime 5 172.72 cm 97.2 [degF] 85 /min 97 % 97 % 116 mm[Hg] 93 mm[Hg] Bibiana ARREOLA Sontra [facility] [employer] [facility] 5 15:36:18 Date Recorded Body height Body mass index (BMI) Body weight Body temperature Heart rate Systolic blood pressure Diastolic blood pressure Provider Name and Address Organization Details Last Updated DateTime 4 175.26 cm 34.9 kg/m2 296334. 8 g 97.4 [degF] 78 /min 110 mm[Hg] 62 mm[Hg] Valarie Reed [facility] [employer] [facility] [employer] [facility] 4 14:56:36 Date Recorded Body height Body temperature Heart rate Systolic blood pressure Diastolic blood pressure Provider Name and Address Organization Details Last Updated DateTime 09/04/2024 175.26 cm 97.2 [degF] 78 /min 128 mm[Hg] 70 mm[Hg] Valarie Reed [facility] [employer] [facility] [employer] [facility] 4 11:56:36 Date Recorded Body height Body mass index (BMI) Body weight Body temperature Oxygen saturation Oxygen saturation in Arterial blood by Pulse oximetry Heart rate Systolic blood pressure Diastolic blood pressure Provider Name and Address Organization Details Last Updated DateTime 4 172.72 cm 37.6 kg/m2 805644. 32 g 97.3 [degF] 96 % 96 % 85 /min 132 mm[Hg] 73 mm[Hg] Bibiana Manzano ME Sontra [facility] [employer] 4 14:13:00 Social History Question Answer Notes LastModified by Organizat ion Details LastModified Time Tobacco Smoking Status Never Smoker Not Available [facility] 01/05/2023 12:45:57 Do You Have An Advance Directive? No Information not available 10/20/2023 Are You Blind Or Do You Have Difficulty Seeing? No Information not available 10/20/2023 What Is Your Level Of Caffeine Consumption? Moderate Information not available 10/20/2023 In The 14 Days Before Symptom Onset, Have You Had Close Contact With A Laboratory-confir med COVID-19 While That Case Was Ill? No Information not available 10/20/2023 In The 14 Days Before Symptom Onset, Have You Had Close Contact With A Person Who Is Under Investigation For COVID-19 While That Person Was Ill? No Information not available 10/20/2023 Are You Deaf Or Do You Have Serious Difficulty Hearing? No Information not available 10/20/2023 What Type Of Diet Are You Following? REGULAR MIGRATION.[id number] Information not available 01/05/2023 What Is The Highest Grade Or Level Of School You Have Completed Or The Highest Degree You Have Received? [id number] Information not available 10/20/2023 Do You Have An Electrostatic Air Filter? No MIGRATION.79673 21487 Information not available 01/05/2023 Have There Been Any Changes To Your Family Or Social Situation? No Information no t available 04/16/2024 What Is The Fluoride Status Of Your Home? Unknown Information not available 10/20/2023 Are There Any Guns Present In Your Home? Yes [id number] [id number] Information not available 01/05/2023 Do You Have A Humidifier? Yes MIGRATION.66645 [id number] Information not available 01/05/2023 Do You Use Insect Repellent Routinely? No Information not available 12/06/2024 Where Do You Live? [place]House MIGRATION.49376 13514 Information not available 01/05/2023 Do You Have A Medical Power Of Adult Health Clinical Nurse Specialist? Yes Information not available 10/20/2023 Do You Have Moisture Problems In Your Home? No MIGRATION.78634 [id number] Information not available 01/05/2023 What Was The Date Of Your Most Recent Tobacco Screening? 12/14/2024 [email or web address] Information not available 12/14/2024 Do You Have Any Pets? Yes MIGRATION.55719 [id number] Information not available 01/05/2023 What Is Your Relationship Status? Information not available 10/20/2023 Do You Use Your Seat Belt Or Car Seat Routinely? Yes Information not available 10/20/2023 Do You Have Smoke And Carbon Monoxide Detectors In Your Home? Yes MIGRATION.24302 08110 Information not available 01/05/2023 Are You Passively Exposed To Smoke? No MIGRATION.70110 50497 Information not available 01/05/2023 Are There Any Smokers In Your House? No Information not available 10/20/2023 Do You Use Sunscreen Routinely? No MIGRATION.09324 09501 Information not available 01/05/2023 Has Tobacco Cessation Counseling Been Provided? No N/a Information not available 10/20/2023 Have You Recently Traveled Abroad? No MIGRATION.71343 62943 Information not available 01/05/2023 Do You Have Difficulty Walking Or Climbing Stairs? Yes Information not available 10/20/2023 Do You Have Any Dietary Restrictions? No MIGRATION.34173 09954 Information not available 01/05/2023 Sex: Male Functional Status Question Answer Note LastModified by Organizat ion Details LastModified Time Do you use any illicit or recreational drugs? No Information not available 10/20/2023 Do you or have you ever used any other forms of tobacco or nicotine? No Information not available 10/20/2023 What is your level of alcohol consumption? 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 [id number] Information not available 10/20/2023 Do you have difficulty concentrating, remembering or making decisions? No Information no t available 10/20/2023 Family History Relationship Description Onset Age of this Age Resolved Age Notes LastModified by Organization Details LastModified Time Father Heart disease [id number] Not available 01/05/2023 12:45:59 Father Hypertensive disorder [id number] [id number] Not available 01/05/2023 12:45:59 Father Diabetes mellitus [id number].349 [id number] Not available 01/05/2023 12:45:59 Medical History Condition [...] SNOMED-CT Code Diagnosis ICD10 Code Diagnosis Note [id number] OSMAR Suarez S[facility] [address] [place] [address] 02/18/2021 00:00:00 02/18/2021 11:32:06 [id number] Jorge Richard MD [facility] [address] [place] [address] 06/19/2021 00:00:00 06/19/2021 14:55:34 [id number] Jorge Tyson MD [facility] [address] 11/17/2021 00:00:00 11/17/2021 15:32:34 [id number] MD FAMILIA ChawlaS[facility] [address] 01/12/2022 00:00:00 01/12/2022 10:01:46 [id number] Jorge Richard MD [facility] [address] [place] [address] 2022 00:00:00 2022 14:19:26 [id number] MD FAMILIA ScottS[facility] [address] [place] [address] 05/26/2022 00:00:00 05/26/2022 15:15:44 [id number] MD MARY KATE Ch[facility] [address] 08/10/2022 00:00:00 08/10/2022 10:20:52 [id number] MD FAMILIA [facility] [address] [place] [address] 09/08/2022 00:00:00 09/08/2022 09:38:15 [id number] Ray García MD [facility] [address] [place] [address] 11/25/2022 00:00:00 11/25/2022 09:19:23 [id number] MD FAMILIA ScottS[facility] [address] [place] [address] 12/17/2022 00:00:00 12/17/2022 10:08:24 [id number] Ray García MD [facility] [address] [place] [address] 12/23/2022 00:00:00 12/23/2022 09:20:24 [id number] Ray García MD [facility] [address] [place] [address] 12/30/2022 00:00:00 12/30/2022 09:33:[id number] [facility] [address] [place] [address] 03/25/2023 08:38:13 03/25/2023 09:26:01 Osteoarthritis of right knee joint 0325142905 85939 M17.[id number] [facility] [address] [place] [address] 06/24/2023 08:44:09 06/24/2023 09:15:28 Osteoarthritis of right knee joint 1670350759 17509 M17.11 [id number] Nahed bryant MD [facility] Internal Med [address] [facility], [address] [place] [address] 10/20/2023 13:47:19 10/20/2023 15:03:58 Screening - NAD 612775175 Z13.9 C-scope: Get yearly flu shotGet TdapGet Shingrix vaccineGet PCV #20Get COVID 19 vaccineGet RSV vaccine RTC in 3 months, do labs ER if worse, he did verbalize his understand ing of the above Coronary arteriosclerosis 38937944 I25.10 On ASAOn dipyridamo le 75mg qidOn isosorbide ER 30mg dailyOn NTGOn sotalol 80mg bidOn torsemide 20mg dailyOn valsartan 160mg bidOn warfarin Sees Dr Wyman, INR to be done by [facility] 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 471644892 E11.9 On jardiance 10mg dailyOn metformin 1000mg dailyOn Ozempic 2mg weekly Get labs Hyperlipidemia 52827035 E78.5 Screening for malignant neoplasm of prostate 318674733 Z12.5 Vitamin D deficiency 347 67924 E55.9 Urinary incontinence 165 030894 R32 On finasterid e 5mg daily Gastroesop hageal reflux disease without esophagitis 529158263 K21.9 On pantoprazo le 40mg dailyGet EGD done Chronic pain 39998974 G8 9.29 Advised not to take any NSAIDs!Nee ds to see pain management , unable to provide any opiates or controlled substances Atrial fibrillation 4943 [address]004 I48[address] Wyman Obstructiv e sleep apnea syndrome 02807976 G47.33 Screening for malignant neoplasm of colon 369874825 Z12.11 [id number] Jorge Richard MD [facility] [address] [place] [address] 10/26/2023 08:26:07 10/26/2023 09:13:32 Osteoarthritis of right knee joint 1486042785 51981 M17.11 [id number] Nahed bryant MD [facility] Internal Med [address] [facility], [address] [place] [address] 01/26/2024 08:52:47 01/26/2024 10:22:16 Screening - NAD 049074434 Z13.9 C-scope: Get this done Get yearly flu shotGet TdapGet Shingrix vaccineGet PCV #20Get COVID 19 vaccineGet RSV vaccine RTC in 3 months, do labs ER if worse, he did verbalize his understand ing of the above Coronary arteriosclerosis 11524247 I25.10 ECHO 01/05/2024 : In a fib On ASAOn dipyridamo le 75mg qidOn isosorbide ER 30mg dailyOn NTGOn sotalol 80mg bidOn torsemide 20mg dailyOn valsartan 160mg bidOn warfarin Sees Dr Wyman, INR to be done by [facility] 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 161793206 E11.9 On jardiance 10mg dailyNot on metformin 1000mg dailyNot on Ozempic 2mg weekly, stopped by Dr Wyman 01/12/2024 , d/t diarrhea Get labs Hyperlipidemia 23519188 E78.5 On atorvastat in 40mg dailyGet labs Vitamin D deficiency 347 27091 E55.9 Urinary incontinence 165 519877 R32 On finasterid e 5mg daily Gastroesop hageal reflux disease without esophagitis 328180400 K21.9 On pantoprazo le 40mg dailyGet EGD done Chronic pain 28720862 G8 9.29 Advised not to take any NSAIDs!Nee ds to see pain management , unable to provide any opiates or controlled substances OV 01/26/2024 :[facility] pain management 11/17/2023 His hydrocodon e was not prescribed , and this did coincide with his diarrhea, may be withdrawal ? Atrial fibrillation 4943 6004 I48.[address] Wyman Obstructiv e sleep apnea syndrome 50999786 G47.33 Dr Tyson 08/10/2022 Screening for malignant neoplasm of colon 106223250 Z12.11 Proteinuria 22578446 R80 .9 On [facility] eds to see nephrology Pain of le ft knee joint 5603862080 52617 M25.562 José Miguel PRASAD 01/25/2024 , s/p kenalog Diarrhea 01646355 R19.7 Has stopped the metformin, ozempicHis opiates were not renewed by pain management Also stop the iron tabsMay need to be on cholestyra mine or take lomotil as neededIf not better then see GI Adult heal th examination 928756869 Z00.00 Screening for disorder 760543587 Z13.9 [id number] Jorge Richard MD [facility] [address] [place] [address] 01/25/2024 08:59:32 01/25/2024 11:45:22 Osteoarthritis of left knee joint 1745530031 51788 M17.12 [id number] Nahed bryant MD [facility] Sharon cochran [address] [facility] [place] [address] 04/16/2024 08:54:53 04/16/2024 09:30:32 Screening - NAD 700684456 Z13.9 C-scope: Get this done Get yearly flu shotGet TdapGet Shingrix vaccineGet PCV #20Get COVID 19 vaccineGet RSV vaccine RTC in 2 months, do labs ER if worse, he did verbalize his understand ing of the above Coronary arteriosclerosis 74491289 I25.10 ECHO 01/05/2024 : In a fib On ASAOn dipyridamo le 75mg qidOn isosorbide ER 30mg dailyOn NTGOn sotalol 80mg bidOn torsemide 20mg dailyOn valsartan 160mg bidOn warfarin Sees Dr Wyman, INR to be done by [facility] 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 298714290 E11.9 On jardiance 10mg dailyNot on metformin 1000mg dailyNot on Ozempic 2mg weekly, stopped by Dr Wyman 01/12/2024 , d/t diarrhea Get labs Hyperlipidemia 21113734 E78.5 On atorvastat in 40mg dailyGet labs Vitamin D deficiency 347 17373 E55.9 Urinary incontinence 165 558442 R32 On finasterid e 5mg daily Gastroesop hageal reflux disease without esophagitis 464160747 K21.9 On pantoprazo le 40mg dailyGet EGD done Chronic pain 86783745 G8 9.29 Advised not to take any [...] Dr Wyman Obstructiv e sleep apnea syndrome 03568149 G47.33 Dr Tyson 08/10/2022 Screening for malignant neoplasm of colon 531021497 Z12.11 Proteinuria 70335120 R80 .9 On [facility] eds to see nephrology Pain of le ft knee joint 0521274008 29160 M25.562 José Miguel PRASAD 01/25/2024 , s/p kenalog Diarrhea 50109295 R19.7 Has stopped the metformin, ozempicHis opiates were not renewed by pain management Also stop the iron tabsMay need to be on cholestyra mine or take lomotil as neededIf not better then see GI OV 04/16/2024 :On cholestyra minaShould see GI to determine the cause of the diarrhea Neuropathy 931550838 G62 .9 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 Is on qutenza (capsacin) Pruritic rash 61254455 L 28.2 Lesion of skin of face 1213644553 06 L98.9 Sees his dermatolog ist in [facility] hyperemic lesion noted on the L scalp and R mid neck [id number] Nahed bryant MD [facility] Internal [facility] [address] [facility], [address] [place] [address] 04/26/2024 08:23:58 04/26/2024 09:38:30 Screening - NAD 670490683 Z13.9 C-scope: Get this done Get yearly flu shotGet TdapGet Shingrix vaccineGet PCV #20Get COVID 19 vaccineGet RSV vaccine RTC in 2 months, do labs ER if worse, he did verbalize his understand ing of the above Coronary arteriosclerosis 92170320 I25.10 ECHO 01/05/2024 : In a fibUS carotid 02/02/2024 On ASAOn coregOn dipyridamo le 75mg qidOn isosorbide ER 30mg dailyOn NTGNot on sotalol 80mg bidOn torsemide 20mg dailyNot on valsartan 160mg bid, d/c 04/12/2024 On entresto 97-103mg bid Dr Wyman 04/12/[address] Wyman, INR to be done by [facility] 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 090747036 E11.9 On jardiance 10mg dailyNot on metformin 1000mg dailyNot on Ozempic 2mg weekly, stopped by Dr Wyman 01/12/2024 , d/t diarrhea Get labs Hyperlipidemia 29630036 E78.5 On atorvastat in 40mg dailyGet labs Vitamin D deficiency 347 02950 E55.9 Urinary incontinence 165 247202 R32 On finasterid e 5mg daily Gastroesop hageal reflux disease without esophagitis 594035365 K21.9 On pantoprazo le 40mg dailyGet EGD done, has seen Dr Spears Chronic pain 45232518 G8 9.29 Advised not to take any [...] Dr Wyman Obstructiv e sleep apnea syndrome 85298242 G47.33 Dr Tyson 08/10/2022 Proteinuria 93443393 R80 .[address] Ruiz 03/27/2024 Pain of le ft knee joint 5944539208 06893 M25.562 José Miguel Mcduffie PA 01/25/2024 , s/p kenalog Diarrhea 47517707 R19.7 Has stopped the metformin, ozempicHis opiates were not renewed by pain management Also stop the iron tabsMay need to be on cholestyra mine or take lomotil as neededIf not better then see GI OV 04/16/2024 :On cholestyra minaShould see GI to determine the cause of the diarrhea OV 04/26/2024 :Dr Spears 04/11/2024 , to get EGD and C-scope Neuropathy 481385981 G62 .9 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 Is on qutenza (capsacin) Pruritic rash 15106482 L 28.2 Has noted a rash underneath the abdominal fold, none today, but has used clot-betam ethasone in the past with good reliefRene w the clotrimazo le-betamet hasone cream Lesion of skin of face 0853588554 06 L98.9 [facility] on the L scalp and R mid neck [id number] Nahed bryant MD S[facility] Internal Med [address] [facility] [address] [place] [address] 06/05/2024 14:41:48 06/05/2024 15:28:55 Screening - NAD 687948256 Z13.9 C-scope: Get this done Get yearly flu shotGet TdapGet Shingrix vaccineGet PCV #20Get COVID 19 vaccineGet RSV vaccine RTC in 3 months, do labs ER if worse, he did verbalize his understand ing of the above Coronary arteriosclerosis 79096657 I25.10 ECHO 01/05/2024 : In a fibUS carotid 02/02/2024 On ASAOn coreg 3.125mg bidOn dipyridamo le 75mg qidOn isosorbide ER 30mg dailyOn NTGNot on sotalol 80mg bidOn torsemide 20mg dailyNot on valsartan 160mg bid, d/c 04/12/2024 On entresto 97-103mg bid Dr Wyman 04/12/[address] Wyman, INR to be done by [facility] is now to get another procedure done by Dr Wyman as per his history 06/05/2024 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 667680414 E11.9 On jardiance 10mg dailyNot on metformin 1000mg dailyBack on Ozempic 2mg weekly as he feels that his diarrhea has improved, advised to stop if getting any procedure 06/05/2024 Get labs Hyperlipidemia 21807927 E78.5 On atorvastat in 40mg dailyGet labs Vitamin D deficiency 347 68515 E55.9 Urinary incontinence 165 774404 R32 On finasterid e 5mg dailyOn flomax renewed 06/05/2024 Gastroesop hageal reflux disease without esophagitis 611490216 K21.9 On pantoprazo le 40mg dailyGet EGD done, has seen Dr Spears Chronic pain 04161602 G8 9.29 Advised not to take any [...] Bonnie gabapentin Sees Dr Watters Atrial fibrillation 0633 [address] 05/22/[address] Wyman Obstructiv e sleep apnea syndrome 33971008 G47.33 Dr Tyson 08/10/2022 Proteinuria 33379439 R80 .9 Not on kerendiaDr Ruiz 03/27/2024 Pain of le ft knee joint 7673513861 92822 M25.562 José Miguel PRASAD 01/25/2024 , s/p kenalog Diarrhea 92799484 R19.7 Has stopped the metformin, ozempicHis opiates [...] 06/05/2024 : Get EGD and C-scope Neuropathy 569896468 G62 .9 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 Is on qutenza (capsacin) Pruritic rash 25880755 L 28.2 Has noted a rash underneath the abdominal fold, none today, but has used clot-betam ethasone in the past with good reliefRene w the clotrimazo le-betamet hasone cream as needed Lesion of skin of face 1687468275 06 L98.9 [facility]olog ist [facility] [place] [facility] noted on the L scalp and R mid neck [id number] Nahed bryant MD S_G Internal Med [facility] [address] [place] [address] 09/04/2024 11:32:25 09/04/2024 12:23:42 Screening - NAD 505949803 Z13.9 C-scope: Get this done Get yearly flu shotGet TdapGet Shingrix vaccineGet PCV #20Get COVID 19 vaccineGet RSV vaccine RTC in 3 months, do labs ER if worse, he did verbalize his understand ing of the above Coronary arteriosclerosis 12168572 I25.10 ECHO 01/05/2024 : In a fibUS [...] 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 142334028 E11.9 On jardiance 10mg dailyNot on metformin 1000mg dailyBack on Ozempic 2mg weekly as he feels that his diarrhea has improved, advised to stop if getting any procedure 06/05/2024 Get labs Hyperlipidemia 63792624 E78.5 On atorvastat in 40mg dailyGet labs Vitamin D deficiency 347 92718 E55.9 Urinary incontinence 165 675381 R32 On finasterid e 5mg dailyOn flomax renewed 06/05/[address] Mares 09/04/2024 Gastroesop hageal reflux disease without esophagitis 049450568 K21.9 On pantoprazo le 40mg dailyGet EGD done, has seen Dr Spears Chronic pain 79391931 G8 9.29 Advised not to take any NSAIDs![place] ds to see pain management , unable [...] Dr Wyman Obstructiv e sleep apnea syndrome 48360766 G47.33 Dr Tyson 08/10/2022 Proteinuria 49223707 R80 .9 On kerendiaLo w protein, more protein in diet and see nephrology Dr Ruiz 03/27/2024 Pain of le ft knee joint 1356165708 16309 M25.562 José Miguel PRASAD 01/25/2024 , s/p kenalog Diarrhea 80128957 R19.7 Has stopped the metformin, ozempicHis opiates [...] : To get EGD and C-scope Neuropathy 556640176 G62 .9 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 Is on qutenza (capsacin) Pruritic rash 36546592 L 28.2 Has noted a rash underneath the abdominal fold, none today, but has used clot-betam ethasone in the past with good reliefRene w the clotrimazo le-betamet hasone cream as needed Lesion of skin of face 0835606231 06 L98.9 Sees his dermatolog ist in [facility] hyperemic lesion noted on the L scalp and R mid neck Erectile dysfunction 860 641638 F52.21 On sildenafil Does well [id number] Rafael Mares MD [facility] [address] [place] [address] 09/12/2024 13:53:44 09/12/2024 15:13:23 Urinary incontinence 471991018 R32 Benign pro static hyperplasia with outflow obstruction 858115882 N40.1 [id number] Nahed bryant MD [facility] Internal Med [facility] [address] [facility] [address] 12/06/2024 09:01:34 12/06/2024 09:45:25 Screening - NAD 722700186 Z13.9 C-scope: As per Dr Spears, EGD/C-scop e: 08/17/2024 Get yearly flu shotGet TdapGet Shingrix vaccineGet PCV #20Get COVID 19 vaccineGet RSV vaccine RTC in 3 months, do labs ER if worse, he did verbalize his understand ing of the above Coronary arteriosclerosis 46226348 I25.10 ECHO 01/05/2024 : In a fibUS [...] 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.] Dr Wyman Obstructiv e sleep apnea syndrome 03619725 G47.33 Dr Tyson 08/10/2022 Proteinuria 25230458 R80 .9 On kerendiaLo w protein, more protein in diet and see nephrology Dr Ruiz 03/27/2024 Pain of le ft knee joint 0850347870 53346 M25.562 José Miguel PRASAD 01/25/2024 , s/p kenalog Diarrhea 71999666 R19.7 Has stopped the metformin, ozempicHis opiates [...] 12/06/2024 : Dr Spears 11/16/2024 OV Neuropathy 644051556 G62 .9 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 Is on qutenza (capsacin) Pruritic rash 56945020 L 28.2 Has noted a rash underneath the abdominal fold, none today, but has used clot-betam ethasone in the past with good reliefRene w the clotrimazo le-betamet hasone cream as needed Lesion of skin of face 9789985033 06 L98.9 [place] dermatolog ist [place] , [place] hyperemic lesion noted on the L scalp and R mid neck Erectile dysfunction 860 868156 F52.21 On sildenafil Does well Paratrache al lymphadenopathy 90310402 R59.0 Dr Ruiz 11/01/2024 : f/u in [address] scan [id number] Rafael Mares MD [facility] [address] [address] 12/14/2024 15:01:37 12/14/2024 16:00:20 Urinary incontinence 077842688 R32 Benign pro static hyperplasia with outflow obstruction 199717734 N40.1 Health Concerns Section Related Observation LastModified by Organization Kvng ls LastModified Time None Recorded Concern Status LastModified by Organization Details LastModified Time None Recorded Advance Directives Directive N: Payers Encounter Date Sequence Insurance Name Policy Number Policy Umana Covered Member ID Umana Member ID Guarantor Name 06/05/2024 1 [place] Mannie Cabello [id number] Mannie Cabello 06/05/2024 2 [place] [id number] Mannie Cabello [id number] Mannie Cabello 09/04/2024 1 [place] Mannie Cabello [id number] Mannie Cabello 09/04/2024 2 [place] [id number] Mannie Cabello [id number] 22 Mannie Cabello 09/12/2024 1 [place] Mannie Cabello [id number] Mannie Cabello 09/12/2024 2 [place] [id number] Mannie Cabello [id number] 22 Mannie Cabello 12/06/2024 1 [place] Mannie Cabello [id number] Mannie Cabello 12/06/2024 2 [place] [id number] Mannie Cabello [id number] 22 Mannie Cabello 12/14/2024 1 [place] Mannie Cabello [id number] 05 Mannie Cabello 12/14/2024 2 [place] [id number] Mannie Cabello [id number] 22 Mannie Cabello Notes Date Note Type Note Provider Name [...] on 05/03/2024 Nahed Patterson MD [address], [address], [place], [address], [facility] [employer] 06/05/2024 15:48:10 09/04/2024 text/html OV 10/20/2023:He re [...] well today Nahed Patterson MD [address], [place], [address], [facility] [employer] [facility] [employer] 09/06/2024 18:53:52 09/12/2024 text/html this patient is [...] Mares MD [address], [place], [address], [facility] [employer] [facility] [employer] 09/12/2024 16:16:03 12/06/2024 text/html OV 10/20/2023:He re [...] Patterson MD [address], [place], [address], [facility] [employer] [facility] [employer] 12/06/2024 12:26:32 12/14/2024 text/html this patient has [...] is taking it Rafael Mares MD [address] [facility] [address], [place], [address], [facility] 12/14/2024 16:12:44
--- OUTSIDE RECORDS SUMMARY | 2025-04-09 09:12 | XMS_ITS | Encounter Summary ---
Author Organization [facility] Address [address] [place] [address] Care Team Providers Care Hearing Aid Assistant Name Role Phone Bennie Nova MD Primary Care Provider Alison jeronimo Encounter Details Date Type Department Care Team (Late st Contact Info) Description 04/13/2024 Lab Requisition [facility] - DermPath Lab [address] [facility] [place] [address] Lou Clark PA-C [address] [place] [address] Neoplasm of uncertain behavior of skin Social History Tobacco Use Types Packs/Day Years Used Date Smoking Tobacco: Never Alcohol Use Standard Drinks/Week Comments Not Asked 0 (1 standard drink = 0.6 oz pur e alcohol) Sex and Gender Information Value Date Recorded Sex Assigned at Not on file Legal Sex Male 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 Gender Identity Not on file Sexual Orientation Not on file documented as of this encounter Plan of Treatment Not on file documented as of this encounter Procedures Procedure Name Priority Date/Time Associated Diagnosis Comments DERMATOPATHOLOGY Routine 04/13/2024 12:0 0 AM CDT Neoplasm of uncertain behavior of skin documented in this encounter Results * DERMATOPATHOLOGY (04/13/2024 12:00 AM CDT) Case Report Dermatopathology Report Case: [id number] Authorizing Provider: Lou Clark, Collected: 04/13/2024 12:00 AM HELEN Ordering Location: [facility] - Received: 04/16/2024 11:01 AM DermPath Lab Pathologist: Kassidy Mann MD Specimens: A) - Skin, right neck B) - Skin, left forehead 1:29 PM CDT DERMATOPATHOLOGY LABORATORY Final Diagnosis Specimen A. 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 Billing Codes Specimen Charges Stain Charges 90297 74563 1 1 4 1:29 PM CDT DERMATOPATHOLOGY LABORATORY Embedded Images 1:29 PM CDT DERMATOPATHOLOGY LABORATORY Pathology/Cytology TISSUE SPECIMEN FROM SKIN / Unknown 04/13/2024 04/16/2024 11:01 AM CDT Miscellaneous samples (specimen) TISSUE SPECIMEN FROM SKIN / Unknown 04/13/2024 04/16/2024 11:01 AM CDT Lou Clark PA-C LAB - PATHOLOGY/CYTO LOGY ORDERABLES Final Result DERMATOPATHOLOGY LABORATORY [facility] - Department of Dermatology [facility] [address] [place] [address], [address] [phone] documented in this encounter Visit Diagnoses Diagnosis Neoplasm of uncertain behavior of skin documented in this encounter Care Teams Hearing Aid Assistant Relationship Specialty Start Date End Date Bennie Nova MD PCP - General Internal Medicine 10/10/12 documented as of this encounter
--- OUTSIDE RECORDS SUMMARY | 2025-04-09 09:12 | XMS_ITS | CONTINUITY OF CARE DOCUMENT ---
Author Name brant guo Address Unknown Organization [facility] Address [address] [place] [address] Phone [phone] Care Team Providers Care Production Maintenance Mechanic Name Role Phone Karl Wyman MD Unavailable [...] PCM - Biotronik ( MRI Safe) active Kral Wyman MD rv lead i n septum by sk Mitral regurgitation, severe active Kvng Jenkins MD Adenomatous colonic polyp active Karl barfield MD ENCOUNTERS Date Type Provider Location Encounter Diag nosis - In-person encounter Office Visit Karl Wyman MD [place] MicroalbuminuriaAdenomatous colonic polyp - In-person encounter Office Visit Karl Wyman MD [place] - In-person encounter Office Visit Karl Wyman MD [place] - In-person encounter Office Visit Kvng Jenkins MD [facility] Mitral regurgitation, severe - In-person encounter Office Visit Karl Wyman MD [place] [facility] CAD s/p CABG;carotid plaueSystolic heart failure, chronic - In-person encounter Office Visit Karl Wyman MD [place] [facility] CAD s/p CABG;carotid plauePulmonary hypertensionS/P Dual chamb PCM - Biotronik ( MRI Safe) - In-person encounter Office Visit Meet Naranjo MD [place] [facility] - In-person encounter Office Visit Karl Wyman MD [place] [facility] CAD s/p CABG;carotid plaueOSA, adult;cpap in tolDiabetes mellitus, type 2Systolic heart failure, chronicScreeningPulsatile tinnitus, bilateralBradycardia, severe - In-person encounter Office Visit Meet Naranjo MD [place] - In-person encounter Office Visit Meet Naranjo MD [place] - In-person encounter Office Visit Meet Naranjo MD [place] [facility] ScreeningPVCsSick sinus syndrome - In-person encounter Office Visit Karl Wyman MD [place] [facility] mechanical aortic valve replacementAtrial fib;NML TSHMorbid obesitySystolic heart failure, chronicDiarrheaIRON DEFICIENCYFAMILY HISTORY OF HEART DISEASE - In-person encounter Office Visit Lincoln Maldonado MD [place] - In-person encounter Office Visit Karl Wyman MD [place] CAD s/p CABG;carotid plauemechanical aortic valve replacementHypertensionHyperlipi demia;NEG CRP and lpaOSA, adult;cpap in tolAtrial fib;NML TSHMorbid obesityDiabetes mellitus, type 2Systolic heart failure, chronic VITAL SIGNS Date Observation Value Provider Body Mass Index (Ratio) 35.41 kg/m2 Ronda Wyman MD blood pressure, diastolic 79 mm[Hg] [facility], systolic 131 mm[Hg] Gissellemanny bailey [place] oxygen saturation, oximetry 99 % [facility] pulse rate 85 /min [facility] blood pressure, cuff size regular [facility] weight E&M 246.8 [lb_av] [facility] height E&M 70 [in_i] [facility] Body Mass Index (Ratio) 34.43 kg/m2 Ronda [...] Isa Ruiz blood pressure, cuff size regular [facility] weight E&M 242.6 [lb_av] Isa Waller height [...] lder height E&M 70 [in_i] Brenda Gruenenfe [facility] Body Mass Index (Ratio) 34.86 [...] ruenenfelder pulse rate 70 /min Brenda Tomas [facility] weight E&M 243 [lb_av] Brenda Tomas [facility] height E&M 70 [in_i] Brenda Tomas [facility] Body Mass Index (Ratio) 35.01 kg/m2 Ronda Wyman MD weight E&M 244 [lb_av] [facility] blood pressure, cuff size regular Tr lisette Null blood pressure, diastolic 92 mm[Hg] lisette Null blood pressure, systolic 157 mm[Hg] [facility] oxygen saturation, oximetry 97 % [facility] respiratory rate E&M 18 /min [facility] pulse rate 67 /min [facility] Body Mass Index (Ratio) 34.86 kg/m2 Estiven Naranjo MD oxygen saturation, oximetry 97 % Brenda Vargas respiratory rate E&M 12 /min Brenda potter pulse rate 66 /min Brenda Marin [facility] weight E&M 243 [lb_av] Brenda Marin [facility] height E&M 70 [in_i] Brenda [...] Sachineld oxygen saturation, oximetry 98 % [facility] respiratory rate E&M 12 /min [facility] pulse rate 90 /min Brenda [...] Ronda Wyman MD height E&M 70 [in_i] [facility] blood pressure, cuff size regular [facility] blood pressure, diastolic 77 mm[Hg] [facility] blood pressure, systolic 148 mm[Hg] [facility] pulse rate 92 /min [facility] oxygen saturation, oximetry 99 % [facility] respiratory rate E&M 15 /min [facility] iller weight E&M 244 [lb_av] [facility] ALLERGIES Allergy Name Onset Date [...] s Chay Goetz RN coagulation managed by hCay Goetz RN international normalized ratio (INR) 1.3 [...] pantoprazole 40 mg tablet,delayed release (DR/EC) active [facility] alprazolam 1 mg tablet completed - Karl Wyman MD sotalol 80 mg tablet completed - [facility] torsemide 20 mg tablet completed one tab as needed - Karl Wyman MD aspirin 81 mg capsule completed - [facility] hydrocodone-aceta minophen 10-300 mg tablet completed - Karl Wyman MD sildenafil 100 mg tablet completed - Karl Wyman MD albuterol sulfate 90 mcg/actuation HFA aerosol inhaler active Rose Mary Vasquez omega 3 completed - [facility] furosemide 20 mg tablet completed - [facility] rosuvastatin 10 mg tablet completed - Chay [...] history of marijuana use no Julia Ventimiglia [employer] drug use no Julia Ventimig heidi [employer] alcohol use no Julia Ventimig heidi [employer] smoking status Never smoker Julia Ventim iglia [employer] FUNCTIONAL STATUS Date Observation Value Provider HRA, [...] Management Plan continue current therapy Julia Giles [employer] INSURANCE PROVIDERS Payer name Policy type / Coverage type [place] red republican [place] [employer] Medicare [id number] [facility] [id number] ADVANCE DIRECTIVES Name Date DISCUSSED - NO [...] a .pacemaker Orders: 9203 MOD 45-59 min (CPT-[id number]) Meet Naranjo MD Electrophysiology:wo re holter in [...] Tablet (Valsartan) Metformin 1,000 Mg Tablet (Metformin) [facility] Cardiology:untreated with AHI of 8=48 and oxygen saturation dropping to 80% w ill refer to pulmonary for further management [facility] Cardiology:with EF o f 60% on [...] (Isosorbide mononitrate) Valsartan 160 Mg Tablet (Valsartan) [facility] Cardiology: T he following medications were removed from the medication list: Furosemide 20 Mg Tablet (Furosemide) Sotalol 80 Mg Tablet (Sotalol) His updated medication list for this problem includes: Sotalol 80 Mg Tablet (Sotalol) Torsemide 20 Mg Tablet (Torsemide) Valsartan 160 Mg Tablet (Valsartan) Julia Giles [facility] Cardiology:Hx of CAB G and stents [...] Extended Release 24 Hr (Isosorbide mononitrate) Julia Giels [facility] Cardiology:currently in afib r ate is [...] obtain his recent tele monitor from previous junior technical writer T he following medications were removed from the medication list: Sotalol 80 Mg Tablet (Sotalol) His updated medication list for this problem includes: Dipyridamole 75 Mg Tablet (Dipyridamole) ..... 1 tablet by mouth four times a day Sotalol 80 Mg Tablet (Sotalol) Nitroglycerin 0.4 Mg Tablet, Sublingual (Nitroglycerin) Isosorbide Mononitrate 30 Mg Tablet Extended Release 24 Hr (Isosorbide mononitrate) Julia Giles [facility] Date Name PROTHROMBIN TIME WIT H [...] W/EGFR Carotid Duplex Bilat eral DLCO - 83755 FRC - 67407 FVC - 53510 CXR- PA/Lat FOLATE, SERUM VITAMIN B12 IRON [...] MD complete d FVC / MVV - 44411 Karl Wyman MD c ompleted SpO2 w/o 6min walk/titration Karl Wyman MD completed SVC - 52389 Karl Wyman MD complet ed DLCO - 65920 Karl Wyman MD comple venus Gamal Pacheco [...]
--- OUTSIDE RECORDS SUMMARY | 2025-04-09 09:12 | XMS_ITS | Patient Health Record ---
Author Organization [facility] Address [address] [place] [address] Care Team Providers Care Waste Water Or Water Plant Operator Name Role Phone Gigi Justin Unavailable [phone] Reason For Referral No Information Medications Medication SIG (Take, Route, Frequency, Duration) Notes Start Date End Date Status Ergocalciferol 1.25 MG (40587 UT) 1 capsule Orally Once a week for 90 day(s) 04/25/2024 09/29/2025 Active Calcitriol 0.25 MCG 1 capsule Orally Onc e a day for 90 day(s) 04/25/2024 09/29/2025 Active Social History Sex Assigned At : Social History Observation Description Sex Assigned At Male Problems Problem Type SNOMED Code ICD Code Onset Dates Problem Status W/U Status Risk Notes Problem Hyperlipidemia (19399447) Hyperlipidemia, unspecified (E78.5) Active confirmed Problem Anxiety disorder (908754050) Anxiety disorder, unspecified (F41.9) Active confirmed Problem Chronic pain (93001997) Other chronic pain (G89.29) Active confirmed Problem Aortic valve disorder (5243929) Nonrheumatic aortic (valve) stenosis (I35.0) Active confirmed Problem Heart failure (62089497) Heart failure, unspecified (I50.9) Active confirmed Problem Chronic kidney disease stage 2 (773967124) Chronic kidney disease, stage 2 (mild) (N18.2) Active confirmed Problem Renal osteodystrophy (76108944) Renal osteodystrophy (N25.0) Active confirmed Problem Chronic fatigue syndrome (disorder) (03592898) Chronic fatigue, unspecified (R53.82) Active confirmed Problem Glycosuria (86610887) Glycosuria (R81) Active confirmed Problem History of malignant neoplasm of larynx (220701111) 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) Active confirmed Problem Benign prostatic hypertrophy without outflow obstruction (602650195) Benign prostatic hyperplasia without lower urinary tract symptoms (N40.0) Active confirmed Problem Coronary artery disease (48134443) CAD (coronary artery disease) (I25.10) Active confirmed Encounters Encounter Location Date Provider Diagnosis [facility] [address] [place] [address] 04/25/2024 Gigi Justin Chronic kidney disea se, stage 3a N18.31 ; Anxiety disorder, unspecified F41.9 ; Chronic fatigue, unspecified R53.82 ; Renal osteodystrophy N25.0 and Heart failure, unspecified I50.9 [facility] [address] [place] [address] 12/12/2024 Gigi Justin Chronic kidney disea se, stage 3a N18.31 ; 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 ; Hyperlipidemia, unspecified E78.5 ; CAD (coronary artery disease) I25.10 and Benign prostatic hyperplasia without lower urinary tract symptoms N40.0 [facility] [address] [place] [address] 01/02/2025 Gigi Justin Chronic kidney disea se, stage 2 (mild) N18.2 ; Anxiety disorder, unspecified F41.9 ; Chronic fatigue, unspecified R53.82 ; Renal osteodystrophy N25.0 ; Heart failure, unspecified I50.9 ; 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 ; Hyperlipidemia, unspecified E78.5 ; CAD (coronary artery disease) I25.10 and Benign prostatic hyperplasia without lower urinary tract symptoms N40.0 [facility] [address] [place] [address] 02/13/2025 Gigi Justin Chronic kidney disea se, [...] G89.29 and Nonrheumatic aortic (valve) stenosis I35.0 [facility] [address] [place] [address] 12/19/2024 Gigi Justin [place] [facility] [address] [address] 01/02/2025 [facility] [address] [facility] [address] [place] [address] 04/25/2024 Gigi Justin Assessments Encounter Date Diagnosis (ICD Code) Assessment Notes Treatment Notes Treatment Clinical Notes Section Notes 04/25/2024 Chronic kidney disease, stage 3a (ICD-10 - N18.31) 12/12/2024 Personal history of malignant neoplasm of larynx (ICD-10 - Z85.21) 12/12/2024 Chronic kidney disease, stage 3a (ICD-10 - N18.31) 01/02/2025 Chronic kidney disease, stage 2 (mild) (ICD-10 - N18.2) 02/13/2025 Chronic kidney disease, stage 2 (mild) (ICD-10 - N18.2) 02/13/2025 Anxiety disorder, unspecified (ICD-10 - F41.9) 01/02/2025 Anxiety disorder, unspecified (ICD-10 - F41.9) 12/12/2024 Hyperlipidemia, unspecified (ICD-10 - E78.5) 04/25/2024 Anxiety disorder, unspecified (ICD-10 - F41.9) 04/25/2024 Chronic fatigue, unspecified (ICD-10 - R53.82) 12/12/2024 CAD (coronary artery disease) (ICD-10 - I25.10) 01/02/2025 Chronic fatigue, unspecified (ICD-10 - R53.82) 02/13/2025 Chronic fatigue, unspecified (ICD-10 - R53.82) 02/13/2025 Renal osteodystrophy (ICD-10 - N25.0) 01/02/2025 Renal osteodystrophy (ICD-10 - N25.0) 04/25/2024 Renal osteodystrophy (ICD-10 - N25.0) 12/12/2024 Benign prostatic hyperplasia without lower urinary tract symptoms (ICD-10 - N40.0) 04/25/2024 Heart failure, unspecified (ICD-10 - I50.9) 01/02/2025 Heart failure, unspecified (ICD-10 - I50.9) 02/13/2025 Heart failure, unspecified (ICD-10 - I50.9) 02/13/2025 Personal history of malignant neoplasm of larynx (ICD-10 - Z85.21) 01/02/2025 Personal history of malignant neoplasm of larynx (ICD-10 - Z85.21) 01/02/2025 Hyperlipidemia, unspecified (ICD-10 - E78.5) 02/13/2025 Hyperlipidemia, unspecified (ICD-10 - E78.5) 01/02/2025 CAD (coronary artery disease) (ICD-10 - I25.10) 02/13/2025 CAD (coronary artery disease) (ICD-10 - I25.10) 02/13/2025 Benign prostatic hyperplasia without lower urinary tract symptoms (ICD-10 - N40.0) 01/02/2025 Benign prostatic hyperplasia without lower urinary tract symptoms (ICD-10 - N40.0) 02/13/2025 Glycosuria (ICD-10 - R81) 02/13/2025 Other chronic pain (ICD-10 - G89.29) 02/13/2025 Nonrheumatic aortic (valve) stenosis (ICD-10 - I35.0) Plan Of Treatment Next Appt Details Provider Name:Gigi Justin , 06/12/2025 02:30:00 PM, [address], [facility] [address], [place], [address],
--- OUTSIDE RECORDS SUMMARY | 2025-04-09 09:13 | XMS_ITS | Clinical Summary ---
Author Organization [facility] Address [address] [place] [address] Care Team Providers Care Patient Ambassador Name Role Phone Bennie Nova MD Primary Care Provider Allergies No known active allergies Medications empagliflozin (Jardiance) 10 mg tablet daily Active famotidine (Pepcid) 20 mg tablet TAKE 1 TABLET AT BEDTIME. Active pantoprazole DR (PROTONIX) 20 mg EC tablet 2 times daily 6 Active traMADoL (ULTRAM) 50 mg tablet TAKE 1 TABLET EVERY 4 TO 6 HOURS NEEDED FOR PAIN. Active warfarin (Coumadin) 7.5 mg tablet every other day 5 Active vitamin B complex capsule Take 1 [...] total) by mouth daily 90 tablet 3 5 026 Active ezetimibe (ZETIA) 10 mg tablet Take 1 tablet (10 mg total) by mouth daily 90 tablet 3 5 026 Active sacubitriL-valsa rtan (ENTRESTO) 97-103 mg tabletIndication s:chronic heart failure Take 1 tablet by mouth 2 (two) times a day 180 tablet 3 5 026 Active dipyridamole (PERSANTINE) 75 mg tablet Take 1 tablet (75 mg total) by mouth 4 (four) times a day 360 tablet 3 5 026 Active Active Problems Problem Noted Date Diagnosed Date Cardiac pacemaker in situ 02/13/2025 Overview (02/19/2025): Biotronik Amvia Edge Dual Pacemaker. Dx; SSS, Afib, PVC's. DOI 03/08/2024-[facility]. Biotronik remote. Chronic atrial fibrillation, unspecified 025 Other thrombophilia 02/05/2025 Malabsorption 06/29/2016 History of bariatric surgery 03/04/2016 Eating disorder, unspecified 09/30/2015 Chronic coronary artery disease 09/18/2015 Diabetes mellitus 09/18/2015 Benign essential hypertension 09/18/2015 Obstructive sleep apnea syndrome 09/18/2015 Morbid obesity 09/18/2015 Arthritis 05/01/2015 Encounters Date Type Department Care Team Description 03/22/2025 Anticoagulation Visit [facility] [address] [facility] [address] [place] [phone] Hilda Robledo RN 03/07/2025 Anticoagulation Visit [facility] [address] [place] [phone] Lou White RN 02/25/2025 Anticoagulation Visit [facility] [address] [place] [address] [place] [phone] Hilda Robledo RN 02/25/2025 Telephone [facility] [address] [place] [address] [place] [phone] Jonah Momin MD 02/13/2025 Orders Only [facility] [address] [facility] [address] [address] Jonah Momin MD Cardiac pacemaker in situ (Primary Dx); Chronic atrial fibrillation, unspecified (HCC); SSS (sick sinus syndrome) (HCC) 02/13/2025 Telephone [facility] [address] [place] [address] [place] [phone] Jonah Momin MD 02/12/2025 Anticoagulation Visit [facility] [address] [place] [address] [place] [phone] Sameer Graham RN 02/11/2025 Orders Only [facility] [address] [place] [address] [place] [phone] Nereyda Hutchinson MD 02/06/2025 Anticoagulation Visit [facility] [address] [place] [address] [place] [phone] Hilda Robledo, CHRIS 02/05/2025 9:15 AM CDT Office Visit [facility] [address] [place] [address] [place] [phone] Jonah Momin MD Atherosclerosis of [place] coronary artery of [place] heart without angina pectoris; Chronic atrial fibrillation, unspecified (HCC); Other thrombophilia (HCC) 02/05/2025 Orders Only [facility] [address] [place] [address] [place] [address] [phone] Yessica Larios MD 02/05/2025 Telephone [facility] [address] [place] [address] [place] [address] [phone] Jonah Momin MD from Last 3 Months [...] on file Legal Sex Male 12:10 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 Gender Identity Not on file Sexual Orientation Not on file Obstetrics History Last Filed Vital Signs Vital Sign Reading Time Taken Comments Blood Pressure 120/68 02/05/2025 8:57 AM CDT Pulse 85 02/05/2025 8:57 AM CDT Temperature 36.7 C (98.1 F) 08/17/2024 9:05 AM CDT Respiratory Rate 16 10/02/2024 12:46 PM PRECIPITATE WASHER Oxygen Saturation 97% 02/05/2025 8:57 AM CDT Inhaled Oxygen Concentration - - Weight 108.4 kg (239 lb) 02/05/2025 8:57 AM CDT Height 175.3 cm (5' 9) 02/05/2025 8:57 AM CDT Body Mass Index [...] Screening-Colonoscopy 08/17/20342023 Medical Devices Implanted Type Area Behavioral Interventionist Device Identifier Shelf Expiration Date Model / Serial / Lot Pacemaker Pacemaker N/A: Heart Plate Plate Left: Knee Prosthetic Valve Prosthetic Valve Bilateral : Heart Procedures Procedure Name Priority Date/Time Associated Diagnosis Comments PROTIME-INR Routine 03/22/2025 PROTIME-INR Routine 03/05/2025 PROTIME-INR Routine 02/25/2025 PROTIME-INR Routine 02/12/2025 POCT LIPID PANEL Routine 02/05/2025 8:45 AM CDT Atherosclerosis of [place] coronary artery of [place] heart without angina pectoris ELECTROCARDIOGRAM REPORT Routine 02/05/2025 Chronic atrial fibrillation, unspecified (HCC) COLONOSCOPY 08/17/2024 8:17 AM CDT EGFR STAT 07/29/2023 10:21 AM CDT from Last 3 Months or Most Recently Relevant to Health Maintenance Results * (ABNORMAL) Protime-INR (03/22/2025) INR 3.70(A) 0.90 - 1.10 EXTERNAL LAB Blood Result [facility] Provider MD LAB BLOOD ORDERABLES Kim l Result EXTERNAL LAB * (ABNORMAL) Protime-INR (03/05/2025) INR 3.10(A) 0.90 - 1.10 EXTERNAL LAB Blood Result [facility] Provider MD LAB BLOOD ORDERABLES Kim l Result EXTERNAL LAB * (ABNORMAL) Protime-INR (02/25/2025) INR 5.50(A) 0.90 - 1.10 EXTERNAL LAB Blood Result [facility] Provider MD LAB BLOOD ORDERABLES Kim l Result EXTERNAL LAB * (ABNORMAL) Protime-INR (02/12/2025) INR 2.00(A) 0.90 - 1.10 EXTERNAL LAB Blood 02/12/2025 Result [facility] Historical Provider MD LAB BLOOD ORDERABLES Kim l Result EXTERNAL LAB * POCT lipid panel (02/05/2025 8:45 AM [...] Spears MD - 08/17/2024 8:17 AM CDT [facility] GI ENDOSCOPY Patient Name: Reggie Nevarez Procedure Date: 08/17/2024 8:17 AM Date of : 1950 Admit Type: Outpatient Age: 74 Gender: Male Attending MD: Meryl Spears M.D. Room: [facility] ENDOSCOPY ROOM 05 Note Status: [...] polypectomy, one hemostaticclip was successfully placed. Clip water quality control engineer: Anagear. Therewas no bleeding at the end of [...] Resected and retrieved. Clip was placed. Clip water quality control engineer: Datil echoBase. - Diverticulosis in the left colon. Biopsied. - The distal rectum and anal verge are normal on retroflexion view. Recommendation: - Resume previous diet. - Continue present medications. - Await pathology results. Meryl Spears M.D. Meryl Spears M.D. 08/17/2024 9:11:17 AM . Number of Addenda: 0 Note Initiated On: 08/17/2024 8:17 AM Recognized by the [place] for promoting quality in endoscopy Meryl Spears MD ENDOSCOPY PROCEDURES Kim l Result * eGFR (07/29/2023 10:21 AM CDT) eGFR >90 90 - 130 mL/min/1. 73 m2 [facility] Comment: Interpretive Data Reference Interval Normal >/= [...] Webb MD LAB BLOOD ORDERABLES Final Result Performing Organization Address City/State/[facility] [place] Phone Number [facility] [place] [address] from Last 3 Months or Most Recently Relevant to Health Maintenance Insurance MEDICARE [facility] MEDICARE [facility] MEDICARE SUPPLEMENT MEDICARE [facility] MEDICARE SUPPLEMENT Care Teams Patient Ambassador Relationship Specialty Start Date End Date Bennie Nova MD [address] [place] [address] PCP - General Cardiovascular Disease 06/02/21
--- OUTSIDE RECORDS SUMMARY | 2025-04-09 09:13 | XMS_ITS ---
Author Organization [facility] Address [address] [facility] [address] [place] [address] Care Team Providers Care Advanced Practice Registered Nurse Name Role Phone Gigi Justin Unavailable [phone] Social History Sex Assigned At : Social History Observation Description Sex Assigned At Male Problems Problem Type SNOMED Code ICD Code Onset Dates Problem Status W/U Status Risk Notes Problem Glycosuria (57733777) Glycosuria (R81) Active confirmed Problem Chronic pain (96411903) Other chronic pain (G89.29) Active confirmed Problem Nonrheumatic aortic (valve) stenosis (I35.0) Active confirmed Encounters Encounter Location Date Provider Diagnosis [place] [facility] [address] [facility] [address] [place] [address] 02/13/2025 Gigi Justin Chronic kidney disea se, [...] Next Appt Details Provider Name:Gigi Nhan , 06/12/2025 02:30:00 PM, [address] [place] [address], [place], [place], [facility], Progress Notes * MANNIE CABELLODOB:1950 ( 75 yo F)Acc No.[id number]:02/13/2025 Progress Notes Patient: MANNIE APARICIO Provider: Nayeli MAE MD, F.A.C.P, F.A.S.N. :1950 A ge:75 Y S ex:Female Date:02/13/2025 Address:[address] [place] [address] Subjective: * Chief Complaints: * * Medical [...] Treatment: * Billing Information: * Visit Code: 85645 Office Visit, Est Pt., Level 4. * Procedure Codes: * Electronic signature of Fox Justin MD on 04/09/2025 at 09:12 AM CDT Sign off status: Pending * Provider: Nayeli MAE MD, F.A.C.P, F.A.S.N. Date: 0 02/13/2025 Generated for Printing/Faxing/eTransmitting on: 0 04/09/2025 09:12 AM CDT
--- OUTSIDE RECORDS SUMMARY | 2025-04-09 09:13 | XMS_ITS ---
Author Organization [facility] Address [address] [place] [address] [place] [address] Care Team Providers Care Retail Product Advisor Name Role Phone Justin Gigi Unavailable [phone] Social History Sex Assigned At : Social History Observation Description Sex Assigned At Male Encounters Encounter Location Date Provider Diagnosis [place] [facility] [address] [facility] [address] [place] [address] 12/26/2024 Gigi Justin Plan Of Treatment Next Appt Details Provider Name:Gigi Justin , 06/12/2025 02:30:00 PM, [address] [facility] [address], [place], [address], Progress Notes * MANNIE CABELLODOB:1950 ( 75 yo F)Acc No.[id number]:12/26/2024 Progress Notes Patient: MANNIE APARICIO Provider: Nayeli MAE MD, F.Jose.C.P, F.A.S.N. :1950 A ge:74 Y S ex:Female Date:12/26/2024 Address:[address] [place], [place] [address], [place] [address] Subjective: * Chief Complaints: * * Medical History: Objective: * Vitals: Assessment: Plan: * Treatment: * Billing Information: * Visit Code: * Procedure Codes: * Electronic signature of Fox Justin MD on 04/09/2025 at 09:12 AM CDT Sign off status: Pending * Provider: Nayeli MAE MD, Brandon.Jose.C.P, F.A.S.N. Date: 12/26/2024 Generated for Printing/Faxing/eTransmitting on: 04/09/2025 09:12 AM CDT
--- OUTSIDE RECORDS SUMMARY | 2025-04-09 09:13 | XMS_ITS | Referral Summary ---
Author Organization [facility] Address [address] [place] [address] Care Team Providers Care Wheel Presser Name Role Phone Bennie Nova MD Primary Care Provider Encounters Date Type Department Care Team Description 03/22/2025 Anticoagulation Visit [facility] Cardiology [address] [facility] [address] [place] [phone] Hilda Robledo, RN 03/07/2025 Anticoagulation Visit [facility] Cardiology [address] [place] [address] [address] [place] [phone] Lou White, CHRIS 02/25/2025 Anticoagulation Visit [facility] Cardiology [address] [place] [address] [address] [place] [phone] Hilda Robledo, RN 02/25/2025 Telephone [facility] Cardiology [address] [place] [address] [address] [place] [phone] Jonah Momin MD 02/13/2025 Orders Only [facility]iology [address] [facility] [address] [place] [phone] Jonah Momin MD Cardiac pacemaker in situ (Primary Dx); Chronic atrial fibrillation, unspecified (HCC); SSS (sick sinus syndrome) (HCC) 02/13/2025 Telephone [facility]iology [address] [facility] [address] [place] [phone] Jonah Momin MD 02/12/2025 Anticoagulation Visit [facility] Cardiology [facility] [address] [place] [phone] Sameer Graham, RN 02/11/2025 Orders Only [facility] Cardiology [facility] [address] [place] [phone] Nereyda Hutchinson MD 02/06/2025 Anticoagulation Visit [facility] Cardiology [address] [place] [address] [place] [phone] Hilda Robledo RN 02/05/2025 Orders Only [place] [address] [address] [place] [phone] Yessica Larios MD 02/05/2025 Telephone [facility]iology [address] [place] [address] [place] [phone] Jonah Momin MD 02/05/2025 9:15 AM CDT Office Visit [facility] Cardiology [address] [place] [address] [place] [phone] Jonah Momin MD Atherosclerosis of [place] coronary artery of [place] heart without angina pectoris; Chronic atrial fibrillation, [...] Dual Pacemaker. Dx; SSS, Afib, PVC's. DOI 03/08/2024-[facility]. Biotronik remote. 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 Gender Identity Not on file Sexual Orientation Not on file Last Filed Vital Signs Vital Sign Reading Time Taken Comments Blood Pressure 120/68 02/05/2025 8:57 AM CDT Pulse 85 02/05/2025 8:57 AM CDT Temperature 36.7 C (98.1 F) 08/17/2024 9:05 AM CDT Respiratory Rate 16 10/02/2024 12:46 PM MANAGER COMPETITIVE INTELLIGENCE Oxygen Saturation 97% 02/05/2025 8:57 AM CDT Inhaled Oxygen Concentration - - Weight 108.4 kg (239 lb) 02/05/2025 8:57 AM CDT Height 175.3 cm (5' 9) 02/05/2025 8:57 AM CDT Body Mass Index 35.29 02/05/2025 8:57 AM CDT Plan of Treatment Not on file Medical Devices Implanted Type Area Mri Assistant Device Identifier Shelf Expiration Date Model / Serial / Lot Pacemaker Pacemaker N/A: Heart Plate Plate Left: Knee Prosthetic Valve Prosthetic Valve Bilateral : Heart Procedures Procedure Name Priority Date/Time Associated Diagnosis Comments PROTIME-INR Routine 03/22/2025 PROTIME-INR Routine 03/05/2025 PROTIME-INR Routine 02/25/2025 PROTIME-INR Routine 02/12/2025 POCT LIPID PANEL Routine 02/05/2025 8:45 AM CDT Atherosclerosis of [place] coronary artery of [place] heart without angina pectoris ELECTROCARDIOGRAM REPORT Routine 02/05/2025 Chronic atrial fibrillation, unspecified (HCC) COLONOSCOPY 08/17/2024 8:17 AM CDT EGFR STAT 07/29/2023 10:21 AM CDT from Last 3 Months or Most Recently Relevant to Health Maintenance Results * (ABNORMAL) Protime-INR (03/22/2025) INR 3.70(A) 0.90 - 1.10 EXTERNAL LAB Blood Result [facility] Provider MD LAB BLOOD ORDERABLES Kim l Result EXTERNAL LAB * (ABNORMAL) Protime-INR (03/05/2025) INR 3.10(A) 0.90 - 1.10 EXTERNAL LAB Blood Result [facility] Provider MD LAB BLOOD ORDERABLES Kim l Result EXTERNAL LAB * (ABNORMAL) Protime-INR (02/25/2025) INR 5.50(A) 0.90 - 1.10 EXTERNAL LAB Blood Result [facility] Provider MD LAB BLOOD ORDERABLES Kim l Result EXTERNAL LAB * (ABNORMAL) Protime-INR (02/12/2025) INR 2.00(A) 0.90 - 1.10 EXTERNAL LAB Blood 02/12/2025 Result [facility] Provider MD LAB BLOOD ORDERABLES Kim l [...] - 08/17/2024 8:17 AM CDT [facility] GI ENDOSCOPY Patient Name: Reggie Nevarez Procedure Date: 08/17/2024 8:17 AM Date of : 1950 Admit Type: Outpatient Age: 74 Gender: Male Attending MD: Meryl Spears M.D. Room: [facility] ENDOSCOPY ROOM 05 Note Status: [...] polypectomy, one hemostaticclip was successfully placed. Clip candy depositing machine operator: Zigswitch. Therewas no bleeding at the end of [...] Resected and retrieved. Clip was placed. Clip candy depositing machine operator: Zigswitch. - Diverticulosis in the left colon. Biopsied. - The distal rectum and anal verge are normal on retroflexion view. Recommendation: - Resume previous diet. - Continue present medications. - Await pathology results. Meryl Spears M.D. Meryl Spears M.D. 08/17/2024 9:11:17 AM . Number of Addenda: 0 Note Initiated On: 08/17/2024 8:17 AM Recognized by the [place] [employer] for promoting quality in endoscopy Meryl Spears MD ENDOSCOPY PROCEDURES Kim l Result * eGFR (07/29/2023 10:21 AM CDT) eGFR >90 90 - 130 mL/min/1. 73 m2 [facility] Comment: Interpretive Data Reference Interval [...] BLOOD ORDERABLES Final Result Performing Organization Address City/State/ZIP [place] Phone Number [facility] Department [place] [address] from Last 3 Months or Most Recently Relevant to Health Maintenance Insurance MEDICARE [facility] MEDICARE [facility] MEDICARE SUPPLEMENT MEDICARE [facility] MEDICARE SUPPLEMENT Care Teams Wheel Presser Relationship Specialty Start Date End Date Bennie Nova MD [address] [place] [address] PCP - General Cardiovascular Disease 06/02/21
--- OUTSIDE RECORDS SUMMARY | 2025-04-09 09:13 | XMS_ITS | Data Portability ---
Author Organization [facility] LUCIANMyla Address [address] [place] [phone] Assessment No assessment recorded. Plan of Treatment [...] dose or 50 mcg/0.25mL dose 12/12/2020 completed Herminia Alva MA [facility], [place] - SI 12/12/2020 14:14:04 COVID-19, mRNA, LNP-S, PF, 100 mcg/0.5mL dose or 50 mcg/0.25mL dose 01/12/2021 completed Emily Carmona MA [facility], [facility] 01/12/2021 16:25:39 Past Encounters Encounter ID Performer Location Encounter Start Date Encounter Closed Date Diagnosis/Indication Diagnosis SNOMED-CT Code Diagnosis ICD10 Code Diagnosis Note [id number] MD Cristina Mirza 14 IM 4 [facility] [address] [place] [address] 12/12/2020 12:21:04 12/12/2020 18:38:06 Administration of SARS-CoV-2 antigen vaccine [id number] Z23 [id number] MD Cristina Mirza 14 IM 4 [facility] [address] [place] [address] 01/09/2021 12:02:47 01/12/2021 07:55:43 Administration of SARS-CoV-2 antigen vaccine [id number] Z23 Health Concerns Section Related Observation LastModified by Organization Detai ls LastModified Time None Recorded Concern Status LastModified by Organization Details LastModified Time None Recorded Advance Directives Directive None Recorded Payers Encounter Date Sequence Insurance Name Policy Number Policy Umana Covered Member ID Umana Member ID Guarantor Name 12/12/2020 1 [place] Reggie Nevarez [id number] 5 Reggie Nevarez 12/12/2020 2 [place] [id number] Reggie Nevarez [id number] Reggie Nevarez 01/09/2021 1 [place] Nevarez [id number] Reggie Nevarez 01/09/2021 2 [place] [id number] Reggie Nevarez [id number] Reggie Nevarez
--- OUTSIDE RECORDS SUMMARY | 2025-04-09 09:13 | XMS_ITS | Encounter Summary ---
Author Organization [facility] Address [address] [place] [address] Care Team Providers Care Film Reproducer Name Role Phone Bennie Nova MD Primary Care Provider Unava ilable Encounter Details Date Type Department Care Team (Late st Contact Info) Description 11/21/2019 Lab Requisition [facility] [address] [facility], [place] [address] Hali Fletcher DO [address] 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 REVIEW SPECIALIST Gender Identity Not on file Sexual Orientation Not on file documented as of this encounter Plan of Treatment Not on file documented as of this encounter Procedures Procedure Name Priority Date/Time Associated Diagnosis Comments DERMATOPATHOLOGY Routine 11/20/2019 12:0 0 AM ACCOUNT REVIEW SPECIALIST documented in this encounter Results * DERMATOPATHOLOGY (11/20/2019 12:00 AM ACCOUNT REVIEW SPECIALIST) Case Report Dermatopathology Report Case: [id number] Authorizing Provider: Hali Fletcher DO Collected: 11/20/2019 12:00 AM Ordering Location: [facility] DermPath Lab Received: 11/21/2019 01:31 PM Pathologist: Warner Garcia MD Specimen: Skin, left congregational 0 7:23 PM [facility] DERMATOPATHOLOGY LABORATORY Final Diagnosis Specimen A. SKIN, left congregational: SQUAMOUS CELL CARCINOMA, WELL DIFFERENTIATED (C44.329) 0 7:23 PM [facility] DERMATOPATHOLOGY LABORATORY at [address] [facility] Clinical History R/O NMSC, non-healing. 0 7:23 PM ACCOUNT REVIEW SPECIALIST DERMATOPATHOLOGY LABORATORY Gross Description Specimen A: Received is one formalin filled container labeled with the patient's name and designated left congregational. The specimen consists of a shave measuring [id number]. Jar 0. 0 7:23 PM [facility] DERMATOPATHOLOGY LABORATORY Microscopic Description Specimen A. SKIN, left congregational: Arising in the epidermis and extending into the dermis there are irregularly shaped aggregates of keratinocytes showing evidence of premature cornification. 0 7:23 PM ACCOUNT REVIEW SPECIALIST DERMATOPATHOLOGY LABORATORY Disclaimer An external and internal positive and negative controls are appropriate for the histochemical, immunohistochemical and immunofluorescence stain(s) in this case (if any), except where stated explicitly. The performance characteristics of the stain(s) cited in this report were developed and its performance characteristic determined by the Dermatopathology Laboratory at [facility], directed by Dr. Luba Garcia. These tests need not be, and therefore are not, approved by the [place] Food and Drug Administration. The tests are used for clinical purposes. Billing Codes Specimen Charges Stain Charges 99457 1 0 7:23 PM [facility] DERMATOPATHOLOGY LABORATORY Embedded Images 0 7:23 PM [facility] DERMATOPATHOLOGY LABORATORY Pathology/Cytolog y TISSUE SPECIMEN FROM SKIN / Unknown 11/20/2019 11/21/2019 1:31 PM [facility] us Hali Fletcher DO LAB - PATHOLOGY/CYTOLOGY ORDERABLES Final Result DERMATOPATHOLOGY LABORATORY [facility] - Department of Dermatology [address] [facility], 5th Floor Lab [address] [phone] documented in this encounter Visit Diagnoses Not on filedocumented in this encounter Care Teams Film Reproducer Relationship Specialty Start Date End Date Bennie Nova MD PCP - General Internal Medicine 10/10/12 documented as of this encounter
[2025-04-09 09:59] LABS: Basophils Percent Auto 0.3 % (0.2-1.2); Eosinophils Percent Auto 0.4 % (0-4.4); Hematocrit 44.3 % (42.0-52.0); Immature Granulocyte Absolute 0.02 K/mm3 (0.00-0.031); Immature Granulocyte Percent A 0.3 % (0-0.5); Lymphocytes Absolute Auto 1.18 K/mm3 (0.9-3.2); Lymphocytes Percent Auto 16.3 % (18.3-44.2); Mean Corpuscular HGB Conc 31.6 g/dl (32-36); Mean Corpuscular Hemoglobin 29.6 pg (26-34); Mean Corpuscular Volume 93.7 fl (80-100); Mean Platelet Volume 9.9 fl (7.4-10.4); Monocytes Absolute Auto 0.6 K/mm3 (0.1-0.6); Monocytes Percent Auto 8.1 % (2.6-8.5); Neutrophils Absolute Auto 5.4 K/mm3 (1.3-6.7); Neutrophils Percent Auto 74.6 % (45.5-73.1); Platelet Count Result 159 k/mm3 (150-375); Red Blood Count 4.73 M/mm3 (4.6-6.20); Red Cell Distribution Width 14.9 % (11.5-14.5); White Blood Count 7.2 K/mm3 (4.5-10.0)
[2025-04-09 10:36] LABS: Vitamin D 25 Hydroxy 33.4 ng/mL
[2025-04-09 11:09] LABS: Alanine Aminotransferase 15 U/L (6-50); Albumin Level 4.1 g/dL (3.5-5.1); Alkaline Phosphatase 59 U/L (38-126); Anion Gap 9 mmol/L (4-12); Aspartate Amino Transferase 21 U/L (17-59); Bilirubin,Total 0.8 mg/dL (0.2-1.3); Blood Urea Nitrogen 23 mg/dL (9-20); Calcium 9.1 mg/dL (8.4-10.2); Carbon Dioxide 24 mmol/L (22-30); Chloride 107 mmol/L (98-107); Cholesterol 98 mg/dL (0-200); Estimated Glomerular Filt Rate > 60; Glucose 96 mg/dL (65-110); HDL Direct 49 mg/dL; Potassium 4.3 mmol/L (3.4-5.0); Sodium 140 mmol/L (137-145); Total Protein 6.9 g/dL (6.3-8.2); Triglycerides 79 mg/dL (<150)
[2025-04-09 11:39] LABS: LDL Cholesterol Direct < 30 mg/dL
[2025-04-09 12:48] LABS: Creatinine Urine 155.1 mg/dL
[2025-04-09 12:52] LABS: MALB Creatinine Ratio 18.4 mg/g (0-30); Microalbumin Urine Random 28.5 mg/L (0-16.7)
[2025-04-09 14:00] LABS: Hemoglobin A1C 5.8 % (<5.7)
== END 2025-04-09 09:03 | disposition home or self-care (01) ==
PROVIDERS: PCP Internal Medicine; Visit Provider Internal Medicine
DX: E11.9 Type 2 diabetes mellitus without complications (principal); E78.5 Hyperlipidemia, unspecified; E55.9 Vitamin D deficiency, unspecified
CPT/HCPCS: 36415; 80053; 80061; 82043; 82306; 83036; 84443; 85025

== ENCOUNTER 2025-05-06 06:38 | Outpatient (CLI) | payer MEDICARE, SELFPAY ==
--- NOTE | ~2025-05-06 | CT_ITS ---
Clinical Indication: Lymphadenopathy CT Scan of the Chest with Contrast: Technique: Contiguous sections were acquired throughout the chest after intravenous administration of 75 cc of Omnipaque 350. Dose reduction technique was used on this scan by utilizing automated exposu re control and iterative reconstruction technique. The dose-length product (DLP) was 379.26 mGy-cm. COMPARISON: 01/29/2025 Findings: Right paratracheal lymph node is essentially stable from prior exam. There is no filling defect in th e pulmonary arterial tree to suggest pulmonary embolus. There is no evidence of aortic dissection or aneurysm. No pericardial effusion. Beard-ac-upxryvcd bilateral pleural effusions are present. There is minimal dependent atelectatic tripp nge. Lungs are otherwise clear.. Images through the upper abdomen reveal no abnormalities. Impression: Stable right paratracheal lymph node. Small to moderate bilateral pleural effusions with minimal dependent atelectatic change. Reviewed, dictated and finalized at [facility]. Impression: Stable right paratracheal lymph node. Small to moderate bilateral pleural effusions with minimal dependent atelectati c change.
[2025-05-06 09:22] LABS: Basophils Percent Auto 0.4 % (0.2-1.2); Eosinophils Percent Auto 0.5 % (0-4.4); Hematocrit 45.1 % (42.0-52.0); Hemoglobin 14.6 g/dL (14.0-18.0); Immature Granulocyte Absolute 0.02 K/mm3 (0.00-0.031); Immature Granulocyte Percent A 0.2 % (0-0.5); Lymphocytes Absolute Auto 1.14 K/mm3 (0.9-3.2); Lymphocytes Percent Auto 13.3 % (18.3-44.2); Mean Corpuscular HGB Conc 32.4 g/dl (32-36); Mean Corpuscular Hemoglobin 29.9 pg (26-34); Mean Corpuscular Volume 92.2 fl (80-100); Mean Platelet Volume 9.6 fl (7.4-10.4); Monocytes Absolute Auto 0.6 K/mm3 (0.1-0.6); Monocytes Percent Auto 7.3 % (2.6-8.5); Neutrophils Absolute Auto 6.7 K/mm3 (1.3-6.7); Neutrophils Percent Auto 78.3 % (45.5-73.1); Platelet Count Result 165 k/mm3 (150-375); Red Blood Count 4.89 M/mm3 (4.6-6.20); Red Cell Distribution Width 14.9 % (11.5-14.5); White Blood Count 8.6 K/mm3 (4.5-10.0)
[2025-05-06 09:54] LABS: Alanine Aminotransferase 18 U/L (6-50); Albumin Level 3.7 g/dL (3.5-5.1); Alkaline Phosphatase 53 U/L (38-126); Anion Gap 7 mmol/L (4-12); Aspartate Amino Transferase 20 U/L (17-59); Bilirubin,Total 0.6 mg/dL (0.2-1.3); Blood Urea Nitrogen 13 mg/dL (9-20); Calcium 8.7 mg/dL (8.4-10.2); Carbon Dioxide 24 mmol/L (22-30); Chloride 108 mmol/L (98-107); Estimated Glomerular Filt Rate > 60; Glucose 110 mg/dL (65-110); Lactate Dehydrogenase 244 U/L (120-246); Sodium 139 mmol/L (137-145); Total Protein 6.6 g/dL (6.3-8.2)
== END 2025-05-06 06:39 | disposition home or self-care (01) ==
PROVIDERS: PCP Internal Medicine; Visit Provider Internal Medicine Hematology & Oncology
DX: J90 Pleural effusion, not elsewhere classified (principal); R59.1 Generalized enlarged lymph nodes
CPT/HCPCS: 36415; 71260; 80053; 83615; 85025; Q9967

== ENCOUNTER 2025-05-06 09:07 | Outpatient (RCR) | payer MEDICARE, SELFPAY ==
[2025-02-12 08:41] LABS: INR 2.0; Prothrombin Time 23.4 Seconds (11.1-14.7)
[2025-02-25 08:09] LABS: Prothrombin Time 50.5 Seconds (11.1-14.7)
[2025-02-25 08:20] LABS: INR 5.5
[2025-03-05 07:34] LABS: INR 3.1; Prothrombin Time 32.5 Seconds (11.1-14.7)
[2025-04-09 11:46] LABS: INR 1.9; Prothrombin Time 21.3 Seconds (11.1-14.7)
[2025-05-06 09:34] LABS: INR 3.1; Prothrombin Time 31.1 Seconds (11.1-14.7)
== END 2025-05-13 23:59 | disposition home or self-care (01) ==
LOC: ANHLAB 09:07
PROVIDERS: PCP Internal Medicine; Visit Provider Internal Medicine
DX: Z51.81 Encounter for therapeutic drug level monitoring (principal); Z79.01 Long term (current) use of anticoagulants; I48.20 Chronic atrial fibrillation, unspecified; E55.9 Vitamin D deficiency, unspecified
CPT/HCPCS: 36415; 80053; 81001; 82043; 82306; 83970; 84443; 84550; 85025; 85610

== ENCOUNTER 2025-05-06 09:16 | Outpatient (CLI) | payer MEDICARE, SELFPAY ==
--- NOTE | ~2025-05-06 | XR_ITS ---
XR knee RT 3V Ordering provider: Justin Watters, History: . Pain in unspecified knee . Comparison: June 24, 2023 FINDINGS: BONES: No acute fracture or dislocation. JOINT SPACES: Severe narrowing of the medial compartment. SOFT TISSUES: Atherosclerotic changes. IMPRESSION: No acute osseous abnormality right knee. Severe osteoarthritic changes. Reviewed, dictated and finalized at location A.
--- NOTE | ~2025-05-06 | XR_ITS ---
XR knee LT 3V Ordering provider: Justin Watters, History: . Pain in unspecified knee . Comparison: April 17, 2022 FINDINGS: BONES: No acute fracture or dislocation. JOINT SPACES: Total knee arthroplasty. SOFT TISSUES: Normal. IMPRESSION: No acute osseous abnormality left knee. Total knee arthroplasty. No change from previous examination. Reviewed, dictated and finalized at location A.
--- NOTE | ~2025-05-06 | XR_ITS ---
XR_CERV2-3V_CR Ordering provider: Justin Watters, History: . Cervical radiculopathy . Comparison: March 16, 2024 FINDINGS: VERTEBRAL BODIES: Normal height and alignment. No visible fracture or subluxation. The dens is intact . Degenerative changes of the spine. DISK SPACES: Narrowing of the disc C5-C6 and C6-C7. Multilevel uncovertebral joint osteoarthritic tripp nges. PARASPINOUS SOFT TISSUES: No prevertebral soft tissue swelling. IMPRESSION: No acute osseous abnormality cervical spine. Multilevel degenerative disc disease. Reviewed, dictated and finalized at location A.
--- NOTE | ~2025-05-06 | XR_ITS ---
3 VIEWS LUMBAR SPINE Ordering provider: Justin Watters, History: . Lumbar radiculopathy . Comparison: None. FINDINGS: VERTEBRAL BODIES: No visible fracture or subluxation. Degenerative changes of the spine. DISK SPACES: Narrowing of the disc L1-L2. Multilevel facet joint disease. SOFT TISSUES: Atherosclerotic changes of the aorta. IMPRESSION: No acute osseous abnormality lumbar spine. Degenerative disc disease at the level of L1-L2. Reviewed, dictated and finalized at location A.
--- NOTE | ~2025-05-06 | XR_ITS ---
Thoracic spine: Clinical Indication: Thoracic radiculopathy AP and lateral views were performed. No fracture is seen. There is normal alignment of the vertebrae. There is moderate to advanced degen erative disc narrowing throughout the thoracic spine. There is DISH of the thoracic spine. Paraverteb ral soft tissues appear normal. Impression: Moderate to advanced degenerative disc narrowing throughout the thoracic spine. DISH. Reviewed, dictated and finalized at location . Impression: Moderate to advanced degenerative disc narrowing throughout the thoracic spine. DISH.
== END 2025-05-06 09:17 | disposition home or self-care (01) ==
LOC: MICIMG 09:19
PROVIDERS: PCP Internal Medicine; Visit Provider Pain Medicine Interventional Pain Medicine
DX: M51.34 Other intervertebral disc degeneration, thoracic region (principal); M48.14 Ankylosing hyperostosis [Forestier], thoracic region; M51.369 Other intervertebral disc degeneration, lumbar region without mention of lumbar back pain or lower extremity pain; M17.11 Unilateral primary osteoarthritis, right knee; M50.322 Other cervical disc degeneration at C5-C6 level; M50.323 Other cervical disc degeneration at C6-C7 level
CPT/HCPCS: 72040; 72072; 72100; 73562

== ENCOUNTER 2025-05-24 06:44 | Outpatient (CLI) | payer MEDICARE, SELFPAY ==
--- OUTSIDE RECORDS SUMMARY | 2025-05-24 06:48 | XMS_ITS | Clinical Summary ---
Author Organization [facility] [place] Address [address] [place] [address] Care Team Providers Care Human Resources Hr Representative Name Role Phone Tiana Patterson MD Primary [...] Encounters Date Type Department Care Team Description 05/21/2025 External Device Data STL ABSTRACTION Provider, Abstract 05/14/2025 11:45 AM CDT Office Visit [facility] Oncology and Hematology - [place] [address] [place] [address] Tommy Ruiz MD Lymphadenopathy (Primary Dx) 05/08/2025 Orders Only [facility] Oncology and Hematology - [place] [address] [place] [address] Tommy Ruiz MD 05/07/2025 External Device Data STL ABSTRACTION Provider, Abstract 05/06/2025 Orders Only [facility] Oncology and Hematology - [place] [address] [place] [address] Tommy Ruiz MD 04/02/2025 External Device Data STL ABSTRACTION Provider, [...] on file Legal Sex Male 3:06 PM CASING TRIMMER Gender Identity Not on file Sexual Orientation Not on file Last Filed Vital Signs Vital Sign Reading Time Taken Comments Blood Pressure 117/64 05/14/2025 11:13 AM CDT Pulse 85 05/14/2025 11:13 AM CDT Temperature 36.7 C (98 F) 05/14/2025 11:13 AM CDT Respiratory Rate 15 05/14/2025 11:1 3 AM CDT Oxygen Saturation 96% 05/14/2025 11: 13 AM CDT Inhaled Oxygen Concentration - - Weight 106.8 kg (235 lb 6.4 oz) 025 11:13 AM CDT Height 177.8 cm (5' 10) 11/01/2024 11: 29 AM CASING TRIMMER Body Mass Index 33.78 11/01/2024 11:29 AM CASING TRIMMER Plan of Treatment Upcoming Encounters Date Type Department Care Team (Late st Contact Info) Description 11/22/2025 9:15 AM CASING TRIMMER Office Visit [facility] Oncology and Hematology [facility] [address] [place] [address] [facility] [address] [place] [address] Tommy Ruiz MD [address] [facility] [address] [place] [address] Health Maintenance Due Date Last [...] DIABETES HBA1C Q 6 MONTHS 03/01/2025 08/31/2024 INFLUENZA VACCINE (#1) 2025 COLORECTAL SCREENING 08/17/2034 08/17/2024, 08/17/20 Colorectal Cancer Screening 08/17/2034 Procedures Procedure Name Priority Date/Time Associated Diagnosis Comments CT CHEST W CONTRAST Routine 05/06/2025 8 :31 AM CDT COMPREHENSIVE METABOLIC PANEL Routine 05/06/2025 8:20 AM CDT from Last 3 Months Results * CT CHEST W CONTRAST (05/06/2025 8:31 AM CDT) Anatomical Region Laterality Modality Chest Computed Tomogra phy us Tommy Ruiz MD CT ORDERABLES Final Result * COMPREHENSIVE METABOLIC PANEL (05/06/2025 8:20 AM CDT) Blood us Tommy Ruiz MD CHEMISTRY ORDERABLES Final Resu lt from Last 3 Months Insurance MEDICARE PART A AND B [facility] Care Teams Human Resources Hr Representative Relationship Specialty Start Date End Date Tiana Patterson MD [address] [place] [address] [phone] PCP - General Internal Medicine 11/02/24
--- OUTSIDE RECORDS SUMMARY | 2025-05-24 06:49 | XMS_ITS | Clinical Summary ---
Author Organization [facility] Address [address] [place] [id number] Care Team Providers Care Voip Network Technician Name Role Phone Unavailable Primary Care Provider [...] Td Vaccines ( 1 - Tdap) 1969 Pneumococcal Vaccine: 50+ Ye ars (1 of 1 - PCV) 01/30/2000 Zoster Vaccines (1 of 2) 01/30/2000 Annual Medicare Wellness Visit 2015 COVID-19 Vaccine ( - 2023-2 5 [...] age to complete this topic Insurance MEDICARE [facility]
--- OUTSIDE RECORDS SUMMARY | 2025-05-24 06:49 | XMS_ITS | Encounter Summary ---
Author Organization [facility] Address [address] [place] [address] Care Team Providers Care Privacy Analyst Name Role Phone Bennie Nova MD Primary Care Provider Unava ilable Encounter Details Date Type Department Care Team (Late st Contact Info) Description 11/21/2019 Lab Requisition [facility] [address] [facility], [place] [address] Hali Fletcher DO [address] [facility] [address] [place] [address] Social History Tobacco Use Types Packs/Day Years Used Date Smoking Tobacco: Never Alcohol Use Standard Drinks/Week Comments Not Asked 0 (1 standard drink = 0.6 oz pur e alcohol) Sex and Gender Information Value Date Recorded Sex Assigned at Not on file Legal Sex Male 10:01 AM COOPERAGE SHOP SUPERVISOR Gender Identity Not on file Sexual Orientation Not on file documented as of this encounter Plan of Treatment Not on file documented as of this encounter Procedures Procedure Name Priority Date/Time Associated Diagnosis Comments DERMATOPATHOLOGY Routine 11/20/2019 12:0 0 AM COOPERAGE SHOP SUPERVISOR documented in this encounter Results * DERMATOPATHOLOGY (11/20/2019 12:00 AM COOPERAGE SHOP SUPERVISOR) Case Report Dermatopathology Report Case: [id number] Authorizing Provider: Hali Fletcher DO Collected: 11/20/2019 12:00 AM Ordering Location: [facility] DermPath Lab Received: 11/21/2019 01:31 PM Pathologist: Warner Garcia MD Specimen: Skin, left jew 0 7:23 PM [facility] DERMATOPATHOLOGY LABORATORY Final Diagnosis Specimen A. SKIN, left jew: SQUAMOUS CELL CARCINOMA, WELL DIFFERENTIATED (C44.329) 0 7:23 PM [facility] DERMATOPATHOLOGY LABORATORY at [address] [facility] Clinical History R/O NMSC, non-healing. 0 7:23 PM [facility] DERMATOPATHOLOGY LABORATORY Gross Description Specimen A: Received is one formalin filled container labeled with the patient's name and designated left jew. The specimen consists of a shave measuring [id number]. Jar 0. 0 7:23 PM [facility] DERMATOPATHOLOGY LABORATORY Microscopic Description Specimen A. SKIN, left jew: Arising in the epidermis and extending into the dermis there are irregularly shaped aggregates of keratinocytes showing evidence of premature cornification. 0 7:23 PM COOPERAGE SHOP SUPERVISOR DERMATOPATHOLOGY LABORATORY Disclaimer An external and internal positive and negative controls are appropriate for the histochemical, immunohistochemical and immunofluorescence stain(s) in this case (if any), except where stated explicitly. The performance characteristics of the stain(s) cited in this report were developed and its performance characteristic determined by the Dermatopathology Laboratory at [facility], directed by Dr. Luba Garcia. These tests need not be, and therefore are not, approved by the [place] Food and Drug Administration. The tests are used for clinical purposes. Billing Codes Specimen Charges Stain Charges 10063 1 0 7:23 PM [facility] DERMATOPATHOLOGY LABORATORY Embedded Images 0 7:23 PM [facility] DERMATOPATHOLOGY LABORATORY Pathology/Cytolog y TISSUE SPECIMEN FROM SKIN / Unknown 11/20/2019 11/21/2019 1:31 PM [facility] us Hali Fletcher DO LAB - PATHOLOGY/CYTOLOGY ORDERABLES Final Result DERMATOPATHOLOGY LABORATORY [facility] - Department of Dermatology [address] [facility], 5th Floor Lab [address] [phone] documented in this encounter Visit Diagnoses Not on filedocumented in this encounter Care Teams Privacy Analyst Relationship Specialty Start Date End Date Bennie Nova MD PCP - General Internal Medicine 10/10/12 documented as of this encounter
--- OUTSIDE RECORDS SUMMARY | 2025-05-24 06:49 | XMS_ITS | Clinical Summary ---
Author Organization [facility] Address [address] [place] [address] Care Team Providers Care Spring Setter Name Role Phone Fabian Patterson MD Primary Care Provide r Allergies No known active allergies Medications empagliflozin [...] day 360 tablet 3 5 026 Active ferrous sulfate 325 mg (65 mg of elemental iron) tablet Take 1 tablet (325 mg total) by mouth daily 5 Active nitroglycerin (NITROSTAT) 0.[address] 1 TABLET UNDER THE TONGUE EVERY 5 MINUTES, UP TO 3 DOSES NEEDED FOR CHEST PAIN Active rOPINIRole (REQUIP) 2 mg tablet Take 1 tablet (2 mg total) by mouth nightly as needed 5 Active furosemide (LASIX) 20 mg tablet Take 1 tablet (20 mg total) by mouth daily 30 tablet 1 5 025 Active Active Problems Problem Noted Date Diagnosed Date Severe mitral regurgitation 05/07/2025 H/O mechanical aortic valve replacement 05/07/20 25 Cardiac pacemaker in situ 02/13/2025 Overview (02/19/2025): Biotronik Amvia Edge Dual Pacemaker. Dx; SSS, Afib, PVC's. DOI 03/08/2024-SLHV. Biotronik remote. Chronic atrial fibrillation, unspecified 025 Other thrombophilia 02/05/2025 Malabsorption 06/29/2016 History of bariatric surgery 03/04/2016 Eating disorder, unspecified 09/30/2015 Chronic coronary artery disease 09/18/2015 Diabetes mellitus 09/18/2015 Benign essential hypertension 09/18/2015 Obstructive sleep apnea syndrome 09/18/2015 Morbid obesity 09/18/2015 Arthritis 05/01/2015 Encounters Date Type Department Care Team Description 05/20/2025 Telephone [facility] Cardiology [address] [place] [address] [place] [phone] Jonah Momin MD 05/09/2025 Anticoagulation Visit [address] [address] [address] [place] [phone] Hilda Robledo, CHRIS 05/07/2025 10:30 AM CDT Ancillary Procedure [facility] Cardiology [address] [facility] [address] [place] [phone] Cardiac pacemaker in situ; Chronic atrial fibrillation, unspecified (HCC); SSS (sick sinus syndrome) (HCC) 05/07/2025 10:30 AM CDT Office Visit [address] [place] [phone] Jonah Momin MD Chronic atrial fibrillation, unspecified (HCC) (Primary Dx); Cardiac pacemaker in situ; Chronic coronary artery disease; Severe mitral regurgitation; H/O mechanical aortic valve replacement 05/07/2025 Telephone [address] [place] [phone] Jonah Momin MD 04/24/2025 Anticoagulation Visit [address] [place] [phone] Hilda Robledo RN 04/15/2025 Anticoagulation Visit [address] [place] [phone] Lou White RN 04/15/2025 Telephone [facility] Cardiology [address] [place] [address] [address] [place] [address] Jonah Momin MD 03/22/2025 Anticoagulation Visit [facility] Cardiology [address] [place] [address] [address] [place] [phone] Hilda Robledo RN 03/07/2025 Anticoagulation Visit [facility] Cardiology [address] [place] [address] [address] [place] [phone] Lou White RN 02/25/2025 Anticoagulation Visit [facility] Cardiology [address] [place] [address] [address] [place] [phone] Hilda Robledo, CHRIS 02/25/2025 Telephone [facility] Cardiology [address] [place] [address] [address] [place] [phone] Jonah Momin MD from Last 3 Months [...] on file Legal Sex Male 12:10 AM MARKETING PROGRAMS SPECIALIST Gender Identity Not on file Sexual Orientation Not on file Obstetrics History Last Filed Vital Signs Vital Sign Reading Time Taken Comments Blood Pressure 120/70 05/07/2025 8:56 AM CDT Pulse 85 05/07/2025 8:56 AM CDT Temperature 36.7 C (98.1 F) 08/17/2024 9:05 AM CDT Respiratory Rate 16 10/02/2024 12:46 PM MARKETING PROGRAMS SPECIALIST Oxygen Saturation 97% 05/07/2025 8:56 AM CDT Inhaled Oxygen Concentration - - Weight 106.1 kg (234 lb) 05/07/2025 8:56 AM CDT Height 175.3 cm (5' 9) 05/07/2025 8:56 AM CDT Body Mass Index 34.56 05/07/2025 8:56 AM CDT Plan of Treatment Health Maintenance [...] 65+ 2015 eGFR 07/29/2024 07/29/2023 Influenza Vaccine (#1) 2025 09/22/2020 Lipid Panel 02/05/2026 02/05/2025, 04/02/2016 Colon Cancer Screening-Colonoscopy 08/17/20342023 Medical Devices Implanted Type Area Record Retrieval Specialist Device Identifier Shelf Expiration Date Model / Serial / Lot Pacemaker Pacemaker N/A: Heart Plate Plate Left: Knee Prosthetic Valve Prosthetic Valve Bilateral : Heart Procedures Procedure Name Priority Date/Time Associated Diagnosis Comments DEVICE CHECK - REMOTE Routine 05/07/2025 10:03 AM CDT Cardiac pacemaker in situ Chronic atrial fibrillation, unspecified (HCC) SSS (sick sinus syndrome) (HCC) PROTIME-INR Routine 05/06/2025 PROTIME-INR Routine 04/24/2025 PROTIME-INR Routine 04/09/2025 PROTIME-INR Routine 03/22/2025 PROTIME-INR Routine 03/05/2025 PROTIME-INR Routine 02/25/2025 POCT LIPID PANEL Routine 02/05/2025 8:45 AM CDT Atherosclerosis of [place] coronary artery of [place] heart without angina pectoris COLONOSCOPY 08/17/2024 8:17 AM CDT EGFR STAT 07/29/2023 10:21 AM CDT from Last 3 Months or Most Recently Relevant to Health Maintenance Results * DEVICE CHECK - REMOTE (05/07/2025 10:03 AM CDT) Anatomical Region Laterality Modality Other Narrative 05/07/2025 10:29 AM CDT Biotronik Amvia Edge Dual Pacemaker. Dx; SSS, Afib, PVC's. DOI 03/08/2024-SLHV. Biotronik remote. Routine DDD Pacemaker Remote. Transmission attached. Battery status: Ok, 85% remaining battery life to BETO. Stable lead impedances, pacing and sensing thresholds. Presenting rhythm: Afib Vpaced. AP-7%, [place]-93%. AF [place] 100%. Average ventricular rate 88 bpm. Max ventricular rate during AT/AF 119 bpm. 2 PVC/hour. No Ventricular arrhythmias detected. Medications: Coumadin, Entresto. See scanned report. Office pacemaker follow up: 1 year. Biotronik remote f/u 08/13/2025. Lesly Herr, RN Result [facility] Jonah Momin MD CV CARDIAC SERVICES PROCEDURES F inal Result * (ABNORMAL) Protime-INR (05/06/2025) INR 3.10(A) 0.90 - 1.10 EXTERNAL LAB Blood Result [facility] Provider MD LAB BLOOD ORDERABLES Kim l Result Performing Organization Address City/[facility]/ZIP Co de Phone Number EXTERNAL LAB * (ABNORMAL) Protime-INR (04/24/2025) INR 3.30(A) 0.90 - 1.10 EXTERNAL LAB Blood Result [facility] Provider MD LAB BLOOD ORDERABLES Kim l Result EXTERNAL LAB * (ABNORMAL) Protime-INR (04/09/2025) INR 1.90(A) 0.90 - 1.10 EXTERNAL LAB Blood Result [facility] Provider MD LAB BLOOD ORDERABLES Kim l Result EXTERNAL LAB * (ABNORMAL) Protime-INR (03/22/2025) INR 3.70(A) 0.90 - 1.10 EXTERNAL LAB Blood Result [facility] Provider MD LAB BLOOD ORDERABLES Kim l Result EXTERNAL LAB * (ABNORMAL) Protime-INR (03/05/2025) INR 3.10(A) 0.90 - 1.10 EXTERNAL LAB Blood Historical Provider MD LAB BLOOD ORDERABLES Kim l Result EXTERNAL LAB * (ABNORMAL) Protime-INR (02/25/2025) INR 5.50(A) 0.90 - 1.10 EXTERNAL LAB Blood Historical Provider LAB BLOOD ORDERABLES Kim l Result EXTERNAL LAB * POCT lipid panel (02/05/2025 8:45 AM CDT) Cholesterol, POC <100 mg/dL HDL, POC 43 mg/dL Triglycerides, POC 82 mg/dL LDL Cholesterol POC 39.6 mg/dL Chol/HDL Ratio, POC n/a Non-HDL Cholesterol, POC n/a mg/dL Cholesterol Total, POC <100 mg/dL Capillary blood 02/05/2025 8 :45 AM CDT Jonah Momin MD POINT OF CARE TEST ORDERABLES Fi nal Result * Colonoscopy (08/17/2024 8:17 AM CDT) Anatomical Region Laterality Modality Other Narrative Procedure Note Meryl Spears MD - 08/17/2024 8:17 AM CDT [facility] GI ENDOSCOPY Patient Name: Reggie Nevarez Procedure Date: 08/17/2024 8:17 AM Date of : 1950 Admit Type: Outpatient Age: 74 Gender: Male Attending MD: Meryl Spears M.D. Room: [facility] ENDOSCOPY ROOM 05 Note Status: Finalized Procedure: [...] polypectomy, one hemostaticclip was successfully placed. Clip relationship assoc: [employer]. Therewas no bleeding at the end of [...] Resected and retrieved. Clip was placed. Clip relationship assoc: [employer]. - Diverticulosis in the left colon. Biopsied. - The distal rectum and anal verge are normal on retroflexion view. Recommendation: - Resume previous diet. - Continue present medications. - Await pathology results. Meryl Spears M.D. Meryl Spears M.D. 08/17/2024 9:11:17 AM . Number of Addenda: 0 Note Initiated On: 08/17/2024 8:17 AM Recognized by the [place] for promoting quality in endoscopy Meryl Spears MD ENDOSCOPY PROCEDURES Kim shirin Result * eGFR (07/29/2023 10:21 AM CDT) eGFR >90 90 - 130 mL/min/1. 73 m2 [facility] Comment: Interpretive Data Reference Interval [...] Final Result Performing Organization Address City/State/ZIP Co wv Phone Number [facility] [place] [address] from Last 3 Months or Most Recently Relevant to Health Maintenance Insurance MEDICARE [facility] MEDICARE BLUE CROSS MEDICARE SUPPLEMENT MEDICARE [facility] MEDICARE SUPPLEMENT Care Teams Spring Setter Relationship Specialty Start Date End Date Fabian Patterson MD [address] [address] PCP - General Internal Medicine 05/07/25
--- OUTSIDE RECORDS SUMMARY | 2025-05-24 06:49 | XMS_ITS | Data Portability ---
Author Organization [facility] Myla Lee Address [address] [place], [place] [address] [address] Assessment No assessment recorded. Plan of Treatment [...] or 50 mcg/0.25mL dose 12/12/2020 completed WAYNE Nuñez, [place] - [place] 12/12/2020 14:14:04 COVID-19, mRNA, LNP-S, PF, 100 mcg/0.5mL dose or 50 mcg/0.25mL dose 01/12/2021 completed WAYNE [place], [place] - [place] 01/12/2021 16:25:39 Past Encounters Encounter ID Performer Location Encounter Start Date Encounter Closed Date Diagnosis/Indication Diagnosis SNOMED-CT Code Diagnosis ICD10 Code Diagnosis Note [id number] MD Cristina Mirza 14 IM [address] [facility] [address] [place] [address] 12/12/2020 12:21:04 12/12/2020 18:38:06 Administration of SARS-CoV-2 antigen vaccine 926428708 Z23 [id number] MD Cristina Mirza 14 IM [address] [facility] [address] [place] [address] 01/09/2021 12:02:47 01/12/2021 07:55:43 Administration of SARS-CoV-2 antigen vaccine 184021995 Z23 Health Concerns Section Related Observation LastModified by Organization Detai ls LastModified Time None Recorded Concern Status LastModified by Organization Details LastModified Time None Recorded Advance Directives Directive None Recorded Payers Insurance Date Sequence Insurance Name Policy Number Policy Umana Covered Member ID Umana Member ID Guarantor Name 04/04/2024 [place] [facility] Reggie Nevarez [id number] 5 Reggie Nevarez 04/04/2024 2 [place] [id number] Reggie Nevarez [id number] Reggie Nevarez 04/04/2024 1 [place] Reggie Nevarez [id number] 5 Reggie Nevarez
--- OUTSIDE RECORDS SUMMARY | 2025-05-24 06:49 | XMS_ITS ---
Author Organization [facility] Address [address] [facility] [address] [place] [address] Care Team Providers Care Supervisory Cbp Officer Name Role Phone Gigi Justin Unavailable [phone] Social History Sex Assigned At : Social History Observation Description Sex Assigned At Male Problems Problem Type SNOMED Code ICD Code Onset Dates Problem Status W/U Status Risk Notes Problem Glycosuria (13240405) Glycosuria (R81) Active confirmed Problem Chronic pain (42991325) Other chronic pain (G89.29) Active confirmed Problem Nonrheumatic aortic (valve) stenosis (I35.0) Active confirmed Encounters Encounter Location Date Provider Diagnosis [place] [facility] [address] [facility] [address] [place] [address] 02/13/2025 Gigi Justin Chronic kidney disea se, [...] Name:Gigi Nhan , 06/12/2025 02:30:00 PM, [address] [address], [place], [place], [facility], Progress Notes * MANNIE CABELLODOB:1950 ( 75 yo F)Acc No.[id number]:02/13/2025 Progress Notes Patient: MANNIE APARICIO Provider: Nayeli MAE MD, F.A.C.P, F.A.S.N. :1950 A ge:75 Y S ex:Female Date:02/13/2025 Address:[address] [place] [address] Subjective: * Chief Complaints: * * Medical [...] Treatment: * Billing Information: * Visit Code: 51803 Office Visit, Est Pt., Level 4. * Procedure Codes: * Electronic signature of Fox Justin MD on 05/24/2025 at 06:49 AM CDT Sign off status: Pending * Provider: Nayeli MAE MD, F.A.C.P, F.A.S.N. Date: 0 02/13/2025 Generated for Printing/Faxing/eTransmitting on: 05/24/2025 06:49 AM CDT
--- OUTSIDE RECORDS SUMMARY | 2025-05-24 06:49 | XMS_ITS | Clinical Summary ---
Author Organization [facility] Address [address] [facility] [address] Care Team Providers Care Ux Research Associate Name Role Phone Bennie Nova MD Primary Care Provider Alison jeronimo Source Comments [facility],non-owned Affiliates and Associated Physician Practices is amultiple site organization consisting of ambulatory clinics and hospital sitesin [place] and [place]. This disclosure is being madepursuant to the Care Everywhere program and may not contain all information available regarding this patient. Last updated 18.[facility] [employer] Allergies No known active allergies Medications * [...] on file Legal Sex Male 10:01 AM HHAS Gender Identity Not on file Sexual Orientation Not on file Last Filed Vital Signs Vital Sign Reading Time Taken Comments Blood Pressure 182/85 10/09/2012 3:10 PM HHAS Pulse 70 10/09/2012 3:10 PM HHAS Temperature 36.7 C (98.1 F) 12/29/2010 11:35 AM HHAS Respiratory Rate 16 12/29/2010 11:35 AM HHAS Oxygen Saturation - - Inhaled Oxygen Concentration - - Weight 173.3 kg (382 lb) 10/09/2012 3:10 PM HHAS Height 177.8 cm (5' 10) 10/09/2012 3:10 PM HHAS Body Mass Index 54.81 10/09/2012 3:10 PM HHAS Plan of Treatment Health Maintenance Due Date [...] - 1-dose 75+ series) 2025 INFLUENZA VACCINE (#1) 2025 HEPATITIS B VACCINE Aged Out No [...] patient's age to complete this topic Insurance [facility] MEDICARE [facility]/COUNT INCLUDES THE [facility] BLUE [facility] ANTHEM ANTHEM MEDICARE Care Teams Ux Research Associate Relationship Specialty Start Date End Date Bennie Nova MD PCP - General Internal Medicine 10/10/12
--- OUTSIDE RECORDS SUMMARY | 2025-05-24 06:49 | XMS_ITS | Referral Summary ---
Author Organization [facility] Address [address] [place] [address] Care Team Providers Care Hard Rock Miner Name Role Phone Fabian Patterson MD Primary Care Provide r Encounters Date Type Department Care Team Description 05/20/2025 Telephone [facility] Cardiology [address] [place] [address] [address] [place] [phone] Jonah Momin MD 05/09/2025 Anticoagulation Visit [facility] Cardiology [address] [place] [address] [address] [place] [phone] Hilda Robledo RN 05/07/2025 10:30 AM CDT Ancillary Procedure [facility] Cardiology [facility] [address] [place] [phone] Cardiac pacemaker in situ; Chronic atrial fibrillation, unspecified (HCC); SSS (sick sinus syndrome) (HCC) 05/07/2025 Telephone [facility] Cardiology [address] [place] [address] [address] [place] [phone] Jonah Momin MD 05/07/2025 10:30 AM CDT Office Visit [facility] Cardiology [address] [place] [address] [address] [place] [phone] Jonah Momin MD Chronic atrial fibrillation, unspecified (HCC) (Primary Dx); Cardiac pacemaker in situ; Chronic coronary artery disease; Severe mitral regurgitation; H/O mechanical aortic valve replacement 04/24/2025 Anticoagulation Visit [facility] Cardiology [address] [place] [address] [place] [phone] Hilda Robledo RN 04/15/2025 Anticoagulation Visit [facility] Cardiology [address] [place] [address] [place] [phone] Lou White RN 04/15/2025 Telephone [facility] Cardiology [address] [place] [address] [place] [phone] Jonah Momin MD 03/22/2025 Anticoagulation Visit [facility] Cardiology [address] [place] [address] [place] [phone] Hilda Robledo RN 03/07/2025 Anticoagulation Visit [address] [place] [phone] Lou White RN 02/25/2025 Anticoagulation Visit [address] [phone] Hilda Robledo RN 02/25/[address] [phone] Jonah Momin MD from Last 3 Months Allergies No known [...] on file 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 Gender Identity Not on file Sexual Orientation Not on file Last Filed Vital Signs Vital Sign Reading Time Taken Comments Blood Pressure 120/70 05/07/2025 8:56 AM CDT Pulse 85 05/07/2025 8:56 AM CDT Temperature 36.7 C (98.1 F) 08/17/2024 9:05 AM CDT Respiratory Rate 16 10/02/2024 12:46 PM 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 Presenting rhythm: Afib Vpaced. 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 AF [place] 100%. Average ventricular rate 88 bpm. Max ventricular rate during AT/AF 119 bpm. 2 PVC/hour. No Ventricular arrhythmias detected. Medications: Coumadin, Entresto. See scanned report. Office pacemaker follow up: 1 year. Biotronik remote f/u 08/13/2025. Lesly Herr, RN Result [facility] Jonah Momin MD CV CARDIAC SERVICES PROCEDURES F inal Result * (ABNORMAL) Protime-INR (05/06/2025) INR 3.10(A) 0.90 - 1.10 EXTERNAL LAB Blood Result [facility] Provider MD LAB BLOOD ORDERABLES Kim l Result EXTERNAL LAB * (ABNORMAL) Protime-INR (04/24/2025) INR 3.30(A) 0.90 - 1.10 EXTERNAL LAB Blood Result [facility] Provider MD LAB BLOOD ORDERABLES Kim l Result EXTERNAL LAB * (ABNORMAL) Protime-INR (04/09/2025) INR 1.90(A) 0.90 - 1.10 EXTERNAL LAB Blood Result [facility] Provider MD LAB BLOOD ORDERABLES Kim l Result EXTERNAL LAB * (ABNORMAL) Protime-INR (03/22/2025) INR 3.70(A) 0.90 - 1.10 EXTERNAL LAB Blood Result [facility] Provider MD LAB BLOOD ORDERABLES Kim [...] Capillary blood 02/05/2025 8 :45 AM CDT Result [facility] Jonah Momin MD POINT OF CARE TEST ORDERABLES Fi nal Result * Colonoscopy (08/17/2024 8:17 AM CDT) Anatomical Region Laterality Modality Other Narrative Procedure Note Meryl Spears MD - 08/17/2024 8:17 AM CDT [facility] GI ENDOSCOPY Patient Name: Reggie Nevarez Procedure Date: 08/17/2024 8:17 AM Date of : 1950 Admit Type: Outpatient Age: 74 Gender: Male Attending MD: Meryl Spears M.D. Room: [facility] ENDOSCOPY ROOM 05 Note [...] polypectomy, one hemostaticclip was successfully placed. 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 Therewas no bleeding at the end of [...] Resected and retrieved. Clip was placed. 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 - Diverticulosis in the left colon. Biopsied. - The distal rectum and anal verge are normal on retroflexion view. Recommendation: - Resume previous diet. - Continue present medications. - Await pathology results. Meryl Spears M.D. Meryl Spears M.D. 08/17/2024 9:11:17 AM . Number of Addenda: 0 Note Initiated On: 08/17/2024 8:17 AM Recognized by the [place] [employer] for promoting quality in endoscopy Meryl Spears MD ENDOSCOPY PROCEDURES Kim l Result * eGFR (07/29/2023 10:21 AM CDT) eGFR >90 90 - 130 mL/min/1. 73 m2 [facility] Comment: Interpretive Data Reference Interval Normal >/= [...] BLOOD ORDERABLES Final Result Performing Organization Address City/State/[facility] Co de Phone Number [facility] [address] [facility] [address] Department [place] [address] from Last 3 Months or Most Recently Relevant to Health Maintenance Insurance MEDICARE [facility] MEDICARE BLUE CROSS MEDICARE SUPPLEMENT [address] [place] [address] MEDICARE [facility] [place] MEDICARE SUPPLEMENT Care Teams Hard Rock Miner Relationship Specialty Start Date End Date Fabian Patterson MD [address] [place] [address] PCP - General Internal Medicine 05/07/25
--- OUTSIDE RECORDS SUMMARY | 2025-05-24 06:49 | XMS_ITS | Patient Health Record ---
Author Organization [facility] Address [address] [place] [address] [place] [address] Care Team Providers Care Minibus Driver Name Role Phone Gigi Justin Unavailable [phone] Reason For Referral No Information Medications Medication SIG (Take, Route, Frequency, Duration) Notes Start Date End Date Status Ergocalciferol 1.25 MG (63908 UT) 1 capsule Orally Once a week; Duration: 90 day(s) 04/25/2024 09/29/2025 Active Calcitriol 0.25 MCG 1 capsule Orally Onc e a day; Duration: 90 day(s) 04/25/2024 09/29/2025 Active Social History Sex Assigned At : Social History Observation Description Sex Assigned At Male Problems Problem Type SNOMED Code ICD Code Onset Dates Problem Status W/U Status Risk Notes Problem Hyperlipidemia (55682085) Hyperlipidemia, unspecified (E78.5) Active confirmed Problem Anxiety disorder (286433289) Anxiety disorder, unspecified (F41.9) Active confirmed Problem Chronic pain (80124639) Other chronic pain (G89.29) Active confirmed Problem Aortic valve disorder (5449030) Nonrheumatic aortic (valve) stenosis (I35.0) Active confirmed Problem Heart failure (34915141) Heart failure, unspecified (I50.9) Active confirmed Problem Chronic kidney disease stage 2 (731688625) Chronic kidney disease, stage 2 (mild) (N18.2) Active confirmed Problem Renal osteodystrophy (06950778) Renal osteodystrophy (N25.0) Active confirmed Problem Chronic fatigue syndrome (disorder) (24260554) Chronic fatigue, unspecified (R53.82) Active confirmed Problem Glycosuria (81570647) Glycosuria (R81) Active confirmed Problem History of malignant neoplasm of larynx (456570880) 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) Active confirmed Problem Benign prostatic hypertrophy without outflow obstruction (287932754) Benign prostatic hyperplasia without lower urinary tract symptoms (N40.0) Active confirmed Problem Coronary artery disease (97003249) CAD (coronary artery disease) (I25.10) Active confirmed Encounters Encounter Location Date Provider Diagnosis [facility] [address] [place] [address] 12/12/2024 Gigi Justin Chronic kidney disea se, stage 3a N18.31 ; 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 ; Hyperlipidemia, unspecified E78.5 ; CAD (coronary artery disease) I25.10 and Benign prostatic hyperplasia without lower urinary tract symptoms N40.0 [facility] [address] [place] [address] 01/02/2025 Gigi Justin Chronic kidney disea se, stage 2 (mild) N18.2 ; Anxiety disorder, unspecified F41.9 ; Chronic fatigue, unspecified R53.82 ; Renal osteodystrophy N25.0 ; Heart failure, unspecified I50.9 ; 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 ; Hyperlipidemia, unspecified E78.5 ; CAD (coronary artery disease) I25.10 and Benign prostatic hyperplasia without lower urinary tract symptoms N40.0 [facility] [address] [place] [address] 02/13/2025 Gigi Justin Chronic kidney disea se, [...] G89.29 and Nonrheumatic aortic (valve) stenosis I35.0 [facility] [place] [facility] [address] [place] [place] [address] 12/19/2024 Gigi Justin [facility] [address] [address] 01/02/2025 Gigi Justin Assessments Encounter Date Diagnosis (ICD Code) Assessment Notes Treatment Notes Treatment Clinical Notes Section Notes 12/12/2024 Personal history of malignant neoplasm of larynx (ICD-10 - Z85.21) 12/12/2024 Chronic kidney disease, stage 3a (ICD-10 - N18.31) 01/02/2025 Chronic kidney disease, stage 2 (mild) (ICD-10 - N18.2) 02/13/2025 Chronic kidney disease, stage 2 (mild) (ICD-10 - N18.2) 02/13/2025 Anxiety disorder, unspecified (ICD-10 - F41.9) 01/02/2025 Anxiety disorder, unspecified (ICD-10 - F41.9) 12/12/2024 Hyperlipidemia, unspecified (ICD-10 - E78.5) 12/12/2024 CAD (coronary artery disease) (ICD-10 - I25.10) 01/02/2025 Chronic fatigue, unspecified (ICD-10 - R53.82) 02/13/2025 Chronic fatigue, unspecified (ICD-10 - R53.82) 02/13/2025 Renal osteodystrophy (ICD-10 - N25.0) 01/02/2025 Renal osteodystrophy (ICD-10 - N25.0) 12/12/2024 Benign prostatic hyperplasia without lower urinary tract symptoms (ICD-10 - N40.0) 01/02/2025 Heart failure, unspecified (ICD-10 - I50.9) [...] Name:Gigi Justin , 06/12/2025 02:30:00 PM, [address] [facility] [place], [facility] [address], [place], [address],
--- OUTSIDE RECORDS SUMMARY | 2025-05-24 06:49 | XMS_ITS | Encounter Summary ---
Author Organization [facility] Address [address] [place] [address] Care Team Providers Care Senior Product Integrity Engineer Name Role Phone Bennie Nova MD Primary Care Provider Alison jeronimo Encounter Details Date Type Department Care Team (Late st Contact Info) Description 04/13/2024 Lab Requisition [facility] - DermPath Lab [address] [facility], [place] [address] Lou Clark PA-C [address] [place] [address] Neoplasm of uncertain behavior of skin Social History Tobacco Use Types Packs/Day Years Used Date Smoking Tobacco: Never Alcohol Use Standard Drinks/Week Comments Not Asked 0 (1 standard drink = 0.6 oz pur e alcohol) Sex and Gender Information Value Date Recorded Sex Assigned at Not on file 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 Gender Identity Not on file Sexual Orientation Not on file documented as of this encounter Plan of Treatment Not on file documented as of this encounter Procedures Procedure Name Priority Date/Time Associated Diagnosis Comments DERMATOPATHOLOGY Routine 04/13/2024 12:0 0 AM CDT Neoplasm of uncertain behavior of skin documented in this encounter Results * DERMATOPATHOLOGY (04/13/2024 12:00 AM CDT) Case Report Dermatopathology Report Case: [id number] Authorizing Provider: Lou Clark, Collected: 04/13/2024 12:00 AM HELEN Ordering Location: [facility] - Received: 04/16/2024 11:01 AM DermPath [...] determined by the Dermatopathology Laboratory at [facility], directed by Dr. Luba Garcia. These tests need not be, and therefore are not, approved by the [place] Food and Drug Administration. The tests are used for clinical purposes. Billing Codes Specimen Charges Stain Charges 06878 28773 1 1 4 1:29 PM CDT DERMATOPATHOLOGY LABORATORY Embedded Images 1:29 PM CDT DERMATOPATHOLOGY LABORATORY Pathology/Cytology TISSUE SPECIMEN FROM SKIN / Unknown 04/13/2024 04/16/2024 11:01 AM CDT Miscellaneous samples (specimen) TISSUE SPECIMEN FROM SKIN / Unknown 04/13/2024 04/16/2024 11:01 AM CDT Lou Clark PA-C LAB - PATHOLOGY/CYTO LOGY ORDERABLES Final Result DERMATOPATHOLOGY LABORATORY [facility] - Department of Dermatology [facility] [address] [place] [address], [address] [phone] documented in this encounter Visit Diagnoses Diagnosis Neoplasm of uncertain behavior of skin documented in this encounter Care Teams Senior Product Integrity Engineer Relationship Specialty Start Date End Date Bennie Nova MD PCP - General Internal Medicine 10/10/12 documented as of this encounter
--- OUTSIDE RECORDS SUMMARY | 2025-05-24 06:49 | XMS_ITS | Continuity of Care Document ---
Author Organization [facility] Address [address] [place] [address] [place] [address] Phone Care Team Providers Care Risk Management Specialist Name Role Phone Hoa Gonzalez Unavailable Unavailable Procedures Procedure Date Eye Exam & Treatment Refraction Eye Exam & Treatment Eye Exam & Treatment Refraction Advance Directives Directive Yes / No Effective Date File Name No Information Encounters Encounter Description Practice Location Reason(s) For Visit Diagnoses Date Provider Providers Copied on Encounter [facility], [address] [place] [address] [address], [place], [place], [id number], tel:[phone] [facility] No Information Jan- 4-201 0 Lisa Solitario [address], [place], [place], [facility], [place]. tel:[phone] [facility], [address] [place] [address] [address], [place], [place], [id number], [place] tel:[phone] [facility] No Information 9-200 9 Lisa Solitario [address], [place], [place], [facility], [place]. tel:[phone] [facility], [address] [place] [address] [address], [place], [place], [id number], tel:[phone] [facility] No Information 7200 7 Lisa Camara. [address] , [address], [place], [address], [place]. tel:[phone] Family History Family Member Type Diagnosis Age At Onset No Information Payers Payer name Insurance type Covered republican ID Authorheidy guerrero(s) [facility] Out Of State [id number] Social History Type Description Quantity Date Captured [...]
--- OUTSIDE RECORDS SUMMARY | 2025-05-24 06:49 | XMS_ITS ---
Author Organization [facility] Address [address] [facility] [address] [place] [address] Care Team Providers Care Planer Setup Operator Name Role Phone Nhan Gigi Unavailable [phone] Social History Sex Assigned At : Social History Observation Description Sex Assigned At Male Problems Problem Type SNOMED Code ICD Code Onset Dates Problem Status W/U Status Risk Notes Problem Chronic kidney disease stage 2 (523171766) Chronic kidney disease, stage 2 (mild) (N18.2) Active confirmed Encounters Encounter Location Date Provider Diagnosis [place] [facility] [address] [facility] [address] [place] [address] 01/02/2025 Gigi Justin Chronic kidney disea se, [...] Next Appt Details Provider Name:Gigidorothy Justin , 06/12/2025 02:30:00 PM, [address] [facility], [facility] [address], [place], [address], Progress Notes * MANNIE CABELLODOB:1950 ( 75 yo F)Acc No.[id number]:01/02/2025 Progress Notes Patient: MANNIE APARICIO Provider: Nayeli MAE MD, F.A.C.P, F.A.S.N. :1950 A ge:74 Y S ex:Female Date:01/02/2025 Address:[address] [place] [address] [address] [place] [address] Subjective: * Chief Complaints: * * Medical [...] Treatment: * Billing Information: * Visit Code: 46233 Office Visit, Est Pt., Level 4. * Procedure Codes: * Electronic signature of Fox Justin MD on 05/24/2025 at 06:48 AM CDT Sign off status: Pending * Provider: Nayeli MAE MD, Brandon.Jose.C.P, F.A.S.N. Date: 0 01/02/2025 Generated for Printing/Faxing/eTransmitting on: 0 05/24/2025 06:48 AM CDT
--- OUTSIDE RECORDS SUMMARY | 2025-05-24 06:49 | XMS_ITS | Data Portability ---
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 Name Role Phone NAHED PATTERSON Primary Care Provider NAHED PATTERSON Referring Provider STELLA WYMAN Pediatrician Managing Partner GIGI RUIZ Promotion Manager Assessment Encounter Date Assessment Date Assessment LastModified by Organization Details LastModified Time 09/04/2024 09/04/2024 10/20/2023: A1C 5.8 PSA 0.72 [...] Hep panel Neg Not available 12/06/2024 12:26:15 04/16/2025 04/16/2025 10/20/2023: A1C 5.8 PSA 0.72 Gluc 100 [...] Glob 2.2L, TP WNL Hep panel Neg 04/09/2025: A1C 5.8 Not available 04/14/2025 11:52:13 Plan of Treatment Reminders Order Date Submit Date Provider Last Modified By Organization Details Last Modified Time Details Appointments Any 15 2024 08:45A M Nahed vasquez MD Not available Not available Not available Lab lipid panel, serum [email or web address] [place] [address] (Lab), [address] [place], [address], 04/16/2025 09:40:52 CBC w/ auto diff 2024 025 ROSA [facility] (Lab), [address] [place], [address], 05/06/2025 12:38:36 CMP, serum or plasma 2024 025 [facility] (Lab), [address] [place], [address], 05/06/2025 12:38:36 TSH, serum or plasma [address] (Lab), [address] [place], [address], 04/16/2025 09:40:53 vitamin D, 25-hydrox y, total, serum [address] (Lab), [address] [place], [address], 04/16/2025 09:40:53 glycohemo globin, total, blood [address] (Lab), [address] [place], [address], 04/16/2025 09:40:52 microalbu min, urine [address] (Lab), [address] [place], [address], 04/16/2025 09:40:52 urinalysi s, dipstick 2024 025 [facility], [address] [facility] [address], [place], [address], 12/17/2024 10:49:09 lipid panel, serum [address] (Lab), [address] [place], [address], 12/06/2024 09:45:12 CBC w/ auto diff 2024 025 [facility] (Lab), [address] [place], [address], 2025 13:52:13 CMP, serum or plasma 2024 025 [facility] (Lab), [address] [place], [address], 2025 13:52:13 TSH, serum or plasma [address] (Lab), [address] [place], [address], 12/06/2024 09:45:13 vitamin D, 25-hydrox y, total, serum 2024 025 [facility] (Lab), [address] [place], [address], 04/24/2025 12:52:59 glycohemo globin, total, blood 2024 025 [facility] (Lab), [address] [place], [address], 04/24/2025 12:53:26 microalbu min, urine [address] (Lab), [address] [place], [address], 12/06/2024 09:45:12 lipid panel, serum [address] (Lab), [address] [place], [address], 03/04/2025 14:07:45 CBC w/ auto diff [address] (Lab), [address] [place], [address], 03/04/2025 14:07:46 CMP, serum or plasma [address] (Lab), [address] [place], [address], 03/04/2025 14:07:46 TSH, serum or plasma [address] (Lab), [address] [place], [address], 03/04/2025 14:07:46 vitamin D, 25-hydrox y, total, serum [address] (Lab), [address] [place], [address], 03/04/2025 14:07:46 glycohemo globin, total, blood [address] (Lab), [address] [place], [address], 03/04/2025 14:07:45 microalbu min, urine [address] (Lab), [address] [place], [address], 03/04/2025 14:07:45 Referral nephrolog ist referral - Please call patient to schedule an appointme nt. Thank you. 2024 025 FLETCHER Ruiz MD (Nephrology, [address], [address], [place], [address], 04/19/2025 14:10:31 pulmonolo gist referral - Please call patient to schedule an appointme nt. Thank you. 2024 025 [email or web address] Pham Aldridge STATISTICAL TYPIST-C, [address] [facility], [address], [place], [address], 04/19/2025 17:28:23 urologist referral - Please call patient to schedule an appointme nt. Thank you. 2024 025 [facility], [address], [address], [place], [address], 04/18/2025 10:39:21 podiatris t referral - Please call patient to schedule an appointme nt. Thank you. ( I believe this patient is already being followed by your office) 2024 025 FLETCHER Wu [facility], [address], [place], [address], 04/18/2025 10:46:26 nephrolog ist referral - Please call patient to schedule an appointme nt. Thank you. 2024 025 [email or web address] Gigi Ruiz MD (Nephrology, [address], [address], [place], [address], 01/15/2025 18:05:31 pulmonolo gist referral - Please call patient to schedule an appointme nt. Thank you. 2024 025 [email or web address] Pham MIXONP-C, [address] [place] [address] [address], [place], [address], 02/12/2025 08:48:37 urologist referral - Please call patient to schedule an appointme nt. Thank you. 2024 025 [email or web address] Rafael Mares, [address] [facility], [facility] [address], [place], [address], 12/10/2024 15:04:30 podiatris t referral - Please call patient to schedule an appointme nt. Thank you. ( I believe this patient is already being followed by your office) 2024 025 FLETCHER Wu [facility], [address], [address], [place], [address], 12/10/2024 14:50:39 cardiolog ist referral - Please call patient to schedule an appointme nt. Thank you. 2024 025 [email or web address] Darvin Birmingham MD, [address], [address], [place], [address], 04/11/2025 09:43:29 nephrolog ist referral 2023 024 tammy Ruiz MD (Nephrology, [address], [address], [place], [address], 09/10/2024 10:02:41 pulmonolo gist referral - Please call patient to schedule. 2023 024 [email or web address] Pham Aldridge STATISTICAL TYPIST-C, [address] [facility], [address], [place], [address], 09/21/2024 13:26:19 urologist referral - Please call patient to schedule. 2023 024 ROSA Mares, [address] [facility], [facility] [address], [place], [address], 09/12/2024 16:30:27 podiatris t referral - Please call patient to schedule. 2023 024 [email or web address] Marcelino Wu DPM, [address], [address], [place], [address], 05/14/2025 08:20:24 cardiolog ist referral 2023 024 tammy Wyman MD, [address] [facility], [address], [place], [address], 09/10/2024 10:02:41 Procedures None recorded. Surgeries None recorded. Imaging None recorded. Medication Orders tamsulosi n 0.4 mg capsule 2024 025 [facility] #[id number], [address], [place], [address], 12/14/2024 16:12:42 Patient TargetsNo targets recorded. Patient Instructions Encounter Date Encounter Id Patient Instructions Last Modified By Organization Details Last Modified Time 09/12/2024 [id number] 1. The patient i s already taking tamsulosin and finasteride 2. I really do not think there is anything I can offer except limit his fluids but otherwise no other recommendations and just follow up as needed Not available 09/12/2024 16:15:42 12/14/2024 [id number] 1. BPH with obstruction 2. I will increase his tamsulosin to 2 capsules a day he will take it at 6:00 p.m. 3. He can either have his primary care refill the prescription or he can come back here in 1 year Not available 12/14/2024 16:12:13 Reason for Referral Application Systems Administrator Referral for Type 2 diabetes mellitus without complication Please call patient to schedule. Referring Physician: Nahed Patterson Internal Medicine, Encounter Date: 09/04/2024 Pediatrician Managing Partner Referral for Co ronary arteriosclerosis Referring Physician: Nahed Patterson Internal Medicine, Encounter Date: 09/04/2024 [employer] Weaver Referral for O bstructive sleep apnea syndrome Please call patient to schedule. Referring Physician: Nahed Patterson Internal Medicine, Encounter Date: 09/04/2024 Promotion Manager Referral for Pr oteinuria Referring Physician: Nahed Patterson Internal Medicine, Encounter Date: 09/04/2024 Urologist Referral for Urina ry incontinence Please call patient to schedule. Referring Physician: Nahed Patterson Internal Medicine, Encounter Date: 09/04/2024 Application Systems Administrator Referral for Type 2 diabetes mellitus without complication Please call patient to schedule an appointment. Thank you. ( I believe this patient is already being followed by your office) Referring Physician: Bernard Lieberman Medicine, Encounter Date: 12/06/2024 Pediatrician Managing Partner Referral for Co ronary arteriosclerosis Please call patient to schedule an appointment. Thank you. Referring Physician: Bernard Lieberman, Encounter Date: 12/06/2024 [employer] Weaver Referral for O bstructive sleep apnea syndrome Please call patient to schedule an appointment. Thank you. Referring Physician: Nahed Patterson Internal Medicine, Encounter Date: 12/06/2024 Promotion Manager Referral for Pr oteinuria Please call patient to schedule an appointment. Thank you. Referring Physician: Nahed Patterson Internal Medicine, Encounter Date: 12/06/2024 Urologist Referral for Urina ry incontinence Please call patient to schedule an appointment. Thank you. Referring Physician: Nahed Patterson Internal Medicine, Encounter Date: 12/06/2024 Application Systems Administrator Referral for Type 2 diabetes mellitus without complication Please call patient to schedule an appointment. Thank you. ( I believe this patient is already being followed by your office) Referring Physician: Nahed Patterson [facility] Medicine, Encounter Date: 04/16/2025 [employer] Weaver Referral for O bstructive sleep apnea syndrome Please call patient to schedule an appointment. Thank you. Referring Physician: Nahed Patterson [facility] Medicine, Encounter Date: 04/16/2025 Promotion Manager Referral for Pr oteinuria Please call patient to schedule an appointment. Thank you. Referring Physician: Nahed Patterson [facility] Medicine, Encounter Date: 04/16/2025 Urologist Referral for Urina ry incontinence Please call patient to schedule an appointment. Thank you. Referring Physician: Nahed Patterson [facility] Medicine, Encounter Date: 04/16/2025 Results Created Date Observation Date Name Description Value Unit Range Abnormal Flag Note LastModifiedBy Organization Detail LastModifiedTime 08/31/20 24 08/31/2024 CBC/C OMPLE TE BLD COUNT W/DIF F white blood cells 7.4 x10'3 /uL 4.2-10 .8 Not Available [facility] (Lab) [address] [place], [address], 08/31/2024 11:18:30 08/31/20 24 08/31/2024 CBC/C OMPLE TE BLD COUNT W/DIF F red blood cells 4.90 x10'6 /uL 4.10-5 .80 Not Available [facility] (Lab) [address] [place], [address], 08/31/2024 11:18:30 08/31/2008/31/2024 CBC/C OMPLE TE BLD COUNT W/DIF F hemoglobin 14.9 g/dL 13.2-1 7.0 Not Available [facility] (Lab) [address] [place], [address], 08/31/2024 11:18:30 08/31/2008/31/2024 CBC/C OMPLE TE BLD COUNT W/DIF F hematocrit 45.5 % 39.3-5 0.0 Not Available [facility] (Lab) [address] [place], [address], 08/31/2024 11:18:30 08/31/2008/31/2024 CBC/C OMPLE TE BLD COUNT W/DIF F mean red cell volume 92.9 fL 80.0-9 7.0 Not Available [facility] (Lab) [address] [place], [address], 08/31/2024 11:18:30 08/31/2008/31/2024 CBC/C OMPLE TE BLD COUNT W/DIF F mean red cell hemoglobin 30.4 pg 27.0-3 3.0 Not Available [facility] (Lab) [address] [place], [address], 08/31/2024 11:18:30 08/31/2008/31/2024 CBC/C OMPLE TE BLD COUNT W/DIF F mean RBC HGB concentratio n 32.7 g/dL 31.0-3 6.0 Not Available [facility] (Lab) [address] [place], [address], 08/31/2024 11:18:30 08/31/2008/31/2024 CBC/C OMPLE TE BLD COUNT W/DIF F red cell distribution width 14.0 % 11.8-1 5.5 Not Available [facility] (Lab) [address] [place], [address], 08/31/2024 11:18:30 08/31/2008/31/2024 CBC/C OMPLE TE BLD COUNT W/DIF F platelets 151 x10'3 /uL 150-40 0 Not Available [facility] (Lab) [address] [place], [address], 08/31/2024 11:18:30 08/31/2008/31/2024 CBC/C OMPLE TE BLD COUNT W/DIF F mean platelet volume 10.0 fL 9.0-12 .4 Not Available [facility] (Lab) [address] [place], [address], 08/31/2024 11:18:30 08/31/2008/31/2024 CBC/C OMPLE TE BLD COUNT W/DIF F neutrophils 78.8 % 39.0-7 2.0 high Not Available [facility] (Lab) [address] [place], [address], 08/31/2024 11:18:30 08/31/2008/31/2024 CBC/C OMPLE TE BLD COUNT W/DIF F lymphocytes 11.8 % 16.0-4 7.0 low Not Available [facility] (Lab) [address] [place], [address], 08/31/2024 11:18:30 08/31/20 24 08/31/2024 CBC/C OMPLE TE BLD COUNT W/DIF F monocytes 8.1 % 5.0-12 .0 Not Available [facility] (Lab) [address] [place], [address], 08/31/2024 11:18:30 08/31/2008/31/2024 CBC/C OMPLE TE BLD COUNT W/DIF F eosinophils 0.5 % 1.0-7. 0 low Not Available [facility] (Lab) [address] [place], [address], 08/31/2024 11:18:30 08/31/2008/31/2024 CBC/C OMPLE TE BLD COUNT W/DIF F basophils 0.3 % 0.0-2. 0 Not Available [facility] (Lab) [address] [place], [address], 08/31/2024 11:18:30 08/31/2008/31/2024 CBC/C OMPLE TE BLD COUNT W/DIF F immature granulocytes 0.5 % 0.00-0 .50 Not Available [facility] (Lab) [address] [place], [address], 08/31/2024 11:18:30 08/31/2008/31/2024 CBC/C OMPLE TE BLD COUNT W/DIF F neutrophils, absolute count 5.82 x10'3 /uL 1.5-8. 0 Not Available [facility] (Lab) [address] [place], [address], 08/31/2024 11:18:30 08/31/2008/31/2024 CBC/C OMPLE TE BLD COUNT W/DIF F lymphocytes, absolute count 0.87 x10'3 /uL 1.07-3 .43 low Not Available [facility] (Lab) [address] [place], [address], 08/31/2024 11:18:30 08/31/20 24 08/31/2024 CBC/C OMPLE TE BLD COUNT W/DIF F monocytes, absolute count 0.60 x10'3 /uL 0.29-0 .99 Not Available [facility] (Lab) [address] [place], [address], 08/31/2024 11:18:30 08/31/20 24 08/31/2024 CBC/C OMPLE TE BLD COUNT W/DIF F eosinophils, absolute count 0.04 x10'3 /uL 0.02-0 .53 Not Available [facility] (Lab) [address] [place], [address], 08/31/2024 11:18:30 08/31/2008/31/2024 CBC/C OMPLE TE BLD COUNT W/DIF F basophils, absolute count 0.02 x10'3 /uL 0.01-0 .08 Not Available [facility] (Lab) [address] [place], [address], 08/31/2024 11:18:30 08/31/2008/31/2024 CBC/C OMPLE TE BLD COUNT W/DIF F immature granulocytes ,absolute 0.04 x10'3 /uL 0.00-0 .05 Not Available [facility] (Lab) [address] [place], [address], 08/31/2024 11:18:30 08/31/20 24 08/31/2024 CBC/C OMPLE TE BLD COUNT W/DIF F nucleated red blood cells 0.0 % -0 Not Available [facility] (Lab) [address] [place], [address], 08/31/2024 11:18:30 08/31/20 24 08/31/2024 CBC/C OMPLE TE BLD COUNT W/DIF F NRBC# 0.00 x10'3 /uL Not Available [facility] (Lab) [address] [place], [address], 08/31/2024 11:18:30 08/31/2008/31/2024 MICRO ALBUM IN RANDO M URINE microalbumin , urine 19.9 mg/L 0.0-16 .6 high Not Available [facility] (Lab) [address] [place], [address], 08/31/2024 11:40:26 08/31/20 24 08/31/2024 LIPID PANEL cholesterol 151 mg/dL 140-19 9 NIH SHANA NSUS RECOM MENDA TION FOR VICKY STERO L: ADULT CHILD LOW RISK: <200 <170 BORDE RLINE : <200- 239 ----- HIGH RISK: >240 >200 Not Available [facility] (Lab) [address] [place], [address], 08/31/2024 11:43:16 08/31/20 24 08/31/2024 LIPID PANEL triglyceride s 168 mg/dL 0-150 high NIH SHANA NSUS REPOR T RECOM MENDA TION FOR TRIGL YCERI VIOLETTA: ADULT CHILD LOW RISK: <150 ----- BODER LINE: 150-1 99 ----- HIGH RISK: >200 ----- Not Available [facility] (Lab) [address] [place], [address], 08/31/2024 11:43:16 08/31/20 24 08/31/2024 LIPID PANEL HDL cholesterol 45 mg/dL 40- Not Available [facility] (Lab) [address] [place], [address], 08/31/2024 11:43:16 08/31/20 24 08/31/2024 LIPID PANEL LDL cholesterol, calculated 72 mg/dL [...] LDL RESUL T WILL NOT BE REPOR SHANANN. Not Available [facility] (Lab) [address] [place], [address], 08/31/2024 11:43:16 08/31/2008/31/2024 COMPR EHENS DEANNA METAB OLIC PANEL sodium 138 mmol/ L 137-14 5 Not Available [facility] (Lab) [address] [place], [address], 08/31/2024 11:43:26 08/31/2008/31/2024 COMPR EHENS DEANNA METAB OLIC PANEL potassium 5.0 mmol/ L 3.5-5. 1 Not Available [facility] (Lab) [address] [place], [address], 08/31/2024 11:43:26 08/31/2008/31/2024 COMPR EHENS DEANNA METAB OLIC PANEL chloride 104 mmol/ L 98-107 Not Available [facility] (Lab) [address] [place], [address], 08/31/2024 11:43:26 08/31/2008/31/2024 COMPR EHENS DEANNA METAB OLIC PANEL carbon dioxide 28 mmol/ L 22-30 Not Available [facility] (Lab) [address] [place], [address], 08/31/2024 11:43:26 08/31/2008/31/2024 COMPR EHENS DEANNA METAB OLIC PANEL anion gap 11.0 mmol/ L 14-22 low Not Available [facility] (Lab) [address] [place], [address], 08/31/2024 11:43:26 08/31/2008/31/2024 COMPR EHENS DEANNA METAB OLIC PANEL glucose 107 mg/dL 70-99 high Not Available [facility] (Lab) [address] [place], [address], 08/31/2024 11:43:26 08/31/2030 0808/31/2024 COMPR EHENS DEANNA METAB OLIC PANEL BUN 16 mg/dL 8-19 Not Available [facility] (Lab) [address] [place], [address], 08/31/2024 11:43:26 08/31/20 24 08/31/2024 COMPR EHENS DEANNA METAB OLIC PANEL creatinine 0.76 mg/dL 0.66-1 .25 Not Available [facility] (Lab) [address] [place], [address], 08/31/2024 11:43:26 08/31/2008/31/2024 COMPR EHENS DEANNA METAB OLIC PANEL GFR >60 Refer ence Range : [place] ge GFR Healt hy Adult : >60 [...] or ethni c subgr oups, such as Arnold nics. Outsi de the valid ated tiffanie [...] calcu lator is avail able on the F websi te: https ://fozia luna.o rg/pr ofess ional s/kdo qi/gf r_cal culat or Not Available [facility] (Lab) [address] [place], [address], 08/31/2024 11:43:26 08/31/2008/31/2024 COMPR EHENS DEANNA METAB OLIC PANEL alkaline phosphatase 64 U/L 38-126 Not Available [facility] (Lab) [address] [place], [address], 08/31/2024 11:43:26 08/31/2008/31/2024 COMPR EHENS DEANNA METAB OLIC PANEL alanine aminotransfe rase 17 U/L 0-50 Not Available [facility] (Lab) [address] [place], [address], 08/31/2024 11:43:26 08/31/2008/31/2024 COMPR EHENS DEANNA METAB OLIC PANEL aspartate aminotransfe rase 23 U/L 15-46 Not Available [facility] (Lab) [address] [place], [address], 08/31/2024 11:43:26 08/31/2008/31/2024 COMPR EHENS DEANNA METAB OLIC PANEL bilirubin, total 0.80 mg/dL 0.20-1 .30 Not Available [facility] (Lab) [address] [place], [address], 08/31/2024 11:43:26 08/31/2008/31/2024 COMPR EHENS DEANNA METAB OLIC PANEL calcium 9.4 mg/dL 8.4-10 .2 Not Available [facility] (Lab) [address] [place], [address], 08/31/2024 11:43:26 08/31/2008/31/2024 COMPR EHENS DEANNA METAB OLIC PANEL total protein 6.0 g/dL 6.3-8. 2 low Not Available [facility] (Lab) [address] [place], [address], 08/31/2024 11:43:26 08/31/20 24 08/31/2024 COMPR EHENS DEANNA METAB OLIC PANEL albumin 3.7 g/dL 3.0-4. 4 Not Available [facility] (Lab) [address] [place], [address], 08/31/2024 11:43:26 08/31/20 24 08/31/2024 COMPR EHENS DEANNA METAB OLIC PANEL globulin 2.3 g/dL 2.6-4. 2 low Not Available [facility] (Lab) [address] [place], [address], 08/31/2024 11:43:26 08/31/2008/31/2024 COMPR EHENS DEANNA METAB OLIC PANEL A/G ratio 1.6 ratio 1.0-2. 0 Not Available [facility] (Lab) [address] [place], [address], 08/31/2024 11:43:26 08/31/2008/31/2024 TSH W/REF SAAD FT4 TSH with reflex free T4 0.684 uIU/m L 0.465- 4.680 Not Available [facility] (Lab) [address] [place], [address], 08/31/2024 12:03:05 08/31/2008/31/2024 VITAM IN D 25-HY DROXY [id number] 24.1 NG/mL 30-100 low Vitam in D Statu s: Defic ient: <20 ng/mL Insuf ficie nt: 20-29 ng/mL Suffi cient : 30-10 0 ng/mL Not Available [facility] (Lab) [address] [place], [address], 08/31/2024 12:05:58 08/31/20 24 09/03/2024 HEMOG LOBIN A1C HA1C 5.9 % 4.0-6. 0 Diabe sal Scree elliott Crite jack: <5.7% Consi stent with absen ce of diabe sal 5.7-6 .4% Consi stent with incre ased risk for diabe sal (pred iabet es) >OR=6 .5% Consi stent with diabe sal REFER ENCE: Diabe sal Care 2016, 39(Zacarias ppl.1 ):s13 -s22 Not Available [facility] (Lab) [address] [place], [address], 09/03/2024 14:39:57 09/14/20 24 09/14/2024 imagi ng/di agnos tic resul t No observ ation record ed. [address] [facility] [address] [facility] [address], [place], [address], 10/23/2024 09:07:00 09/18/20 24 09/18/2024 CT, angio gram, chest + abdom en + pelvi s, w/ contr ast No observ ation record ed. [address] [place], [address], 10/23/2024 09:08:31 09/27/20 24 09/27/2024 XR, chest , 2 view No observ ation record ed. [address] [place], [address], 10/23/2024 09:08:46 10/24/20 24 10/24/2024 US, liver [facility] [address] [place] [address] [phone] Patien t Name: MANNIE CABELLO Access ion #: [id number] Sex: M : 1949 4 Dictat ed By: Lashell bryant Francisco Attend ing Physic franklyn: ALFONZO HEBERT Orderjai ng Physic franklyn: ALFONZO HEBERT Exam Date: [...] at 2023 07:51: 24 AM Page 1 [email or web address] [facility] ([facility]) [address] [place], [address], 11/27/2024 11:50:16 01/30/2001/29/2025 imagi ng/di agnos tic resul t No observ ation record ed. [address] [place] [address], [address], 2025 17:01:47 02/04/2002/03/2025 imagi ng/di agnos tic resul t No observ ation record ed. [facility] [address] [facility] [address], [place], [address], 02/03/2025 11:27:52 02/04/2002/03/2025 imagi ng/di agnos tic resul t No observ ation record ed. [address], [address], 02/03/2025 12:32:48 05/06/20 25 05/06/2025 imagi ng/di agnos tic resul t No observ ation record ed. [facility] [address], [place], [address], 05/06/2025 08:54:34 05/06/20 25 05/06/2025 imagi ng/di agnos tic resul t No observ ation record ed. [facility] [address], [place], [address], 05/06/2025 11:41:19 05/06/20 25 05/06/2025 imagi ng/di agnos tic resul t No observ ation record ed. [facility] [address], [place], [address], 05/06/2025 11:44:27 05/06/20 25 05/06/2025 imagi ng/di agnos tic resul t No observ ation record ed. [facility] [address], [place], [address], 05/06/2025 11:46:03 05/06/20 25 05/06/2025 imagi ng/di agnos tic resul t No observ ation record ed. [facility] [address], [place], [address], 05/06/2025 11:54:04 05/06/20 25 05/06/2025 imagi ng/di agnos tic resul t No observ ation record ed. [facility] [address], [place], [address], 05/06/2025 13:01:29 05/06/20 25 05/06/2025 imagi ng/di agnos tic resul t No observ ation record ed. [facility] [address], [place], [address], 05/06/2025 14:56:43 Result Notes None recorded. Problems Name Problem SNOMED Code Status Onset Date Resolution Date Notes Provider Name and Address Organization Details Recorded Time Osteoarthr itis of knee 252861436 Active Not Available [facility] 3 12:47:20 Arthropath y of joint of hand 948899834 Active Not Available [facility] 3 12:47:20 Osteoarthr itis 076646938 Active 2021 Not Available [facility] 3 12:47:20 Spinal stenosis of lumbar region 82780003 Active 2022 Not Available [facility] 3 12:47:20 Morbid obesity 891076168 Active 2022 Not Available [facility] 3 12:47:20 Low back pain 775563418 Active 2022 Not Available [facility] 3 12:47:20 Osteoarthr itis of right knee joint 6280970553689 00 Active 2022 BENNIE Luis null, [facility] [facility] 3 08:45:57 Coronary arterioscl erosis 12800812 Active 2022 Nahed bryant MD [address], [place], [address] , [facility] 3 13:56:07 Type 2 diabetes mellitus without complicati on 355426419 Active 2022 Nahed bryant MD [address], [place], [address] , [facility] 3 13:56:16 Hyperlipid emia 44387177 Active 2022 Nahed bryant MD [address], [place], [address] , [facility] 3 13:56:56 Vitamin D deficiency 87922344 Active 2022 Nahed bryant MD [address], [place], [address] , [facility] 3 14:07:39 Urinary incontinen ce 659874033 Active 2022 Nahed bryant MD [address], [place], [address] , [place] [facility] 3 14:23:53 Gastroesop hageal reflux disease without esophagiti s 367333477 Active 2022 Nahed bryant MD [address], [address], [place], [address] , [facility] 3 14:24:14 Chronic pain 58548092 Active 2022 Nahed bryant MD [address], [address], [place], [address] , [facility] 3 14:24:54 Atrial fibrillati on 76578578 Active 2022 Nahed bryant MD [address], [place], [address] , [facility] 3 14:25:54 Obstructiv e sleep apnea syndrome 60376923 Active 2022 Nahed bryant MD [address], [place], [address] , [facility] 3 14:26:12 Bilateral osteoarthr itis of knees 3294242665483 07 Active 2022 BENNIE Luis null, [place] [facility] 3 08:33:04 Osteoarthr itis of left knee joint 4814744320561 09 Active 2022 Amaya Beth CMA null, [place] [facility] 3 08:49:55 Chronic diarrhea 360824702 Active 2023 [facility] 4 11:40:20 Proteinuri a 44100506 Active 2023 Nahed bryant MD [address], [place], [address] , [facility] 4 17:27:16 Pain of left knee joint 7053387598002 07 Active 2023 Nahed bryant MD [address], [place], [address] , [facility] 4 09:36:49 Diarrhea 24580805 Active 2023 Nahed bryant MD [address], [place], [address] , [facility] 4 10:17:42 Chronic pain syndrome 198873571 Active 2023 Evelina Best MA [facility], [facility] 4 14:16:46 Neuropathy 664497352 Active 2023 Nahed bryant MD [address], [place], [address] , [facility] 4 15:37:24 Pruritic rash 14475563 Active 2023 Nahed bryant MD [address], [place], [address] , [facility] 4 09:27:08 Lesion of skin of face 125553121894 Active 2023 MD Kaelyn [address], [place], [address] , [facility] 4 09:29:33 Erectile dysfunctio n 689730676 Active 2023 Nahed bryant MD [address], [place], [address] , [facility] [employer] [facility] 4 12:03:37 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 090474650 Active 2023 Rafael Mares MD [address] [place] [address], [facility] [address], [place], [address] , [facility] [employer] [facility] 4 16:15:23 Paratrache al lymphadeno tierra 80303558 Active 2023 Mildred Fam CMA null, [place] [employer] [facility] [employer] [facility] 4 09:52:03 Non-alcoho lic fatty liver 022188960 Active 2023 Mildred Fam CMA null, [employer] [facility] [employer] [facility] 4 09:56:45 Hepatomega ly 13696324 Active 2023 Mildred Fam CMA null, [employer] [facility] [employer] [facility] 4 16:09:09 Notes:Medical History: Anxie ty Rhinitis with postnasal drip Obesity with very sevre OSAHS, AHI = 49, 01/22/16, off autoCPAP Hypertension Hyperlipidemia T2DM with neuropathy CAD s/p DC ZACK Urge urinary incontinence BPH RLS Gout Knee/Hand OA on hydrocodone Procedure History: T&A 1957 CABG 1993 AVR 2004 Gastric sleeve surgery 2016 Problem Notes None recorded. Procedures Surgical History Date Name Laterality Status Provider Name and Address Organization Details Recorded Time 03/16/20 24 Pacemaker completed BENNIE Saldivar [place] [employer] [facility] [employer] [facility] 04/26/2024 09:09:47 01/26/20 Medicare Wellness CPT Code, subsequent completed Eusebia Taylor [place] [employer] [facility] [employer] [facility] 01/26/2024 10:46:49 11/07/19 00 bariatric operative procedure completed Bibiana Manzano [place] [employer] [facility] [employer] [facility] 09/12/2024 14:14:45 open heart surgery completed BENNIE Saldivar [facility] [employer] [facility] 10/20/2023 14:17:29 Knee Replacement completed BENNIE Saldivar [facility] [employer] [facility] 10/20/2023 14:06:52 Knee completed Valarie Reed Jose [facility] [employer] [facility] 10/20/2023 14:07:29 Tonsillectomy completed BENNIE Saldivar [place] [facility] 10/20/2023 14:07:35 Imaging Results None recorded. Procedure Notes None recorded. Medical Equipment None Reported. Allergies No known drug allergies Medications Name Sig Start Date Stop Date Status Note LastModified by Organization Details LastModified Time amoxicillin 500 mg capsule TAKE ONE CAPSULE BY MOUTH 3 TIMES DAILY FOR 5 DAYS 04/16 completed Not Available Not Available Not Available atorvastati n 40 mg tablet TAKE [...] PAIN *DO NOT EXCEED 8 TABLETS DAILY* 04/16 completed Not Available Not Available Not [...] Not Available Cholestyram ine Light 4 gram powder [...] Not Available Not Available No t Available NexidiaToGeneral Fusion Ultra Test strips USE TO TEST TWICE DAILY active Not Available Not Available No t Available Kenalog 10 mg/mL suspension for injection in office 01/25 completed [facility]: 0003- 0494- 20 Not Available Not Available Not Available doxycycline monohydrate 100 mg capsule TAKE 1 CAPSULE BY MOUTH TWICE A DAY FOR 7 DAYS 12/30 completed Not Available Not Available Not Available hydrocodone 7.5 mg-acetamin ophen 325 mg tablet TAKE 1 TABLET BY MOUTH ONCE TO TWICE DAILY NEEDED active Not Available Not [...] 1 TABLET BY MOUTH EVERY DAY NEEDED 04/16 completed Not Available Not Available Not Available clotrimazol e-betametha sone 1 %-0.05 % topical cream APPLY TO AFFECTED AREA TWICE A DAY 09/12 completed Not Available Not Available Not Available warfarin 5 mg tablet TAKE 1 TABLET BY MOUTH EVERY EVENING EXCEPT ON EXCEPT ON MON, WED AND FRI TAKE 1&1/2 TABS (7.5 MG) active Not Available Not Available No t [...] TAKE 1 CAPSULE BY MOUTH EVERY DAY active Not Available Not Available No t Available finasteride 5 mg tablet TAKE 1 TABLET BY MOUTH EVERY DAY active Not Available Not Available No t Available amoxicillin 875 mg-potlilianu m clavulanate 125 mg tablet TAKE 1 [...] Available Not Available Vitamin B12 1,000mg daily 04/16 completed Not Available Not Available Not Available hydrocodone 7.5 mg-acetamin ophen 300 mg tablet TAKE 1 TABLET BY MOUTH EVERY DAY NEEDED 12/06 completed Not Available Not Available Not Available lidocaine (PF) 10 mg/mL (1 %) injection solution In office injection administe red by the provider 11/10 completed [facility]: 0409- 4276- 17 Not Available Not Available [...] , administe red by provider 12/15 completed [facility] 37060 -064- 01 Not Available Not Available Not [...] INJECT 0.25MG UNDER THE SKIN ONCE WEEKLY [id number] THEN INCREASE TO 0.5MG ONCE WEEKLY [id number] 10/20 completed Not Available Not Available Not [...] INJECT 2MG UNDER THE SKIN ONCE WEEKLY 2024 active Not Available Not Available Not Avai lable Vitals Date Recorded Body height Body mass index (BMI) Body weight Body temperature Heart rate Oxygen saturation Oxygen saturation in Arterial blood by Pulse oximetry Systolic And Diastolic Provider Name and Address Organization Details Last Updated DateTime 5 172.72 cm 36.6 kg/m2 975177. 76 g 97.4 [degF] 89 /min 98 % 98 % 120/60 mm[Hg] Diane Clarke MA [facility] [employer] [facility] 5 09:06:59 Date Recorded Body height Body temperature Heart rate Oxygen saturation Oxygen saturation in Arterial blood by Pulse oximetry Systolic And Diastolic Provider Name and Address Organization Details Last Updated DateTime 5 172.72 cm 97.2 [degF] 85 /min 97 % 97 % 116/93 mm[Hg] Bibiana Manzano [facility] [employer] 5 15:36:18 Date Recorded Body height Body mass index (BMI) Body weight Body temperature Heart rate Oxygen saturation Oxygen saturation in Arterial blood by Pulse oximetry Systolic And Diastolic Provider Name and Address Organization Details Last Updated DateTime 5 172.72 cm 35.5 kg/m2 207748. 82 g 97.7 [degF] 84 /min 98 % 98 % 110/62 mm[Hg] Diane Clarke MA [facility] [employer] 5 09:13:00 Date Recorded Body height Body temperature Heart rate Systolic And Diastolic Provider Name and Address Organization Details Last Updated DateTime 09/04/2024 175.26 cm 97.2 [degF] 78 /min 128/70 mm[Hg] BENNIE Saldivar [facility] [employer] [facility] 09/04/2024 11:56:36 Date Recorded Body height Body mass index (BMI) Body weight Body temperature Oxygen saturation Oxygen saturation in Arterial blood by Pulse oximetry Heart rate Systolic And Diastolic Provider Name and Address Organization Details Last Updated DateTime 4 172.72 cm 37.6 kg/m2 573147. 32 g 97.3 [degF] 96 % 96 % 85 /min 132/73 mm[Hg] Bibiana Manzano [facility] [employer] [facility] 4 14:13:00 Social History Question Answer Notes [...] Type Of Diet Are You Following? REGULAR [id number] Information not available 01/05/2023 What Is The Highest Grade Or Level Of School You Have Completed Or The Highest Degree You Have Received? [id number] Information not available 10/20/2023 Do You Have An Electrostatic Air Filter? No MIGRATION.[id number] [id number] Information not available 01/05/2023 Have There Been Any Changes To Your Family Or Social Situation? No Information no t available 04/16/2024 What Is The Fluoride Status Of Your Home? Unknown Information not available 10/20/2023 Are There Any Guns Present In Your Home? Yes MIGRATION.25329 [id number] Information not available 01/05/2023 Do You Have A Humidifier? Yes MIGRATION.90832 70725 Information not available 01/05/2023 Do You Use Insect Repellent Routinely? No Information not available 12/06/2024 Where Do You Live? [place] MIGRATION.70962 84899 Information not available 01/05/2023 Do You Have A Medical Power Of Corset Maker? Yes Information not available 10/20/2023 Do You Have Moisture Problems In Your Home? No MIGRATION.92194 90201 Information not available 01/05/2023 What Was The Date Of Your Most Recent Tobacco Screening? 04/16/2025 Information not available 04/16/2025 Do You Have Any Pets? Yes MIGRATION.69043 02751 Information not available 01/05/2023 What Is Your Relationship Status? Information not available 10/20/2023 Do You Use Your Seat Belt Or Car Seat Routinely? Yes Information not available 10/20/2023 Do You Have Smoke And Carbon Monoxide Detectors In Your Home? Yes MIGRATION.20423 15593 Information not available 01/05/2023 Are You Passively Exposed To Smoke? No MIGRATION.25007 47110 Information not available 01/05/2023 Are There Any Smokers In Your House? No Information not available 10/20/2023 Do You Use Sunscreen Routinely? No MIGRATION.35404 67068 Information not available 01/05/2023 Has Tobacco Cessation Counseling Been Provided? No N/a Information not available 10/20/2023 Have You Recently Traveled Abroad? No MIGRATION.47944 70964 Information not available 01/05/2023 Do You Have Difficulty Walking Or Climbing Stairs? Yes Information not available 10/20/2023 Do You Have Any Dietary Restrictions? No MIGRATION.56602 42750 Information not available 01/05/2023 Sex: Male Functional Status Question Answer Note LastModified by thinkingphonesat ion Details LastModified Time Do you use any illicit or recreational drugs? No Information not available 10/20/2023 Do you or have you ever used any other forms of tobacco or nicotine? No Information not available 10/20/2023 What is your level of alcohol consumption? None MIGRATION.57136 56995 Information not available 01/05/2023 Are you currently [...] anxious, or unable to sleep at night)? [id number] Information not available 10/20/2023 Do you have difficulty concentrating, remembering or making decisions? No Information no t available 10/20/2023 Family History Relationship Description Onset Age of this Age Resolved Age Notes LastModified by Organization Details LastModified Time Father Heart disease [id number].389 [id number] Not available 01/05/2023 12:45:59 Father Hypertensive disorder [id number].683 [id number] Not available 01/05/2023 12:45:59 Father Diabetes mellitus [id number].530 [id number] Not available 01/05/2023 12:45:59 Medical History Condition [...] SNOMED-CT Code Diagnosis ICD10 Code Diagnosis Note [id number] OSMAR Suarez [facility] [address] [address] 02/18/2021 00:00:00 02/18/2021 11:32:06 [id number] MD MARY KATE [facility] [address] [address] 06/19/2021 00:00:00 06/19/2021 14:55:34 [id number] MD MARY KATE [facility] [address] 11/17/2021 00:00:00 11/17/2021 15:32:34 [id number] MD MARY KATE [facility] [address] 01/12/2022 00:00:00 01/12/2022 10:01:46 [id number] Jorge Richard MD [facility] [address] [address] 2022 00:00:00 2022 14:19:26 [id number] MD FAMILIA ScottS[facility] [address] [address] 05/26/2022 00:00:00 05/26/2022 15:15:44 [id number] MD FAMILIA [facility] [address] [address] 08/10/2022 00:00:00 08/10/2022 10:20:52 [id number] Jorge Richard MD [facility] [address] [address] 09/08/2022 00:00:00 09/08/2022 09:38:15 [id number] MD FAMILIA Cardoza[facility] [address] [place] [address] 11/25/2022 00:00:00 11/25/2022 09:19:23 [id number] Jorge Richard MD [facility] [address] [place] [address] 12/17/2022 00:00:00 12/17/2022 10:08:24 [id number] Ray García MD [facility] [place] [address] [place] [address] 12/23/2022 00:00:00 12/23/2022 09:20:24 [id number] Ray García MD [facility] [address] [place] [address] 12/30/2022 00:00:00 12/30/2022 09:33:05 [id number] Jorge Richard MD [facility] [address] [place] [address] 03/25/2023 08:38:13 03/25/2023 09:26:01 Osteoarthritis of right knee joint 4616542190 59630 M17.11 [id number] Jorge Richard MD [facility] [address] [place] [address] 06/24/2023 08:44:09 06/24/2023 09:15:28 Osteoarthritis of right knee joint 0893489641 74814 M17.11 [id number] Nahed bryant MD [facility] Internal Med [address] [facility], [address] [place] [address] 10/20/2023 13:47:19 10/20/2023 15:03:58 Screening - NAD 682470900 Z13.9 C-scope: Get yearly flu shotGet TdapGet Shingrix vaccineGet PCV #20Get COVID 19 vaccineGet RSV vaccine RTC in 3 months, do labs ER if worse, he did verbalize his understand ing of the above Coronary arteriosclerosis 45382893 I25.10 On ASAOn dipyridamo le 75mg qidOn isosorbide ER 30mg dailyOn NTGOn sotalol 80mg bidOn torsemide 20mg dailyOn valsartan 160mg bidOn warfarin Sees Dr Wyman, INR to be done by [facility] 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 313854633 E11.9 On jardiance 10mg dailyOn metformin 1000mg dailyOn Ozempic 2mg weekly Get labs Hyperlipidemia 32048010 E78.5 Screening for malignant neoplasm of prostate 946632615 Z12.5 Vitamin D deficiency 347 18851 E55.9 Urinary incontinence 165 916144 R32 On finasterid e 5mg daily Gastroesop hageal reflux disease without esophagitis 263723960 K21.9 On pantoprazo le 40mg dailyGet EGD done Chronic pain 68954162 G8 9.29 Advised not to take any NSAIDs!Nee ds to see pain management , unable to provide any opiates or controlled substances Atrial fibrillation 4943 [address] I48[address] Wyman Obstructiv e sleep apnea syndrome 73213248 G47.33 Screening for malignant neoplasm of colon 996052664 Z12.11 [id number] Jorge Richard MD [facility] [address] [place] [address] 10/26/2023 08:26:07 10/26/2023 09:13:32 Osteoarthritis of right knee joint 5468403367 50282 M17.11 [id number] Nahed bryant MD [facility] [address] [facility], [facility] [address] [place] [address] 01/26/2024 08:52:47 01/26/2024 10:22:16 Screening - NAD 879078329 Z13.9 C-scope: Get this done Get yearly flu shotGet TdapGet Shingrix vaccineGet PCV #20Get COVID 19 vaccineGet RSV vaccine RTC in 3 months, do labs ER if worse, he did verbalize his understand ing of the above Coronary arteriosclerosis 19556796 I25.10 ECHO 01/05/2024 : In a fib On ASAOn dipyridamo le 75mg qidOn isosorbide ER 30mg dailyOn NTGOn sotalol 80mg bidOn torsemide 20mg dailyOn valsartan 160mg bidOn warfarin Sees Dr Wyman, INR to be done by [facility] 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 810437486 E11.9 On jardiance 10mg dailyNot on metformin 1000mg dailyNot on Ozempic 2mg weekly, stopped by Dr Wyman 01/12/2024 , d/t diarrhea Get labs Hyperlipidemia 41170444 E78.5 On atorvastat in 40mg dailyGet labs Vitamin D deficiency 347 17978 E55.9 Urinary incontinence 165 236339 R32 On finasterid e 5mg daily Gastroesop hageal reflux disease without esophagitis 489147742 K21.9 On pantoprazo le 40mg dailyGet EGD done Chronic pain 14942885 G8 9.29 Advised not to take any NSAIDs!Nee ds to see pain management , unable to provide any opiates or controlled substances OV 01/26/2024 :[facility] pain management 11/17/2023 His hydrocodon e was not prescribed , and this did coincide with his diarrhea, may be withdrawal ? Atrial fibrillation 4943 6004 I48.[address] Wyman Obstructiv e sleep apnea syndrome 76352287 G47.33 Dr Tyson 08/10/2022 Screening for malignant neoplasm of colon 388220904 Z12.11 Proteinuria 12287044 R80 .9 On [facility] eds to see nephrology Pain of le ft knee joint 3359202161 64545 M25.562 José Miguel PRASAD 01/25/2024 , s/p kenalog Diarrhea 16391464 R19.7 Has stopped the metformin, ozempicHis opiates were not renewed by pain management Also stop the iron tabsMay need to be on cholestyra mine or take lomotil as neededIf not better then see GI Adult heal th examination 791484394 Z00.00 Screening for disorder 104813474 Z13.9 [id number] Jorge Richard MD [facility] [address] [place] [address] 01/25/2024 08:59:32 01/25/2024 11:45:22 Osteoarthritis of left knee joint 0197424405 63836 M17.12 [id number] Nahed bryant MD [facility] [place] [address] [facility] , [place] [address] 04/16/2024 08:54:53 04/16/2024 09:30:32 Screening - NAD 338308750 Z13.9 C-scope: Get this done Get yearly flu shotGet TdapGet Shingrix vaccineGet PCV #20Get COVID 19 vaccineGet RSV vaccine RTC in 2 months, do labs ER if worse, he did verbalize his understand ing of the above Coronary arteriosclerosis 09741572 I25.10 ECHO 01/05/2024 : In a fib On ASAOn dipyridamo le 75mg qidOn isosorbide ER 30mg dailyOn NTGOn sotalol 80mg bidOn torsemide 20mg dailyOn valsartan 160mg bidOn warfarin Sees Dr Wyman, INR to be done by [facility] 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 457518667 E11.9 On jardiance 10mg dailyNot on metformin 1000mg dailyNot on Ozempic 2mg weekly, stopped by Dr Wyman 01/12/2024 , d/t diarrhea Get labs Hyperlipidemia 40572695 E78.5 On atorvastat in 40mg dailyGet labs Vitamin D deficiency 347 29703 E55.9 Urinary incontinence 165 621396 R32 On finasterid e 5mg daily Gastroesop hageal reflux disease without esophagitis 378932832 K21.9 On pantoprazo le 40mg dailyGet EGD done Chronic pain 92799257 G8 9.29 Advised not to take any NSAIDs!Nee ds to see pain management , unable to provide any opiates or controlled substances OV 01/26/2024 :[facility] pain management 11/17/2023 His hydrocodon e was not prescribed , and this did coincide with his diarrhea, may be withdrawal ? OV 04/16/2024 :Now see Dr Rahc aggrawal hydrocodon e as needed Atrial fibrillation 4943 6004 I48.[address] Wyman Obstructiv e sleep apnea syndrome 32728390 G47.33 Dr Tyson 08/10/2022 Screening for malignant neoplasm of colon 431392269 Z12.11 Proteinuria 20697967 R80 .9 On kerendiaNe eds to see nephrology Pain of le ft knee joint 0659489613 56489 M25.562 José Miguel PRASAD 01/25/2024 , s/p kenalog Diarrhea 28288758 R19.7 Has stopped the metformin, ozempicHis opiates were not renewed by pain management Also stop the iron tabsMay need to be on cholestyra mine or take lomotil as neededIf not better then see GI OV 04/16/2024 :On cholestyra minaShould see GI to determine the cause of the diarrhea Neuropathy 968777306 G62 .9 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 hyperemic lesion noted on the L scalp and R mid neck [id number] Nahed bryant MD [facility] [address] [facility], [facility] [address] [place] [address] 04/26/2024 08:23:58 04/26/2024 09:38:30 Screening - NAD 361421439 Z13.9 C-scope: Get this done Get yearly flu shotGet TdapGet Shingrix vaccineGet PCV #20Get COVID 19 vaccineGet RSV vaccine RTC in 2 months, do labs ER if worse, he did verbalize his understand ing of the above Coronary arteriosclerosis 48087292 I25.10 ECHO 01/05/2024 : In a fibUS carotid 02/02/2024 On ASAOn coregOn dipyridamo le 75mg qidOn isosorbide ER 30mg dailyOn NTGNot on sotalol 80mg bidOn torsemide 20mg dailyNot on valsartan 160mg bid, d/c 04/12/2024 On entresto 97-103mg bid Dr Wyman 04/12/[address] Wyman, INR to be done by [facility] 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 410064015 E11.9 On jardiance 10mg dailyNot on metformin 1000mg dailyNot on Ozempic 2mg weekly, stopped by Dr Wyman 01/12/2024 , d/t diarrhea Get labs Hyperlipidemia 52425056 E78.5 On atorvastat in 40mg dailyGet labs Vitamin D deficiency 347 76284 E55.9 Urinary incontinence 165 676238 R32 On finasterid e 5mg daily Gastroesop hageal reflux disease without esophagitis 135771110 K21.9 On pantoprazo le 40mg dailyGet EGD done, has seen Dr Spears Chronic pain 11487422 G8 9.29 Advised not to take any [...] Dr Wyman Obstructiv e sleep apnea syndrome 66535585 G47.33 Dr Tyson 08/10/2022 Proteinuria 74593032 R80 .[address] Nhan 03/27/2024 Pain of le ft knee joint 8357143933 02689 M25.562 José Miguel PRASAD 01/25/2024 , s/p kenalog Diarrhea 36929115 R19.7 Has stopped the metformin, ozempicHis opiates were not renewed by pain management Also stop the iron tabsMay need to be on cholestyra mine or take lomotil as neededIf not better then see GI OV 04/16/2024 :On cholestyra minaShould see GI to determine the cause of the diarrhea OV 04/26/2024 :Dr Spears 04/11/2024 , to get EGD and C-scope Neuropathy 961264053 G62 .9 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9 C-scope: Get this done Get yearly flu shotGet TdapGet Shingrix vaccineGet PCV #20Get COVID 19 vaccineGet RSV vaccine RTC in 3 months, do labs ER if worse, he did verbalize his understand ing of the above Coronary arteriosclerosis 10826009 I25.10 ECHO 01/05/2024 : In a fibUS carotid 02/02/2024 On ASAOn coreg 3.125mg bidOn dipyridamo le 75mg qidOn isosorbide ER 30mg dailyOn NTGNot on sotalol 80mg bidOn torsemide 20mg dailyNot on valsartan 160mg bid, d/c 04/12/2024 On entresto 97-103mg bid Dr Wyman 04/12/[address] Wyman, INR to be done by [facility] is now to get another procedure done by Dr Wyman as per his history 06/05/2024 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 202287581 E11.9 On jardiance 10mg dailyNot on metformin 1000mg dailyBack on Ozempic 2mg weekly as he feels that his diarrhea has improved, advised to stop if getting any procedure 06/05/2024 Get labs Hyperlipidemia 38619015 E78.5 On atorvastat in 40mg dailyGet labs Vitamin D deficiency 347 71349 E55.9 Urinary incontinence 165 096891 R32 On finasterid e 5mg dailyOn flomax renewed 06/05/2024 Gastroesop hageal reflux disease without esophagitis 322227984 K21.9 On pantoprazo le 40mg dailyGet EGD done, has seen Dr Spears Chronic pain 27003497 G8 9.29 Advised not to take any [...] Dr Wyman Obstructiv e sleep apnea syndrome 94088795 G47.33 Dr Tyson 08/10/2022 Proteinuria 43173676 R80 .9 Not on kerendiaDr Ruiz 03/27/2024 Pain of le ft knee joint 0919209468 00113 M25.562 José Miguel Mcduffie PA 01/25/2024 , s/p kenalog Diarrhea 54968084 R19.7 Has stopped the metformin, ozempicHis opiates [...] 06/05/2024 : Get EGD and C-scope Neuropathy 930052779 G62 .9 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 hyperemic lesion noted on the L scalp and R mid neck [id number] Nahed bryant MD [facility] Internal Med [address] [facility] [address] [place] [address] 09/04/2024 11:32:25 09/04/2024 12:23:42 Screening - NAD 469093491 Z13.9 C-scope: Get this done Get yearly flu shotGet TdapGet Shingrix vaccineGet PCV #20Get COVID 19 vaccineGet RSV vaccine RTC in 3 months, do labs ER if worse, he did verbalize his understand ing of the above Coronary arteriosclerosis 82161410 I25.10 ECHO 01/05/2024 : In a fibUS [...] 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 257312526 E11.9 On jardiance 10mg dailyNot on metformin 1000mg dailyBack on Ozempic 2mg weekly as he feels that his diarrhea has improved, advised to stop if getting any procedure 06/05/2024 Get labs Hyperlipidemia 47944920 E78.5 On atorvastat in 40mg dailyGet labs Vitamin D deficiency 347 60052 E55.9 Urinary incontinence 165 529450 R32 On finasterid e 5mg dailyOn flomax renewed 06/05/[address] Mares 09/04/2024 Gastroesop hageal reflux disease without esophagitis 954154281 K21.9 On pantoprazo le 40mg dailyGet EGD done, has seen Dr Spears Chronic pain 43615027 G8 9.29 Advised not to take any [...] Dr Wyman Obstructiv e sleep apnea syndrome 08443552 G47.33 Dr Tyson 08/10/2022 Proteinuria 46974610 R80 .9 On kerendiaLo w protein, more protein in diet and see nephrology Dr Ruiz 03/27/2024 Pain of le ft knee joint 8507824078 58479 M25.562 José Miguel Reta PRASAD 01/25/2024 , s/p kenalog Diarrhea 79814043 R19.7 Has stopped the metformin, ozempicHis opiates [...] : To get EGD and C-scope Neuropathy 703716135 G62 .9 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 hyperemic lesion noted on the L scalp and R mid neck Erectile dysfunction 860 338327 F52.21 On sildenafil Does well [id number] Rafael Mares MD [facility] [place] [address] [facility] [address] [place] [address] 09/12/2024 13:53:44 09/12/2024 15:13:23 Urinary incontinence 659645532 R32 Benign pro static hyperplasia with outflow obstruction 327099984 N40.1 [id number] Nahed bryant MD [facility] Internal [facility] [address] [facility] [place] [address] 12/06/2024 09:01:34 12/06/2024 09:45:25 Screening - NAD 044830947 Z13.9 C-scope: As per Dr Spears, EGD/C-scop e: 08/17/2024 Get yearly flu shotGet TdapGet Shingrix vaccineGet PCV #20Get COVID 19 vaccineGet RSV vaccine RTC in 3 months, do labs ER if worse, he did verbalize his understand ing of the above Coronary arteriosclerosis 04307640 I25.10 ECHO 01/05/2024 : In a fibUS [...] 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 746842707 E11.9 On jardiance 10mg dailyNot on metformin 1000mg dailyBack on Ozempic 2mg weekly as he feels that his diarrhea has improved, advised to stop if getting any procedure 06/05/2024 Get labs Hyperlipidemia 55256205 E78.5 On atorvastat in 40mg dailyGet labs Vitamin D deficiency 347 30146 E55.9 Urinary incontinence 165 391009 R32 On finasterid e 5mg dailyOn flomax renewed 06/05/2024 Dr Mares 09/12/2024 Gastroesop hageal reflux disease without esophagitis 547375133 K21.9 On pantoprazo le 40mg dailyGet EGD done, has seen Dr Spears Chronic pain 32121767 G8 9.29 Advised not to take any [...] Dr Wyman Obstructiv e sleep apnea syndrome 67567416 G47.33 Dr Tyson 08/10/2022 Proteinuria 30816914 R80 .9 On kerendiaLo w protein, more protein in diet and see nephrology Dr Ruiz 03/27/2024 Pain of le ft knee joint 9273983015 02698 M25.562 José Miguel Reta PA 01/25/2024 , s/p kenalog Diarrhea 62588968 R19.7 Has stopped the metformin, ozempicHis opiates [...] 12/06/2024 : Dr Spears 11/16/2024 OV Neuropathy 123341017 G62 .9 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) Pruritic rash 50501367 L 28.2 Has noted a rash underneath the abdominal fold, none today, but has used clot-betam ethasone in the past with good reliefRene w the clotrimazo le-betamet hasone cream as needed Lesion of skin of face 7532790703 06 L98.9 [place] noted on the L scalp and R mid neck Erectile dysfunction 860 590782 F52.21 On sildenafil Does well Paratrache al lymphadenopathy 44280702 R59.0 Dr Ruiz 11/01/2024 : f/u in [address] scan [id number] Rafael Mares MD [facility] [place] [address] [address] 12/14/2024 15:01:37 12/14/2024 16:00:20 Urinary incontinence 871257446 R32 Benign pro static hyperplasia with outflow obstruction 434318359 N40.1 [id number] Nahed bryant MD [facility] Internal [facility] [address] [facility], [address] [place] [address] 04/16/2025 09:05:19 04/16/2025 09:43:53 Screening - NAD 057177154 Z13.9 C-scope: As per Dr Spears, EGD/C-scop e: 08/17/2024 Get yearly flu shotGet TdapGet Shingrix vaccineGet PCV #20Get COVID 19 vaccineGet RSV vaccine RTC in 3 months, do labs ER if worse, he did verbalize his understand ing of the above Coronary arteriosclerosis 62751774 I25.10 ECHO 01/05/2024 : In a fibUS carotid 02/02/2024 HC 08/21/2024 : [facility] Dr Jenkins Not on coreg 3.125mg bidNot on isosorbide ER 30mg dailyNot on sotalol 80mg bidNot on valsartan 160mg bid, d/c 04/12/2024 On ASAOn dipyridamo le 75mg qidOn NTGOn torsemide 20mg dailyOn entresto 97-103mg bid given by Jonah Momin 03/25/[address] Wyman last OV 08/09/2024 , referred Dr Kathleen Wyman 09/27/2024 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 141924505 E11.9 On jardiance 10mg dailyNot on metformin 1000mg dailyOn Ozempic 2mg weekly as he feels that his diarrhea has improved, advised to stop if getting any procedure 06/05/2024 Get labs Hyperlipidemia 46378852 E78.5 On atorvastat in 40mg dailyGet labs Vitamin D deficiency 347 20560 E55.9 Urinary incontinence 165 017922 R32 On finasterid e 5mg dailyOn flomax renewed 06/05/2024 Dr Mares 09/12/2024 Gastroesop hageal reflux disease without esophagitis 047328073 K21.9 On pantoprazo le 40mg dailyGet EGD done, has seen Dr Spears Chronic pain 40787975 G8 9.29 Advised not to take any [...] hydrocodon Bonnie gabapentin Sees Dr Watters OV : Sees pain management Atrial fibrillation [address] 05/22/[address] Wyman Obstructiv e sleep apnea syndrome 54225956 G47.33 Dr Tyson 08/10/2022 Proteinuria 52347477 R80 .9 On kerendiaLo w protein, more protein in diet and see nephrology Dr Ruiz 03/27/2024 Pain of le ft knee joint 4883152231 03594 M25.562 José Miguel Mcduffie PA 01/25/2024 , s/p kenalog Diarrhea 94075784 R19.7 Has stopped the metformin, ozempicHis opiates [...] 12/06/2024 : Dr Spears 11/16/2024 OV Neuropathy 521127614 G62 .9 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) Pruritic rash 77633487 L 28.2 Has noted a rash underneath the abdominal fold, none today, but has used clot-betam ethasone in the past with good reliefRene w the clotrimazo le-betamet hasone cream as needed Lesion of skin of face 6072501289 06 L98.9 Se[place] dermatolog ist [place] hype[place] lesion noted on the L scalp and R mid neck Erectile dysfunction 860 644196 F52.21 On sildenafil Does well Paratrache al lymphadenopathy 31134791 R59.0 Dr Ruiz 11/01/2024 : f/u in [address] scanDr Joseph 02/08/2025 : Repeat the CT in 3 months Health Concerns Section Related Observation LastModified by Organization Detai ls LastModified Time None Recorded Concern Status LastModified by Organization Details LastModified Time None Recorded Advance Directives Directive N: Payers Insurance Date Sequence Insurance Name Policy Number Policy Umana Covered Member ID Umana Member ID Guarantor Name 04/16/2025 1 [place] Mannie L Roque [id number] Mannie L Cabello 05/13/2025 2 [place] [id number] Mannie Cabello [id number] Mannie Britt Roque Notes Date Note Type Note Provider Name and Address Organization Details Recorded Time 09/04/2024 text/html OV 10/20/2023:He re to establish [...] feels well today Nahed Patterson MD [address], [address], [place], [address], [facility] [employer] [facility] 09/06/2024 18:53:52 09/12/2024 text/html this patient is [...] throughout the day Rafael Mares MD [address], [address], [place], [address], [facility] [employer] [facility] 09/12/2024 16:16:03 12/06/2024 text/html OV 10/20/2023:He re [...] Patterson MD [address], [place], [address], [employer] 12/06/2024 12:26:32 12/14/2024 text/html this patient has [...] taking it Rafael Mares MD [address], [place], [address], [employer] [facility] [employer] 12/14/2024 16:12:44 04/16/2025 text/html OV 10/20/2023:He re to establish care [...] neuropathy, but he does take the gabapentin 04/16/2025: Here for his f/u apt, he feels well today Nahed Patterson MD [address] [facility], [facility] [address], [place], [address], [facility] 05/10/2025 13:33:35
--- OUTSIDE RECORDS SUMMARY | 2025-05-24 06:50 | XMS_ITS ---
Author Organization [facility] est[facility] Office Address [address] [place] [address] [place] [address] Care Team Providers Care Cable Splicer Helper Name Role Phone Justin Gigi Unavailable [phone] Social History Sex Assigned At : Social History Observation Description Sex Assigned At Male Encounters Encounter Location Date Provider Diagnosis [place] [facility] [address] [facility] 15 [place] [address] 12/26/2024 Gigi Justin Plan Of Treatment Next Appt Details Provider Name:Gigi Justin , 06/12/2025 02:30:00 PM, [address] [facility] 15, [place], [address], Progress Notes * MANNIE CABELLODOB:1950 ( 75 yo F)Acc No.[id number]:12/26/2024 Progress Notes Patient: MANNIE APARICIO Provider: Nayeli MAE MD, Brandon.Jose.C.P, F.A.S.N. :1950 A ge:74 Y S ex:Female Date:12/26/2024 Address:[address] [place], [place] [address] [address], [place] [address] Subjective: * Chief Complaints: * * Medical History: Objective: * Vitals: Assessment: Plan: * Treatment: * Billing Information: * Visit Code: * Procedure Codes: * Electronic signature of Fox Justin MD on 05/24/2025 at 06:49 AM CDT Sign off status: Pending * Provider: Nayeli MAE MD, Brandon.Jose.C.P, F.A.S.N. Date: 12/26/2024 Generated for Printing/Faxing/eTransmitting on: 05/24/2025 06:49 AM CDT
[2025-05-24 07:56] LABS: Anion Gap 8 mmol/L (4-12); Blood Urea Nitrogen 29 mg/dL (9-20); Calcium 9.5 mg/dL (8.4-10.2); Carbon Dioxide 25 mmol/L (22-30); Chloride 106 mmol/L (98-107); Estimated Glomerular Filt Rate > 60; Glucose 154 mg/dL (65-110); Potassium 4.0 mmol/L (3.4-5.0); Sodium 139 mmol/L (137-145)
== END 2025-05-24 06:45 | disposition home or self-care (01) ==
LOC: ANHLAB 06:46
PROVIDERS: PCP Internal Medicine; Visit Provider Internal Medicine
DX: I48.20 Chronic atrial fibrillation, unspecified (principal); I25.10 Atherosclerotic heart disease of native coronary artery without angina pectoris
CPT/HCPCS: 36415; 80048

== ENCOUNTER 2025-08-06 14:53 | Emergency (ER) | payer MEDICARE, SELFPAY ==
--- OUTSIDE RECORDS SUMMARY | 2010-01-08 03:00 | XMS_ITS | Continuity of Care Document ---
Author Organization [facility] [place] Address [address] [place] [address] [place] [address] Phone Care Team Providers Care Controls Designer Name Role Phone Hoa Gonzalez Unavailable Unavailable Procedures Procedure Date Eye Exam & Treatment Refraction Eye Exam & Treatment Eye Exam & Treatment Refraction Advance Directives Directive Yes / No Effective Date File Name No Information Encounters Encounter Description Practice Location Reason(s) For Visit Diagnoses Date Provider Providers Copied on Encounter [facility], [address] [place] [address] [address], [place], [place], [id number], tel:[phone] SEC [facility] No Information Jan- 4-201 0 Lisa Solitario [address], [place], [place], [facility] [place], [place]. tel:[phone] [facility], [address] [place] [address] [address], [place], [place], [id number], [place] tel:[phone] SEC [facility] No Information 9-200 9 Lisa Solitario [address], [place], [place], [facility], [facility] [place], [place]. tel:[phone] [facility], [address] [place] [address] [address], [place], [place], [id number], tel:[phone] SEC [facility] No Information 7200 7 Lisa Camara. [address] , [address], [place], [address], [place]. tel:[phone] Family History Family Member Type Diagnosis Age At Onset No Information Payers Payer name Insurance type Covered green party ID Authorheidy guerrero(s) [facility] Out Of State [id number] Social History Type Description Quantity Date Captured Comments Sex Male Smoking Status No Information Chief Complaint And Reason For Visit No Information Reason For Referral Reason For Referral No Information History Of Present Illness Encounter Date Complaint History Of Prese nt Illness No Information Functional Status Date Functional Assessmen t No Information Instructions Date Instruction Additional Infor mation No Information Assessments Type Assessment Date No Information Patient Care Teams Name Effective Dates (start - stop) Status Members No Information
--- OUTSIDE RECORDS SUMMARY | 2010-01-08 03:00 | XMS_ITS | Continuity of Care Document ---
Author Organization [facility] [place] Address [address] [place] [address] [place] [address] Phone Care Team Providers Care Inspector Materials And Processes Name Role Phone Hoa Gonzalez Unavailable Unavailable Procedures Procedure Date Eye Exam & Treatment Refraction Eye Exam & Treatment Eye Exam & Treatment Refraction Advance Directives Directive Yes / No Effective Date File Name No Information Encounters Encounter Description Practice Location Reason(s) For Visit Diagnoses Date Provider Providers Copied on Encounter [facility], [address] [place] [address] [address], [place], [place], [id number], tel:[phone] SEC [facility] No Information Jan- 4-201 [address], [place], [place], [facility], [place]. tel:[phone] [facility], [address] [place] [address] [address], [place], [place], [id number], [place] tel:[phone] SEC [facility] No Information 9-[address], [place], [place], [facility], [place]. tel:[phone] [facility], [address] [place] [address] [address], [place], [place], [id number], tel:[phone] SEC [facility] No Information 7200 7 Lisa Camara. [address] , [address], [place], [address], [place]. tel:[phone] Family History Family Member Type Diagnosis Age At Onset No Information Payers Payer name Insurance type Covered constitution party ID Authorheidy guerrero(s) [facility] Out Of State [id number] Social History Type Description Quantity Date Captured [...]
--- OUTSIDE RECORDS SUMMARY | 2024-12-12 10:30 | XMS_ITS ---
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) Active confirmed Problem Hyperlipidemia (02858886) Hyperlipidemia, unspecified (E78.5) Active confirmed Problem Coronary artery disease (89932271) CAD (coronary artery disease) (I25.10) Active confirmed Problem Benign prostatic hypertrophy without outflow obstruction (344254542) Benign prostatic hyperplasia without lower urinary tract symptoms (N40.0) Active confirmed Encounters Encounter Location Date Provider Diagnosis [place] [facility] 2043 [facility] [address] [place] [address] 12/12/2024 Gigi Justin Chronic kidney disease, stage [...] symptoms (ICD-10 - N40.0) Plan Of Treatment Next Appt Details Provider Name:Gigi Justin , 09/11/2025 02:15:00 PM, [address], [address], [place], [address], Progress Notes * MANNIE CABELLODOB:1950 ( 75 yo F)Acc No.[id number]:12/12/2024 Progress Notes Patient: MANNIE APARICIO Provider: Nayeli MAE MD, F.A.C.P, F.A.S.N. :1950 A ge:74 Y S ex:Female Date:12/12/2024 Address:[address] [place] [address] [address], [place], [place] Subjective: * Chief Complaints: * * Medical [...] Treatment: * Billing Information: * Visit Code: 27595 Office Visit, New Pt., Level 5. * Procedure Codes: * Electronic signature of Fox Justin MD on 08/06/2025 at 03:01 PM CDT Sign off status: Pending * Provider: Nayeli MAE MD, F.Jose.C.P, F.A.S.N. Date: 0 12/12/2024 Generated for Printing/Faxing/eTransmitting on: 0 08/06/2025 03:01 PM CDT
--- OUTSIDE RECORDS SUMMARY | 2024-12-26 11:00 | XMS_ITS ---
Author Organization [facility] Address [address] [place] [address] Care Team Providers Care Hides Inspector Name Role Phone Nhan Gigi Unavailable [phone] Social History Sex Assigned At : Social History Observation Description Sex Assigned At Male Encounters Encounter Location Date Provider Diagnosis [place] [facility] 2043 [facility] 15 [place] [address] 12/26/2024 Gigi Justin Plan Of Treatment Next Appt Details Provider Name:Gigi Justin , 09/11/2025 02:15:00 PM, 2043 [facility], [facility] 15, [place], [address], Progress Notes * MANNIE CABELLODOB:1950 ( 75 yo F)Acc No.[id number]:12/26/2024 Progress Notes Patient: MANNIE APARICIO Provider: Nayeli MAE MD, F.Jose.C.P, F.A.S.N. :1950 A ge:74 Y S ex:Female Date:12/26/2024 Address:[address] [place], [place] [address] [address], [place] [address] Subjective: * Chief Complaints: * * Medical History: Objective: * Vitals: Assessment: Plan: * Treatment: * Billing Information: * Visit Code: * Procedure Codes: * Electronic signature of Fox Justin MD on 08/06/2025 at 03:02 PM CDT Sign off status: Pending * Provider: Nayeli MAE MD, Brandon.Jose.C.P, F.A.S.N. Date: 12/26/2024 Generated for Printing/Faxing/eTransmitting on: 08/06/2025 03:02 PM CDT
--- OUTSIDE RECORDS SUMMARY | 2025-01-02 11:00 | XMS_ITS ---
Author Organization [facility] Address [address] [place] [address] [address] Care Team Providers Care Microfilm Operator Name Role Phone Nhan Gigi Unavailable [phone] Social History Sex Assigned At : Social History Observation Description Sex Assigned At Male Problems Problem Type SNOMED Code ICD Code Onset Dates Problem Status W/U Status Risk Notes Problem Chronic kidney disease stage 2 (103267881) Chronic kidney disease, stage 2 (mild) (N18.2) Active confirmed Encounters Encounter Location Date Provider Diagnosis [place] [facility] [address] [facility] [address] [place] [address] 01/02/2025 Gigi Justin Chronic kidney disea se, [...] Plan Of Treatment Next Appt Details Provider Name:Gigidorothy Justin , 09/11/2025 02:15:00 PM, [address] [place], [facility] [address], [place], [address], Progress Notes * MANNIE CABELLODOB:1950 ( 75 yo F)Acc No.[id number]:01/02/2025 Progress Notes Patient: MANNIE APARICIO Provider: Nayeli MAE MD, F.A.C.P, F.A.S.N. :1950 A ge:74 Y S ex:Female Date:01/02/2025 Address:[address] [place] [address], [place] [address] Subjective: * Chief Complaints: * * Medical [...] Treatment: * Billing Information: * Visit Code: 80584 Office Visit, Est Pt., Level 4. * Procedure Codes: * Electronic signature of Fox Justin MD on 08/06/2025 at 03:01 PM CDT Sign off status: Pending * Provider: Nayeli MAE MD, Brandon.Jose.C.P, F.A.S.N. Date: 0 01/02/2025 Generated for Printing/Faxing/eTransmitting on: 0 08/06/2025 03:01 PM CDT
--- OUTSIDE RECORDS SUMMARY | 2025-02-13 11:15 | XMS_ITS ---
Author Organization [facility] Address [address] [facility] [address] [place] [address] Care Team Providers Care Enterprise Account Executive Name Role Phone Gigi Justin Unavailable [phone] Social History Sex Assigned At : Social History Observation Description Sex Assigned At Male Problems Problem Type SNOMED Code ICD Code Onset Dates Problem Status W/U Status Risk Notes Problem Glycosuria (82558178) Glycosuria (R81) Active confirmed Problem Chronic pain (90164683) Other chronic pain (G89.29) Active confirmed Problem Aortic valve disorder (9467254) Nonrheumatic aortic (valve) stenosis (I35.0) Active confirmed Encounters Encounter Location Date Provider Diagnosis [place] Office [address] [facility] [address] [place] [address] 02/13/2025 Gigi Justin Chronic kidney disea se, [...] stenosis (ICD-10 - I35.0) Plan Of Treatment Next Appt Details Provider Name:Gigi Nhan , 09/11/2025 02:15:00 PM, [address] [address], [place], [place], [facility], Progress Notes * MANNIE CABELLODOB:1950 ( 75 yo F)Acc No.[id number]:02/13/2025 Progress Notes Patient: MANNIE APARICIO Provider: Nayeli MAE MD, F.A.C.P, F.A.S.N. :1950 A ge:75 Y S ex:Female Date:02/13/2025 Address:[address] [place] [address] Subjective: * Chief Complaints: * * Medical [...] Treatment: * Billing Information: * Visit Code: 49792 Office Visit, Est Pt., Level 4. * Procedure Codes: * Electronic signature of Fox Justin MD on 08/06/2025 at 03:02 PM CDT Sign off status: Pending * Provider: Nayeli MAE MD, F.A.C.P, F.A.S.N. Date: 0 02/13/2025 Generated for Printing/Faxing/eTransmitting on: 08/06/2025 03:02 PM CDT
--- OUTSIDE RECORDS SUMMARY | 2025-06-12 09:30 | XMS_ITS ---
Author Organization [facility] Office Address [address] [facility] [address] [place] [address] Care Team Providers Care Manager Sas Name Role Phone Gigi Justin Unavailable [phone] Social History Sex Assigned At : Social History Observation Description Sex Assigned At Male Problems Problem Type SNOMED Code ICD Code Onset Dates Problem Status W/U Status Risk Notes Problem Sick sinus syndrome (08962344) Sick sinus syndrome (I49.5) Active confirmed Encounters Encounter Location Date Provider Diagnosis [place] [facility] [address] [facility] [address] [place] [address] 06/12/2025 Gigi Justin Chronic kidney disea se, [...] syndrome (ICD-10 - I49.5) Plan Of Treatment Next Appt Details Provider Name:Gigi Nhan , 09/11/2025 02:15:00 PM, [address] [place] [address], [place], [place], [facility], Progress Notes * MANNIE CABELLODOB:1950 ( 75 yo F)Acc No.[id number]:06/12/2025 Progress Notes Patient: MANNIE APARICIO Provider: Nayeli MAE MD, F.A.C.P, F.A.S.N. :1950 A ge:75 Y S ex:Female Date:06/12/2025 Address:[address] [place] [address] Subjective: * Chief Complaints: * * Medical [...] Treatment: * Billing Information: * Visit Code: 49537 Office Visit, Est Pt., Level 4. * Procedure Codes: * Electronic signature of Fox Justin MD on 08/06/2025 at 03:01 PM CDT Sign off status: Pending * Provider: Nyaeli MAE MD, F.A.C.P, F.A.S.N. Date: 0 06/12/2025 Generated for Printing/Faxing/eTransmitting on: 08/06/2025 03:01 PM CDT
[2025-08-06] VITALS (27 sets, daily range): BP systolic 98–128; BP diastolic 63–107; PULSE 82–89; RESP 11–23; TEMP 36.9; O2SAT 90–99
--- NOTE | ~2025-08-06 | XR_ITS ---
EXAMINATION: XR chest 2V 08/06/2025 15:21 INDICATION: Chest pain. History of [place] and pacemaker TECHNIQUE:Frontal and lateral images of the chest were obtained. COMPARISON: 10/25/2022 FINDINGS: Cardiac mediastinal silhouette is enlarged, unchanged. Median sternotomy wires are present. Left-sided generator with 2 leads. No pneumothorax. No pleural effusion. No free air under the diaphragm. Small opacities in the mid and lower lungs. IMPRESSION: 1: Small opacities in the mid and lower lungs which represents atelectasis/scarring or infiltrates. If symptoms persist or worsen, consider a short-term follow-up study or additional imaging for further assessment. Reviewed, dictated and finalized at location Q. IMPRESSION: 1: Small opacities in the mid and lower lungs which represents atelectasis/sca rring or infiltrates. If symptoms persist or worsen, consider a short-term follow-up study or additio nal imaging for further assessment.
--- NOTE | 2025-08-06 14:54 | ECG_ITS ---
Test Date: 2025-08-06 14:58:35 Measurements Intervals [place] Rate: 84 P: 0 IL: 0 QRS: 60 QRSD: 176 T: 211 QT: 415 QTc: 493 Interpretive Statements ELECTRONIC VENTRICULAR PACEMAKER ABNORMAL RHYTHM ECG No previous ECG available for comparison Electronically Signed On 08-06-2025 16:57:28 CDT by Gisell Avilez M.D.
--- OUTSIDE RECORDS SUMMARY | 2025-08-06 15:01 | XMS_ITS | Clinical Summary ---
Author Organization [facility] [place] Address [address] [place] [address] Care Team Providers Care Orthodontist Name Role Phone Tiana Patterson MD Primary [...] Encounters Date Type Department Care Team Description 07/16/2025 External Device Data STL ABSTRACTION Provider, Abstract 07/09/2025 External Device Data [facility] ABSTRACTION Provider, Abstract 06/25/2025 External Device Data [place] ABSTRACTION Provider, Abstract 06/18/2025 External Device Data [place] ABSTRACTION Provider, Abstract 05/22/2025 External Device Data [place] ABSTRACTION Provider, Abstract 05/21/2025 External Device Data ST[place] ABSTRACTION Provider, Abstract 05/14/2025 11:45 AM CDT Office Visit [facility] Oncology and Hematology [facility] [address] [place] [address] Tommy Ruiz MD Lymphadenopathy (Primary Dx) 05/08/2025 Orders Only [facility] Oncology and Hematology - [place] [address] [place] [address] Tommy Ruiz MD 05/07/2025 External Device Data STL ABSTRACTION Provider, Abstract 05/06/2025 Orders Only [facility] Oncology and Hematology [place] [address] [place] [address] Tommy Ruiz MD from Last 3 Months [...] on file Legal Sex Male 3:06 PM STEEP TENDER Gender Identity Not on file Sexual [...] cm (5' 10) 11/01/2024 11: 29 AM STEEP TENDER Body Mass Index 33.78 11/01/2024 11:29 AM STEEP TENDER Plan of Treatment Upcoming Encounters Date Type Department Care Team (Late st Contact Info) Description 11/22/2025 9:15 AM STEEP TENDER Office Visit [facility] Oncology and Hematology - [place] [address] [facility] [address] [place] [address] Tommy Ruiz MD [address] [facility] [address] [place] [address] Health Maintenance Due Date Last Done Comments DIABETES ANNUAL FOOT EXAM 01/30/1968 DIABETES MICROALBUMIN ANNUAL SCREEN 01/30/1968 LDL CHOLESTEROL ANNUAL 01/30/1968 DTAP/TDAP/TD VACCINES (1 - Tdap) 1969 PNEUMOCOCCAL VACCINE 50+ YEA RS (1 of 2 - PCV) 1969 FIT-DNA Q 3 years 1995 FIT/FOBT Q 1 year 1995 Flex Sig/CT Colonography Q 5 years 1995 ZOSTER VACCINE (1 of 2) 01/30/2000 RSV VACCINE (60+ or ) (1 - 1-dose 75+ series) 2025 DIABETES ANNUAL RETINAL EXAM 04/24/2025, 04/08/2023, 07/15/2021, Additional history exists INFLUENZA VACCINE (#1) 2025 DIABETES HBA1C Q 6 MONTHS 10/09/20252024, 12/24/2024, 08/31/2024, Additional history exists COLORECTAL SCREENING 08/17/2034 08/17/2024, 08/17/2024, 08/17/2024, Additional history exists Colorectal Cancer Screening 08/17/2034 Procedures Procedure Name [...] Months Insurance MEDICARE PART A AND B [facility] SUPP Care Teams Orthodontist Relationship Specialty Start Date End Date Tiana Patterson MD [address] [place] [address] PCP - General Internal Medicine 11/02/24
--- OUTSIDE RECORDS SUMMARY | 2025-08-06 15:02 | XMS_ITS | Clinical Summary ---
Author Organization [facility] Address [address] [facility] [address] [place] [address] Care Team Providers Care Clinical Data Analyst Name Role Phone Bennie Nova MD Primary Care Provider Alison jeroniom Source Comments [facility],non-owned Affiliates and Associated Physician Practices is amultiple site organization consisting of ambulatory clinics and hospital sitesin [place], [place], [place] and [place]. This disclosure is being madepursuant to the Care Everywhere program and may not contain all information available regarding this patient. 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 EXERCISE INSTRUCTOR Gender Identity Not on file Sexual Orientation Not on file Last Filed Vital Signs Vital Sign Reading Time Taken Comments Blood Pressure 182/85 10/09/2012 3:10 PM EXERCISE INSTRUCTOR Pulse 70 10/09/2012 3:10 PM EXERCISE INSTRUCTOR Temperature 36.7 C (98.1 F) 12/29/2010 11:35 AM EXERCISE INSTRUCTOR Respiratory Rate 16 12/29/2010 11:35 AM EXERCISE INSTRUCTOR Oxygen Saturation - - Inhaled Oxygen Concentration - - Weight 173.3 kg (382 lb) 10/09/2012 3:10 PM EXERCISE INSTRUCTOR Height 177.8 cm (5' 10) 10/09/2012 3:10 PM EXERCISE INSTRUCTOR Body Mass Index 54.81 10/09/2012 3:10 PM EXERCISE INSTRUCTOR Plan of Treatment Health Maintenance Due Date [...] 01/30/2000 ZOSTER VACCINE (1 of 2) 01/30/2000 DEPRESSION SCREENING 11/07/2024 Respiratory Syncytial Virus (RSV) Vaccine Pt: or over 60 yrs (1 - 1-dose 75+ series) 2025 COVID-19 VACCINE (1 - 2023-2 5 season) 2025 INFLUENZA VACCINE (#1) 2025 HEPATITIS B [...] patient's age to complete this topic Insurance [facility] MEDICARE [facility] BLUE [facility] ANTHEM ANTHEM MEDICARE Care Teams Clinical Data Analyst Relationship Specialty Start Date End Date Bennie Nova MD PCP - General Internal Medicine 10/10/12
--- OUTSIDE RECORDS SUMMARY | 2025-08-06 15:02 | XMS_ITS | Clinical Summary ---
Author Organization [facility] Address [address] [place] [address] Care Team Providers Care Dental Laboratory Technology Teacher Name Role Phone Fabian Patterson MD Primary Care Provide r Allergies No known active allergies Medications empagliflozin (Jardiance) 10 mg tablet daily Active famotidine (Pepcid) 20 mg tablet TAKE 1 TABLET AT BEDTIME. Active pantoprazole DR (PROTONIX) 20 mg EC tablet 2 times daily 6 Active traMADoL (ULTRAM) 50 mg tablet TAKE 1 TABLET EVERY 4 TO 6 HOURS NEEDED FOR PAIN. Active vitamin B complex capsule Take 1 [...] 5 Active furosemide (LASIX) 20 mg tablet TAKE 1 TABLET BY MOUTH EVERY DAY 90 tablet 2 5 Active warfarin (Coumadin) 7.5 mg tablet Take 1 tablet (7.5 mg total) by mouth once a week 12 tablet 5 Active Active Problems Problem Noted Date Diagnosed [...] Encounters Date Type Department Care Team Description 07/10/2025 Orders Only [facility] Health Information Management [address] [place] [address] Scanning, Provider 07/10/2025 Anticoagulation Visit [facility] Cardiology [address] [place] [address] [place] [phone] Hilda Robledo, RN 06/03/2025 Anticoagulation Visit [place] [address] [place] [phone] Hilda Robledo, RN 06/02/2025 Orders Only [facility] Health Information Management [address] [place] [address] Scanning, Provider 05/24/2025 8:15 AM CDT Ancillary Procedure [facility] Cardiology [address] [place] [address] [place] [phone] Severe mitral regurgitation; H/O mechanical aortic valve replacement 05/24/2025 Orders Only [facility] Health Information Management [address] [place] [id number] Scanning, Provider 05/24/2025 Results Follow-Up [place] [address] [place] [phone] Lou White, RN Transthoracic Echo (TTE) Complete W Doppler/CF 05/20/2025 Telephone [facility] Cardiology [address] [place] [address] [place] [phone] Yvon Momin MD 05/09/2025 Anticoagulation Visit [facility] Cardiology [address] [place] [address] [place] [phone] Hilda Robledo, RN 05/07/2025 10:30 AM CDT Ancillary Procedure [facility] Cardiology [address] [facility] [address] [place] [phone] Cardiac pacemaker in situ; Chronic atrial fibrillation, unspecified (HCC); SSS (sick sinus syndrome) (HCC) 05/07/2025 10:30 AM CDT Office Visit [facility] Cardiology [address] [place] [address] Yvon Momin MD Chronic atrial fibrillation, unspecified (HCC) (Primary Dx); Cardiac pacemaker in situ; Chronic coronary artery disease; Severe mitral regurgitation; H/O mechanical aortic valve replacement 05/07/2025 Telephone [facility] Cardiology [address] [place] [address] Yvon Momin MD from Last 3 Months Surgical [...] Medical History Medical History Date Comments Diabetes Neuropathy Heart disease Arthritis H/O aortic valve replacement Mitral valve regurgitation Colon polyp Atrial fibrillation (HCC) Hypertension Hyperlipidemia Coronary artery disease Myocardial infarction (HCC) Type 2 diabetes mellitus Sleep apnea Prostate atrophy Family History Medical [...] on file Legal 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 Gender Identity Not on file Sexual Orientation Not on file Obstetrics History Last Filed Vital Signs Vital Sign Reading Time Taken Comments Blood Pressure 120/70 05/07/2025 8:56 AM CDT Pulse 85 05/07/2025 8:56 AM CDT Temperature 36.7 C (98.1 F) 08/17/2024 9:05 AM CDT Respiratory Rate 16 10/02/2024 12:46 PM 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 Oxygen Saturation 97% 05/07/2025 8:56 AM CDT [...] 65+ (1 of 2 - PCV) 1969 Well Visit 65+ 2015 eGFR 07/29/2024 07/29/2023 Covid-19 Vaccine ( - season) 2025 09/08/2021, 01/12/2021, 12/12/2020 Influenza Vaccine (#1) 2025 08/30/2024, 2019 Lipid Panel 02/05/2026 02/05/2025, 04/02/2016 Colon Cancer Screening-Colonoscopy 08/17/20342023 Zoster Vaccine Completed 12/26/2023, 10/25/2023 Medical Devices Implanted Type Area Planer Stone Device Identifier Shelf Expiration Date Model / Serial / Lot Pacemaker Pacemaker N/A: Heart Plate Plate Left: Knee Prosthetic Valve Prosthetic Valve Bilateral : Heart Procedures Procedure Name Priority Date/Time Associated Diagnosis Comments SCAN - LABS 07/10/2025 PROTIME-INR Routine 07/10/2025 SCAN - LABS 06/02/2025 PROTIME-INR Routine 06/02/2025 TRANSTHORACIC ECHO (TTE) COMPLETE W DOPPLER/CF W CONTRAST Routine 05/24/2025 9:38 AM CDT Severe mitral regurgitation H/O mechanical aortic valve replacement SCAN - LABS 05/24/2025 PROTIME-INR Routine 05/09/2025 DEVICE CHECK - REMOTE Routine 05/07/2025 10:03 AM CDT Cardiac pacemaker in situ Chronic atrial fibrillation, unspecified (HCC) SSS (sick sinus syndrome) (HCC) POCT LIPID PANEL Routine 02/05/2025 8:45 AM CDT Atherosclerosis of [place] coronary artery of [place] heart without angina pectoris COLONOSCOPY 08/17/2024 8:17 AM CDT EGFR STAT 07/29/2023 10:21 AM CDT from Last 3 Months or Most Recently Relevant to Health Maintenance Results * SCAN - LABS (07/10/2025) us Provider Scanning Final Result * (ABNORMAL) Protime-INR (07/10/2025) INR 2.90(A) 0.90 - 1.10 EXTERNAL LAB Blood Historical Provider MD LAB BLOOD ORDERABLES Kim l Result EXTERNAL LAB * SCAN - LABS (06/02/2025) us Provider Scanning Final Result * (ABNORMAL) Protime-INR (06/02/2025) INR 3.00(A) 0.90 - 1.10 EXTERNAL LAB Blood Historical Provider MD LAB BLOOD ORDERABLES Kim l Result Performing Organization Address [facility]/ZIP Co de Phone Number EXTERNAL LAB * TRANSTHORACIC ECHO (TTE) COMPLETE W DOPPLER/CF W CONTRAST (05/24/2025 9:38 AM CDT) Estimated EF 25-30 % CONS SCIMAGE EF Mod BP 26 % CONS SCIMAGE Anatomical Region Laterality Modality Ultrasound 05/24/2025 8:22 AM CDT Narrative 05/24/2025 12:[address] [facility] Cardiology [address] [facility] [address] [address] [address], [place] [address] P:[phone] P:[phone] Echocardiographic Report Patient Name: MANNIE NEVAREZ L : 1950 Study Date: 05/24/2025 8:22:23 AM Gender: M Water Engineer: Devika Gutiérrez)(CT), [facility] Location: [place] Ref Provider: YVON MOMIN Height(Cm): 175 BSA: 2.27 Weight(Kg): 106.1 Heart Rate: 85 BP: 120 / 70 Quality: Good Order Provider: YVON MOMIN PROCEDURES: Echocardiographic Report: Transthoracic echocardiogram with complete 2D, M-Mode, color Doppler examination and Definity contrast. With Strain Analysis. INDICATIONS: I34.0 Nonrheumatic mitral (valve) insufficiency and Z95.2 H/O Mechanical Aortic Valve Replacement. MEASUREMENTS: 2D/MM Value Range Doppler Value Range EF Mod BP 26 % [ 52 - 72 ] MICHELLE Vmax 1.07 cm2 [ 2.00 - 4.00 ] Estimated EF 25-30 % AV Mean PG 15 mmHg LV GLS -4.82 % AV Peak Mario 2.49 m/s [ 1.00 - 1.70 ] LVIDd 2D 6.22 cm [ 4.20 - 5.80 ] AV Peak PG 25 mmHg LVIDs 2D 5.46 cm [ 2.50 - 4.00 ] AV VTI 37.62 cm LVPWd 2D 1.22 cm [ 0.60 - 1.00 ] LVOT Diam 1.96 cm [ 1.70 - 2.10 ] IVSd 2D 1.21 cm [ 0.60 - 1.00 ] LVOT Peak Mario 0.88 m/s [ 0.70 - 1.10 ] AoR Diam 2D 3.04 cm [ 3.10 - 3.70 ] LVOT VTI 15.96 cm LA Volume 129.85 ml [ 18.00 - 58.00 ] MV Mean PG 3 mmHg [ 0 - 5 ] LA Volume Index 57 cc/m2 [ 16 - 28 ] PV Peak Mario 0.86 m/s [ 0.40 - 0.80 ] RA Volume 89.29 ml TR Peak Mario 3.01 m/s [ 1.00 - 2.80 ] TR Peak PG 36 mmHg RV S` 8.46 mmHg 2D/MM Value Range Doppler Value Range - FINDINGS: Interpretation Site: Exam was interpreted at [facility]. Left Ventricle: Definity contrast agent used to visually enhance endocardial wall motion and contractility. Lot Number: [id number]. Mild concentric left ventricular hypertrophy. Severe enlargement of left ventricle cavity. Severe global left ventricular systolic dysfunction. Diastolic dysfunction is present. Ejection fraction is measured at 26 %. Ejection Fraction is visually estimated to be 25-30 %. Global Longitudinal Strain is -5 %. GLS is abnormal. Right Ventricle: Normal right ventricular size. Normal right ventricular systolic function. Linear artifact in right ventricle suggestive of catheter(s), pacemaker lead(s), or ICD lead(s). Left Atrium: There is severe enlargement of left atrium. Right Atrium: The right atrium is normal in size. Atrial Septum: Normal atrial septum. Mitral Valve: Moderate mitral annular calcification. Moderate mitral valve regurgitation. There is no hemodynamically significant mitral stenosis by Doppler. Aortic Valve: Mean gradient of 15.0 mmHg. Valve area of 1.1 cm2. Mild to moderate aortic valve regurgitation. Abnormally appearing aortic valve prosthesis. Gradients abnormal for valve type and size. Tricuspid Valve: Normal appearance of the tricuspid valve. Moderate pulmonary hypertension based on right ventricular systolic pressure. Estimated peak RVSP is 50-55 mmHg. Mild tricuspid regurgitation. Pulmonic Valve: Normal appearance of the pulmonic valve. No pulmonic stenosis. Mild pulmonic regurgitation. Pericardium: Normal pericardium with no significant pericardial effusion. Aorta: Sinus of Valsalva is mildly dilated. IVC: Dilated IVC with respiratory collapse consistent with elevated right atrial pressure (10-15 mmHg). CONCLUSIONS: Definity contrast agent used to visually enhance endocardial wall motion and contractility. Lot Number: [id number]. Mild concentric left ventricular hypertrophy. Severe enlargement of left ventricle cavity. Severe global left ventricular systolic dysfunction. Diastolic dysfunction is present. Ejection fraction is measured at 26 %. Ejection Fraction is visually estimated to be 25-30 %. Global Longitudinal Strain is -5 %. GLS is abnormal. Normal right ventricular size. Normal right ventricular systolic function. Linear artifact in right ventricle suggestive of catheter(s), pacemaker lead(s), or ICD lead(s). There is severe enlargement of left atrium. Moderate mitral annular calcification. Moderate mitral valve regurgitation. Mean gradient of 15.0 mmHg. Valve area of 1.1 cm2. Mild to moderate aortic valve regurgitation. Abnormally appearing aortic valve prosthesis. Gradients abnormal for valve type and size. Moderate pulmonary hypertension based on right ventricular systolic pressure. Estimated peak RVSP is 50-55 mmHg. Mild tricuspid regurgitation. Mild pulmonic regurgitation. Sinus of Valsalva is mildly dilated. Ventricular paced rhythm. Electronically Signed By: Sameer Bailon MD 05/24/2025 12:51:25 PM CDT Procedure Note Sameer Bailon MD - 05/24/2025 [facility] Cardiology [address], [place] [address] [address], [place] [address] P:[phone] P:[phone] Echocardiographic Report Patient Name: MANNIE NEVAREZ L : 1950 Study Date: 05/24/2025 8:22:23 AM Gender: M Water Engineer: Devika Sultana (Chalo)(CT), [facility] Location: [facility] Provider: YVON MOMIN Height(Cm): 175 BSA: 2.27 Weight(Kg): 106.1 Heart Rate: 85 BP: 120 / 70 Quality: Good Order Provider: YVON MOMIN PROCEDURES: Echocardiographic Report: Transthoracic echocardiogram with complete 2D, M-Mode, color Dopplerexamination and Definity contrast. With Strain Analysis. INDICATIONS: I34.0 Nonrheumatic mitral (valve) insufficiency and Z95.2 H/O MechanicalAortic Valve Replacement. MEASUREMENTS: 2D/MM Value Range DopplerValue Range EF Mod BP 26 % [ 52 - 72 ] MICHELLE Vmax 1.07cm2 [ 2.00 - 4.00 ] Estimated EF 25-30 % AV Mean PG 15mmHg LV GLS -4.82 % AV Peak Mario 2.49m/s [ 1.00 - 1.70 ] LVIDd 2D 6.22 cm [ 4.20 - 5.80 ] AV Peak PG 25mmHg LVIDs 2D 5.46 cm [ 2.50 - 4.00 ] AV VTI37.62 cm LVPWd 2D 1.22 cm [ 0.60 - 1.00 ] LVOT Diam 1.96cm [ 1.70 - 2.10 ] IVSd 2D 1.21 cm [ 0.60 - 1.00 ] LVOT Peak Mario 0.88m/s [ 0.70 - 1.10 ] AoR Diam 2D 3.04 cm [ 3.10 - 3.70 ] LVOT VTI15.96 cm LA Volume 129.85 ml [ 18.00 - 58.00 ] MV Mean PG 3mmHg [ 0 - 5 ] LA Volume Index 57 cc/m2 [ 16 - 28 ] PV Peak Mario 0.86m/s [ 0.40 - 0.80 ] RA Volume 89.29 ml TR Peak Mario 3.01m/s [ 1.00 - 2.80 ] TR Peak PG 36 mmHg RV S` 8.46 mmHg 2D/MM Value Range DopplerValue Range - FINDINGS: Interpretation Site: Exam was interpreted at [facility]. Left Ventricle: Definity contrast agent used to visually enhance endocardial wall motionand contractility. Lot Number: [id number]. Mild concentric left ventricularhypertrophy. Severe enlargement of left ventricle cavity. Severe global left ventricularsystolic dysfunction. Diastolic dysfunction is present. Ejection fraction ismeasured at 26 %. Ejection Fraction is visually estimated to be 25-30 %. Global LongitudinalStrain is -5 %. GLS is abnormal. Right Ventricle: Normal right ventricular size. Normal right ventricular systolic function.Linear artifact in right ventricle suggestive of catheter(s), pacemaker lead(s),or ICD lead(s). Left Atrium: There is severe enlargement of left atrium. Right Atrium: The right atrium is normal in size. Atrial Septum: Normal atrial septum. Mitral Valve: Moderate mitral annular calcification. Moderate mitral valveregurgitation. There is no hemodynamically significant mitral stenosis by Doppler. Aortic Valve: Mean gradient of 15.0 mmHg. Valve area of 1.1 cm2. Mild to moderate aorticvalve regurgitation. Abnormally appearing aortic valve prosthesis. Gradientsabnormal for valve type and size. Tricuspid Valve: Normal appearance of the tricuspid valve. Moderate pulmonary hypertensionbased on right ventricular systolic pressure. Estimated peak RVSP is 50-55 mmHg. Mildtricuspid regurgitation. Pulmonic Valve: Normal appearance of the pulmonic valve. No pulmonic stenosis. Mildpulmonic regurgitation. Pericardium: Normal pericardium with no significant pericardial effusion. Aorta: Sinus of Valsalva is mildly dilated. IVC: Dilated IVC with respiratory collapse consistent with elevated rightatrial pressure (10-15 mmHg). CONCLUSIONS: Definity contrast agent used to visually enhance endocardial wall motionand contractility. Lot Number: [id number]. Mild concentric left ventricularhypertrophy. Severe enlargement of left ventricle cavity. Severe global left ventricularsystolic dysfunction. Diastolic dysfunction is present. Ejection fraction ismeasured at 26 %. Ejection Fraction is visually estimated to be 25-30 %. Global LongitudinalStrain is -5 %. GLS is abnormal. Normal right ventricular size. Normal right ventricular systolic function.Linear artifact in right ventricle suggestive of catheter(s), pacemaker lead(s),or ICD lead(s). There is severe enlargement of left atrium. Moderate mitral annular calcification. Moderate mitral valveregurgitation. Mean gradient of 15.0 mmHg. Valve area of 1.1 cm2. Mild to moderate aorticvalve regurgitation. Abnormally appearing aortic valve prosthesis. Gradientsabnormal for valve type and size. Moderate pulmonary hypertension based on right ventricular systolicpressure. Estimated peak RVSP is 50-55 mmHg. Mild tricuspid regurgitation. Mild pulmonic regurgitation. Sinus of Valsalva is mildly dilated. Ventricular paced rhythm. Electronically Signed By: Sameer Bailon MD 05/24/2025 12:51:25 PM CDT Yvon Momin MD CV ECHO PROCEDURES Final Result * SCAN - LABS (05/24/2025) Provider Scanning Final Result * (ABNORMAL) Protime-INR (05/09/2025) INR 3.10(A) 0.90 - 1.10 EXTERNAL LAB Blood Historical Provider LAB BLOOD ORDERABLES Edit ed Result - Final EXTERNAL LAB * DEVICE CHECK - REMOTE (05/07/2025 10:03 AM CDT) Anatomical Region Laterality Modality Other Narrative 05/07/2025 10:29 AM CDT Biotronik Amvia Edge Dual Pacemaker. Dx; SSS, Afib, PVC's. DOI 03/08/2024-SLHV. Biotronik remote. Routine DDD Pacemaker Remote. Transmission attached. Battery status: Ok, 85% remaining battery life to BETO. Stable lead impedances, pacing and sensing thresholds. Presenting rhythm: Afib Vpaced. 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 AF [place] 100%. Average ventricular rate 88 bpm. Max ventricular rate during AT/AF 119 bpm. 2 PVC/hour. No Ventricular arrhythmias detected. Medications: Coumadin, Entresto. See scanned report. Office pacemaker follow up: 1 year. Biotronik remote f/u 08/13/2025. Lesly Herr, RN us Yvon Momin MD CV CARDIAC SERVICES PROCEDURES F inal Result * POCT lipid panel (02/05/2025 8:45 AM CDT) Cholesterol, POC <100 mg/dL HDL, POC 43 mg/dL Triglycerides, POC 82 mg/dL LDL Cholesterol POC 39.6 mg/dL Chol/HDL Ratio, POC n/a Non-HDL Cholesterol, POC n/a mg/dL Cholesterol Total, POC <100 mg/dL Capillary blood 02/05/2025 8 :45 AM CDT Yvon Momin MD POINT OF CARE TEST ORDERABLES Fi nal Result * Colonoscopy (08/17/2024 8:17 AM CDT) Anatomical Region Laterality Modality Other Narrative Procedure Note Meryl Spears MD - 08/17/2024 8:17 AM CDT [facility] GI ENDOSCOPY Patient Name: Mannie Nevarez Procedure Date: 08/17/2024 8:17 AM Date of : 1950 Admit Type: Outpatient Age: 74 Gender: Male Attending MD: Meryl Spears M.D. Room: [facility] ENDOSCOPY ROOM 05 Note Status: Finalized [...] polypectomy, one hemostaticclip was successfully placed. 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 Therewas no bleeding at the end of [...] Resected and retrieved. Clip was placed. 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 - Diverticulosis in the left colon. Biopsied. [...] us Meryl Spears MD ENDOSCOPY PROCEDURES Kim carpio Result * eGFR (07/29/2023 10:21 AM CDT) eGFR >90 90 - 130 mL/min/1. 73 m2 [facility] Comment: Interpretive Data Reference Interval Normal [...] BLOOD ORDERABLES Final Result Performing Organization Address City/State/[place] Phone Number [facility] [place] [address] from Last 3 Months or Most Recently Relevant to Health Maintenance Insurance MEDICARE [facility] MEDICARE [employer] MEDICARE [address]PPLEMENT [address] [place] [address] MEDICARE [facility] BLUE [employer] MEDICARE SUPPLEMENT Care Teams Dental Laboratory Technology Teacher Relationship Specialty Start Date End Date Fabian Patterson MD [address] [address] PCP - General Internal Medicine 05/07/25
--- OUTSIDE RECORDS SUMMARY | 2025-08-06 15:02 | XMS_ITS | Encounter Summary ---
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 Gender Identity Not on file Sexual Orientation Not on file documented as of this encounter Plan of Treatment Not on file documented as of this encounter Procedures Procedure Name Priority Date/Time Associated Diagnosis Comments SCAN - LABS 02/12/2025 documented in this encounter Results * SCAN - LABS (02/12/2025) us Provider Scanning Final Result documented in this encounter Visit Diagnoses Not on filedocumented in this encounter Care Teams Aoc Director Combat Operations Officer Relationship Specialty Start Date End Date Bennie Nova MD [address] [place] [address] PCP - General Cardiovascular Disease 06/02/21 5 Fabian Patterson MD [address] [facility] [address] [place] [address] PCP - General Internal Medicine 05/07/25 documented as of this encounter
--- OUTSIDE RECORDS SUMMARY | 2025-08-06 15:02 | XMS_ITS | Encounter Summary ---
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 Gender Identity Not on file Sexual Orientation Not on file documented as of this encounter Plan of Treatment Not on file documented as of this encounter Procedures Procedure Name Priority Date/Time Associated Diagnosis Comments SCAN - LABS 03/05/2025 documented in this encounter Results * SCAN - LABS (03/05/2025) us Provider Scanning Final Result documented in this encounter Visit Diagnoses Not on filedocumented in this encounter Care Teams Terminal Computer Operator Relationship Specialty Start Date End Date Bennie Nova MD [address] [place] [address] PCP - General Cardiovascular Disease 06/02/21 5 Fabian Patterson MD [address] [facility] [address] [place] [address] PCP - General Internal Medicine 05/07/25 documented as of this encounter
--- OUTSIDE RECORDS SUMMARY | 2025-08-06 15:02 | XMS_ITS | Encounter Summary ---
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 Gender Identity Not on file Sexual Orientation Not on file documented as of this encounter Plan of Treatment Not on file documented as of this encounter Procedures Procedure Name Priority Date/Time Associated Diagnosis Comments SCAN - LABS 04/09/2025 documented in this encounter Results * SCAN - LABS (04/09/2025) us Provider Scanning Edited Result - Final documented in this encounter Visit Diagnoses Not on filedocumented in this encounter Care Teams Flea Market Seller Relationship Specialty Start Date End Date Bennie Nova MD [address] [place] [address] PCP - General Cardiovascular Disease 06/02/21 5 Fabian Patterson MD [address] [facility] [address] [place] [address] PCP - General Internal Medicine 05/07/25 documented as of this encounter
--- OUTSIDE RECORDS SUMMARY | 2025-08-06 15:02 | XMS_ITS | Clinical Summary ---
Author Organization [facility] Address [address] [place] [address] Care Team Providers Care Manager Search Engine Name Role Phone Unavailable Primary Care Provider [...] 2) 01/30/2000 Annual Medicare Wellness Visit 2015 RSV Immunization or 60+ Years (1 - 1-dose 75+ series) 2025 COVID-19 Vaccine ( - 2023-2 5 season) 2025 Meningococcal B Vaccine Aged Out No l onger eligible based on patient's age to complete this topic Meningococcal Vaccine Aged Out No francisco rani eligible based on patient's age to complete this topic RSV Immunizations Under 20 Months Aged Out No longer eligible based on patient's age to complete this topic Insurance MEDICARE [facility]
--- OUTSIDE RECORDS SUMMARY | 2025-08-06 15:02 | XMS_ITS | Patient Health Record ---
Author Organization [facility] [employer] [facility] Address [address] [place] [address] Support Name Relationship Address Phone Malcolm Nevarez Guarantor Unknown [phone] Reason For Referral No Information Plan Of Treatment No Information Insurance Providers Payer Name Payer Address Payer Phone Subscriber Number Group Number Insured Name Patient Relationship to Insured Coverage Start Date Coverage End Date [facility] [address] [place] [address] [id number] Malcolm Nevarez Self - patient is the insured 0 [employer] [place] [address] [address] [place] [address] [id number] Malcolm Nevarez Self - patient is the insured 7 [facility] [address] [place] [address] [id number] Malcolm Nevarez Self - patient is the insured 8
--- OUTSIDE RECORDS SUMMARY | 2025-08-06 15:02 | XMS_ITS | Encounter Summary ---
Author Organization [facility] Healthcare Address [address] [place] [address] Care Team Providers Care Operational Test Mechanic Name Role Phone Bennie Nova MD Primary Care Provider Fabian Patterson MD Primary Care Provide r Encounter Details Date Type Department Care Team (Late st Contact Info) Description 03/22/2025 Orders Only [facility] [place] Health Information Management [address] [place] [address] Scanning, Provider Social History Tobacco Use Types [...] on file Legal Sex Male 12:10 AM BEDSPREAD CUTTER HAND Gender Identity Not on file Sexual Orientation Not on file documented as of this encounter Plan of Treatment Not on file documented as of this encounter Procedures Procedure Name Priority Date/Time Associated Diagnosis Comments SCAN - LABS 03/22/2025 documented in this encounter Results * SCAN - LABS (03/22/2025) us Provider Scanning Final Result documented in this encounter Visit Diagnoses Not on filedocumented in this encounter Care Teams Operational Test Mechanic Relationship Specialty Start Date End Date Bennie Nova MD [address] [place] [address] PCP - General Cardiovascular Disease 06/02/21 5 Fabian Patterson MD [address] [facility] [address] [place] [address] PCP - General Internal Medicine 05/07/25 documented as of this encounter
--- OUTSIDE RECORDS SUMMARY | 2025-08-06 15:02 | XMS_ITS | Encounter Summary ---
Author Organization [facility] Address [address] [place] [address] Care Team Providers Care Marine Equipment Research Engineer Name Role Phone Bennie Nova MD Primary Care Provider Alison jeronimo Encounter Details Date Type Department Care Team (Late st Contact Info) Description 04/13/2024 Lab Requisition [facility] - DermPath Lab [address] [facility], [place] [address] Lou Clark PA-C [address] [place] [address] Neoplasm of uncertain behavior of skin Social History Tobacco Use Types Packs/Day Years Used Date Smoking Tobacco: Never Alcohol Use Standard Drinks/Week Comments Not Asked 0 (1 standard drink = 0.6 oz pur e alcohol) Sex and Gender Information Value Date Recorded Sex Assigned at Not on file Legal Sex Male 10:01 AM OUTPATIENT SERVICES DIRECTOR Gender Identity Not on file Sexual Orientation Not on file documented as of this encounter Plan of Treatment Not on file documented as of this encounter Procedures Procedure Name Priority Date/Time Associated Diagnosis Comments DERMATOPATHOLOGY Routine 04/13/2024 12:0 0 AM CDT Neoplasm of uncertain behavior of skin documented in this encounter Results * DERMATOPATHOLOGY (04/13/2024 12:00 AM CDT) Case Report Dermatopathology Report Case: [id number] Authorizing Provider: Lou Clark, Collected: 04/13/2024 12:00 [...] purposes. Billing Codes Specimen Charges Stain Charges [id number] 1 1 4 1:29 PM CDT DERMATOPATHOLOGY LABORATORY Embedded Images 1:29 PM CDT DERMATOPATHOLOGY LABORATORY Pathology/Cytology TISSUE SPECIMEN FROM SKIN / Unknown 04/13/2024 04/16/2024 11:01 AM CDT Miscellaneous samples (specimen) TISSUE SPECIMEN FROM SKIN / Unknown 04/13/2024 04/16/2024 11:01 AM CDT Lou Clark PA-C LAB - PATHOLOGY/CYTO LOGY ORDERABLES Final Result DERMATOPATHOLOGY LABORATORY [facility] - Department of Dermatology [facility] [address] [place] [address], [address] [phone] documented in this encounter Visit Diagnoses Diagnosis Neoplasm of uncertain behavior of skin documented in this encounter Care Teams Marine Equipment Research Engineer Relationship Specialty Start Date End Date Bennie Nova MD PCP - General Internal Medicine 10/10/12 documented as of this encounter
--- OUTSIDE RECORDS SUMMARY | 2025-08-06 15:02 | XMS_ITS | Patient Health Record ---
Author Organization [facility] Address [address] [place] [address] Care Team Providers Care Service Station Manager Name Role Phone Gigi Justin Unavailable [phone] Reason For Referral No Information Medications Medication SIG (Take, Route, Frequency, Duration) Notes Start Date End Date Status Ergocalciferol 1.25 MG (93900 UT) 1 capsule Orally Once a week; Duration: 90 day(s) 04/25/2024 09/29/2025 Active Calcitriol 0.25 MCG 1 capsule Orally Onc e a day; Duration: 90 day(s) 04/25/2024 09/29/2025 Active Social History Sex Assigned At : Social History Observation Description Sex Assigned At Male Problems Problem Type SNOMED Code ICD Code Onset Dates Problem Status W/U Status Risk Notes Problem Hyperlipidemia (44385482) Hyperlipidemia, unspecified (E78.5) Active confirmed Problem Anxiety disorder (562262867) Anxiety disorder, unspecified (F41.9) Active confirmed Problem Chronic pain (84830272) Other chronic pain (G89.29) Active confirmed Problem Aortic valve disorder (9395772) Nonrheumatic aortic (valve) stenosis (I35.0) Active confirmed Problem Sick sinus syndrome (59364013) Sick sinus syndrome (I49.5) Active confirmed Problem Heart failure (33043070) Heart failure, unspecified (I50.9) Active confirmed Problem Chronic kidney disease stage 2 (995941000) Chronic kidney disease, stage 2 (mild) (N18.2) Active confirmed Problem Renal osteodystrophy (78793526) Renal osteodystrophy (N25.0) Active confirmed Problem Chronic fatigue syndrome (disorder) (03748604) Chronic fatigue, unspecified (R53.82) Active confirmed Problem Glycosuria (66610458) Glycosuria (R81) Active confirmed Problem History of malignant neoplasm of larynx (106629866) 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) Active confirmed Problem Benign prostatic hypertrophy without outflow obstruction (596571491) Benign prostatic hyperplasia without lower urinary tract symptoms (N40.0) Active confirmed Problem Coronary artery disease (54385439) CAD (coronary artery disease) (I25.10) Active confirmed Encounters Encounter Location Date Provider Diagnosis [facility] [address] [address] 12/12/2024 Gigi Justin Chronic kidney disea se, stage 3a N18.31 ; 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 ; Hyperlipidemia, unspecified E78.5 ; CAD (coronary artery disease) I25.10 and Benign prostatic hyperplasia without lower urinary tract symptoms N40.0 [facility] [address] [place] [address] 01/02/2025 Gigi Justin Chronic kidney disea se, stage 2 (mild) N18.2 ; Anxiety disorder, unspecified F41.9 ; Chronic fatigue, unspecified R53.82 ; Renal osteodystrophy N25.0 ; Heart failure, unspecified I50.9 ; 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 ; Hyperlipidemia, unspecified E78.5 ; CAD (coronary artery disease) I25.10 and Benign prostatic hyperplasia without lower urinary tract symptoms N40.0 [facility] [address] [address] 02/13/2025 Gigi Justin Chronic kidney disea se, [...] G89.29 and Nonrheumatic aortic (valve) stenosis I35.0 [facility] [address] [address] 06/12/2025 Gigi Justin Chronic kidney disea se, [...] stenosis I35.0 and Sick sinus syndrome I49.5 [facility] [address] [place] [address] 12/19/2024 Gigi Justin [place] [facility] [address] [facility] [address] [place] [address] 01/02/2025 Gigi Justin Assessments Encounter Date Diagnosis [...] disorder, unspecified (ICD-10 - F41.9) 06/12/2025 Chronic kidney disease, stage 2 (mild) (ICD-10 - N18.2) 06/12/2025 Chronic fatigue, unspecified (ICD-10 - R53.82) 02/13/2025 Anxiety disorder, unspecified (ICD-10 - F41.9) 01/02/2025 Anxiety disorder, unspecified (ICD-10 - F41.9) 12/12/2024 Hyperlipidemia, unspecified (ICD-10 - E78.5) 12/12/2024 CAD (coronary artery disease) (ICD-10 - I25.10) 01/02/2025 Chronic fatigue, unspecified (ICD-10 - R53.82) 02/13/2025 Chronic fatigue, unspecified (ICD-10 - R53.82) 06/12/2025 Renal osteodystrophy (ICD-10 - N25.0) 06/12/2025 Heart failure, unspecified (ICD-10 - I50.9) 02/13/2025 Renal osteodystrophy (ICD-10 - N25.0) 01/02/2025 Renal osteodystrophy (ICD-10 - N25.0) 12/12/2024 Benign prostatic hyperplasia without lower urinary tract symptoms (ICD-10 - N40.0) 01/02/2025 Heart failure, unspecified (ICD-10 - I50.9) 06/12/2025 Personal history of malignant neoplasm of larynx (ICD-10 - Z85.21) 02/13/2025 Heart failure, unspecified (ICD-10 - I50.9) 02/13/2025 Personal history of malignant neoplasm of larynx (ICD-10 - Z85.21) 06/12/2025 Hyperlipidemia, unspecified (ICD-10 - E78.5) 01/02/2025 Personal history of malignant neoplasm of larynx (ICD-10 - Z85.21) 01/02/2025 Hyperlipidemia, unspecified (ICD-10 - E78.5) 02/13/2025 Hyperlipidemia, unspecified (ICD-10 - E78.5) 06/12/2025 CAD (coronary artery disease) (ICD-10 - I25.10) 06/12/2025 Benign prostatic hyperplasia without lower urinary tract symptoms (ICD-10 - N40.0) 02/13/2025 CAD (coronary artery disease) (ICD-10 - I25.10) 01/02/2025 CAD (coronary artery disease) (ICD-10 - I25.10) 01/02/2025 Benign prostatic hyperplasia without lower urinary tract symptoms (ICD-10 - N40.0) 02/13/2025 Benign prostatic hyperplasia without lower urinary tract symptoms (ICD-10 - N40.0) 06/12/2025 Glycosuria (ICD-10 - R81) 06/12/2025 Other chronic pain (ICD-10 - G89.29) 02/13/2025 Glycosuria (ICD-10 - R81) 02/13/2025 Other chronic pain (ICD-10 - G89.29) 06/12/2025 Nonrheumatic aortic (valve) stenosis (ICD-10 - I35.0) 06/12/2025 Sick sinus syndrome (ICD-10 - I49.5) 02/13/2025 Nonrheumatic aortic (valve) stenosis (ICD-10 - I35.0) Plan Of Treatment Next Appt Details Provider Name:Gigi Justin , 09/11/2025 02:15:00 PM, [address], [facility] [address], [place], [address],
--- OUTSIDE RECORDS SUMMARY | 2025-08-06 15:02 | XMS_ITS | Clinical Summary ---
Author Organization [facility] Facility Address [address] [address] Care Team Providers Care Amphibian Crewmember Name Role Phone Tiana Patterson MD Primary Care Provider [phone] Encounters Date Type Department Care Team Description 07/19/2025 Documentation Only [facility] [employer] [facility], [address] [address] Jv Stearns, 06/13/2025 Office Communication [employer] [address] [address] vJ Stearns, 06/11/2025 Documentation Only [employer] [employer] [address] [address] Provider, MD Nereyda from Last 3 Months Social History Tobacco Use Types Packs/Day Years Used Date Smoking Tobacco: Never Assessed Sex and Gender Information Value Date Recorded Sex Assigned at Not on file Legal Sex Male 11:28 AM EDT Gender Identity Not on file Sexual Orientation Not on file Plan of Treatment Upcoming Encounters Date Type Department Care Team (Late st Contact Info) Description 10/08/2025 2:30 PM TEACHER DRAMATICS Office Visit [facility] [employer] [facility], [facility] [address] [facility] [address] [place] [address] Jv Sterans, DO [address] [place] [address] Health Maintenance Due Date Last Done Comments Colorectal Cancer Screening: Annual FOBT 1999 Colorectal Cancer Screening: Sigmoidoscopy 1999 Hepatitis B Vaccine (1 of 3 - Risk 3-dose series) 2010 Pneumococcal Vaccine: 50+ Ye ars (2 of 2 - PPSV23, PCV20, or PCV21) 01/02/2021 11/07/2020 Diabetes: Hemoglobin A1C 06/11/2025 Diabetes: Ophthalmology Exam 06/11/2025 Diabetes: Pedal Pulse Checked 06/11/2025 Diabetes: Sensory Foot Exam 06/11/2025 Diabetes: Visual Foot Exam 06/11/2025 Influenza Vaccine (#1) 2025 08/30/2024, 2022 Colorectal Cancer Screening: Colonoscopy 08/17/2034 08/17/2024 Insurance [facility] Care Teams Amphibian Crewmember Relationship Specialty Start Date End Date Tiana Patterson MD [address] [facility] [address] [place] [address] PCP - General Internal Medicine 06/11/25
--- OUTSIDE RECORDS SUMMARY | 2025-08-06 15:03 | XMS_ITS | Encounter Summary ---
Author Organization [facility] Address [address] [place] [address] Care Team Providers Care Wire Coiner Name Role Phone Bennie Nova MD Primary Care Provider Unava ilable Encounter Details Date Type Department Care Team (Late st Contact Info) Description 11/21/2019 Lab Requisition [facility] [address] [facility], [place] [address] Hali Fletcher DO [address] [facility] 3 [place] [address] Social History Tobacco Use Types Packs/Day Years Used Date Smoking Tobacco: Never Alcohol Use Standard Drinks/Week Comments Not Asked 0 (1 standard drink = 0.6 oz pur e alcohol) Sex and Gender Information Value Date Recorded Sex Assigned at Not on file Legal Sex Male 10:01 AM TOWER HOIST OPERATOR Gender Identity Not on file Sexual Orientation Not on file documented as of this encounter Plan of Treatment Not on file documented as of this encounter Procedures Procedure Name Priority Date/Time Associated Diagnosis Comments DERMATOPATHOLOGY Routine 11/20/2019 12:0 0 AM TOWER HOIST OPERATOR documented in this encounter Results * DERMATOPATHOLOGY (11/20/2019 12:00 AM TOWER HOIST OPERATOR) Case Report Dermatopathology Report Case: [id number] Authorizing Provider: Hali Fletcher DO Collected: 11/20/2019 12:00 AM Ordering Location: [facility] DermPath Lab Received: 11/21/2019 01:31 PM Pathologist: Warner Garcia MD Specimen: Skin, left episcopalian 0 7:23 PM [facility] DERMATOPATHOLOGY LABORATORY Final Diagnosis Specimen A. 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 0 7:23 PM [facility] DERMATOPATHOLOGY LABORATORY Gross Description Specimen A: Received is one formalin filled container labeled with the patient's name and designated left episcopalian. The specimen consists of a shave measuring [id number]. Jar 0. 0 7:23 PM [facility] DERMATOPATHOLOGY LABORATORY Microscopic Description Specimen A. SKIN, left episcopalian: Arising in the epidermis and extending into the dermis there are irregularly shaped aggregates of keratinocytes showing evidence of premature cornification. 0 7:23 PM TOWER HOIST OPERATOR DERMATOPATHOLOGY LABORATORY Disclaimer An external and [...] purposes. Billing Codes Specimen Charges Stain Charges [id number] 0 7:23 PM TOWER HOIST OPERATOR DERMATOPATHOLOGY LABORATORY Embedded Images 0 7:23 PM [facility] DERMATOPATHOLOGY LABORATORY Pathology/Cytolog y TISSUE SPECIMEN FROM SKIN / Unknown 11/20/2019 11/21/2019 1:31 PM [facility] us Hali Fletcher DO LAB - PATHOLOGY/CYTOLOGY ORDERABLES Final Result DERMATOPATHOLOGY LABORATORY [facility] - Department of Dermatology [address] [facility], 5th Floor Lab [address] [phone] documented in this encounter Visit Diagnoses Not on filedocumented in this encounter Care Teams Wire Coiner Relationship Specialty Start Date End Date Bennie Nova MD PCP - General Internal Medicine 10/10/12 documented as of this encounter
[2025-08-06 15:11] LABS: Hematocrit 44.2 % (42.0-52.0); Hemoglobin 14.2 g/dL (14.0-18.0); Immature Granulocyte Percent A 0.3 % (0-0.5); Lymphocytes Absolute Auto 1.37 K/mm3 (0.9-3.2); Mean Corpuscular HGB Conc 32.1 g/dl (32-36); Mean Corpuscular Hemoglobin 30.5 pg (26-34); Mean Corpuscular Volume 94.8 fl (80-100); Nucleated Red Blood Cells Absolute Auto 0.000 K/mm3 (0.0-0.012); Nucleated Red Blood Cells Perc 0.0 % (0.0-0.2); Platelet Count Result 170 k/mm3 (150-375); Red Blood Count 4.66 M/mm3 (4.6-6.20); White Blood Count 10.4 K/mm3 (4.5-10.0)
--- OUTSIDE RECORDS SUMMARY | 2025-08-06 15:14 | XMS_ITS | Data Portability ---
Author Organization [place] [facility] [employer], Main Office Address [address] [place] [address] Care Team Providers Care Miniature Set Builder Name Role Phone NAHED PATTERSON Primary Care Provider NAHED PATTERSON Referring Provider STELLA WYMAN Margin Clerk GIGI RUIZ Trolley Operator Assessment Encounter Date Assessment Date Assessment LastModified by Organization Details LastModified Time 12/06/2024 12/06/2024 10/20/2023: A1C 5.8 PSA 0.72 [...] Glob 2.2L, TP WNL Hep panel Neg [email or web address] Not available 12/06/2024 12:26:15 04/16/2025 04/16/2025 10/20/2023: [...] WNL Hep panel Neg 04/09/2025: A1C 5.8 [facility] Not available 04/14/2025 11:52:13 07/18/2025 07/18/2025 10/20/2023: A1C 5.8 PSA 0.72 Gluc 100 [...] WNL Hep panel Neg 04/09/2025: A1C 5.8 07/10/2025: A1C 6.1 VIT D 28.4 Gluc 101, BUN 20H [facility] Not available 07/17/2025 14:17:47 Plan of Treatment Reminders Order Date Submit Date Provider Last Modified By Organization Details Last Modified Time Details Appointments Any 15 2025 09:00A Warner vasquez MD Not available Not available Not available Lab lipid panel, serum 2024 025 [email or web address] [facility] (Lab), [address] [place], [address], 07/18/2025 09:43:09 CBC w/ auto diff [address] (Lab), [address] [place], [address], 07/18/2025 09:43:09 CMP, serum or plasma [address] (Lab), [address] [place], [address], 07/18/2025 09:43:09 TSH, serum or plasma [address] (Lab), [address] [place], [address], 07/18/2025 09:43:09 vitamin D, 25-hydrox y, total, serum [address] (Lab), [address] [place], [address], 07/18/2025 09:43:10 glycohemo globin, total, blood [address] (Lab), [address] [place], [address], 07/18/2025 09:43:08 microalbu min, urine [address] (Lab), [address] [place], [address], 07/18/2025 09:43:09 lipid panel, serum 2024 025 [facility] (Lab), [address] [place], [address], 07/10/2025 11:35:25 CBC w/ auto diff 2024 025 [facility] (Lab), [address] [place], [address], 05/06/2025 12:38:36 CMP, serum or plasma 2024 025 [facility] (Lab), [address] [place], [address], 05/06/2025 12:38:36 TSH, serum or plasma 2024 025 [facility] (Lab), [address] [place], [address], 07/10/2025 12:04:02 vitamin D, 25-hydrox y, total, serum [address] (Lab), [address] [place], [address], 04/16/2025 09:40:53 glycohemo globin, total, blood 2024 025 [facility] (Lab), [address] [place], [address], 07/10/2025 13:25:41 microalbu min, urine 2024 025 [facility] (Lab), [address] [place], [address], 07/10/2025 11:52:09 urinalysi s, dipstick 2024 025 [facility], [address] [facility] [address], [address], 12/17/2024 10:49:09 lipid panel, serum [address] (Lab), [address] [place], [address], 06/04/2025 11:58:42 CBC w/ auto diff 2024 025 [facility] (Lab), [address] [place], [address], 2025 13:52:13 CMP, serum or plasma 2024 025 [facility] (Lab), [address] [place], [address], 2025 13:52:13 TSH, serum or plasma [address] (Lab), [address] [place], [address], 06/04/2025 11:58:42 vitamin D, 25-hydrox y, total, serum 2024 025 [facility] (Lab), [address] [place], [address], 04/24/2025 12:52:59 glycohemo globin, total, blood 2024 025 [facility] (Lab), [address] [place], [address], 04/24/2025 12:53:26 microalbu min, urine [address] (Lab), [address] [place], [address], 06/04/2025 11:58:42 Referral nephrolog ist referral - Please call patient to schedule an appointme nt. Thank you. 2024 025 FLETCHER Stearns DO, [address] [facility] [address], [place], [address], 07/19/2025 10:32:13 pulmonolo gist referral - Please call patient to schedule an appointme nt. Thank you. 2024 025 [email or web address] Pham Aldridge NP, [address] [facility], [facility] [address], [place], [address], 07/22/2025 16:20:36 urologist referral - Please call patient to schedule an appointme nt. Thank you. 2024 025 [facility] [address], [address], [place], [address], 07/19/2025 10:23:16 podiatris t referral - Please call patient to schedule an appointme nt. Thank you. 2024 025 [facility] Marcelino Bryce DPM, [address], [place], [address], 07/19/2025 10:29:38 nephrolog ist referral - Please call patient to schedule an appointme nt. Thank you. 2024 025 [facility] Jv Stearns DO, [address] [facility], [address], [address], 06/11/2025 11:23:28 pulmonolo gist referral - Please call patient to schedule an appointme nt. Thank you. 2024 025 [email or web address] Pham Aldridge [employer], [address] [facility] [place], [address], 04/19/2025 17:28:23 urologist referral - Please call patient to schedule an appointme nt. Thank you. 2024 025 [email or web address], [place], [address], 07/18/2025 15:04:50 podiatris t referral - Please call patient to schedule an appointme nt. Thank you. ( I believe this patient is already being followed by your office) 2024 025 [email or web address] Marcelino Bryce DPM, [address], [place], [address], 07/18/2025 15:04:49 nephrolog ist referral - Please call patient to schedule an appointme nt. Thank you. 2024 [email or web address] Gigi Ruiz MD (Nephrology, [address] [facility], [address], [place], [address], 01/15/2025 18:05:31 pulmonolo gist referral - Please call patient to schedule an appointme nt. Thank you. 2024 025 [email or web address] Pham Aldridge [employer], [address] [facility] [address], [place], [address], 02/12/2025 08:48:37 urologist referral - Please call patient to schedule an appointme nt. Thank you. 2024 025 [email or web address] Rafael Mares, [address] [facility], [facility] [address], [place], [address], 12/10/2024 15:04:30 podiatris t referral - Please call patient to schedule an appointme nt. Thank you. ( I believe this patient is already being followed by your office) 2024 [email or web address] Marcelino Wu DPM, [address] [facility], [address], [place], [address], 06/10/2025 12:14:26 cardiolog ist referral - Please call patient to schedule an appointme nt. Thank you. 2024 [email or web address] Darvin Birmingham MD, [address], [address], [place], [address], 04/11/2025 09:43:29 Procedures None recorded. Surgeries None recorded. Imaging None recorded. Medication Orders sildenafi l 100 mg tablet 2024 [facility], [address] [facility], [place], [address], 07/18/2025 09:42:26 cholecalc iferol (vitamin D3) 1,250 mcg (50,000 unit) capsule 2024 025 [facility] #[id number], [address], [place], [address], 07/18/2025 09:41:35 tamsulosi n 0.4 mg capsule 2024 025 [facility] #[id number], [address], [place], [address], 12/14/2024 16:12:42 Patient TargetsNo targets recorded. Patient Instructions Encounter Date Encounter Id Patient Instructions Last Modified By Organization Details Last Modified Time 09/12/2024 [id number] 1. The patient i s already taking tamsulosin and finasteride 2. I really do not think there is anything I can offer except limit his fluids but otherwise no other recommendations and just follow up as needed Not available 09/12/2024 16:15:42 12/14/2024 [id number] 1. BPH with obstruction 2. I will increase his tamsulosin to 2 capsules a day he will take it at 6:00 p.m. 3. He can either have his primary care refill the prescription or he can come back here in 1 year Not available 12/14/2024 16:12:13 Reason for Referral Real Estate Associate Referral for Type 2 diabetes mellitus without complication Please call patient to schedule an appointment. Thank you. ( I believe this patient is already being followed by your office) Referring Physician: Nahed Patterson, Internal Medicine, Encounter Date: 12/06/2024 Margin Clerk Referral for Co ronary arteriosclerosis Please call patient to schedule an appointment. Thank you. Referring Physician: Nahed Patterson Internal Medicine, Encounter Date: 12/06/2024 Disease And Insect Control Boss Referral for O bstructive sleep apnea syndrome Please call patient to schedule an appointment. Thank you. Referring Physician: Nahed Patterson Internal Medicine, Encounter Date: 12/06/2024 Trolley Operator Referral for Pr oteinuria Please call patient to schedule an appointment. Thank you. Referring Physician: Nahed Patterson Internal Medicine, Encounter Date: 12/06/2024 Urologist Referral for Urina ry incontinence Please call patient to schedule an appointment. Thank you. Referring Physician: Nahed Patterson Internal Medicine, Encounter Date: 12/06/2024 Real Estate Associate Referral for Type 2 diabetes mellitus without complication Please call patient to schedule an appointment. Thank you. ( I believe this patient is already being followed by your office) Referring Physician: Nahed Patterson Internal Medicine, Encounter Date: 04/16/2025 Disease And Insect Control Boss Referral for O bstructive sleep apnea syndrome Please call patient to schedule an appointment. Thank you. Referring Physician: Bernard Lieberman Medicine, Encounter Date: 04/16/2025 Trolley Operator Referral for Pr oteinuria Please call patient to schedule an appointment. Thank you. Referring Physician: Nahed Patterson Internal Medicine, Encounter Date: 04/16/2025 Urologist Referral for Urina ry incontinence Please call patient to schedule an appointment. Thank you. Referring Physician: Bernard Lieberman Medicine, Encounter Date: 04/16/2025 Real Estate Associate Referral for Type 2 diabetes mellitus without complication Please call patient to schedule an appointment. Thank you. Referring Physician: Nahed Patterson Internal Medicine, Encounter Date: 07/18/2025 Disease And Insect Control Boss Referral for O bstructive sleep apnea syndrome Please call patient to schedule an appointment. Thank you. Referring Physician: Nahed Patterson Internal Medicine, Encounter Date: 07/18/2025 Trolley Operator Referral for Pr oteinuria Please call patient to schedule an appointment. Thank you. Referring Physician: Bernard Lieberman Medicine, Encounter Date: 07/18/2025 Urologist Referral for Urina ry incontinence Please call patient to schedule an appointment. Thank you. Referring Physician: Nahed Patterson, Internal Medicine, Encounter Date: 07/18/2025 Results Created Date Observation Date Name Description Value Unit Range Abnormal Flag Note LastModifiedBy Organization Detail LastModifiedTime 08/31/2008/31/2024 CBC/C OMPLE TE BLD COUNT W/DIF F white blood cells 7.4 x10'3 /uL 4.2-10 .8 Not Available [facility] (Lab) [address] [place], [address], 08/31/2024 11:18:30 08/31/2008/31/2024 CBC/C OMPLE TE BLD COUNT W/DIF F red blood cells 4.90 x10'6 /uL 4.10-5 .80 Not Available [facility] (Lab) [address] [place], [address], 08/31/2024 11:18:30 08/31/20 24 08/31/2024 CBC/C OMPLE TE BLD COUNT W/DIF F hemoglobin 14.9 g/dL 13.2-1 7.0 Not Available [facility] (Lab) [address] [place], [address], 08/31/2024 11:18:30 08/31/20 24 08/31/2024 CBC/C OMPLE TE BLD COUNT W/DIF F hematocrit 45.5 % 39.3-5 0.0 Not Available [facility] (Lab) [address] [place], [address], 08/31/2024 11:18:30 08/31/20 24 08/31/2024 CBC/C OMPLE TE BLD COUNT W/DIF F mean red cell volume 92.9 fL 80.0-9 7.0 Not Available [facility] (Lab) [address] [place], [address], 08/31/2024 11:18:30 08/31/20 24 08/31/2024 CBC/C OMPLE TE BLD COUNT W/DIF F mean red cell hemoglobin 30.4 pg 27.0-3 3.0 Not Available [facility] (Lab) [address] [place], [address], 08/31/2024 11:18:30 08/31/20 24 08/31/2024 CBC/C OMPLE TE BLD COUNT W/DIF F mean RBC HGB concentratio n 32.7 g/dL 31.0-3 6.0 Not Available [facility] (Lab) [address] [place], [address], 08/31/2024 11:18:30 08/31/2008/31/2024 CBC/C OMPLE TE BLD COUNT W/DIF F red cell distribution width 14.0 % 11.8-1 5.5 Not Available [facility] (Lab) [address] [place], [address], 08/31/2024 11:18:30 08/31/20 24 08/31/2024 CBC/C OMPLE TE BLD COUNT W/DIF F platelets 151 x10'3 /uL 150-40 0 Not Available [facility] (Lab) [address] [place], [address], 08/31/2024 11:18:30 08/31/20 24 08/31/2024 CBC/C OMPLE TE BLD COUNT W/DIF F mean platelet volume 10.0 fL 9.0-12 .4 Not Available [facility] (Lab) [address] [place], [address], 08/31/2024 11:18:30 08/31/20 24 08/31/2024 CBC/C OMPLE TE BLD COUNT W/DIF F neutrophils 78.8 % 39.0-7 2.0 high Not Available [facility] (Lab) [address] [place], [address], 08/31/2024 11:18:30 08/31/2008/31/2024 CBC/C OMPLE TE BLD COUNT W/DIF F lymphocytes 11.8 % 16.0-4 7.0 low Not Available [facility] (Lab) [address] [place], [address], 08/31/2024 11:18:30 08/31/2008/31/2024 CBC/C OMPLE TE BLD COUNT W/DIF F monocytes 8.1 % 5.0-12 .0 Not Available [facility] (Lab) [address] [place], [address], 08/31/2024 11:18:30 08/31/2008/31/2024 CBC/C OMPLE TE BLD COUNT W/DIF F eosinophils 0.5 % 1.0-7. 0 low Not Available [facility] (Lab) [address] [place], [address], 08/31/2024 11:18:30 08/31/2008/31/2024 CBC/C OMPLE TE BLD COUNT W/DIF F basophils 0.3 % 0.0-2. 0 Not Available [facility] (Lab) [address] [place], [address], 08/31/2024 11:18:30 08/31/2008/31/2024 CBC/C OMPLE TE BLD COUNT W/DIF F immature granulocytes 0.5 % 0.00-0 .50 Not Available [facility] (Lab) [address] [place], [address], 08/31/2024 11:18:30 08/31/2008/31/2024 CBC/C OMPLE TE BLD COUNT W/DIF F neutrophils, absolute count 5.82 x10'3 /uL 1.5-8. 0 Not Available [facility] (Lab) [address] [place], [address], 08/31/2024 11:18:30 10/25/20 24 08/31/2024 CBC/C OMPLE TE BLD COUNT W/DIF F lymphocytes, absolute count 0.87 x10'3 /uL 1.07-3 .43 low Not Available [facility] (Lab) [address] [place], [address], 08/31/2024 11:18:30 08/31/2008/31/2024 CBC/C OMPLE TE BLD COUNT W/DIF F monocytes, absolute count 0.60 x10'3 /uL 0.29-0 .99 Not Available [facility] (Lab) [address] [place], [address], 08/31/2024 11:18:30 08/31/2008/31/2024 CBC/C OMPLE TE BLD COUNT W/DIF F eosinophils, absolute count 0.04 x10'3 /uL 0.02-0 .53 Not Available [facility] (Lab) [address] [place], [address], 08/31/2024 11:18:30 08/31/20 24 08/31/2024 CBC/C OMPLE TE BLD COUNT W/DIF F basophils, absolute count 0.02 x10'3 /uL 0.01-0 .08 Not Available [facility] (Lab) [address] [place], [address], 08/31/2024 11:18:30 08/31/2008/31/2024 CBC/C OMPLE TE BLD COUNT W/DIF F immature granulocytes ,absolute 0.04 x10'3 /uL 0.00-0 .05 Not Available [facility] (Lab) [address] [place], [address], 08/31/2024 11:18:30 08/31/20 24 08/31/2024 CBC/C OMPLE TE BLD COUNT W/DIF F nucleated red blood cells 0.0 % -[address] [facility] (Lab) [address] [place], [address], 08/31/2024 11:18:30 08/31/2008/31/2024 CBC/C OMPLE TE BLD COUNT W/DIF F NRBC# 0.00 x10'3 /uL Not Available [facility] (Lab) [address] [place], [address], 08/31/2024 11:18:30 08/31/2008/31/2024 MICRO ALBUM IN RANDO M URINE microalbumin , urine 19.9 mg/L 0.0-16 .6 high Not Available [facility] (Lab) [address] [place], [address], 08/31/2024 11:40:26 08/31/2008/31/2024 LIPID PANEL cholesterol 151 mg/dL 140-19 9 NIH SHANA NSUS RECOM MENDA TION FOR VICKY STERO L: ADULT CHILD LOW RISK: <200 <170 BORDE RLINE : <200- 239 ----- HIGH RISK: >240 >200 Not Available [facility] (Lab) [address] [place], [address], 08/31/2024 11:43:16 08/31/2008/31/2024 LIPID PANEL triglyceride s 168 mg/dL 0-150 high NIH SHANA NSUS REPOR T RECOM MENDA TION FOR TRIGL YCERI VIOLETTA: ADULT CHILD LOW RISK: <150 ----- BODER LINE: 150-1 99 ----- HIGH RISK: >200 ----- Not Available [facility] (Lab) [address] [place], [address], 08/31/2024 11:43:16 08/31/2008/31/2024 LIPID PANEL HDL cholesterol 45 mg/dL 40- Not Available [facility] (Lab) [address] [place], [address], 08/31/2024 11:43:16 08/31/2008/31/2024 LIPID PANEL LDL cholesterol, [...] WILL NOT BE REPOR SHANNAN. Not Available [facility] (Lab) [address] [place], [address], 08/31/2024 11:43:16 08/31/2008/31/2024 COMPR EHENS DEANNA METAB OLIC PANEL sodium 138 mmol/ L 137-14 5 Not Available [facility] (Lab) [address] [place], [address], 08/31/2024 11:43:26 08/31/2008/31/2024 COMPR EHENS DEANNA METAB OLIC PANEL potassium 5.0 mmol/ L 3.5-5. 1 Not Available [facility] (Lab) [address] [place], [address], 08/31/2024 11:43:26 08/31/2008/31/2024 COMPR EHENS DEANNA METAB OLIC PANEL chloride 104 mmol/ L 98-107 Not Available [facility] (Lab) [address] [place], [address], 08/31/2024 11:43:26 08/31/20 24 08/31/2024 COMPR EHENS DEANNA METAB OLIC PANEL carbon dioxide 28 mmol/ L 22-30 Not Available [facility] (Lab) [address] [place], [address], 08/31/2024 11:43:26 08/31/20 24 08/31/2024 COMPR EHENS DEANNA METAB OLIC PANEL anion gap 11.0 mmol/ L 14-22 low Not Available [facility] (Lab) [address] [place], [address], 08/31/2024 11:43:26 08/31/20 24 08/31/2024 COMPR EHENS DEANNA METAB OLIC PANEL glucose 107 mg/dL 70-99 high Not Available [facility] (Lab) [address] [place], [address], 08/31/2024 11:43:26 08/31/2008/31/2024 COMPR EHENS DEANNA METAB OLIC PANEL BUN 16 mg/dL 8-19 Not Available [facility] (Lab) [address] [place], [address], 08/31/2024 11:43:26 08/31/20 24 08/31/2024 COMPR EHENS DEANNA METAB OLIC PANEL creatinine 0.76 mg/dL 0.66-1 .25 Not Available [facility] (Lab) [address] [place], [address], 08/31/2024 11:43:26 08/31/2008/31/2024 COMPR EHENS DEANNA METAB OLIC PANEL GFR >60 Refer ence Range : [place] ge GFR Healt hy Adult : >60 [...] on the F websi te: https ://fozia w.steve jeremy.o rg/pr ofess ional s/kdo qi/gf r_cal culat or Not Available [facility] (Lab) [address] [place], [address], 08/31/2024 11:43:26 08/31/2008/31/2024 COMPR EHENS DEANNA METAB OLIC PANEL alkaline phosphatase 64 U/L 38-126 Not Available [facility] (Lab) [address] [place], [address], 08/31/2024 11:43:26 08/31/2008/31/2024 COMPR EHENS DEANNA METAB OLIC PANEL alanine aminotransfe rase 17 U/L 0-[address] [facility] (Lab) [address] [place], [address], 08/31/2024 11:43:26 08/31/20 24 08/31/2024 COMPR EHENS DEANNA METAB OLIC PANEL aspartate aminotransfe rase 23 U/L 15-[address] [facility] (Lab) [address] [place], [address], 08/31/2024 11:43:26 08/31/2008/31/2024 COMPR EHENS DEANNA METAB OLIC PANEL bilirubin, total 0.80 mg/dL 0.20-1 .30 Not Available [facility] (Lab) [address] [place], [address], 08/31/2024 11:43:26 08/31/20 24 08/31/2024 COMPR EHENS DEANNA METAB OLIC PANEL calcium 9.4 mg/dL 8.4-10 .2 Not Available [facility] (Lab) [address] [place], [address], 08/31/2024 11:43:26 08/31/20 24 08/31/2024 COMPR EHENS DEANNA METAB OLIC PANEL total protein 6.0 g/dL 6.3-8. 2 low Not Available [facility] (Lab) [address] [place], [address], 08/31/2024 11:43:26 08/31/2008/31/2024 COMPR EHENS DEANNA METAB OLIC PANEL albumin 3.7 g/dL 3.0-4. 4 Not Available [facility] (Lab) [address] [place], [address], 08/31/2024 11:43:26 08/31/2008/31/2024 COMPR EHENS DEANNA METAB OLIC PANEL globulin 2.3 g/dL 2.6-4. 2 low Not Available [facility] (Lab) [address] [place], [address], 08/31/2024 11:43:26 08/31/2008/31/2024 COMPR EHENS DEANNA METAB OLIC PANEL A/G ratio 1.6 ratio 1.0-2. 0 Not Available [facility] (Lab) [address] [place], [address], 08/31/2024 11:43:26 08/31/2008/31/2024 TSH W/REF SAAD FT4 TSH with reflex free T4 0.684 uIU/m L 0.465- 4.680 Not Available [facility] (Lab) [address] [place], [address], 08/31/2024 12:03:05 08/31/20 24 08/31/2024 VITAM IN D 25-HY DROXY [id number] 24.1 NG/mL 30-100 low Vitam in D Statu s: Defic ient: <20 ng/mL Insuf ficie nt: 20-29 ng/mL Suffi cient : 30-10 0 ng/mL Not Available [facility] (Lab) [address] [place], [address], 08/31/2024 12:05:58 08/31/20 24 09/03/2024 HEMOG LOBIN A1C HA1C 5.9 % 4.0-6. 0 Diabe sal Scree elliott Crite jack: <5.7% Consi stent with absen ce of diabe sal 5.7-6 .4% Consi stent with incre ased risk for diabe sal (pred iabet es) >OR=6 .5% Consi stent with diabe sal REFER ENCE: Diabe sal Care 2016, 39(Zacarias ppl.1 ):s13 -s22 Not Available [facility] (Lab) [address] [place], [address], 09/03/2024 14:39:57 09/14/20 24 09/14/2024 imagi ng/di agnos tic resul t No observ ation record ed. [email or web address] [facility] [address] [facility] [address], [place], [address], 10/23/2024 09:07:00 09/18/20 24 09/18/2024 CT, angio gram, chest + abdom en + pelvi s, w/ contr ast No observ ation record ed. [email or web address] [facility] [address] [place], [address], 10/23/2024 09:08:31 09/27/20 24 09/27/2024 XR, chest , 2 view No observ ation record ed. [email or web address] [facility] [address] [place], [address], 10/23/2024 09:08:46 10/24/20 24 10/24/2024 US, liver [facility] [address] [place], [place] [id number] Patien t Name: MANNIE CABELLO Access ion #: [id number] Sex: M : 1949 4 Dictat ed By: Lashell Francisco Attend ing Physic franklyn: ALFONZO HEBERT Orderi ng Physic franklyn: JENN ALFONZO BLAIR Exam Date: 2023 06:58 AM Exam Name: [...] at 2023 07:51: 24 AM Page 1 [email or web address] [facility] [address] [place], [address], 11/27/2024 11:50:16 01/30/2001/29/2025 imagi ng/di agnos tic resul t No observ ation record ed. [facility] [address] [facility] [address], [place], [address], 2025 17:01:47 02/04/2002/0302/03/2025 imagi ng/di agnos tic resul t No observ ation record ed. [address], [place], [address], 02/03/2025 11:27:52 02/04/20 25 02/03/2025 imagi ng/di agnos tic resul t No observ ation record ed. [address], [place], [address], 02/03/2025 12:32:48 05/06/20 25 05/06/2025 imagi ng/di agnos tic resul t No observ ation record ed. [address], [place], [address], 05/06/2025 08:54:34 05/06/20 25 05/06/2025 imagi ng/di agnos tic resul t No observ ation record ed. [facility] [address], [place], [address], 05/06/2025 11:41:19 05/06/20 25 05/06/2025 imagi ng/di agnos tic resul t No observ ation record ed. [facility] [address], [place], [address], 05/06/2025 11:44:27 05/06/20 25 05/06/2025 imagi ng/di agnos tic resul t No observ ation record ed. [facility] [address], [place], [address], 05/06/2025 11:46:03 05/06/20 25 05/06/2025 imagi ng/di agnos tic resul t No observ ation record ed. [facility] [address], [place], [address], 05/06/2025 11:54:04 05/06/20 25 05/06/2025 imagi ng/di agnos tic resul t No observ ation record ed. [facility] [address], [place], [address], 05/06/2025 13:01:29 05/06/20 25 05/06/2025 imagi ng/di agnos tic resul t No observ ation record ed. [facility] [address], [place], [address], 05/06/2025 14:56:43 Result Notes None recorded. Problems Name Problem SNOMED Code Status Onset Date Resolution Date Notes Provider Name and Address Organization Details Recorded Time Osteoarthr itis of knee 931126324 Active Not Available [facility] 3 12:47:20 Arthropath y of joint of hand 888586340 Active Not Available [facility] 3 12:47:20 Osteoarthr itis 704952477 Active 2021 Not Available [facility] 3 12:47:20 Spinal stenosis of lumbar region 95411714 Active 2022 Not Available [facility] 3 12:47:20 Morbid obesity 058006955 Active 2022 Not Available [facility] 3 12:47:20 Low back pain 271165090 Active 2022 Not Available [facility] 3 12:47:20 Osteoarthr itis of right knee joint 1043804036898 00 Active 2022 BENNIE Luis null, [place] - [facility] 3 08:45:57 Coronary arterioscl erosis 17047463 Active 2022 Nahed bryant MD [address], [place], [address] , [facility] - [facility] 3 13:56:07 Type 2 diabetes mellitus without complicati on 081140736 Active 2022 Nahed bryant MD [address], [place], [address] , [place] [facility] 3 13:56:16 Hyperlipid emia 52190779 Active 2022 Nahed bryant MD [address], [place], [address] , [place] [facility] 3 13:56:56 Vitamin D deficiency 44661693 Active 2022 Nahed bryant MD [address], [place], [address] , [place] [facility] 3 14:07:39 Urinary incontinen ce 770484670 Active 2022 Nahed bryant MD [address], [place], [address] , [place] [facility] 3 14:23:53 Gastroesop hageal reflux disease without esophagiti s 556528493 Active 2022 Nahed bryant MD [address], [address], [place], [address] , [place] [facility] 3 14:24:14 Chronic pain 34061955 Active 2022 Nahed bryant MD [address], [place], [address] , [place] [facility] 3 14:24:54 Atrial fibrillati on 23470433 Active 2022 Nahed bryant MD [address], [place], [address] , [place] [facility] 3 14:25:54 Obstructiv e sleep apnea syndrome 79188857 Active 2022 Nahed bryant MD [address], [place], [address] , [place] [facility] 3 14:26:12 Bilateral osteoarthr itis of knees 3237160430852 07 Active 2022 Sarah Hima RMJose null, [place] - [facility] 3 08:33:04 Osteoarthr itis of left knee joint 1738401775410 09 Active 2022 Amaya MICH Beth null, [place] [facility] 3 08:49:55 Chronic diarrhea 998709977 Active 2023 Evelina Bets MA null, [place] [facility] 4 11:40:20 Proteinuri a 92620139 Active 2023 Nahed bryant MD [address], [place], [address] , [facility] - [facility] 4 17:27:16 Pain of left knee joint 6264765142212 07 Active 2023 Nahed bryant MD [address], [place], [address] , [facility] 4 09:36:49 Diarrhea 84453911 Active 2023 Nahed bryant MD [address], [place], [address] , [facility] 4 10:17:42 Chronic pain syndrome 701479137 Active 2023 Evelina Best MA null, [place] [facility] 4 14:16:46 Neuropathy 190934323 Active 2023 Nahed bryant MD [address], [place], [address] , [facility] - [facility] 4 15:37:24 Pruritic rash 62933621 Active 2023 Nahed bryant MD [address], [place], [address] , [facility] 4 09:27:08 Lesion of skin of face 161154907113 Active 2023 Nahed bryant MD [address] [address], [place], [address] , [facility] [employer] [facility] 4 09:29:33 Erectile dysfunctio n 412932330 Active 2023 Nahed bryant MD [address] [address], [place], [address] , [facility] [employer] [facility] 4 12:03:37 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 323962834 Active 2023 Rafael Mares MD [address] [facility], [address] [address], [place], [address] , [facility] [employer] [facility] 4 16:15:23 Paratrache al lymphadeno tierra 92024976 Active 2023 Mildred Fam CMA null, [facility] 4 09:52:03 Non-alcoho lic fatty liver 527615359 Active 2023 Mildred Fam CMA null, [facility] [employer] [facility] 4 09:56:45 Hepatomega ly 75111416 Active 2023 Mildred Fam CMA null, [facility] [employer] [facility] 4 16:09:09 Notes:Medical History: Anxie ty Rhinitis with postnasal drip Obesity with very sevre OSAHS, AHI = 49, 01/22/16, off autoCPAP Hypertension Hyperlipidemia T2DM with neuropathy CAD s/p KS ZACK Urge urinary incontinence BPH RLS Gout Knee/Hand OA on hydrocodone Procedure History: T&A 195 CABG 1993 AVR 2004 Gastric sleeve surgery 2016 Problem Notes None recorded. Procedures Surgical History Date Name Laterality Status Provider Name and Address Organization Details Recorded Time 03/16/20 24 Pacemaker completed BENNIE Saldivar [facility] [employer] [facility] 04/26/2024 09:09:47 01/26/20 Medicare Wellness CPT Code, subsequent completed Eusebia Taylor [place] - [facility] 01/26/2024 10:46:49 11/07/19 00 bariatric operative procedure completed Bibiana Manzano [facility] 09/12/2024 14:14:45 open heart surgery completed Valarie Reed Jose [facility] 10/20/2023 14:17:29 Knee Replacement completed Valarie Reed [facility] 10/20/2023 14:06:52 Knee completed Valarie Reed [facility] 10/20/2023 14:07:29 Tonsillectomy completed Valarie Merrittham [facility] 10/20/2023 14:07:35 Imaging Results None recorded. Procedure Notes None recorded. Medical Equipment None Reported. Allergies No known drug allergies Medications Name Sig Start Date Stop Date Status Note LastModified by Organization Details LastModified Time amoxicillin 500 mg capsule TAKE 4 CAPSULES BY MOUTH ONE DOSE 1 HOUR PRIOR TO PROCEDURE active Not Available Not Available No t [...] TAKE 1 TABLET BY MOUTH ONCE A WEEK active Not Available Not Available No [...] Available sildenafil 100 mg tablet TAKE 1 TABLET BY MOUTH TWICE A WEEK NEEDED FOR 90 DAYS active Not Available Not Available No t Available triamcinolo ne acetonide 0.1 % topical [...] 0.4 mg capsule TAKE 2 CAPSULES BY MOUTH EVERY DAY 2024 active Not Available Not Available Not Avai lable dipyridamol e 75 mg tablet TAKE 1 TABLET BY MOUTH FOUR TIMES A DAY active Not Available Not Available No t Available [employer] Ultra Test strips USE TO TEST TWICE DAILY active Not Available Not Available No t Available Kenalog 10 mg/mL suspension for injection in office 01/25 completed [facility]: 0003- [phone]- 20 Not Available Not Available Not Available doxycycline monohydrate 100 mg capsule TAKE 1 CAPSULE BY MOUTH TWICE A DAY FOR 7 DAYS 12/30 completed Not Available Not Available Not Available hydrocodone 7.5 mg-acetamin ophen 325 mg tablet TAKE 1 TABLET BY MOUTH ONCE TO TWICE DAILY NEEDED active Not Available Not Available No t Available ropinirole 2 mg tablet TAKE 1 TABLET BY MOUTH AT BEDTIME NEEDED active Not Available Not Available No [...] Available warfarin 5 mg tablet TAKE 1 AND 1/2 TABLET BY MOUTH EVERY EVENING active Not Available Not Available No t [...] Not Available Not Available No t Available ergocalcife rol (vitamin D2) 1,250 mcg [...] administe red by the provider 11/10 completed [facility] N[facility]: [phone]- [phone]- [phone] Not Available Not Available Not Available tramadol ER 100 mg tablet,exte nded release 24 hr Take 1 tablet twice a day by oral route. 08/15 completed Not Available Not Available Not Available Januvia 100 mg tablet TAKE 1 TABLET BY MOUTH EVERY DAY 12/30 completed Not Available Not Available Not Available cholecalcif tianna (vitamin D3) 1,250 mcg (50,000 unit) capsule TAKE 1 CAPSULE BY MOUTH ONE TIME PER WEEK FOR 90 DAYS active Not Available Not Available No t Available Cholestyram ine Light 4 gram oral [...] office procedure , administe red by provider 12/154 completed [facility] N[facility] [phone] -[phone] Not Available Not Available Not [...] INJECT 0.25MG UNDER THE SKIN ONCE WEEKLY [id number] THEN INCREASE TO 0.5MG ONCE WEEKLY [id number] 10/20 completed Not Available Not Available Not [...] COVID-19 Ag [facility] S 10/20 completed [...] verbal numeric rating [Score] - Reported Systolic And Diastolic Provider Name and Address Organization Details Last Updated DateTime 5 172.72 cm 36.6 kg/m2 101028. 76 g 97.4 [degF] 89 /min 98 % 98 % 5 120/60 mm[Hg] Diane Clarke MA [facility] Interview [facility] 5 09:06:59 Date Recorded Body height Body temperature Heart rate Oxygen saturation Oxygen saturation in Arterial blood by Pulse oximetry Systolic And Diastolic Provider Name and Address Organization Details Last Updated DateTime 5 172.72 cm 97.2 [degF] 85 /min 97 % 97 % 116/93 mm[Hg] Bibiana Manzano [facility] 5 15:36:18 Date Recorded Body height Body mass index (BMI) Body weight Body temperature Heart rate Oxygen saturation Oxygen saturation in Arterial blood by Pulse oximetry Pain severity - 0-10 verbal numeric rating [Score] - Reported Systolic And Diastolic Provider Name and Address Organization Details Last Updated DateTime 5 172.72 cm 35.5 kg/m2 274674. 82 g 97.7 [degF] 84 /min 98 % 98 % 0 110/62 mm[Hg] Diane Clarke MA [facility] Interview [facility] 5 09:13:00 Date Recorded Body height Body mass index (BMI) Body weight Body temperature Pain severity - 0-10 verbal numeric rating [Score] - Reported Heart rate Oxygen saturation Oxygen saturation in Arterial blood by Pulse oximetry Systolic And Diastolic Provider Name and Address Organization Details Last Updated DateTime 5 172.72 cm 36 kg/m2 004663. 39 g 97.3 [degF] 0 85 /min 97 % 97 % 112/60 mm[Hg] Diane Clarke MA [facility] 5 09:19:36 Date Recorded Body height Body mass index (BMI) Body weight Body temperature Oxygen saturation Oxygen saturation in Arterial blood by Pulse oximetry Heart rate Systolic And Diastolic Provider Name and Address Organization Details Last Updated DateTime 4 172.72 cm 37.6 kg/m2 440950. 32 g 97.3 [degF] 96 % 96 % 85 /min 132/73 mm[Hg] Bibiana Manzano [facility] 4 14:13:00 Social History Question Answer Notes LastModified by Organizat ion Details LastModified Time Tobacco Smoking Status Never Smoker Not Available [facility] 01/05/2023 12:45:57 Do You Have An [...] Type Of Diet Are You Following? REGULAR [id number] Information not available 01/05/2023 What Is The Highest Grade Or Level Of School You Have Completed Or The Highest Degree You Have Received? [id number] Information not available 10/20/2023 Do You Have An Electrostatic Air Filter? No MIGRATION.35023 [id number] Information not available 01/05/2023 Have There Been Any Changes To Your Family Or Social Situation? No [place] Information no t available 04/16/2024 What Is The Fluoride Status Of Your Home? Unknown Information not available 10/20/2023 Are There Any Guns Present In Your Home? Yes [id number].[id number] Information not available 01/05/2023 Do You Have A Humidifier? Yes MIGRATION.83503 [id number] Information not available 01/05/2023 Do You Use Insect Repellent Routinely? No Information not available 12/06/2024 Where Do You Live? [place] MIGRATION.66236 [id number] Information not available 01/05/2023 Do You Have A Medical Power Of Client Success Specialist? Yes Information not available 10/20/2023 Do You Have Moisture Problems In Your Home? No MIGRATION.21479 14872 Information not available 01/05/2023 What Was The Date Of Your Most Recent Tobacco Screening? 07/18/2025 Information not available 07/18/2025 Do You Have Any Pets? Yes MIGRATION.90123 25946 Information not available 01/05/2023 What Is Your Relationship Status? Information not available 10/20/2023 Do You Use Your Seat Belt Or Car Seat Routinely? Yes Information not available 10/20/2023 Do You Have Smoke And Carbon Monoxide Detectors In Your Home? Yes MIGRATION.54948 [id number] Information not available 01/05/2023 Are You Passively Exposed To Smoke? No MIGRATION.84071 68789 Information not available 01/05/2023 Are There Any Smokers In Your House? No Information not available 10/20/2023 Do You Use Sunscreen Routinely? No MIGRATION.44762 17825 Information not available 01/05/2023 Has Tobacco Cessation Counseling Been Provided? No N/a Information not available 10/20/2023 Have You Recently Traveled Abroad? No MIGRATION.81438 68730 Information not available 01/05/2023 Do You Have Difficulty Walking Or Climbing Stairs? Yes Information not available 10/20/2023 Do You Have Any Dietary Restrictions? No MIGRATION.03872 02178 Information not available 01/05/2023 Sex: Male Functional Status Question Answer Note LastModified by Organizat ion Details LastModified Time Do you use any illicit or recreational drugs? No Information not available 10/20/2023 Do you or have you ever used any other forms of tobacco or nicotine? No Information not available 10/20/2023 What is your level of alcohol consumption? 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 No Information not available 01/26/2024 Are you able to walk independently without assistance or assistive devices? YESASSIST usually uses cane Information not available 10/20/2023 Do you have difficulty doing errands alone? No Information not available 10/20/2023 Are you able to care for yourself independently? Yes Information not available 10/20/2023 Do you have difficulty dressing, bathing, grooming, or toileting? Yes Information not available 10/20/2023 What is your exercise level? Occasional [email or web address] Information not available 01/26/2024 Mental Status Question Answer Note LastModified by Organizat ion Details LastModified Time Do you feel stressed (tense, restless, nervous, or anxious, or unable to sleep at night)? [id number] Information not available 10/20/2023 Do you have difficulty concentrating, remembering or making decisions? No Information no t available 10/20/2023 Family History Relationship Description Onset Age of this Age Resolved Age Notes LastModified by Organization Details LastModified Time Father Heart disease MIGRATION.865 [id number] Not available 01/05/2023 12:45:59 Father Hypertensive disorder MIGRATION.516 [id number] Not available 01/05/2023 12:45:59 Father Diabetes mellitus MIGRATION.245 [id number] Not available 01/05/2023 12:45:59 Medical History Condition [...] N ATRIAL FIBRILLATION Y AUTOIMMUNE DISEASE N Immunizations Vaccine Type Date Status Note Provider Nam e and Address Organization Details Recorded Time Influenza, high-dose, quadrivalent, PF 0 completed Not Available [facility] 07/18/2025 09:12:04 COVID-19, mRNA, LNP-S, PF, 100 mcg/0.5mL dose or 50 mcg/0.25mL dose 1 completed Not Available [facility] 07/18/2025 09:12:04 COVID-19, mRNA, LNP-S, PF, 100 mcg/0.5mL dose or 50 mcg/0.25mL dose 1 completed Not Available [facility] 07/18/2025 09:12:04 Influenza, high-dose, quadrivalent, PF 1 completed Not Available [facility] 07/18/2025 09:12:04 COVID-19, mRNA, LNP-S, PF, 100 mcg/0.5mL dose or 50 mcg/0.25mL dose 1 completed Not Available [facility] 07/18/2025 09:12:04 Influenza, high-dose, quadrivalent, PF 2 completed Not Available [facility] 07/18/2025 09:12:04 COVID-19, mRNA, LNP-S, bivalent, PF, 30 mcg/0.3 mL dose 2 completed Not Available [facility] 07/18/2025 09:12:04 Influenza, adjuvanted, quadrivalent, PF 3 completed Not Available [facility] 07/18/2025 09:12:04 COVID-19, mRNA, LNP-S, PF, marisa-sucrose, 30 mcg/0.3 mL 3 completed Not Available [facility] 07/18/2025 09:12:04 Pneumococcal conjugate PCV20, polysaccharide MGR486 conjugate, adjuvant, PF 3 completed Not Available [facility] 07/18/2025 09:12:04 zoster recombinant 3 completed Not Available [facility] 07/18/2025 09:12:04 zoster recombinant 4 completed Not Available [facility] 07/18/2025 09:12:04 RSV, recombinant, protein subunit RSVpreF, adjuvant reconstituted, 0.5 mL, PF 4 completed Not Available [facility] 07/18/2025 09:12:04 Influenza, high-dose, trivalent, PF 4 completed Not Available [facility] 07/18/2025 09:12:04 COVID-19, mRNA, LNP-S, PF, marisa-sucrose, 30 mcg/0.3 mL 4 completed Not Available [facility] 07/18/2025 09:12:04 Past Encounters Encounter ID Performer Location Encounter Start Date Encounter Closed Date Diagnosis/Indication Diagnosis SNOMED-CT Code Diagnosis ICD10 Code Diagnosis IMO Codes Diagnosis Note [id number] OSMAR Suarez [facility] [place] [address] [place] [address] 02/18/2021 00:00:00 02/18/2021 11:32:06 [id number] Jorge Richard MD [facility] [place] [address] [place] [address] 06/19/2021 00:00:00 06/19/2021 14:55:34 [id number] MD MARY KATE [facility] [address] [address] 11/17/2021 00:00:00 11/17/2021 15:32:34 [id number] MD MARY KATE [facility] [address] [address] 01/12/2022 00:00:00 01/12/2022 10:01:46 [id number] MD MARY KATE Scott[facility] [place] [address] [place] [address] 2022 00:00:00 2022 14:19:26 [id number] MD MARY KATE [facility] [place] [address] [place] [address] 05/26/2022 00:00:00 05/26/2022 15:15:44 [id number] MD MARY KATE [facility] [address] [place] [address] 08/10/2022 00:00:00 08/10/2022 10:20:52 [id number] MD MARY KATE [facility] [place] [address] [place] [address] 09/08/2022 00:00:00 09/08/2022 09:38:15 [id number] MD MARY KATE Cardoza[facility] [place] [address] [place] [address] 11/25/2022 00:00:00 11/25/2022 09:19:23 [id number] MD MARY KATE [facility] [place] [address] [place] [address] 12/17/2022 00:00:00 12/17/2022 10:08:24 [id number] MD MARY KATE [facility] [place] [address] [place] [address] 12/23/2022 00:00:00 12/23/2022 09:20:24 [id number] Ray García MD [facility] [place] [address] [place] [address] 12/30/2022 00:00:00 12/30/2022 09:33:05 [id number] Jorge Richard MD [facility] [place] [address] [place] [address] 03/25/2023 08:38:13 03/25/2023 09:26:01 Osteoarthritis of right knee joint 4054372484 47981 M17.11 [id number] Jorge Richard MD [facility] [place] [address] [place] [address] 06/24/2023 08:44:09 06/24/2023 09:15:28 Osteoarthritis of right knee joint 5207353874 35942 M17.11 [id number] Nahed bryant MD [facility] Internal Med [address] [facility] [place] [address] 10/20/2023 13:47:19 10/20/2023 15:03:58 Screening - NAD 251885305 Z13.9 C-scope: Get yearly flu shotGet TdapGet Shingrix vaccineGet PCV #20Get COVID 19 vaccineGet RSV vaccine RTC in 3 months, do labs ER if worse, he did verbalize his understand ing of the above Coronary arteriosclerosis 98514114 I25.10 On ASAOn dipyridamo le 75mg qidOn isosorbide ER 30mg dailyOn NTGOn sotalol 80mg bidOn torsemide 20mg dailyOn valsartan 160mg bidOn warfarin Sees Dr Wyman, INR to be done by [facility] 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 987351795 E11.9 On jardiance 10mg dailyOn metformin 1000mg dailyOn Ozempic 2mg weekly Get labs Hyperlipidemia 55046897 E78.5 Screening for malignant neoplasm of prostate 604698199 Z12.5 Vitamin D deficiency 347 93108 E55.9 Urinary incontinence 165 174797 R32 On finasterid e 5mg daily Gastroesop hageal reflux disease without esophagitis 166269059 K21.9 On pantoprazo le 40mg dailyGet EGD done Chronic pain 85394372 G8 9.29 Advised not to take any NSAIDs!Nee ds to see pain management , unable to provide any opiates or controlled substances Atrial fibrillation 4943 6004 I48.[address] Wyman Obstructiv e sleep apnea syndrome 18924239 G47.33 Screening for malignant neoplasm of colon 719918077 Z12.11 [id number] Jorge Richard MD [facility] [place] [address] [place] [address] 10/26/2023 08:26:07 10/26/2023 09:13:32 Osteoarthritis of right knee joint 5637524206 67014 M17.11 [id number] Nahed bryant MD [facility] Internal Med [facility] [address] [facility], [facility] [address] [place] [address] 01/26/2024 08:52:47 01/26/2024 10:22:16 Screening - NAD 561461311 Z13.9 C-scope: Get this done Get yearly flu shotGet TdapGet Shingrix vaccineGet PCV #20Get COVID 19 vaccineGet RSV vaccine RTC in 3 months, do labs ER if worse, he did verbalize his understand ing of the above Coronary arteriosclerosis 61748327 I25.10 ECHO 01/05/2024 : In a fib On ASAOn dipyridamo le 75mg qidOn isosorbide ER 30mg dailyOn NTGOn sotalol 80mg bidOn torsemide 20mg dailyOn valsartan 160mg bidOn warfarin Sees Dr Wyman, INR to be done by [facility] 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 389632120 E11.9 On jardiance 10mg dailyNot on metformin 1000mg dailyNot on Ozempic 2mg weekly, stopped by Dr Wyman 01/12/2024 , d/t diarrhea Get labs Hyperlipidemia 32596330 E78.5 On atorvastat in 40mg dailyGet labs Vitamin D deficiency 347 57522 E55.9 Urinary incontinence 165 700530 R32 On finasterid e 5mg daily Gastroesop hageal reflux disease without esophagitis 238388072 K21.9 On pantoprazo le 40mg dailyGet EGD done Chronic pain 76867770 G8 9.29 Advised not to take any NSAIDs!Nee ds to see pain management , unable to provide any opiates or controlled substances OV 01/26/2024 :[facility] pain management 11/17/2023 His hydrocodon e was not prescribed , and this did coincide with his diarrhea, may be withdrawal ? Atrial fibrillation 4943 [address] I48.[address] Wyman Obstructiv e sleep apnea syndrome 56170424 G47.33 Dr Tyson 08/10/2022 Screening for malignant neoplasm of colon 318715604 Z12.11 Proteinuria 46310750 R80 .9 On [facility] eds to see nephrology Pain of le ft knee joint 7158689402 17794 M25.562 José Miguel PRASAD 01/25/2024 , s/p kenalog Diarrhea 53427360 R19.7 Has stopped the metformin, ozempicHis opiates were not renewed by pain management Also stop the iron tabsMay need to be on cholestyra mine or take lomotil as neededIf not better then see GI Adult heal th examination 982131307 Z00.00 Screening for disorder 459603506 Z13.9 [id number] Jorge Richard MD [facility] [place] [address] [place] [address] 01/25/2024 08:59:32 01/25/2024 11:45:22 Osteoarthritis of left knee joint 6796500441 09272 M17.12 [id number] Nahed bryant MD [facility] Internal Med [facility] [address] [place] [address] 04/16/2024 08:54:53 04/16/2024 09:30:32 Screening - NAD 303870510 Z13.9 C-scope: Get this done Get yearly flu shotGet TdapGet Shingrix vaccineGet PCV #20Get COVID 19 vaccineGet RSV vaccine RTC in 2 months, do labs ER if worse, he did verbalize his understand ing of the above Coronary arteriosclerosis 34296046 I25.10 ECHO 01/05/2024 : In a fib On ASAOn dipyridamo le 75mg qidOn isosorbide ER 30mg dailyOn NTGOn sotalol 80mg bidOn torsemide 20mg dailyOn valsartan 160mg bidOn warfarin Sees Dr Wyman, INR to be done by [facility] 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 500315859 E11.9 On jardiance 10mg dailyNot on metformin 1000mg dailyNot on Ozempic 2mg weekly, stopped by Dr Wyman 01/12/2024 , d/t diarrhea Get labs Hyperlipidemia 02528389 E78.5 On atorvastat in 40mg dailyGet labs Vitamin D deficiency 347 60337 E55.9 Urinary incontinence 165 941895 R32 On finasterid e 5mg daily Gastroesop hageal reflux disease without esophagitis 063050470 K21.9 On pantoprazo le 40mg dailyGet EGD done Chronic pain 02337489 G8 9.29 Advised not to take any [...] Dr Wyman Obstructiv e sleep apnea syndrome 95182517 G47.33 Dr Tyson 08/10/2022 Screening for malignant neoplasm of colon 793334797 Z12.11 Proteinuria 15596532 R80 .9 On [facility] eds to see nephrology Pain of le ft knee joint 0704203062 37372 M25.562 José Miguel PRASAD 01/25/2024 , s/p kenalog Diarrhea 21217806 R19.7 Has stopped the metformin, ozempicHis opiates were not renewed by pain management Also stop the iron tabsMay need to be on cholestyra mine or take lomotil as neededIf not better then see GI OV 04/16/2024 :On cholestyra minaShould see GI to determine the cause of the diarrhea Neuropathy 461175656 G62 .9 Sees his practical nurse clinical coordinator Is on qutenza (capsacin) Pruritic rash 64784750 L 28.2 Lesion of skin of face 4843989409 06 L98.9 [facility] noted on the L scalp and R mid neck [id number] Nahed bryant MD [facility] Internal Med [facility] [address] [facility], [address] [place] [address] 04/26/2024 08:23:58 04/26/2024 09:38:30 Screening - NAD 905908105 Z13.9 C-scope: Get this done Get yearly flu shotGet TdapGet Shingrix vaccineGet PCV #20Get COVID 19 vaccineGet RSV vaccine RTC in 2 months, do labs ER if worse, he did verbalize his understand ing of the above Coronary arteriosclerosis 26572522 I25.10 ECHO 01/05/2024 : In a fibUS carotid 02/02/2024 On ASAOn coregOn dipyridamo le 75mg qidOn isosorbide ER 30mg dailyOn NTGNot on sotalol 80mg bidOn torsemide 20mg dailyNot on valsartan 160mg bid, d/c 04/12/2024 On entresto 97-103mg bid Dr Wyman 04/12/[address] Wyman, INR to be done by [facility] 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 142151331 E11.9 On jardiance 10mg dailyNot on metformin 1000mg dailyNot on Ozempic 2mg weekly, stopped by Dr Wyman 01/12/2024 , d/t diarrhea Get labs Hyperlipidemia 20725685 E78.5 On atorvastat in 40mg dailyGet labs Vitamin D deficiency 347 29144 E55.9 Urinary incontinence 165 097874 R32 On finasterid e 5mg daily Gastroesop hageal reflux disease without esophagitis 464143714 K21.9 On pantoprazo le 40mg dailyGet EGD done, has seen Dr Spears Chronic pain 29825871 G8 9.29 Advised not to take any [...] Dr Wyman Obstructiv e sleep apnea syndrome 01436110 G47.33 Dr Tyson 08/10/2022 Proteinuria 61034931 R80 .[address] Ruiz 03/27/2024 Pain of le ft knee joint 4996749654 14420 M25.562 José Miguel PRASAD 01/25/2024 , s/p kenalog Diarrhea 41039163 R19.7 Has stopped the metformin, ozempicHis opiates were not renewed by pain management Also stop the iron tabsMay need to be on cholestyra mine or take lomotil as neededIf not better then see GI OV 04/16/2024 :On cholestyra minaShould see GI to determine the cause of the diarrhea OV 04/26/2024 :Dr Spears 04/11/2024 , to get EGD and C-scope Neuropathy 791866546 G62 .9 Sees his practical nurse clinical coordinator Is on qutenza (capsacin) Pruritic rash 26624323 L 28.2 Has noted a rash underneath the abdominal fold, none today, but has used clot-betam ethasone in the past with good reliefRene w the clotrimazo le-betamet hasone cream Lesion of skin of face 4409360484 06 L98.9 [facility] noted on the L scalp and R mid neck [id number] Nahed bryant MD [facility] Internal [facility] [address] [facility] [address] [place] [address] 06/05/2024 14:41:48 06/05/2024 15:28:55 Screening - NAD 491181681 Z13.9 C-scope: Get this done Get yearly flu shotGet TdapGet Shingrix vaccineGet PCV #20Get COVID 19 vaccineGet RSV vaccine RTC in 3 months, do labs ER if worse, he did verbalize his understand ing of the above Coronary arteriosclerosis 77254562 I25.10 ECHO 01/05/2024 : In a fibUS carotid 02/02/2024 On ASAOn coreg 3.125mg bidOn dipyridamo le 75mg qidOn isosorbide ER 30mg dailyOn NTGNot on sotalol 80mg bidOn torsemide 20mg dailyNot on valsartan 160mg bid, d/c 04/12/2024 On entresto 97-103mg bid Dr Wyman 04/12/[address] Wyman, [facility] done by Dr Wyman as per his history 06/05/2024 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 040875234 E11.9 On jardiance 10mg dailyNot on metformin 1000mg dailyBack on Ozempic 2mg weekly as he feels that his diarrhea has improved, advised to stop if getting any procedure 06/05/2024 Get labs Hyperlipidemia 12710150 E78.5 On atorvastat in 40mg dailyGet labs Vitamin D deficiency 347 33610 E55.9 Urinary incontinence 165 098087 R32 On finasterid e 5mg dailyOn flomax renewed 06/05/2024 Gastroesop hageal reflux disease without esophagitis 416283118 K21.9 On pantoprazo le 40mg dailyGet EGD done, has seen Dr Spears Chronic pain 37964751 G8 9.29 Advised not to take any [...] Dr Wyman Obstructiv e sleep apnea syndrome 15252017 G47.33 Dr Tyson 08/10/2022 Proteinuria 30016836 R80 .9 Not on kerendiaDr Ruiz 03/27/2024 Pain of le ft knee joint 9967770682 02750 M25.562 José Miguel PRASAD 01/25/2024 , s/p kenalog Diarrhea 41501965 R19.7 Has stopped the metformin, ozempicHis opiates [...] 06/05/2024 : Get EGD and C-scope Neuropathy 176781880 G62 .9 Sees his practical nurse clinical coordinator Is on qutenza (capsacin) Pruritic rash 49585038 L 28.2 Has noted a rash underneath the abdominal fold, none today, but has used clot-betam ethasone in the past with good reliefRene w the clotrimazo le-betamet hasone cream as needed Lesion of skin of face 4462301663 06 L98.9 [facility] hype[facility] lesion noted on the L scalp and R mid neck [id number] Nahed bryant MD [facility] Internal Med [facility] [address] [facility], [facility] [address] [place] [address] 09/04/2024 11:32:25 09/04/2024 12:23:42 Screening - NAD 311734513 Z13.9 C-scope: Get this done Get yearly flu shotGet TdapGet Shingrix vaccineGet PCV #20Get COVID 19 vaccineGet RSV vaccine RTC in 3 months, do labs ER if worse, he did verbalize his understand ing of the above Coronary arteriosclerosis 10312541 I25.10 ECHO 01/05/2024 : In a fibUS carotid 02/02/2024 HC 08/21/2024 : HV Dr Jenkins On ASANot on coreg 3.125mg bidOn dipyridamo le 75mg qidNot on isosorbide ER 30mg dailyOn NTGNot on sotalol 80mg bidOn torsemide 20mg dailyNot on valsartan 160mg bid, d/c 04/12/2024 On entresto 49-51mg bid Dr Spencer warfarin Sees Dr Zamzam britt OV 08/09/2024 , referred Dr Wise 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 898012732 E11.9 On jardiance 10mg dailyNot on metformin 1000mg dailyBack on Ozempic 2mg weekly as he feels that his diarrhea has improved, advised to stop if getting any procedure 06/05/2024 Get labs Hyperlipidemia 54834059 E78.5 On atorvastat in 40mg dailyGet labs Vitamin D deficiency 347 15043 E55.9 Urinary incontinence 165 835628 R32 On finasterid e 5mg dailyOn flomax renewed 06/05/[address] Mares 09/04/2024 Gastroesop hageal reflux disease without esophagitis 779445441 K21.9 On pantoprazo le 40mg dailyGet EGD done, has seen Dr Spears Chronic pain 92676210 G8 9.29 Advised not to take any [...] Dr Wyman Obstructiv e sleep apnea syndrome 14904886 G47.33 Dr Tyson 08/10/2022 Proteinuria 72095652 R80 .9 On kerendiaLo w protein, more protein in diet and see nephrology Dr Ruiz 03/27/2024 Pain of le ft knee joint 4378345462 57049 M25.562 José Miguel PRASAD 01/25/2024 , s/p kenalog Diarrhea 87253782 R19.7 Has stopped the metformin, ozempicHis opiates [...] : To get EGD and C-scope Neuropathy 787122718 G62 .9 Sees his practical nurse clinical coordinator Is on qutenza (capsacin) Pruritic rash 02473871 L 28.2 Has noted a rash underneath the abdominal fold, none today, but has used clot-betam ethasone in the past with good reliefRene w the clotrimazo le-betamet hasone cream as needed Lesion of skin of face 9643148581 06 L98.9 Sees his dermatolog ist in [place] , [facility] hyperemic lesion noted on the L scalp and R mid neck Erectile dysfunction 860 678130 F52.21 On sildenafil Does well [id number] Rafael Mares MD [facility] Urology [address] [place] [address] 09/12/2024 13:53:44 09/12/2024 15:13:23 Urinary incontinence 099086838 R32 Benign pro static hyperplasia with outflow obstruction 787998524 N40.1 [id number] Nahed bryant MD [facility] Internal Med [facility] [address] [facility] [facility] [address] [place] [address] 12/06/2024 09:01:34 12/06/2024 09:45:25 Screening - NAD 574121799 Z13.9 C-scope: As per Dr Spears, EGD/C-scop e: 08/17/2024 Get yearly flu shotGet TdapGet Shingrix vaccineGet PCV #20Get COVID 19 vaccineGet RSV vaccine RTC in 3 months, do labs ER if worse, he did verbalize his understand ing of the above Coronary arteriosclerosis 59571779 I25.10 ECHO 01/05/2024 : In a fibUS [...] 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 858390001 E11.9 On jardiance 10mg dailyNot on metformin 1000mg dailyBack on Ozempic 2mg weekly as he feels that his diarrhea has improved, advised to stop if getting any procedure 06/05/2024 Get labs Hyperlipidemia 55925765 E78.5 On atorvastat in 40mg dailyGet labs Vitamin D deficiency 347 12793 E55.9 Urinary incontinence 165 315935 R32 On finasterid e 5mg dailyOn flomax renewed 06/05/2024 Dr Mares 09/12/2024 Gastroesop hageal reflux disease without esophagitis 944742674 K21.9 On pantoprazo le 40mg dailyGet EGD done, has seen Dr Spears Chronic pain 00075215 G8 9.29 Advised not to take any [...] Dr Wyman Obstructiv e sleep apnea syndrome 18635586 G47.33 Dr Tyson 08/10/2022 Proteinuria 84831963 R80 .9 On kerendiaLo w protein, more protein in diet and see nephrology Dr Ruiz 03/27/2024 Pain of le ft knee joint 9755777404 84658 M25.562 José Miguel PRASAD 01/25/2024 , s/p kenalog Diarrhea 66839577 R19.7 Has stopped the metformin, ozempicHis opiates [...] 12/06/2024 : Dr Spears 11/16/2024 OV Neuropathy 448682870 G62 .9 Sees his practical nurse clinical coordinator Is on qutenza (capsacin) Pruritic rash 10923887 L 28.2 Has noted a rash underneath the abdominal fold, none today, but has used clot-betam ethasone in the past with good reliefRene w the clotrimazo le-betamet hasone cream as needed Lesion of skin of face 7722536749 06 L98.9 Sees his dermatolog ist in [place] , [facility] hyperem[facility] lesion noted on the L scalp and R mid neck Erectile dysfunction 860 353909 F52.21 On sildenafil Does well Paratrache al lymphadenopathy 69503912 R59.0 Dr Ruiz 11/01/2024 : f/u in [address] scan [id number] Rafael Marse MD [facility] [address] [facility] [address] [place] [address] 12/14/2024 15:01:37 12/14/2024 16:00:20 Urinary incontinence 582656928 R32 Benign pro static hyperplasia with outflow obstruction 455511273 N40.1 [id number] Nahed bryant MD [facility] Internal Med [facility] [address] [facility] [address] [place] [address] 04/16/2025 09:05:19 04/16/2025 09:43:53 Screening - NAD 662295350 Z13.9 C-scope: As per Dr Spears, EGD/C-scop e: 08/17/2024 Get yearly flu shotGet TdapGet Shingrix vaccineGet PCV #20Get COVID 19 vaccineGet RSV vaccine RTC in 3 months, do labs ER if worse, he did verbalize his understand ing of the above Coronary arteriosclerosis 89722637 I25.10 ECHO 01/05/2024 : In a fibUS carotid 02/02/2024 HC 08/21/2024 : HV Dr Jenkins Not on coreg 3.125mg bidNot on isosorbide ER 30mg dailyNot on sotalol 80mg bidNot on valsartan 160mg bid, d/c 04/12/2024 On ASAOn dipyridamo le 75mg qidOn NTGOn torsemide 20mg dailyOn entresto 97-103mg bid given by Jonah Momin 03/25/[address] Wyman last OV 08/09/2024 , referred Dr Katlheen Wyman 09/27/2024 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 655931133 E11.9 On jardiance 10mg dailyNot on metformin 1000mg dailyOn Ozempic 2mg weekly as he feels that his diarrhea has improved, advised to stop if getting any procedure 06/05/2024 Get labs Hyperlipidemia 17935414 E78.5 On atorvastat in 40mg dailyGet labs Vitamin D deficiency 347 60884 E55.9 Urinary incontinence 165 113421 R32 On finasterid e 5mg dailyOn flomax renewed 06/05/2024 Dr Mares 09/12/2024 Gastroesop hageal reflux disease without esophagitis 260920979 K21.9 On pantoprazo le 40mg dailyGet EGD done, has seen Dr Spears Chronic pain 41032879 G8 9.29 Advised not to take any [...] Dr Wyman Obstructiv e sleep apnea syndrome 57374700 G47.33 Dr Tyson 08/10/2022 Proteinuria 72602579 R80 .9 On kerendiaLo w protein, more protein in diet and see nephrology Dr Ruiz 03/27/2024 Pain of le ft knee joint 5376449402 19914 M25.562 José Miguel Mcduffie PA 01/25/2024 , s/p kenalog Diarrhea 03868010 R19.7 Has stopped the metformin, ozempicHis opiates [...] 12/06/2024 : Dr Spears 11/16/2024 OV Neuropathy 059749620 G62 .9 Sees his practical nurse clinical coordinator Is on qutenza (capsacin) Pruritic rash 76335753 L 28.2 Has noted a rash underneath the abdominal fold, none today, but has used clot-betam ethasone in the past with good reliefRene w the clotrimazo le-betamet hasone cream as needed Lesion of skin of face 2228036139 06 L98.9 Sees his dermatolog ist in [place] , [facility] hyperemic lesion noted on the L scalp and R mid neck Erectile dysfunction 860 540344 F52.21 On sildenafil Does well Paratrache al lymphadenopathy 73213165 R59.0 Dr Ruiz 11/01/2024 : f/u in [address] scanDr Joseph 02/08/2025 : Repeat the CT in 3 months [id number] Nahed bryant MD [facility] Internal Med [address], [address] [place] [address] 07/18/2025 09:09:52 07/18/2025 09:43:40 Screening - NAD 236609229 Z13.9 C-scope: As per Dr Spears, EGD/C-scop e: 08/17/2024 Get yearly flu shotGet TdapGet Shingrix vaccineGet PCV #20Get COVID 19 vaccineGet RSV vaccine RTC in 3 months, do labs ER if worse, he did verbalize his understand ing of the above Coronary arteriosclerosis 42000909 I25.10 ECHO 01/05/2024 : In a fibUS [...] 08/09/2024 , referred Dr Kathleen Wyman 09/27/[address] Jonah Momin cardiologi st in [facility], he self referred 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 792171800 E11.9 On jardiance 10mg dailyNot on metformin 1000mg dailyOn Ozempic 2mg weekly as he feels that his diarrhea has improved, advised to stop if getting any procedure Get labs Hyperlipidemia 11510074 E78.5 On atorvastat in 40mg dailyOn zetiaOn cholestyra mineGet labs Vitamin D deficiency 347 16746 E55.9 Urinary incontinence 165 824564 R32 On finasterid e 5mg dailyOn flomax renewed 06/05/2024 Dr Mares 09/12/2024 Gastroesop hageal reflux disease without esophagitis 705978075 K21.9 On pantoprazo le 40mg dailyGet EGD done, has seen Dr Spears Chronic pain 85965934 G8 9.29 Advised not to take any [...] Dr Watters OV : Sees pain management Xray R/L knee 05/06/2025 Xray T/L/S spine 05/06/2025 Atrial fibrillation [address] 05/22/[address] Wyman Obstructiv e sleep apnea syndrome 25994355 G47.33 Dr Tyson 08/10/2022 Proteinuria 26757622 R80 .9 On kerendiaLo w protein, more protein in diet and see nephrology Pain of le ft knee joint 1536240505 25398 M25.562 José Miguel Mcduffie PA 01/25/2024 , s/p kenalog Diarrhea 78334314 R19.7 Has stopped the metformin, ozempicHis opiates [...] 12/06/2024 : Dr Spears 11/16/2024 OV Neuropathy 618213771 G62 .9 Sees his practical nurse clinical coordinator Is on qutenza (capsacin) Pruritic rash 50187901 L 28.2 Has noted a rash underneath the abdominal fold, none today, but has used clot-betam ethasone in the past with good reliefRene w the clotrimazo le-betamet hasone cream as needed Lesion of skin of face 3460289712 06 L98.9 [place] lesion noted on the L scalp and R mid neck Erectile dysfunction 860 271106 F52.21 On sildenafil , renewed 07/18/2025 States that his cardiologi st Dr Momin has reviewed his med list and has allowed him to take thisDoes well Paratrache al lymphadenopathy 90668565 R59.0 Dr Ruiz 11/01/2024 : f/u in [...] Member ID [employer] Member ID Guarantor Name 07/15/2025 1 [place] Mannie Cabello [id number] Mannie De La Torre Cabello 07/15/2025 2 [place]) [id number] Mannie Cabello [id number] Mannie Cabello Notes Date Note Type Note Provider Name and Address Organization Details Recorded Time 4 text/html this patient is taking tamsulosin and [...] fluids throughout the day Rafael Mares MD [address] [place] [address], [facility] [address], [place], [address], [facility] [employer] 09/12/2024 16:16:03 5 text/html OV 10/20/2023:Here to establish care Past [email or web address] Reviewed social [...] Patterson MD [address], [address], [place], [address], [employer] 12/06/2024 12:26:32 5 text/html this patient has had BPH for [...] Mares MD [address], [address], [place], [address], [employer] 12/14/2024 16:12:44 5 text/html OV 10/20/2023:Here to establish care Past [email or web address] Reviewed social [...] he feels well today Nahed Patterson MD [address] [place] [address], [facility] [address], [place], [address], [facility] 05/10/2025 13:33:35 5 text/html OV 10/20/2023:Here to establish carePast [email or web address] social family and surgical history, does well [...] his f/u apt, he feels well today OV 07/18/2025: Here for his f/u apt he is doing well, he did do the labs on 07/10/2025 Nahed Patterson MD [address] [facility], [address], [place], [address], [facility] 07/18/2025 18:22:01
--- NOTE | 2025-08-06 15:19 | ED.GENADULT ---
HPI - General Adult General Chief complaint: Chest Pain Stated complaint: cp Time Seen by Provider: 08/06/25 15:08 History of Present Illness HPI narrative: 75-year-old male presented to the emergency department for evaluation for nausea vomiting and epigastric/chest pain. Patient reports the last few days he has had some associated nausea vomiting decreased p.o. intake. Patient began having some chest pain this morning. Patient describes the burning chest pain that did not radiate to his neck back or arms. Patient does report he has got a significant cardiac history. Patient states when he was 43 he did have a CABG in on 55 he had a 2nd CABG. Patient does follow-up with Dr. Momin. Related Data Home Medications ?Medication ?Instructions ?Recorded ?Confirmed ?Last Taken ?Type finasteride 5 mg tablet 5 mg PO DAILY 08/12/23 05/17/25 08/11/23 History warfarin 5 mg tablet See Rx Instructions .Route .COMPLEX 08/12/23 05/17/25 08/11/23 History triamcinolone acetonide 0.1 % 1 applic topical BID 08/26/23 05/17/25 Unknown History topical cream atorvastatin 40 mg tablet 40 mg PO DAILY 05/07/24 05/17/25 Unknown History cholestyramine (with sugar) 4 gram ea PO 05/07/24 05/17/25 Unknown History powder for susp in a packet dipyridamole 75 mg tablet 75 mg PO Q8H 05/07/24 05/17/25 Unknown History empagliflozin 10 mg tablet 10 mg PO DAILY 05/07/24 05/17/25 Unknown History (Jardiance) ferrous sulfate 325 mg (65 mg 325 mg PO DAILY 05/07/24 05/17/25 Unknown History iron) tablet,delayed release finerenone 20 mg tablet (Kerendia) 20 mg PO DAILY 05/07/24 05/17/25 Unknown History mecobalamin (vitamin B12) 1,000 1,000 mcg PO DAILY 05/07/24 05/17/25 Unknown History mcg chewable tablet sacubitril 97 mg-valsartan 103 mg 1 tablet PO BID 05/07/24 05/17/25 Unknown History tablet (Entresto) semaglutide 2 mg/dose (8 mg/3 mL) mg subcut 08/08/24 05/17/25 Unknown History subcutaneous pen injector (Ozempic) warfarin 7.5 mg tablet mg PO 08/08/24 05/17/25 Unknown History calcitriol 0.25 mcg capsule 0.25 mcg PO DAILY 05/17/25 05/17/25 Unknown History gabapentin 300 mg capsule 300 mg PO Q6-8H 05/17/25 05/17/25 Unknown History Allergies Allergy/AdvReac Type Severity Reaction Status Date / Time No Known Allergies Allergy Verified 08/06/25 15:41 Review of Systems Review of Systems: All systems reviewed & are unremarkable except as noted in HPI and below PMFSH Past Medical History Medical History Cancer of larynx History of heart attack Pacemaker PAF (paroxysmal atrial fibrillation) Morbid obesity due to excess calories Anemia Cellulitis Heart disease Heart attack CHF (congestive heart failure) CAD (coronary artery disease) Skin cancer Allergies Dyslipidemia HTN (hypertension) Arthritis Anxiety GERD (gastroesophageal reflux disease) Diabetes Surgical History Surgical History History of knee surgery trauma to both knees History of neck surgery History of bariatric surgery History of left knee replacement History of open heart surgery 1994 Open heart Mechanical Valve 2004 Family History Family History Father Diabetes mellitus Heart disease Hypertension Mother Heart disease Social History Social History (Updated 05/17/25 @ 07:42 by Amaya [facility]) Smoking status: Never smoker Alcohol intake: never Substance use: never Current Housing: Decline to Answer Concerned About Future Housing: Decline to Answer Difficulty Paying Gas/Electric Bills: Decline to Answer Difficulty Paying for Meds: Decline to Answer Currently Unemployed: Decline to Answer Education: Decline to Answer Difficulty w/ Childcare or Family Care: Decline to Answer Spiritual care concerns: No Exam Narrative: APPEARANCE: Well appearing, no pain, no distress, well-nourished. HEAD: normocephalic, atraumatic. EYES: PERRLA/EOMI, conjunctivae clear. NOSE: Normal no drainage EARS:TMS clear with good light reflex. THROAT: Pharynx clear, no exudate. NECK: Supple. No adenopathy, no masses. RESPIRATORY: Airway patent, respirations nonlabored. Clear to auscultation bilaterally, no rales, rhonchi, wheezing. CARDIOVASCULAR: Regular rate and rhythm without murmurs rubs or gallops. ABDOMINAL: Soft, nontender, nondistended, normal bowel sounds MUSCULOSKELETAL: Moves all extremities. Strength/ROM intact, No edema, No calf tenderness. NEURO: Alert. Cranial nerves II through XII intact. Good gait. Good coordination SKIN: Warm, dry. Normal Color Course Vital Signs Vital signs: Vital Signs Pulse Oximetry 95 08/06/25 14:54 Oxygen Delivery Room Air 08/06/25 14:54 Temperature 98.5 F 08/06/25 14:56 Pulse Rate 85 08/06/25 18:45 Respiratory Rate 14 08/06/25 18:45 Blood Pressure 105/68 08/06/25 18:31 Pulse Oximetry 97 08/06/25 18:31 Oxygen Delivery Room Air 08/06/25 14:56 Medical Decision Making MDM Narrative Medical decision making narrative: 75-year-old male presents emergency department for evaluation for nausea vomiting and subsequent chest pain the describes as burning. Patient was treated with GI cocktail and patient states the chest pain was resolved. Patient had negative serial troponins negative serial EKGs. Low concern for ACS. Patient's symptoms do seem more consistent with gastritis and esophagitis. Patient family updated the results of the workup and importance of close follow-up with primary care physician. They were also educated on reasons to return to the emergency department. All questions concerns were addressed. Differential Diagnosis Differential Diagnosis: ACS, pneumonia, pneumothorax, gastritis, esophagitis, duodenitis Vital Signs Vital Signs: Vital Signs Pulse Oximetry 95 08/06/25 14:54 Oxygen Delivery Room Air 08/06/25 14:54 Temperature 98.5 F 08/06/25 14:56 Pulse Rate 85 08/06/25 18:45 Respiratory Rate 14 08/06/25 18:45 Blood Pressure 105/68 08/06/25 18:31 Pulse Oximetry 97 08/06/25 18:31 Oxygen Delivery Room Air 08/06/25 14:56 Lab Data Lab results reviewed: Yes I reviewed the patient's lab results. 08/06/25 15:05 08/06/25 15:05 Labs: Lab Results 08/06/25 08/06/25 Range/Units 15:05 18:13 WBC 10.4 H (4.5-10.0) K/mm3 RBC 4.66 (4.6-6.20) M/mm3 Hgb 14.2 (14.0-18.0) g/dL Hct 44.2 (42.0-52.0) % MCV 94.8 (80-100) fl MCH 30.5 (26-34) pg MCHC 32.1 (32-36) g/dl RDW 14.2 (11.5-14.5) % Plt Count 170 (150-375) k/mm3 MPV 9.6 (7.4-10.4) fl Immature Gran % (Auto) 0.3 (0-0.5) % Neut % (Auto) 77.4 H (45.5-73.1) % Lymph % (Auto) 13.2 L (18.3-44.2) % [place] % (Auto) 8.2 (2.6-8.5) % Eos % (Auto) 0.7 (0-4.4) % Baso % (Auto) 0.2 (0.2-1.2) % Lymph # (Auto) 1.37 (0.9-3.2) K/mm3 [place] # (Auto) 0.9 H (0.1-0.6) K/mm3 Eos # (Auto) 0.1 (0-0.3) K/mm3 Baso # (Auto) 0.0 (0.0-0.1) K/mm3 Abs Immat Gran (auto) 0.03 (0.00-0.031) K/mm3 Absolute Neuts (auto) 8.0 H (1.3-6.7) K/mm3 Absolute Nucleated RBC 0.000 (0.0-0.012) K/mm3 Nucleated RBC % 0.0 (0.0-0.2) % PT 20.8 H (11.1-14.7) Seconds INR 1.8 APTT 32.4 (22.3-36.8) Seconds Sodium 138 (137-145) mmol/L Potassium 4.5 (3.4-5.0) mmol/L Chloride 107 (98-107) mmol/L Carbon Dioxide 24 (22-30) mmol/L Anion Gap 7 (4-12) mmol/L BUN 18 D (9-20) mg/dL Creatinine 0.74 (0.7-1.3) mg/dL Estim Creat Clear Calc 91 ml/min Estimated GFR > 60 (59 - ) Glucose 130 H (65-110) mg/dL Calcium 8.7 (8.4-10.2) mg/dL Total Bilirubin 0.7 (0.2-1.3) mg/dL AST 21 (17-59) U/L ALT 23 (6-50) U/L Alkaline Phosphatase 46 (38-126) U/L Troponin I < 0.012 < 0.012 (0.000-0.034) ng/mL Total Protein 6.5 (6.3-8.2) g/dL Albumin 4.0 (3.5-5.1) g/dL Lipase 77 (23-300) U/L Discharge Plan Discharge Clinical Impression: Burning chest pain, Nausea and vomiting Patient Disposition: Home Condition: Stable Instructions: Antibiotic Form, Chest Pain (DC), Clear Liquid Diet (ED), Diet for Stomach Ulcers and Gastritis (ED) Additional Instructions: Continue to take your pantoprazole as directed. Follow a bland diet for the next few days. Zofran as needed for nausea control. Maalox as needed intermittently for epigastric pain. Have close follow-up with primary care physician for additional outpatient cardiac testing. If you have any worsening symptoms and please call or return to the emergency department. Patient Language: Comoran Prescriptions: New ondansetron 4 mg tablet,disintegrating 4 mg PO Q8H PRN (Reason: nausea and vomiting) Qty: 14 0RF No Action albuterol sulfate 90 mcg/actuation HFA aerosol inhaler 1 puff inhalation Q4H PRN (Reason: shortness of breath or wheezing) Qty: 8.5 1RF Kerendia 20 mg tablet 20 mg PO DAILY dipyridamole 75 mg tablet 75 mg PO Q8H Rx Instructions: administer 1 hour before or 2 hours after food or meals ferrous sulfate 325 mg (65 mg iron) tablet,delayed release (DR/EC) 325 mg PO DAILY mecobalamin (vitamin B12) 1,000 mcg tablet,chewable 1,000 mcg PO DAILY Entresto 97-103 mg tablet 1 tablet PO BID atorvastatin 40 mg tablet 40 mg PO DAILY Jardiance 10 mg tablet 10 mg PO DAILY cholestyramine (with sugar) 4 gram powder in packet PO gabapentin 300 mg capsule 300 mg PO Q6-8H calcitriol 0.25 mcg capsule 0.25 mcg PO DAILY hydrocodone-acetaminophen 10-325 mg tablet 1 tablet PO Q8H PRN (Reason: pain) Qty: 60 0RF triamcinolone acetonide 0.1 % cream 1 applic topical BID warfarin 7.5 mg tablet PO Ozempic 2 mg/dose (8 mg/3 mL) pen injector subcut acetaminophen 500 mg capsule See Rx Instructions .ROUTE .COMPLEX PRN (Reason: pain) Qty: 30 0RF Rx Instructions: Take 1 or 2 (500mg or 1000mg) every 6 hours ; not to exceed 4000mg total per day finasteride 5 mg tablet 5 mg PO DAILY warfarin 5 mg tablet See Rx Instructions .ROUTE .COMPLEX Rx Instructions: Takes 5mg po on , Tue, , Tue, Tue, Tue. Takes 4mg po on Tuesday only. (DME) pen needle, diabetic [BD Ultra-Fine Mini Pen Needle] 31 gauge x 3/16 needle See Rx Instructions .ROUTE .COMPLEX Qty: 100 3RF Dose Instruction: USE DAILY WITH LEVEMIR Rx Instructions: USE DAILY WITH LEVEMIR nitroglycerin 0.4 mg tablet, sublingual 0.4 mg sublingual Q5M PRN (Reason: chest pain) Qty: 30 0RF Rx Instructions: do not exceed 3 doses per episode (DME) OneTouch Ultra Test Strip See Rx Instructions .Route Qty: 100 2RF Rx Instructions: Use to check BS BID albuterol sulfate 2.5 mg /3 mL (0.083 %) solution for nebulization 2.5 mg inhalation Q4-6H PRN (Reason: shortness of breath or wheezing) Qty: 75 0RF pantoprazole 40 mg tablet,delayed release (DR/EC) 40 mg PO QAM Qty: 90 0RF Rx Instructions: NEEDS APPOINTMENT FOR FURTHER REFILLS tamsulosin 0.4 mg capsule 0.4 mg PO DAILY Qty: 90 0RF Rx Instructions: NEEDS APPOINTMENT FOR FURTHER REFILLS Follow-up/Referrals: Leonardo,MD Tiana [Primary Care Provider, Unknown]
[2025-08-06 15:21] LABS: INR 1.8; Partial Thromboplastin Time 32.4 Seconds (22.3-36.8); Prothrombin Time 20.8 Seconds (11.1-14.7)
[2025-08-06] MEDS: ASPIRIN 81 MG CHEWABLE TABLET 324 MG PO (15:42)
[2025-08-06] MEDS: BELLADONNA ALK/PHENOB ELIX 10 ML, MAG HYDROX/ALUMINUM HYD/SIMETH 30 ML, LIDOCAINE 2% VI... PO (15:43)
[2025-08-06 15:45] LABS: Alanine Aminotransferase 23 U/L (6-50); Albumin Level 4.0 g/dL (3.5-5.1); Alkaline Phosphatase 46 U/L (38-126); Anion Gap 7 mmol/L (4-12); Aspartate Amino Transferase 21 U/L (17-59); Bilirubin,Total 0.7 mg/dL (0.2-1.3); Blood Urea Nitrogen 18 mg/dL (9-20); Calcium 8.7 mg/dL (8.4-10.2); Carbon Dioxide 24 mmol/L (22-30); Chloride 107 mmol/L (98-107); Estimated CRCL calculation 91 ml/min; Estimated Glomerular Filt Rate > 60; Glucose 130 mg/dL (65-110); Lipase 77 U/L (23-300); Potassium 4.5 mmol/L (3.4-5.0); Sodium 138 mmol/L (137-145); Total Protein 6.5 g/dL (6.3-8.2)
[2025-08-06] MEDS: PANTOPRAZOLE SODIUM IV 40 MG VIAL IV PUSH (15:45)
[2025-08-06 15:58] LABS: Troponin I < 0.012 ng/mL (0.000-0.034)
--- NOTE | 2025-08-06 18:10 | ECG_ITS ---
Test Date: 2025-08-06 18:17:38 Measurements Intervals [place] Rate: 84 P: 0 [place]: 0 QRS: -32 QRSD: 174 T: 35 QT: 413 QTc: 491 Interpretive Statements ELECTRONIC VENTRICULAR PACEMAKER ABNORMAL RHYTHM ECG Compared to ECG 08/06/2025 14:58:35 No significant changes Electronically Signed On 08-06-2025 19:36:43 CDT by Gisell Avilez M.D.
[2025-08-06 18:49] LABS: Troponin I < 0.012 ng/mL (0.000-0.034)
== END 2025-08-06 19:06 | disposition home or self-care (01) ==
PROVIDERS: Student in an Organized Health Care Education/Training Program; Emergency Provider Emergency Medicine; PCP Internal Medicine
DX: R07.9 Chest pain, unspecified (principal); R11.2 Nausea with vomiting, unspecified; I25.2 Old myocardial infarction; I48.0 Paroxysmal atrial fibrillation; I50.9 Heart failure, unspecified; I25.10 Atherosclerotic heart disease of native coronary artery without angina pectoris; I11.0 Hypertensive heart disease with heart failure; E78.5 Hyperlipidemia, unspecified; E11.9 Type 2 diabetes mellitus without complications; M19.90 Unspecified osteoarthritis, unspecified site; K21.9 Gastro-esophageal reflux disease without esophagitis; Z98.84 Bariatric surgery status; Z95.2 Presence of prosthetic heart valve; Z95.0 Presence of cardiac pacemaker; Z95.1 Presence of aortocoronary bypass graft; Z96.652 Presence of left artificial knee joint; Z85.21 Personal history of malignant neoplasm of larynx; Z85.828 Personal history of other malignant neoplasm of skin; Z79.01 Long term (current) use of anticoagulants; Z79.85 Long-term (current) use of injectable non-insulin antidiabetic drugs; Z79.899 Other long term (current) drug therapy; Z79.84 Long term (current) use of oral hypoglycemic drugs
CPT/HCPCS: 36415; 71046; 80053; 83690; 84484; 85025; 85610; 85730; 93005; 96374; 99284; A9270; J2470

== ENCOUNTER 2025-09-19 07:20 | Emergency (ER) | payer MEDICARE, SELFPAY ==
--- OUTSIDE RECORDS SUMMARY | 2024-03-23 07:00 | XMS_ITS ---
Author Organization [facility] Office Address [address] [place] [address] Care Team Providers Care Respiratory Services Manager Name Role Phone Gigi Justin Unavailable [phone] Social History Sex Assigned At : Social History Observation Description Sex Assigned At Male Problems Problem Type SNOMED Code ICD Code Onset Dates Problem Status W/U Status Risk Notes Problem Anxiety disorder (108016041) Anxiety disorder, unspecified (F41.9) Active confirmed Problem Chronic fatigue syndrome (disorder) (59875165) Chronic fatigue, unspecified (R53.82) Active confirmed Problem Renal osteodystrophy (07154510) Renal osteodystrophy (N25.0) Active confirmed Problem Heart failure (36663821) Heart failure, unspecified (I50.9) Active confirmed Encounters Encounter Location Date Provider Diagnosis [place] [facility] [address] [facility] 15 [place] [address] 03/23/2024 Gigi Justin Chronic kidney disea se, stage 3a N18.31 ; Anxiety disorder, unspecified F41.9 ; Chronic fatigue, unspecified R53.82 ; Renal osteodystrophy N25.0 and Heart failure, unspecified I50.9 Assessments Encounter Date Diagnosis (ICD Code) Assessment Notes Treatment Notes Treatment Clinical Notes Section Notes 03/23/2024 Chronic kidney disease, stage 3a (ICD-10 - N18.31) 03/23/2024 Anxiety disorder, unspecified (ICD-10 - F41.9) 03/23/2024 Chronic fatigue, unspecified (ICD-10 - R53.82) 03/23/2024 Renal osteodystrophy (ICD-10 - N25.0) 03/23/2024 Heart failure, unspecified (ICD-10 - I50.9) Plan Of Treatment No Information Progress Notes * MANNIE CABELLODOB:1950 ( 75 yo F)Acc No.[id number]:03/23/2024 Progress Notes Patient: MANNIE APARICIO Provider: Nayeli MAE MD, Brandon.Jose.LorettaP, F.A.S.N. :1950 A ge:74 Y S ex:Female Date:03/23/2024 Address:[address] [place] [address] Subjective: * Chief Complaints: * * Medical History: Objective: * Vitals: Assessment: * Assessment: 1. C hronic kidney disease, stage 3a - N18.31 2 . A nxiety disorder, unspecified - F41.9 3 . C hronic fatigue, unspecified - R53.82 4 .?Renal osteodystrophy - N25.0 5 . H eart failure, unspecified - I50.9 ? Plan: * Treatment: * Billing Information: * Visit Code: 14543 Office Visit, New Pt., Level 5. * Procedure Codes: * Electronic signature of Fox Justin MD on 09/19/2025 at 08:59 AM DIRECTOR OF ADVERTISING SALES Sign off status: Pending * Provider: Nayeli MAE MD, Cristian, F.A.S.N. Date: 03/23/2024 Generated for Printing/Faxing/eTransmitting on: 11/19/2024 08:59 AM DIRECTOR OF ADVERTISING SALES
--- OUTSIDE RECORDS SUMMARY | 2024-04-04 10:05 | XMS_ITS ---
Author Organization [facility] Address 1400 [facility] 61 [facility] [place] [address] Care Team Providers Care Pad Extraction Tender Name Role Phone Nhan Gigi Unavailable [phone] Social History Sex Assigned At : Social History Observation Description Sex Assigned At Male Encounters Encounter Location Date Provider Diagnosis [facility] [address] [place] [address] 04/04/2024 Gigi Justin Chronic kidney disea se, stage 3a N18.31 ; Anxiety disorder, unspecified F41.9 ; Chronic fatigue, unspecified R53.82 ; Renal osteodystrophy N25.0 and Heart failure, unspecified I50.9 Assessments Encounter Date Diagnosis (ICD Code) Assessment Notes Treatment Notes Treatment Clinical Notes Section Notes 04/04/2024 Chronic kidney disease, stage 3a (ICD-10 - N18.31) 04/04/2024 Anxiety disorder, unspecified (ICD-10 - F41.9) 04/04/2024 Chronic fatigue, unspecified (ICD-10 - R53.82) 04/04/2024 Renal osteodystrophy (ICD-10 - N25.0) 04/04/2024 Heart failure, unspecified (ICD-10 - I50.9) Plan Of Treatment No Information Progress Notes * IRINEOMANNIEDOB:1950 ( 75 yo F)Acc No.[id number]:04/04/2024 Patient: MANNIE APARICIO Provider: Nayeli MAE MD, F.A.C.P, F.A.S.N. :1950 A ge:74 Y S ex:Female Date:04/04/2024 Address:[address] [place] [address] [address], [place] [address] Subjective: * Chief Complaints: Objective: Assessment: * Assessment: 1. C hronic kidney disease, stage 3a - N18.31 (Primary) 2 . A nxiety disorder, unspecified - F41.9 3 . C hronic fatigue, unspecified - R53.82 ?4. R enal osteodystrophy - N25.0 5 . H eart failure, unspecified - I50.9? Plan: * Billing Information: * Visit Code: 03135 Office Visit, Est Pt., Level 5. * Procedure Codes: * Electronic signature of Fox Justin MD on 09/19/2025 at 09:00 AM METAL BASE BLOCKER Sign off status: Pending * Provider: Nayeli MAE MD, F.A.C.P, F.A.S.N. Date: 0 04/04/2024 Generated for Printing/Faxing/eTransmitting on: 11/19/2024 09:00 AM METAL BASE BLOCKER
--- OUTSIDE RECORDS SUMMARY | 2024-04-25 06:00 | XMS_ITS ---
Author Organization [facility] Address [address] [place] [address] Care Team Providers Care Radiology Services Manager Name Role Phone Nhan Gigi Unavailable [phone] Social History Sex Assigned At : Social History Observation Description Sex Assigned At Male Encounters Encounter Location Date Provider Diagnosis [place] [facility] [address] [facility] 15 [place] [address] 04/25/2024 Gigi Justin Chronic kidney disea se, stage 3a N18.31 ; Anxiety disorder, unspecified F41.9 ; Chronic fatigue, unspecified R53.82 ; Renal osteodystrophy N25.0 and Heart failure, unspecified I50.9 Assessments Encounter Date Diagnosis (ICD Code) Assessment Notes Treatment Notes Treatment Clinical Notes Section Notes 04/25/2024 Chronic kidney disease, stage 3a (ICD-10 - N18.31) 04/25/2024 Anxiety disorder, unspecified (ICD-10 - F41.9) 04/25/2024 Chronic fatigue, unspecified (ICD-10 - R53.82) 04/25/2024 Renal osteodystrophy (ICD-10 - N25.0) 04/25/2024 Heart failure, unspecified (ICD-10 - I50.9) Plan Of Treatment No Information Progress Notes * IRINEOMANNIEDOB:1950 ( 75 yo F)Acc No.[id number]:04/25/2024 Progress Notes Patient: MANNIE APARICIO Provider: Nayeli MAE MD, F.A.C.P, F.A.S.N. :1950 A ge:74 Y S ex:Female Date:04/25/2024 Address:[address] [place], [place] [address] [address], [facility] Subjective: * Chief Complaints: * * Medical History: Objective: * Vitals: Assessment: * Assessment: 1. C hronic kidney disease, stage 3a - N18.31 (Primary) 2 . A nxiety disorder, unspecified - F41.9 3 . C hronic fatigue, unspecified - R53.82 ?4. R enal osteodystrophy - N25.0 5 . H eart failure, unspecified - I50.9? Plan: * Treatment: * Billing Information: * Visit Code: 16422 Office Visit, Est Pt., Level 4. * Procedure Codes: * Electronic signature of Fox Justin MD on 09/19/2025 at 08:59 AM GLASS GLAZIER Sign off status: Pending * Provider: Nayeli MAE MD, F.A.C.P, F.A.S.N. Date: 0 04/25/2024 Generated for Printing/Faxing/eTransmitting on: 1 11/19/2024 08:59 AM GLASS GLAZIER
--- OUTSIDE RECORDS SUMMARY | 2024-07-13 08:15 | XMS_ITS ---
Author Organization [facility] Address [address] [place] [address] Care Team Providers Care Air Brake Rigger Name Role Phone Gigi Justin Unavailable [phone] Social History Sex Assigned At : Social History Observation Description Sex Assigned At Male Encounters Encounter Location Date Provider Diagnosis [place] [facility] 2043 [facility] 15 [place] [address] 07/13/2024 Gigi Justin Plan Of Treatment No Information Progress Notes * MANNIE CABELLODOB:1950 ( 75 yo F)Acc No.[id number]:07/13/2024 Progress Notes Patient: MANNIE APARICIO Provider: Nayeli MAE MD, F.Jose.C.P, F.A.S.N. :1950 A ge:74 Y S ex:Female Date:07/13/2024 Address:[address] [place] [address] [address], [place] [address] Subjective: * Chief Complaints: * * Medical History: Objective: * Vitals: Assessment: Plan: * Treatment: * Billing Information: * Visit Code: * Procedure Codes: * Electronic signature of Fox Justin MD on 09/19/2025 at 08:58 AM ELECTRONIC ASSEMBLER Sign off status: Pending * Provider: Nayeli MAE MD, Brandon.Jose.C.P, F.A.S.N. Date: 0 07/13/2024 Generated for Printing/Faxing/eTransmitting on: 11/19/2024 08:58 AM ELECTRONIC ASSEMBLER
--- OUTSIDE RECORDS SUMMARY | 2024-12-12 09:30 | XMS_ITS ---
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) Active confirmed Problem Hyperlipidemia (19719331) Hyperlipidemia, unspecified (E78.5) Active confirmed Problem Coronary artery disease (47602805) CAD (coronary artery disease) (I25.10) Active confirmed Problem Benign prostatic hypertrophy without outflow obstruction (556051641) Benign prostatic hyperplasia without lower urinary tract symptoms (N40.0) Active confirmed Encounters Encounter Location Date Provider Diagnosis [place] [facility] [address] [facility] [address] [place] [address] 12/12/2024 Gigi Justin Chronic kidney disease, stage 3a N18.31 ; 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 ; Hyperlipidemia, unspecified E78.5 ; CAD (coronary artery disease) I25.10 and Benign prostatic hyperplasia without lower urinary tract symptoms N40.0 Assessments Encounter Date Diagnosis (ICD Code) Assessment Notes Treatment Notes Treatment Clinical Notes Section Notes 12/12/2024 Chronic kidney disease, stage 3a (ICD-10 - N18.31) 12/12/2024 Personal history of malignant neoplasm of larynx (ICD-10 - Z85.21) 12/12/2024 Hyperlipidemia, unspecified (ICD-10 - E78.5) 12/12/2024 CAD (coronary artery disease) (ICD-10 - I25.10) 12/12/2024 Benign prostatic hyperplasia without lower urinary tract symptoms (ICD-10 - N40.0) Plan Of Treatment No Information Progress Notes * SUSAN CABELLO:1950 ( 75 yo F)Acc No.[id number]:12/12/2024 Progress Notes Patient: MANNIE APARICIO Provider: Nayeli MAE MD, F.Jose.Jaz.P, F.A.S.N. :1950 A ge:74 Y S ex:Female Date:12/12/2024 Address:[address] [place] [address] Subjective: * Chief Complaints: * * Medical History: Objective: * Vitals: Assessment: * Assessment: 1. C hronic kidney disease, stage 3a - N18.31 (Primary) 2 . P ersonal history of malignant neoplasm of larynx - Z85.21 3 . H yperlipidemia, unspecified - E78.5 4 . C AD (coronary artery disease) - I25.10 5 . B enign prostatic hyperplasia without lower urinary tract symptoms - N40.0 Plan: * Treatment: * Billing Information: * Visit Code: 49884 Office Visit, New Pt., Level 5. * Procedure Codes: * Electronic signature of Fox Justin MD on 09/19/2025 at 08:59 AM BOXING AND PRESSING SUPERVISOR Sign off status: Pending * Provider: Nayeli MAE MD, F.Jose.C.P, F.A.S.N. Date: 0 12/12/2024 Generated for Printing/Faxing/eTransmitting on: 1 11/19/2024 08:59 AM BOXING AND PRESSING SUPERVISOR
--- OUTSIDE RECORDS SUMMARY | 2024-12-26 10:00 | XMS_ITS ---
Author Organization [facility] Address [address] [place] [address] Care Team Providers Care Software Applications Architect Name Role Phone Gigi Justin Unavailable [phone] Social History Sex Assigned At : Social History Observation Description Sex Assigned At Male Encounters Encounter Location Date Provider Diagnosis [place] [facility] 2043 [facility] 15 [place] [address] 12/26/2024 Gigi Justin Plan Of Treatment No Information Progress Notes * MANNIE CABELLODOB:1950 ( 75 yo F)Acc No.[id number]:12/26/2024 Progress Notes Patient: MANNIE APARICIO Provider: Nayeli MAE MD, Brandon.Jose.C.P, F.A.S.N. :1950 A ge:74 Y S ex:Female Date:12/26/2024 Address:[address] [place] [address] [address], [place] [address] Subjective: * Chief Complaints: * * Medical History: Objective: * Vitals: Assessment: Plan: * Treatment: * Billing Information: * Visit Code: * Procedure Codes: * Electronic signature of Fox Justin MD on 09/19/2025 at 09:00 AM CLINICAL DOCUMENT IMPROVEMENT EDUCATOR Sign off status: Pending * Provider: Nayeli MAE MD, Brandon.Jose.C.P, F.A.S.N. Date: 12/26/2024 Generated for Printing/Faxing/eTransmitting on: 11/19/2024 09:00 AM CLINICAL DOCUMENT IMPROVEMENT EDUCATOR
--- OUTSIDE RECORDS SUMMARY | 2025-01-02 10:00 | XMS_ITS ---
Author Organization [facility] Office Address [address] [facility] [address] [place] [address] Care Team Providers Care Language Translator Name Role Phone Nhan Gigi Unavailable [phone] Social History Sex Assigned At : Social History Observation Description Sex Assigned At Male Problems Problem Type SNOMED Code ICD Code Onset Dates Problem Status W/U Status Risk Notes Problem Chronic kidney disease stage 2 (111094409) Chronic kidney disease, stage 2 (mild) (N18.2) Active confirmed Encounters Encounter Location Date Provider Diagnosis [place] [facility] [address] 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 ; Hyperlipidemia, unspecified E78.5 ; CAD (coronary artery disease) I25.10 and Benign prostatic hyperplasia without lower urinary tract symptoms N40.0 Assessments Encounter Date Diagnosis (ICD Code) Assessment Notes Treatment Notes Treatment Clinical Notes Section Notes 01/02/2025 Chronic kidney disease, stage 2 (mild) (ICD-10 - N18.2) 01/02/2025 Anxiety disorder, unspecified (ICD-10 - F41.9) 01/02/2025 Chronic fatigue, unspecified (ICD-10 - R53.82) 01/02/2025 Renal osteodystrophy (ICD-10 - N25.0) 01/02/2025 Heart failure, unspecified (ICD-10 - I50.9) 01/02/2025 Personal history of malignant neoplasm of larynx (ICD-10 - Z85.21) 01/02/2025 Hyperlipidemia, unspecified (ICD-10 - E78.5) 01/02/2025 CAD (coronary artery disease) (ICD-10 - I25.10) 01/02/2025 Benign prostatic hyperplasia without lower urinary tract symptoms (ICD-10 - N40.0) Plan Of Treatment No Information Progress Notes * MANNIE CABELLODOB:1950 ( 75 yo F)Acc No.[id number]:01/02/2025 Progress Notes Patient: MANNIE APARICIO Provider: Nayeli MAE MD, F.Jose.C.P, F.A.S.N. :1950 A ge:74 Y S ex:Female Date:01/02/2025 Address:[address] [place] [address] Subjective: * Chief Complaints: * * Medical History: Objective: * Vitals: Assessment: * Assessment: 1. C hronic kidney disease, stage 2 (mild) - N18.2 (Primary) 2 . A nxiety disorder, unspecified - F41.9 3 . C hronic fatigue, unspecified - R53.82 ? 4 . R enal osteodystrophy - N25.0 5 . H eart failure, unspecified - I50.9 6 . P ersonal history of malignant neoplasm of larynx - Z85.21 ?7. H yperlipidemia, unspecified - E78.5 8 . C AD (coronary artery disease) - I25.10 9 . B enign prostatic hyperplasia without lower urinary tract symptoms - N40.0 Plan: * Treatment: * Billing Information: * Visit Code: 68337 Office Visit, Est Pt., Level 4. * Procedure Codes: * Electronic signature of Fox Justin MD on 09/19/2025 at 08:59 AM SCREEN VENT BINDER Sign off status: Pending * Provider: Nayeli MAE MD, F.Jose.C.P, F.A.S.N. Date: 0 01/02/2025 Generated for Printing/Faxing/eTransmitting on: 11/19/2024 08:59 AM SCREEN VENT BINDER
--- OUTSIDE RECORDS SUMMARY | 2025-02-13 10:15 | XMS_ITS ---
Author Organization [facility] Address [address] [facility] [address] [place] [address] Care Team Providers Care Tripe Washer Name Role Phone Gigi Justin Unavailable [phone] Social History Sex Assigned At : Social History Observation Description Sex Assigned At Male Problems Problem Type SNOMED Code ICD Code Onset Dates Problem Status W/U Status Risk Notes Problem Glycosuria (30194912) Glycosuria (R81) Active confirmed Problem Chronic pain (47350374) Other chronic pain (G89.29) Active confirmed Problem Aortic valve disorder (9507011) Nonrheumatic aortic (valve) stenosis (I35.0) Active confirmed Encounters Encounter Location Date Provider Diagnosis [place] Office [address] [facility] [address] [place] [address] 02/13/2025 Gigi Justin Chronic kidney disea se, [...] * MANNIE CABELLODOB:1950 ( 75 yo F)Acc No.[id number]:02/13/2025 Progress Notes Patient: MANNIE APARICIO Provider: Nayeli MAE MD, F.A.C.P, F.A.S.N. :1950 A ge:75 Y S ex:Female Date:02/13/2025 Address:[address] [place] [address] Subjective: * Chief Complaints: * * Medical [...] Treatment: * Billing Information: * Visit Code: 34007 Office Visit, Est Pt., Level 4. * Procedure Codes: * Electronic signature of Fox Justin MD on 09/19/2025 at 09:00 AM LACQUERER Sign off status: Pending * Provider: Nayeli MAE MD, F.A.C.P, F.A.S.N. Date: 0 02/13/2025 Generated for Printing/Faxing/eTransmitting on: 11/19/2024 09:00 AM LACQUERER
--- OUTSIDE RECORDS SUMMARY | 2025-06-12 08:30 | XMS_ITS ---
Author Organization [facility] Office Address [address] [facility] [address] [place] [address] Care Team Providers Care Brazer [employer] Salvage Name Role Phone iGgi Justin Unavailable [phone] Social History Sex Assigned At : Social History Observation Description Sex Assigned At Male Problems Problem Type SNOMED Code ICD Code Onset Dates Problem Status W/U Status Risk Notes Problem Sick sinus syndrome (97091450) Sick sinus syndrome (I49.5) Active confirmed Encounters Encounter Location Date Provider Diagnosis [place] [facility] [address] [facility] [address] [place] [address] 06/12/2025 Gigi Justin Chronic kidney disea se, stage [...] Glycosuria R81 ; Other chronic pain G89.29 ; Nonrheumatic aortic (valve) stenosis I35.0 and Sick sinus syndrome I49.5 Assessments Encounter Date Diagnosis (ICD Code) Assessment Notes Treatment Notes Treatment Clinical Notes Section Notes 06/12/2025 Chronic kidney disease, stage 2 (mild) (ICD-10 - N18.2) 06/12/2025 Anxiety disorder, unspecified (ICD-10 - F41.9) 06/12/2025 Chronic fatigue, unspecified (ICD-10 - R53.82) 06/12/2025 Renal osteodystrophy (ICD-10 - N25.0) 06/12/2025 Heart failure, unspecified (ICD-10 - I50.9) 06/12/2025 Personal history of malignant neoplasm of larynx (ICD-10 - Z85.21) 06/12/2025 Hyperlipidemia, unspecified (ICD-10 - E78.5) 06/12/2025 CAD (coronary artery disease) (ICD-10 - I25.10) 06/12/2025 Benign prostatic hyperplasia without lower urinary tract symptoms (ICD-10 - N40.0) 06/12/2025 Glycosuria (ICD-10 - R81) 06/12/2025 Other chronic pain (ICD-10 - G89.29) 06/12/2025 Nonrheumatic aortic (valve) stenosis (ICD-10 - I35.0) 06/12/2025 Sick sinus syndrome (ICD-10 - I49.5) Plan Of Treatment No Information Progress Notes * MANNIE CABELLODOB:1950 ( 75 yo F)Acc No.[id number]:06/12/2025 Progress Notes Patient: MANNIE APARICIO Provider: Nayeli MAE MD, F.A.CNatalyaP, F.A.S.N. :1950 A ge:75 Y S ex:Female Date:06/12/2025 Address:[address] [place] [address] Subjective: * Chief Complaints: * * Medical [...] N onrheumatic aortic (valve) stenosis - I35.0 1 3. S ick sinus syndrome - I49.5 Plan: * Treatment: * Billing Information: * Visit Code: 99169 Office Visit, Est Pt., Level 4. * Procedure Codes: * Electronic signature of Fox Justin MD on 09/19/2025 at 08:59 AM BENCH MOVER Sign off status: Pending * Provider: Nayeli MAE MD, F.A.C.P, F.A.S.N. Date: 0 06/12/2025 Generated for Printing/Faxing/eTransmitting on: 11/19/2024 08:59 AM BENCH MOVER
--- OUTSIDE RECORDS SUMMARY | 2025-09-11 12:30 | XMS_ITS ---
Author Organization [facility] Office Address [address] [place] [address] Care Team Providers Care Psych Social Worker Name Role Phone Gigi Justin Unavailable [phone] REASON FOR VISIT Dentist appointment Social History Sex Assigned At : Social History Observation Description Sex Assigned At Male Encounters Encounter Location Date Provider Diagnosis [place] [facility] [address] [facility] [address] [place] [address] 09/11/2025 Ggii Justin Plan Of Treatment No Information Progress Notes * MANNIE CABELLODOB:1950 ( 75 yo F)Acc No.[id number]:09/11/2025 Progress Notes Patient: MANNIE APARICIO Provider: Nayeli MAE MD, Brandon.Jose.C.P, F.A.S.N. :1950 A ge:75 Y S ex:Female Date:09/11/2025 Address:[address] [place] [address] [address], [place] [address] Subjective: * Chief Complaints: Objective: Assessment: Plan: * Billing Information: * Visit Code: * Procedure Codes: * Electronic signature of Fox Justin MD on 09/19/2025 at 08:59 AM XEROX MACHINE ASSEMBLER Sign off status: Pending * Provider: Nayeli MAE MD, F.Jose.C.P, F.A.S.N. Date: 11/11/2024 Generated for Printing/Faxing/eTransmitting on: 11/19/2024 08:59 AM XEROX MACHINE ASSEMBLER
--- NOTE | ~2025-09-19 | XR_ITS ---
EXAMINATION: XR chest 2V DATE: 09/19/2025 08:44 INDICATION: Cough and sore throat TECHNIQUE: PA and lateral views of the chest were obtained. COMPARISON: Chest radiograph dated 08/06/2025 FINDINGS: Tiny bilateral pleural effusions with blunting at the posterior sulci and right costophrenic angle. No other airspace opacities, pulmonary edema or pneumothorax. Cardiomegaly. Median sternotomy wires and mediastinal surgical clips are seen, likely from prior coronary artery bypass grafting. Aortic valve repair Dual lead pacemaker/AICD seen with leads projecting over the expected locations of the right atrium and right ventricular outflow tract. IMPRESSION: 1. Tiny bilateral pleural effusions. 2. Cardiomegaly. Reviewed, dictated and finalized at location A. 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
[2025-09-19 07:29] VITALS: BP 108/65; PULSE 92; RESP 16; TEMP 36.6; O2SAT 97
[2025-09-19 08:09] LABS: Hematocrit 40.7 % (42.0-52.0); Hemoglobin 12.9 g/dL (14.0-18.0); Immature Granulocyte Percent A 0.2 % (0-0.5); Lymphocytes Absolute Auto 0.97 K/mm3 (0.9-3.2); Mean Corpuscular HGB Conc 31.7 g/dl (32-36); Mean Corpuscular Hemoglobin 29.9 pg (26-34); Mean Corpuscular Volume 94.2 fl (80-100); Nucleated Red Blood Cells Absolute Auto 0.000 K/mm3 (0.0-0.012); Nucleated Red Blood Cells Perc 0.0 % (0.0-0.2); Platelet Count Result 130 k/mm3 (150-375); Red Blood Count 4.32 M/mm3 (4.6-6.20); White Blood Count 6.2 K/mm3 (4.5-10.0)
[2025-09-19] MEDS: IPRATROPIUM 0.5 MG/ALBUTEROL SULFATE 2.5 MG (BASE) AMPUL.NEB 3 ML INHALATION (08:18)
[2025-09-19 08:19] VITALS: PULSE 80; RESP 14
[2025-09-19 08:20] LABS: INR 4.3; Prothrombin Time 39.3 Seconds (11.1-14.7)
--- NOTE | 2025-09-19 08:20 | PCRCNOTE ---
was in a patient room on the floors, DELAYED [place]
[2025-09-19 08:21] LABS: Partial Thromboplastin Time 47.5 Seconds (22.3-36.8)
[2025-09-19 08:22] VITALS: PULSE 85; RESP 22
[2025-09-19 08:30] LABS: Alanine Aminotransferase 16 U/L (6-50); Albumin Level 3.7 g/dL (3.5-5.1); Alkaline Phosphatase 37 U/L (38-126); Anion Gap 6 mmol/L (4-12); Aspartate Amino Transferase 25 U/L (17-59); Bilirubin,Total 0.7 mg/dL (0.2-1.3); Blood Urea Nitrogen 13 mg/dL (9-20); Calcium 8.7 mg/dL (8.4-10.2); Carbon Dioxide 23 mmol/L (22-30); Chloride 107 mmol/L (98-107); Estimated CRCL calculation 111 ml/min; Estimated Glomerular Filt Rate > 60; Glucose 119 mg/dL (65-110); Potassium 4.3 mmol/L (3.4-5.0); Sodium 136 mmol/L (137-145); Total Protein 6.4 g/dL (6.3-8.2)
--- NOTE | 2025-09-19 08:32 | ED.GENADULT ---
HPI - General Adult General Chief complaint: Upper Respiratory Infection Stated complaint: cold like symptoms Time Seen by Provider: 09/19/25 07:29 History of Present Illness HPI narrative: Patient is a 75-year-old male who presents ER with cough. Ongoing for 4 weeks. It started after he got his COVID and flu vaccine. He had sinus congestion with sore throat. No fevers or chills. Cough originally was productive but now he is having trouble getting stuff up. He has been on 3 separate courses of Augmentin to treat a possible pneumonia. Patient has history of heart disease with heart failure and CABG. He takes Coumadin. Related Data Home Medications ?Medication ?Instructions ?Recorded ?Confirmed ?Last Taken ?Type finasteride 5 mg tablet 5 mg PO DAILY 08/12/23 08/16/25 08/11/23 History warfarin 5 mg tablet See Rx Instructions .Route .COMPLEX 08/12/23 08/16/25 08/11/23 History triamcinolone acetonide 0.1 % 1 applic topical BID 08/26/23 08/16/25 Unknown History topical cream atorvastatin 40 mg tablet 40 mg PO DAILY 05/07/24 08/16/25 Unknown History cholestyramine (with sugar) 4 gram ea PO 05/07/24 08/16/25 Unknown History powder for susp in a packet dipyridamole 75 mg tablet 75 mg PO Q8H 05/07/24 08/16/25 Unknown History empagliflozin 10 mg tablet 10 mg PO DAILY 05/07/24 08/16/25 Unknown History (Jardiance) ferrous sulfate 325 mg (65 mg 325 mg PO DAILY 05/07/24 08/16/25 Unknown History iron) tablet,delayed release finerenone 20 mg tablet (Kerendia) 20 mg PO DAILY 05/07/24 08/16/25 Unknown History mecobalamin (vitamin B12) 1,000 1,000 mcg PO DAILY 05/07/24 08/16/25 Unknown History mcg chewable tablet sacubitril 97 mg-valsartan 103 mg 1 tablet PO BID 05/07/24 08/16/25 Unknown History tablet (Entresto) semaglutide 2 mg/dose (8 mg/3 mL) mg subcut 08/08/24 08/16/25 Unknown History subcutaneous pen injector (Ozempic) warfarin 7.5 mg tablet mg PO 08/08/24 08/16/25 Unknown History calcitriol 0.25 mcg capsule 0.25 mcg PO DAILY 05/17/25 08/16/25 Unknown History gabapentin 300 mg capsule 300 mg PO Q6-8H 05/17/25 08/16/25 Unknown History furosemide 20 mg tablet (Lasix) 20 mg PO QAM 08/16/25 08/16/25 Unknown History hydrocodone 7.5 mg-acetaminophen 1 tablet PO BID PRN 08/16/25 08/16/25 Unknown History 325 mg tablet ropinirole 2 mg tablet 2 mg PO DAILY 08/16/25 08/16/25 Unknown History Allergies Allergy/AdvReac Type Severity Reaction Status Date / Time No Known Allergies Allergy Verified 09/19/25 07:35 Review of Systems Review of Systems: All systems reviewed & are unremarkable except as noted in HPI and below Constitutional: Constitutional: Reports no additional constitutional complaints ENT: Reports system reviewed and no additional complaints, except as documented Cardiovascular: Cardiovascular: Reports no additional cardiovascular complaints Respiratory: Respiratory: Reports no additional respiratory complaints [facility] Past Medical History Medical History Cancer of larynx History of heart attack Pacemaker PAF (paroxysmal atrial fibrillation) Morbid obesity due to excess calories Anemia Cellulitis Heart disease Heart attack CHF (congestive heart failure) CAD (coronary artery disease) Skin cancer Allergies Dyslipidemia HTN (hypertension) Arthritis Anxiety GERD (gastroesophageal reflux disease) Diabetes Surgical History Surgical History History of knee surgery trauma to both knees History of neck surgery History of bariatric surgery History of left knee replacement History of open heart surgery 1994 Open heart Mechanical Valve 2004 Family History Family History Father Diabetes mellitus Heart disease Hypertension Mother Heart disease Social History Social History Smoking status: Never smoker Alcohol intake: never Substance use: never Current Housing: Decline to Answer Concerned About Future Housing: Decline to Answer Difficulty Paying Gas/Electric Bills: Decline to Answer Difficulty Paying for Meds: Decline to Answer Currently Unemployed: Decline to Answer Education: Decline to Answer Difficulty w/ Childcare or Family Care: Decline to Answer Spiritual care concerns: No Exam Narrative: GENERAL: Well-appearing, well-nourished, and in no acute distress. HEAD: Normocephalic, atraumatic. ENT: Mucous membranes moist. CHEST: Clear to auscultation. No respiratory distress. HEART: Regular rate and rhythm. Normal peripheral pulses. EXTREMITIES: Normal range of motion. No edema. SKIN: Warm, dry, no rash. NEURO: Alert and oriented x3. PSYCH: Normal mood and affect. Course Course Emergency Course: Patient resting comfortably. No hypoxia. X-ray without pneumonia. White blood cell count normal. INR mildly elevated and recommend patient contact wool grader about dosing. We will not prescribe any prednisone as this could also elevate his INR. Patient verbalized understanding. He may continue take zety-[id number] expectorants and use his inhaler at home. Discharge. Vital Signs Vital signs: Vital Signs Temperature 97.9 F 09/19/25 07:29 Pulse Rate 92 09/19/25 07:29 Respiratory Rate 16 09/19/25 07:29 Blood Pressure 108/65 09/19/25 07:29 Pulse Oximetry 97 09/19/25 07:29 Oxygen Delivery Room Air 09/19/25 07:29 Temperature 97.9 F 09/19/25 07:29 Pulse Rate 89 09/19/25 09:48 Respiratory Rate 19 09/19/25 09:48 Blood Pressure 109/67 09/19/25 09:48 Pulse Oximetry 100 09/19/25 09:48 Oxygen Delivery Room Air 09/19/25 07:35 Medical Decision Making Vital Signs Vital Signs: Vital Signs Temperature 97.9 F 09/19/25 07:29 Pulse Rate 92 09/19/25 07:29 Respiratory Rate 16 09/19/25 07:29 Blood Pressure 108/65 09/19/25 07:29 Pulse Oximetry 97 09/19/25 07:29 Oxygen Delivery Room Air 09/19/25 07:29 Temperature 97.9 F 09/19/25 07:29 Pulse Rate 89 09/19/25 09:48 Respiratory Rate 19 09/19/25 09:48 Blood Pressure 109/67 09/19/25 09:48 Pulse Oximetry 100 09/19/25 09:48 Oxygen Delivery Room Air 09/19/25 07:35 Lab Data 09/19/25 08:03 11/13/25 08:03 Labs: Lab Results 09/19/25 Range/Units 08:03 WBC 6.2 (4.5-10.0) K/mm3 RBC 4.32 L (4.6-6.20) M/mm3 Hgb 12.9 L (14.0-18.0) g/dL Hct 40.7 L (42.0-52.0) % MCV 94.2 (80-100) fl MCH 29.9 (26-34) pg MCHC 31.7 L (32-36) g/dl RDW 14.6 H (11.5-14.5) % Plt Count 130 L (150-375) k/mm3 MPV 9.5 (7.4-10.4) fl Immature Gran % (Auto) 0.2 (0-0.5) % Neut % (Auto) 71.0 (45.5-73.1) % Lymph % (Auto) 15.5 L (18.3-44.2) % Cassia % (Auto) 12.0 H (2.6-8.5) % Eos % (Auto) 1.0 (0-4.4) % Baso % (Auto) 0.3 (0.2-1.2) % Lymph # (Auto) 0.97 (0.9-3.2) K/mm3 Cassia # (Auto) 0.8 H (0.1-0.6) K/mm3 Eos # (Auto) 0.1 (0-0.3) K/mm3 Baso # (Auto) 0.0 (0.0-0.1) K/mm3 Abs Immat Gran (auto) 0.01 (0.00-0.031) K/mm3 Absolute Neuts (auto) 4.4 (1.3-6.7) K/mm3 Absolute Nucleated RBC 0.000 (0.0-0.012) K/mm3 Nucleated RBC % 0.0 (0.0-0.2) % PT 39.3 H (11.1-14.7) Seconds INR 4.3 APTT 47.5 H (22.3-36.8) Seconds Sodium 136 L (137-145) mmol/L Potassium 4.3 (3.4-5.0) mmol/L Chloride 107 (98-107) mmol/L Carbon Dioxide 23 (22-30) mmol/L Anion Gap 6 (4-12) mmol/L BUN 13 D (9-20) mg/dL Creatinine 0.61 L (0.7-1.3) mg/dL Estim Creat Clear Calc 111 ml/min Estimated GFR > 60 (59 - ) Glucose 119 H (65-110) mg/dL Calcium 8.7 (8.4-10.2) mg/dL Total Bilirubin 0.7 (0.2-1.3) mg/dL AST 25 (17-59) U/L ALT 16 (6-50) U/L Alkaline Phosphatase 37 L (38-126) U/L Total Protein 6.4 (6.3-8.2) g/dL Albumin 3.7 (3.5-5.1) g/dL Imaging Data Radiologist's impression: ITS Impressions Chest X-Ray 09/19/25 08:46 IMPRESSION: 1. Tiny bilateral pleural effusions. 2. Cardiomegaly. Discharge Plan Discharge Clinical Impression: Acute viral syndrome, Elevated INR Patient Disposition: Home Condition: Stable Instructions: Viral Syndrome (ED) Additional Instructions: As discussed you have a viral illness. Unfortunately there are no specific medications we can give you to make the illness end faster. Antibiotics do not work for viral illnesses. However, you can take Acetaminophen or Ibuprofen to help with fevers and pain. Stay well hydrated and rested. Return to the emergency department if your fevers and chills continue to worse after 5 days, if you develop worsening cough with thick sputum, or are unable to stay hydrated. Contact your primary care provider in the next few days for a re-evaluation and to make sure your symptoms are improving. Your INR was elevated, you will likely need to skip 1 dose and then restart your medication. Contact your wool grader for further planning. Patient Language: Telugu Prescriptions: No Action albuterol sulfate 90 mcg/actuation HFA aerosol inhaler 1 puff inhalation Q4H PRN (Reason: shortness of breath or wheezing) Qty: 8.5 1RF Kerendia 20 mg tablet 20 mg PO DAILY dipyridamole 75 mg tablet 75 mg PO Q8H Rx Instructions: administer 1 hour before or 2 hours after food or meals ferrous sulfate 325 mg (65 mg iron) tablet,delayed release (DR/EC) 325 mg PO DAILY mecobalamin (vitamin B12) 1,000 mcg tablet,chewable 1,000 mcg PO DAILY Entresto 97-103 mg tablet 1 tablet PO BID atorvastatin 40 mg tablet 40 mg PO DAILY Jardiance 10 mg tablet 10 mg PO DAILY cholestyramine (with sugar) 4 gram powder in packet PO gabapentin 300 mg capsule 300 mg PO Q6-8H calcitriol 0.25 mcg capsule 0.25 mcg PO DAILY hydrocodone-acetaminophen 7.5-325 mg tablet 1 tablet PO BID PRN ropinirole 2 mg tablet 2 mg PO DAILY furosemide [Lasix] 20 mg tablet 20 mg PO QAM triamcinolone acetonide 0.1 % cream 1 applic topical BID warfarin 7.5 mg tablet PO Ozempic 2 mg/dose (8 mg/3 mL) pen injector subcut finasteride 5 mg tablet 5 mg PO DAILY warfarin 5 mg tablet See Rx Instructions .ROUTE .COMPLEX Rx Instructions: Takes 5mg po on , Tue, , Tue, Sat, Sun. Takes 4mg po on Tuesday only. (DME) pen needle, diabetic [BD Ultra-Fine Mini Pen Needle] 31 gauge x 3/16 needle See Rx Instructions .ROUTE .COMPLEX Qty: 100 3RF Dose Instruction: USE DAILY WITH LEVEMIR Rx Instructions: USE DAILY WITH LEVEMIR nitroglycerin 0.4 mg tablet, sublingual 0.4 mg sublingual Q5M PRN (Reason: chest pain) Qty: 30 0RF Rx Instructions: do not exceed 3 doses per episode (DME) OneTouch Ultra Test Strip See Rx Instructions .Route Qty: 100 2RF Rx Instructions: Use to check BS BID albuterol sulfate 2.5 mg /3 mL (0.083 %) solution for nebulization 2.5 mg inhalation Q4-6H PRN (Reason: shortness of breath or wheezing) Qty: 75 0RF pantoprazole 40 mg tablet,delayed release (DR/EC) 40 mg PO QAM Qty: 90 0RF Rx Instructions: NEEDS APPOINTMENT FOR FURTHER REFILLS tamsulosin 0.4 mg capsule 0.4 mg PO DAILY Qty: 90 0RF Rx Instructions: NEEDS APPOINTMENT FOR FURTHER REFILLS Follow-up/Referrals: Leonardo,MD Tiana [Primary Care Provider, Unknown] - 1 Week
--- OUTSIDE RECORDS SUMMARY | 2025-09-19 08:59 | XMS_ITS | Clinical Summary ---
Author Organization [facility] Facility Address [address] [facility] [address] [address] Care Team Providers Care Pcmh Specialist Name Role Phone Tiana Patterson MD Primary Care Provider [phone] Encounters Date Type Department Care Team Description 07/19/2025 Documentation Only [facility], [facility] [address] [place] [phone] Jv Sterans DO from Last 3 Months Social History Tobacco [...] st Contact Info) Description 10/08/2025 2:30 PM ROLLER MILL OPERATOR Office Visit [facility], [facility] [address] [place] [address] [address] [place] [address] Jv Stearns DO [address] [place] [phone] Health Maintenance Due Date Last Done [...] Colorectal Cancer Screening: Colonoscopy 08/17/2034 08/17/2024 Insurance [facility] Care Teams Pcmh Specialist Relationship Specialty Start Date End Date Tiana Patterson MD [address] [place], [facility] [address] [place] [address] PCP - General Internal Medicine 06/11/25
--- OUTSIDE RECORDS SUMMARY | 2025-09-19 08:59 | XMS_ITS | Clinical Summary ---
Author Organization [facility] Address [address] [place] [address] Care Team Providers Care Internet Sales Manager Name Role Phone Tiana Patterson MD Primary [...] Encounters Date Type Department Care Team Description 08/13/2025 External Device Data STL ABSTRACTION Provider, Abstract 07/16/2025 External Device Data [facility]CTION Provider, [...] on file Legal Sex Male 3:06 PM CONVERSION MAN Gender Identity Not on file Sexual Orientation [...] cm (5' 10) 11/01/2024 11: 29 AM CONVERSION MAN Body Mass Index 33.78 11/01/2024 11:29 AM CONVERSION MAN Plan of Treatment Upcoming Encounters Date Type Department Care Team (Late st Contact Info) Description 11/22/2025 9:15 AM CONVERSION MAN Office Visit [facility] Oncology and H[facility]ology - [place] [address] [facility] [address] [place] [address] Tommy Ruiz MD [address] [facility] [address] [place] [address] Health Maintenance Due Date Last [...] Additional history exists Colorectal Cancer Screening 08/17/2034 Insurance MEDICARE PART A AND B BC SUPP Care Teams Internet Sales Manager Relationship Specialty Start Date End Date Tiana Patterson MD [address] [place] [phone] PCP - General Internal Medicine 11/02/24
--- OUTSIDE RECORDS SUMMARY | 2025-09-19 09:00 | XMS_ITS | Patient Health Record ---
Author Organization [facility] Address [address] [place] [address] [place] [address] Care Team Providers Care Field Clinical Engineer Name Role Phone Gigi Justin Unavailable [phone] Reason For Referral No Information Medications Medication SIG (Take, Route, Frequency, Duration) Notes Start Date End Date Status Ergocalciferol 1.25 MG (73202 UT) 1 capsule Orally Once a week; Duration: 90 day(s) 04/25/2024 09/29/2025 Active Calcitriol 0.25 MCG 1 capsule Orally Onc e a day; Duration: 90 day(s) 04/25/2024 09/29/2025 Active Social History Sex Assigned At : Social History Observation Description Sex Assigned At Male Problems Problem Type SNOMED Code ICD Code Onset Dates Problem Status W/U Status Risk Notes Problem Hyperlipidemia (01461173) Hyperlipidemia, unspecified (E78.5) Active confirmed Problem Anxiety disorder (363462225) Anxiety disorder, unspecified (F41.9) Active confirmed Problem Chronic pain (88697708) Other chronic pain (G89.29) Active confirmed Problem Aortic valve disorder (0646795) Nonrheumatic aortic (valve) stenosis (I35.0) Active confirmed Problem Sick sinus syndrome (24980261) Sick sinus syndrome (I49.5) Active confirmed Problem Heart failure (73833432) Heart failure, unspecified (I50.9) Active confirmed Problem Chronic kidney disease stage 2 (816208298) Chronic kidney disease, stage 2 (mild) (N18.2) Active confirmed Problem Renal osteodystrophy (69914720) Renal osteodystrophy (N25.0) Active confirmed Problem Chronic fatigue syndrome (disorder) (82694474) Chronic fatigue, unspecified (R53.82) Active confirmed Problem Glycosuria (92700197) Glycosuria (R81) Active confirmed Problem History of malignant neoplasm of larynx (127888662) 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) Active confirmed Problem Benign prostatic hypertrophy without outflow obstruction (400209838) Benign prostatic hyperplasia without lower urinary tract symptoms (N40.0) Active confirmed Problem Coronary artery disease (08506015) CAD (coronary artery disease) (I25.10) Active confirmed Encounters Encounter Location Date Provider Diagnosis [facility] [address] [address] 12/12/2024 Gigi Justin Chronic kidney disea se, stage 3a N18.31 ; 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 ; Hyperlipidemia, unspecified E78.5 ; CAD (coronary artery disease) I25.10 and Benign prostatic hyperplasia without lower urinary tract symptoms N40.0 [facility] [address] [place] [address] 01/02/2025 Gigi Justin Chronic kidney disea se, stage 2 (mild) N18.2 ; Anxiety disorder, unspecified F41.9 ; Chronic fatigue, unspecified R53.82 ; Renal osteodystrophy N25.0 ; Heart failure, unspecified I50.9 ; 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 ; Hyperlipidemia, unspecified E78.5 ; CAD (coronary artery disease) I25.10 and Benign prostatic hyperplasia without lower urinary tract symptoms N40.0 [facility] [address] [address] 02/13/2025 Gigi Justin Chronic kidney disea se, [...] G89.29 and Nonrheumatic aortic (valve) stenosis I35.0 [facility] [address] [address] 06/12/2025 Gigi Justin Chronic kidney disea se, [...] stenosis I35.0 and Sick sinus syndrome I49.5 [facility] [place] [facility] [address] [place] [address] 12/19/2024 Gigi Justin [place] [facility] [address] [facility] [address] [place] [address] 01/02/2025 Gigi Justin Assessments Encounter Date Diagnosis [...]
--- OUTSIDE RECORDS SUMMARY | 2025-09-19 09:00 | XMS_ITS | Encounter Summary ---
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
--- OUTSIDE RECORDS SUMMARY | 2025-09-19 09:00 | XMS_ITS | Encounter Summary ---
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
--- OUTSIDE RECORDS SUMMARY | 2025-09-19 09:00 | XMS_ITS | Encounter Summary ---
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
--- OUTSIDE RECORDS SUMMARY | 2025-09-19 09:00 | XMS_ITS | Clinical Summary ---
Author Organization [facility] Address [address] [facility] [place] [address] Care Team Providers Care Production Service Manager Name Role Phone Bennie Nova MD Primary Care Provider Alison jeronimo Source Comments [facility],non-owned Affiliates and Associated Physician Practices is amultiple site organization consisting of ambulatory clinics and hospital sitesin [place], [place], [place] and [place]. This disclosure is being madepursuant to the Care Everywhere program and may not contain all information available regarding this patient. Last updated 18.[facility] Allergies No known active allergies Medications * [...] on file Legal Sex Male 10:01 AM GRITTING MACHINE OPERATOR Gender Identity Not on file Sexual Orientation Not on file Last Filed Vital Signs Vital Sign Reading Time Taken Comments Blood Pressure 182/85 10/09/2012 3:10 PM GRITTING MACHINE OPERATOR Pulse 70 10/09/2012 3:10 PM GRITTING MACHINE OPERATOR Temperature 36.7 C (98.1 F) 12/29/2010 11:35 AM GRITTING MACHINE OPERATOR Respiratory Rate 16 12/29/2010 11:35 AM GRITTING MACHINE OPERATOR Oxygen Saturation - - Inhaled Oxygen Concentration - - Weight 173.3 kg (382 lb) 10/09/2012 3:10 PM GRITTING MACHINE OPERATOR Height 177.8 cm (5' 10) 10/09/2012 3:10 PM GRITTING MACHINE OPERATOR Body Mass Index 54.81 10/09/2012 3:10 PM GRITTING MACHINE OPERATOR Plan of Treatment Health Maintenance Due [...] patient's age to complete this topic Insurance [facility] MEDICARE [facility] BLUE [facility] MEDICARE Care Teams Production Service Manager Relationship Specialty Start Date End Date Bennie Nova MD PCP - General Internal Medicine 10/10/12
--- OUTSIDE RECORDS SUMMARY | 2025-09-19 09:00 | XMS_ITS | Clinical Summary ---
Author Organization [facility] Address [address] [place] [address] Care Team Providers Care Registered Respiratory Therapist Name Role Phone Unavailable Primary Care Provider [...] - 1-dose 75+ series) 2025 COVID-19 Vaccine (1 - 2024-2 6 season) 2025 Influenza Adult (#1) 2025 Hepatitis A Vaccines Aged Out No long er eligible based on patient's age to complete this topic Meningococcal B Vaccine Aged Out No l onger eligible based on patient's age to complete this topic Meningococcal Vaccine Aged Out No francisco rani eligible based on patient's age to complete this topic RSV Immunizations Under 20 Months Aged Out No longer eligible based on patient's age to complete this topic Insurance MEDICARE [facility]
--- OUTSIDE RECORDS SUMMARY | 2025-09-19 09:00 | XMS_ITS | Encounter Summary ---
Author Organization [facility] Address [address] [place] [address] Care Team Providers Care Occupational Medicine Physician Name Role Phone Bennie Nova MD Primary Care Provider Alison jeronimo Encounter Details Date Type Department Care Team (Late st Contact Info) Description 04/13/2024 Lab Requisition [facility] - DermPath Lab [address] [place] [address] Lou Clark PA-C [address] [place] [address] Neoplasm of uncertain behavior of skin Social History Tobacco Use Types Packs/Day Years Used Date Smoking Tobacco: Never Alcohol Use Standard Drinks/Week Comments Not Asked 0 (1 standard drink = 0.6 oz pur e alcohol) Sex and Gender Information Value Date Recorded Sex Assigned at Not on file 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 Gender Identity Not on file Sexual Orientation Not on file documented as of this encounter Plan of Treatment Not on file documented as of this encounter Procedures Procedure Name Priority Date/Time Associated Diagnosis Comments DERMATOPATHOLOGY Routine 04/13/2024 12:0 0 AM CDT Neoplasm of uncertain behavior of skin documented in this encounter Results * DERMATOPATHOLOGY (04/13/2024 12:00 AM CDT) Case Report Dermatopathology Report Case: [id number] Authorizing Provider: Lou Clark, Collected: 04/13/2024 12:00 AM HELEN Ordering Location: [facility] - Received: 04/16/2024 11:01 AM [...] determined by the Dermatopathology Laboratory at [facility], directed by Dr. Luba Garcia. These tests need not be, and therefore are not, approved by the [place] Food and Drug Administration. The tests are used for clinical purposes. Billing Codes Specimen Charges Stain Charges 41491 55261 1 1 4 1:29 PM CDT DERMATOPATHOLOGY LABORATORY Embedded Images 1:29 PM CDT DERMATOPATHOLOGY LABORATORY Pathology/Cytology TISSUE SPECIMEN FROM SKIN / Unknown 04/13/2024 04/16/2024 11:01 AM CDT Miscellaneous samples (specimen) TISSUE SPECIMEN FROM SKIN / Unknown 04/13/2024 04/16/2024 11:01 AM CDT Lou Clark PA-C LAB - PATHOLOGY/CYTO LOGY ORDERABLES Final Result DERMATOPATHOLOGY LABORATORY [facility] - Department of Dermatology [facility] Medicine [address] [place] [address], [address] [phone] documented in this encounter Visit Diagnoses Diagnosis Neoplasm of uncertain behavior of skin documented in this encounter Care Teams Occupational Medicine Physician Relationship Specialty Start Date End Date Bennie Nova MD PCP - General Internal Medicine 10/10/12 documented as of this encounter
--- OUTSIDE RECORDS SUMMARY | 2025-09-19 09:00 | XMS_ITS | Clinical Summary ---
Author Organization [facility] Address [address] [place] [address] Care Team Providers Care Supreme Court Judge Name Role Phone Fabian Patterson MD Primary [...] (5 mg total) by mouth daily Active cholestyramine- aspartame (QUESTRAN LIGHT) 4 gram powder in packet Active HYDROcodone-missy taminophen (XODOL) 7.5-300 mg per tablet Take 1 [...] mouth daily 90 tablet 3 02/06/20 25 2025 Active ezetimibe (ZETIA) 10 mg tablet Take 1 tablet (10 mg total) by mouth daily 90 tablet 3 02/06/20 25 2025 Active sacubitriL-vals yael (ENTRESTO) 97-103 mg tabletIndicatio ns:chronic heart failure Take 1 tablet by mouth 2 (two) times a day 180 tablet 3 02/06/20 25 2025 Active dipyridamole (PERSANTINE) 75 mg tablet Take 1 tablet (75 mg total) by mouth 4 (four) times a day 360 tablet 3 02/06/20 25 2025 Active ferrous sulfate 325 mg (65 mg of elemental iron) tablet Take 1 tablet (325 mg total) by mouth daily 03/26/20 25 Active nitroglycerin (NITROSTAT) 0.[address] 1 TABLET UNDER THE TONGUE EVERY 5 MINUTES, UP TO 3 DOSES NEEDED FOR CHEST PAIN Active rOPINIRole (REQUIP) 2 mg tablet Take 1 tablet (2 mg total) by mouth nightly as needed 04/15/20 Active furosemide (LASIX) 20 mg tablet TAKE 1 TABLET BY MOUTH EVERY DAY 90 tablet 2 06/17/20 25 Active warfarin (COUMADIN) 7.5 mg tablet TAKE 1 TABLET BY MOUTH ONCE A WEEK 12 tablet 09/17/20 25 Active warfarin (Coumadin) 7.5 mg tablet Take 1 tablet (7.5 mg total) by mouth once a week 12 tablet 06/28/20 25 2024 Discontinued Active Problems Problem Noted Date Diagnosed Date [...] Encounters Date Type Department Care Team Description 09/09/2025 Anticoagulation Visit [facility] Cardiology [address] [facility] [address] [place] [address] Lou White, RN 08/07/2025 Orders Only [facility] [address] [place] [address] Scanning, Provider 08/07/2025 Telephone [facility] Cardiology [address] [facility] [address] [place] [phone] Jonah Momin MD INR results 08/07/2025 Anticoagulation Visit [facility] Cardiology [address] [facility] [address] [place] [address] Lou White, RN 07/10/2025 Orders Only [facility] Information Management [address] [place] [address] Scanning, Provider 07/10/2025 Anticoagulation Visit [facility] Cardiology [address] [facility] [address] [place] [phone] Hilda Robledo, RN from Last 3 Months Surgical History Surgery [...] on file 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 Gender Identity Not on file Sexual Orientation Not on file Last Filed Vital Signs Vital Sign Reading Time Taken Comments Blood Pressure 120/70 05/07/2025 8:56 AM CDT Pulse 85 05/07/2025 8:56 AM CDT Temperature 36.7 C (98.1 F) 08/17/2024 9:05 AM CDT Respiratory Rate 16 10/02/2024 12:46 PM IT COMMUNICATIONS SPECIALIST Oxygen Saturation 97% 05/07/2025 8:56 AM [...] 2015 eGFR 07/29/2024 07/29/2023 Covid-19 Vaccine ( season) 2025 09/08/2021, 01/12/2021, 12/12/2020 Lipid Panel 02/05/2026 02/05/2025, 04/02/2016 Colon Cancer Screening-Colonoscopy 08/17/20342023 Zoster Vaccine Completed 12/26/2023, 10/25/2023 Influenza Vaccine Completed 08/23/2025, , 09/22/2020 Medical Devices Implanted Type Area Explosives Detonator Device Identifier Shelf Expiration Date Model / Serial / Lot Pacemaker Pacemaker N/A: Heart Plate Plate Left: Knee Prosthetic Valve Prosthetic Valve Bilateral : Heart Procedures Procedure Name Priority Date/Time Associated Diagnosis Comments PROTIME-INR Routine 09/09/2025 SCAN - LABS 08/07/2025 PROTIME-INR Routine 08/07/2025 SCAN - LABS 07/10/2025 PROTIME-INR Routine 07/10/2025 POCT LIPID PANEL Routine 02/05/2025 8:45 AM CDT Atherosclerosis of grayling coronary artery of grayling heart without angina pectoris COLONOSCOPY 08/17/2024 8:17 AM CDT EGFR STAT 07/29/2023 10:21 AM CDT from Last 3 Months or Most Recently Relevant to Health Maintenance Results * (ABNORMAL) Protime-INR (09/09/2025) INR 5.00(A) 0.90 - 1.10 EXTERNAL LAB Blood Result [facility] Historical Provider MD LAB BLOOD ORDERABLES Kim l Result Performing Organization Address [place] Co de Phone Number EXTERNAL LAB * SCAN - LABS (08/07/2025) Result [facility] Provider Scanning Final Result * (ABNORMAL) Protime-INR (08/07/2025) INR 1.80(A) 0.90 - 1.10 EXTERNAL LAB Blood Result [facility] Provider MD LAB BLOOD ORDERABLES Kim l Result Performing Organization Address [facility] de Phone Number EXTERNAL LAB * SCAN - LABS (07/10/2025) Result [facility] Provider Scanning Final Result * (ABNORMAL) Protime-INR (07/10/2025) INR 2.90(A) 0.90 - 1.10 EXTERNAL LAB Blood Result [facility] Provider MD LAB BLOOD ORDERABLES Kim l Result Performing Organization Address [place] Co de Phone Number EXTERNAL LAB * POCT lipid panel (02/05/2025 8:45 AM CDT) Cholesterol, POC <100 mg/dL HDL, POC 43 mg/dL Triglycerides, POC 82 mg/dL LDL Cholesterol POC 39.6 mg/dL Chol/HDL Ratio, POC n/a Non-HDL Cholesterol, POC n/a mg/dL Cholesterol Total, POC <100 mg/dL Capillary blood 02/05/2025 8 :45 AM CDT Result [facility] Jonah Momin MD POINT OF CARE TEST ORDERABLES Fi nal Result * Colonoscopy (08/17/2024 8:17 AM CDT) Anatomical Region Laterality Modality Other Narrative Procedure Note Meryl Spears MD - 08/17/2024 8:17 AM CDT [facility] GI ENDOSCOPY Patient Name: Reggie Nevarez Procedure Date: 08/17/2024 8:17 AM Date of : 1950 Admit Type: Outpatient Age: 74 Gender: Male Attending MD: Meryl Spears M.D. Room: [facility] ENDOSCOPY ROOM 05 Note [...] polypectomy, one hemostaticclip was successfully placed. Clip bowling ball finisher: [place]. Therewas no bleeding at the end of [...] Resected and retrieved. Clip was placed. Clip bowling ball finisher: Storehouse. - Diverticulosis in the left colon. Biopsied. - The distal rectum and anal verge are normal on retroflexion view. Recommendation: - Resume previous diet. - Continue present medications. - Await pathology results. Meryl Spears M.D. Meryl Spears M.D. 08/17/2024 9:11:17 AM . Number of Addenda: 0 Note Initiated On: 08/17/2024 8:17 AM Recognized by the [place] [employer] for promoting quality [...] MD LAB BLOOD ORDERABLES Final Result [facility] Department [place] [address] from Last 3 Months or Most Recently Relevant to Health Maintenance Insurance MEDICARE [facility] Member Subscriber Plan / Payer (Ef fective 2008-Present) Name:Reggie Nevarez Relation to Subscriber:Self Name:Reggie Nevarez Payer ID:[id number] (NAIC) Type:[facility] [employer] Address: [address] [place] [address] MEDICARE BLUE CROSS MEDICARE SUPPLEMENT MEDICARE [facility] MEDICARE SUPPLEMENT Member Subscriber Plan / Payer ( fective 2008-Present) Name:Reggie Nevarez Relation to Subscriber:Self Name:Reggie Nevarez Payer ID:[id number] Type:COMMERCIAL Address: [address] [place] [id number] Care Teams Supreme Court Judge Relationship Specialty [place] [address] [place] [address] [address] [place] [address] PCP - General Internal Medicine 05/07/25
--- OUTSIDE RECORDS SUMMARY | 2025-09-19 09:00 | XMS_ITS | Patient Health Record ---
Author Organization [facility] Address [address] [place] [address] Support Name Relationship Address Phone Malcolm Nevarez Guarantor Unknown [phone] Reason For Referral No Information Plan Of Treatment No Information Insurance Providers Payer Name Payer Address Payer Phone Subscriber Number Group Number Insured Name Patient Relationship to Insured Coverage Start Date Coverage End Date [facility] [address] [place] [address] [id number] Malcolm Nevarez Self - patient is the insured 0 [employer] [place] [address] [address] [place] [address] [id number] Malcolm Nevarez Self - patient is the insured 7 [facility] [address] [place] [address] [id number] Malcolm Nevarez Self - patient is the insured 8
--- OUTSIDE RECORDS SUMMARY | 2025-09-19 09:00 | XMS_ITS | Encounter Summary ---
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
--- OUTSIDE RECORDS SUMMARY | 2025-09-19 09:01 | XMS_ITS | Encounter Summary ---
Author Organization [facility] Address [address] [place] [address] Care Team Providers Care K 9 Handler/ Deputy Name Role Phone Bennie Nova MD Primary Care Provider Unava ilable Encounter Details Date Type Department Care Team (Late st Contact Info) Description 11/21/2019 Lab Requisition [facility] [address] [facility] [place] [address] Hali Fletcher DO [address] [facility] [address] [place] [address] Social History Tobacco Use Types Packs/Day Years Used Date Smoking Tobacco: Never Alcohol Use Standard Drinks/Week Comments Not Asked 0 (1 standard drink = 0.6 oz pur e alcohol) Sex and Gender Information Value Date Recorded Sex Assigned at Not on file 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 Gender Identity Not on file Sexual Orientation Not on file documented as of this encounter Plan of Treatment Not on file documented as of this encounter Procedures Procedure Name Priority Date/Time Associated Diagnosis Comments DERMATOPATHOLOGY Routine 11/20/2019 12:0 0 AM COSTUMED CHARACTER documented in this encounter Results * DERMATOPATHOLOGY (11/20/2019 12:00 AM COSTUMED CHARACTER) Case Report Dermatopathology Report Case: [id number] Authorizing Provider: Hali Fletcher DO Collected: 11/20/2019 12:00 AM Ordering Location: [facility] DermPath Lab Received: 11/21/2019 01:31 PM Pathologist: Warner Garcia MD Specimen: Skin, left cheondoism 0 7:23 PM [facility] DERMATOPATHOLOGY LABORATORY Final Diagnosis Specimen A. SKIN, left cheondoism: SQUAMOUS CELL CARCINOMA, WELL DIFFERENTIATED (C44.329) 0 7:23 PM [facility] DERMATOPATHOLOGY LABORATORY at [address] [facility] Clinical History R/O NMSC, non-healing. 0 7:23 PM COSTUMED CHARACTER DERMATOPATHOLOGY LABORATORY Gross Description Specimen A: Received is one formalin filled container labeled with the patient's name and designated left cheondoism. The specimen consists of a shave measuring [id number]. Jar 0. 0 7:23 PM [facility] DERMATOPATHOLOGY LABORATORY Microscopic Description Specimen A. SKIN, left cheondoism: Arising in the epidermis and extending into the dermis there are irregularly shaped aggregates of keratinocytes showing evidence of premature cornification. 0 7:23 PM COSTUMED CHARACTER DERMATOPATHOLOGY LABORATORY Disclaimer An external and internal positive and negative controls are appropriate for the histochemical, immunohistochemical and immunofluorescence stain(s) in this case (if any), except where stated explicitly. The performance characteristics of the stain(s) cited in this report were developed and its performance characteristic determined by the Dermatopathology Laboratory at [facility], directed by Dr. Luba Garcia. These tests need not be, and therefore are not, approved by the [place] Food and Drug Administration. The tests are used for clinical purposes. Billing Codes Specimen Charges Stain Charges 01296 1 0 7:23 PM COSTUMED CHARACTER DERMATOPATHOLOGY LABORATORY Embedded Images 0 7:23 PM [facility] DERMATOPATHOLOGY LABORATORY Pathology/Cytolog y TISSUE SPECIMEN FROM SKIN / Unknown 11/20/2019 11/21/2019 1:31 PM [facility] us Hali Fletcher DO LAB - PATHOLOGY/CYTOLOGY ORDERABLES Final Result DERMATOPATHOLOGY LABORATORY [facility] - Department of Dermatology [address] 5th [address] Lab [address] [phone] documented in this encounter Visit Diagnoses Not on filedocumented in this encounter Care Teams K 9 Handler/ Deputy Relationship Specialty Start Date End Date Bennie Nova MD PCP - General Internal Medicine 10/10/12 documented as of this encounter
[2025-09-19 09:48] VITALS: BP 109/67; PULSE 89; RESP 19; O2SAT 100
== END 2025-09-19 10:40 | disposition home or self-care (01) ==
PROVIDERS: Emergency Provider Emergency Medicine; PCP Internal Medicine
DX: B34.9 Viral infection, unspecified (principal); I25.2 Old myocardial infarction; I48.0 Paroxysmal atrial fibrillation; I25.10 Atherosclerotic heart disease of native coronary artery without angina pectoris; I50.9 Heart failure, unspecified; I11.0 Hypertensive heart disease with heart failure; E78.5 Hyperlipidemia, unspecified; E11.9 Type 2 diabetes mellitus without complications; K21.9 Gastro-esophageal reflux disease without esophagitis; M19.90 Unspecified osteoarthritis, unspecified site; F41.9 Anxiety disorder, unspecified; Z95.0 Presence of cardiac pacemaker; Z95.1 Presence of aortocoronary bypass graft; Z96.652 Presence of left artificial knee joint; Z95.2 Presence of prosthetic heart valve; Z98.84 Bariatric surgery status; Z85.828 Personal history of other malignant neoplasm of skin; Z85.21 Personal history of malignant neoplasm of larynx; Z79.01 Long term (current) use of anticoagulants; Z79.84 Long term (current) use of oral hypoglycemic drugs; Z79.899 Other long term (current) drug therapy; Z79.85 Long-term (current) use of injectable non-insulin antidiabetic drugs; I51.7 Cardiomegaly
CPT/HCPCS: 36415; 71046; 80053; 85025; 85610; 85730; 94640; 99283

== ENCOUNTER 2025-09-27 08:28 | Emergency (ER) | payer MEDICARE, SELFPAY ==
--- NOTE | ~2025-09-27 | XR_ITS ---
EXAMINATION: XR chest 2V, 09/27/2025 9:07 DIRECTOR OF PUPIL PERSONNEL PROGRAM HISTORY: cough x 5 weeks nonsmoker COMPARISON: No comparisons available. Technique: 2 views obtained. Findings: Mild pulmonary venous congestion. No pneumothorax. Moderate cardiomegaly. Mediastinal and hilar contours are within normal limits. Post sternotomy. Left pacemaker. Impression: Mild CHF Reviewed, dictated and finalized at location P. CTOR OF PUPIL PERSONNEL PROGRAM Impression: Mild CHF
--- NOTE | 2025-09-27 08:36 | ED.GENADULT ---
HPI - General Adult General Chief complaint: Upper Respiratory Infection Stated complaint: Sinus Time Seen by Provider: 09/27/25 08:56 Source: patient, RN notes reviewed and old records reviewed Mode of arrival: ambulatory Limitations: no limitations History of Present Illness HPI narrative: 75-year-old male presents to the [facility] with complaints of cough, chest congestion for approximately 5 weeks. Patient reports that he received his flu and COVID vaccine. Had been called in antibiotics both by his primary care provider and from an urgent care. Was seen local ER and states that he had a workup to include blood work and a chest x-ray. Patient states that he has been using his nebulizer and Flonase on regular basis, nebulizer 3 times a day. Flonase twice a day. Patient reports that the cough and shortness of breath have been increasing especially at night over the last several days. Reports that he called his primary care provider, concern he might have pneumonia. Patient denies any chest pain. Patient with a significant cardiac history, has a pacemaker. Patient also on Coumadin Onset (ago): week(s) (5) Treatments prior to arrival: other ( nebulizer, multiple rounds of antibiotics) Related Data Home Medications ?Medication ?Instructions ?Recorded ?Confirmed ?Last Taken ?Type finasteride 5 mg tablet 5 mg PO DAILY 08/12/23 08/16/25 08/11/23 History warfarin 5 mg tablet See Rx Instructions .Route .COMPLEX 08/12/23 08/16/25 08/11/23 History triamcinolone acetonide 0.1 % 1 applic topical BID 08/26/23 08/16/25 Unknown History topical cream atorvastatin 40 mg tablet 40 mg PO DAILY 05/07/24 08/16/25 Unknown History cholestyramine (with sugar) 4 gram ea PO 05/07/24 08/16/25 Unknown History powder for susp in a packet dipyridamole 75 mg tablet 75 mg PO Q8H 05/07/24 08/16/25 Unknown History empagliflozin 10 mg tablet 10 mg PO DAILY 05/07/24 08/16/25 Unknown History (Jardiance) ferrous sulfate 325 mg (65 mg 325 mg PO DAILY 05/07/24 08/16/25 Unknown History iron) tablet,delayed release finerenone 20 mg tablet (Kerendia) 20 mg PO DAILY 05/07/24 08/16/25 Unknown History mecobalamin (vitamin B12) 1,000 1,000 mcg PO DAILY 05/07/24 08/16/25 Unknown History mcg chewable tablet sacubitril 97 mg-valsartan 103 mg 1 tablet PO BID 05/07/24 08/16/25 Unknown History tablet (Entresto) semaglutide 2 mg/dose (8 mg/3 mL) mg subcut 08/08/24 08/16/25 Unknown History subcutaneous pen injector (Ozempic) warfarin 7.5 mg tablet mg PO 08/08/24 08/16/25 Unknown History calcitriol 0.25 mcg capsule 0.25 mcg PO DAILY 05/17/25 08/16/25 Unknown History gabapentin 300 mg capsule 300 mg PO Q6-8H 05/17/25 08/16/25 Unknown History furosemide 20 mg tablet (Lasix) 20 mg PO QAM 08/16/25 08/16/25 Unknown History hydrocodone 7.5 mg-acetaminophen 1 tablet PO BID PRN pain 08/16/25 08/16/25 Unknown History 325 mg tablet ropinirole 2 mg tablet 2 mg PO DAILY 08/16/25 08/16/25 Unknown History Allergies Allergy/AdvReac Type Severity Reaction Status Date / Time No Known Allergies Allergy Verified 09/27/25 10:11 Review of Systems Review of Systems: All systems reviewed & are unremarkable except as noted in HPI and below Constitutional: Constitutional: Reports no additional constitutional complaints ENT: Reports system reviewed and no additional complaints, except as documented Cardiovascular: Cardiovascular: Reports as per HPI, Denies chest pain, Reports dyspnea and Reports orthopnea Respiratory: Respiratory: Reports as per HPI, Reports chest congestion, Reports cough and Reports dyspnea Gastrointestinal: Gastrointestinal: Reports no additional gastrointestinal complaints Musculoskeletal: Musculoskeletal: Reports no additional musculoskeletal complaints Integumentary/Breasts: Skin/Breast: Reports system reviewed and no additional complaints, except as docu PMFSH Past Medical History Medical History Cancer of larynx History of heart attack Pacemaker PAF (paroxysmal atrial fibrillation) Morbid obesity due to excess calories Anemia Cellulitis Heart disease Heart attack CHF (congestive heart failure) CAD (coronary artery disease) Skin cancer Allergies Dyslipidemia HTN (hypertension) Arthritis Anxiety GERD (gastroesophageal reflux disease) Diabetes Surgical History Surgical History History of knee surgery trauma to both knees History of neck surgery History of bariatric surgery History of left knee replacement History of open heart surgery 1994 Open heart Mechanical Valve 2004 Family History Family History Father Diabetes mellitus Heart disease Hypertension Mother Heart disease Social History Social History Smoking status: Never smoker Alcohol intake: never Substance use: never Current Housing: Decline to Answer Concerned About Future Housing: Decline to Answer Difficulty Paying Gas/Electric Bills: Decline to Answer Difficulty Paying for Meds: Decline to Answer Currently Unemployed: Decline to Answer Education: Decline to Answer Difficulty w/ Childcare or Family Care: Decline to Answer Spiritual care concerns: No Comments At the time of my signature, I reviewed and agree with the nursing past medical, surgical, social, and family history. There is no relevant family history pertinent to the patient complaint. Exam Const: General: cooperative, no acute distress, well developed, alert, ill appearing chronically and well nourished Nutritional Appearance: well nourished and obese Orientation/consciousness: patient oriented x3 Limitations: no limitations HENMT: Head: normal to inspection Ears: hearing grossly normal bilaterally, external ears normal, TM's normal bilaterally, EAC's normal, mastoids normal and no periauricular adenopathy Mouth: Yes Normal oral and palatal mucosa present, Yes lip normal, Yes tongue normal and Yes moist mucous membranes Throat: posterior oropharynx normal, uvula midline and no uvular edema Eyes: General: appearance normal, both eyes and all related structures Alignment and Position: alignment normal Neck: Neck: normal visual inspection, full ROM, no lymphadenopathy and no meningeal signs Chest: Chest palpation & inspection: normal inspection of the chest Resp: Effort & Inspection: normal respiratory effort and able to speak in complete sentences Auscultation: no crackles, no rales, no rhonchi, no wheezes and diminished lung sounds bilateral in the lower lung hardin Cardio: Rate: regular rate Skin: General skin exam: normal color and no rashes or lesions noted Neuro: General: patient oriented x3, gait normal, moves all extremities and no meningeal signs Cognition (Neuro): normal cognition Speech: normal speech Gait exam (Neuro): Normal gait present Extrem: General: normal to inspection, full ROM, capillary refill normal and normal gait Psych: Appearance: grossly normal and well kempt Mental Status: mental status grossly normal Speech and movement: Normal speech and movement present and Clear speech present Affect: normal affect Attitude: cooperative Course Course Level of Care: Express Care Visit Vital Signs Vital signs: Vital Signs Temperature 97.6 F 09/27/25 08:48 Pulse Rate 83 09/27/25 08:48 Respiratory Rate 20 09/27/25 08:48 Blood Pressure 92/55 L 09/27/25 08:48 Pulse Oximetry 99 09/27/25 08:48 Oxygen Delivery Room Air 09/27/25 08:48 Temperature 97.6 F 09/27/25 08:48 Pulse Rate 83 09/27/25 08:48 Respiratory Rate 20 09/27/25 08:48 Blood Pressure 92/55 L 09/27/25 08:48 Pulse Oximetry 99 09/27/25 08:48 Oxygen Delivery Room Air 09/27/25 08:48 Reviewed Transfer Transfered to: [facility] ( Per patient request) Transportation: Other ( POV, declined EMS) Transfer rationale: patient with a 5 week history of cough. Increasing shortness of breath. History of congestive heart failure. Chest x-ray showed congestive heart failure, sending for higher level of care. Accepting physician: Dr. Blake Medical Decision Making [facility] Narrative Medical decision making narrative: patient sitting in exam room. Patient is nontoxic, vitals stable except blood pressure soft. Patient on multiple cardiac medications. Patient presents 5 weeks of a cough, worsening over last several days. Patient reports that the cough and shortness of breath is worse when laying down at night. patient has had multiple rounds of antibiotics which he says has not changed his symptoms. patient reports most concern for pneumonia which x-ray did not show, showed mild CHF. Patient with a significant cardiac history patient going to ER for further evaluation for CHF transfer instructions reviewed with patient as well as explained by RN to go directly to the ER. EMS was offered, patient stated he can not drive. All questions have been answered, and the patient deny any further questions Some parts of this dictation were generated by voice recognition software and may contain typographical and/or grammatical inaccuracies. Differential Diagnosis Differential Diagnosis: Bronchitis, pneumonia, CHF, cardiac issue Medical Records Medical records reviewed: Yes I reviewed the external patient's medical records. Vital Signs Vital Signs: Vital Signs Temperature 97.6 F 09/27/25 08:48 Pulse Rate 83 09/27/25 08:48 Respiratory Rate 20 09/27/25 08:48 Blood Pressure 92/55 L 09/27/25 08:48 Pulse Oximetry 99 09/27/25 08:48 Oxygen Delivery Room Air 09/27/25 08:48 Temperature 97.6 F 09/27/25 08:48 Pulse Rate 83 09/27/25 08:48 Respiratory Rate 20 09/27/25 08:48 Blood Pressure 92/55 L 09/27/25 08:48 Pulse Oximetry 99 09/27/25 08:48 Oxygen Delivery Room Air 09/27/25 08:48 Reviewed Lab Data Lab results reviewed: Yes I reviewed the patient's lab results. Labs: Reviewed Imaging Data Radiologist's impression: EXAMINATION: XR chest 2V, 09/27/2025 9:07 MARKETING EFFECTIVENESS MANAGER HISTORY: cough x 5 weeks nonsmoker COMPARISON: No comparisons available. Technique: 2 views obtained. Findings: Mild pulmonary venous congestion. No pneumothorax. Moderate cardiomegaly. Mediastinal and hilar contours are within normal limits. Post sternotomy. Left pacemaker. Impression: Mild CHF Critical Care Time Critical Care Time Critical Care Time: No Discharge Plan Discharge Clinical Impression: Congestive heart failure, Cough Patient Disposition: Acute Care Hospital Condition: Stable Patient Language: Faroese Prescriptions: No Action albuterol sulfate 90 mcg/actuation HFA aerosol inhaler 1 puff inhalation Q4H PRN (Reason: shortness of breath or wheezing) Qty: 8.5 1RF Kerendia 20 mg tablet 20 mg PO DAILY dipyridamole 75 mg tablet 75 mg PO Q8H Rx Instructions: administer 1 hour before or 2 hours after food or meals ferrous sulfate 325 mg (65 mg iron) tablet,delayed release (DR/EC) 325 mg PO DAILY mecobalamin (vitamin B12) 1,000 mcg tablet,chewable 1,000 mcg PO DAILY Entresto 97-103 mg tablet 1 tablet PO BID atorvastatin 40 mg tablet 40 mg PO DAILY Jardiance 10 mg tablet 10 mg PO DAILY cholestyramine (with sugar) 4 gram powder in packet PO gabapentin 300 mg capsule 300 mg PO Q6-8H calcitriol 0.25 mcg capsule 0.25 mcg PO DAILY hydrocodone-acetaminophen 7.5-325 mg tablet 1 tablet PO BID PRN (Reason: pain) ropinirole 2 mg tablet 2 mg PO DAILY furosemide [Lasix] 20 mg tablet 20 mg PO QAM triamcinolone acetonide 0.1 % cream 1 applic topical BID warfarin 7.5 mg tablet PO Ozempic 2 mg/dose (8 mg/3 mL) pen injector subcut furosemide [Lasix] 20 mg tablet 20 mg PO DAILY Qty: 5 0RF finasteride 5 mg tablet 5 mg PO DAILY warfarin 5 mg tablet See Rx Instructions .ROUTE .COMPLEX Rx Instructions: Takes 5mg po on , Tue, , Tue, Sat, Sun. Takes 4mg po on Tuesday only. (DME) pen needle, diabetic [BD Ultra-Fine Mini Pen Needle] 31 gauge x 3/16 needle See Rx Instructions .ROUTE .COMPLEX Qty: 100 3RF Dose Instruction: USE DAILY WITH LEVEMIR Rx Instructions: USE DAILY WITH LEVEMIR nitroglycerin 0.4 mg tablet, sublingual 0.4 mg sublingual Q5M PRN (Reason: chest pain) Qty: 30 0RF Rx Instructions: do not exceed 3 doses per episode (DME) OneTouch Ultra Test Strip See Rx Instructions .Route Qty: 100 2RF Rx Instructions: Use to check BS BID albuterol sulfate 2.5 mg /3 mL (0.083 %) solution for nebulization 2.5 mg inhalation Q4-6H PRN (Reason: shortness of breath or wheezing) Qty: 75 0RF pantoprazole 40 mg tablet,delayed release (DR/EC) 40 mg PO QAM Qty: 90 0RF Rx Instructions: NEEDS APPOINTMENT FOR FURTHER REFILLS tamsulosin 0.4 mg capsule 0.4 mg PO DAILY Qty: 90 0RF Rx Instructions: NEEDS APPOINTMENT FOR FURTHER REFILLS Follow-up/Referrals: Leonardo,MD Tiana [Primary Care Provider, Unknown]
[2025-09-27 08:48] VITALS: BP 92/55; PULSE 83; RESP 20; TEMP 36.4; O2SAT 99
== END 2025-09-27 09:30 | disposition short-term general hospital (02) ==
PROVIDERS: Emergency Provider Nurse Practitioner; PCP Internal Medicine
DX: I50.9 Heart failure, unspecified (principal); R05.9 Cough, unspecified; I11.0 Hypertensive heart disease with heart failure; E11.9 Type 2 diabetes mellitus without complications; Z79.84 Long term (current) use of oral hypoglycemic drugs; Z79.85 Long-term (current) use of injectable non-insulin antidiabetic drugs; E78.5 Hyperlipidemia, unspecified; I25.10 Atherosclerotic heart disease of native coronary artery without angina pectoris; I25.2 Old myocardial infarction; I48.0 Paroxysmal atrial fibrillation; E66.01 Morbid (severe) obesity due to excess calories; Z68.35 Body mass index [BMI] 35.0-35.9, adult; Z95.0 Presence of cardiac pacemaker; M19.90 Unspecified osteoarthritis, unspecified site; Z79.01 Long term (current) use of anticoagulants; D64.9 Anemia, unspecified; Z96.652 Presence of left artificial knee joint; Z85.21 Personal history of malignant neoplasm of larynx; Z85.828 Personal history of other malignant neoplasm of skin
CPT/HCPCS: 71046; 99213; G0463

== ENCOUNTER 2025-09-27 10:06 | Emergency (ER) | payer MEDICARE, SELFPAY ==
--- OUTSIDE RECORDS SUMMARY | 2024-04-04 10:05 | XMS_ITS ---
Author Organization [facility] Address 1400 [facility] 61 [facility] [place] [address] Care Team Providers Care Pediatrician Name Role Phone Nhan Gigi Unavailable [phone] Social History Sex Assigned At : Social History Observation Description Sex Assigned At Male Encounters Encounter Location Date Provider Diagnosis [facility] [address] [place] [address] 04/04/2024 Gigi Justin Chronic kidney disea se, [...] Notes * IRINEOMANNIEDOB:1950 ( 75 yo F)Acc No.[id number]:04/04/2024 Patient: MANNIE APARICIO Provider: Nayeli MAE MD, F.A.C.P, F.A.S.N. :1950 A ge:74 Y S ex:Female Date:04/04/2024 Address:[address] [place] [address] [address], [place] [address] Subjective: * Chief Complaints: Objective: Assessment: * Assessment: 1. C hronic kidney disease, stage 3a - N18.31 (Primary) 2 . A nxiety disorder, unspecified - F41.9 3 . C hronic fatigue, unspecified - R53.82 ?4. R enal osteodystrophy - N25.0 5 . H eart failure, unspecified - I50.9? Plan: * Billing Information: * Visit Code: 10509 Office Visit, Est Pt., Level 5. * Procedure Codes: * Electronic signature of Fox Justin MD on 09/27/2025 at 10:11 AM DEFECTIVE CIGARETTE SLITTER Sign off status: Pending * Provider: Nayeli MAE MD, F.A.C.P, F.A.S.N. Date: 0 04/04/2024 Generated for Printing/Faxing/eTransmitting on: 11/27/2024 10:11 AM DEFECTIVE CIGARETTE SLITTER
--- OUTSIDE RECORDS SUMMARY | 2024-04-25 06:00 | XMS_ITS ---
Author Organization [facility] Address [address] [place] [address] Care Team Providers Care Dedicated Local Truck Driver Name Role Phone Nhan Gigi Unavailable [phone] Social History Sex Assigned At : Social History Observation Description Sex Assigned At Male Encounters Encounter Location Date Provider Diagnosis [place] [facility] 2043 [facility] 15 [place] [address] 04/25/2024 Gigi Justin Chronic kidney disea se, [...] Notes * IRINEOMANNIEDOB:1950 ( 75 yo F)Acc No.[id number]:04/25/2024 Progress Notes Patient: MANNIE APARICIO Provider: Nayeli MAE MD, F.A.C.P, F.A.S.N. :1950 A ge:74 Y S ex:Female Date:04/25/2024 Address:[address] [place], [place] [address] [address], [facility] Subjective: * Chief Complaints: * * Medical History: Objective: * Vitals: Assessment: * Assessment: 1. C hronic kidney disease, stage 3a - N18.31 (Primary) 2 . A nxiety disorder, unspecified - F41.9 3 . C hronic fatigue, unspecified - R53.82 ?4. R enal osteodystrophy - N25.0 5 . H eart failure, unspecified - I50.9? Plan: * Treatment: * Billing Information: * Visit Code: 82933 Office Visit, Est Pt., Level 4. * Procedure Codes: * Electronic signature of Fox Justin MD on 09/27/2025 at 10:11 AM BAT BOY/GIRL Sign off status: Pending * Provider: Nayeli MAE MD, F.A.C.P, F.A.S.N. Date: 0 04/25/2024 Generated for Printing/Faxing/eTransmitting on: 1 11/27/2024 10:11 AM BAT BOY/GIRL
--- OUTSIDE RECORDS SUMMARY | 2024-07-13 08:15 | XMS_ITS ---
Author Organization [facility] Address [address] [place] [address] Care Team Providers Care Body Component Engineer Name Role Phone Gigi Justin Unavailable [phone] Social History Sex Assigned At : Social History Observation Description Sex Assigned At Male Encounters Encounter Location Date Provider Diagnosis [place] [facility] 2043 [facility] 15 [place] [address] 07/13/2024 Gigi Justin Plan Of Treatment No Information Progress Notes * MANNIE CABELLODOB:1950 ( 75 yo F)Acc No.[id number]:07/13/2024 Progress Notes Patient: MANNIE APARICIO Provider: Nayeli MAE MD, F.Jose.C.P, F.A.S.N. :1950 A ge:74 Y S ex:Female Date:07/13/2024 Address:[address] [place] [address] [address], [place] [address] Subjective: * Chief Complaints: * * Medical History: Objective: * Vitals: Assessment: Plan: * Treatment: * Billing Information: * Visit Code: * Procedure Codes: * Electronic signature of Fox Justin MD on 09/27/2025 at 10:10 AM EMERGENCY MEDICAL TECH Sign off status: Pending * Provider: Nayeli MAE MD, F.Jose.C.P, F.A.S.N. Date: 0 07/13/2024 Generated for Printing/Faxing/eTransmitting on: 11/27/2024 10:10 AM EMERGENCY MEDICAL TECH
--- OUTSIDE RECORDS SUMMARY | 2024-12-12 09:30 | XMS_ITS ---
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) Active confirmed Problem Hyperlipidemia (25757979) Hyperlipidemia, unspecified (E78.5) Active confirmed Problem Coronary artery disease (19449498) CAD (coronary artery disease) (I25.10) Active confirmed Problem Benign prostatic hypertrophy without outflow obstruction (893402634) Benign prostatic hyperplasia without lower urinary tract symptoms (N40.0) Active confirmed Encounters Encounter Location Date Provider Diagnosis [place] [facility] [address] [facility] [address] [place] [address] 12/12/2024 Gigi Justin Chronic kidney disease, stage [...] * SUSAN CABELLO:1950 ( 75 yo F)Acc No.[id number]:12/12/2024 Progress Notes Patient: MANNIE APARICIO Provider: Nayeli MAE MD, F.Jose.Jaz.P, F.A.S.N. :1950 A ge:74 Y S ex:Female Date:12/12/2024 Address:[address] [place] [address] Subjective: * Chief Complaints: * * Medical [...] Treatment: * Billing Information: * Visit Code: 09793 Office Visit, New Pt., Level 5. * Procedure Codes: * Electronic signature of Fox Justin MD on 09/27/2025 at 10:10 AM CHEESE GRADER Sign off status: Pending * Provider: Nayeli MAE MD, F.Jose.C.P, F.A.S.N. Date: 0 12/12/2024 Generated for Printing/Faxing/eTransmitting on: 1 11/27/2024 10:10 AM CHEESE GRADER
--- OUTSIDE RECORDS SUMMARY | 2024-12-26 10:00 | XMS_ITS ---
Author Organization [facility] Address [address] [address] Care Team Providers Care Gas Station Attendant Name Role Phone Gigi Justin Unavailable [phone] Social History Sex Assigned At : Social History Observation Description Sex Assigned At Male Encounters Encounter Location Date Provider Diagnosis [place] [facility] 2043 [facility] 15 [place] [address] 12/26/2024 Gigi Justin Plan Of Treatment No Information Progress Notes * MANNIE CABELLODOB:1950 ( 75 yo F)Acc No.[id number]:12/26/2024 Progress Notes Patient: MANNIE APARICIO Provider: Nayeli MAE MD, Brandon.Jose.C.P, F.A.S.N. :1950 A ge:74 Y S ex:Female Date:12/26/2024 Address:[address] [place] [address] [address], [place] [address] Subjective: * Chief Complaints: * * Medical History: Objective: * Vitals: Assessment: Plan: * Treatment: * Billing Information: * Visit Code: * Procedure Codes: * Electronic signature of Fox Justin MD on 09/27/2025 at 10:12 AM STEEL HANGER Sign off status: Pending * Provider: Nayeli MAE MD, Brandon.Jose.C.P, F.A.S.N. Date: 0 12/26/2024 Generated for Printing/Faxing/eTransmitting on: 11/27/2024 10:12 AM STEEL HANGER
--- OUTSIDE RECORDS SUMMARY | 2025-01-02 10:00 | XMS_ITS ---
Author Organization [facility] Address [address] [facility] [address] [place] [address] Care Team Providers Care Auto Service Representative Name Role Phone Nhan Gigi Unavailable [phone] Social History Sex Assigned At : Social History Observation Description Sex Assigned At Male Problems Problem Type SNOMED Code ICD Code Onset Dates Problem Status W/U Status Risk Notes Problem Chronic kidney disease stage 2 (739155906) Chronic kidney disease, stage 2 (mild) (N18.2) Active confirmed Encounters Encounter Location Date Provider Diagnosis [place] Office [address] [facility] [address] [place] [address] 01/02/2025 Gigi Justin Chronic kidney disea se, [...] * MANNIE CABELLODOB:1950 ( 75 yo F)Acc No.[id number]:01/02/2025 Progress Notes Patient: MANNIE APARICIO Provider: Nayeli MAE MD, F.Jose.C.P, F.A.S.N. :1950 A ge:74 Y S ex:Female Date:01/02/2025 Address:[address] [place] [address] Subjective: * Chief Complaints: * * Medical [...] Treatment: * Billing Information: * Visit Code: 96112 Office Visit, Est Pt., Level 4. * Procedure Codes: * Electronic signature of Fox Justin MD on 09/27/2025 at 10:11 AM PEDIATRIC PSYCHIATRIST Sign off status: Pending * Provider: Nayeli MAE MD, F.Jose.C.P, F.A.S.N. Date: 0 01/02/2025 Generated for Printing/Faxing/eTransmitting on: 1 11/27/2024 10:11 AM PEDIATRIC PSYCHIATRIST
--- OUTSIDE RECORDS SUMMARY | 2025-02-13 10:15 | XMS_ITS ---
Author Organization [facility] Address [address] [facility] [address] [place] [address] Care Team Providers Care Sap Hana Architect Name Role Phone Gigi Justin Unavailable [phone] Social History Sex Assigned At : Social History Observation Description Sex Assigned At Male Problems Problem Type SNOMED Code ICD Code Onset Dates Problem Status W/U Status Risk Notes Problem Glycosuria (68134673) Glycosuria (R81) Active confirmed Problem Chronic pain (90595793) Other chronic pain (G89.29) Active confirmed Problem Aortic valve disorder (3480135) Nonrheumatic aortic (valve) stenosis (I35.0) Active confirmed Encounters Encounter Location Date Provider Diagnosis [place] [facility] [address] [facility] [address] [place] [address] 02/13/2025 Gigi Justin Chronic kidney disea se, stage 2 (mild) N18.2 ; Anxiety disorder, unspecified F41.9 ; Chronic fatigue, unspecified R53.82 ; Renal osteodystrophy N25.0 ; Heart failure, unspecified I50.9 ; 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 ; Hyperlipidemia, unspecified E78.5 ; CAD (coronary artery disease) I25.10 ; Benign prostatic hyperplasia without lower urinary tract symptoms N40.0 ; Glycosuria R81 ; Other chronic pain G89.29 and Nonrheumatic aortic (valve) stenosis I35.0 Assessments Encounter Date Diagnosis (ICD Code) Assessment Notes Treatment Notes Treatment Clinical Notes Section Notes 02/13/2025 Chronic kidney disease, stage 2 (mild) (ICD-10 - N18.2) 02/13/2025 Anxiety disorder, unspecified (ICD-10 - F41.9) 02/13/2025 Chronic fatigue, unspecified (ICD-10 - R53.82) 02/13/2025 Renal osteodystrophy (ICD-10 - N25.0) 02/13/2025 Heart failure, unspecified (ICD-10 - I50.9) 02/13/2025 Personal history of malignant neoplasm of larynx (ICD-10 - Z85.21) 02/13/2025 Hyperlipidemia, unspecified (ICD-10 - E78.5) 02/13/2025 CAD (coronary artery disease) (ICD-10 - I25.10) 02/13/2025 Benign prostatic hyperplasia without lower urinary tract symptoms (ICD-10 - N40.0) 02/13/2025 Glycosuria (ICD-10 - R81) 02/13/2025 Other chronic pain (ICD-10 - G89.29) 02/13/2025 Nonrheumatic aortic (valve) stenosis (ICD-10 - I35.0) Plan Of Treatment No Information Progress Notes * MANNIE CABELLODOB:1950 ( 75 yo F)Acc No.[id number]:02/13/2025 Progress Notes Patient: MANNIE APARICIO Provider: Nayeli MAE MD, F.A.C.P, F.A.S.N. :1950 A ge:75 Y S ex:Female Date:02/13/2025 Address:[address] [place] [address] Subjective: * Chief Complaints: * * Medical [...] without lower urinary tract symptoms - N40.0 1 0. G lycosuria - R81 1 1. O ther chronic pain - G89.29 1 2. N onrheumatic aortic (valve) stenosis - I35.0 Plan: * Treatment: * Billing Information: * Visit Code: 76060 Office Visit, Est Pt., Level 4. * Procedure Codes: * Electronic signature of Fox Justin MD on 09/27/2025 at 10:11 AM TURBINE ATTENDANT Sign off status: Pending * Provider: Nayeli MAE MD, F.A.C.P, F.A.S.N. Date: 0 02/13/2025 Generated for Printing/Faxing/eTransmitting on: 11/27/2024 10:11 AM TURBINE ATTENDANT
--- OUTSIDE RECORDS SUMMARY | 2025-06-12 08:30 | XMS_ITS ---
Author Organization [facility] Office Address [address] [facility] [address] [place] [address] Care Team Providers Care Time Buyer Name Role Phone Gigi Justin Unavailable [phone] Social History Sex Assigned At : Social History Observation Description Sex Assigned At Male Problems Problem Type SNOMED Code ICD Code Onset Dates Problem Status W/U Status Risk Notes Problem Sick sinus syndrome (31408498) Sick sinus syndrome (I49.5) Active confirmed Encounters Encounter Location Date Provider Diagnosis [place] [facility] [address] [facility] [address] [place] [address] 06/12/2025 Gigi Justin Chronic kidney disea se, [...] * MANNIE CABELLODOB:1950 ( 75 yo F)Acc No.[id number]:06/12/2025 Progress Notes Patient: MANNIE APARICIO Provider: Nayeli MAE MD, F.A.CNatalyaP, F.A.S.N. :1950 A ge:75 Y S ex:Female Date:06/12/2025 Address:[address] [place] [address] Subjective: * Chief Complaints: * * Medical [...] Treatment: * Billing Information: * Visit Code: 48823 Office Visit, Est Pt., Level 4. * Procedure Codes: * Electronic signature of Fox Justin MD on 09/27/2025 at 10:10 AM PM HEAD COOK Sign off status: Pending * Provider: Nayeli MAE MD, F.A.C.P, F.A.S.N. Date: 0 06/12/2025 Generated for Printing/Faxing/eTransmitting on: 11/27/2024 10:10 AM PM HEAD COOK
--- OUTSIDE RECORDS SUMMARY | 2025-09-11 12:30 | XMS_ITS ---
Author Organization [facility] Office Address [address] [place] [address] Care Team Providers Care Hybrid Corn Breeder Name Role Phone Gigi Justin Unavailable [phone] REASON FOR VISIT Dentist appointment Social History Sex Assigned At : Social History Observation Description Sex Assigned At Male Encounters Encounter Location Date Provider Diagnosis [place] [facility] [address] [facility] [address] [place] [address] 09/11/2025 Gigi Justin Plan Of Treatment No Information Progress Notes * MANNIE CABELLODOB:1950 ( 75 yo F)Acc No.[id number]:09/11/2025 Progress Notes Patient: MANNIE APARICIO Provider: Nayeli MAE MD, Brandon.Jose.C.P, F.A.S.N. :1950 A ge:75 Y S ex:Female Date:09/11/2025 Address:[address] [place] [address] [address], [place] [address] Subjective: * Chief Complaints: Objective: Assessment: Plan: * Billing Information: * Visit Code: * Procedure Codes: * Electronic signature of Fox Justin MD on 09/27/2025 at 10:10 AM SENIOR MARKETING ASSOCIATE Sign off status: Pending * Provider: Nayeli MAE MD, F.Jose.C.P, F.A.S.N. Date: 11/11/2024 Generated for Printing/Faxing/eTransmitting on: 11/27/2024 10:10 AM SENIOR MARKETING ASSOCIATE
--- NOTE | ~2025-09-27 | XR_ITS ---
EXAMINATION: XR chest 2V DATE: 09/27/2025 11:04 INDICATION: Cough TECHNIQUE: Frontal and lateral views of the chest were obtained. COMPARISON: September 27, 2025 FINDINGS: No focal consolidation, effusion or ganga pulmonary edema. No definite lymphadenopathy. Heart shadow moderately enlarged. Left-sided pacemaking device/wires, sternal retention wires, and valvular prosthesis unchanged in position. Bones and upper abdomen unremarkable. IMPRESSION: 1. No focal acute process. Reviewed, dictated and finalized at location A. D [employer] STOCK CLERK IMPRESSION: 1. No focal acute process.
--- OUTSIDE RECORDS SUMMARY | 2025-09-27 10:10 | XMS_ITS | Clinical Summary ---
Author Organization [facility] [place] Address [address] [place] [address] Care Team Providers Care Undertaker Assistant Name Role Phone Tiana Patterson MD Primary [...] Encounters Date Type Department Care Team Description 09/24/2025 External Device Data STL ABSTRACTION Provider, Abstract 08/13/2025 External Device Data [facility] ABSTRACTION Provider, [...] on file Legal Sex Male 3:06 PM SAP SD ANALYST Gender Identity Not on file Sexual Orientation [...] cm (5' 10) 11/01/2024 11: 29 AM SAP SD ANALYST Body Mass Index 33.78 11/01/2024 11:29 AM SAP SD ANALYST Plan of Treatment Upcoming Encounters Date Type Department Care Team (Late st Contact Info) Description 11/22/2025 9:15 AM SAP SD ANALYST Office Visit [facility] Oncology and Hematology - [place] [address] [facility] [address] [place] [address] Tommy Ruiz MD [address] [facility] [address] [place] [address] Health Maintenance Due Date Last [...] 08/17/2034 Insurance MEDICARE PART A AND B [facility] Care Teams Undertaker Assistant Relationship Specialty Start Date End Date Tiana Patterson MD [address] [place] [phone] PCP - General Internal Medicine 11/02/24
[2025-09-27 10:11] VITALS: BP 102/61; PULSE 90; RESP 20; TEMP 36.3; O2SAT 98
--- OUTSIDE RECORDS SUMMARY | 2025-09-27 10:11 | XMS_ITS | Data Portability ---
Author Organization [facility] Myla Lee Address [address] [place] [phone] Assessment No assessment recorded. Plan of Treatment [...] 50 mcg/0.25mL dose 12/12/2020 completed WAYNE Nuñez, [place] - [place] 12/12/2020 14:14:04 COVID-19, mRNA, LNP-S, PF, 100 mcg/0.5mL dose or 50 mcg/0.25mL dose 01/12/2021 completed WAYNE [place], [place] 01/12/2021 16:25:39 Past Encounters Encounter ID Performer Location Encounter Start Date Encounter Closed Date Diagnosis/Indication Diagnosis SNOMED-CT Code Diagnosis ICD10 Code Diagnosis IMO Codes Diagnosis Note [id number] MD Cristina Mirza 14 IM [address] [facility] [address] [place] [address] 12/12/2020 12:21:04 12/12/2020 18:38:06 Administration of SARS-CoV-2 antigen vaccine [id number] [id number] MD Cristina Mirza 14 IM [address] [facility] [address] [place] [address] 01/09/2021 12:02:47 01/12/2021 07:55:43 Administration of SARS-CoV-2 antigen vaccine [id number] Z23 Health Concerns Section Related Observation LastModified by Organization Detai ls LastModified Time None Recorded Concern Status LastModified by Organization Details LastModified Time None Recorded Advance Directives Directive None Recorded Payers Insurance Date Sequence Insurance Name Policy Number Policy Umana Covered Member ID Umana Member ID Guarantor Name 04/04/2024 [place] [facility] Reggie Nevarez [id number] Reggie Nevarez 04/04/2024 2 [place] [id number] Reggie Nevarez [id number] Reggie Nevarez 04/04/2024 1 [place] Reggie Nevarez [id number] Reggie Nevarez
--- OUTSIDE RECORDS SUMMARY | 2025-09-27 10:11 | XMS_ITS | Clinical Summary ---
Author Organization [facility] Address [address] [facility] [address] [address] Care Team Providers Care Chief Hydroelectric Station Operator Name Role Phone Tiana Patterson MD Primary Care Provider [phone] Encounters Date Type Department Care Team Description 07/19/2025 Documentation Only [employer] [facility] [facility], [facility] [address] [place] [phone] Jv Stearns DO from Last 3 Months Social History [...] st Contact Info) Description 10/08/2025 2:30 PM SYS DIR Office Visit [employer] [facility] [facility], [facility] [address] [facility] [address] [place] [address] Jv Stearns DO [address] [place] [phone] Health Maintenance Due Date Last Done [...] Colorectal Cancer Screening: Colonoscopy 08/17/2034 08/17/2024 Insurance [facility] Care Teams Chief Hydroelectric Station Operator Relationship Specialty Start Date End Date Tiana Patterson MD [address] [place] [address], [facility] [address] [place] [address] PCP - General Internal Medicine 06/11/25
--- OUTSIDE RECORDS SUMMARY | 2025-09-27 10:11 | XMS_ITS | Encounter Summary ---
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
--- OUTSIDE RECORDS SUMMARY | 2025-09-27 10:11 | XMS_ITS | Clinical Summary ---
Author Organization [facility] Address [address] [place] [address] Care Team Providers Care Air Pollution Inspector Name Role Phone Unavailable Primary Care Provider [...] age to complete this topic Insurance MEDICARE [facility]
--- OUTSIDE RECORDS SUMMARY | 2025-09-27 10:11 | XMS_ITS | Encounter Summary ---
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
--- OUTSIDE RECORDS SUMMARY | 2025-09-27 10:11 | XMS_ITS | Patient Health Record ---
Author Organization [facility] Address [address] [place] [address] Care Team Providers Care Inspector Glass Or Mirror Name Role Phone Gigi Justin Unavailable [phone] Reason For Referral No Information Medications Medication SIG (Take, Route, Frequency, Duration) Notes Start Date End Date Status Ergocalciferol 1.25 MG (55024 UT) 1 capsule Orally Once a week; Duration: 90 day(s) 04/25/2024 09/29/2025 Active Calcitriol 0.25 MCG 1 capsule Orally Onc e a day; Duration: 90 day(s) 04/25/2024 09/29/2025 Active Social History Sex Assigned At : Social History Observation Description Sex Assigned At Male Problems Problem Type SNOMED Code ICD Code Onset Dates Problem Status W/U Status Risk Notes Problem Hyperlipidemia (62819988) Hyperlipidemia, unspecified (E78.5) Active confirmed Problem Anxiety disorder (069847688) Anxiety disorder, unspecified (F41.9) Active confirmed Problem Chronic pain (80831706) Other chronic pain (G89.29) Active confirmed Problem Aortic valve disorder (4249606) Nonrheumatic aortic (valve) stenosis (I35.0) Active confirmed Problem Sick sinus syndrome (35942693) Sick sinus syndrome (I49.5) Active confirmed Problem Heart failure (27513156) Heart failure, unspecified (I50.9) Active confirmed Problem Chronic kidney disease stage 2 (256987418) Chronic kidney disease, stage 2 (mild) (N18.2) Active confirmed Problem Renal osteodystrophy (12984208) Renal osteodystrophy (N25.0) Active confirmed Problem Chronic fatigue syndrome (disorder) (49656983) Chronic fatigue, unspecified (R53.82) Active confirmed Problem Glycosuria (19978048) Glycosuria (R81) Active confirmed Problem History of malignant neoplasm of larynx (290528717) 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) Active confirmed Problem Benign prostatic hypertrophy without outflow obstruction (978948922) Benign prostatic hyperplasia without lower urinary tract symptoms (N40.0) Active confirmed Problem Coronary artery disease (16439554) CAD (coronary artery disease) (I25.10) Active confirmed Encounters Encounter Location Date Provider Diagnosis [facility] [address] [address] 12/12/2024 Gigi Justin Chronic kidney disea se, stage 3a N18.31 ; 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 ; Hyperlipidemia, unspecified E78.5 ; CAD (coronary artery disease) I25.10 and Benign prostatic hyperplasia without lower urinary tract symptoms N40.0 [facility] [address] [place] [address] 01/02/2025 Gigi Justin Chronic kidney disea se, stage 2 (mild) N18.2 ; Anxiety disorder, unspecified F41.9 ; Chronic fatigue, unspecified R53.82 ; Renal osteodystrophy N25.0 ; Heart failure, unspecified I50.9 ; 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 ; Hyperlipidemia, unspecified E78.5 ; CAD (coronary artery disease) I25.10 and Benign prostatic hyperplasia without lower urinary tract symptoms N40.0 [facility] [address] [address] 02/13/2025 Gigi Justin Chronic kidney disea se, [...] G89.29 and Nonrheumatic aortic (valve) stenosis I35.0 [facility] [address] [address] 06/12/2025 Gigi Justin Chronic kidney disea se, [...] stenosis I35.0 and Sick sinus syndrome I49.5 [facility] [place] [facility] [address] [place] [address] 12/19/2024 Gigi Justin [place] [facility] [address] [facility] [address] [place] [address] 01/02/2025 Gigi Justin Assessments Encounter Date Diagnosis [...] 02/13/2025 Anxiety disorder, unspecified (ICD-10 - F41.9) 06/12/2025 Chronic fatigue, unspecified (ICD-10 - R53.82) 01/02/2025 Anxiety disorder, unspecified (ICD-10 - F41.9) 12/12/2024 Hyperlipidemia, unspecified (ICD-10 - E78.5) 12/12/2024 CAD (coronary artery disease) (ICD-10 - I25.10) 06/12/2025 Renal osteodystrophy (ICD-10 - N25.0) 01/02/2025 Chronic fatigue, unspecified (ICD-10 - R53.82) 02/13/2025 Chronic fatigue, unspecified (ICD-10 - R53.82) 02/13/2025 Renal osteodystrophy (ICD-10 - N25.0) 06/12/2025 Heart failure, unspecified (ICD-10 - I50.9) 01/02/2025 Renal osteodystrophy (ICD-10 - N25.0) 12/12/2024 [...] Z85.21) 01/02/2025 Hyperlipidemia, unspecified (ICD-10 - E78.5) 06/12/2025 CAD (coronary artery disease) (ICD-10 - I25.10) 02/13/2025 Hyperlipidemia, unspecified (ICD-10 - E78.5) 02/13/2025 CAD (coronary artery disease) (ICD-10 - I25.10) 01/02/2025 CAD (coronary artery disease) (ICD-10 - I25.10) 06/12/2025 Benign prostatic hyperplasia without lower urinary tract symptoms (ICD-10 - N40.0) 06/12/2025 Glycosuria (ICD-10 - R81) 01/02/2025 Benign prostatic hyperplasia without lower urinary tract symptoms (ICD-10 - N40.0) 02/13/2025 Benign prostatic hyperplasia without lower urinary tract symptoms (ICD-10 - N40.0) 02/13/2025 Glycosuria (ICD-10 - R81) 06/12/2025 Other chronic pain (ICD-10 - G89.29) 06/12/2025 Nonrheumatic aortic (valve) stenosis (ICD-10 - I35.0) 02/13/2025 Other chronic pain (ICD-10 - G89.29) 02/13/2025 Nonrheumatic aortic (valve) stenosis (ICD-10 - I35.0) 06/12/2025 Sick sinus syndrome (ICD-10 - I49.5) Plan Of Treatment No Information
--- OUTSIDE RECORDS SUMMARY | 2025-09-27 10:11 | XMS_ITS | Encounter Summary ---
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
--- OUTSIDE RECORDS SUMMARY | 2025-09-27 10:11 | XMS_ITS | Encounter Summary ---
Author Organization [facility] Address [address] [place] [address] Care Team Providers Care Service Coordinator Elderly Facility Name Role Phone Bennie Nova MD Primary Care Provider Alison jeronimo Encounter Details Date Type Department Care Team (Late st Contact Info) Description 04/13/2024 Lab Requisition [facility] - DermPath Lab [address] [facility], [place] [address] Lou Clark PA-C [address] [place] [address] Neoplasm of uncertain behavior of skin Social History Tobacco Use Types Packs/Day Years Used Date Smoking Tobacco: Never Alcohol Use Standard Drinks/Week Comments Not Asked 0 (1 standard drink = 0.6 oz pur e alcohol) Sex and Gender Information Value Date Recorded Sex Assigned at Not on file 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 Luba Garcia. These tests need not be, and therefore are not, approved by the [place] Food and Drug Administration. The tests are used for clinical purposes. Billing Codes Specimen Charges Stain Charges 36081 49623 1 1 4 1:29 PM CDT DERMATOPATHOLOGY LABORATORY Embedded Images 1:29 PM CDT DERMATOPATHOLOGY LABORATORY Pathology/Cytology TISSUE SPECIMEN FROM SKIN / Unknown 04/13/2024 04/16/2024 11:01 AM CDT Miscellaneous samples (specimen) TISSUE SPECIMEN FROM SKIN / Unknown 04/13/2024 04/16/2024 11:01 AM CDT Lou Clark PA-C LAB - PATHOLOGY/CYTO LOGY ORDERABLES Final Result DERMATOPATHOLOGY LABORATORY [facility] - Department of Dermatology [facility] Medicine [address] [place] [address], [address] [phone] documented in this encounter Visit Diagnoses Diagnosis Neoplasm of uncertain behavior of skin documented in this encounter Care Teams Service Coordinator Elderly Facility Relationship Specialty Start Date End Date Bennie Nova MD PCP - General Internal Medicine 10/10/12 documented as of this encounter
--- OUTSIDE RECORDS SUMMARY | 2025-09-27 10:11 | XMS_ITS | Clinical Summary ---
Author Organization [facility] Address [address] [facility] [place] [address] Care Team Providers Care Heavy Antiarmor Weapons Infantryman Name Role Phone Bennie Nova MD Primary Care Provider Alison jeronimo Source Comments [facility],non-owned Affiliates and Associated Physician Practices is amultiple site organization consisting of ambulatory clinics and hospital sitesin [place], [place], [place] and [place]. This disclosure is being madepursuant to the Care Everywhere program and may not contain all information available regarding this patient. 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 Gender Identity Not on file Sexual Orientation Not on file Last Filed Vital Signs Vital Sign Reading Time Taken Comments Blood Pressure 182/85 10/09/2012 3:10 PM CLINICAL REIMBURSEMENT SPECIALIST Pulse 70 10/09/2012 3:10 PM CLINICAL REIMBURSEMENT SPECIALIST Temperature 36.7 C (98.1 F) 12/29/2010 11:35 AM CLINICAL REIMBURSEMENT SPECIALIST Respiratory Rate 16 12/29/2010 11:35 AM CLINICAL REIMBURSEMENT SPECIALIST Oxygen Saturation - - Inhaled Oxygen Concentration - - Weight 173.3 kg (382 lb) 10/09/2012 3:10 PM CLINICAL REIMBURSEMENT SPECIALIST Height 177.8 cm (5' 10) 10/09/2012 3:10 PM CLINICAL REIMBURSEMENT SPECIALIST Body Mass Index 54.81 10/09/2012 3:10 PM CLINICAL REIMBURSEMENT SPECIALIST Plan of Treatment Health Maintenance Due Date [...] - 1-dose 75+ series) 2025 COVID-19 VACCINE ( - 2024-2 6 season) 2025 INFLUENZA VACCINE (#1) 2025 HEPATITIS [...] patient's age to complete this topic Insurance [facility] MEDICARE [facility] BLUE [facility] ANTHEM ANTHEM MEDICARE Care Teams Heavy Antiarmor Weapons Infantryman Relationship Specialty Start Date End Date Bennie Nova MD PCP - General Internal Medicine 10/10/12
--- OUTSIDE RECORDS SUMMARY | 2025-09-27 10:11 | XMS_ITS | Encounter Summary ---
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 [address] [place] [address] PCP - General Internal Medicine 05/07/25 documented as of this encounter
--- OUTSIDE RECORDS SUMMARY | 2025-09-27 10:12 | XMS_ITS | Patient Health Record ---
Author Organization [facility] Welding Machine Operator [facility] Address [address] [place] [address] Support Name Relationship Address Phone Malcolm Nevarez Guarantor Unknown [phone] Reason For Referral No Information Plan Of Treatment No Information Insurance Providers Payer Name Payer Address Payer Phone Subscriber Number Group Number Insured Name Patient Relationship to Insured Coverage Start Date Coverage End Date [facility] [address] [place] [address] [id number] Malcolm Nevarez Self - patient is the insured 0 [employer] [place] [address] [address] [place] [address] [id number] Malcolm Nevarez Self - patient is the insured 7 [facility] [address] [place] [address] [id number] Malcolm Nevarez Self - patient is the insured 8
--- OUTSIDE RECORDS SUMMARY | 2025-09-27 10:12 | XMS_ITS | Encounter Summary ---
Author Organization [facility] Address [address] [place] [address] Care Team Providers Care Engineering Scientist Name Role Phone Bennie Nova MD Primary Care Provider Unava ilable Encounter Details Date Type Department Care Team (Late st Contact Info) Description 11/21/2019 Lab Requisition [facility] [address] [facility] [place], [place] [address] Hali Fletcher DO [address] [facility] [address] [place] [address] Social History Tobacco Use Types Packs/Day Years Used Date Smoking Tobacco: Never Alcohol Use Standard Drinks/Week Comments Not Asked 0 (1 standard drink = 0.6 oz pur e alcohol) Sex and Gender Information Value Date Recorded Sex Assigned at Not on file 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 Gender Identity Not on file Sexual Orientation Not on file documented as of this encounter Plan of Treatment Not on file documented as of this encounter Procedures Procedure Name Priority Date/Time Associated Diagnosis Comments DERMATOPATHOLOGY Routine 11/20/2019 12:0 0 AM BILINGUAL CASE MANAGER documented in this encounter Results * DERMATOPATHOLOGY (11/20/2019 12:00 AM BILINGUAL CASE MANAGER) Case Report Dermatopathology Report Case: [id number] Authorizing Provider: Hali Fletcher DO Collected: 11/20/2019 12:00 AM Ordering Location: [facility] DermPath Lab Received: 11/21/2019 01:31 PM Pathologist: Warner Garcia MD Specimen: Skin, left jehovah's witness 0 7:23 PM [facility] DERMATOPATHOLOGY LABORATORY Final Diagnosis Specimen A. 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 0 7:23 PM BILINGUAL CASE MANAGER DERMATOPATHOLOGY LABORATORY Gross Description Specimen A: Received is one formalin filled container labeled with the patient's name and designated left jehovah's witness. The specimen consists of a shave measuring [id number]. Jar 0. 0 7:23 PM [facility] DERMATOPATHOLOGY LABORATORY Microscopic Description Specimen A. SKIN, left jehovah's witness: Arising in the epidermis and extending into the dermis there are irregularly shaped aggregates of keratinocytes showing evidence of premature cornification. 0 7:23 PM BILINGUAL CASE MANAGER DERMATOPATHOLOGY LABORATORY Disclaimer An external and internal positive and negative controls are appropriate for the histochemical, immunohistochemical and immunofluorescence stain(s) in this case (if any), except where stated explicitly. The performance characteristics of the stain(s) cited in this report were developed and its performance characteristic determined by the Dermatopathology Laboratory at [facility], directed by Dr. Luba Garcia. These tests need not be, and therefore are not, approved by the [place] Food and Drug Administration. The tests are used for clinical purposes. Billing Codes Specimen Charges Stain Charges 64711 1 0 7:23 PM BILINGUAL CASE MANAGER DERMATOPATHOLOGY LABORATORY Embedded Images 0 7:23 PM [facility] DERMATOPATHOLOGY LABORATORY Pathology/Cytolog y TISSUE SPECIMEN FROM SKIN / Unknown 11/20/2019 11/21/2019 1:31 PM [facility] us Hali Fletcher DO LAB - PATHOLOGY/CYTOLOGY ORDERABLES Final Result DERMATOPATHOLOGY LABORATORY [facility] - Department of Dermatology [address] [facility] [place], 5th Floor Lab [address] [phone] documented in this encounter Visit Diagnoses Not on filedocumented in this encounter Care Teams Engineering Scientist Relationship Specialty Start Date End Date Bennie Nova MD PCP - General Internal Medicine 10/10/12 documented as of this encounter
--- OUTSIDE RECORDS SUMMARY | 2025-09-27 10:12 | XMS_ITS | Clinical Summary ---
Author Organization [facility] Office Center Address [address] [place] [address] Care Team Providers Care Industrial Plant Custodian Name Role Phone Fabian Patterson MD Primary [...] Department Care Team Description 09/09/2025 Anticoagulation Visit [facility] Cardiology [address] [place] [address] Lou White, RN 08/07/2025 Orders Only [facility] Health Information Management [address] [place] [address] Scanning, Provider 08/07/2025 Telephone [facility]iology [address] [facility] [address] [place] [phone] Jonah Momin MD INR results 08/07/2025 Anticoagulation Visit [facility] Cardiology [address] [facility] [place] [address] Lou White, RN 07/10/2025 Orders Only [facility] [place] Health Information Management [address] [place] [address] Scanning, Provider 07/10/2025 Anticoagulation Visit [facility]iology [address] [facility] [address] [place] [phone] Hilda Robledo, RN from Last 3 Months [...] on file 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 Gender Identity Not on file Sexual Orientation Not on file Last Filed Vital Signs Vital Sign Reading Time Taken Comments Blood Pressure 120/70 05/07/2025 8:56 AM CDT Pulse 85 05/07/2025 8:56 AM CDT Temperature 36.7 C (98.1 F) 08/17/2024 9:05 AM CDT Respiratory Rate 16 10/02/2024 12:46 PM DITCHING MACHINE ENGINEER Oxygen Saturation 97% 05/07/2025 8:56 AM CDT [...] , 09/22/2020 Medical Devices Implanted Type Area Loading Machine Operator Helper Device Identifier Shelf Expiration Date Model / Serial / Lot Pacemaker Pacemaker N/A: Heart Plate Plate Left: Knee Prosthetic Valve Prosthetic Valve Bilateral : Heart Procedures Procedure Name Priority Date/Time Associated Diagnosis Comments PROTIME-INR Routine 09/09/2025 SCAN - LABS 08/07/2025 PROTIME-INR Routine 08/07/2025 SCAN - LABS 07/10/2025 PROTIME-INR Routine 07/10/2025 POCT LIPID PANEL Routine 02/05/2025 8:45 AM CDT Atherosclerosis of [place] coronary artery of [place] heart without angina pectoris COLONOSCOPY 08/17/2024 8:17 AM CDT EGFR STAT 07/29/2023 10:21 AM CDT from Last 3 Months or Most Recently Relevant to Health Maintenance Results * (ABNORMAL) Protime-INR (09/09/2025) INR 5.00(A) 0.90 - 1.10 EXTERNAL LAB Blood Result [facility] Historical Provider MD LAB BLOOD ORDERABLES Kim l Result Performing Organization Address [facility] Co de Phone Number EXTERNAL LAB * SCAN - LABS (08/07/2025) Result [facility] Provider Scanning Final Result * (ABNORMAL) Protime-INR (08/07/2025) INR 1.80(A) 0.90 - 1.10 EXTERNAL LAB Blood Result [facility] Provider MD LAB BLOOD ORDERABLES Kim l Result Performing Organization Address [facility] de Phone Number EXTERNAL LAB * SCAN - LABS (07/10/2025) Result [facility] Provider Scanning Final Result * (ABNORMAL) Protime-INR (07/10/2025) INR 2.90(A) 0.90 - 1.10 EXTERNAL LAB Blood Result [facility] Provider MD LAB BLOOD ORDERABLES Kim l Result Performing Organization Address [facility] Co de Phone Number EXTERNAL LAB * POCT lipid panel (02/05/2025 8:45 AM CDT) Cholesterol, POC <100 mg/dL HDL, POC 43 mg/dL Triglycerides, POC 82 mg/dL LDL Cholesterol POC 39.6 mg/dL Chol/HDL Ratio, POC n/a Non-HDL Cholesterol, POC n/a mg/dL Cholesterol Total, POC <100 mg/dL Capillary blood 02/05/2025 8 :45 AM CDT Result [facility] Jonah Momin MD POINT OF CARE TEST ORDERABLES Fi nal Result * Colonoscopy (08/17/2024 8:17 AM CDT) Anatomical Region Laterality Modality Other Narrative Procedure Note Meryl Spears MD - 08/17/2024 8:17 AM CDT [facility] GI ENDOSCOPY Patient Name: Reggie Nevarez Procedure Date: 08/17/2024 8:17 AM Date of : 1950 Admit Type: Outpatient Age: 74 Gender: Male Attending MD: Meryl Spears M.D. Room: [facility] ENDOSCOPY ROOM 05 Note Status: Finalized [...] polypectomy, one hemostaticclip was successfully placed. Clip swimmer: [employer]. Therewas no bleeding at the end of [...] Resected and retrieved. Clip was placed. Clip swimmer: [employer]. - Diverticulosis in the left colon. Biopsied. - The distal rectum and anal verge are normal on retroflexion view. Recommendation: - Resume previous diet. - Continue present medications. - Await pathology results. Meryl Spears M.D. Meryl Spears M.D. 08/17/2024 9:11:17 AM . Number of Addenda: 0 Note Initiated On: 08/17/2024 8:17 AM Recognized by the [place] for promoting quality [...] MD LAB BLOOD ORDERABLES Final Result [facility] Department [place] [address] from Last 3 Months or Most Recently Relevant to Health Maintenance Insurance MEDICARE [facility] MEDICARE BLUE [employer]OSS MEDICARE SUPPLEMENT MEDICARE [facility] MEDICARE SUPPLEMENT Member Subscriber Plan / Payer ( fective 2008-Present) Name:Reggie Nevarez Relation to Subscriber:Self Name:Reggie Nevarez Payer ID:[id number] Type:COMMERCIAL Address: [address] [place] [id number] Care Teams Industrial Plant Custodian Relationship Specialty [place] [address] [place] [address] [address] [place] [address] PCP - General Internal Medicine 05/07/25
--- NOTE | 2025-09-27 10:21 | ECG_ITS ---
Test Date: 2025-09-27 10:25:10 Measurements Intervals Dwight Rate: 87 P: -88 PA: 103 QRS: -32 QRSD: 121 T: 125 QT: 386 QTc: 465 Interpretive Statements ELECTRONIC AV SEQUENTIAL PACEMAKER WITH APPROPRIATE SENSING AND CAPTURE ABNORMAL ECG Compared to ECG 08/06/2025 18:17:38 NO SIGNIFICANT CHANGE Electronically Signed On 09-27-2025 11:28:05 DIAMOND GRINDER by Demario Amador M.D.
[2025-09-27 10:25] VITALS: BP 98/64; PULSE 89; RESP 21; O2SAT 96
[2025-09-27 10:29] VITALS: RESP 16; O2SAT 96
[2025-09-27 11:06] LABS: Hematocrit 43.2 % (42.0-52.0); Hemoglobin 13.8 g/dL (14.0-18.0); Immature Granulocyte Percent A 0.3 % (0-0.5); Lymphocytes Absolute Auto 0.97 K/mm3 (0.9-3.2); Mean Corpuscular HGB Conc 31.9 g/dl (32-36); Mean Corpuscular Hemoglobin 29.9 pg (26-34); Mean Corpuscular Volume 93.7 fl (80-100); Nucleated Red Blood Cells Absolute Auto 0.000 K/mm3 (0.0-0.012); Nucleated Red Blood Cells Perc 0.0 % (0.0-0.2); Platelet Count Result 171 k/mm3 (150-375); Red Blood Count 4.61 M/mm3 (4.6-6.20); White Blood Count 8.7 K/mm3 (4.5-10.0)
[2025-09-27 11:18] LABS: INR 3.1; Partial Thromboplastin Time 45.4 Seconds (22.3-36.8); Prothrombin Time 31.0 Seconds (11.1-14.7)
[2025-09-27 11:29] LABS: Troponin I 0.013 ng/mL (0.000-0.034)
--- NOTE | 2025-09-27 11:33 | ED.RECABL ---
HPI - Recheck/Abnormal Lab/Rx General Chief Complaint: Recheck/Abnormal Lab/Rx Stated Complaint: cough x5 weeks. from for new CHF Time Seen by Provider: 09/27/25 10:18 History of Present Illness HPI narrative: Patient is a 75-year-old male who presents to the ER with a history of 5 weeks of flu-like symptoms. He reports his primary care provider prescribed him 1 round of antibiotics. Patient reports he went to urgent care and was prescribed a 2nd round of antibiotics. He reports his symptoms were not improving so he came to the ER for evaluation last week. Patient reports they told him he had a viral upper respiratory infection. He reports he continues to have a cough and shortness of breath, especially when he lays flat. Patient denies any recent fevers, chest pain, abdominal pain. Related Data Home Medications ?Medication ?Instructions ?Recorded ?Confirmed ?Last Taken ?Type finasteride 5 mg tablet 5 mg PO DAILY 08/12/23 08/16/25 08/11/23 History warfarin 5 mg tablet See Rx Instructions .Route .COMPLEX 08/12/23 08/16/25 08/11/23 History triamcinolone acetonide 0.1 % 1 applic topical BID 08/26/23 08/16/25 Unknown History topical cream atorvastatin 40 mg tablet 40 mg PO DAILY 05/07/24 08/16/25 Unknown History cholestyramine (with sugar) 4 gram ea PO 05/07/24 08/16/25 Unknown History powder for susp in a packet dipyridamole 75 mg tablet 75 mg PO Q8H 05/07/24 08/16/25 Unknown History empagliflozin 10 mg tablet 10 mg PO DAILY 05/07/24 08/16/25 Unknown History (Jardiance) ferrous sulfate 325 mg (65 mg 325 mg PO DAILY 05/07/24 08/16/25 Unknown History iron) tablet,delayed release finerenone 20 mg tablet (Kerendia) 20 mg PO DAILY 05/07/24 08/16/25 Unknown History mecobalamin (vitamin B12) 1,000 1,000 mcg PO DAILY 05/07/24 08/16/25 Unknown History mcg chewable tablet sacubitril 97 mg-valsartan 103 mg 1 tablet PO BID 05/07/24 08/16/25 Unknown History tablet (Entresto) semaglutide 2 mg/dose (8 mg/3 mL) mg subcut 08/08/24 08/16/25 Unknown History subcutaneous pen injector (Ozempic) warfarin 7.5 mg tablet mg PO 08/08/24 08/16/25 Unknown History calcitriol 0.25 mcg capsule 0.25 mcg PO DAILY 05/17/25 08/16/25 Unknown History gabapentin 300 mg capsule 300 mg PO Q6-8H 05/17/25 08/16/25 Unknown History furosemide 20 mg tablet (Lasix) 20 mg PO QAM 08/16/25 08/16/25 Unknown History hydrocodone 7.5 mg-acetaminophen 1 tablet PO BID PRN pain 08/16/25 08/16/25 Unknown History 325 mg tablet ropinirole 2 mg tablet 2 mg PO DAILY 08/16/25 08/16/25 Unknown History Allergies Allergy/AdvReac Type Severity Reaction Status Date / Time No Known Allergies Allergy Verified 09/27/25 10:11 Review of Systems Review of Systems: All systems reviewed & are unremarkable except as noted in HPI and below PMFSH Past Medical History Medical History Cancer of larynx History of heart attack Pacemaker PAF (paroxysmal atrial fibrillation) Morbid obesity due to excess calories Anemia Cellulitis Heart disease Heart attack CHF (congestive heart failure) CAD (coronary artery disease) Skin cancer Allergies Dyslipidemia HTN (hypertension) Arthritis Anxiety GERD (gastroesophageal reflux disease) Diabetes Surgical History Surgical History History of knee surgery trauma to both knees History of neck surgery History of bariatric surgery History of left knee replacement History of open heart surgery 1994 Open heart Mechanical Valve 2004 Family History Family History Father Diabetes mellitus Heart disease Hypertension Mother Heart disease Social History Social History Smoking status: Never smoker Alcohol intake: never Substance use: never Current Housing: Decline to Answer Concerned About Future Housing: Decline to Answer Difficulty Paying Gas/Electric Bills: Decline to Answer Difficulty Paying for Meds: Decline to Answer Currently Unemployed: Decline to Answer Education: Decline to Answer Difficulty w/ Childcare or Family Care: Decline to Answer Spiritual care concerns: No Exam Narrative: GENERAL: Well appearing, well-nourished, obese, in no acute distress. HEAD: Normocephalic, atraumatic. NECK: Supple. No adenopathy, no masses. RESPIRATORY: Airway patent, respirations nonlabored. Clear to auscultation bilaterally, no rales, rhonchi, wheezing. CARDIOVASCULAR: Clicking heart sound present (S2 click), No Murmur heart present, Peripheral pulses 2+ and equal bilaterally. Mild bilateral lower extremity edema. ABDOMINAL: Soft, nontender, nondistended, no hepatosplenomegaly. Normoactive BS. MUSCULOSKELETAL: Moves all extremities. Strength/ROM intact without gross deformities. SKIN: Warm, dry, normal color. No rashes. NEURO: A&O X3. Speech clear. Cranial nerves II-XII intact. No ataxic movements. PSYCHIATRIC: Appropriate mood and affect. Normal interaction. Course Vital Signs Vital signs: Vital Signs Temperature 36.3 C L 09/27/25 10:11 Pulse Rate 90 09/27/25 10:11 Respiratory Rate 20 09/27/25 10:11 Blood Pressure 102/61 09/27/25 10:11 Pulse Oximetry 98 09/27/25 10:11 Oxygen Delivery Room Air 09/27/25 10:11 Temperature 36.3 C L 09/27/25 10:11 Pulse Rate 90 09/27/25 14:11 Respiratory Rate 20 09/27/25 14:11 Blood Pressure 106/70 09/27/25 14:11 Pulse Oximetry 99 09/27/25 14:11 Oxygen Delivery Room Air 09/27/25 10:11 MDM - Recheck/Abnormal Lab/Rx MDM Narrative Medical decision making narrative: Patient is a 75-year-old male who presents to the ER with a history of 5 weeks of flu-like symptoms. He reports his primary care provider prescribed him 1 round of antibiotics. Patient reports he went to urgent care and was prescribed a 2nd round of antibiotics. He reports his symptoms were not improving so he came to the ER for evaluation last week. Patient reports they told him he had a viral upper respiratory infection. He reports he continues to have a cough and shortness of breath, especially when he lays flat. Patient denies any recent fevers, chest pain, abdominal pain. *patient reports he has no history of congestive heart failure, although his medical record indicates a previous diagnosis. Labs Ordered: CBC, CMP, proBNP, lipase, PTT, INR, troponin Imaging Ordered: chest x-ray Medications Ordered: Lasix p.o. Results: Patient's chest x-ray indicates No focal consolidation, effusion or ganga pulmonary edema. No definite lymphadenopathy. Heart shadow moderately enlarged. Left-sided pacemaking device/wires, sternal retention wires, and valvular prosthesis unchanged in position. Bones and upper abdomen unremarkable. His proBNP is 1860. Diagnosis: Congestive heart failure Consults: Cardiology, outpatient (already established with Dr. Momin) Patient Education/Shared MDM: Pt denies a history of CHF, but takes Lasix 20mg every day. Results of lab work and imaging shared with patient. He endorses mild improvement of symptoms following medication administration. Patient strongly advised to maintain hydration status upon discharge and follow-up with his PCP and coordinating producer as soon as possible. His Lasix dose will be increased for five days in hopes this provides him with some relief of his shortness of breath symptoms. He will be discharged home with a prescription for Lasix. Strict return precautions provided. Patient verbalized understanding and is in agreement with plan. Vital signs stable at time of discharge. All questions answered. Differential Diagnosis Differential diagnosis: Likely other (Congestive heart failure, pneumonia, upper respiratory infection) Lab Data Attestation: I reviewed the patient's lab results. 09/27/25 10:42 09/27/25 10:42 Labs: Lab Results 09/27/25 09/27/25 Range/Units 10:42 14:08 WBC 8.7 (4.5-10.0) K/mm3 RBC 4.61 (4.6-6.20) M/mm3 Hgb 13.8 L (14.0-18.0) g/dL Hct 43.2 (42.0-52.0) % MCV 93.7 (80-100) fl MCH 29.9 (26-34) pg MCHC 31.9 L (32-36) g/dl RDW 14.5 (11.5-14.5) % Plt Count 171 (150-375) k/mm3 MPV 9.9 (7.4-10.4) fl Immature Gran % (Auto) 0.3 (0-0.5) % Neut % (Auto) 81.9 H (45.5-73.1) % Lymph % (Auto) 11.1 L (18.3-44.2) % [place] % (Auto) 6.2 (2.6-8.5) % Eos % (Auto) 0.3 (0-4.4) % Baso % (Auto) 0.2 (0.2-1.2) % Lymph # (Auto) 0.97 (0.9-3.2) K/mm3 [place] # (Auto) 0.5 (0.1-0.6) K/mm3 Eos # (Auto) 0.0 (0-0.3) K/mm3 Baso # (Auto) 0.0 (0.0-0.1) K/mm3 Abs Immat Gran (auto) 0.03 (0.00-0.031) K/mm3 Absolute Neuts (auto) 7.1 H (1.3-6.7) K/mm3 Absolute Nucleated RBC 0.000 (0.0-0.012) K/mm3 Nucleated RBC % 0.0 (0.0-0.2) % PT 31.0 H (11.1-14.7) Seconds INR 3.1 APTT 45.4 H (22.3-36.8) Seconds Sodium 142 (137-145) mmol/L Potassium 4.3 (3.4-5.0) mmol/L Chloride 111 H (98-107) mmol/L Carbon Dioxide 19 L (22-30) mmol/L Anion Gap 12 (4-12) mmol/L BUN 18 (9-20) mg/dL Creatinine 0.74 (0.7-1.3) mg/dL Estim Creat Clear Calc 93 ml/min Estimated GFR > 60 (59 - ) Glucose 210 H (65-110) mg/dL Calcium 9.2 (8.4-10.2) mg/dL Total Bilirubin 0.6 (0.2-1.3) mg/dL AST 24 (17-59) U/L ALT 23 (6-50) U/L Alkaline Phosphatase 65 (38-126) U/L Troponin I 0.013 < 0.012 (0.000-0.034) ng/mL NT-Pro-B Natriuret Pep 1860 H (19.9-100) pg/mL Total Protein 6.6 (6.3-8.2) g/dL Albumin 4.0 (3.5-5.1) g/dL Lipase 83 (23-300) U/L Imaging Data Attestation: I personally reviewed and interpreted this imaging study as follows: Radiologist's impression: Impressions Chest X-Ray 09/27/25 11:14 IMPRESSION: 1. No focal acute process. Discharge Plan Discharge Clinical Impression: Congestive heart failure, Shortness of Breath, Cough, H/O mechanical aortic valve replacement Patient Disposition: Home Condition: Stable Instructions: Antibiotic Form, Heart Failure (ED) Additional Instructions: Please return to the ER with any worsening symptoms. Follow-up with your primary care provider and coordinating producer as soon as possible for further evaluation and treatment. Take all medications as prescribed, including regularly scheduled medications. You will be given a five day prescription for an increased dose of Lasix, in hopes this will help relieve some of your shortness of breath. This will make you urinate more. Please remember to drink lots of water to stay hydrated. Patient Language: Trinidadian Prescriptions: New furosemide [Lasix] 20 mg tablet 20 mg PO DAILY Qty: 5 0RF No Action albuterol sulfate 90 mcg/actuation HFA aerosol inhaler 1 puff inhalation Q4H PRN (Reason: shortness of breath or wheezing) Qty: 8.5 1RF Kerendia 20 mg tablet 20 mg PO DAILY dipyridamole 75 mg tablet 75 mg PO Q8H Rx Instructions: administer 1 hour before or 2 hours after food or meals ferrous sulfate 325 mg (65 mg iron) tablet,delayed release (DR/EC) 325 mg PO DAILY mecobalamin (vitamin B12) 1,000 mcg tablet,chewable 1,000 mcg PO DAILY Entresto 97-103 mg tablet 1 tablet PO BID atorvastatin 40 mg tablet 40 mg PO DAILY Jardiance 10 mg tablet 10 mg PO DAILY cholestyramine (with sugar) 4 gram powder in packet PO gabapentin 300 mg capsule 300 mg PO Q6-8H calcitriol 0.25 mcg capsule 0.25 mcg PO DAILY hydrocodone-acetaminophen 7.5-325 mg tablet 1 tablet PO BID PRN (Reason: pain) ropinirole 2 mg tablet 2 mg PO DAILY furosemide [Lasix] 20 mg tablet 20 mg PO QAM triamcinolone acetonide 0.1 % cream 1 applic topical BID warfarin 7.5 mg tablet PO Ozempic 2 mg/dose (8 mg/3 mL) pen injector subcut finasteride 5 mg tablet 5 mg PO DAILY warfarin 5 mg tablet See Rx Instructions .ROUTE .COMPLEX Rx Instructions: Takes 5mg po on , Tue, , Tue, Sat, Tue. Takes 4mg po on Tuesday only. (DME) pen needle, diabetic [BD Ultra-Fine Mini Pen Needle] 31 gauge x 3/16 needle See Rx Instructions .ROUTE .COMPLEX Qty: 100 3RF Dose Instruction: USE DAILY WITH LEVEMIR Rx Instructions: USE DAILY WITH LEVEMIR nitroglycerin 0.4 mg tablet, sublingual 0.4 mg sublingual Q5M PRN (Reason: chest pain) Qty: 30 0RF Rx Instructions: do not exceed 3 doses per episode (DME) OneTouch Ultra Test Strip See Rx Instructions .Route Qty: 100 2RF Rx Instructions: Use to check BS BID albuterol sulfate 2.5 mg /3 mL (0.083 %) solution for nebulization 2.5 mg inhalation Q4-6H PRN (Reason: shortness of breath or wheezing) Qty: 75 0RF pantoprazole 40 mg tablet,delayed release (DR/EC) 40 mg PO QAM Qty: 90 0RF Rx Instructions: NEEDS APPOINTMENT FOR FURTHER REFILLS tamsulosin 0.4 mg capsule 0.4 mg PO DAILY Qty: 90 0RF Rx Instructions: NEEDS APPOINTMENT FOR FURTHER REFILLS Follow-up/Referrals: Leonardo,MD Tiana [Primary Care Provider, Unknown] Jonah Momin MD [Physician, Interventional Cardiology] Referral Note: cardiology Time of Disposition: 14:48
[2025-09-27 12:12] LABS: NT Pro B Type Natriuretic Pept 1860 pg/mL (19.9-100)
[2025-09-27 12:51] VITALS: BP 107/74; PULSE 85; RESP 20; O2SAT 99
[2025-09-27 12:53] LABS: Alanine Aminotransferase 23 U/L (6-50); Albumin Level 4.0 g/dL (3.5-5.1); Alkaline Phosphatase 65 U/L (38-126); Anion Gap 12 mmol/L (4-12); Aspartate Amino Transferase 24 U/L (17-59); Bilirubin,Total 0.6 mg/dL (0.2-1.3); Blood Urea Nitrogen 18 mg/dL (9-20); Calcium 9.2 mg/dL (8.4-10.2); Carbon Dioxide 19 mmol/L (22-30); Chloride 111 mmol/L (98-107); Estimated CRCL calculation 93 ml/min; Estimated Glomerular Filt Rate > 60; Glucose 210 mg/dL (65-110); Lipase 83 U/L (23-300); Potassium 4.3 mmol/L (3.4-5.0); Sodium 142 mmol/L (137-145); Total Protein 6.6 g/dL (6.3-8.2)
--- NOTE | 2025-09-27 13:55 | ECG_ITS ---
Test Date: 2025-09-27 14:02:31 Measurements Intervals [place] Rate: 80 P: 256 NV: 100 QRS: 53 QRSD: 180 T: 174 QT: 418 QTc: 485 Interpretive Statements ELECTRONIC ATRIAL PACEMAKER ELECTRONIC VENTRICULAR PACEMAKER ABNORMAL RHYTHM ECG Electronically Signed On 09-27-2025 19:07:01 LEASING AGENT by Gisell Avilez M.D.
--- NOTE | 2025-09-27 13:55 | PC.NURSE ---
Pharmacy called for missing lasix
[2025-09-27] MEDS: FUROSEMIDE TABLET 20 MG, FUROSEMIDE TABLET 40 MG 60 MG PO (14:10)
[2025-09-27 14:11] VITALS: BP 106/70; PULSE 90; RESP 20; O2SAT 99
[2025-09-27 14:41] LABS: Troponin I < 0.012 ng/mL (0.000-0.034)
[2025-09-27 15:46] VITALS: BP 111/68; PULSE 85; RESP 20; O2SAT 98
== END 2025-09-27 15:48 | disposition home or self-care (01) ==
PROVIDERS: Emergency Provider Registered Nurse; PCP Internal Medicine
DX: I11.0 Hypertensive heart disease with heart failure (principal); I50.9 Heart failure, unspecified; R06.02 Shortness of breath; R05.9 Cough, unspecified; I25.2 Old myocardial infarction; E11.9 Type 2 diabetes mellitus without complications; I48.0 Paroxysmal atrial fibrillation
CPT/HCPCS: 36415; 71046; 80053; 83690; 83880; 84484; 85025; 85610; 85730; 93005; 99284; A9270